=== PATIENT | female | born 1940 | race Caucasian/White ===

== ENCOUNTER 2018-01-01 06:16 | Observation (INO) ==
[2018-01-01] MEDS ORDERED: Chlorhexidine Gluconate 2% 1 Pack (2 Cloths) TOPICAL SCH (07:00)
[2018-01-01] MEDS ORDERED: Sodium Chlor 0.9% Inj 500 ML IV.SIG SCH (07:00)
[2018-01-01] MEDS ORDERED: Metoprolol Tartrate 25 MG Tablet PO SCH (07:00)
[2018-01-01] MEDS ORDERED: Heparin/NS PF Inj 500 ML ONE (07:02)
[2018-01-01] MEDS ORDERED: Protamine Sulfate Inj 50 MG/5 ML Vial ONE (07:02)
[2018-01-01] MEDS ORDERED: Heparin 10,000 UNITS/10 ML Vial (for IV use) ONE (07:02)
[2018-01-01] MEDS ORDERED: Thrombin Topical 20,000 UNIT Spray Kit TOPICAL ONE (07:02)
[2018-01-01] MEDS ORDERED: Bupivacaine PF 0.5% Inj 30 ML Vial ONE (07:02)
--- NOTE | 2018-01-01 07:13 | P.PNVS ---
- Pre-operative Note Planned Procedure: LEFT UE AVF (PTFE) Interval History: Pt has been feeling well - no F/C or other change in history that would preclude surgery Had reg HD yesterday Labs: pending Blood: none needed Imaging: duplex reviewed Orders: NPO VANC 1g IV OCTOR Post-operative Destination: PACU, CPCU Operative site marked: Yes Consent: Informed consent has been obtained from Leidy Hare. I have explained the procedure in detail and discussed the risks, benefits, and potential complications. All questions have been answered. Patient Contact Information: home #: [phone]
[2018-01-01] MEDS ORDERED: Famotidine PF Inj 20 MG/2 ML Vial ONE (07:34)
[2018-01-01 07:40] LABS: Baso # (Auto) 0.1 th/mm3 (0.0-0.2); Eos % (Auto) 0.6 % (0.0-4.0); Hematocrit 40.7 % (35.0-46.0); Hemoglobin 13.1 gm/dL (11.6-15.3); Lymph # (Auto) 1.5 th/mm3 (1.0-4.8); Mean Corpuscular HGB Conc 32.2 % (32.0-36.0); Mean Corpuscular Hemoglobin 32.1 pg (27.0-34.0); Mean Corpuscular Volume 99.9 fL (80.0-100.0); Mean Platelet Volume 7.3 fL (7.0-11.0); Mono # (Auto) 0.6 th/mm3 (0.0-0.9); Neut # (Auto) 5.6 th/mm3 (1.8-7.7); Neut % (Auto) 71.4 % (16.0-70.0); Platelet Count 153 th/mm3 (150-450); Red Blood Count 4.07 mil/mm3 (4.00-5.30); Red Cell Distribution Width 20.7 % (11.6-17.2); White Blood Count 7.8 th/mm3 (4.0-11.0)
[2018-01-01 07:42] LABS: INR 1.1 Ratio
[2018-01-01 07:54] LABS: Calcium 10.4 mg/dL (8.5-10.1); Potassium 4.4 meq/L (3.5-5.1)
--- NOTE | 2018-01-01 08:02 | ECG ---
Date Performed: 01/01/2018 Time Performed: 07:01:30 PTAGE: 77 years EKG: Sinus rhythm MINIMAL VOLTAGE CRITERIA FOR LVH, CONSIDER NORMAL VARIANT BORDERLINE ECG NO PREVIOUS TRACING DOCTOR: Quoc Young Interpretating Date/Time 01/01/2018 08:00:58
--- NOTE | 2018-01-01 09:23 | P.OP ---
Date of procedure: 01/01/18 Procedure: LEFT UE AVG (Ax-Ax loop with PTFE) Implants: 6mm PTFE Anesthesia: GETA Surgeon: Robles Ventura MD Estimated blood loss (mL): 30 IV fluids (mL): 550 Pathology: none sent Operation and Findings: 4mm axillary artery (chosen because of small brachial artery) 5mm axillary vein
[2018-01-01] MEDS ORDERED: Bisacodyl 10 MG Supp RECTAL PRN (09:24)
[2018-01-01] MEDS ORDERED: fentaNYL Citrate Inj 100 MCG/2 ML Ampul ONE (10:11)
[2018-01-01] MEDS ORDERED: Sodium Chlor 0.9% Inj 250 ML IV.SIG ONE (12:00)
[2018-01-01] MEDS ORDERED: Lidocaine PF 1% Inj 5 ML Syringe INFILTRATN ONE (12:00)
[2018-01-01] MEDS ORDERED: Phenylephrine/NS 1000 MCG/10ML Syringe IV.PUSH ONE (12:00)
--- NOTE | 2018-01-01 14:03 | MP ---
cc: Robles Ventura MD DATE OF OPERATION: 01/01/2018 PREOPERATIVE DIAGNOSIS: End-stage renal disease, need for hemodialysis access. POSTOPERATIVE DIAGNOSIS: End-stage renal disease, need for hemodialysis access. PROCEDURE PERFORMED: Left axillary artery to axillary vein arteriovenous loop graft. ATTENDING SURGEON: Robles Ventura MD CONTROL TOWER RADIO OPERATOR SURGEON: Stevie Carlisle. ANESTHESIA: General. INDICATIONS FOR PROCEDURE: Ms. Hare is a 77-year-old female who has end-stage renal disease and on dialysis. She is taken to the operating room for left upper extremity access creation. Because of autogenous conduit, a prosthetic was chosen. Intraoperatively, it was found she had a very small brachial artery and decision was made to perform an axillary artery to axillary vein AV loop graft. DESCRIPTION OF PROCEDURE: Informed consent was obtained from the patient. She was taken to the operating room and placed supine on the operating table. An appropriate timeout was taken to ensure the patient's identity, the operative site and planned procedure. The administration of 1 gram of vancomycin was initiated prior to skin incision and will be discontinued after a single preoperative dose. Vancomycin was chosen because of the patient's end-stage renal disease. Everyone in the room agreed with the timeout and we proceeded. Her left arm was prepped and draped. An incision was made in the antecubital, carried down through subcutaneous tissue with electrocautery. The brachial artery was identified and noted to be quite small. An incision made in the axilla and carried down through subcutaneous tissue with electrocautery. The axillary vein and artery were both identified and encircled with a vessel loop. A tunnel was then created between these 2 incisions and then a looped tunnel was then created on the anterior aspect of the upper arm. A 6 mm PTFE was placed through these 2 tunnels, taking caution not to twist it. The patient was systemically heparinized with 3000 units of IV heparin. Proximal and distal control of the axillary artery were obtained with profunda clamps and a longitudinal arteriotomy was made with an 11 blade, extended with [place] scissors. The graft was spatulated and sewn end-to-side with running 6-0 Prolene suture. At the completion, it was flushed and noted to be hemostatic. There was a Arlene soft jaw placed on the graft as the clamps were released. Proximal and distal control of the axillary vein were obtained with profunda clamps and a longitudinal venotomy was made with an 11 blade, extended with [place] scissors. The graft was cut to an appropriate length, spatulated and sewn end-to-side with running 5-0 Prolene suture. At the completion it was flushed and noted to be hemostatic. The clamps were released. There was a nice Doppler signal in the wrist and an excellent palpable thrill in the graft. The wounds were made hemostatic, infiltrated with Marcaine and closed with 2-0 Polysorb, 3-0 Polysorb and 4-0 Monocryl. The sponge and needle counts were correct at the end of the case. I was present, scrubbed, and performed the entire procedure. MD LYNDA Odom/EPIFANIO , 01:26 PM , 02:01 PM
--- NOTE | 2018-01-01 17:40 | P.CONNP ---
History of Present Illness Service: Nephrology Consult date: 01/01/18 Requesting Physician: Robles Ventura Reason for Consult: ESRD on HD, dialysis management Primary Care Provider: No Primary Care Physician Family Provider: No Primary Care Physician Chief Complaint: HD access creation History of Present Illness: The patient is a 77 yo [place] female who was admitted to this facility today by Dr. Ventura for AVG placement. She is a dialysis patient at [facility] where she receives HD via [facility] T[facility]. Her attending dress operator is Dr. Cota who does not have privileges at this facility. Been on HD x2 months. Underlying renal failure believed to be 2/2 to hypertensive nephrosclerosis. Still urinates. Has ileostomy with reported high output. States typical UF of only 1-1.5L to her knowledge. She underwent AVG surgery today without apparent complications. We have been consulted for dialysis management. Last outpatient HD was 12/31/17. Review of Systems All other systems reviewed negative except as stated in HPI PMFSH - History History Provided By: Patient - Medical History Medical History: Medical History (Last Updated 01/01/18 @ 17:51 by DOLORES Ibrahim) Absent parathyroid gland Anemia Diverticulitis of colon with perforation End stage renal disease on dialysis History of blood product transfusion Hx of hysterectomy Hypertension Vascular dialysis catheter in place - Surgical History Surgical History: Surgical History (Last Reviewed 01/01/18 @ 11:43 by Michelle Smiley) Hx of colostomy Hx of ileostomy - Family History Family History: Family History (Last Updated 01/01/18 @ 17:52 by DOLORES Ibrahim) Son Kidney disease Daughter Kidney disease - Tobacco History Second Hand Smoke Exposure: No Tobacco Use In Past 30 Days: No Smoking Status: Never smoker - Alcohol History How Often Do You Have a Drink Containing Alcohol: Never - Substance Use History Substance History: No History of Abuse - Travel History Recent Travel in the [place] Within the Last 8 Weeks: No Recent Travel Out of the Country Within the Last 8 Weeks: No Medications and Allergies Active Medications: Active Medications Apixaban (Eliquis) 5 mg PO BID [place] Bisacodyl (Dulcolax Supp) 10 mg RECTAL DAILY PRN PRN Reason: SEVERE CONSITIPATION Chlorhexidine Gluconate (Chlorhexidine 2% Cloth) 3 pack TOPICAL [employer]IN CLEANER [facility] Stop: 01/04/18 06:50 Last Admin: 01/01/18 07:10 Dose: 3 pack Famotidine (Pepcid) 10 mg PO BID [facility] Heparin Sodium (Porcine) (Heparin Inj) 5,000 units SQ Q8H [facility] Hydromorphone HCl (Dilaudid) 2 mg PO Q4H PRN PRN Reason: PAIN SCALE 6 TO 10 Lactated Ringer's (Lr 1000 Ml Inj) 1,000 mls @ 30 mls/hr IV.SIG .Q24H [facility] Stop: 01/04/18 06:50 Last Admin: 01/01/18 07:30 Dose: 30 mls/hr Sodium Chloride (Ns Inj) 500 mls @ 30 mls/hr IV.SIG .Q10H [facility] Stop: 01/04/18 06:50 Lactulose (Lactulose Liq) 30 ml PO DAILY PRN PRN Reason: SEVERE CONSITIPATION Metoprolol Tartrate (Lopressor) 25 mg PO BIN CLEANER [facility] Stop: 01/04/18 06:50 Last Admin: 01/01/18 07:47 Dose: 25 mg Metoprolol Tartrate (Lopressor) 50 mg PO BID [facility] Miscellaneous Information (Misc Nursing Information) 1 each OTHER UNSCH PRN PRN Reason: SEE LABEL COMMENTS Stop: 01/02/18 11:03 Oxycodone HCl (Roxicodone) 5 mg PO Q4H PRN PRN Reason: PAIN SCALE 1 TO 5 Last Admin: 01/01/18 15:50 Dose: 5 mg Patient Own Medication - ( Febuxostat [Uloric] 40 Mg) Tablet 1 each PO DAILY [facility] Povidone Iodine (Betadine 5% Antisepsis Kit) 1 applicatio EACH N[employer]ANER [facility] Stop: 01/04/18 06:50 Last Admin: 01/01/18 07:51 Dose: 1 applicatio Senna/Docusate Sodium (Aidee-Colace) 1 tab PO BID [facility] Sennosides (Senokot) 17.2 mg PO Q12H PRN PRN Reason: Moderate Constipation Allergies Allergy/AdvReac Type Severity Reaction Status Date / Time Sulfa (Sulfonamide Allergy Swelling Verified 01/01/18 06:45 Antibiotics) Home Medications Medication Instructions Recorded Confirmed Type apixaban [Eliquis] 5 mg PO BID 01/01/18 01/01/18 History febuxostat [Uloric] 40 mg PO DAILY 01/01/18 01/01/18 History metoprolol tartrate 50 mg PO BID 01/01/18 01/01/18 History tramadol 50 mg PO Q6H PRN 01/01/18 01/01/18 History Exam Vital signs: Vital Signs 01/01/18 07:35 01/01/18 10:01 01/01/18 10:15 Temperature 97.5 F L 97.2 F L Pulse Rate 91 H 90 90 Respiratory Rate 16 16 16 Blood Pressure 178/81 H 125/56 L 129/60 Pulse Oximetry 100 100 97 01/01/18 10:30 01/01/18 10:45 01/01/18 11:00 Temperature Pulse Rate 86 90 80 Respiratory Rate 16 16 16 Blood Pressure 120/59 L 118/56 L 108/60 Pulse Oximetry 96 98 97 01/01/18 11:30 01/01/18 11:45 01/01/18 14:00 Temperature 98.0 F Pulse Rate 84 84 81 Respiratory Rate 16 16 Blood Pressure 118/57 L 131/61 Pulse Oximetry 97 98 01/01/18 15:37 01/01/18 16:00 01/01/18 17:00 Temperature 98.4 F Pulse Rate 82 82 84 Respiratory Rate 16 Blood Pressure 121/59 L Pulse Oximetry 99 Intake & Output 12/31/17 01/01/18 01/01/18 18:59 06:59 18:59 Intake Total 1050 / 1050 Output Total 30 / 30 Balance 1020 / 1020 Weight 53.1 kg 53.1 kg Intake: IV 500 / 500 Heparin/NS PF Inj 500 ML @ 0 500 / 500 mls/hr .ROUTE .[facility] Rx#: [id number] Anesthesia Amount 550 / 550 Output: Estimated Blood Loss 30 / 30 Other: Weight On Admission 53.1 kg - Constitutional no acute distress - Routine HEENT Exam Head: Present: normocephalic, atraumatic - Routine Neck Exam Present: supple, full ROM Comments: surgical scar present midline c/w parathyroidectomy - Routine Respiratory Exam Present: CTA bilaterally - Routine Cardiovascular Exam Present: RRR, S1, S2 - Routine Abdominal Exam Present: soft, normoactive bowel sounds Comments: Ileostomy present RLQ - Routine Extremities Exam Present: edema (trace edema B ankles), vascular access ([facility]. Newly created AVG LUE) - Routine Skin Exam Present: intact - Routine Neurological Exam Present: alert, oriented X3 Results - Lab Results 01/01/18 07:20 01/01/18 07:20 Most recent lab results Calcium 10.4 mg/dL (8.5-10.1) H 01/01/18 07:20 Assessment and Plan - Assessment (1) ESRD on dialysis Code(s): N18.6 - End stage renal disease; Z99.2 - Dependence on renal dialysis Status: Acute Plan: HD tomorrow as per regular outpatient schedule via [facility]. Attempted to contact her home dialysis facility for her regular dialysis orders , but unfortunately was placed on hold and no one ever came to phone. Minimal edema and the patient reports she still urinates quite frequently. UF 1- 1.5L as tolerated. OK to D/C after HD tomorrow if cleared by Dr. Ventura. Dialysis team aware. (2) Hypertension Code(s): I10 - Essential (primary) hypertension Status: Acute Plan: BP overall stable. (3) Hypercalcemia Code(s): E83.52 - Hypercalcemia Status: Acute - Plan Hx of hyperparathyroidism. Defer to home dress operator.
[2018-01-01] MEDS ORDERED: Gelatin 12 MM/7 MM Topical Foam TOPICAL PRN (18:00)
[2018-01-01] MEDS ORDERED: Acetaminophen 325 MG Tablet PO PRN (18:00)
[2018-01-01] MEDS ORDERED: Heparin 10,000 UNITS/10 ML Vial (for IV use) IV.FLUSH PRN (18:00)
[2018-01-01] MEDS ORDERED: Sod Chloride 0.9% Inj 1,000 ML OTHER PRN ×2 (18:00)
[2018-01-01] MEDS ORDERED: Heparin 10,000 UNITS/10 ML Vial (for IV use) OTHER PRN (18:00)
[2018-01-01] MEDS ORDERED: Albumin Human 25% Inj 100 ML IV.SIG PRN (18:00)
[2018-01-01] MEDS ORDERED: Sod Chloride 0.9% Inj 1,000 ML IV.CONT PRN (18:00)
[2018-01-01] MEDS: Metoprolol Tartrate 50 MG Tablet PO SCH (20:55)
[2018-01-01] MEDS: Famotidine 20 MG Tablet PO SCH (20:56)
[2018-01-01] MEDS: Senna/Docusate Sodium 8.6/50 MG Tablet PO SCH (20:56)
[2018-01-01] MEDS ORDERED: Famotidine 20 MG Tablet PO SCH (21:00)
[2018-01-01 22:02] LABS: Hepatitis A IgM Antibody Nonreactive (Nonreactive); Hepatitits B Surface Antigen Nonreactive (Nonreactive)
[2018-01-01] MEDS: Morphine Inj 4 MG/ML Vial IV.PUSH SCH (23:19)
[2018-01-02] MEDS: Morphine Inj 4 MG/ML Vial IV.PUSH SCH ×3 (03:18→05:17)
[2018-01-02 04:15] LABS: Baso # (Auto) 0.1 th/mm3 (0.0-0.2); Baso % (Auto) 0.7 % (0.0-2.0); Eos # (Auto) 0.1 th/mm3 (0.0-0.4); Eos % (Auto) 1.4 % (0.0-4.0); Hematocrit 34.5 % (35.0-46.0); Hemoglobin 11.5 gm/dL (11.6-15.3); Lymph # (Auto) 1.7 th/mm3 (1.0-4.8); Lymph % (Auto) 21.5 % (9.0-44.0); Mean Corpuscular HGB Conc 33.3 % (32.0-36.0); Mean Corpuscular Hemoglobin 33.4 pg (27.0-34.0); Mean Corpuscular Volume 100.2 fL (80.0-100.0); Mean Platelet Volume 7.9 fL (7.0-11.0); Mono # (Auto) 0.6 th/mm3 (0.0-0.9); Mono % (Auto) 7.9 % (0.0-8.0); Neut # (Auto) 5.5 th/mm3 (1.8-7.7); Neut % (Auto) 68.5 % (16.0-70.0); Platelet Count 135 th/mm3 (150-450); Red Blood Count 3.44 mil/mm3 (4.00-5.30); Red Cell Distribution Width 20.7 % (11.6-17.2)
[2018-01-02 05:12] LABS: Albumin 2.5 g/dL (3.4-5.0); Calcium 9.2 mg/dL (8.5-10.1); Carbon Dioxide 16.6 meq/L (21.0-32.0); Phosphorus 5.1 mg/dL (2.5-4.9)
[2018-01-02 06:17] LABS: Ovalocytes 1+
[2018-01-02 06:18] LABS: Platelet Morphology Normal (Normal); Polychromasia 2.5 % (0.0-1.9)
--- NOTE | 2018-01-02 07:53 | P.PNVS ---
Subjective Post Op Day #: 1 Procedure: L ax-ax loop AVG Subjective/Hospital Course: Pt c/o axillary incisional pain last night req IV meds better this morning This morning, she does have nausea but no SOB - improved with Zofran otherwise ok hand ok Objective Vital Signs / I&O: Vital Signs 01/01/18 10:01 01/01/18 10:15 01/01/18 10:30 Temperature 97.2 F L Pulse Rate 90 90 86 Respiratory Rate 16 16 16 Blood Pressure 125/56 L 129/60 120/59 L Pulse Oximetry 100 97 96 01/01/18 10:45 01/01/18 11:00 01/01/18 11:30 Temperature Pulse Rate 90 80 84 Respiratory Rate 16 16 16 Blood Pressure 118/56 L 108/60 118/57 L Pulse Oximetry 98 97 97 01/01/18 11:45 01/01/18 14:00 01/01/18 15:37 Temperature 98.0 F Pulse Rate 84 81 82 Respiratory Rate 16 Blood Pressure 131/61 Pulse Oximetry 98 01/01/18 16:00 01/01/18 17:00 01/01/18 18:00 Temperature 98.4 F Pulse Rate 82 84 86 Respiratory Rate 16 Blood Pressure 121/59 L Pulse Oximetry 99 01/01/18 19:00 01/01/18 20:00 01/01/18 21:00 Temperature 98 F Pulse Rate 89 88 88 Respiratory Rate 18 Blood Pressure 128/60 Pulse Oximetry 100 100 01/01/18 22:00 01/01/18 23:00 01/02/18 00:00 Temperature 97.8 F Pulse Rate 88 69 86 Respiratory Rate 18 22 Blood Pressure 137/64 Pulse Oximetry 100 01/02/18 01:00 01/02/18 01:18 01/02/18 02:00 Temperature Pulse Rate 90 92 H Respiratory Rate 22 Blood Pressure Pulse Oximetry 01/02/18 03:00 01/02/18 04:00 01/02/18 05:00 Temperature 98.1 F 97.8 F Pulse Rate 90 90 88 Respiratory Rate 20 20 Blood Pressure 121/66 126/70 Pulse Oximetry 98 99 01/02/18 06:00 Temperature Pulse Rate 85 Respiratory Rate Blood Pressure Pulse Oximetry Intake & Output 01/01/18 01/02/18 01/02/18 18:59 06:59 18:59 Intake Total 1530 / 1530 910 / 910 Output Total 30 / 30 Balance 1500 / 1500 910 / 910 Weight 53.1 kg 55 kg Intake: IV 500 / 500 Heparin/NS PF Inj 500 ML @ 0 500 / 500 mls/hr .ROUTE .[facility] Rx#: [id number] Oral 480 / 480 360 / 360 Anesthesia Amount 550 / 550 550 / 550 Output: Estimated Blood Loss 30 / 30 Other: # Voids 1 1 # Bowel Movements 1 1 Weight On Admission 53.1 kg Exam: L brachial and axillary incisions intact, ecchymoses + thrill hand strength ok Laboratory Results - last 24 hr 01/01/18 01/01/18 01/01/18 07:20 07:20 07:20 WBC 7.8 Corrected WBC RBC 4.07 Hgb 13.1 Hct 40.7 MCV 99.9 MCH 32.1 MCHC 32.2 RDW 20.7 H Plt Count 153 MPV 7.3 Prelim Diff (Auto) Slide review pending Neut % (Auto) 71.4 H Lymph % (Auto) 19.0 Travis % (Auto) 8.0 Eos % (Auto) 0.6 Baso % (Auto) 1.0 Neut # (Auto) 5.6 Lymph # (Auto) 1.5 Travis # (Auto) 0.6 Eos # (Auto) 0.0 Baso # (Auto) 0.1 WBC Differential . Diff Scan Auto diff confirmed Differential Comment . Platelet Estimate Platelet Morphology Polychromasia Ovalocytes Keratocytes Hematology Comments Sodium 137 Potassium 4.4 Chloride 103 Carbon Dioxide 26.0 Anion Gap 8 BUN 26 H Creatinine 4.23 H Estimated GFR 10 L Random Glucose 97 Calcium 10.4 H Phosphorus Albumin Hepatitis A IgM Ab Hep Bs Antigen Hep B Core IgM Ab Hep C IgG Ab Blood Type B Positive Blood Type Recheck Antibody Screen Positive H Ab Screen Tube Method Positive H Antibody Identification Direct Antiglob Test Weakly positive H Crossmatch MTS Gel Crossmatch See Detail 01/01/18 01/01/18 01/01/18 08:59 13:40 19:00 WBC Corrected WBC RBC Hgb Hct MCV MCH MCHC RDW Plt Count MPV Prelim Diff (Auto) Neut % (Auto) Lymph % (Auto) Travis % (Auto) Eos % (Auto) Baso % (Auto) Neut # (Auto) Lymph # (Auto) Travis # (Auto) Eos # (Auto) Baso # (Auto) WBC Differential Diff Scan Differential Comment Platelet Estimate Platelet Morphology Polychromasia Ovalocytes Keratocytes Hematology Comments Sodium Potassium Chloride Carbon Dioxide Anion Gap BUN Creatinine Estimated GFR Random Glucose Calcium Phosphorus Albumin Hepatitis A IgM Ab Nonreactive Hep Bs Antigen Nonreactive Hep B Core IgM Ab Nonreactive Hep C IgG Ab Nonreactive Blood Type Blood Type Recheck Antibody Screen Ab Screen Tube Method Positive H Antibody Identification Rouleaux Direct Antiglob Test Crossmatch See Detail MTS Gel Crossmatch See Detail 01/02/18 01/02/18 01/02/18 03:18 03:19 03:19 WBC Cancelled 8.0 Corrected WBC Cancelled RBC Cancelled 3.44 L Hgb Cancelled 11.5 L Hct Cancelled 34.5 L MCV Cancelled 100.2 H MCH Cancelled 33.4 MCHC Cancelled 33.3 RDW Cancelled 20.7 H Plt Count Cancelled 135 L MPV Cancelled 7.9 Prelim Diff (Auto) Slide review pending Neut % (Auto) 68.5 Lymph % (Auto) 21.5 Travis % (Auto) 7.9 Eos % (Auto) 1.4 Baso % (Auto) 0.7 Neut # (Auto) 5.5 Lymph # (Auto) 1.7 Travis # (Auto) 0.6 Eos # (Auto) 0.1 Baso # (Auto) 0.1 WBC Differential . Diff Scan Auto diff confirmed Differential Comment . Platelet Estimate Low L Platelet Morphology Normal Polychromasia 2.5 H Ovalocytes 1+ H Keratocytes Occ H Hematology Comments Cancelled Sodium 132 L Potassium 5.0 Chloride 104 Carbon Dioxide 16.6 L D Anion Gap 11 BUN 33 H Creatinine 5.18 H Estimated GFR 8 L Random Glucose 83 Calcium 9.2 D Phosphorus 5.1 H Albumin 2.5 L Hepatitis A IgM Ab Hep Bs Antigen Hep B Core IgM Ab Hep C IgG Ab Blood Type Blood Type Recheck Antibody Screen Ab Screen Tube Method Antibody Identification Direct Antiglob Test Crossmatch MTS Gel Crossmatch Assessment and Plan - Assessment (1) ESRD on dialysis Code(s): N18.6 - End stage renal disease; Z99.2 - Dependence on renal dialysis Status: Acute - Plan POD#1 s/p L UE AVG 1. Nausea subsided, pain seems to be better controlled 2. HD this morning 3. Will reassess after HD and likely d/c today Discharge Planning: likely today after HD
[2018-01-02] MEDS ORDERED: FEBUXOSTAT 40 MG PO SCH (09:00)
[2018-01-02] MEDS ORDERED: Heparin - SQ 10,000 UNITS/ML Vial SQ SCH (10:00)
[2018-01-02] MEDS: Senna/Docusate Sodium 8.6/50 MG Tablet PO SCH (11:52)
[2018-01-02] MEDS: Metoprolol Tartrate 50 MG Tablet PO SCH (11:52)
[2018-01-02] MEDS: Famotidine 20 MG Tablet PO SCH (11:53)
--- NOTE | 2018-01-02 12:57 | P.DS ---
Discharge Summary - Admission Date 01/01/18 09:24 - Admission Diagnosis (1) ESRD on dialysis - Discharge Date 01/02/18 - Discharge Diagnosis (1) AVF (arteriovenous fistula) Status: Acute (2) ESRD on dialysis Status: Chronic - Summary Brief History from admission: Pt with a hx of ESRD on HD admitted for L UE access revision Procedure: L ax-ax loop AVG Significant Findings: + thrill Pt with L UE swelling and ecchymosis Palpable radial pulse present No hand pain Abnormal Lab Results 01/01/18 01/01/18 01/01/18 07:20 08:59 13:40 WBC Corrected WBC RBC Hgb Hct MCV MCH MCHC RDW Plt Count MPV Prelim Diff (Auto) Neut % (Auto) Lymph % (Auto) Dare % (Auto) Eos % (Auto) Baso % (Auto) Neut # (Auto) Lymph # (Auto) Dare # (Auto) Eos # (Auto) Baso # (Auto) WBC Differential Diff Scan Differential Comment Platelet Estimate Platelet Morphology Polychromasia Ovalocytes Keratocytes Hematology Comments Sodium Potassium Chloride Carbon Dioxide Anion Gap BUN Creatinine Estimated GFR Random Glucose Calcium Phosphorus Albumin Hepatitis A IgM Ab Hep Bs Antigen Hep B Core IgM Ab Hep C IgG Ab Ab Screen Tube Method Positive H Antibody Identification Rouleaux Crossmatch See Detail MTS Gel Crossmatch See Detail See Detail 01/01/18 01/02/18 01/02/18 19:00 03:18 03:19 WBC Cancelled Corrected WBC Cancelled RBC Cancelled Hgb Cancelled Hct Cancelled MCV Cancelled MCH Cancelled MCHC Cancelled RDW Cancelled Plt Count Cancelled MPV Cancelled Prelim Diff (Auto) Neut % (Auto) Lymph % (Auto) Dare % (Auto) Eos % (Auto) Baso % (Auto) Neut # (Auto) Lymph # (Auto) Dare # (Auto) Eos # (Auto) Baso # (Auto) WBC Differential Diff Scan Differential Comment Platelet Estimate Platelet Morphology Polychromasia Ovalocytes Keratocytes Hematology Comments Cancelled Sodium 132 L Potassium 5.0 Chloride 104 Carbon Dioxide 16.6 L D Anion Gap 11 BUN 33 H Creatinine 5.18 H Estimated GFR 8 L Random Glucose 83 Calcium 9.2 D Phosphorus 5.1 H Albumin 2.5 L Hepatitis A IgM Ab Nonreactive Hep Bs Antigen Nonreactive Hep B Core IgM Ab Nonreactive Hep C IgG Ab Nonreactive Ab Screen Tube Method Antibody Identification Crossmatch MTS Gel Crossmatch 01/02/18 03:19 WBC 8.0 Corrected WBC RBC 3.44 L Hgb 11.5 L Hct 34.5 L MCV 100.2 H MCH 33.4 MCHC 33.3 RDW 20.7 H Plt Count 135 L MPV 7.9 Prelim Diff (Auto) Slide review pending Neut % (Auto) 68.5 Lymph % (Auto) 21.5 Dare % (Auto) 7.9 Eos % (Auto) 1.4 Baso % (Auto) 0.7 Neut # (Auto) 5.5 Lymph # (Auto) 1.7 Dare # (Auto) 0.6 Eos # (Auto) 0.1 Baso # (Auto) 0.1 WBC Differential . Diff Scan Auto diff confirmed Differential Comment . Platelet Estimate Low L Platelet Morphology Normal Polychromasia 2.5 H Ovalocytes 1+ H Keratocytes Occ H Hematology Comments Sodium Potassium Chloride Carbon Dioxide Anion Gap BUN Creatinine Estimated GFR Random Glucose Calcium Phosphorus Albumin Hepatitis A IgM Ab Hep Bs Antigen Hep B Core IgM Ab Hep C IgG Ab Ab Screen Tube Method Antibody Identification Crossmatch MTS Gel Crossmatch Hospital Course: 77/F with a PMH of ESRD admitted for a L UE access revision POD 1 pt doing well w/ c/o nausea this am (relieved with Zofran) HD done this am pt w/o nausea or vomiting Pt clear for d/c with post op follow up in 3W D/C care and management discussed w/ pt all questions answered E- Forcse reviewed- Rx out pt pain medication for post operative pain control - Discharge Instructions Any questions or concerns: Call [facility] at [facility] [phone] Discharge Plan - Discharge Disposition Patient Disposition: 01 Discharge Home - Discharge Condition Condition: Good - Discharge Order Discharge Orders: Discharge Order (Routine); Ordered 01/02/18 Ordered By: Krista Le - Discharge Details Anticipated Discharge Date: 01/02/18 - Physicians Team Primary Care Provider: Primary Care Neema Veliz Attending Provider: Robles Ventura Other Providers: Tosha Umanzor MD - Rxs /Orders / Referrals /Forms Prescriptions: New hydrocodone-acetaminophen [[place]] 5-325 mg Tablet 1 tab PO Q4H PRN (Reason: Pain) 3 Days Qty: 18 RF: 0 ondansetron [Zofran ODT] 4 mg Tablet,Disintegrating 4 mg PO Q6-8H PRN (Reason: nausea) 3 Days Qty: 12 RF: 0 Continue apixaban [Eliquis] 5 mg Tablet 5 mg PO BID febuxostat [Uloric] 40 mg Tablet 40 mg PO DAILY metoprolol tartrate 50 mg Tablet 50 mg PO BID tramadol 50 mg Tablet 50 mg PO Q6H PRN (Reason: Pain) Referrals: Primary Care Neema Veliz [Primary Care Provider] - See Instructions - Discharge Instructions Additional Instructions: DIET You may resume your dialysis diet MEDICATION You may resume your daily home medications You were prescribed a narcotic pain medication that may cause constipation- Take with an over the counter stool softener You were prescribed a narcotic pain medication that may cause drowsiness- No driving while taking this medication WOUND CARE You may shower then pat dry incision Leave your incision open to air Do not apply any creams or ointments to your incision as it may loosen the surgical glue Call to report an increase in redness, drainage or swelling ACTIVITY Activity as tolerated No heavy lifting over a gallon of milk- left arm- for 10 days No B/P readings or lab draws - Left arm
== END 2018-01-02 13:57 | disposition home or self-care (01) ==
LOC: HCPC 06:16 → HSDC 06:16
PROVIDERS: ADMIT Surgery; ATTEND Surgery
PROC: AVGFTUE (ICD-10-PCS; 2018-01-01 08:03)

== ENCOUNTER 2018-01-10 11:48 | Inpatient (IN) ==
[2018-01-10] MEDS ORDERED: Albumin Human 25% Inj 100 ML IV.SIG PRN (19:42)
[2018-01-10] MEDS ORDERED: Sod Chloride 0.9% Inj 1,000 ML OTHER PRN ×2 (19:42)
[2018-01-10] MEDS ORDERED: Gelatin 12 MM/7 MM Topical Foam TOPICAL PRN (19:42)
[2018-01-10] MEDS ORDERED: Heparin 10,000 UNITS/10 ML Vial (for IV use) OTHER PRN (19:42)
[2018-01-10] MEDS ORDERED: Sod Chloride 0.9% Inj 1,000 ML IV.CONT PRN (19:42)
[2018-01-10] MEDS ORDERED: Acetaminophen 325 MG Tablet PO PRN (19:42)
--- NOTE | 2018-01-10 20:01 | P.CONNP ---
History of Present Illness Service: Nephrology Consult date: 01/10/18 Requesting Physician: Jameson Huff Reason for Consult: ESRD management Primary Care Provider: No Primary Care Physician Family Provider: No Primary Care Physician History of Present Illness: Patient is a 77-year-old white female with history of end-stage renal disease, ileostomy, she stated that she had left AV graft placed on 01/01/[address] Ventura, she goes to dialysis on Saturday, and Saturday, her last dialysis was on Saturday and she missed her dialysis on as she developed diarrhea and some nausea and stated she was too weak and sick to go to dialysis, today she went to the emergency has left arm is hurting, there is swelling present in the left arm as well, she said her stomach has been and she has some nausea which is persistent, she states she has a diverticular rupture causing colostomy and colon surgery, after 2 years it was reversed and she had complications including abdominal pain diarrhea and constipation, she had another procedure and underwent ileostomy as she has too many adhesions. Patient stated that she started hemodialysis since September. Review of Systems Constitutional: Reports anorexia, Reports weight loss Eyes: Denies blind spots, Denies blurry vision, Denies bulging eyes, Denies change in vision, Denies double vision, Denies discharge, Denies dry eyes, Denies floaters, Denies irritation, Denies itchy eyes, Denies loss of vision, Denies pain, Denies requires corrective lenses, Denies sensitivity to light, Denies other Ears, Nose, Mouth, and Throat: Denies abnormal hearing, Denies bleeding gums, Denies bad breath, Denies change in voice, Denies dental pain, Denies difficulty swallowing, Denies dizziness, Denies dry mouth, Denies ear discharge , Denies ear pain, Denies facial pain, Denies headache(s), Denies hearing loss, Denies hoarseness, Denies lip swelling, Denies nosebleed, Denies mouth lesions, Denies mouth pain, Denies nasal congestion, Denies nasal discharge, Denies nasal obstruction, Denies nasal trauma, Denies neck lump, Denies neck pain, Denies nose pain, Denies pain with swallowing, Denies poor balance, Denies post nasal drip, Denies ringing in the ears, Denies sinus pain, Denies sinus pressure , Denies sore throat, Denies throat swelling, Denies tongue swelling, Denies other Cardiovascular: Denies chest pain, Denies chest pain at rest, Denies chest pain with activity, Denies excessive sweating, Denies fainting, Denies fast heart rate, Denies foot swelling, Denies generalized swelling, Denies irregular heart rhythm, Denies leg pain with activity, Denies leg sores, Denies leg swelling, Denies lightheadedness, Denies radiating jaw, neck or arm pain, Denies rapid, pounding, or irregular heartbeat, Denies shortness of breath, Denies shortness of breath with activity, Denies shortness of breath when lying down, Denies shortness of breath causing sudden awakening, Denies slow heart rate, Denies other Respiratory: Denies change in phlegm color, Denies chest congestion, Denies cough, Denies coughing up blood, Denies excessive phlegm production, Denies pain on inspiration, Denies pain with cough, Denies shortness of breath, Denies shortness of breath with activity, Denies snoring, Denies stridor, Denies wheezing, Denies other Gastrointestinal: Reports abdominal pain, Reports nausea Musculoskeletal: Reports joint pain, Reports radiating pain into limb Neurologic: Reports weakness PMFSH - History History Provided By: Patient - Medical History Medical History: Medical History (Last Reviewed 01/10/18 @ 19:46 by Telma Nguyen RN) Absent parathyroid gland Anemia DVT (deep venous thrombosis) Diverticulitis of colon with perforation End stage renal disease on dialysis History of blood product transfusion Hx of hysterectomy Hypertension Pulmonary embolism Vascular dialysis catheter in place - Surgical History Surgical History: Surgical History (Last Reviewed 01/10/18 @ 12:25 by Oksana Andrews RN) Hx of colostomy Hx of ileostomy - Family History Family History: Family History (Last Reviewed 01/10/18 @ 12:26 by Oksana Andrews RN) Son Kidney disease Daughter Kidney disease - Tobacco History Second Hand Smoke Exposure: No Smoking Status: Never smoker - Alcohol History How Often Do You Have a Drink Containing Alcohol: Never - Substance Use History Substance History: No History of Abuse Medications and Allergies Active Medications: Active Medications Acetaminophen (Tylenol) 650 mg PO Q4H PRN PRN Reason: Temp > 100.4 Acetaminophen (Tylenol) 650 mg PO UNSCH PRN PRN Reason: SEE LABEL COMMENTS Clonidine HCl (Catapres) 0.1 mg PO UNSCH PRN PRN Reason: SEE LABEL COMMENTS Diphenhydramine HCl (Benadryl) 25 mg PO UNSCH PRN PRN Reason: SEE LABEL COMMENTS Epoetin Justice (Epogen Inj) 4,000 unit IV.PUSH UNSCH PRN PRN Reason: SEE LABEL COMMENTS Gelatin (Gelfoam 12 Mm/7 Mm Topical) 1 foam TOPICAL PRN PRN PRN Reason: help stop bleeding from site Gentamicin Sulfate (Gentamicin Inj) 20 mg OTHER WITH DIALYSIS PRN PRN Reason: Dwell Gentamycin Lock Heparin Sodium (Porcine) (Heparin Inj) 8,000 units OTHER WITH DIALYSIS PRN PRN Reason: for machine prime Heparin Sodium (Porcine) (Heparin Inj) 1,000 units OTHER WITH DIALYSIS PRN PRN Reason: Dwell Heparin to Fill Catheter Sodium Chloride (Ns Inj) 1,000 mls @ 0 mls/hr OTHER .Q0M PRN PRN Reason: for prime and rinse back Sodium Chloride (Ns Inj) 1,000 mls @ 200 mls/hr OTHER .Q5H PRN PRN Reason: for dialyzer flush PRN Sodium Chloride (Ns Inj) 1,000 mls @ 0 mls/hr IV.CONT .Q0M PRN PRN Reason: hypotension / volume replace Albumin Human (Flexbumin 25% Inj) 100 mls @ 60 mls/hr IV.SIG WITH DIALYSIS PRN PRN Reason: hypotension / volume replace Lactulose (Lactulose Liq) 30 ml PO DAILY PRN PRN Reason: SEVERE CONSITIPATION Mannitol (Mannitol Inj) 12.5 gm IV.PUSH UNSCH PRN PRN Reason: hypotension / volume replace Nitroglycerin (Nitrostat Sl) 0.4 mg SL Q5M PRN PRN Reason: CHEST PAIN Ondansetron HCl (Zofran Inj) 4 mg IV.PUSH UNSCH PRN PRN Reason: NAUSEA OR VOMITING Senna/Docusate Sodium (Aidee-Colace) 1 tab PO BID [place] Sodium Chloride (Ns Flush) 5 ml IV.FLUSH PRN PRN PRN Reason: flush each lumen during HD Allergies Allergy/AdvReac Type Severity Reaction Status Date / Time Sulfa (Sulfonamide Allergy Swelling Verified 01/10/18 12:23 Antibiotics) Home Medications Medication Instructions Recorded Confirmed Type apixaban [Eliquis] 5 mg PO BID 01/10/18 01/11/18 History febuxostat [Uloric] 40 mg PO DAILY 01/10/18 01/11/18 History metoprolol tartrate 50 mg PO BID 01/10/18 01/11/18 History ondansetron HCl [Zofran] 8 mg PO TID PRN 01/10/18 01/11/18 History tramadol 50 mg PO Q6H 01/10/18 01/11/18 History Exam Vital signs: Intake & Output 01/10/18 01/10/18 01/11/18 06:59 18:59 06:59 Weight 52.3 kg Other: Weight On Admission 52.3 kg - Constitutional no acute distress - Routine HEENT Exam Head: Present: normocephalic - Routine Neck Exam Present: supple, full ROM - Routine Respiratory Exam Present: CTA bilaterally - Routine Cardiovascular Exam Present: RRR - Routine Abdominal Exam Present: soft, tenderness (Ileostomy in place) - Routine Extremities Exam Present: tenderness (Left arm AV graft positive thrill) - Routine Neurological Exam Present: alert, oriented X3 Results - Lab Results 01/11/18 04:15 01/11/18 04:15 Assessment and Plan - Assessment (1) ESRD on dialysis Code(s): N18.6 - End stage renal disease; Z99.2 - Dependence on renal dialysis Status: Chronic Plan: Patient goes on dialysis on Saturday, and Saturday next dialysis is due on Saturday, potassium is 5.3 Continue to monitor her while in the hospital, patient has permacath and she will require hemodialysis while in the hospital This can be done in the morning I placed orders for hemodialysis tomorrow AV graft with positive thrill and I do not think it is infected there is localized edema due to recent surgery vascular surgery has been consulted (2) Hypertension Code(s): I10 - Essential (primary) hypertension Status: Acute Plan: Continue to monitor blood pressure (2) Hypertension Qualifiers: Hypertension type: essential hypertension Qualified Code(s): I10 - Essential (primary) hypertension
[2018-01-10] MEDS ORDERED: Dextrose 5%/NaCl 0.45% Inj 500 ML IV.SIG ONE (20:42)
--- NOTE | 2018-01-10 20:57 | P.HPIM ---
History of Present Illness Primary Care Physician: No Primary Care Physician History of Present Illness: This is a 77 year female with a PMH of HTN, H/o Perforated Diverticulitis s/p Colostomy, ESRD on HD / and s/p AVG placement 01/01/[address] Ventura who was transferred from [place] for admission due to LUE swelling. Pt reports left arm swelling x2 days in addition to generalized weakness and several episodes of diarrhea. C diff cultures sent in [place], pending results. Denies fever or chills. On arrival, has been hypotensive w/ BP 81/45, HR 89, O2 sat 100% on RA, Afebrile. Labs from today w/ WBC normal, Hgb 11.3, INR 1.0, K+ 5.3, Creatinine 7.0. Seen by Dr. Arash gonzalez/ no indication for surgical intervention at this time. S/p eval by Dr. Beau gonzalez/ plans for continued HD. Shortly after admission, pt also noted to by lethargic, BS 40's, s/p hypoglycemic protocol. Pt denies any complaints at this time, states "I'm hungry". - Diagnosis (1) AVF (arteriovenous fistula) (2) ESRD on dialysis (3) Hypotension (4) Hypoglycemia (5) Diarrhea Inpatient Certification: I certify that the inpatient services were ordered in accordance with Medicare regulations governing the order. This includes certification that hospital inpatient services are reasonable and necessary and in the case of services not specified as inpatient-only under 42 CFR 419.22(n), that they are appropriately provided as inpatient services in accordance to with the 2-midnight benchmark under 43 CFR 412.3(e) Estimated Total Length of Stay (Days): 3 Plans for Post Hospital Care: Not yet determined Review of Systems All other systems reviewed negative except as stated in HPI PMFSH - History History Provided By: Patient - Medical History Medical History: Medical History (Last Reviewed 01/10/18 @ 19:46 by Telma Nguyen RN) Absent parathyroid gland Anemia DVT (deep venous thrombosis) Diverticulitis of colon with perforation End stage renal disease on dialysis History of blood product transfusion Hx of hysterectomy Hypertension Pulmonary embolism Vascular dialysis catheter in place - Surgical History Surgical History: Surgical History (Last Reviewed 01/10/18 @ 12:25 by Oksana Andrews RN) Hx of colostomy Hx of ileostomy - Family History Family History: Family History (Last Reviewed 01/10/18 @ 12:26 by Oksana Andrews RN) Son Kidney disease Daughter Kidney disease - Tobacco History Second Hand Smoke Exposure: No Smoking Status: Never smoker - Alcohol History How Often Do You Have a Drink Containing Alcohol: Never - Substance Use History Substance History: No History of Abuse Medications and Allergies Active Medications: Active Medications Acetaminophen (Tylenol) 650 mg PO Q4H PRN PRN Reason: Temp > 100.4 Acetaminophen (Tylenol) 650 mg PO UNSCH PRN PRN Reason: SEE LABEL COMMENTS Clonidine HCl (Catapres) 0.1 mg PO UNSCH PRN PRN Reason: SEE LABEL COMMENTS Diphenhydramine HCl (Benadryl) 25 mg PO UNSCH PRN PRN Reason: SEE LABEL COMMENTS Epoetin Justice (Epogen Inj) 4,000 unit IV.PUSH UNSCH PRN PRN Reason: SEE LABEL COMMENTS Gelatin (Gelfoam 12 Mm/7 Mm Topical) 1 foam TOPICAL PRN PRN PRN Reason: help stop bleeding from site Gentamicin Sulfate (Gentamicin Inj) 20 mg OTHER WITH DIALYSIS PRN PRN Reason: Dwell Gentamycin Lock Heparin Sodium (Porcine) (Heparin Inj) 8,000 units OTHER WITH DIALYSIS PRN PRN Reason: for machine prime Heparin Sodium (Porcine) (Heparin Inj) 1,000 units OTHER WITH DIALYSIS PRN PRN Reason: Dwell Heparin to Fill Catheter Sodium Chloride (Ns Inj) 1,000 mls @ 0 mls/hr OTHER .Q0M PRN PRN Reason: for prime and rinse back Sodium Chloride (Ns Inj) 1,000 mls @ 200 mls/hr OTHER .Q5H PRN PRN Reason: for dialyzer flush PRN Sodium Chloride (Ns Inj) 1,000 mls @ 0 mls/hr IV.CONT .Q0M PRN PRN Reason: hypotension / volume replace Albumin Human (Flexbumin 25% Inj) 100 mls @ 60 mls/hr IV.SIG WITH DIALYSIS PRN PRN Reason: hypotension / volume replace Dextrose/Sodium Chloride (D5w-1/2 Ns Inj) 500 mls @ 0 mls/hr IV.SIG .Q0M ONE Stop: 01/10/18 20:43 Lactulose (Lactulose Liq) 30 ml PO DAILY PRN PRN Reason: SEVERE CONSITIPATION Mannitol (Mannitol Inj) 12.5 gm IV.PUSH UNSCH PRN PRN Reason: hypotension / volume replace Morphine Sulfate (Morphine Inj) 2 mg IV.PUSH Q4H PRN PRN Reason: PAIN 6-10 Nitroglycerin (Nitrostat Sl) 0.4 mg SL Q5M PRN PRN Reason: CHEST PAIN Ondansetron HCl (Zofran Inj) 4 mg IV.PUSH UNSCH PRN PRN Reason: NAUSEA OR VOMITING Senna/Docusate Sodium (Aidee-Colace) 1 tab PO BID [place] Sodium Chloride (Ns Flush) 5 ml IV.FLUSH PRN PRN PRN Reason: flush each lumen during HD Allergies Allergy/AdvReac Type Severity Reaction Status Date / Time Sulfa (Sulfonamide Allergy Swelling Verified 01/10/18 12:23 Antibiotics) Home Medications Medication Instructions Recorded Confirmed Type apixaban [Eliquis] 5 mg PO BID 01/10/18 01/10/18 History febuxostat [Uloric] 40 mg PO DAILY 01/10/18 01/10/18 History metoprolol tartrate 50 mg PO BID 01/10/18 01/10/18 History ondansetron HCl [Zofran] 8 mg PO TID PRN 01/10/18 01/10/18 History tramadol 50 mg PO Q6H 01/10/18 01/10/18 History Exam Vital signs: Intake & Output 01/10/18 01/10/18 01/11/18 06:59 18:59 06:59 Weight 52.3 kg Other: Weight On Admission 52.3 kg Narrative: PE: GENERAL: Pleasant elderly white female in no acute distress. Mildly of the lethargic but answering questions per HEENT: PERRLA, EOMI. No scleral icterus or conjunctival pallor. No lid lag or facial droop. CARDIOVASCULAR: Regular rate and rhythm. No obvious murmurs to auscultation. No chest tenderness to palpation. RESPIRATORY: No obvious rhonchi or wheezing. Clear to auscultation. Breath sounds equal bilaterally. GASTROINTESTINAL: Abdomen soft, non-tender, nondistended. BS normal. Colostomy w / brown watery stool MUSCULOSKELETAL: Extremities without clubbing, cyanosis, or edema. No obvious deformities. LUE w/ mild erythema/edema NEUROLOGICAL: Awake, alert and oriented x4. No focal neurologic deficits. Moving both upper and lower extremities spontaneously. Caprini VTE Risk Assessment Caprini VTE Risk Assessment: No/Low Risk (score <= 1) Caprini Risk Assessment Model: Point Value = 1 Point Value = 2 Point Value = 3 Point Value = 5 Age 41-60 Minor surgery BMI > 25 kg/m2 Swollen legs Varicose veins or History of unexplained or recurrent spontaneous Oral contraceptives or hormone replacement Sepsis (< 1 month) Serious lung disease, including pneumonia (< 1 month) Abnormal pulmonary function Acute myocardial infarction Congestive heart failure (< 1 month) History of inflammatory bowel disease Medical patient at bed rest Age 61-74 Arthroscopic surgery Major open surgery (> 45 min) Laparoscopic surgery (> 45 min) Malignancy Confined to bed (> 72 hours) Immobilizing plaster cast Central venous access Age >= 75 History of VTE Family history of VTE Factor V Leiden Prothrombin [id number] Lupus anticoagulant Anticardiolipin antibodies Elevated serum homocysteine Heparin-induced thrombocytopenia Other congenital or acquired thrombophilia Stroke (< 1 month) Elective arthroplasty Hip, pelvis, or leg fracture Acute spinal cord injury (< 1 month) Prophylaxis Regimen: Total Risk Factor Score Risk Level Prophylaxis Regimen 0-1 Low Early ambulation 2 Moderate Order ONE of the following: *Sequential Compression Device (SCD) *Heparin 5000 units SQ BID 3-4 Higher Order ONE of the following medications: *Heparin 5000 units SQ TID *Enoxaparin/Lovenox 40 mg SQ daily (WT < 150 kg, CrCl > 30 mL/min) *Enoxaparin/Lovenox 30 mg SQ daily (WT < 150 kg, CrCl > 10-29 mL/min) *Enoxaparin/Lovenox 30 mg SQ BID (WT < 150 kg, CrCl > 30 mL/min) AND/OR *Sequential Compression Device (SCD) 5 or more Highest Order ONE of the following medications: *Heparin 5000 units SQ TID (Preferred with Epidurals) *Enoxaparin/Lovenox 40 mg SQ daily (WT < 150 kg, CrCl > 30 mL/min) *Enoxaparin/Lovenox 30 mg SQ daily (WT < 150 kg, CrCl > 10-29 mL/min) *Enoxaparin/Lovenox 30 mg SQ BID (WT < 150 kg, CrCl > 30 mL/min) AND *Sequential Compression Device (SCD) Assessment and Plan - Assessment (1) AVF (arteriovenous fistula) Code(s): I77.0 - Arteriovenous fistula, acquired Status: Acute (2) ESRD on dialysis Code(s): N18.6 - End stage renal disease; Z99.2 - Dependence on renal dialysis Status: Chronic (3) Hypotension Code(s): I95.9 - Hypotension, unspecified Status: Acute (4) Hypoglycemia Code(s): E16.2 - Hypoglycemia, unspecified Status: Acute (5) Diarrhea Code(s): R19.7 - Diarrhea, unspecified Status: Acute - Plan A/P: 1. LUE Edema: s/p LUE AVG by Dr. Ventura 01/01/18, now w/ worsening erythema/ edema. S/p eval by Dr. Antoine, no planned intervention at this time. Afebrile, no leukocytosis, however concern for possible cellulitis/early sepsis in light of hypotension and episodes of hypoglycemia. Check STAT repeat labs, Lactic Acid, start Vanc/Zosyn, monitor closely. 2. ESRD on HD: T//, s/p eval by Dr. Yanez, will arrange HD as scheduled. Monitor I/O. 3. Hypotension: BP 80's systolic since arrival, currently in ICU, continue close monitoring, IVF bolus, maintenance fluids-caution w/ ESRD but no signs of acute fluid overload. Monitor closely. Consult Intensivists as needed. 4. Hypoglycemia: BS 30-40's during admission, check STAT BMP, Lactic Acid for possible Sepsis, Hypoglycemic Protocol, start maintenance [id number]. 5. Diarrhea: reports ongoing diarrhea x2-3 days, C diff cultures sent, pending , will follow. 6. DVT Prophylaxis: SCD/Teds 7. Social work for d/c planning as needed 8. Case discussed w/ ER physician at length, labs/records/imaging reviewed by me. H&P: Quality - VTE Deep Vein Thrombosis/Pulmonary Embolism Present on Admission: No
--- NOTE | 2018-01-10 21:14 | MB ---
cc: Krysta Snyder MD, Slobodan MD DATE: 01/10/2018 REASON FOR CONSULTATION: Status post AV graft, left upper arm swelling and renal failure. HISTORY OF PRESENT ILLNESS: This 77-year-old female with end-stage renal disease underwent placement of ab axillary artery to axillary vein PTFE graft by Dr. Ventura on 01/01. Patient developed some swelling in the arm and pain in his stomach, so she presents to the emergency room and now is transferred for further care to [facility]. Question arises about the swelling of her upper arm and possible vascular implications. PAST MEDICAL HISTORY: Complex includes end-stage renal disease, previous sigmoid diverticular rupture with a colostomy and a reversal, followed by complications such as diarrhea, hypertension. PAST SURGICAL HISTORY: Colon resection, hysterectomy and above noted AV fistula. SOCIAL HISTORY: The patient does not drink, does not smoke, never did. MEDICATIONS: Multiple and can be found on the chart. PHYSICAL EXAMINATION: GENERAL: Reveals a pleasant 77-year-old lady in no acute distress. HEENT: Normocephalic. No trauma to the head. Pupils are equal, reactive. Extraocular muscles intact. NECK: Bilateral carotid pulses. No bruits. CHEST: Bilateral breath sounds. HEART: Regular rhythm. ABDOMEN: Soft. No rebound, no guarding, no masses. Slightly tender on palpation, but no suspicious areas. PELVIS: Stable. EXTREMITIES: Lower extremities are within normal limits with good proximal and distal pulses. No acute vascular deficit. Upper extremities - the patient on the left side a graft which is axillary to axillary loop. The area is swollen and somewhat red over the graft. I do hear a good Doppler signal in the graft and some thrill at the very connection, so the graft is patent. In addition, the patient has palpable ulnar and radial pulse bilaterally and equal and no signs of steal syndrome. The swelling in the upper arm over the graft is consistent with cellulitis with some redness, but patient does not have a fluctuance or an abscess. This is currently mainly inflammatory in nature. We will observe this carefully and if there is worsening of the symptoms either locally or systemically, the index of suspicion for infection might arise and at that point patient might need surgical exploration and possible drainage of the area. Unfortunately, once the graft is exposed, frequently AV graft has to be sacrificed, so decision to explore as to be made very judiciously and as a last resort option. We will continue to follow the patient see how she does. IMPRESSION AND PLAN: The patient does not have steal syndrome. Based on this, I believe the patient has a very nicely constructed AV graft. We will place some warm compresses to decrease the swelling and place the patient on antibiotics. There is no acute abdominal condition at his time either. I thank much for referral. Critical care time 38 minutes. MD WALT Murphy/ , 08:53 PM , 09:13 PM [email or web address]
[2018-01-10] MEDS ORDERED: Dextrose 50% in Water Syringe 50 ML ONE ×2 (21:17→21:33)
[2018-01-10] MEDS ORDERED: Dextrose 50% in Water 50 ML Vial IV.PUSH PRN (21:27)
[2018-01-10] MEDS: Senna/Docusate Sodium 8.6/50 MG Tablet PO SCH (21:50)
[2018-01-10] MEDS ORDERED: Vancomycin Consult Pharmacy 1 EACH OTHER SCH (22:00)
[2018-01-10 22:16] LABS: Creatine Kinase 29 U/L (26-192)
[2018-01-10 22:26] LABS: Bilirubin,Urine Negative (Negative); Clarity,Urine Clear (Clear); Color,Urine Yellow (Yellw/Straw); Glucose,Urine (UA) 50 mg/dL (Negative); Leukocyte Esterase,Urine Negative (Negative); Nitrite,Urine Negative (Negative); Specific Gravity,Urine 1.012 (1.002-1.035)
[2018-01-10] MEDS: Dextrose 5%/NaCl 0.9% Inj 1,000 ML IV.CONT SCH (22:30)
[2018-01-10] MEDS: Piperacil/Tazo 2.25 GM Premix 50 ML IV.SIG SCH (22:44)
[2018-01-11 00:27] LABS: Calcium 8.5 mg/dL (8.5-10.1); Carbon Dioxide 13.4 meq/L (21.0-32.0); Potassium 4.3 meq/L (3.5-5.1)
[2018-01-11] MEDS: Morphine Inj 4 MG/ML Vial IV.PUSH PRN ×4 (00:32→21:17)
[2018-01-11 01:19] LABS: Hepatitis A IgM Antibody Nonreactive (Nonreactive); Hepatitits B Surface Antigen Nonreactive (Nonreactive)
[2018-01-11] MEDS: Acetaminophen 325 MG Tablet PO PRN ×3 (03:00→23:13)
[2018-01-11] MEDS ORDERED: Sodium Chlor 0.9% Inj 500 ML IV.SIG ONE ×2 (04:45→06:55)
[2018-01-11 04:58] LABS: Alanine Aminotransferase 34 U/L (10-53); Albumin 2.1 g/dL (3.4-5.0); Alkaline Phosphatase 266 U/L (45-117); Anion Gap 12 meq/L (5-15); Aspartate Aminotransferase 55 U/L (15-37); Blood Urea Nitrogen 59 mg/dL (7-18); Calcium 8.6 mg/dL (8.5-10.1); Carbon Dioxide 14.1 meq/L (21.0-32.0); Chloride 107 meq/L (98-107); Glomerular Filtration Rate 5 mL/min (>89); Glucose,Random 106 mg/dL (74-106); Potassium 5.3 meq/L (3.5-5.1); Sodium 133 meq/L (136-145); Total Protein 6.9 g/dL (6.4-8.2)
[2018-01-11] MEDS: Piperacil/Tazo 2.25 GM Premix 50 ML IV.SIG SCH ×4 (05:28→21:30)
--- NOTE | 2018-01-11 07:29 | P.CONCC ---
History of Present Illness Service: critical care Consult date: 01/11/18 Requesting Physician: Linda Alvarez Reason for Consult: Septic shock Primary Care Provider: No Primary Care Physician Family Provider: No Primary Care Physician Chief Complaint: Hypotension sepsis History of Present Illness: This is a 77 year female with a PMH of end-stage renal disease on dialysis( Saturday) HTN, H/o Perforated Diverticulitis s/p Colostomy. She recently had AVG placement by Dr. Ventura on 01/01/18. Patient presented to the [facility] emergency department on 01/10/2018 for left upper extremity swelling and was transferred to [facility] for admission. She also had generalized weakness and diarrhea. (C diff cultures sent in [place] pending). Initially patient was hypotensive and received multiple fluid boluses with improvement in blood pressure has been hypotensive w/ BP 81/45, HR 89, O2 sat 100% on RA, Afebrile. Seen by Dr. Means, no indication for surgical intervention at this time. Patient was placed in the ICU for persistent hypotension, overnight received 1.5L NS boluses again for hypotension. Despite fluid boluses map remained in low 50s indicating persistent worsening septic shock and critical care medicine was consulted. Patient is currently receiving vancomycin and Zosyn renally dosed. I have instructed RN to give 500 mL fluid bolus followed by starting Levophed. Patient had a fever up to 102.7. On my exam left lower surrounding the AV graft incision appears red and warm and swollen. This appears to be the source of infection and I have discussed with Dr. Antoine who will evaluate the patient again. Get ID consult. Continue current antibiotics. Patient also gave a history of pulmonary embolism had been on Coumadin for last 10 years also , recently 2 months ago switched to Eliquis Review of Systems All other systems reviewed negative except as stated in HPI PMFSH - History History Provided By: Patient - Medical History Medical History: Medical History (Last Reviewed 01/10/18 @ 19:46 by Telma Nguyen RN) Absent parathyroid gland Anemia DVT (deep venous thrombosis) Diverticulitis of colon with perforation End stage renal disease on dialysis History of blood product transfusion Hx of hysterectomy Hypertension Pulmonary embolism Vascular dialysis catheter in place - Surgical History Surgical History: Surgical History (Last Reviewed 01/10/18 @ 12:25 by Oksanayony Andrews RN) Hx of colostomy Hx of ileostomy - Family History Family History: Family History (Last Reviewed 01/10/18 @ 12:26 by Oksana Andrews RN) Son Kidney disease Daughter Kidney disease - Tobacco History Second Hand Smoke Exposure: No Smoking Status: Never smoker - Alcohol History How Often Do You Have a Drink Containing Alcohol: Never - Substance Use History Substance History: No History of Abuse Medications and Allergies Active Medications: Active Medications Acetaminophen (Tylenol) 650 mg PO Q4H PRN PRN Reason: Temp > 100.4 Last Admin: 01/11/18 03:00 Dose: 650 mg Acetaminophen (Tylenol) 650 mg PO UNSCH PRN PRN Reason: SEE LABEL COMMENTS Chlorhexidine Gluconate (Chlorhexidine 2% Cloth) 3 pack TOPICAL DAILY@0400 [place] Stop: 01/17/18 03:59 Chlorhexidine Gluconate (Chlorhexidine 2% Cloth) 3 pack TOPICAL DAILY@0400 PRN PRN Reason: Extra cloth needed Stop: 01/17/18 03:59 Clonidine HCl (Catapres) 0.1 mg PO UNSCH PRN PRN Reason: SEE LABEL COMMENTS Dextrose (D50w Vial) 50 ml IV.PUSH UNSCH PRN PRN Reason: PER HYPOGLYCEMIA PROTOCOL Diphenhydramine HCl (Benadryl) 25 mg PO UNSCH PRN PRN Reason: SEE LABEL COMMENTS Epoetin Justice (Epogen Inj) 4,000 unit IV.PUSH UNSCH PRN PRN Reason: SEE LABEL COMMENTS Gelatin (Gelfoam 12 Mm/7 Mm Topical) 1 foam TOPICAL PRN PRN PRN Reason: help stop bleeding from site Gentamicin Sulfate (Gentamicin Inj) 20 mg OTHER WITH DIALYSIS PRN PRN Reason: Dwell Gentamycin Lock Glucagon (Glucagon Inj) 1 mg OTHER PRN PRN PRN Reason: for Hypoglycemia Protocol Heparin Sodium (Porcine) (Heparin Inj) 8,000 units OTHER WITH DIALYSIS PRN PRN Reason: for machine prime Heparin Sodium (Porcine) (Heparin Inj) 1,000 units OTHER WITH DIALYSIS PRN PRN Reason: Dwell Heparin to Fill Catheter Sodium Chloride (Ns Inj) 1,000 mls @ 0 mls/hr OTHER .Q0M PRN PRN Reason: for prime and rinse back Sodium Chloride (Ns Inj) 1,000 mls @ 200 mls/hr OTHER .Q5H PRN PRN Reason: for dialyzer flush PRN Sodium Chloride (Ns Inj) 1,000 mls @ 0 mls/hr IV.CONT .Q0M PRN PRN Reason: hypotension / volume replace Albumin Human (Flexbumin 25% Inj) 100 mls @ 60 mls/hr IV.SIG WITH DIALYSIS PRN PRN Reason: hypotension / volume replace Dextrose/Sodium Chloride (D5w/Normal Saline Inj) 1,000 mls @ 42 mls/hr IV.CONT .[id number] [facility] Last Admin: 01/10/18 22:30 Dose: 42 mls/hr Pharmacy Profile Note (Vancomycin Consult Pharmacy) 0 mls @ 0 mls/hr OTHER UNSCH [facility] Piperacillin/Tazobactam/Dextrose (Zosyn 2.25 Gm Premix) 50 mls @ 100 mls/hr IV.SIG Q6H [facility] Last Infusion: 01/11/18 05:58 Dose: Infused Lactulose (Lactulose Liq) 30 ml PO DAILY PRN PRN Reason: SEVERE CONSITIPATION Mannitol (Mannitol Inj) 12.5 gm IV.PUSH UNSCH PRN PRN Reason: hypotension / volume replace Morphine Sulfate (Morphine Inj) 2 mg IV.PUSH Q4H PRN PRN Reason: PAIN 6-10 Last Admin: 01/11/18 00:32 Dose: 2 mg Mupirocin (Bactroban 2% Nasal Oint) 1 applicatio NASAL BID [facility] Stop: 01/15/18 21:01 Nitroglycerin (Nitrostat Sl) 0.4 mg SL Q5M PRN PRN Reason: CHEST PAIN Ondansetron HCl (Zofran Inj) 4 mg IV.PUSH UNSCH PRN PRN Reason: NAUSEA OR VOMITING Senna/Docusate Sodium (Aidee-Colace) 1 tab PO BID [facility] Last Admin: 01/10/18 21:50 Dose: Not Given Sodium Chloride (Ns Flush) 5 ml IV.FLUSH PRN PRN PRN Reason: flush each lumen during HD Allergies Allergy/AdvReac Type Severity Reaction Status Date / Time Sulfa (Sulfonamide Allergy Swelling Verified 01/10/18 12:23 Antibiotics) Home Medications Medication Instructions Recorded Confirmed Type apixaban [Eliquis] 5 mg PO BID 01/10/18 01/11/18 History febuxostat [Uloric] 40 mg PO DAILY 01/10/18 01/11/18 History metoprolol tartrate 50 mg PO BID 01/10/18 01/11/18 History ondansetron HCl [Zofran] 8 mg PO TID PRN 01/10/18 01/11/18 History tramadol 50 mg PO Q6H 01/10/18 01/11/18 History Physical Exam Vital signs: Vital Signs 01/10/18 20:00 01/11/18 00:00 01/11/18 04:00 Temperature 99.9 F H 98.6 F 102.9 F H Pulse Rate 98 H 90 120 H Respiratory Rate 24 20 26 H Blood Pressure 89/47 L 128/59 L 78/39 L Pulse Oximetry 96 100 100 Intake & Output 01/10/18 01/11/18 01/11/18 18:59 06:59 18:59 Intake Total 1920 / 1920 Output Total 850 / 850 Balance 1070 / 1070 Weight 59.9 kg Intake: IV 1200 / 1200 D50W Syringe 50 ML @ 0 mls/hr . 100 / 100 ROUTE .STK-MED ONE Rx#:[id number] D5W-1/2 NS Inj 500 ML @ Wide 500 / 500 Open IV.SIG .Q0M ONE Rx#: [id number] Zosyn 2.25 GM Premix 50 ML @ 100 / 100 100 mls/hr IV.SIG Q6H [place] Rx#: [id number] NS Inj 500 ML @ Wide Open IV. 500 / 500 SIG BOLUS ONE Rx#:[id number] Oral 720 / 720 Output: Urine Amount (Catheter) 350 / 350 Indwelling Urethral Catheter 350 / 350 Stool Amount (Stoma) 500 / 500 Right Lower Abdomen 500 / 500 Other: Date of Last Bowel Movement 01/10/18 Weight On Admission 52.3 kg Narrative: PE: GENERAL: Pleasant elderly white female critically ill hypotensive, appears septic HEENT: PERRLA, EOMI. No scleral icterus or conjunctival pallor. No lid lag or facial droop. CARDIOVASCULAR: Regular rate and rhythm. No chest tenderness to palpation. RESPIRATORY: No obvious rhonchi or wheezing. Clear to auscultation. Breath sounds equal bilaterally. GASTROINTESTINAL: Abdomen soft, non-tender, nondistended. BS normal. Colostomy present MUSCULOSKELETAL: Left arm surrounding AV graft incisions, tender, swollen and erythematous. Unable to express any pus NEUROLOGICAL: Awake, alert and oriented x4. No focal neurologic deficits. Follows commands 4 - Urinary Catheter Management Indwelling Urethral Catheter Cath placed during this visit: yes Reason for continuing: Hourly intake/output Insertion date: 01/10/18 Insertion time: 20:00 Septic Shock Reassessment Septic shock perfusion: reassessment completed Assessment and Plan - Assessment and Plan Plan: System based assessment and plan: NEURO: -Minimize sedation -Mild lethargy most likely secondary to severe sepsis RESP: History of DVT/pulmonary embolism -Currently Eliquis is placed on hold in anticipation of invasive procedures -Her pulmonary embolism and DVT was postoperative and was about 10 years ago -DuoNeb every 6 hours scheduled and as needed -Aggressive pulmonary toilet CV: Septic shock Lactic acidosis -Normal saline IV fluids 2L bolus -Levophed to keep map above 65 -Hold home antihypertensives (on metoprolol 50 mg twice daily at home) -Trend lactic acid GI: History of colostomy -N.p.o., IV famotidine -Colostomy care : ESRD -Patient has end-stage renal disease and is on Saturday, , Saturday schedule for dialysis -Nephrology Dr. 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 Antoine following for vascular, patient may need surgical debridement -F/U Blood cultures, C Diff -RUE venous US ordered HEME: Chronic apixaban use -Monitor CBC, coags -Holding apixaban ENDO: -Electrolyte replacement per protocol PROPH: -Bilateral lower extremity SCDs. Famotidine. Avoid chemical DVT prophylaxis, hold apixaban for possible surgical intervention LINES: -Utilize peripheral IVs, right IJ central line placed today 01/11/2018 CC time 45 min Ms. Hare is a 77-year-old lady with end-stage roommate recently placed AV graft with severe septic shock probably from graft infection. Requiring pressors, may need surgical intervention. Code Status: Full Discussed Condition With: Dr. Snyder, Dr. Alvarez
--- NOTE | 2018-01-11 08:11 | P.PCN ---
Date of procedure: 01/11/18 Pre-op diagnosis: septic shock Post-op diagnosis: same Procedure: Procedure ultrasound-guided right subclavian central line placement Indication septic shock Central line checklist completed, time out completed. I wore a surgical cap, mask with protective eyewear, full gown and sterile gloves throughout the procedure. Right shoulder and neck region was prepped using chlorhexidine scrub and draped in sterile fashion. The right subclavian vein was identified using the ultrasound. Anesthesia was achieved over the vein using 1% lidocaine. The introducer needle was inserted into the right subclavian vein under direct ultrasound visualization. Venous blood was withdrawn. The syringe was removed and a guidewire was advanced into the introducer needle. A small incision was made at the skin surface with a scalpel and the introducer needle was exchanged for a dilator over the guidewire. After appropriate dilation was obtained, the dilator was exchanged over the wire for a triple lumen, 7F, antibiotic coated central venous catheter. The wire was removed and the catheter was sutured in place at 17 cm. A sterile central line dressing was placed over the catheter at the insertion site. The patient tolerated the procedure without any hemodynamic compromise. At time of procedure completion, all ports aspirated and flushed properly. Post-procedure chest x-ray is pending at this time. Anesthesia: regional Surgeon: Darion Trinidad Estimated blood loss (mL): 1 Pathology: none sent Condition: critical Disposition: ICU
--- NOTE | 2018-01-11 08:37 | XR ---
EXAM DATE: 01/11/2018 8:32 AM EDT AGE/SEX: 77 years / Female INDICATIONS: Central line placement, right side. CLINICAL DATA: This is the patient's subsequent encounter. Patient reports that signs and symptoms h ave been present for 1 day and indicates a pain score of 0/10. MEDICAL/SURGICAL HISTORY: Hypertension. . Vascular dialysis cath. COMPARISON: [facility], CHEST 1V SINGLE AP, 01/10/2018. . FINDINGS: A single AP view of the chest demonstrates the lungs to be symmetrically aerated without evidence of mass, infiltrate or effusion. The cardiomediastinal contours are unremarkable. Osseous structures a re intact. Left-sided vascular catheter unchanged. Right subclavian central line with tip in the rig ht atrium. No pneumothorax CONCLUSION: Adequate placement of right subclavian central line. Electronically signed by: Abhinav Christian MD 01/11/2018 8:36 AM EDT
[2018-01-11] MEDS: Heparin 10,000 UNITS/10 ML Vial (for IV use) OTHER PRN (09:05)
[2018-01-11 09:18] LABS: Baso % (Auto) 0.1 % (0.0-2.0); Eos # (Auto) 0.2 th/mm3 (0.0-0.4); Eos % (Auto) 1.1 % (0.0-4.0); Hematocrit 29.8 % (35.0-46.0); Hemoglobin 9.7 gm/dL (11.6-15.3); Lymph # (Auto) 0.2 th/mm3 (1.0-4.8); Lymph % (Auto) 1.5 % (9.0-44.0); Mean Corpuscular HGB Conc 32.5 % (32.0-36.0); Mean Corpuscular Hemoglobin 33.1 pg (27.0-34.0); Mean Corpuscular Volume 101.9 fL (80.0-100.0); Mono # (Auto) 0.6 th/mm3 (0.0-0.9); Mono % (Auto) 3.5 % (0.0-8.0); Neut # (Auto) 14.9 th/mm3 (1.8-7.7); Neut % (Auto) 93.8 % (16.0-70.0); Platelet Count 76 th/mm3 (150-450); Red Blood Count 2.92 mil/mm3 (4.00-5.30); Red Cell Distribution Width 18.9 % (11.6-17.2); White Blood Count 15.8 th/mm3 (4.0-11.0)
[2018-01-11 09:43] LABS: Troponin I 0.05 ng/mL (0.02-0.05)
[2018-01-11] MEDS: Senna/Docusate Sodium 8.6/50 MG Tablet PO SCH ×2 (10:10→21:33)
[2018-01-11] MEDS: Famotidine PF Inj 20 MG/2 ML Vial IV.PUSH SCH ×2 (10:10→20:58)
[2018-01-11] MEDS: Mupirocin 2% Nasal Oint Topical Syringe NASAL SCH ×2 (10:10→20:58)
--- NOTE | 2018-01-11 10:23 | US ---
EXAM DATE: 01/11/2018 10:19 AM EDT AGE/SEX: 77 years / Female INDICATIONS: Right upper extremity pain and swelling. CLINICAL DATA: This is the patient's initial encounter. Patient reports that signs and symptoms have been present for 3 days and indicates a pain score of 6/10. MEDICAL/SURGICAL HISTORY: . Hypertension. End-stage renal disease on hemodialysis. Anemia. Di verticulitis of colon with perforation. Pulmonary embolism. Absent parathyroid gland. . Hysterecto my. Colostomy. Ileostomy. AVG fistula 01/01/2018. COMPARISON: No prior exams available for comparison. FINDINGS: Exam somewhat limited. Cephalic and basilic veins are not seen. No deep venous thrombosis in the left radial, ulnar, brachial, axillary and clavian veins. Left IJ is patent. No deep venous th rombosis seen within the AV fistula which appears widely patent. There is an area of mixed echogenici ty in the left axilla likely old hematoma Other: None. CONCLUSION: 1. No deep venous thrombosis in the visualized veins. 2. AV fistula is patent. Electronically signed by: Abhinav Christian MD 01/11/2018 10:22 AM EDT
[2018-01-11 11:02] LABS: Eosinophils 2 % (0-4); Monocytes 5 % (0-8); Platelet Morphology Normal (Normal)
--- NOTE | 2018-01-11 11:34 | P.PNNP ---
Subjective Interval history: Patient is having fever, abdominal pain, nausea left upper extremity is less swollen ultrasound showed good flow Physical Exam Vital signs: Vital Signs 01/10/18 20:00 01/11/18 00:00 01/11/18 04:00 Temperature 99.9 F H 98.6 F 102.9 F H Pulse Rate 98 H 90 120 H Respiratory Rate 24 20 26 H Blood Pressure 89/47 L 128/59 L 78/39 L Pulse Oximetry 96 100 100 01/11/18 09:26 Temperature Pulse Rate Respiratory Rate Blood Pressure Pulse Oximetry 100 Intake & Output 01/10/18 01/11/18 01/11/18 18:59 06:59 18:59 Intake Total 1920 / 1920 100 / 100 Output Total 850 / 850 1500 / 1500 Balance 1070 / 1070 -1400 / -1400 Weight 59.9 kg Intake: IV 1200 / 1200 100 / 100 D50W Syringe 50 ML @ 0 mls/hr . 100 / 100 ROUTE .STK-MED ONE Rx#:[id number] Flexbumin 25% Inj 100 ML @ 60 100 / 100 mls/hr IV.SIG WITH DIALYSIS PRN Rx#:[id number] D5W-1/2 NS Inj 500 ML @ Wide 500 / 500 Open IV.SIG .Q0M ONE Rx#: [id number] Zosyn 2.25 GM Premix 50 ML @ 100 / 100 100 mls/hr IV.SIG Q6H [place] Rx#: [id number] NS Inj 500 ML @ Wide Open IV. 500 / 500 SIG BOLUS ONE Rx#:[id number] Oral 720 / 720 Output: Hemodialysis Amount 1500 / 1500 Urine Amount (Catheter) 350 / 350 Indwelling Urethral Catheter 350 / 350 Stool Amount (Stoma) 500 / 500 Right Lower Abdomen 500 / 500 Other: Date of Last Bowel Movement 01/10/18 Weight On Admission 52.3 kg - Constitutional severe distress - Routine HEENT Exam Head: Present: normocephalic (Painful) Eye: Present: EOMI - Routine Neck Exam Present: supple - Routine Respiratory Exam Present: CTA bilaterally - Routine Cardiovascular Exam Present: tachycardia - Routine Abdominal Exam Present: tenderness (Ileostomy) - Routine Extremities Exam Present: edema - Routine Neurological Exam Present: alert - Urinary Catheter Management Indwelling Urethral Catheter Cath placed during this visit: yes Reason for continuing: Hourly intake/output Insertion date: 01/10/18 Insertion time: 20:00 Assessment and Plan - Assessment (1) ESRD on dialysis Code(s): N18.6 - End stage renal disease; Z99.2 - Dependence on renal dialysis Status: Chronic Plan: Patient experiencing a lot of pain and has fever and chills as well Etiology of sepsis unclear possibility of AV graft infection however the swelling is down in [place] is good Other possibility is abdominal pain possible intestinal blockage she has output and ileostomy, we can get a CT scan Discussed with Dr. Trinidad Seen during hemodialysis 1 L UF as tolerated (2) Hypertension Code(s): I10 - Essential (primary) hypertension Status: Acute Qualifiers: Hypertension type: essential hypertension Qualified Code(s): I10 - Essential (primary) hypertension (3) Sepsis Code(s): A41.9 - Sepsis, unspecified organism Status: Acute Plan: Patient is covered on antibiotics C. difficile was negative CT scan of the abdomen will be ordered Left arm AV graft Doppler ultrasound done good flow Repeat cultures as needed Vancomycin, Zosyn, metronidazole
--- NOTE | 2018-01-11 12:02 | P.PNCC ---
Subjective 24 Hour Review/Hospital Course: 01/11/2018 The AV graft site in the left upper arm is much less swollen today and the redness is decreased It still appears to be somewhat firm but much improved Have discussed this with Dr. Trinidad and the given the fact that once this is opened up the chances are we will not be able to save the AV graft Unless patient worsens clinically I would certainly avoid doing exploration of the graft and drainage for at that time probably graft was have to be sacrificed Considering that conservative management is working well I would just stick with it for the time being In addition patient has some abdominal pain which is being worked up but patients with renal failure end-stage renal disease do sometimes have abdominal pain which is not quite explainable and frequently elusive Abdomen is soft no rebound no guarding or masses are noted We will continue to follow and if necessary we will explore the graft but I believe this should be a last resort option Objective Vital Signs / I&O: Vital Signs 01/10/18 20:00 01/11/18 00:00 01/11/18 04:00 Temperature 99.9 F H 98.6 F 102.9 F H Pulse Rate 98 H 90 120 H Respiratory Rate 24 20 26 H Blood Pressure 89/47 L 128/59 L 78/39 L Pulse Oximetry 96 100 100 01/11/18 09:26 Temperature Pulse Rate Respiratory Rate Blood Pressure Pulse Oximetry 100 Intake & Output 01/10/18 01/11/18 01/11/18 18:59 06:59 18:59 Intake Total 1920 / 1920 100 / 100 Output Total 850 / 850 1500 / 1500 Balance 1070 / 1070 -1400 / -1400 Weight 59.9 kg Intake: IV 1200 / 1200 100 / 100 D50W Syringe 50 ML @ 0 mls/hr . 100 / 100 ROUTE .STK-MED ONE Rx#:[id number] Flexbumin 25% Inj 100 ML @ 60 100 / 100 mls/hr IV.SIG WITH DIALYSIS PRN Rx#:[id number] D5W-1/2 NS Inj 500 ML @ Wide 500 / 500 Open IV.SIG .Q0M ONE Rx#: [id number] Zosyn 2.25 GM Premix 50 ML @ 100 / 100 100 mls/hr IV.SIG Q6H [place] Rx#: [id number] NS Inj 500 ML @ Wide Open IV. 500 / 500 SIG BOLUS ONE Rx#:[id number] Oral 720 / 720 Output: Hemodialysis Amount 1500 / 1500 Urine Amount (Catheter) 350 / 350 Indwelling Urethral Catheter 350 / 350 Stool Amount (Stoma) 500 / 500 Right Lower Abdomen 500 / 500 Other: Date of Last Bowel Movement 01/10/18 Weight On Admission 52.3 kg Result Diagrams: 01/11/18 08:43 01/11/18 04:15 Imaging: Impressions Venous Doppler Study 01/11/18 07:38 CONCLUSION: 1. No deep venous thrombosis in the visualized veins. 2. AV fistula is patent. Chest X-Ray 01/11/18 08:06 CONCLUSION: Adequate placement of right subclavian central line. Disinhibition Score: 14.00 Aggression Score: 14.00 Lability Score: 14.00 Agitated Behavior Total Score: 14
--- NOTE | 2018-01-11 13:18 | P.CONID ---
History of Present Illness Service: ID Requesting Physician: Darion Trinidad Reason for Consult: sepsis Primary Care Provider: No Primary Care Physician Family Provider: No Primary Care Physician Chief Complaint: Hypotension sepsis History of Present Illness: 77 yo female with ESRD/HD, still makes urine sp LUE AV fistula placement on presetnd yday to [facility] with c/o nausea, vomiting diaartrhea x few days she also has LUE pain, swelling and redness On presentation hypotensive, febrile up to 102.9 WBC 15.8 W/u showed negative CXR, negative blood clx x2 @ 1day negative UA C.diff test is negative and stool is negative for enteric pathogenes Review of Systems All other systems reviewed negative except as stated in HPI PMFSH - History History Provided By: Patient - Medical History Medical History: Medical History (Last Reviewed 03/06/18 @ 14:03 by Linda Harper MD) Absent parathyroid gland Anemia DVT (deep venous thrombosis) Diverticulitis of colon with perforation End stage renal disease on dialysis History of blood product transfusion Hx of hysterectomy Hypertension Pulmonary embolism Vascular dialysis catheter in place - Surgical History Surgical History: Surgical History (Last Reviewed 03/06/18 @ 14:03 by Linda Harper MD) Hx of colostomy Hx of ileostomy - Family History Family History: Family History (Last Reviewed 03/06/18 @ 14:03 by Linda Harper MD) Son Kidney disease Daughter Kidney disease - Social History I have reviewed the patient's Social History: Yes - Tobacco History Second Hand Smoke Exposure: No Smoking Status: Never smoker - Alcohol History How Often Do You Have a Drink Containing Alcohol: Never - Substance Use History Substance History: No History of Abuse Medications and Allergies Active Medications: Active Medications Acetaminophen (Tylenol) 650 mg PO Q4H PRN PRN Reason: Temp > 100.4 Last Admin: 01/11/18 03:00 Dose: 650 mg Acetaminophen (Tylenol) 650 mg PO UNSCH PRN PRN Reason: SEE LABEL COMMENTS Chlorhexidine Gluconate (Chlorhexidine 2% Cloth) 3 pack TOPICAL DAILY@0400 [place] Stop: 01/17/18 03:59 Chlorhexidine Gluconate (Chlorhexidine 2% Cloth) 3 pack TOPICAL DAILY@0400 PRN PRN Reason: Extra cloth needed Stop: 01/17/18 03:59 Clonidine HCl (Catapres) 0.1 mg PO UNSCH PRN PRN Reason: SEE LABEL COMMENTS Dextrose (D50w Vial) 50 ml IV.PUSH UNSCH PRN PRN Reason: PER HYPOGLYCEMIA PROTOCOL Diphenhydramine HCl (Benadryl) 25 mg PO UNSCH PRN PRN Reason: SEE LABEL COMMENTS Epoetin Justice (Epogen Inj) 4,000 unit IV.PUSH UNSCH PRN PRN Reason: SEE LABEL COMMENTS Last Admin: 01/11/18 09:05 Dose: 4,000 unit Famotidine (Pepcid Pf Inj) 10 mg IV.PUSH Q12HR [place] Last Admin: 01/11/18 10:10 Dose: 10 mg Gelatin (Gelfoam 12 Mm/7 Mm Topical) 1 foam TOPICAL PRN PRN PRN Reason: help stop bleeding from site Gentamicin Sulfate (Gentamicin Inj) 20 mg OTHER WITH DIALYSIS PRN PRN Reason: Dwell Gentamycin Lock Last Admin: 01/11/18 09:06 Dose: 20 mg Glucagon (Glucagon Inj) 1 mg OTHER PRN PRN PRN Reason: for Hypoglycemia Protocol Heparin Sodium (Porcine) (Heparin Inj) 8,000 units OTHER WITH DIALYSIS PRN PRN Reason: for machine prime Heparin Sodium (Porcine) (Heparin Inj) 1,000 units OTHER WITH DIALYSIS PRN PRN Reason: Dwell Heparin to Fill Catheter Last Admin: 01/11/18 09:05 Dose: 1,000 units Sodium Chloride (Ns Inj) 1,000 mls @ 0 mls/hr OTHER .Q0M PRN PRN Reason: for prime and rinse back Sodium Chloride (Ns Inj) 1,000 mls @ 200 mls/hr OTHER .Q5H PRN PRN Reason: for dialyzer flush PRN Sodium Chloride (Ns Inj) 1,000 mls @ 0 mls/hr IV.CONT .Q0M PRN PRN Reason: hypotension / volume replace Albumin Human (Flexbumin 25% Inj) 100 mls @ 60 mls/hr IV.SIG WITH DIALYSIS PRN PRN Reason: hypotension / volume replace Last Infusion: 01/11/18 10:29 Dose: Infused Dextrose/Sodium Chloride (D5w/Normal Saline Inj) 1,000 mls @ 42 mls/hr IV.CONT .[id number] [place] Last Admin: 01/10/18 22:30 Dose: 42 mls/hr Piperacillin/Tazobactam/Dextrose (Zosyn 2.25 Gm Premix) 50 mls @ 100 mls/hr IV.SIG Q6H [facility] Last Admin: 01/11/18 10:15 Dose: 100 mls/hr Norepinephrine Bitartrate 4 mg (/ Sodium Chloride) 250 mls @ 7.5 mls/hr IV.SIG TITRATE PRN; Protocol PRN Reason: Per Protocol Vancomycin HCl 1,250 mg/ (Sodium Chloride) 262.5 mls @ 250 mls/hr IV.SIG ONCE ONE Stop: 01/11/18 16:02 Metronidazole/Sodium Chloride (Flagyl 500 Mg Inj) 100 mls @ 100 mls/hr IV.SIG Q8H [place] Vancomycin HCl 1,000 mg/ (Sodium Chloride) 250 mls @ 250 mls/hr IV.SIG WITH DIALYSIS [facility] Lactulose (Lactulose Liq) 30 ml PO DAILY PRN PRN Reason: SEVERE CONSITIPATION Mannitol (Mannitol Inj) 12.5 gm IV.PUSH UNSCH PRN PRN Reason: hypotension / volume replace Morphine Sulfate (Morphine Inj) 2 mg IV.PUSH Q4H PRN PRN Reason: PAIN 6-10 Last Admin: 01/11/18 10:14 Dose: 2 mg Mupirocin (Bactroban 2% Nasal Oint) 1 applicatio NASAL BID [facility] Stop: 01/15/18 21:01 Last Admin: 01/11/18 10:10 Dose: 1 applicatio Nitroglycerin (Nitrostat Sl) 0.4 mg SL Q5M PRN PRN Reason: CHEST PAIN Ondansetron HCl (Zofran Inj) 4 mg IV.PUSH UNSCH PRN PRN Reason: NAUSEA OR VOMITING Senna/Docusate Sodium (Aidee-Colace) 1 tab PO BID [facility] Last Admin: 01/11/18 10:10 Dose: Not Given Sodium Chloride (Ns Flush) 5 ml IV.FLUSH PRN PRN PRN Reason: flush each lumen during HD Terbutaline Sulfate (Brethine Inj) 1 mg SQ UNSCH PRN PRN Reason: For Extravasation Allergies Allergy/AdvReac Type Severity Reaction Status Date / Time Sulfa (Sulfonamide Allergy Swelling Verified 02/05/18 05:53 Antibiotics) Home Medications Medication Instructions Recorded Confirmed Type ondansetron HCl [Zofran] 8 mg PO TID PRN 01/10/18 02/12/18 History tramadol 50 mg PO Q6H 01/10/18 02/12/18 History metoprolol succinate 50 mg PO DAILY 02/05/18 02/12/18 History loperamide [Imodium A-D] 2 mg PO BID 02/08/18 02/12/18 History Exam Vital signs: Vital Signs 01/10/18 20:00 01/11/18 00:00 01/11/18 04:00 Temperature 99.9 F H 98.6 F 102.9 F H Pulse Rate 98 H 90 120 H Respiratory Rate 24 20 26 H Blood Pressure 89/47 L 128/59 L 78/39 L Pulse Oximetry 96 100 100 01/11/18 09:26 Temperature Pulse Rate Respiratory Rate Blood Pressure Pulse Oximetry 100 Intake & Output 01/10/18 01/11/18 01/11/18 18:59 06:59 18:59 Intake Total 1920 / 1920 100 / 100 Output Total 850 / 850 1500 / 1500 Balance 1070 / 1070 -1400 / -1400 Weight 59.9 kg Intake: IV 1200 / 1200 100 / 100 D50W Syringe 50 ML @ 0 mls/hr . 100 / 100 ROUTE .STK-MED ONE Rx#:[id number] Flexbumin 25% Inj 100 ML @ 60 100 / 100 mls/hr IV.SIG WITH DIALYSIS PRN Rx#:[id number] D5W-1/2 NS Inj 500 ML @ Wide 500 / 500 Open IV.SIG .Q0M ONE Rx#: [id number] Zosyn 2.25 GM Premix 50 ML @ 100 / 100 100 mls/hr IV.SIG Q6H [place] Rx#: [id number] NS Inj 500 ML @ Wide Open IV. 500 / 500 SIG BOLUS ONE Rx#:[id number] Oral 720 / 720 Output: Hemodialysis Amount 1500 / 1500 Urine Amount (Catheter) 350 / 350 Indwelling Urethral Catheter 350 / 350 Stool Amount (Stoma) 500 / 500 Right Lower Abdomen 500 / 500 Other: Date of Last Bowel Movement 01/10/18 Weight On Admission 52.3 kg - Constitutional no acute distress, average body habitus - Routine HEENT Exam Head: Present: normocephalic, atraumatic Eye: Present: EOMI, PERRL ENT: Present: mucous membranes moist Comments: por dentition - Routine Neck Exam Present: supple, full ROM - Routine Respiratory Exam Present: decreased breath sounds, CTA bilaterally - Routine Cardiovascular Exam Present: RRR, murmur (holosystolic, harsh 3/6) - Routine Abdominal Exam Present: soft, normoactive bowel sounds, tenderness (mild), distended (mild), surgical scars Comments: ileoostomy in place with dark green watery stool, stoma is pink; no hepatosplenomegaly or mass - Routine Extremities Exam Comments: no cyanosis, no clubbibg STATUS LOCALILS: Marked swelling of the L upper arm with erythema , tender to palpation. no crepitus no fluctuance incisions are w/o drainage - Routine Skin Exam Present: intact, warm Comments: no rash, warm to touch - Routine Neurological Exam Present: alert, oriented X3, CN II-XII intact, moving all extremities, normal speech - Routine Psychiatric Exam Present: normal affect, normal thought process Results - Labs CBC & Chem 7: 01/22/18 04:38 01/23/18 14:10 Labs: Laboratory Results - last 24 hr 01/10/18 01/10/18 01/10/18 20:34 20:45 20:45 WBC RBC Hgb Hct MCV MCH MCHC RDW Plt Count MPV Prelim Diff (Auto) Neut % (Auto) Lymph % (Auto) [place] % (Auto) Eos % (Auto) Baso % (Auto) Neut # (Auto) Lymph # (Auto) [place] # (Auto) Eos # (Auto) Baso # (Auto) WBC Differential Seg Neuts % (Manual) Band Neuts % (Manual) Monocytes % (Manual) Eosinophils % (Manual) Abs Neuts (Manual) Differential Comment Platelet Estimate Platelet Morphology Sodium Potassium Chloride Carbon Dioxide Anion Gap BUN Creatinine Estimated GFR POC Glucose Random Glucose Lactic Acid Calcium Total Bilirubin AST ALT Alkaline Phosphatase Total Creatine Kinase 29 Troponin I Less than 0.02 L Total Protein Albumin Urine Color Yellow Urine Clarity Clear Urine pH 8.0 Ur Specific [place] 1.012 Urine Protein 100 H Urine Glucose (UA) 50 Urine Ketones Negative Urine Occult Blood Negative Urine Nitrate Negative Urine Bilirubin Negative Urine Urobilinogen Less than 2 Ur Leukocyte Esterase Negative Urine RBC 1 Urine WBC 1 Nasal Screen MRSA (PCR) Mrsa detected Hepatitis A IgM Ab Hep Bs Antigen Hep B Core IgM Ab Hep C IgG Ab 01/10/18 01/10/18 01/10/18 21:15 21:32 22:12 WBC RBC Hgb Hct MCV MCH MCHC RDW Plt Count MPV Prelim Diff (Auto) Neut % (Auto) Lymph % (Auto) [place] % (Auto) Eos % (Auto) Baso % (Auto) Neut # (Auto) Lymph # (Auto) [place] # (Auto) Eos # (Auto) Baso # (Auto) WBC Differential Seg Neuts % (Manual) Band Neuts % (Manual) Monocytes % (Manual) Eosinophils % (Manual) Abs Neuts (Manual) Differential Comment Platelet Estimate Platelet Morphology Sodium Potassium Chloride Carbon Dioxide Anion Gap BUN Creatinine Estimated GFR POC Glucose 31 L* 24 L* 206 H Random Glucose Lactic Acid Calcium Total Bilirubin AST ALT Alkaline Phosphatase Total Creatine Kinase Troponin I Total Protein Albumin Urine Color Urine Clarity Urine pH Ur Specific [place] Urine Protein Urine Glucose (UA) Urine Ketones Urine Occult Blood Urine Nitrate Urine Bilirubin Urine Urobilinogen Ur Leukocyte Esterase Urine RBC Urine WBC Nasal Screen MRSA (PCR) Hepatitis A IgM Ab Hep Bs Antigen Hep B Core IgM Ab Hep C IgG Ab 01/10/18 01/10/18 01/10/18 23:31 23:31 23:31 WBC RBC Hgb Hct MCV MCH MCHC RDW Plt Count MPV Prelim Diff (Auto) Neut % (Auto) Lymph % (Auto) [place] % (Auto) Eos % (Auto) Baso % (Auto) Neut # (Auto) Lymph # (Auto) [place] # (Auto) Eos # (Auto) Baso # (Auto) WBC Differential Seg Neuts % (Manual) Band Neuts % (Manual) Monocytes % (Manual) Eosinophils % (Manual) Abs Neuts (Manual) Differential Comment Platelet Estimate Platelet Morphology Sodium 133 L Potassium 4.3 D Chloride 107 Carbon Dioxide 13.4 L Anion Gap 13 BUN 58 H Creatinine 7.40 H Estimated GFR 5 L POC Glucose Random Glucose 196 H D Lactic Acid 2.4 H Calcium 8.5 Total Bilirubin AST ALT Alkaline Phosphatase Total Creatine Kinase Troponin I Total Protein Albumin Urine Color Urine Clarity Urine pH Ur Specific [place] Urine Protein Urine Glucose (UA) Urine Ketones Urine Occult Blood Urine Nitrate Urine Bilirubin Urine Urobilinogen Ur Leukocyte Esterase Urine RBC Urine WBC Nasal Screen MRSA (PCR) Hepatitis A IgM Ab Nonreactive Hep Bs Antigen Nonreactive Hep B Core IgM Ab Nonreactive Hep C IgG Ab Nonreactive 01/11/18 01/11/18 01/11/18 04:15 08:43 08:43 WBC 15.8 H D RBC 2.92 L Hgb 9.7 L Hct 29.8 L MCV 101.9 H MCH 33.1 MCHC 32.5 RDW 18.9 H Plt Count 76 L D MPV 8.0 Prelim Diff (Auto) Slide review pending Neut % (Auto) 93.8 H Lymph % (Auto) 1.5 L [place] % (Auto) 3.5 Eos % (Auto) 1.1 Baso % (Auto) 0.1 Neut # (Auto) 14.9 H Lymph # (Auto) 0.2 L [place] # (Auto) 0.6 Eos # (Auto) 0.2 Baso # (Auto) 0.0 WBC Differential Manual diff final Seg Neuts % (Manual) 61 Band Neuts % (Manual) 32 H Monocytes % (Manual) 5 Eosinophils % (Manual) 2 Abs Neuts (Manual) 14.7 H Differential Comment . Platelet Estimate Low L Platelet Morphology Normal Sodium 133 L Potassium 5.3 H D Chloride 107 Carbon Dioxide 14.1 L Anion Gap 12 BUN 59 H Creatinine 7.54 H Estimated GFR 5 L POC Glucose Random Glucose 106 Lactic Acid Calcium 8.6 Total Bilirubin 1.1 H AST 55 H ALT 34 Alkaline Phosphatase 266 H Total Creatine Kinase 30 Troponin I 0.05 Total Protein 6.9 D Albumin 2.1 L Urine Color Urine Clarity Urine pH Ur Specific [place] Urine Protein Urine Glucose (UA) Urine Ketones Urine Occult Blood Urine Nitrate Urine Bilirubin Urine Urobilinogen Ur Leukocyte Esterase Urine RBC Urine WBC Nasal Screen MRSA (PCR) Hepatitis A IgM Ab Hep Bs Antigen Hep B Core IgM Ab Hep C IgG Ab 01/11/18 01/11/18 10:25 10:40 WBC RBC Hgb Hct MCV MCH MCHC RDW Plt Count MPV Prelim Diff (Auto) Neut % (Auto) Lymph % (Auto) [place] % (Auto) Eos % (Auto) Baso % (Auto) Neut # (Auto) Lymph # (Auto) [place] # (Auto) Eos # (Auto) Baso # (Auto) WBC Differential Seg Neuts % (Manual) Band Neuts % (Manual) Monocytes % (Manual) Eosinophils % (Manual) Abs Neuts (Manual) Differential Comment Platelet Estimate Platelet Morphology Sodium Potassium Chloride Carbon Dioxide Anion Gap BUN Creatinine Estimated GFR POC Glucose 106 Random Glucose Lactic Acid 2.7 H Calcium Total Bilirubin AST ALT Alkaline Phosphatase Total Creatine Kinase Troponin I Total Protein Albumin Urine Color Urine Clarity Urine pH Ur Specific [place] Urine Protein Urine Glucose (UA) Urine Ketones Urine Occult Blood Urine Nitrate Urine Bilirubin Urine Urobilinogen Ur Leukocyte Esterase Urine RBC Urine WBC Nasal Screen MRSA (PCR) Hepatitis A IgM Ab Hep Bs Antigen Hep B Core IgM Ab Hep C IgG Ab - Imaging Impressions Venous Doppler Study 01/11/18 07:38 CONCLUSION: 1. No deep venous thrombosis in the visualized veins. 2. AV fistula is patent. Chest X-Ray 01/11/18 08:06 CONCLUSION: Adequate placement of right subclavian central line. Assessment and Plan - Plan Sepsis: fever, hypotension, leukocytosis > 15, lactic acidosis (2.7) source is gualberto AQUINO where she has a recent fistula, however other source can be a culprit, such as GI aggree with plan for CT A/P: will review the results monitor blood clx cont current abx (zosyn, vanco, IV flagyl) marina aYnez, Claudio Trinidad
[2018-01-11] MEDS ORDERED: Vancomycin Inj 1,250 MG in Sodium Chlor 0.9% Inj 250 ML IV.SIG ONE (15:00)
--- NOTE | 2018-01-11 15:19 | CT ---
EXAM DATE: 01/11/2018 3:05 PM EDT AGE/SEX: 77 years / Female INDICATIONS: Diffuse abdomen pain today. CLINICAL DATA: This is the patient's initial encounter. Patient reports that signs and symptoms have been present for 1 day and indicates a pain score of 7/10. MEDICAL/SURGICAL HISTORY: Deep venous thrombosis. Hypertension. Hysterectomy. Colostomy. RADIATION DOSE: 14.85 CTDI (mGy) COMPARISON: No prior exams available for comparison. TECHNIQUE: Multiple contiguous axial images were obtained through the abdomen. Images were obtained using multiple row detector helical technique. Using automated exposure control and adjustment of the mA and/or kV according to patient size, radiation dose was kept as low as reasonably achievable to o btain optimal diagnostic quality images. DICOM format image data is available electronically for rev iew and comparison. FINDINGS: Lower Lungs: Symmetric mild bibasilar atelectasis. Liver: The liver has a homogeneous density without space-occupying lesion for noncontrast technique. There is no dilation of the biliary tree. Mildly distended gallbladder with no calcified stones or ga llbladder wall thickening. Spleen: Homogeneous density without enlargement. Pancreas: Unremarkable without mass or calcification. Kidneys: Normal in size and shape. No evidence of mass or hydronephrosis. Adrenal Glands: Unremarkable. Aorta: The aorta and proximal iliac vessels are grossly unremarkable without aneurysmal dilation. Bowel/Mesentery: No dilated loops of small or large bowel. Stoma in the right lower quadrant. There is a presacral smooth margin low density which measures 4.4 x 2.6 cm in axial dimension and 5.3 cm in superior/inferior extent, mean CT density is 31 Hounsfield units. No internal gas seen within this c ollection. Abdominal Wall: Intact. Retroperitoneum: No evidence of adenopathy in the retrocrural, para-aortic, or deep pelvic regions. IVC filter. Bladder: Nondistended. Wise catheter. Reproductive Organs: No abnormal masses or calcifications seen. Inguinal: The inguinal region is unremarkable without evidence of adenopathy. Bony Structures: Unremarkable. CONCLUSION: 1. Smooth margin low density area in the presacral soft tissues could represent postsurgical change, fluid, or possibly abscess. There is no induration of the surrounding soft tissues. 2. No dilated loops of small or large bowel. 3. Mild bibasilar atelectasis without evidence of pleural effusion. Electronically signed by: Robin Agarwal MD 01/11/2018 3:17 PM EDT
--- NOTE | 2018-01-11 17:35 | P.PNADD ---
Addendum to Inpatient Note Additional information: CT reviewed with Erinn Wiseman presacral fluid collection/? abscess A/P: will consult GI for flexsig
[2018-01-12] MEDS: Norepinephrine Inj 4 MG in Sodium Chlor 0.9% Inj 246 ML IV.SIG PRN ×2 (00:18→09:35)
[2018-01-12] MEDS ORDERED: Chlorhexidine Gluconate 2% 1 Pack (2 Cloths) TOPICAL PRN (04:00)
[2018-01-12] MEDS: Piperacil/Tazo 2.25 GM Premix 50 ML IV.SIG SCH ×3 (04:20→18:09)
[2018-01-12] MEDS: Morphine Inj 4 MG/ML Vial IV.PUSH PRN ×2 (04:21→16:18)
[2018-01-12] MEDS: Chlorhexidine Gluconate 2% 1 Pack (2 Cloths) TOPICAL SCH (04:44)
[2018-01-12 04:48] LABS: Hematocrit 30.5 % (35.0-46.0); Mean Corpuscular HGB Conc 32.8 % (32.0-36.0); Mean Corpuscular Hemoglobin 32.5 pg (27.0-34.0); Mean Corpuscular Volume 99.1 fL (80.0-100.0); Mean Platelet Volume 8.6 fL (7.0-11.0); Platelet Count 83 th/mm3 (150-450); Red Blood Count 3.08 mil/mm3 (4.00-5.30); Red Cell Distribution Width 19.2 % (11.6-17.2); White Blood Count 17.1 th/mm3 (4.0-11.0)
[2018-01-12 05:07] LABS: Alanine Aminotransferase 28 U/L (10-53); Albumin 2.1 g/dL (3.4-5.0); Anion Gap 9 meq/L (5-15); Aspartate Aminotransferase 26 U/L (15-37); Blood Urea Nitrogen 32 mg/dL (7-18); Calcium 8.3 mg/dL (8.5-10.1); Carbon Dioxide 26.4 meq/L (21.0-32.0); Chloride 102 meq/L (98-107); Glomerular Filtration Rate 10 mL/min (>89); Glucose,Random 120 mg/dL (74-106); Potassium 3.9 meq/L (3.5-5.1); Sodium 137 meq/L (136-145)
[2018-01-12 05:12] LABS: Alkaline Phosphatase 192 U/L (45-117); Total Protein 5.9 g/dL (6.4-8.2)
--- NOTE | 2018-01-12 05:27 | XR ---
EXAM DATE: 01/12/2018 5:24 AM EDT AGE/SEX: 77 years / Female INDICATIONS: Shortness of breath. CLINICAL DATA: This is the patient's subsequent encounter. Patient reports that signs and symptoms h ave been present for 2 days and indicates a pain score of Nonresponsive. MEDICAL/SURGICAL HISTORY: . Hypertension. . Vascular dialysis cath COMPARISON: [facility], CHEST 1V SINGLE AP, 01/11/2018. . FINDINGS: Single AP view of the chest. Right subclavian central venous catheter and left subclavian dual-lumen central venous catheter remain in place. Lungs are clear. No evidence of pleural effusion or pneumoth orax. Cardiomediastinal silhouette within normal limits. CONCLUSION: No significant interval change. Lungs are clear. Electronically signed by: Frank Garcia MD 01/12/2018 5:26 AM EDT
[2018-01-12] MEDS: Famotidine PF Inj 20 MG/2 ML Vial IV.PUSH SCH ×2 (09:03→20:42)
[2018-01-12] MEDS: Senna/Docusate Sodium 8.6/50 MG Tablet PO SCH ×2 (09:03→20:44)
[2018-01-12] MEDS: Mupirocin 2% Nasal Oint Topical Syringe NASAL SCH ×2 (09:03→20:42)
[2018-01-12] MEDS: Acetaminophen 325 MG Tablet PO PRN ×3 (09:15→21:39)
--- NOTE | 2018-01-12 09:22 | P.CONGI ---
History of Present Illness Consult date: 01/12/18 Consult reason: rule out GI source of infection Chief complaint: Post Op swelling/Diarrhea History of Present Illness: This is a 77 yo F with GI history significant for previous perforate diverticulum which caused her to need a colostomy. 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 Pt reports her stool is generally loose but over the past couple days prior to arrival to the hospital it has been more liquid than normal. She has also had an episode of stool through her rectum, she has had a few isolated episodes of this, last one was two months prior. She does report some pain around the ileostomy site, constant, described as aching, relieved with pain medication. Reports some nausea but states this has been intermittently nauseous for a long time and she attributes this to having a sensitive stomach. Denies emesis. Also reports dysphagia worse with meats and pills, does find herself having to regurgitate her food. History of EGD with dilatation over 10 years ago. Of note , pt noted to have mildly elevated LFTs, denies personal or family history of liver issues. Denies ETOH, new or OTC prescription medication. <Shaunna Castle - Last Filed: 01/12/18 14:58> Review of Systems Gastrointestinal: Reports abdominal pain (around ileostomy site ), Reports change in stools, Reports difficulty swallowing, Reports loose stools, Reports nausea, Denies vomiting <Shaunna Castle - Last Filed: 01/12/18 14:58> [facility] - Medical History Medical History: Medical History (Last Reviewed 01/10/18 @ 19:46 by Telma Nguyen RN) Absent parathyroid gland Anemia DVT (deep venous thrombosis) Diverticulitis of colon with perforation End stage renal disease on dialysis History of blood product transfusion Hx of hysterectomy Hypertension Pulmonary embolism Vascular dialysis catheter in place - Surgical History Surgical History: Surgical History (Last Reviewed 01/10/18 @ 12:25 by Oksana Andrews, KALYAN) Hx of colostomy Hx of ileostomy - Family History Family History: Family History (Last Reviewed 01/10/18 @ 12:26 by Oksana Andrews, KALYAN) Son Kidney disease Daughter Kidney disease <Dennis Lopez - Last Filed: 01/12/18 12:42> - History History Provided By: Patient - Medical History Medical History: Medical History (Last Reviewed 01/10/18 @ 19:46 by Telma Nguyen RN) Absent parathyroid gland Anemia DVT (deep venous thrombosis) Diverticulitis of colon with perforation End stage renal disease on dialysis History of blood product transfusion Hx of hysterectomy Hypertension Pulmonary embolism Vascular dialysis catheter in place - Surgical History Surgical History: Surgical History (Last Reviewed 01/10/18 @ 12:25 by Oksana Andrews RN) Hx of colostomy Hx of ileostomy - Family History Family History: Family History (Last Reviewed 01/10/18 @ 12:26 by Oksana Andrews RN) Son Kidney disease Daughter Kidney disease - Tobacco History Second Hand Smoke Exposure: No Smoking Status: Never smoker - Alcohol History How Often Do You Have a Drink Containing Alcohol: Never - Substance Use History Substance History: No History of Abuse <Shaunna Castle - Last Filed: 01/12/18 14:58> Medications and Allergies Active Medications: Active Medications Acetaminophen (Tylenol) 650 mg PO Q4H PRN PRN Reason: Temp > 100.4 Last Admin: 01/12/18 09:15 Dose: 650 mg Acetaminophen (Tylenol) 650 mg PO UNSCH PRN PRN Reason: SEE LABEL COMMENTS Chlorhexidine Gluconate (Chlorhexidine 2% Cloth) 3 pack TOPICAL DAILY@0400 [place] Stop: 01/17/18 03:59 Last Admin: 01/12/18 04:44 Dose: 3 pack Chlorhexidine Gluconate (Chlorhexidine 2% Cloth) 3 pack TOPICAL DAILY@0400 PRN PRN Reason: Extra cloth needed Stop: 01/17/18 03:59 Clonidine HCl (Catapres) 0.1 mg PO UNSCH PRN PRN Reason: SEE LABEL COMMENTS Dextrose (D50w Vial) 50 ml IV.PUSH UNSCH PRN PRN Reason: PER HYPOGLYCEMIA PROTOCOL Diphenhydramine HCl (Benadryl) 25 mg PO UNSCH PRN PRN Reason: SEE LABEL COMMENTS Epoetin Justice (Epogen Inj) 4,000 unit IV.PUSH UNSCH PRN PRN Reason: SEE LABEL COMMENTS Last Admin: 01/11/18 09:05 Dose: 4,000 unit Famotidine (Pepcid Pf Inj) 10 mg IV.PUSH Q12HR [facility] Last Admin: 01/12/18 09:03 Dose: 10 mg Gelatin (Gelfoam 12 Mm/7 Mm Topical) 1 foam TOPICAL PRN PRN PRN Reason: help stop bleeding from site Gentamicin Sulfate (Gentamicin Inj) 20 mg OTHER WITH DIALYSIS PRN PRN Reason: Dwell Gentamycin Lock Last Admin: 01/11/18 09:06 Dose: 20 mg Glucagon (Glucagon Inj) 1 mg OTHER PRN PRN PRN Reason: for Hypoglycemia Protocol Heparin Sodium (Porcine) (Heparin Inj) 8,000 units OTHER WITH DIALYSIS PRN PRN Reason: for machine prime Heparin Sodium (Porcine) (Heparin Inj) 1,000 units OTHER WITH DIALYSIS PRN PRN Reason: Dwell Heparin to Fill Catheter Last Admin: 01/11/18 09:05 Dose: 1,000 units Sodium Chloride (Ns Inj) 1,000 mls @ 0 mls/hr OTHER .Q0M PRN PRN Reason: for prime and rinse back Sodium Chloride (Ns Inj) 1,000 mls @ 200 mls/hr OTHER .Q5H PRN PRN Reason: for dialyzer flush PRN Sodium Chloride (Ns Inj) 1,000 mls @ 0 mls/hr IV.CONT .Q0M PRN PRN Reason: hypotension / volume replace Albumin Human (Flexbumin 25% Inj) 100 mls @ 60 mls/hr IV.SIG WITH DIALYSIS PRN PRN Reason: hypotension / volume replace Last Infusion: 01/11/18 10:29 Dose: Infused Dextrose/Sodium Chloride (D5w/Normal Saline Inj) 1,000 mls @ 42 mls/hr IV.CONT .[id number] [facility] Last Admin: 01/10/18 22:30 Dose: 42 mls/hr Norepinephrine Bitartrate 4 mg (/ Sodium Chloride) 250 mls @ 7.5 mls/hr IV.SIG TITRATE PRN; Protocol PRN Reason: Per Protocol Last Admin: 01/12/18 09:35 Dose: 8 mcg/min, 30 mls/hr Metronidazole/Sodium Chloride (Flagyl 500 Mg Inj) 100 mls @ 100 mls/hr IV.SIG Q8H [facility] Last Infusion: 01/12/18 04:52 Dose: Infused Vancomycin HCl 1,000 mg/ (Sodium Chloride) 250 mls @ 250 mls/hr IV.SIG WITH DIALYSIS [facility] Piperacillin/Tazobactam/Dextrose (Zosyn 2.25 Gm Premix) 50 mls @ 100 mls/hr IV.SIG Q8H [facility] Lactulose (Lactulose Liq) 30 ml PO DAILY PRN PRN Reason: SEVERE CONSITIPATION Mannitol (Mannitol Inj) 12.5 gm IV.PUSH UNSCH PRN PRN Reason: hypotension / volume replace Morphine Sulfate (Morphine Inj) 2 mg IV.PUSH Q4H PRN PRN Reason: PAIN 6-10 Last Admin: 01/12/18 04:21 Dose: 2 mg Mupirocin (Bactroban 2% Nasal Oint) 1 applicatio NASAL BID [facility] Stop: 01/15/18 21:01 Last Admin: 01/12/18 09:03 Dose: 1 applicatio Nitroglycerin (Nitrostat Sl) 0.4 mg SL Q5M PRN PRN Reason: CHEST PAIN Senna/Docusate Sodium (Aidee-Colace) 1 tab PO BID [facility] Last Admin: 01/12/18 09:03 Dose: 1 tab Sodium Chloride (Ns Flush) 5 ml IV.FLUSH PRN PRN PRN Reason: flush each lumen during HD Terbutaline Sulfate (Brethine Inj) 1 mg SQ UNSCH PRN PRN Reason: For Extravasation <Dennis Lopez E - Last Filed: 01/12/18 12:42> Active Medications: Active Medications Acetaminophen (Tylenol) 650 mg PO Q4H PRN PRN Reason: Temp > 100.4 Last Admin: 01/11/18 23:13 Dose: 650 mg Acetaminophen (Tylenol) 650 mg PO UNSCH PRN PRN Reason: SEE LABEL COMMENTS Chlorhexidine Gluconate (Chlorhexidine 2% Cloth) 3 pack TOPICAL DAILY@0400 [place] Stop: 01/17/18 03:59 Last Admin: 01/12/18 04:44 Dose: 3 pack Chlorhexidine Gluconate (Chlorhexidine 2% Cloth) 3 pack TOPICAL DAILY@0400 PRN PRN Reason: Extra cloth needed Stop: 01/17/18 03:59 Clonidine HCl (Catapres) 0.1 mg PO UNSCH PRN PRN Reason: SEE LABEL COMMENTS Dextrose (D50w Vial) 50 ml IV.PUSH UNSCH PRN PRN Reason: PER HYPOGLYCEMIA PROTOCOL Diphenhydramine HCl (Benadryl) 25 mg PO UNSCH PRN PRN Reason: SEE LABEL COMMENTS Epoetin Justice (Epogen Inj) 4,000 unit IV.PUSH UNSCH PRN PRN Reason: SEE LABEL COMMENTS Last Admin: 01/11/18 09:05 Dose: 4,000 unit Famotidine (Pepcid Pf Inj) 10 mg IV.PUSH Q12HR [place] Last Admin: 01/12/18 09:03 Dose: 10 mg Gelatin (Gelfoam 12 Mm/7 Mm Topical) 1 foam TOPICAL PRN PRN PRN Reason: help stop bleeding from site Gentamicin Sulfate (Gentamicin Inj) 20 mg OTHER WITH DIALYSIS PRN PRN Reason: Dwell Gentamycin Lock Last Admin: 01/11/18 09:06 Dose: 20 mg Glucagon (Glucagon Inj) 1 mg OTHER PRN PRN PRN Reason: for Hypoglycemia Protocol Heparin Sodium (Porcine) (Heparin Inj) 8,000 units OTHER WITH DIALYSIS PRN PRN Reason: for machine prime Heparin Sodium (Porcine) (Heparin Inj) 1,000 units OTHER WITH DIALYSIS PRN PRN Reason: Dwell Heparin to Fill Catheter Last Admin: 01/11/18 09:05 Dose: 1,000 units Sodium Chloride (Ns Inj) 1,000 mls @ 0 mls/hr OTHER .Q0M PRN PRN Reason: for prime and rinse back Sodium Chloride (Ns Inj) 1,000 mls @ 200 mls/hr OTHER .Q5H PRN PRN Reason: for dialyzer flush PRN Sodium Chloride (Ns Inj) 1,000 mls @ 0 mls/hr IV.CONT .Q0M PRN PRN Reason: hypotension / volume replace Albumin Human (Flexbumin 25% Inj) 100 mls @ 60 mls/hr IV.SIG WITH DIALYSIS PRN PRN Reason: hypotension / volume replace Last Infusion: 01/11/18 10:29 Dose: Infused Dextrose/Sodium Chloride (D5w/Normal Saline Inj) 1,000 mls @ 42 mls/hr IV.CONT .[id number] [facility] Last Admin: 01/10/18 22:30 Dose: 42 mls/hr Piperacillin/Tazobactam/Dextrose (Zosyn 2.25 Gm Premix) 50 mls @ 100 mls/hr IV.SIG Q6H [facility] Last Admin: 01/12/18 09:02 Dose: 100 mls/hr Norepinephrine Bitartrate 4 mg (/ Sodium Chloride) 250 mls @ 7.5 mls/hr IV.SIG TITRATE PRN; Protocol PRN Reason: Per Protocol Last Titration: 01/12/18 04:53 Dose: 8 mcg/min, 30 mls/hr Metronidazole/Sodium Chloride (Flagyl 500 Mg Inj) 100 mls @ 100 mls/hr IV.SIG Q8H [facility] Last Infusion: 01/12/18 04:52 Dose: Infused Vancomycin HCl 1,000 mg/ (Sodium Chloride) 250 mls @ 250 mls/hr IV.SIG WITH DIALYSIS [facility] Lactulose (Lactulose Liq) 30 ml PO DAILY PRN PRN Reason: SEVERE CONSITIPATION Mannitol (Mannitol Inj) 12.5 gm IV.PUSH UNSCH PRN PRN Reason: hypotension / volume replace Morphine Sulfate (Morphine Inj) 2 mg IV.PUSH Q4H PRN PRN Reason: PAIN 6-10 Last Admin: 01/12/18 04:21 Dose: 2 mg Mupirocin (Bactroban 2% Nasal Oint) 1 applicatio NASAL BID [facility] Stop: 01/15/18 21:01 Last Admin: 01/12/18 09:03 Dose: 1 applicatio Nitroglycerin (Nitrostat Sl) 0.4 mg SL Q5M PRN PRN Reason: CHEST PAIN Senna/Docusate Sodium (Aidee-Colace) 1 tab PO BID [facility] Last Admin: 01/12/18 09:03 Dose: 1 tab Sodium Chloride (Ns Flush) 5 ml IV.FLUSH PRN PRN PRN Reason: flush each lumen during HD Terbutaline Sulfate (Brethine Inj) 1 mg SQ UNSCH PRN PRN Reason: For Extravasation <Shaunna Castle - Last Filed: 01/12/18 14:58> Allergies Allergy/AdvReac Type Severity Reaction Status Date / Time Sulfa (Sulfonamide Allergy Swelling Verified 01/10/18 12:23 Antibiotics) Home Medications Medication Instructions Recorded Confirmed Type apixaban [Eliquis] 5 mg PO BID 01/10/18 01/11/18 History febuxostat [Uloric] 40 mg PO DAILY 01/10/18 01/11/18 History metoprolol tartrate 50 mg PO BID 01/10/18 01/11/18 History ondansetron HCl [Zofran] 8 mg PO TID PRN 01/10/18 01/11/18 History tramadol 50 mg PO Q6H 01/10/18 01/11/18 History Exam Vital signs: Vital Signs 01/11/18 16:00 01/11/18 20:00 01/11/18 20:55 Temperature 100.4 F H 99.0 F Pulse Rate 104 H 110 H Respiratory Rate 27 H 18 Blood Pressure 118/58 L 103/79 Pulse Oximetry 99 99 100 01/11/18 22:00 01/12/18 00:00 01/12/18 04:00 Temperature 99.7 F H 99.7 F H Pulse Rate 110 H 102 H 96 H Respiratory Rate 19 22 Blood Pressure 81/42 L 109/53 L Pulse Oximetry 95 99 01/12/18 07:38 01/12/18 08:00 Temperature Pulse Rate Respiratory Rate Blood Pressure Pulse Oximetry 99 95 Intake & Output 01/11/18 01/12/18 01/12/18 18:59 06:59 18:59 Intake Total 250 / 250 350 / 350 250 / 250 Output Total 1500 / 1500 1300 / 1300 Balance -1250 / -1250 -950 / -950 250 / 250 Weight 61.7 kg Intake: IV 250 / 250 350 / 350 250 / 250 Flexbumin 25% Inj 100 ML @ 60 100 / 100 mls/hr IV.SIG WITH DIALYSIS PRN Rx#:[id number] Levophed Inj 4 MG In NS Inj 246 250 / 250 ML @ 2 MCG/MIN 7.5 mls/hr IV. SIG TITRATE PRN Rx#:[id number] Zosyn 2.25 GM Premix 50 ML @ 50 / 50 150 / 150 100 mls/hr IV.SIG Q6H [place] Rx#: [id number] Flagyl 500 MG Inj 100 ML @ 100 100 / 100 200 / 200 mls/hr IV.SIG Q8H [place] Rx#: [id number] Oral 0 / 0 Output: Hemodialysis Amount 1500 / 1500 Urine Amount (Catheter) 100 / 100 Indwelling Urethral Catheter 100 / 100 Stool Amount (Stoma) 1200 / 1200 Right Lower Abdomen 1200 / 1200 Other: Date of Last Bowel Movement 01/11/18 01/11/18 <Dennis Lopez E - Last Filed: 01/12/18 12:42> Vital signs: Vital Signs 01/11/18 09:26 01/11/18 12:00 01/11/18 16:00 Temperature 101.8 F H 100.4 F H Pulse Rate 126 H 104 H Respiratory Rate 26 H 27 H Blood Pressure 113/55 L 118/58 L Pulse Oximetry 100 100 99 01/11/18 20:00 01/11/18 20:55 01/11/18 22:00 Temperature 99.0 F Pulse Rate 110 H 110 H Respiratory Rate 18 Blood Pressure 103/79 Pulse Oximetry 99 100 01/12/18 00:00 01/12/18 04:00 01/12/18 07:38 Temperature 99.7 F H 99.7 F H Pulse Rate 102 H 96 H Respiratory Rate 19 22 Blood Pressure 81/42 L 109/53 L Pulse Oximetry 95 99 99 Intake & Output 01/11/18 01/12/18 01/12/18 18:59 06:59 18:59 Intake Total 250 / 250 350 / 350 Output Total 1500 / 1500 1300 / 1300 Balance -1250 / -1250 -950 / -950 Weight 61.7 kg Intake: IV 250 / 250 350 / 350 Flexbumin 25% Inj 100 ML @ 60 100 / 100 mls/hr IV.SIG WITH DIALYSIS PRN Rx#:[id number] Zosyn 2.25 GM Premix 50 ML @ 50 / 50 150 / 150 100 mls/hr IV.SIG Q6H [place] Rx#: [id number] Flagyl 500 MG Inj 100 ML @ 100 100 / 100 200 / 200 mls/hr IV.SIG Q8H [place] Rx#: [id number] Oral 0 / 0 Output: Hemodialysis Amount 1500 / 1500 Urine Amount (Catheter) 100 / 100 Indwelling Urethral Catheter 100 / 100 Stool Amount (Stoma) 1200 / 1200 Right Lower Abdomen 1200 / 1200 Other: Date of Last Bowel Movement 01/11/18 01/11/18 - Constitutional no acute distress - Routine HEENT Exam Head: Present: normocephalic, atraumatic - Routine Respiratory Exam Absent: accessory muscle use - Routine Cardiovascular Exam Present: RRR - Routine Abdominal Exam Present: soft, normoactive bowel sounds. Absent: tenderness, distended, rebound , guarding Comments: ileostomy with loose, green colored stool - Routine Skin Exam Present: dry, warm - Routine Neurological Exam Present: alert, oriented X3 <CorrineShaunna - Last Filed: 01/12/18 14:58> Results - Labs CBC & Chem 7: 01/12/18 04:36 01/12/18 04:36 Labs: Laboratory Results - last 24 hr 01/11/18 01/11/18 01/11/18 18:24 19:50 22:26 WBC RBC Hgb Hct MCV MCH MCHC RDW Plt Count MPV Sodium Potassium Chloride Carbon Dioxide Anion Gap BUN Creatinine Estimated GFR POC Glucose 126 H 148 H Random Glucose Calcium Total Bilirubin AST ALT Alkaline Phosphatase Total Protein Albumin Stl C.difficile Tox PCR Negative St C. diff Tox Epid 027 Negative 01/12/18 01/12/18 01/12/18 04:36 04:36 08:18 WBC 17.1 H RBC 3.08 L Hgb 10.0 L Hct 30.5 L MCV 99.1 MCH 32.5 MCHC 32.8 RDW 19.2 H Plt Count 83 L MPV 8.6 Sodium 137 Potassium 3.9 D Chloride 102 Carbon Dioxide 26.4 D Anion Gap 9 BUN 32 H Creatinine 4.49 H Estimated GFR 10 L POC Glucose 108 Random Glucose 120 H Calcium 8.3 L Total Bilirubin 0.6 AST 26 ALT 28 Alkaline Phosphatase 192 H Total Protein 5.9 L D Albumin 2.1 L Stl C.difficile Tox PCR St C. diff Tox Epid 027 - Imaging Impressions Abdomen/Pelvis CT 01/11/18 00:00 CONCLUSION: 1. Smooth margin low density area in the presacral soft tissues could represent postsurgical change, fluid, or possibly abscess. There is no induration of the surrounding soft tissues. 2. No dilated loops of small or large bowel. 3. Mild bibasilar atelectasis without evidence of pleural effusion. Chest X-Ray 01/12/18 06:00 CONCLUSION: No significant interval change. Lungs are clear. <Dennis Lopez - Last Filed: 01/12/18 12:42> - Labs CBC & Chem 7: 01/12/18 04:36 01/12/18 04:36 Labs: Laboratory Results - last 24 hr 01/11/18 01/11/18 01/11/18 08:43 08:43 10:25 WBC 15.8 H D RBC 2.92 L Hgb 9.7 L Hct 29.8 L MCV 101.9 H MCH 33.1 MCHC 32.5 RDW 18.9 H Plt Count 76 L D MPV 8.0 Prelim Diff (Auto) Slide review pending Neut % (Auto) 93.8 H Lymph % (Auto) 1.5 L [place] % (Auto) 3.5 Eos % (Auto) 1.1 Baso % (Auto) 0.1 Neut # (Auto) 14.9 H Lymph # (Auto) 0.2 L [place] # (Auto) 0.6 Eos # (Auto) 0.2 Baso # (Auto) 0.0 WBC Differential Manual diff final Seg Neuts % (Manual) 61 Band Neuts % (Manual) 32 H Monocytes % (Manual) 5 Eosinophils % (Manual) 2 Abs Neuts (Manual) 14.7 H Differential Comment . Platelet Estimate Low L Platelet Morphology Normal Sodium Potassium Chloride Carbon Dioxide Anion Gap BUN Creatinine Estimated GFR POC Glucose 106 Random Glucose Lactic Acid Calcium Total Bilirubin AST ALT Alkaline Phosphatase Total Creatine Kinase 30 Troponin I 0.05 Total Protein Albumin Stl C.difficile Tox PCR St C. diff Tox Epid 027 01/11/18 01/11/18 01/11/18 10:40 18:24 19:50 WBC RBC Hgb Hct MCV MCH MCHC RDW Plt Count MPV Prelim Diff (Auto) Neut % (Auto) Lymph % (Auto) [place] % (Auto) Eos % (Auto) Baso % (Auto) Neut # (Auto) Lymph # (Auto) [place] # (Auto) Eos # (Auto) Baso # (Auto) WBC Differential Seg Neuts % (Manual) Band Neuts % (Manual) Monocytes % (Manual) Eosinophils % (Manual) Abs Neuts (Manual) Differential Comment Platelet Estimate Platelet Morphology Sodium Potassium Chloride Carbon Dioxide Anion Gap BUN Creatinine Estimated GFR POC Glucose 126 H Random Glucose Lactic Acid 2.7 H Calcium Total Bilirubin AST ALT Alkaline Phosphatase Total Creatine Kinase Troponin I Total Protein Albumin Stl C.difficile Tox PCR Negative St C. diff Tox Epid 027 Negative 01/11/18 01/12/18 01/12/18 22:26 04:36 04:36 WBC 17.1 H RBC 3.08 L Hgb 10.0 L Hct 30.5 L MCV 99.1 MCH 32.5 MCHC 32.8 RDW 19.2 H Plt Count 83 L MPV 8.6 Prelim Diff (Auto) Neut % (Auto) Lymph % (Auto) [place] % (Auto) Eos % (Auto) Baso % (Auto) Neut # (Auto) Lymph # (Auto) [place] # (Auto) Eos # (Auto) Baso # (Auto) WBC Differential Seg Neuts % (Manual) Band Neuts % (Manual) Monocytes % (Manual) Eosinophils % (Manual) Abs Neuts (Manual) Differential Comment Platelet Estimate Platelet Morphology Sodium 137 Potassium 3.9 D Chloride 102 Carbon Dioxide 26.4 D Anion Gap 9 BUN 32 H Creatinine 4.49 H Estimated GFR 10 L POC Glucose 148 H Random Glucose 120 H Lactic Acid Calcium 8.3 L Total Bilirubin 0.6 AST 26 ALT 28 Alkaline Phosphatase 192 H Total Creatine Kinase Troponin I Total Protein 5.9 L D Albumin 2.1 L Stl C.difficile Tox PCR St C. diff Tox Epid 027 01/12/18 08:18 WBC RBC Hgb Hct MCV MCH MCHC RDW Plt Count MPV Prelim Diff (Auto) Neut % (Auto) Lymph % (Auto) [place] % (Auto) Eos % (Auto) Baso % (Auto) Neut # (Auto) Lymph # (Auto) [place] # (Auto) Eos # (Auto) Baso # (Auto) WBC Differential Seg Neuts % (Manual) Band Neuts % (Manual) Monocytes % (Manual) Eosinophils % (Manual) Abs Neuts (Manual) Differential Comment Platelet Estimate Platelet Morphology Sodium Potassium Chloride Carbon Dioxide Anion Gap BUN Creatinine Estimated GFR POC Glucose 108 Random Glucose Lactic Acid Calcium Total Bilirubin AST ALT Alkaline Phosphatase Total Creatine Kinase Troponin I Total Protein Albumin Stl C.difficile Tox PCR St C. diff Tox Epid 027 - Imaging Impressions Abdomen/Pelvis CT 01/11/18 00:00 CONCLUSION: 1. Smooth margin low density area in the presacral soft tissues could represent postsurgical change, fluid, or possibly abscess. There is no induration of the surrounding soft tissues. 2. No dilated loops of small or large bowel. 3. Mild bibasilar atelectasis without evidence of pleural effusion. Venous Doppler Study 01/11/18 07:38 CONCLUSION: 1. No deep venous thrombosis in the visualized veins. 2. AV fistula is patent. Chest X-Ray 01/12/18 06:00 CONCLUSION: No significant interval change. Lungs are clear. <Shaunna Castle - Last Filed: 01/12/18 14:58> Assessment and Plan - Attending Attestation Patient seen and examined Agree with above Continue with current supportive care Monitor labs We will proceed with an EGD and ileoscopy and flex sig tomorrow to further evaluate above complaints <Dennis Lopez - Last Filed: 01/12/18 12:42> - Plan Assessment: - Diarrhea- Pt with history of perforated diverticulum S/P colostomy S/P reversal, began having abdominal pains and issues with BM so sounds like she had a laparoscopy requiring adhesiolysis and 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 Pt normally with loose stools but states they have been increasingly watery over the past few days. Denies any change in amount of stool. Also, had one episode of passing stool through her rectum, states has had isolated episodes of this, last one was 2 months ago. (Surgeries done by ALONDRA Case, at [facility]) Last colonoscopy 10 years ago prior to ileostomy. CT abdomen and pelvis WO IV contrast Smooth margin low density area in the presacral soft tissues could represent postsurgical change, fluid, or possibly abscess. There is no induration of the surrounding soft tissues. No dilated loops of small or large bowel C. Diff and enteric pathogens negative . - Dysphagia worse with meats and pills- states feels like her food gets stuck and occasional regurgitation of the food Last EGD with dilatation over ten years ago - Nausea, denies emesis- states this is not a new symptom and that she relates her intermittent nausea to having a sensitive stomach - Sepsis- recent AVG placement- ID following- source of infection AVG vs GI- Pt on Levophed for blood pressure support. Zosyn, Flagyl, Vancomycin - ESRD on HD Plan: Flex sigmoidoscopy through rectum EGD with dilatation Obtain consent NPO after MN Hold Heparin gtt after 4 am Soap suds enema x 2 Continue abx per ID Further recommendations based on findings of above Pt has been seen and examined by myself and Dr. Lopez and this note is written on his behalf <Shaunna Castle - Last Filed: 01/12/18 14:58>
--- NOTE | 2018-01-12 12:23 | P.PNCA ---
- Note Subjective/Hospital Course: The swelling over the left AV graft site is somewhat decreased but still present. Cellulitis is decreased and the redness is definitely diminished Patient is hemodynamically improved Considering the patient is better and swelling is decreased will not resort to drainage or surgery at this time however if this does not improve significantly in next 24-48 hours patient will need exploration of this and possible drainage Unfortunately, at that time the AV graft may be doomed to be sacrificed for repeated opening of the graft usually does not end up well as far as preserving the access Therefore I believe this should be the last resort and hence the hesitation to open the graft site as long as patient is doing better Objective: Vital Signs - 24 hr 01/11/18 16:00 01/11/18 20:00 01/11/18 20:55 Temperature 100.4 F H 99.0 F Pulse Rate 104 H 110 H Respiratory Rate 27 H 18 Blood Pressure 118/58 L 103/79 Pulse Oximetry 99 99 100 01/11/18 22:00 01/12/18 00:00 01/12/18 04:00 Temperature 99.7 F H 99.7 F H Pulse Rate 110 H 102 H 96 H Respiratory Rate 19 22 Blood Pressure 81/42 L 109/53 L Pulse Oximetry 95 99 01/12/18 07:38 01/12/18 08:00 Temperature Pulse Rate Respiratory Rate Blood Pressure Pulse Oximetry 99 95 Labs: Laboratory Results - last 12 hr 01/12/18 01/12/18 01/12/18 04:36 04:36 08:18 WBC 17.1 H RBC 3.08 L Hgb 10.0 L Hct 30.5 L MCV 99.1 MCH 32.5 MCHC 32.8 RDW 19.2 H Plt Count 83 L MPV 8.6 Sodium 137 Potassium 3.9 D Chloride 102 Carbon Dioxide 26.4 D Anion Gap 9 BUN 32 H Creatinine 4.49 H Estimated GFR 10 L POC Glucose 108 Random Glucose 120 H Calcium 8.3 L Total Bilirubin 0.6 AST 26 ALT 28 Alkaline Phosphatase 192 H Total Protein 5.9 L D Albumin 2.1 L Result Diagrams: 01/12/18 04:36 01/12/18 04:36
--- NOTE | 2018-01-12 12:47 | P.PNCC ---
Subjective Subjective Remarks/Hospital Course: History of Present Illness: This is a 77 year female with a PMH of end-stage renal disease on dialysis( Saturday) HTN, H/o Perforated Diverticulitis s/p Colostomy, with reversal and then ileostomy. She recently had AVG placement by Dr. Ventura on 01/01/18. Patient presented to the [facility] emergency department on 01/10/2018 for left upper extremity swelling and was transferred to [facility] for admission. She also had generalized weakness and diarrhea from rectum despite ileostomy. (C diff cultures sent in [place] pending). Initially patient was hypotensive and received multiple fluid boluses with improvement in blood pressure has been hypotensive w/ BP 81/45, HR 89, O2 sat 100% on RA, Afebrile. Seen by Dr. Means, no indication for surgical intervention at this time. Patient was placed in the ICU for persistent hypotension, overnight received 1.5L NS boluses again for hypotension. Despite fluid boluses map remained in low 50s indicating persistent worsening septic shock and critical care medicine was consulted. Patient is currently receiving vancomycin and Zosyn renally dosed. I have instructed RN to give 500 mL fluid bolus followed by starting Levophed. Patient had a fever up to 102.7. On my exam left lower surrounding the AV graft incision appears red and warm and swollen. This appears to be the source of infection and I have discussed with Dr. Antoine who will evaluate the patient again. Get ID consult. Continue current antibiotics. Patient also gave a history of pulmonary embolism had been on Coumadin for last 10 years also , recently 2 months ago switched to Eliquis 01/12/18: Patient remains critical. Remains on Levophed at 4 mcg/min. T-max 101.8 currently fever trending down. WBC count is 17.1. CT abdomen showed some fluid collection in the presacral soft tissues. Source of infection most likely still appears to be infected AV graft. I have discussed with vascular surgery Dr. Antoine. He indicates no surgery at this time as the swelling has decreased slightly and cellulitis seems to be improving, he wants to put every attempt to salvage the graft if possible. Blood cultures remains negative so far, continue IV vancomycin and Zosyn and Flagyl. Infectious disease and vascular surgery following Objective Vital Signs / I&O: Vital Signs 01/11/18 16:00 01/11/18 20:00 01/11/18 20:55 Temperature 100.4 F H 99.0 F Pulse Rate 104 H 110 H Respiratory Rate 27 H 18 Blood Pressure 118/58 L 103/79 Pulse Oximetry 99 99 100 01/11/18 22:00 01/12/18 00:00 01/12/18 04:00 Temperature 99.7 F H 99.7 F H Pulse Rate 110 H 102 H 96 H Respiratory Rate 19 22 Blood Pressure 81/42 L 109/53 L Pulse Oximetry 95 99 01/12/18 07:38 01/12/18 08:00 Temperature Pulse Rate Respiratory Rate Blood Pressure Pulse Oximetry 99 95 Intake & Output 01/11/18 01/12/18 01/12/18 18:59 06:59 18:59 Intake Total 250 / 250 350 / 350 250 / 250 Output Total 1500 / 1500 1300 / 1300 Balance -1250 / -1250 -950 / -950 250 / 250 Weight 61.7 kg Intake: IV 250 / 250 350 / 350 250 / 250 Flexbumin 25% Inj 100 ML @ 60 100 / 100 mls/hr IV.SIG WITH DIALYSIS PRN Rx#:[id number] Levophed Inj 4 MG In NS Inj 246 250 / 250 ML @ 2 MCG/MIN 7.5 mls/hr IV. SIG TITRATE PRN Rx#:[id number] Zosyn 2.25 GM Premix 50 ML @ 50 / 50 150 / 150 100 mls/hr IV.SIG Q6H [place] Rx#: [id number] Flagyl 500 MG Inj 100 ML @ 100 100 / 100 200 / 200 mls/hr IV.SIG Q8H [place] Rx#: [id number] Oral 0 / 0 Output: Hemodialysis Amount 1500 / 1500 Urine Amount (Catheter) 100 / 100 Indwelling Urethral Catheter 100 / 100 Stool Amount (Stoma) 1200 / 1200 Right Lower Abdomen 1200 / 1200 Other: Date of Last Bowel Movement 01/11/18 01/11/18 Result Diagrams: 01/12/18 04:36 01/12/18 04:36 Objective Remarks: GENERAL: Pleasant elderly white female critically ill hypotensive, septic HEENT: PERRLA, EOMI. No scleral icterus or conjunctival pallor. No lid lag or facial droop. CARDIOVASCULAR: Regular rate and rhythm. No chest tenderness to palpation. RESPIRATORY: No obvious rhonchi or wheezing. Clear to auscultation. Breath sounds equal bilaterally. GASTROINTESTINAL: Abdomen soft, non-tender, nondistended. BS normal. Ileotomy present with greenish output MUSCULOSKELETAL: Left arm surrounding AV graft incision is tender, swollen and erythematous. No discharge at site of incision NEUROLOGICAL: Awake, alert and oriented x4. No focal neurologic deficits. Follows commands 4 Assessment and Plan - Assessment and Plan Plan: System based assessment and plan: NEURO: -Minimize sedation -Mild lethargy most likely secondary to severe sepsis RESP: History of DVT/pulmonary embolism -Currently Eliquis is placed on hold in anticipation of invasive procedures, start IV Heparin -Her pulmonary embolism and DVT was postoperative and was about 10 years ago -DuoNeb every 6 hours scheduled and as needed -Aggressive pulmonary toilet CV: Septic shock Lactic acidosis -s/p Normal saline IV fluids 2L bolus -Levophed to keep map above 65 -Hold home antihypertensives (on metoprolol 50 mg twice daily at home) -Trend lactic acid -Source of sepsis appears to be infected AV graft GI: History of colostomy with reversal, followed by ileostomy Presacral fluid collection -N.p.o., IV famotidine, start renal diet -Ileostomy care -GI consulted for small presacral fluid collection and also patient complained about diarrhea from the rectum -If sepsis not improving, IR drainage of fluid collection may be required : ESRD -Patient has end-stage renal disease and is on Saturday, , Saturday schedule for dialysis -Nephrology Dr. 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 Antoine following for vascular, patient may need surgical debridement, at this time he recommends continuing IV antibiotics to salvage the graft -F/U Blood cultures, C Diff -RUE venous US ordered -ID Dr. Harper HEME: Chronic apixaban use -Monitor CBC, coags -Hold apixaban, start IV heparin in anticipation of possible surgical intervention ENDO: -Electrolyte replacement per protocol PROPH: -Bilateral lower extremity SCDs. Famotidine. hold apixaban, start IV heparin for possible surgical intervention LINES: -Utilize peripheral IVs, right subclavian central line placed 01/11/2018 CC time 35 min Ms. Hare is a 77-year-old lady with end-stage renal disease patient recently placed AV graft with severe septic shock probably from probable graft infection. Remains critically ill with ongoing sepsis. ID vascular, GI following Code Status: Full Discussed Condition With: Drs. Means and Meredith
[2018-01-12] MEDS ORDERED: Heparin 10,000 UNITS/10 ML Vial (for IV use) IV.PUSH STA (13:13)
--- NOTE | 2018-01-12 13:46 | P.PNNP ---
Subjective Interval history: Patient has been feeling better left arm is swollen complaining of some abdominal pain but able to tolerate oral foods going to have endoscopy tomorrow Physical Exam Vital signs: Vital Signs 01/11/18 16:00 01/11/18 20:00 01/11/18 20:55 Temperature 100.4 F H 99.0 F Pulse Rate 104 H 110 H Respiratory Rate 27 H 18 Blood Pressure 118/58 L 103/79 Pulse Oximetry 99 99 100 01/11/18 22:00 01/12/18 00:00 01/12/18 04:00 Temperature 99.7 F H 99.7 F H Pulse Rate 110 H 102 H 96 H Respiratory Rate 19 22 Blood Pressure 81/42 L 109/53 L Pulse Oximetry 95 99 01/12/18 07:38 01/12/18 08:00 Temperature Pulse Rate Respiratory Rate Blood Pressure Pulse Oximetry 99 95 Intake & Output 01/11/18 01/12/18 01/12/18 18:59 06:59 18:59 Intake Total 250 / 250 350 / 350 250 / 250 Output Total 1500 / 1500 1300 / 1300 Balance -1250 / -1250 -950 / -950 250 / 250 Weight 61.7 kg Intake: IV 250 / 250 350 / 350 250 / 250 Flexbumin 25% Inj 100 ML @ 60 100 / 100 mls/hr IV.SIG WITH DIALYSIS PRN Rx#:[id number] Levophed Inj 4 MG In NS Inj 246 250 / 250 ML @ 2 MCG/MIN 7.5 mls/hr IV. SIG TITRATE PRN Rx#:[id number] Zosyn 2.25 GM Premix 50 ML @ 50 / 50 150 / 150 100 mls/hr IV.SIG Q6H [place] Rx#: [id number] Flagyl 500 MG Inj 100 ML @ 100 100 / 100 200 / 200 mls/hr IV.SIG Q8H [place] Rx#: [id number] Oral 0 / 0 Output: Hemodialysis Amount 1500 / 1500 Urine Amount (Catheter) 100 / 100 Indwelling Urethral Catheter 100 / 100 Stool Amount (Stoma) 1200 / 1200 Right Lower Abdomen 1200 / 1200 Other: Date of Last Bowel Movement 01/11/18 01/11/18 - Constitutional no acute distress - Routine HEENT Exam Head: Present: normocephalic - Routine Neck Exam Present: supple - Routine Respiratory Exam Present: CTA bilaterally - Routine Cardiovascular Exam Present: RRR - Routine Abdominal Exam Present: soft, normoactive bowel sounds (Ileostomy) - Routine Extremities Exam Present: edema (Left arm) - Urinary Catheter Management Indwelling Urethral Catheter Cath placed during this visit: yes Reason for continuing: Hourly intake/output Insertion date: 01/10/18 Insertion time: 20:00 Assessment and Plan - Assessment (1) ESRD on dialysis Code(s): N18.6 - End stage renal disease; Z99.2 - Dependence on renal dialysis Status: Chronic Plan: Hemodialysis on Saturday, and Saturday Patient left arm is less swollen Continue with antibiotic coverage Cultures so far negative Fever has improved White cell count remains elevated Patient is scheduled for endoscopy in the morning continue to monitor Current visit: Yes (2) Hypertension Code(s): I10 - Essential (primary) hypertension Status: Acute Qualifiers: Hypertension type: essential hypertension Qualified Code(s): I10 - Essential (primary) hypertension (3) Sepsis Code(s): A41.9 - Sepsis, unspecified organism Status: Acute
[2018-01-12 14:10] LABS: Activated Partial Thrombo Time 32.5 sec (24.3-30.1); INR 1.3 Ratio; Prothrombin Time 13.6 sec (9.8-11.6)
[2018-01-12] MEDS: Heparin Drip 25,000 UNIT/250 ML BAG IV.CONT PRN (14:52)
[2018-01-12 22:15] LABS: Activated Partial Thrombo Time 68.8 sec (24.3-30.1); INR 1.3 Ratio; Prothrombin Time 12.9 sec (9.8-11.6)
--- NOTE | 2018-01-12 23:02 | P.PNID ---
Subjective Remarks: delayed entry Pt was seen earlier today resolution of diarrhea co LUE pain Antibiotics: vanco flagyl zosyn Allergies/Adverse Reactions: Allergies Sulfa (Sulfonamide Antibiotics) Allergy (Verified 01/10/18 12:23) Swelling Objective Vital Signs 01/12/18 00:00 01/12/18 04:00 01/12/18 07:38 Temperature 99.7 F H 99.7 F H Pulse Rate 102 H 96 H Respiratory Rate 19 22 Blood Pressure 81/42 L 109/53 L Pulse Oximetry 95 99 99 01/12/18 08:00 01/12/18 12:00 01/12/18 16:00 Temperature 100 F H 99.1 F 98.1 F Pulse Rate 98 H 100 H 84 Respiratory Rate 20 23 15 Blood Pressure 119/58 L 123/57 L 119/58 L Pulse Oximetry 97 100 97 01/12/18 18:30 01/12/18 19:40 Temperature 98.1 F Pulse Rate 98 H Respiratory Rate 20 Blood Pressure 107/51 L Pulse Oximetry 98 97 Intake & Output 01/12/18 01/12/18 01/13/18 06:59 18:59 06:59 Intake Total 350 / 350 1310 / 1310 50 / 50 Output Total 1300 / 1300 550 / 550 Balance -950 / -950 760 / 760 50 / 50 Weight 61.7 kg Intake: IV 350 / 350 350 / 350 50 / 50 Levophed Inj 4 MG In NS Inj 246 250 / 250 ML @ 2 MCG/MIN 7.5 mls/hr IV. SIG TITRATE PRN Rx#:[id number] Zosyn 2.25 GM Premix 50 ML @ 150 / 150 50 / 50 100 mls/hr IV.SIG Q8H [place] Rx#: [id number] Flagyl 500 MG Inj 100 ML @ 100 200 / 200 100 / 100 mls/hr IV.SIG Q8H [place] Rx#: [id number] Oral 960 / 960 Output: Urine Amount (Catheter) 100 / 100 150 / 150 Indwelling Urethral Catheter 100 / 100 150 / 150 Stool Amount (Stoma) 1200 / 1200 400 / 400 Right Lower Abdomen 1200 / 1200 400 / 400 Other: Date of Last Bowel Movement 01/11/18 01/12/18 01/11/18 08:43 Blood - Peripheral Aerobic Blood Culture - Preliminary No growth in 1 day 01/11/18 08:43 Blood - Peripheral Anaerobic Blood Culture - Preliminary No growth in 1 day 01/11/18 08:35 Blood - Peripheral Aerobic Blood Culture - Preliminary No growth in 1 day 01/11/18 08:35 Blood - Peripheral Anaerobic Blood Culture - Preliminary No growth in 1 day Lab - Hematology Results 01/11/18 01/12/18 08:43 04:36 WBC 15.8 H D 17.1 H RBC 2.92 L 3.08 L Hgb 9.7 L 10.0 L Hct 29.8 L 30.5 L MCV 101.9 H 99.1 MCH 33.1 32.5 MCHC 32.5 32.8 RDW 18.9 H 19.2 H Plt Count 76 L D 83 L MPV 8.0 8.6 Prelim Diff (Auto) Slide review pending Neut % (Auto) 93.8 H Lymph % (Auto) 1.5 L [place] % (Auto) 3.5 Eos % (Auto) 1.1 Baso % (Auto) 0.1 Neut # (Auto) 14.9 H Lymph # (Auto) 0.2 L [place] # (Auto) 0.6 Eos # (Auto) 0.2 Baso # (Auto) 0.0 WBC Differential Manual diff final Seg Neuts % (Manual) 61 Band Neuts % (Manual) 32 H Monocytes % (Manual) 5 Eosinophils % (Manual) 2 Abs Neuts (Manual) 14.7 H Differential Comment . Platelet Estimate Low L Platelet Morphology Normal Lab - Chemistry Results 01/10/18 01/10/18 01/11/18 23:31 23:31 04:15 Sodium 133 L 133 L Potassium 4.3 D 5.3 H D Chloride 107 107 Carbon Dioxide 13.4 L 14.1 L Anion Gap 13 12 BUN 58 H 59 H Creatinine 7.40 H 7.54 H Estimated GFR 5 L 5 L POC Glucose Random Glucose 196 H D 106 Lactic Acid 2.4 H Calcium 8.5 8.6 Total Bilirubin 1.1 H AST 55 H ALT 34 Alkaline Phosphatase 266 H Total Creatine Kinase Troponin I Total Protein 6.9 D Albumin 2.1 L 01/11/18 01/11/18 01/11/18 08:43 10:25 10:40 Sodium Potassium Chloride Carbon Dioxide Anion Gap BUN Creatinine Estimated GFR POC Glucose 106 Random Glucose Lactic Acid 2.7 H Calcium Total Bilirubin AST ALT Alkaline Phosphatase Total Creatine Kinase 30 Troponin I 0.05 Total Protein Albumin 01/11/18 01/11/18 01/12/18 18:24 22:26 04:36 Sodium 137 Potassium 3.9 D Chloride 102 Carbon Dioxide 26.4 D Anion Gap 9 BUN 32 H Creatinine 4.49 H Estimated GFR 10 L POC Glucose 126 H 148 H Random Glucose 120 H Lactic Acid Calcium 8.3 L Total Bilirubin 0.6 AST 26 ALT 28 Alkaline Phosphatase 192 H Total Creatine Kinase Troponin I Total Protein 5.9 L D Albumin 2.1 L 01/12/18 01/12/18 01/12/18 08:18 13:16 21:25 Sodium Potassium Chloride Carbon Dioxide Anion Gap BUN Creatinine Estimated GFR POC Glucose 108 121 H 85 Random Glucose Lactic Acid Calcium Total Bilirubin AST ALT Alkaline Phosphatase Total Creatine Kinase Troponin I Total Protein Albumin Imaging: ITS Impressions Abdomen/Pelvis CT 01/11/18 00:00 CONCLUSION: 1. Smooth margin low density area in the presacral soft tissues could represent postsurgical change, fluid, or possibly abscess. There is no induration of the surrounding soft tissues. 2. No dilated loops of small or large bowel. 3. Mild bibasilar atelectasis without evidence of pleural effusion. Venous Doppler Study 01/11/18 07:38 CONCLUSION: 1. No deep venous thrombosis in the visualized veins. 2. AV fistula is patent. Chest X-Ray 01/12/18 06:00 CONCLUSION: No significant interval change. Lungs are clear. Physical Exam: GENERAL: SKIN: Warm and dry. HEAD: Atraumatic. Normocephalic. EYES: Pupils equal and round. No scleral icterus. No injection or drainage. ENT: No nasal bleeding or discharge. Mucous membranes pink and moist. NECK: Trachea midline. No JVD. CARDIOVASCULAR: Regular rate and rhythm. RESPIRATORY: No accessory muscle use. Clear to auscultation. Breath sounds equal bilaterally. GASTROINTESTINAL: Abdomen soft, non-tender, distended. Hepatic and splenic margins not palpable. MUSCULOSKELETAL: Extremities without clubbing, cyanosis, Still prominent edema less erythema of LUE. NEUROLOGICAL: Awake and alert. No obvious cranial nerve deficits. Motor grossly within normal limits. Five out of 5 muscle strength in the arms and legs. Normal speech. PSYCHIATRIC: Appropriate mood and affect; insight and judgment normal. Assessment and Plan - Plan Sepsis: fever, hypotension, leukocytosis > 15, lactic acidosis (2.7) -clinically improved source is gualberto AQUINO where she has a recent fistula, however other source can be a culprit, such as GI monitor blood clx cont current abx (zosyn, vanco, IV flagyl) dw Dr Trniidad,
[2018-01-13] MEDS: Piperacil/Tazo 2.25 GM Premix 50 ML IV.SIG SCH ×3 (01:04→17:14)
[2018-01-13 04:36] LABS: Hematocrit 27.7 % (35.0-46.0); Hemoglobin 9.4 gm/dL (11.6-15.3); Mean Corpuscular HGB Conc 33.8 % (32.0-36.0); Mean Corpuscular Hemoglobin 33.7 pg (27.0-34.0); Mean Corpuscular Volume 99.7 fL (80.0-100.0); Mean Platelet Volume 9.1 fL (7.0-11.0); Platelet Count 55 th/mm3 (150-450); Red Blood Count 2.78 mil/mm3 (4.00-5.30); Red Cell Distribution Width 18.6 % (11.6-17.2); White Blood Count 10.2 th/mm3 (4.0-11.0)
[2018-01-13 05:05] LABS: Alanine Aminotransferase 15 U/L (10-53); Albumin 1.7 g/dL (3.4-5.0); Alkaline Phosphatase 130 U/L (45-117); Anion Gap 8 meq/L (5-15); Aspartate Aminotransferase 11 U/L (15-37); Blood Urea Nitrogen 44 mg/dL (7-18); Calcium 8.4 mg/dL (8.5-10.1); Carbon Dioxide 23.6 meq/L (21.0-32.0); Chloride 103 meq/L (98-107); Glomerular Filtration Rate 8 mL/min (>89); Glucose,Random 94 mg/dL (74-106); Sodium 135 meq/L (136-145); Total Protein 5.1 g/dL (6.4-8.2)
[2018-01-13] MEDS: Chlorhexidine Gluconate 2% 1 Pack (2 Cloths) TOPICAL SCH (05:19)
[2018-01-13] MEDS: Norepinephrine Inj 4 MG in Sodium Chlor 0.9% Inj 246 ML IV.SIG PRN (05:51)
--- NOTE | 2018-01-13 06:51 | XR ---
EXAM DATE: 01/13/2018 5:18 AM EDT AGE/SEX: 77 years / Female INDICATIONS: Respiratory disease. CLINICAL DATA: This is the patient's subsequent encounter. Patient reports that signs and symptoms h ave been present for 4 - 6 days and indicates a pain score of 5/10. MEDICAL/SURGICAL HISTORY: . Hypertension. Diverticulitis. Renal Disease . Colostomy. Hysterect kamila. Ileostomy, Vascular dialysis cath COMPARISON: [facility], CHEST 1V SINGLE AP, 01/12/2018. . FINDINGS: A single AP view of the chest demonstrates developing left basilar atelectatic changes. Lungs otherwi se remain clear. Heart size is upper limits of normal. Left IJ dialysis type catheter with the right subclavian central venous catheter are unchanged in position. CONCLUSION: 1. Developing left basilar atelectasis. Lungs are otherwise clear. 2. Stable position of the left IJ dialysis type catheter and right subclavian central venous cathete r. Electronically signed by: Luis M Plasencia MD 01/13/2018 6:50 AM EDT
--- NOTE | 2018-01-13 08:39 | P.PNCC ---
Subjective Subjective Remarks/Hospital Course: History of Present Illness: This is a 77 year female with a PMH of end-stage renal disease on dialysis( Saturday) HTN, H/o Perforated Diverticulitis s/p Colostomy, with reversal and then ileostomy. She recently had AVG placement by Dr. Ventura on 01/01/18. Patient presented to the [facility] emergency department on 01/10/2018 for left upper extremity swelling and was transferred to [facility] for admission. She also had generalized weakness and diarrhea from rectum despite ileostomy. (C diff cultures sent in [place] pending). Initially patient was hypotensive and received multiple fluid boluses with improvement in blood pressure has been hypotensive w/ BP 81/45, HR 89, O2 sat 100% on RA, Afebrile. Seen by Dr. Means, no indication for surgical intervention at this time. Patient was placed in the ICU for persistent hypotension, overnight received 1.5L NS boluses again for hypotension. Despite fluid boluses map remained in low 50s indicating persistent worsening septic shock and critical care medicine was consulted. Patient is currently receiving vancomycin and Zosyn renally dosed. I have instructed RN to give 500 mL fluid bolus followed by starting Levophed. Patient had a fever up to 102.7. On my exam left lower surrounding the AV graft incision appears red and warm and swollen. This appears to be the source of infection and I have discussed with Dr. Antoine who will evaluate the patient again. Get ID consult. Continue current antibiotics. Patient also gave a history of pulmonary embolism had been on Coumadin for last 10 years also , recently 2 months ago switched to Eliquis 01/12/18: Patient remains critical. Remains on Levophed at 4 mcg/min. T-max 101.8 currently fever trending down. WBC count is 17.1. CT abdomen showed some fluid collection in the presacral soft tissues. Source of infection most likely still appears to be infected AV graft. I have discussed with vascular surgery Dr. Antoine. He indicates no surgery at this time as the swelling has decreased slightly and cellulitis seems to be improving, he wants to put every attempt to salvage the graft if possible. Blood cultures remains negative so far, continue IV vancomycin and Zosyn and Flagyl. Infectious disease and vascular surgery following. 01/13: Afebrile. Leukocytosis has resolved. Recent diarrhea appears to have largely resolved. Left arm remains edematous. Objective Vital Signs / I&O: Vital Signs 01/12/18 12:00 01/12/18 16:00 01/12/18 18:30 Temperature 99.1 F 98.1 F 98.1 F Pulse Rate 100 H 84 98 H Respiratory Rate 23 15 20 Blood Pressure 123/57 L 119/58 L 107/51 L Pulse Oximetry 100 97 98 01/12/18 19:40 01/12/18 20:00 01/13/18 00:00 Temperature 97.6 F 98 F Pulse Rate 92 H 96 H Respiratory Rate 16 16 Blood Pressure 108/54 L 93/55 L Pulse Oximetry 97 97 98 01/13/18 04:00 01/13/18 07:34 Temperature 98 F Pulse Rate 90 Respiratory Rate 16 Blood Pressure 88/49 L Pulse Oximetry 100 100 Intake & Output 01/12/18 01/13/18 01/13/18 18:59 06:59 18:59 Intake Total 1310 / 1310 550 / 550 Output Total 550 / 550 250 / 250 Balance 760 / 760 300 / 300 Weight 63.2 kg Intake: IV 350 / 350 450 / 450 Levophed Inj 4 MG In NS Inj 246 250 / 250 250 / 250 ML @ 2 MCG/MIN 7.5 mls/hr IV. SIG TITRATE PRN Rx#:[id number] Zosyn 2.25 GM Premix 50 ML @ 100 / 100 100 mls/hr IV.SIG Q8H [place] Rx#: [id number] Flagyl 500 MG Inj 100 ML @ 100 100 / 100 100 / 100 mls/hr IV.SIG Q8H [place] Rx#: [id number] Oral 960 / 960 100 / 100 Output: Urine Amount (Catheter) 150 / 150 250 / 250 Indwelling Urethral Catheter 150 / 150 250 / 250 Stool Amount (Stoma) 400 / 400 Right Lower Abdomen 400 / 400 Other: Date of Last Bowel Movement 01/12/18 01/12/18 Result Diagrams: 01/13/18 04:10 01/13/18 04:10 Objective Remarks: GENERAL: Pleasant elderly white female critically ill hypotensive, septic HEENT: PERRLA, EOMI. No scleral icterus or conjunctival pallor. No lid lag or facial droop. CARDIOVASCULAR: Regular rate and rhythm. No chest tenderness to palpation. Neck veins are full, not distended. RESPIRATORY: No obvious rhonchi or wheezing. Clear to auscultation. Breath sounds equal bilaterally. Comfortable. GASTROINTESTINAL: Abdomen soft, non-tender, nondistended. BS normal. Ileotomy present with greenish output MUSCULOSKELETAL: Left arm surrounding AV graft incision is tender, swollen and erythematous. No discharge at site of incision. NEUROLOGICAL: Awake, alert and oriented x4. No focal neurologic deficits. Follows commands 4 Assessment and Plan - Assessment and Plan Plan: System based assessment and plan: NEURO: -Minimize sedation -Mild lethargy most likely secondary to severe sepsis RESP: History of DVT/pulmonary embolism -Currently Eliquis is placed on hold in anticipation of invasive procedures, start IV Heparin -Her pulmonary embolism and DVT was postoperative and was about 10 years ago -DuoNeb every 6 hours scheduled and as needed -Aggressive pulmonary toilet CV: Septic shock Lactic acidosis -s/p Normal saline IV fluids 2L bolus -Levophed to keep map above 65 -Hold home antihypertensives (on metoprolol 50 mg twice daily at home) -Trend lactic acid -Source of sepsis appears to be infected AV graft GI: History of colostomy with reversal, followed by ileostomy Presacral fluid collection -N.p.o., IV famotidine, start renal diet -Ileostomy care -GI consulted for small presacral fluid collection and also patient complained about diarrhea from the rectum -If sepsis not improving, IR drainage of fluid collection may be required : ESRD -Patient has end-stage renal disease and is on Saturday, , Saturday schedule for dialysis -Nephrology Dr. 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 Antoine following for vascular, patient may need surgical debridement, at this time he recommends continuing IV antibiotics to salvage the graft -F/U Blood cultures, C Diff -RUE venous US ordered -ID Dr. Harper HEME: Chronic apixaban use -Monitor CBC, coags -Hold apixaban, start IV heparin in anticipation of possible surgical intervention ENDO: -Electrolyte replacement per protocol PROPH: -Bilateral lower extremity SCDs. Famotidine. hold apixaban, start IV heparin for possible surgical intervention LINES: -Utilize peripheral IVs, right subclavian central line placed 01/11/2018 Overall impression: Patient presented with systemic sepsis requiring vasopressor support. Etiology unclear, pathological diarrhea versus left arm infection. She is responded well to antibiotics and hydration therapy. Remains on Levophed 2 mcg/min.
--- NOTE | 2018-01-13 10:14 | GIPROC ---
[facility] [address] [facility]. [facility], [address] EGD PROCEDURE REPORT EXAM DATE: 01/13/2018 PATIENT NAME: Leidy Hare MR #: [id number] BIRTHDATE: 1940 ATTENDING: Layne Herring MD ORDER #: [id number] [employer] PREP TEACHER: Pako Roberts and Tsering Pena STATUS: inpatient INDICATIONS: The patient is a 77 yr old female here for an EGD due to dysphagia PROCEDURE PERFORMED: EGD w/ biopsy EGD w/ balloon dilation of esophagus MEDICATIONS: None and Per Anesthesia. TOPICAL ANESTHETIC: none CONSENT: The patient understands the risks and benefits of the procedure and understands that these risks include, but are not limited to: sedation, allergic reaction, infection, perforation and/or bleeding. Alternative means of evaluation and treatment include, among others: physical exam, x-rays, and/or surgical intervention. The patient elects to proceed with this endoscopic procedure. medical equipment was checked for proper function. Hand hygiene and appropriate measures for infection prevention was taken. After the risks, benefits and alternatives of the procedure were thoroughly explained, Informed consent was verified, confirmed and timeout was successfully executed by the treatment team. The patient was anesthetized with topical anesthesia and the EC-3490Li (Pedi C) endoscope was introduced through the mouth and advanced to the second portion of the duodenum. Retroflexed views revealed no abnormalities The gastroscope was then slowly withdrawn and removed. Severe narrowing of the esophagus I was not able to pass the scope at the beginning, a guidewire was passed through the stricture with balloon dilators size 11, 13, 14-1/2, 15-1/2 the scope was passed through the second portion of the duodenum retroflexion was performed in the stomach and the scope brought back to the esophagus biopsy was done Severe esophageal stricture Severe esophagitis grade D. ADVERSE EVENTS: There were no complications. IMPRESSIONS: 1. Severe narrowing of the esophagus I was not able to pass the scope at the beginning, a guidewire was passed through the stricture with balloon dilators size 11, 13, 14-1/2, 15-1/2 the scope was passed through the second portion of the duodenum retroflexion was performed in the stomach and the scope brought back to the esophagus biopsy was done Severe esophageal stricture Severe esophagitis grade D 2. Retroflexed views revealed no abnormalities RECOMMENDATIONS: 1. Await biopsy results. Biopsy results will not be ready for 7-10 days. If you don't hear from us in two weeks, call our office for biopsy results. 2. Anti-reflux regimen 3. Avoid NSAIDS 4. Soft diet Protonix 40 mg daily PATIENT CONDITION: stable DISPOSITION: Inpatient REPEAT EXAM: Return 5 weeks EGD Layne Herring MD eSigned: Layne Herring MD 01/13/2018 10:14 AM cc: PATIENT NAME: Leidy Hare MR#: [id number]
--- NOTE | 2018-01-13 10:19 | GIPROC ---
[facility] [address] [facility]. [facility], [address] ENTEROSCOPY PROCEDURE REPORT EXAM DATE: 01/13/2018 PATIENT NAME: Leidy Hare MR#: [id number] BIRTHDATE: 1940 ATTENDING: Layne Herring MD ORDER #: [id number] S[employer]IOR SALES CONSULTANT: Pako Roberts and Tsering Pena STATUS: inpatient INDICATIONS: The patient is a 77 yr old female here for an enteroscopy procedure due to Diarrhea PROCEDURE PERFORMED: Diagnostic small bowel enteroscopy MEDICATIONS: None and Per Anesthesia. CONSENT: The patient understands the risks and benefits of the procedure and understands that these risks include, but are not limited to: sedation, allergic reaction, infection, perforation and/or bleeding. Alternative means of evaluation and treatment include, among others: physical exam, x-rays, and/or surgical intervention. The patient elects to proceed with this endoscopic procedure. medical equipment was checked for proper function. Hand hygiene and appropriate measures for infection prevention was taken. After the risks, benefits and alternatives of the procedure were thoroughly explained, Informed consent was verified, confirmed and timeout was successfully executed by the treatment team. The Pentax EC-3490Li endoscope was introduced through theIleostomy stomaand advanced to the ileum.About 40-50 cm The prep was good. The instrument was then slowly withdrawn while examining the mucosa circumferentially. The scope was then completely withdrawn from the patient and the procedure terminated. The pulse, BP, and O2 saturation were monitored and documented by the physician and the nursing staff throughout the entire procedure. The patient was cared for as planned according to standard protocol, then discharged to recovery in stable condition and with appropriate post procedure care. Normal jejunum ADVERSE EVENTS: There were no complications. IMPRESSIONS: Normal ileum exam RECOMMENDATIONS: Flexible sigmoidoscopy to be done now RECALL: None Layne Herring MD eSigned: Layne Herring MD 01/13/2018 10:18 AM cc:
--- NOTE | 2018-01-13 10:25 | P.PNGI ---
Subjective Interval history: Patient laying in bed comfortably, seems to be a little bit better, the stool start to solidified no diarrhea anymore, white blood cells improving, still having anemia Physical Exam Vital signs: Vital Signs 01/12/18 12:00 01/12/18 16:00 01/12/18 18:30 Temperature 99.1 F 98.1 F 98.1 F Pulse Rate 100 H 84 98 H Respiratory Rate 23 15 20 Blood Pressure 123/57 L 119/58 L 107/51 L Pulse Oximetry 100 97 98 01/12/18 19:40 01/12/18 20:00 01/13/18 00:00 Temperature 97.6 F 98 F Pulse Rate 92 H 96 H Respiratory Rate 16 16 Blood Pressure 108/54 L 93/55 L Pulse Oximetry 97 97 98 01/13/18 04:00 01/13/18 07:34 01/13/18 08:00 Temperature 98 F Pulse Rate 90 Respiratory Rate 16 20 Blood Pressure 88/49 L Pulse Oximetry 100 100 100 01/13/18 09:00 Temperature 98.3 F Pulse Rate 104 H Respiratory Rate 23 Blood Pressure 120/58 L Pulse Oximetry 100 Intake & Output 01/12/18 01/13/18 01/13/18 18:59 06:59 18:59 Intake Total 1310 / 1310 550 / 550 40 / 40 Output Total 550 / 550 250 / 250 Balance 760 / 760 300 / 300 40 / 40 Weight 63.2 kg Intake: IV 350 / 350 450 / 450 Levophed Inj 4 MG In NS Inj 246 250 / 250 250 / 250 ML @ 2 MCG/MIN 7.5 mls/hr IV. SIG TITRATE PRN Rx#:[id number] Zosyn 2.25 GM Premix 50 ML @ 100 / 100 100 mls/hr IV.SIG Q8H [place] Rx#: [id number] Flagyl 500 MG Inj 100 ML @ 100 100 / 100 100 / 100 mls/hr IV.SIG Q8H [place] Rx#: [id number] Oral 960 / 960 100 / 100 Anesthesia Amount 40 / 40 Output: Urine Amount (Catheter) 150 / 150 250 / 250 Indwelling Urethral Catheter 150 / 150 250 / 250 Stool Amount (Stoma) 400 / 400 Right Lower Abdomen 400 / 400 Other: Date of Last Bowel Movement 01/12/18 01/12/18 - Constitutional no acute distress Comments: Still weak - Routine HEENT Exam Head: Present: normocephalic, atraumatic Eye: Present: EOMI, PERRL - Routine Neck Exam Present: supple, full ROM - Routine Respiratory Exam Comments: Normal exam - Routine Abdominal Exam Present: soft (Positive bowel sounds, ileostomy in place full of green stool semisolid no blood) - Urinary Catheter Management Indwelling Urethral Catheter Cath placed during this visit: yes Reason for continuing: Hourly intake/output Insertion date: 01/10/18 Insertion time: 20:00 Results - Labs CBC & Chem 7: 01/13/18 04:10 01/13/18 04:10 Laboratory Results - last 24 hr 01/12/18 01/12/18 01/12/18 13:16 13:30 21:20 WBC RBC Hgb Hct MCV MCH MCHC RDW Plt Count MPV PT 13.6 H 12.9 H INR 1.3 1.3 APTT 32.5 H 68.8 H D Sodium Potassium Chloride Carbon Dioxide Anion Gap BUN Creatinine Estimated GFR POC Glucose 121 H Random Glucose Calcium Total Bilirubin AST ALT Alkaline Phosphatase Total Protein Albumin 01/12/18 01/13/18 01/13/18 21:25 04:10 04:10 WBC 10.2 RBC 2.78 L Hgb 9.4 L Hct 27.7 L MCV 99.7 MCH 33.7 MCHC 33.8 RDW 18.6 H Plt Count 55 L D MPV 9.1 PT INR APTT Sodium 135 L Potassium 4.0 Chloride 103 Carbon Dioxide 23.6 Anion Gap 8 BUN 44 H Creatinine 5.15 H Estimated GFR 8 L POC Glucose 85 Random Glucose 94 Calcium 8.4 L Total Bilirubin 0.4 AST 11 L ALT 15 Alkaline Phosphatase 130 H Total Protein 5.1 L D Albumin 1.7 L Microbiology 01/11/18 08:43 Blood - Peripheral Aerobic Blood Culture - Preliminary No growth in 1 day 01/11/18 08:43 Blood - Peripheral Anaerobic Blood Culture - Preliminary No growth in 1 day 01/11/18 08:35 Blood - Peripheral Aerobic Blood Culture - Preliminary No growth in 1 day 01/11/18 08:35 Blood - Peripheral Anaerobic Blood Culture - Preliminary No growth in 1 day - Imaging Impressions Chest X-Ray 01/13/18 06:00 CONCLUSION: 1. Developing left basilar atelectasis. Lungs are otherwise clear. 2. Stable position of the left IJ dialysis type catheter and right subclavian central venous catheter. Assessment and Plan - Plan Patient 77-year-old lady who has dysphagia diarrhea anemia seems to be doing better, she had ileoscopy, upper endoscopy, flexible sigmoidoscopy On upper endoscopy she has severe esophageal stricture status post dilation with a balloon, she also has severe esophagitis biopsy was done Ileoscopy was normal Flexible sigmoidoscopy showed some irritation possible proctitis secondary to colon resection biopsy was done Recommend No NSAIDs Soft diet Protonix 40 mg daily Repeat EGD in 5-6 weeks Follow-up biopsies
[2018-01-13] MEDS: Morphine Inj 4 MG/ML Vial IV.PUSH PRN ×2 (10:56→22:04)
[2018-01-13] MEDS: Famotidine PF Inj 20 MG/2 ML Vial IV.PUSH SCH ×2 (11:00→21:54)
[2018-01-13] MEDS: Mupirocin 2% Nasal Oint Topical Syringe NASAL SCH ×2 (11:03→21:54)
[2018-01-13] MEDS: Senna/Docusate Sodium 8.6/50 MG Tablet PO SCH ×2 (11:03→21:55)
[2018-01-13] MEDS ORDERED: Lidocaine PF 1% Inj 5 ML Syringe INFILTRATN ONE (12:00)
--- NOTE | 2018-01-13 12:25 | P.PNID ---
Subjective Remarks: sigmoidoscopy with proctitis resolution of diarrhea co LUE pain on low doses of pressors Antibiotics: vanco flagyl zosyn Allergies/Adverse Reactions: Allergies Sulfa (Sulfonamide Antibiotics) Allergy (Verified 01/10/18 12:23) Swelling Objective Vital Signs 01/12/18 16:00 01/12/18 18:30 01/12/18 19:40 Temperature 98.1 F 98.1 F Pulse Rate 84 98 H Respiratory Rate 15 20 Blood Pressure 119/58 L 107/51 L Pulse Oximetry 97 98 97 01/12/18 20:00 01/13/18 00:00 01/13/18 04:00 Temperature 97.6 F 98 F 98 F Pulse Rate 92 H 96 H 90 Respiratory Rate 16 16 16 Blood Pressure 108/54 L 93/55 L 88/49 L Pulse Oximetry 97 98 100 01/13/18 07:34 01/13/18 08:00 01/13/18 09:00 Temperature 98.3 F Pulse Rate 104 H 104 H Respiratory Rate 20 23 Blood Pressure 120/58 L Pulse Oximetry 100 100 100 Intake & Output 01/12/18 01/13/18 01/13/18 18:59 06:59 18:59 Intake Total 1310 / 1310 650 / 650 40 / 40 Output Total 550 / 550 250 / 250 Balance 760 / 760 400 / 400 40 / 40 Weight 63.2 kg Intake: IV 350 / 350 550 / 550 Levophed Inj 4 MG In NS Inj 246 250 / 250 250 / 250 ML @ 2 MCG/MIN 7.5 mls/hr IV. SIG TITRATE PRN Rx#:[id number] Zosyn 2.25 GM Premix 50 ML @ 100 / 100 100 mls/hr IV.SIG Q8H [place] Rx#: [id number] Flagyl 500 MG Inj 100 ML @ 100 100 / 100 200 / 200 mls/hr IV.SIG Q8H [place] Rx#: [id number] Oral 960 / 960 100 / 100 Anesthesia Amount 40 / 40 Output: Urine Amount (Catheter) 150 / 150 250 / 250 Indwelling Urethral Catheter 150 / 150 250 / 250 Stool Amount (Stoma) 400 / 400 Right Lower Abdomen 400 / 400 Other: Date of Last Bowel Movement 01/12/18 01/12/18 01/12/18 01/11/18 08:43 Blood - Peripheral Aerobic Blood Culture - Preliminary No growth in 2 days 01/11/18 08:43 Blood - Peripheral Anaerobic Blood Culture - Preliminary No growth in 2 days 01/11/18 08:35 Blood - Peripheral Aerobic Blood Culture - Preliminary No growth in 2 days 01/11/18 08:35 Blood - Peripheral Anaerobic Blood Culture - Preliminary No growth in 2 days Lab - Hematology Results 01/12/18 01/13/18 04:36 04:10 WBC 17.1 H 10.2 RBC 3.08 L 2.78 L Hgb 10.0 L 9.4 L Hct 30.5 L 27.7 L MCV 99.1 99.7 MCH 32.5 33.7 MCHC 32.8 33.8 RDW 19.2 H 18.6 H Plt Count 83 L 55 L D MPV 8.6 9.1 Lab - Chemistry Results 01/11/18 01/11/18 01/12/18 18:24 22:26 04:36 Sodium 137 Potassium 3.9 D Chloride 102 Carbon Dioxide 26.4 D Anion Gap 9 BUN 32 H Creatinine 4.49 H Estimated GFR 10 L POC Glucose 126 H 148 H Random Glucose 120 H Calcium 8.3 L Total Bilirubin 0.6 AST 26 ALT 28 Alkaline Phosphatase 192 H Total Protein 5.9 L D Albumin 2.1 L 01/12/18 01/12/18 01/12/18 08:18 13:16 21:25 Sodium Potassium Chloride Carbon Dioxide Anion Gap BUN Creatinine Estimated GFR POC Glucose 108 121 H 85 Random Glucose Calcium Total Bilirubin AST ALT Alkaline Phosphatase Total Protein Albumin 01/13/18 04:10 Sodium 135 L Potassium 4.0 Chloride 103 Carbon Dioxide 23.6 Anion Gap 8 BUN 44 H Creatinine 5.15 H Estimated GFR 8 L POC Glucose Random Glucose 94 Calcium 8.4 L Total Bilirubin 0.4 AST 11 L ALT 15 Alkaline Phosphatase 130 H Total Protein 5.1 L D Albumin 1.7 L Imaging: ITS Impressions Abdomen/Pelvis CT 01/11/18 00:00 CONCLUSION: 1. Smooth margin low density area in the presacral soft tissues could represent postsurgical change, fluid, or possibly abscess. There is no induration of the surrounding soft tissues. 2. No dilated loops of small or large bowel. 3. Mild bibasilar atelectasis without evidence of pleural effusion. Venous Doppler Study 01/11/18 07:38 CONCLUSION: 1. No deep venous thrombosis in the visualized veins. 2. AV fistula is patent. Chest X-Ray 01/13/18 06:00 CONCLUSION: 1. Developing left basilar atelectasis. Lungs are otherwise clear. 2. Stable position of the left IJ dialysis type catheter and right subclavian central venous catheter. Physical Exam: GENERAL: SKIN: Warm and dry. HEAD: Atraumatic. Normocephalic. EYES: Pupils equal and round. No scleral icterus. No injection or drainage. ENT: No nasal bleeding or discharge. Mucous membranes pink and moist. NECK: Trachea midline. No JVD. CARDIOVASCULAR: Regular rate and rhythm. RESPIRATORY: No accessory muscle use. Clear to auscultation. Breath sounds equal bilaterally. GASTROINTESTINAL: Abdomen soft, non-tender, distended. Hepatic and splenic margins not palpable. MUSCULOSKELETAL: Extremities without clubbing, cyanosis, Still prominent edema but less erythema of LUE. NEUROLOGICAL: Awake and alert. No obvious cranial nerve deficits. Motor grossly within normal limits. Five out of 5 muscle strength in the arms and legs. Normal speech. PSYCHIATRIC: Appropriate mood and affect; insight and judgment normal. Assessment and Plan - Plan Sepsis: fever, hypotension, leukocytosis > 15, lactic acidosis (2.7) imroved clinically leukocytosis also improved source is gualberto AQUINO where she has a recent fistula, however other source can be a culprit, such as GI Proctitis on sigmoidoscopy cont zosyn, IV flagyl cont vanco fu blood clx untill final marina BIGGS
[2018-01-13] MEDS: Acetaminophen 325 MG Tablet PO PRN ×2 (13:54→22:03)
--- NOTE | 2018-01-13 14:35 | P.PNNP ---
Subjective Interval history: Patient feels better left arm swelling is going down Physical Exam Vital signs: Vital Signs 01/12/18 16:00 01/12/18 18:30 01/12/18 19:40 Temperature 98.1 F 98.1 F Pulse Rate 84 98 H Respiratory Rate 15 20 Blood Pressure 119/58 L 107/51 L Pulse Oximetry 97 98 97 01/12/18 20:00 01/13/18 00:00 01/13/18 04:00 Temperature 97.6 F 98 F 98 F Pulse Rate 92 H 96 H 90 Respiratory Rate 16 16 16 Blood Pressure 108/54 L 93/55 L 88/49 L Pulse Oximetry 97 98 100 01/13/18 07:34 01/13/18 08:00 01/13/18 09:00 Temperature 98.3 F Pulse Rate 104 H 104 H Respiratory Rate 20 23 Blood Pressure 120/58 L Pulse Oximetry 100 100 100 01/13/18 12:00 Temperature Pulse Rate Respiratory Rate 20 Blood Pressure Pulse Oximetry Intake & Output 01/12/18 01/13/18 01/13/18 18:59 06:59 18:59 Intake Total 1310 / 1310 650 / 650 190 / 190 Output Total 550 / 550 250 / 250 Balance 760 / 760 400 / 400 190 / 190 Weight 63.2 kg Intake: IV 350 / 350 550 / 550 150 / 150 Levophed Inj 4 MG In NS Inj 246 250 / 250 250 / 250 ML @ 2 MCG/MIN 7.5 mls/hr IV. SIG TITRATE PRN Rx#:[id number] Zosyn 2.25 GM Premix 50 ML @ 100 / 100 50 / 50 100 mls/hr IV.SIG Q8H [place] Rx#: [id number] Flagyl 500 MG Inj 100 ML @ 100 100 / 100 200 / 200 100 / 100 mls/hr IV.SIG Q8H [place] Rx#: [id number] Oral 960 / 960 100 / 100 Anesthesia Amount 40 / 40 Output: Urine Amount (Catheter) 150 / 150 250 / 250 Indwelling Urethral Catheter 150 / 150 250 / 250 Stool Amount (Stoma) 400 / 400 Right Lower Abdomen 400 / 400 Other: Date of Last Bowel Movement 01/12/18 01/12/18 01/12/18 - Constitutional no acute distress - Routine HEENT Exam Head: Present: normocephalic Eye: Present: EOMI - Routine Neck Exam Present: supple - Routine Respiratory Exam Present: CTA bilaterally - Routine Cardiovascular Exam Present: RRR - Routine Abdominal Exam Present: soft, normoactive bowel sounds - Routine Extremities Exam Present: edema (Left arm AV graft) - Urinary Catheter Management Indwelling Urethral Catheter Cath placed during this visit: yes Reason for continuing: Hourly intake/output Insertion date: 01/10/18 Insertion time: 20:00 Assessment and Plan - Assessment (1) ESRD on dialysis Code(s): N18.6 - End stage renal disease; Z99.2 - Dependence on renal dialysis Status: Chronic Current visit: Yes (2) Hypertension Code(s): I10 - Essential (primary) hypertension Status: Acute Qualifiers: Hypertension type: essential hypertension Qualified Code(s): I10 - Essential (primary) hypertension (3) Sepsis Code(s): A41.9 - Sepsis, unspecified organism Status: Acute - Plan Patient has improved symptoms cellulitis have decreased, AV graft is patent Blood cultures negative Possibly skin infection is considered due to cellulitis Continue to observe hemodialysis on Saturday, and Saturday Continue to monitor Tacrolimus level drawn earlier for cough as he took medications last night at 2315 the levels were drawn at 9:40 AM it was 13
[2018-01-13] MEDS: Heparin Drip 25,000 UNIT/250 ML BAG IV.CONT PRN (23:11)
[2018-01-14] MEDS: Piperacil/Tazo 2.25 GM Premix 50 ML IV.SIG SCH ×3 (00:43→17:58)
[2018-01-14] MEDS: Dextrose 5%/NaCl 0.9% Inj 1,000 ML IV.CONT SCH (00:50)
[2018-01-14] MEDS: Acetaminophen 325 MG Tablet PO PRN ×2 (02:25→09:37)
[2018-01-14] MEDS: Chlorhexidine Gluconate 2% 1 Pack (2 Cloths) TOPICAL SCH (04:12)
[2018-01-14 06:15] LABS: Hematocrit 26.7 % (35.0-46.0); Hemoglobin 8.8 gm/dL (11.6-15.3); Mean Corpuscular HGB Conc 32.8 % (32.0-36.0); Mean Corpuscular Hemoglobin 32.9 pg (27.0-34.0); Mean Corpuscular Volume 100.1 fL (80.0-100.0); Mean Platelet Volume 9.3 fL (7.0-11.0); Platelet Count 48 th/mm3 (150-450); Red Blood Count 2.67 mil/mm3 (4.00-5.30); Red Cell Distribution Width 18.7 % (11.6-17.2); White Blood Count 6.8 th/mm3 (4.0-11.0)
[2018-01-14 06:43] LABS: Albumin 1.5 g/dL (3.4-5.0); Carbon Dioxide 19.2 meq/L (21.0-32.0); Phosphorus 3.1 mg/dL (2.5-4.9)
[2018-01-14] MEDS: Mupirocin 2% Nasal Oint Topical Syringe NASAL SCH ×2 (09:37→20:38)
[2018-01-14] MEDS: Famotidine PF Inj 20 MG/2 ML Vial IV.PUSH SCH ×2 (09:37→20:37)
[2018-01-14] MEDS: Senna/Docusate Sodium 8.6/50 MG Tablet PO SCH ×2 (09:37→20:38)
--- NOTE | 2018-01-14 12:03 | P.PNGI ---
Subjective Interval history: Pt resting in bed. States loose stool in ileostomy. No further stool from rectum. Denies nausea and vomiting. Pt does report a sore throat today also had issues swallowing her pills this morning. <Shaunna Castle - Last Filed: 01/14/18 11:56> Physical Exam Vital signs: Vital Signs 01/13/18 12:00 01/13/18 16:00 01/13/18 16:36 Temperature 98.0 F 98.8 F Pulse Rate 104 H 100 H Respiratory Rate 20 24 15 Blood Pressure 108/51 L 103/55 L Pulse Oximetry 94 L 100 01/13/18 19:34 01/13/18 20:00 01/14/18 00:00 Temperature 99.5 F 99.9 F H Pulse Rate 106 H 101 H Respiratory Rate 23 18 Blood Pressure 106/82 109/56 L Pulse Oximetry 100 01/14/18 04:00 01/14/18 08:09 Temperature 98.1 F Pulse Rate 90 Respiratory Rate 14 Blood Pressure 107/55 L Pulse Oximetry 100 Intake & Output 01/13/18 01/14/18 01/14/18 18:59 06:59 18:59 Intake Total 1200 / 1200 1390 / 1390 Output Total 300 / 300 550 / 550 Balance 900 / 900 840 / 840 Weight 66.2 kg Intake: IV 200 / 200 1290 / 1290 D5W/Normal Saline Inj 1,000 ML 540 / 540 @ 42 mls/hr IV.CONT .[id number] [place] Rx#:[id number] Heparin/D5W 25,000 U/250 mL 25, 500 / 500 000 unit In 250 ml @ Per Protocol IV.CONT TITRATE PRN Rx #:[id number] Zosyn 2.25 GM Premix 50 ML @ 100 / 100 50 / 50 100 mls/hr IV.SIG Q8H [place] Rx#: [id number] Flagyl 500 MG Inj 100 ML @ 100 100 / 100 200 / 200 mls/hr IV.SIG Q8H [place] Rx#: [id number] Oral 960 / 960 100 / 100 Anesthesia Amount 40 / 40 Output: Urine Amount (Catheter) 300 / 300 200 / 200 Indwelling Urethral Catheter 300 / 300 200 / 200 Stool Amount (Stoma) 350 / 350 Right Lower Abdomen 350 / 350 Other: Date of Last Bowel Movement 01/12/18 01/14/18 - Constitutional no acute distress - Routine HEENT Exam Head: Present: normocephalic, atraumatic - Routine Respiratory Exam Absent: accessory muscle use - Routine Abdominal Exam Present: soft, normoactive bowel sounds. Absent: tenderness Comments: Ileostomy bag with loose green stool - Routine Skin Exam Present: dry, warm - Routine Neurological Exam Present: alert, oriented X3 - Urinary Catheter Management Indwelling Urethral Catheter Cath placed during this visit: yes Reason for continuing: Hourly intake/output Insertion date: 01/10/18 Insertion time: 20:00 <Shaunna Castle - Last Filed: 01/14/18 11:56> Vital signs: Vital Signs 01/13/18 16:00 01/13/18 16:36 01/13/18 19:34 Temperature 98.8 F Pulse Rate 100 H Respiratory Rate 24 15 Blood Pressure 103/55 L Pulse Oximetry 100 100 01/13/18 20:00 01/14/18 00:00 01/14/18 04:00 Temperature 99.5 F 99.9 F H 98.1 F Pulse Rate 106 H 101 H 90 Respiratory Rate 23 18 14 Blood Pressure 106/82 109/56 L 107/55 L Pulse Oximetry 01/14/18 08:00 01/14/18 08:09 01/14/18 12:00 Temperature Pulse Rate 90 Respiratory Rate 20 Blood Pressure Pulse Oximetry 100 01/14/18 12:34 Temperature Pulse Rate Respiratory Rate 20 Blood Pressure Pulse Oximetry Intake & Output 01/13/18 01/14/18 01/14/18 18:59 06:59 18:59 Intake Total 1200 / 1200 1390 / 1390 150 / 150 Output Total 300 / 300 550 / 550 Balance 900 / 900 840 / 840 150 / 150 Weight 66.2 kg Intake: IV 200 / 200 1290 / 1290 150 / 150 D5W/Normal Saline Inj 1,000 ML 540 / 540 @ 42 mls/hr IV.CONT .[id number] [facility] Rx#:[id number] Heparin/D5W 25,000 U/250 mL 25, 500 / 500 000 unit In 250 ml @ Per Protocol IV.CONT TITRATE PRN Rx #:[id number] Zosyn 2.25 GM Premix 50 ML @ 100 / 100 50 / 50 50 / 50 100 mls/hr IV.SIG Q8H [place] Rx#: [id number] Flagyl 500 MG Inj 100 ML @ 100 100 / 100 200 / 200 100 / 100 mls/hr IV.SIG Q8H [place] Rx#: [id number] Oral 960 / 960 100 / 100 Anesthesia Amount 40 / 40 Output: Urine Amount (Catheter) 300 / 300 200 / 200 Indwelling Urethral Catheter 300 / 300 200 / 200 Stool Amount (Stoma) 350 / 350 Right Lower Abdomen 350 / 350 Other: Date of Last Bowel Movement 01/12/18 01/14/18 01/14/18 - Urinary Catheter Management Indwelling Urethral Catheter Cath placed during this visit: no <Layne Herring - Last Filed: 01/14/18 14:46> Results - Labs CBC & Chem 7: 01/14/18 06:00 01/14/18 06:00 Laboratory Results - last 24 hr 01/13/18 01/13/18 01/14/18 16:12 17:30 00:10 WBC RBC Hgb Hct MCV MCH MCHC RDW Plt Count MPV APTT 88.1 H D 73.1 H Sodium Potassium Chloride Carbon Dioxide Anion Gap BUN Creatinine Estimated GFR POC Glucose 132 H Random Glucose Calcium Phosphorus Albumin 01/14/18 01/14/18 01/14/18 06:00 06:00 06:00 WBC 6.8 RBC 2.67 L Hgb 8.8 L Hct 26.7 L MCV 100.1 H MCH 32.9 MCHC 32.8 RDW 18.7 H Plt Count 48 L MPV 9.3 APTT 96.8 H* D Sodium 134 L Potassium 4.0 Chloride 103 Carbon Dioxide 19.2 L Anion Gap 12 BUN 48 H Creatinine 5.60 H Estimated GFR 7 L POC Glucose Random Glucose 82 Calcium 8.0 L Phosphorus 3.1 Albumin 1.5 L 01/14/18 10:20 WBC RBC Hgb Hct MCV MCH MCHC RDW Plt Count MPV APTT 45.5 H D Sodium Potassium Chloride Carbon Dioxide Anion Gap BUN Creatinine Estimated GFR POC Glucose Random Glucose Calcium Phosphorus Albumin Microbiology 01/11/18 08:43 Blood - Peripheral Aerobic Blood Culture - Preliminary No growth in 3 days 01/11/18 08:43 Blood - Peripheral Anaerobic Blood Culture - Preliminary No growth in 3 days 01/11/18 08:35 Blood - Peripheral Aerobic Blood Culture - Preliminary No growth in 3 days 01/11/18 08:35 Blood - Peripheral Anaerobic Blood Culture - Preliminary No growth in 3 days <Shaunna Castle - Last Filed: 01/14/18 11:56> - Labs CBC & Chem 7: 01/14/18 06:00 01/14/18 06:00 Laboratory Results - last 24 hr 01/13/18 01/13/18 01/14/18 16:12 17:30 00:10 WBC RBC Hgb Hct MCV MCH MCHC RDW Plt Count MPV APTT 88.1 H D 73.1 H Sodium Potassium Chloride Carbon Dioxide Anion Gap BUN Creatinine Estimated GFR POC Glucose 132 H Random Glucose Calcium Phosphorus Albumin 01/14/18 01/14/18 01/14/18 06:00 06:00 06:00 WBC 6.8 RBC 2.67 L Hgb 8.8 L Hct 26.7 L MCV 100.1 H MCH 32.9 MCHC 32.8 RDW 18.7 H Plt Count 48 L MPV 9.3 APTT 96.8 H* D Sodium 134 L Potassium 4.0 Chloride 103 Carbon Dioxide 19.2 L Anion Gap 12 BUN 48 H Creatinine 5.60 H Estimated GFR 7 L POC Glucose Random Glucose 82 Calcium 8.0 L Phosphorus 3.1 Albumin 1.5 L 01/14/18 01/14/18 10:20 12:41 WBC RBC Hgb Hct MCV MCH MCHC RDW Plt Count MPV APTT 45.5 H D Sodium Potassium Chloride Carbon Dioxide Anion Gap BUN Creatinine Estimated GFR POC Glucose 71 Random Glucose Calcium Phosphorus Albumin Microbiology 01/11/18 08:43 Blood - Peripheral Aerobic Blood Culture - Preliminary No growth in 3 days 01/11/18 08:43 Blood - Peripheral Anaerobic Blood Culture - Preliminary No growth in 3 days 01/11/18 08:35 Blood - Peripheral Aerobic Blood Culture - Preliminary No growth in 3 days 01/11/18 08:35 Blood - Peripheral Anaerobic Blood Culture - Preliminary No growth in 3 days <Layne Herring - Last Filed: 01/14/18 14:46> Assessment and Plan - Plan Assessment: - Diarrhea- Pt with history of perforated diverticulum S/P colostomy S/P reversal, began having abdominal pains and issues with BM so sounds like she had a laparoscopy requiring adhesiolysis and 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 Pt normally with loose stools but states they have been increasingly watery over the past few days. Denies any change in amount of stool. Also, had one episode of passing stool through her rectum, states has had isolated episodes of this, last one was 2 months ago. (Surgeries done by [facility] Dr. Case, at [facility]) Last colonoscopy 10 years ago prior to ileostomy. CT abdomen and pelvis WO IV contrast Smooth margin low density area in the presacral soft tissues could represent postsurgical change, fluid, or possibly abscess. There is no induration of the surrounding soft tissues. No dilated loops of small or large bowel C. Diff and enteric pathogens negative. - Dysphagia worse with meats and pills- states feels like her food gets stuck and occasional regurgitation of the food Last EGD with dilatation over ten years ago - Nausea, denies emesis- states this is not a new symptom and that she relates her intermittent nausea to having a sensitive stomach - Sepsis- recent AVG placement- ID following- source of infection AVG vs GI- Pt on Levophed for blood pressure support. Zosyn, Flagyl, Vancomycin - ESRD on HD Procedures: On upper endoscopy she has severe esophageal stricture status post dilation with a balloon, she also has severe esophagitis biopsy was done Ileoscopy was normal Flexible sigmoidoscopy showed some irritation possible proctitis secondary to colon resection biopsy was done (01/14) Pt reports continued loose green stool from ileostomy. No continued stool from rectum. Pt reports sore throat today and had trouble swallowing her pills this morning. Recommend No NSAIDs Soft diet Protonix 40 mg daily Repeat EGD in 5-6 weeks Follow-up biopsies GI will sign off, have pt follow up with GI after DC Pt has been seen and examined by myself and Dr. Herring and this note is written on his behalf <Shaunna Castle - Last Filed: 01/14/18 11:56> - Plan Patient was seen and examined, agree with above note, patient is doing better, no pain at this time some mild discomfort, no diarrhea, we will follow-up as needed, she will need endoscopy 5-6 weeks this can be done as an outpatient <Layne Herring - Last Filed: 01/14/18 14:46>
[2018-01-14] MEDS: Vancomycin Inj 1,000 MG in Sodium Chlor 0.9% Inj 250 ML IV.SIG SCH (13:54)
[2018-01-14] MEDS: Heparin 10,000 UNITS/10 ML Vial (for IV use) OTHER PRN (13:54)
--- NOTE | 2018-01-14 14:25 | P.PNCC ---
Subjective Subjective Remarks/Hospital Course: History of Present Illness: This is a 77 year female with a PMH of end-stage renal disease on dialysis( Saturday) HTN, H/o Perforated Diverticulitis s/p Colostomy, with reversal and then ileostomy. She recently had AVG placement by Dr. Ventura on 01/01/18. Patient presented to the [facility] emergency department on 01/10/2018 for left upper extremity swelling and was transferred to [facility] for admission. She also had generalized weakness and diarrhea from rectum despite ileostomy. (C diff cultures sent in [place] pending). Initially patient was hypotensive and received multiple fluid boluses with improvement in blood pressure has been hypotensive w/ BP 81/45, HR 89, O2 sat 100% on RA, Afebrile. Seen by Dr. Means, no indication for surgical intervention at this time. Patient was placed in the ICU for persistent hypotension, overnight received 1.5L NS boluses again for hypotension. Despite fluid boluses map remained in low 50s indicating persistent worsening septic shock and critical care medicine was consulted. Patient is currently receiving vancomycin and Zosyn renally dosed. I have instructed RN to give 500 mL fluid bolus followed by starting Levophed. Patient had a fever up to 102.7. On my exam left lower surrounding the AV graft incision appears red and warm and swollen. This appears to be the source of infection and I have discussed with Dr. Antoine who will evaluate the patient again. Get ID consult. Continue current antibiotics. Patient also gave a history of pulmonary embolism had been on Coumadin for last 10 years also , recently 2 months ago switched to Eliquis 01/12/18: Patient remains critical. Remains on Levophed at 4 mcg/min. T-max 101.8 currently fever trending down. WBC count is 17.1. CT abdomen showed some fluid collection in the presacral soft tissues. Source of infection most likely still appears to be infected AV graft. I have discussed with vascular surgery Dr. Antoine. He indicates no surgery at this time as the swelling has decreased slightly and cellulitis seems to be improving, he wants to put every attempt to salvage the graft if possible. Blood cultures remains negative so far, continue IV vancomycin and Zosyn and Flagyl. Infectious disease and vascular surgery following. 01/13: Afebrile. Leukocytosis has resolved. Recent diarrhea appears to have largely resolved. Left arm remains edematous. 01/14: Left arm edema improved today. Distal circulation intact. Objective Vital Signs / I&O: Vital Signs 01/13/18 16:00 01/13/18 16:36 01/13/18 19:34 Temperature 98.8 F Pulse Rate 100 H Respiratory Rate 24 15 Blood Pressure 103/55 L Pulse Oximetry 100 100 01/13/18 20:00 01/14/18 00:00 01/14/18 04:00 Temperature 99.5 F 99.9 F H 98.1 F Pulse Rate 106 H 101 H 90 Respiratory Rate 23 18 14 Blood Pressure 106/82 109/56 L 107/55 L Pulse Oximetry 01/14/18 08:00 01/14/18 08:09 01/14/18 12:00 Temperature Pulse Rate 90 Respiratory Rate 20 Blood Pressure Pulse Oximetry 100 01/14/18 12:34 Temperature Pulse Rate Respiratory Rate 20 Blood Pressure Pulse Oximetry Intake & Output 01/13/18 01/14/18 01/14/18 18:59 06:59 18:59 Intake Total 1200 / 1200 1390 / 1390 150 / 150 Output Total 300 / 300 550 / 550 Balance 900 / 900 840 / 840 150 / 150 Weight 66.2 kg Intake: IV 200 / 200 1290 / 1290 150 / 150 D5W/Normal Saline Inj 1,000 ML 540 / 540 @ 42 mls/hr IV.CONT .[id number] [place] Rx#:[id number] Heparin/D5W 25,000 U/250 mL 25, 500 / 500 000 unit In 250 ml @ Per Protocol IV.CONT TITRATE PRN Rx #:[id number] Zosyn 2.25 GM Premix 50 ML @ 100 / 100 50 / 50 50 / 50 100 mls/hr IV.SIG Q8H [place] Rx#: [id number] Flagyl 500 MG Inj 100 ML @ 100 100 / 100 200 / 200 100 / 100 mls/hr IV.SIG Q8H [place] Rx#: [id number] Oral 960 / 960 100 / 100 Anesthesia Amount 40 / 40 Output: Urine Amount (Catheter) 300 / 300 200 / 200 Indwelling Urethral Catheter 300 / 300 200 / 200 Stool Amount (Stoma) 350 / 350 Right Lower Abdomen 350 / 350 Other: Date of Last Bowel Movement 01/12/18 01/14/18 01/14/18 Result Diagrams: 01/14/18 06:00 01/14/18 06:00 Objective Remarks: GENERAL: Pleasant elderly white female critically ill hypotensive, septic HEENT: PERRLA, EOMI. No scleral icterus or conjunctival pallor. No lid lag or facial droop. CARDIOVASCULAR: Regular rate and rhythm. No chest tenderness to palpation. Neck veins are full, not distended. RESPIRATORY: No obvious rhonchi or wheezing. Clear to auscultation. Breath sounds equal bilaterally. Comfortable. GASTROINTESTINAL: Abdomen soft, non-tender, nondistended. BS normal. Ileotomy present with greenish output MUSCULOSKELETAL: Left arm soft tissue at AV graft is less erythematous. No discharge at site of incision. NEUROLOGICAL: Awake, alert and oriented x4. No focal neurologic deficits. Follows commands 4 Assessment and Plan - Assessment and Plan Plan: System based assessment and plan: NEURO: -Minimize sedation -Mild lethargy most likely secondary to severe sepsis, resolving. RESP: History of DVT/pulmonary embolism -Currently Eliquis is placed on hold in anticipation of invasive procedures, start IV Heparin -Her pulmonary embolism and DVT was postoperative and was about 10 years ago -DuoNeb every 6 hours scheduled and as needed -Aggressive pulmonary toilet CV: Septic shock Lactic acidosis -s/p Normal saline IV fluids 2L bolus -Levophed to keep map above 65 -Hold home antihypertensives (on metoprolol 50 mg twice daily at home) -Trend lactic acid GI: History of colostomy with reversal, followed by ileostomy Presacral fluid collection -N.p.o., IV famotidine, start renal diet -Ileostomy care -GI consulted for small presacral fluid collection and also patient complained about diarrhea from the rectum -If sepsis not improving, IR drainage of fluid collection may be required : ESRD -Patient has end-stage renal disease and is on Saturday, , Saturday schedule for dialysis -Nephrology Dr. 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 Arash betancourt for vascular, patient may need surgical debridement, at this time he recommends continuing IV antibiotics to salvage the graft -F/U Blood cultures, C Diff -RUE venous US ordered -ID Dr. Harper HEME: Chronic apixaban use -Monitor CBC, coags -Hold apixaban, start IV heparin in anticipation of possible surgical intervention ENDO: -Electrolyte replacement per protocol PROPH: -Bilateral lower extremity SCDs. Famotidine. hold apixaban, start IV heparin for possible surgical intervention LINES: -Utilize peripheral IVs, right subclavian central line placed 01/11/2018 Overall impression: Patient with resolving sepsis pattern. Etiology unclear, pathological diarrhea versus left arm infection. She has responded well to antibiotics and hydration therapy. Weaned off all vasopressors.
--- NOTE | 2018-01-14 14:37 | P.PNID ---
Subjective Remarks: sigmoidoscopy with proctitis resolution of diarrhea LUE pain and swelling improved co L foot pain and non helaing small wound x 2 mos Antibiotics: vanco flagyl zosyn Allergies/Adverse Reactions: Allergies Sulfa (Sulfonamide Antibiotics) Allergy (Verified 01/10/18 12:23) Swelling Objective Vital Signs 01/13/18 16:00 01/13/18 16:36 01/13/18 19:34 Temperature 98.8 F Pulse Rate 100 H Respiratory Rate 24 15 Blood Pressure 103/55 L Pulse Oximetry 100 100 01/13/18 20:00 01/14/18 00:00 01/14/18 04:00 Temperature 99.5 F 99.9 F H 98.1 F Pulse Rate 106 H 101 H 90 Respiratory Rate 23 18 14 Blood Pressure 106/82 109/56 L 107/55 L Pulse Oximetry 01/14/18 08:00 01/14/18 08:09 01/14/18 12:00 Temperature Pulse Rate 90 Respiratory Rate 20 Blood Pressure Pulse Oximetry 100 01/14/18 12:34 Temperature Pulse Rate Respiratory Rate 20 Blood Pressure Pulse Oximetry Intake & Output 01/13/18 01/14/18 01/14/18 18:59 06:59 18:59 Intake Total 1200 / 1200 1390 / 1390 150 / 150 Output Total 300 / 300 550 / 550 Balance 900 / 900 840 / 840 150 / 150 Weight 66.2 kg Intake: IV 200 / 200 1290 / 1290 150 / 150 D5W/Normal Saline Inj 1,000 ML 540 / 540 @ 42 mls/hr IV.CONT .[id number] [place] Rx#:[id number] Heparin/D5W 25,000 U/250 mL 25, 500 / 500 000 unit In 250 ml @ Per Protocol IV.CONT TITRATE PRN Rx #:[id number] Zosyn 2.25 GM Premix 50 ML @ 100 / 100 50 / 50 50 / 50 100 mls/hr IV.SIG Q8H [place] Rx#: [id number] Flagyl 500 MG Inj 100 ML @ 100 100 / 100 200 / 200 100 / 100 mls/hr IV.SIG Q8H [place] Rx#: [id number] Oral 960 / 960 100 / 100 Anesthesia Amount 40 / 40 Output: Urine Amount (Catheter) 300 / 300 200 / 200 Indwelling Urethral Catheter 300 / 300 200 / 200 Stool Amount (Stoma) 350 / 350 Right Lower Abdomen 350 / 350 Other: Date of Last Bowel Movement 01/12/18 01/14/18 01/14/18 01/11/18 08:43 Blood - Peripheral Aerobic Blood Culture - Preliminary No growth in 3 days 01/11/18 08:43 Blood - Peripheral Anaerobic Blood Culture - Preliminary No growth in 3 days 01/11/18 08:35 Blood - Peripheral Aerobic Blood Culture - Preliminary No growth in 3 days 01/11/18 08:35 Blood - Peripheral Anaerobic Blood Culture - Preliminary No growth in 3 days Lab - Hematology Results 01/13/18 01/14/18 04:10 06:00 WBC 10.2 6.8 RBC 2.78 L 2.67 L Hgb 9.4 L 8.8 L Hct 27.7 L 26.7 L MCV 99.7 100.1 H MCH 33.7 32.9 MCHC 33.8 32.8 RDW 18.6 H 18.7 H Plt Count 55 L D 48 L MPV 9.1 9.3 Lab - Chemistry Results 01/12/18 01/13/18 01/13/18 21:25 04:10 16:12 Sodium 135 L Potassium 4.0 Chloride 103 Carbon Dioxide 23.6 Anion Gap 8 BUN 44 H Creatinine 5.15 H Estimated GFR 8 L POC Glucose 85 132 H Random Glucose 94 Calcium 8.4 L Phosphorus Total Bilirubin 0.4 AST 11 L ALT 15 Alkaline Phosphatase 130 H Total Protein 5.1 L D Albumin 1.7 L 01/14/18 01/14/18 06:00 12:41 Sodium 134 L Potassium 4.0 Chloride 103 Carbon Dioxide 19.2 L Anion Gap 12 BUN 48 H Creatinine 5.60 H Estimated GFR 7 L POC Glucose 71 Random Glucose 82 Calcium 8.0 L Phosphorus 3.1 Total Bilirubin AST ALT Alkaline Phosphatase Total Protein Albumin 1.5 L Imaging: ITS Impressions Abdomen/Pelvis CT 01/11/18 00:00 CONCLUSION: 1. Smooth margin low density area in the presacral soft tissues could represent postsurgical change, fluid, or possibly abscess. There is no induration of the surrounding soft tissues. 2. No dilated loops of small or large bowel. 3. Mild bibasilar atelectasis without evidence of pleural effusion. Venous Doppler Study 01/11/18 07:38 CONCLUSION: 1. No deep venous thrombosis in the visualized veins. 2. AV fistula is patent. Chest X-Ray 01/13/18 06:00 CONCLUSION: 1. Developing left basilar atelectasis. Lungs are otherwise clear. 2. Stable position of the left IJ dialysis type catheter and right subclavian central venous catheter. Physical Exam: GENERAL: SKIN: Warm and dry. HEAD: Atraumatic. Normocephalic. EYES: Pupils equal and round. No scleral icterus. No injection or drainage. ENT: No nasal bleeding or discharge. Mucous membranes pink and moist. NECK: Trachea midline. No JVD. CARDIOVASCULAR: Regular rate and rhythm. RESPIRATORY: No accessory muscle use. Clear to auscultation. Breath sounds equal bilaterally. GASTROINTESTINAL: Abdomen soft, non-tender, distended. Hepatic and splenic margins not palpable. MUSCULOSKELETAL: Extremities without clubbing, cyanosis, Much improved edema and erythema of LUE. NEUROLOGICAL: Awake and alert. No obvious cranial nerve deficits. Motor grossly within normal limits. Five out of 5 muscle strength in the arms and legs. Normal speech. PSYCHIATRIC: Appropriate mood and affect; insight and judgment normal. Assessment and Plan - Plan Sepsis: fever, hypotension, leukocytosis > 15, lactic acidosis (2.7) imroved clinically leukocytosis resolved source is gualberto AQU[place] where she has a recent fistula, however other source can be a culprit, such as GI Proctitis on sigmoidoscopy cont zosyn, dc flagyl cont vanco fu blood clx untill final marina BIGGS
[2018-01-14] MEDS: Morphine Inj 4 MG/ML Vial IV.PUSH PRN ×2 (15:13→20:37)
--- NOTE | 2018-01-14 15:14 | P.PNCA ---
- Note Subjective/Hospital Course: The swelling over the left AV graft site is somewhat decreased but still present. Cellulitis is decreased and the redness is definitely diminished Patient is hemodynamically improved Considering the patient is better and swelling is decreased will not resort to drainage or surgery at this time however if this does not improve significantly in next 24-48 hours patient will need exploration of this and possible drainage Unfortunately, at that time the AV graft may be doomed to be sacrificed for repeated opening of the graft usually does not end up well as far as preserving the access Therefore I believe this should be the last resort and hence the hesitation to open the graft site as long as patient is doing better 01/14/2018 I have been looking daily the patient for last few days and swelling has been gradually going down on the left upper arm AV graft site White count has been also decreasing and left shift is resolving. Patient is currently afebrile There is still some redness over the area but certainly much less than before and I do not feel any fluctuant collections at least not close to the skin. At this point I ordered a CT scan of the left arm and if there is still a collection this can be aspirated and if pus is detected, will drain it, otherwise going to leave it alone. Objective: Vital Signs - 24 hr 01/13/18 16:00 01/13/18 16:36 01/13/18 19:34 Temperature 98.8 F Pulse Rate 100 H Respiratory Rate 24 15 Blood Pressure 103/55 L Pulse Oximetry 100 100 01/13/18 20:00 01/14/18 00:00 01/14/18 04:00 Temperature 99.5 F 99.9 F H 98.1 F Pulse Rate 106 H 101 H 90 Respiratory Rate 23 18 14 Blood Pressure 106/82 109/56 L 107/55 L Pulse Oximetry 01/14/18 08:00 01/14/18 08:09 01/14/18 12:00 Temperature 98.4 F 98.0 F Pulse Rate 94 H 88 Respiratory Rate 17 18 Blood Pressure 107/54 L 112/56 L Pulse Oximetry 99 100 100 01/14/18 12:34 Temperature Pulse Rate Respiratory Rate 20 Blood Pressure Pulse Oximetry Labs: Laboratory Results - last 12 hr 01/14/18 01/14/18 01/14/18 06:00 06:00 06:00 WBC 6.8 RBC 2.67 L Hgb 8.8 L Hct 26.7 L MCV 100.1 H MCH 32.9 MCHC 32.8 RDW 18.7 H Plt Count 48 L MPV 9.3 APTT 96.8 H* D Sodium 134 L Potassium 4.0 Chloride 103 Carbon Dioxide 19.2 L Anion Gap 12 BUN 48 H Creatinine 5.60 H Estimated GFR 7 L POC Glucose Random Glucose 82 Calcium 8.0 L Phosphorus 3.1 Albumin 1.5 L 01/14/18 01/14/18 10:20 12:41 WBC RBC Hgb Hct MCV MCH MCHC RDW Plt Count MPV APTT 45.5 H D Sodium Potassium Chloride Carbon Dioxide Anion Gap BUN Creatinine Estimated GFR POC Glucose 71 Random Glucose Calcium Phosphorus Albumin Result Diagrams: 01/14/18 06:00 01/14/18 06:00
--- NOTE | 2018-01-14 19:16 | CT ---
EXAM DATE: 01/14/2018 7:01 PM EDT AGE/SEX: 77 years / Female INDICATIONS: Left arm swelling post AV graft. CLINICAL DATA: This is the patient's initial encounter. Patient reports that signs and symptoms have been present for 1 day and indicates a pain score of 7/10. MEDICAL/SURGICAL HISTORY: Hypertension. Deep venous thrombosis. Hysterectomy. RADIATION DOSE: 18.75 CTDI (mGy) COMPARISON: No prior exams available for comparison. TECHNIQUE: Multiple contiguous axial images were acquired using a multi-row detector CT scanner. Mu ltiplanar reconstruction was performed in the sagittal and coronal planes. Using automated exposure control and adjustment of the mA and/or kV according to patient size, radiation dose was kept as low as reasonably achievable to obtain optimal diagnostic quality images. DICOM format image data is trina ilable electronically for review and comparison. FINDINGS: Bones: The bony structures about the elbow are in normal alignment. The distal humerus and proximal radius and ulna are intact. No fracture is seen. Joints: No significant arthropathy or bony hypertrophy is seen. Soft Tissues: There is a graft seen in the inferior upper arm region. No comment can be made about i ts patency on this noncontrast CT examination. There is edema within the soft tissues at the upper ar m and forearm regions. Other: No foreign bodies seen. CONCLUSION: 1. Soft tissue swelling within the subcutaneous fat at the upper arm and forearm. 2. Vascular graft seen in the anterior medial upper arm. Electronically signed by: Amos Taylor MD 01/14/2018 7:14 PM EDT
[2018-01-15] MEDS: Morphine Inj 4 MG/ML Vial IV.PUSH PRN (00:08)
[2018-01-15] MEDS: Piperacil/Tazo 2.25 GM Premix 50 ML IV.SIG SCH ×3 (01:38→19:00)
[2018-01-15] MEDS: Dextrose 5%/NaCl 0.9% Inj 1,000 ML IV.CONT SCH ×3 (02:41→02:45)
[2018-01-15 06:28] LABS: Albumin 1.6 g/dL (3.4-5.0); Calcium 8.1 mg/dL (8.5-10.1); Carbon Dioxide 27.1 meq/L (21.0-32.0); Potassium 3.8 meq/L (3.5-5.1)
[2018-01-15] MEDS: Chlorhexidine Gluconate 2% 1 Pack (2 Cloths) TOPICAL SCH (07:06)
[2018-01-15] MEDS: Mupirocin 2% Nasal Oint Topical Syringe NASAL SCH ×2 (09:37→20:51)
[2018-01-15] MEDS: Senna/Docusate Sodium 8.6/50 MG Tablet PO SCH ×2 (09:37→20:51)
[2018-01-15] MEDS: Famotidine PF Inj 20 MG/2 ML Vial IV.PUSH SCH (09:38)
--- NOTE | 2018-01-15 10:28 | P.PNCV ---
- Note Subjective/Hospital Course: The swelling over the left AV graft site is somewhat decreased but still present. Cellulitis is decreased and the redness is definitely diminished Patient is hemodynamically improved Considering the patient is better and swelling is decreased will not resort to drainage or surgery at this time however if this does not improve significantly in next 24-48 hours patient will need exploration of this and possible drainage Unfortunately, at that time the AV graft may be doomed to be sacrificed for repeated opening of the graft usually does not end up well as far as preserving the access Therefore I believe this should be the last resort and hence the hesitation to open the graft site as long as patient is doing better 01/14/2018 I have been looking daily the patient for last few days and swelling has been gradually going down on the left upper arm AV graft site White count has been also decreasing and left shift is resolving. Patient is currently afebrile There is still some redness over the area but certainly much less than before and I do not feel any fluctuant collections at least not close to the skin. At this point I ordered a CT scan of the left arm and if there is still a collection this can be aspirated and if pus is detected, will drain it, otherwise going to leave it alone. 01/15/18 Swelling L arm decreased. Rubor essentially gone. WBC normal and left shift resolved. No fluctuance noted. CT does not reveal any collections. Still good flow by Doppler. At this point I do not see a reason to drain or explore the graft area. Objective: Vital Signs - 24 hr 01/14/18 12:00 01/14/18 12:34 01/14/18 16:00 Temperature 98.0 F 98.9 F Pulse Rate 88 108 H Respiratory Rate 18 20 24 Blood Pressure 112/56 L 125/58 L Pulse Oximetry 100 100 01/14/18 20:00 01/14/18 20:15 01/15/18 00:00 Temperature 100.0 F H Pulse Rate 125 H Respiratory Rate 25 H 20 Blood Pressure 148/90 H Pulse Oximetry 100 99 01/15/18 04:00 Temperature Pulse Rate 102 H Respiratory Rate 20 Blood Pressure 140/64 Pulse Oximetry 100 Labs: Laboratory Results - last 12 hr 01/14/18 01/15/18 01/15/18 23:00 05:15 05:15 APTT 43.1 H 49.9 H Sodium 136 Potassium 3.8 Chloride 101 Carbon Dioxide 27.1 Anion Gap 8 BUN 27 H Creatinine 3.71 H Estimated GFR 12 L POC Glucose Random Glucose 103 Calcium 8.1 L Phosphorus 2.0 L D Albumin 1.6 L 01/15/18 09:56 APTT Sodium Potassium Chloride Carbon Dioxide Anion Gap BUN Creatinine Estimated GFR POC Glucose 100 Random Glucose Calcium Phosphorus Albumin Result Diagrams: 01/14/18 06:00 01/15/18 05:15
--- NOTE | 2018-01-15 10:37 | P.PNIM ---
Subjective Interval history: Patient still reports left arm discomfort but stated the pain and swelling improved. Physical Exam Vital signs: Vital Signs 01/14/18 12:00 01/14/18 12:34 01/14/18 16:00 Temperature 98.0 F 98.9 F Pulse Rate 88 108 H Respiratory Rate 18 20 24 Blood Pressure 112/56 L 125/58 L Pulse Oximetry 100 100 01/14/18 20:00 01/14/18 20:15 01/15/18 00:00 Temperature 100.0 F H Pulse Rate 125 H Respiratory Rate 25 H 20 Blood Pressure 148/90 H Pulse Oximetry 100 99 01/15/18 04:00 Temperature Pulse Rate 102 H Respiratory Rate 20 Blood Pressure 140/64 Pulse Oximetry 100 Intake & Output 01/14/18 01/15/18 01/15/18 18:59 06:59 18:59 Intake Total 1410 / 1410 1050 / 1050 Output Total 2700 / 2700 650 / 650 Balance -1290 / -1290 400 / 400 Weight 66.9 kg Intake: IV 450 / 450 50 / 50 Zosyn 2.25 GM Premix 50 ML @ 100 / 100 50 / 50 100 mls/hr IV.SIG Q8H [facility] Rx#: [id number] Vancomycin Inj 1,000 MG In NS 250 / 250 Inj 250 ML @ 250 mls/hr IV.SIG WITH DIALYSIS [place] Rx#:[id number] Flagyl 500 MG Inj 100 ML @ 100 100 / 100 mls/hr IV.SIG Q8H [facility] Rx#: [id number] Oral 960 / 960 1000 / 1000 Output: Stool 250 / 250 Hemodialysis Amount 2200 / 2200 Urine Amount (Catheter) 250 / 250 300 / 300 Indwelling Urethral Catheter 250 / 250 300 / 300 Stool Amount (Stoma) 350 / 350 Right Lower Abdomen 350 / 350 Other: Date of Last Bowel Movement 01/14/18 01/14/18 Narrative: GENERAL: This is a well-nourished, well-developed patient, in no apparent distress. CARDIOVASCULAR: Normal rate and regular rhythm without murmurs, gallops, or rubs. RESPIRATORY: Good respiratory efforts. Breath sounds equal and clear to auscultation bilaterally. MUSCULOSKELETAL: Left AV graft present. There is swelling around it with minimal erythema. Warm. No draining wounds. NEUROLOGICAL: Awake, alert and oriented x4. No focal neurologic deficits. Follows commands 4 - Urinary Catheter Management Indwelling Urethral Catheter Cath placed during this visit: yes Reason for continuing: Hourly intake/output Insertion date: 01/10/18 Insertion time: 20:00 Results - Labs CBC & Chem 7: 01/14/18 06:00 01/15/18 05:15 Laboratory Results - last 24 hr 01/14/18 01/14/18 01/14/18 10:20 12:41 15:50 APTT 45.5 H D 37.3 H Sodium Potassium Chloride Carbon Dioxide Anion Gap BUN Creatinine Estimated GFR POC Glucose 71 Random Glucose Calcium Phosphorus Albumin 01/14/18 01/14/18 01/15/18 18:03 23:00 05:15 APTT 43.1 H Sodium 136 Potassium 3.8 Chloride 101 Carbon Dioxide 27.1 Anion Gap 8 BUN 27 H Creatinine 3.71 H Estimated GFR 12 L POC Glucose 102 Random Glucose 103 Calcium 8.1 L Phosphorus 2.0 L D Albumin 1.6 L 01/15/18 01/15/18 05:15 09:56 APTT 49.9 H Sodium Potassium Chloride Carbon Dioxide Anion Gap BUN Creatinine Estimated GFR POC Glucose 100 Random Glucose Calcium Phosphorus Albumin Microbiology 01/11/18 08:43 Blood - Peripheral Aerobic Blood Culture - Preliminary No growth in 3 days 01/11/18 08:43 Blood - Peripheral Anaerobic Blood Culture - Preliminary No growth in 3 days 01/11/18 08:35 Blood - Peripheral Aerobic Blood Culture - Preliminary No growth in 3 days 01/11/18 08:35 Blood - Peripheral Anaerobic Blood Culture - Preliminary No growth in 3 days - Imaging Impressions [place] CT 01/14/18 00:00 CONCLUSION: 1. Soft tissue swelling within the subcutaneous fat at the upper arm and forearm. 2. Vascular graft seen in the anterior medial upper arm. Assessment and Plan - Assessment (1) AVF (arteriovenous fistula) Code(s): I77.0 - Arteriovenous fistula, acquired Status: Acute (2) ESRD on dialysis Code(s): N18.6 - End stage renal disease; Z99.2 - Dependence on renal dialysis Status: Chronic (3) Hypotension Code(s): I95.9 - Hypotension, unspecified Status: Acute (4) Hypoglycemia Code(s): E16.2 - Hypoglycemia, unspecified Status: Acute (5) Diarrhea Code(s): R19.7 - Diarrhea, unspecified Status: Inactive - Plan 77-year-old female admitted with septic shock likely secondary to left AV graft infection. Treated conservatively with antibiotics and hydration. Sepsis resolving. Patient was weaned off vasopressors. Care transferred to the hospitalist service. Septic shock Probable AV graft infection -Infectious disease following. Currently on vancomycin and Zosyn. -Dr. Arash betancourt for vascular, at this time he recommends continuing IV antibiotics to salvage the graft -Blood cultures negative today. - Septic shock resolved. Off pressors. History of DVT/pulmonary embolism -Currently Eliquis is placed on hold in case procedure is needed. Dr. Antoine to reevaluate today. CT shows swelling but no fluid collection. - If no plan surgical procedures, plan to stop Heparin and resume Eliquis. -Her pulmonary embolism and DVT was postoperative and was about 10 years ago -DuoNeb every 6 hours scheduled and as needed History of colostomy with reversal, followed by ileostomy Presacral fluid collection - GI following. 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 Yanez is following Discharge Planning: OK to transfer to floor.
[2018-01-15] MEDS: Heparin Drip 25,000 UNIT/250 ML BAG IV.CONT PRN (14:50)
[2018-01-15] MEDS: Acetaminophen 325 MG Tablet PO PRN (14:53)
[2018-01-16] MEDS: Piperacil/Tazo 2.25 GM Premix 50 ML IV.SIG SCH ×3 (01:33→17:45)
[2018-01-16] MEDS: Chlorhexidine Gluconate 2% 1 Pack (2 Cloths) TOPICAL SCH (03:50)
[2018-01-16 05:25] LABS: Hematocrit 27.6 % (35.0-46.0); Hemoglobin 9.2 gm/dL (11.6-15.3); Mean Corpuscular HGB Conc 33.3 % (32.0-36.0); Mean Corpuscular Hemoglobin 32.8 pg (27.0-34.0); Mean Corpuscular Volume 98.5 fL (80.0-100.0); Mean Platelet Volume 9.8 fL (7.0-11.0); Platelet Count 34 th/mm3 (150-450); Red Cell Distribution Width 18.4 % (11.6-17.2)
[2018-01-16 05:49] LABS: Albumin 1.7 g/dL (3.4-5.0); Calcium 8.4 mg/dL (8.5-10.1); Carbon Dioxide 22.8 meq/L (21.0-32.0); Phosphorus 1.8 mg/dL (2.5-4.9)
[2018-01-16] MEDS: Senna/Docusate Sodium 8.6/50 MG Tablet PO SCH ×2 (08:09→20:02)
[2018-01-16] MEDS: Morphine Inj 4 MG/ML Vial IV.PUSH PRN (12:14)
--- NOTE | 2018-01-16 15:27 | P.PNIM ---
Subjective Interval history: Patient reports she is feeling slightly better today. Left arm pain is improved but she does not note any significant improvement in swelling. Physical Exam Vital signs: Vital Signs 01/15/18 16:00 01/15/18 20:00 01/15/18 21:15 Temperature 97.9 F 97.8 F Pulse Rate 98 H 98 H Respiratory Rate 20 20 Blood Pressure 135/61 133/61 Pulse Oximetry 100 100 97 01/16/18 00:00 01/16/18 04:00 01/16/18 08:00 Temperature 97.6 F 97.7 F 97.9 F Pulse Rate 99 H 95 H 96 H Respiratory Rate 20 20 20 Blood Pressure 150/66 H 143/64 H 118/63 Pulse Oximetry 96 96 01/16/18 08:15 01/16/18 12:00 Temperature 97.9 F Pulse Rate 104 H Respiratory Rate 18 Blood Pressure 110/53 L Pulse Oximetry 95 Intake & Output 01/15/18 01/16/18 01/16/18 18:59 06:59 18:59 Intake Total 1050 / 1050 560 / 560 50 / 50 Output Total 675 / 675 450 / 450 1999 / 1999 Balance 375 / 375 110 / 110 -1950 / -1950 Weight 74.2 kg Intake: IV 300 / 300 100 / 100 50 / 50 Heparin/D5W 25,000 U/250 mL 25, 250 / 250 000 unit In 250 ml @ Per Protocol IV.CONT TITRATE PRN Rx #:[id number] Zosyn 2.25 GM Premix 50 ML @ 50 / 50 100 / 100 50 / 50 100 mls/hr IV.SIG Q8H [facility] Rx#: [id number] Oral 750 / 750 460 / 460 Output: Hemodialysis Amount 1999 Urine Amount (Catheter) 375 / 375 350 / 350 Indwelling Urethral Catheter 375 / 375 350 / 350 Stool Amount (Stoma) 300 / 300 100 / 100 Right Lower Abdomen 300 / 300 100 / 100 Other: Date of Last Bowel Movement 01/14/18 01/14/18 01/14/18 Narrative: GENERAL: This is a well-nourished, well-developed patient, in no apparent distress. CARDIOVASCULAR: Normal rate and regular rhythm without murmurs, gallops, or rubs. RESPIRATORY: Good respiratory efforts. Breath sounds equal and clear to auscultation bilaterally. MUSCULOSKELETAL: Left AV graft present. There is swelling around it with minimal erythema. Warm. No draining wounds. NEUROLOGICAL: Awake, alert and oriented x4. No focal neurologic deficits. Follows commands 4 - Urinary Catheter Management Indwelling Urethral Catheter Cath placed during this visit: yes, but has since been removed by the nurse Reason for continuing: Decision to DC catheter Insertion date: 01/10/18 Insertion time: 20:00 Removal date: 01/16/18 Removal time: 16:00 Results - Labs CBC & Chem 7: 01/16/18 05:05 01/16/18 05:05 Laboratory Results - last 24 hr 01/15/18 01/15/18 01/16/18 15:05 20:33 05:05 WBC RBC Hgb Hct MCV MCH MCHC RDW Plt Count MPV Sodium 133 L Potassium 4.0 Chloride 101 Carbon Dioxide 22.8 Anion Gap 9 BUN 36 H Creatinine 4.34 H Estimated GFR 10 L POC Glucose 119 H 175 H Random Glucose 118 H Calcium 8.4 L Phosphorus 1.8 L Albumin 1.7 L 01/16/18 01/16/18 05:05 14:02 WBC 6.0 RBC 2.80 L Hgb 9.2 L Hct 27.6 L MCV 98.5 MCH 32.8 MCHC 33.3 RDW 18.4 H Plt Count 34 L MPV 9.8 Sodium Potassium Chloride Carbon Dioxide Anion Gap BUN Creatinine Estimated GFR POC Glucose 100 Random Glucose Calcium Phosphorus Albumin Microbiology 01/11/18 08:43 Blood - Peripheral Aerobic Blood Culture - Final No growth in 5 days 01/11/18 08:43 Blood - Peripheral Anaerobic Blood Culture - Final No growth in 5 days 01/11/18 08:35 Blood - Peripheral Aerobic Blood Culture - Final No growth in 5 days 01/11/18 08:35 Blood - Peripheral Anaerobic Blood Culture - Final No growth in 5 days Assessment and Plan - Assessment (1) AVF (arteriovenous fistula) Code(s): I77.0 - Arteriovenous fistula, acquired Status: Acute (2) ESRD on dialysis Code(s): N18.6 - End stage renal disease; Z99.2 - Dependence on renal dialysis Status: Chronic (3) Hypotension Code(s): I95.9 - Hypotension, unspecified Status: Acute (4) Hypoglycemia Code(s): E16.2 - Hypoglycemia, unspecified Status: Acute (5) Diarrhea Code(s): R19.7 - Diarrhea, unspecified Status: Inactive - Plan 77-year-old female admitted with septic shock likely secondary to left AV graft infection. Treated conservatively with antibiotics and hydration. Sepsis resolving. Patient was weaned off vasopressors. Care transferred to the hospitalist service. Septic shock Probable AV graft infection -Infectious disease following. Currently on vancomycin and Zosyn. -Dr. Antoine following for vascular, at this time he recommends continuing IV antibiotics to salvage the graft -Blood cultures negative to date. - Septic shock resolved. Off pressors. History of DVT/pulmonary embolism -DW Dr. Antoine, Since there is no plan for surgical intervention, stop Heparin and resume Eliquis. -DuoNeb every 6 hours scheduled and as needed History of colostomy with reversal, followed by ileostomy Presacral fluid collection - GI following. 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 Yanez is following Thrombocytopenia: - Could be related to Sepsis. Continue to monitor closely Discharge Planning: OK to transfer to floor.
--- NOTE | 2018-01-16 16:48 | P.PNCV ---
- Note Subjective/Hospital Course: The swelling over the left AV graft site is somewhat decreased but still present. Cellulitis is decreased and the redness is definitely diminished Patient is hemodynamically improved Considering the patient is better and swelling is decreased will not resort to drainage or surgery at this time however if this does not improve significantly in next 24-48 hours patient will need exploration of this and possible drainage Unfortunately, at that time the AV graft may be doomed to be sacrificed for repeated opening of the graft usually does not end up well as far as preserving the access Therefore I believe this should be the last resort and hence the hesitation to open the graft site as long as patient is doing better 01/14/2018 I have been looking daily the patient for last few days and swelling has been gradually going down on the left upper arm AV graft site White count has been also decreasing and left shift is resolving. Patient is currently afebrile There is still some redness over the area but certainly much less than before and I do not feel any fluctuant collections at least not close to the skin. At this point I ordered a CT scan of the left arm and if there is still a collection this can be aspirated and if pus is detected, will drain it, otherwise going to leave it alone. 01/15/18 Swelling L arm decreased. Rubor essentially gone. WBC normal and left shift resolved. No fluctuance noted. CT does not reveal any collections. Still good flow by Doppler. At this point I do not see a reason to drain or explore the graft area. 01/16/2018 Swelling is significantly decreased from the arrival of the patient No fluctuance noted White count has normalized and left shift has resolved All the cultures are negative Exploring the graft I believe would be counterproductive at this time for swelling itself is not an indication for surgery May stop heparin and start patient on Eliquis as she was before Dr. Ventura will be back tomorrow Objective: Vital Signs - 24 hr 01/15/18 20:00 01/15/18 21:15 01/16/18 00:00 Temperature 97.8 F 97.6 F Pulse Rate 98 H 99 H Respiratory Rate 20 20 Blood Pressure 133/61 150/66 H Pulse Oximetry 100 97 96 01/16/18 04:00 01/16/18 08:00 01/16/18 08:15 Temperature 97.7 F 97.9 F Pulse Rate 95 H 96 H Respiratory Rate 20 20 Blood Pressure 143/64 H 118/63 Pulse Oximetry 96 95 01/16/18 12:00 Temperature 97.9 F Pulse Rate 104 H Respiratory Rate 18 Blood Pressure 110/53 L Pulse Oximetry Labs: Laboratory Results - last 12 hr 01/16/18 01/16/18 01/16/18 05:05 05:05 14:02 WBC 6.0 RBC 2.80 L Hgb 9.2 L Hct 27.6 L MCV 98.5 MCH 32.8 MCHC 33.3 RDW 18.4 H Plt Count 34 L MPV 9.8 Sodium 133 L Potassium 4.0 Chloride 101 Carbon Dioxide 22.8 Anion Gap 9 BUN 36 H Creatinine 4.34 H Estimated GFR 10 L POC Glucose 100 Random Glucose 118 H Calcium 8.4 L Phosphorus 1.8 L Albumin 1.7 L Result Diagrams: 01/16/18 05:05 01/16/18 05:05
[2018-01-16] MEDS: Acetaminophen 325 MG Tablet PO PRN (20:03)
[2018-01-17] MEDS: Morphine Inj 4 MG/ML Vial IV.PUSH PRN ×3 (02:30→20:35)
[2018-01-17 06:15] LABS: Hematocrit 26.9 % (35.0-46.0); Mean Corpuscular HGB Conc 33.3 % (32.0-36.0); Mean Corpuscular Volume 99.1 fL (80.0-100.0); Mean Platelet Volume 10.5 fL (7.0-11.0); Platelet Count 37 th/mm3 (150-450); Red Blood Count 2.72 mil/mm3 (4.00-5.30); Red Cell Distribution Width 18.1 % (11.6-17.2); White Blood Count 4.7 th/mm3 (4.0-11.0)
[2018-01-17 06:56] LABS: Albumin 1.7 g/dL (3.4-5.0); Calcium 8.5 mg/dL (8.5-10.1); Carbon Dioxide 24.4 meq/L (21.0-32.0); Phosphorus 1.7 mg/dL (2.5-4.9)
[2018-01-17] MEDS: Piperacil/Tazo 2.25 GM Premix 50 ML IV.SIG SCH ×3 (08:54→17:25)
--- NOTE | 2018-01-17 09:51 | P.PNIM ---
Subjective Interval history: The patient said that she finally got out of bed and feels weak. She says her diarrhea is resolved. She says she still has pain in her upper left arm but the swelling is better. She is tolerating a diet. She is sleeping at night. She is hoping to go home soon. Physical Exam Vital signs: Vital Signs 01/16/18 12:00 01/16/18 16:00 01/16/18 20:00 Temperature 97.9 F 97.9 F 97.6 F Pulse Rate 104 H 96 H 96 H Respiratory Rate 18 16 16 Blood Pressure 110/53 L 110/56 L 130/58 L Pulse Oximetry 100 01/17/18 00:00 01/17/18 04:00 01/17/18 05:20 Temperature 97.6 F 97.6 F Pulse Rate 99 H 90 Respiratory Rate 18 18 16 Blood Pressure 181/77 H 151/76 H Pulse Oximetry 01/17/18 06:34 Temperature 97.4 F L Pulse Rate 98 H Respiratory Rate 20 Blood Pressure 144/63 H Pulse Oximetry 98 Intake & Output 01/16/18 01/17/18 01/17/18 18:59 06:59 18:59 Intake Total 950 / 950 Output Total 2700 / 2700 Balance -1750 / -1750 Weight 67.2 kg Intake: IV 100 / 100 Zosyn 2.25 GM Premix 50 ML @ 100 / 100 100 mls/hr IV.SIG Q8H [facility] Rx#: [id number] Oral 850 / 850 Output: Hemodialysis Amount 2000 / 1999 Urine Amount (Catheter) 375 / 375 Indwelling Urethral Catheter 375 / 375 Stool Amount (Stoma) 325 / 325 Right Lower Abdomen 325 / 325 Other: Date of Last Bowel Movement 01/16/18 01/16/18 Narrative: GENERAL: This is a well-nourished, well-developed patient, in no apparent distress. HEENT: NC, AT. CARDIOVASCULAR: Normal rate and regular rhythm. Systolic murmur appreciated. RESPIRATORY: Good respiratory efforts. Breath sounds equal and clear to auscultation bilaterally. MUSCULOSKELETAL: Left AV graft present. There is swelling around it with minimal erythema. Warm. No draining wounds. Tender to palpation. NEUROLOGICAL: Awake, alert and oriented x4. No focal neurologic deficits. Follows commands 4 - Urinary Catheter Management Indwelling Urethral Catheter Cath placed during this visit: yes, but has since been removed by the nurse Reason for continuing: Decision to DC catheter Insertion date: 01/10/18 Insertion time: 20:00 Removal date: 01/16/18 Removal time: 16:00 Results - Labs CBC & Chem 7: 01/17/18 05:45 01/17/18 05:45 Laboratory Results - last 24 hr 01/16/18 01/16/18 01/16/18 14:02 18:03 19:52 WBC RBC Hgb Hct MCV MCH MCHC RDW Plt Count MPV Sodium Potassium Chloride Carbon Dioxide Anion Gap BUN Creatinine Estimated GFR POC Glucose 100 137 H 201 H Random Glucose Calcium Phosphorus Albumin 01/17/18 01/17/18 05:45 05:45 WBC 4.7 RBC 2.72 L Hgb 9.0 L Hct 26.9 L MCV 99.1 MCH 33.0 MCHC 33.3 RDW 18.1 H Plt Count 37 L MPV 10.5 Sodium 136 Potassium 4.0 Chloride 102 Carbon Dioxide 24.4 Anion Gap 10 BUN 20 H Creatinine 3.07 H Estimated GFR 15 L POC Glucose Random Glucose 97 Calcium 8.5 Phosphorus 1.7 L Albumin 1.7 L Microbiology 01/11/18 08:43 Blood - Peripheral Aerobic Blood Culture - Final No growth in 5 days 01/11/18 08:43 Blood - Peripheral Anaerobic Blood Culture - Final No growth in 5 days 01/11/18 08:35 Blood - Peripheral Aerobic Blood Culture - Final No growth in 5 days 01/11/18 08:35 Blood - Peripheral Anaerobic Blood Culture - Final No growth in 5 days Assessment and Plan - Assessment (1) AVF (arteriovenous fistula) Code(s): I77.0 - Arteriovenous fistula, acquired Status: Acute (2) ESRD on dialysis Code(s): N18.6 - End stage renal disease; Z99.2 - Dependence on renal dialysis Status: Chronic (3) Hypotension Code(s): I95.9 - Hypotension, unspecified Status: Acute (4) Hypoglycemia Code(s): E16.2 - Hypoglycemia, unspecified Status: Acute - Plan Septic shock Probable AV graft infection -Infectious disease following. Currently on vancomycin and Zosyn. -Dr. Antoine following for vascular, at this time he recommends continuing IV antibiotics. -Blood cultures negative to date. -Septic shock resolved. Off pressors. History of DVT/pulmonary embolism -DW Dr. Antoine, Since there is no plan for surgical intervention, stop Heparin and resume Eliquis. -DuoNeb every 6 hours scheduled and as needed History of colostomy with reversal, followed by ileostomy/Presacral fluid collection - GI following. S/P EGD, she has severe esophageal stricture status post dilation with a balloon, she also has severe esophagitis biopsy was done. Ileoscopy was normal. 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 - Continue PPI - Ileostomy care - follow pathology. ESRD -Patient has end-stage renal disease and is on Saturday, , Saturday schedule for dialysis -Nephrology Dr. Yanez is following Thrombocytopenia: Concern for HIT. - HIT panel. - hold Eliquis and consult hematology. - Continue to monitor closely. PPx: Eliquis on hold
[2018-01-17] MEDS: Senna/Docusate Sodium 8.6/50 MG Tablet PO SCH ×3 (11:10→22:59)
--- NOTE | 2018-01-17 13:32 | P.PNCV ---
- Note Subjective/Hospital Course: The swelling over the left AV graft site is somewhat decreased but still present. Cellulitis is decreased and the redness is definitely diminished Patient is hemodynamically improved Considering the patient is better and swelling is decreased will not resort to drainage or surgery at this time however if this does not improve significantly in next 24-48 hours patient will need exploration of this and possible drainage Unfortunately, at that time the AV graft may be doomed to be sacrificed for repeated opening of the graft usually does not end up well as far as preserving the access Therefore I believe this should be the last resort and hence the hesitation to open the graft site as long as patient is doing better 01/14/2018 I have been looking daily the patient for last few days and swelling has been gradually going down on the left upper arm AV graft site White count has been also decreasing and left shift is resolving. Patient is currently afebrile There is still some redness over the area but certainly much less than before and I do not feel any fluctuant collections at least not close to the skin. At this point I ordered a CT scan of the left arm and if there is still a collection this can be aspirated and if pus is detected, will drain it, otherwise going to leave it alone. 01/15/18 Swelling L arm decreased. Rubor essentially gone. WBC normal and left shift resolved. No fluctuance noted. CT does not reveal any collections. Still good flow by Doppler. At this point I do not see a reason to drain or explore the graft area. 01/16/2018 Swelling is significantly decreased from the arrival of the patient No fluctuance noted White count has normalized and left shift has resolved All the cultures are negative Exploring the graft I believe would be counterproductive at this time for swelling itself is not an indication for surgery May stop heparin and start patient on Eliquis as she was before Dr. Ventura will be back tomorrow 01/17/2018 Swelling is considerably decreased and the all the redness is gone Graft is patent and I believe this is at this time a salvageable AV graft Would not change care at this time, for it appears to be working Objective: Vital Signs - 24 hr 01/16/18 16:00 01/16/18 20:00 01/17/18 00:00 Temperature 97.9 F 97.6 F 97.6 F Pulse Rate 96 H 96 H 99 H Respiratory Rate 16 16 18 Blood Pressure 110/56 L 130/58 L 181/77 H Pulse Oximetry 100 01/17/18 04:00 01/17/18 05:20 01/17/18 06:34 Temperature 97.6 F 97.4 F L Pulse Rate 90 98 H Respiratory Rate 18 16 20 Blood Pressure 151/76 H 144/63 H Pulse Oximetry 98 Labs: Laboratory Results - last 12 hr 01/17/18 01/17/18 05:45 05:45 WBC 4.7 RBC 2.72 L Hgb 9.0 L Hct 26.9 L MCV 99.1 MCH 33.0 MCHC 33.3 RDW 18.1 H Plt Count 37 L MPV 10.5 Sodium 136 Potassium 4.0 Chloride 102 Carbon Dioxide 24.4 Anion Gap 10 BUN 20 H Creatinine 3.07 H Estimated GFR 15 L Random Glucose 97 Calcium 8.5 Phosphorus 1.7 L Albumin 1.7 L Result Diagrams: 01/17/18 05:45 01/17/18 05:45
--- NOTE | 2018-01-17 17:03 | P.PNID ---
Subjective Remarks: no more rectal drainage no fever c/o LUE pain CT elbow done: no fluid collections, but scan stops too distallynto eval very proximal part of extremety and axilla area Antibiotics: vanco flagyl zosyn Allergies/Adverse Reactions: Allergies Sulfa (Sulfonamide Antibiotics) Allergy (Verified 01/10/18 12:23) Swelling Objective Vital Signs 01/16/18 20:00 01/17/18 00:00 01/17/18 04:00 Temperature 97.6 F 97.6 F 97.6 F Pulse Rate 96 H 99 H 90 Respiratory Rate 16 18 18 Blood Pressure 130/58 L 181/77 H 151/76 H Pulse Oximetry 01/17/18 05:20 01/17/18 06:34 01/17/18 12:00 Temperature 97.4 F L 98.6 F Pulse Rate 98 H 101 H Respiratory Rate 16 20 19 Blood Pressure 144/63 H 139/70 Pulse Oximetry 98 98 Intake & Output 01/16/18 01/17/18 01/17/18 18:59 06:59 18:59 Intake Total 950 / 950 50 / 50 Output Total 2700 / 2700 Balance -1750 / -1750 50 / 50 Weight 67.2 kg Intake: IV 100 / 100 50 / 50 Zosyn 2.25 GM Premix 50 ML @ 100 / 100 50 / 50 100 mls/hr IV.SIG Q8H [facility] Rx#: [id number] Oral 850 / 850 Output: Hemodialysis Amount 1999 / 1999 Urine Amount (Catheter) 375 / 375 Indwelling Urethral Catheter 375 / 375 Stool Amount (Stoma) 325 / 325 Right Lower Abdomen 325 / 325 Other: Date of Last Bowel Movement 01/16/18 01/16/18 01/11/18 08:43 Blood - Peripheral Aerobic Blood Culture - Final No growth in 5 days 01/11/18 08:43 Blood - Peripheral Anaerobic Blood Culture - Final No growth in 5 days 01/11/18 08:35 Blood - Peripheral Aerobic Blood Culture - Final No growth in 5 days 01/11/18 08:35 Blood - Peripheral Anaerobic Blood Culture - Final No growth in 5 days Lab - Hematology Results 01/16/18 01/17/18 05:05 05:45 WBC 6.0 4.7 RBC 2.80 L 2.72 L Hgb 9.2 L 9.0 L Hct 27.6 L 26.9 L MCV 98.5 99.1 MCH 32.8 33.0 MCHC 33.3 33.3 RDW 18.4 H 18.1 H Plt Count 34 L 37 L MPV 9.8 10.5 Lab - Chemistry Results 01/15/18 01/16/18 01/16/18 20:33 05:05 14:02 Sodium 133 L Potassium 4.0 Chloride 101 Carbon Dioxide 22.8 Anion Gap 9 BUN 36 H Creatinine 4.34 H Estimated GFR 10 L POC Glucose 175 H 100 Random Glucose 118 H Calcium 8.4 L Phosphorus 1.8 L Albumin 1.7 L 01/16/18 01/16/18 01/17/18 18:03 19:52 05:45 Sodium 136 Potassium 4.0 Chloride 102 Carbon Dioxide 24.4 Anion Gap 10 BUN 20 H Creatinine 3.07 H Estimated GFR 15 L POC Glucose 137 H 201 H Random Glucose 97 Calcium 8.5 Phosphorus 1.7 L Albumin 1.7 L Imaging: ITS Impressions Abdomen/Pelvis CT 01/11/18 00:00 CONCLUSION: 1. Smooth margin low density area in the presacral soft tissues could represent postsurgical change, fluid, or possibly abscess. There is no induration of the surrounding soft tissues. 2. No dilated loops of small or large bowel. 3. Mild bibasilar atelectasis without evidence of pleural effusion. Venous Doppler Study 01/11/18 07:38 CONCLUSION: 1. No deep venous thrombosis in the visualized veins. 2. AV fistula is patent. Chest X-Ray 01/13/18 06:00 CONCLUSION: 1. Developing left basilar atelectasis. Lungs are otherwise clear. 2. Stable position of the left IJ dialysis type catheter and right subclavian central venous catheter. Elbow CT 01/14/18 00:00 CONCLUSION: 1. Soft tissue swelling within the subcutaneous fat at the upper arm and forearm. 2. Vascular graft seen in the anterior medial upper arm. Physical Exam: GENERAL: SKIN: Warm and dry. HEAD: Atraumatic. Normocephalic. EYES: Pupils equal and round. No scleral icterus. No injection or drainage. ENT: No nasal bleeding or discharge. Mucous membranes pink and moist. NECK: Trachea midline. No JVD. CARDIOVASCULAR: Regular rate and rhythm. RESPIRATORY: No accessory muscle use. Clear to auscultation. Breath sounds equal bilaterally. GASTROINTESTINAL: Abdomen soft, non-tender, distended. Hepatic and splenic margins not palpable. MUSCULOSKELETAL: Extremities without clubbing, cyanosis, Persistent edema and erythema of LUE. No further improvement Proximal arm and axilla induration No fluctuance NEUROLOGICAL: Awake and alert. No obvious cranial nerve deficits. Motor grossly within normal limits. Five out of 5 muscle strength in the arms and legs. Normal speech. PSYCHIATRIC: Appropriate mood and affect; insight and judgment normal. Assessment and Plan - Plan Sepsis: fever, hypotension, leukocytosis > 15, lactic acidosis (2.7) imroved clinically leukocytosis resolved source is gualberto AQUINO where she has a recent fistula, however other source can be a culprit, such as GI Proctitis on sigmoidoscopy dc zosyn, cont vanco CT shoulder if no fluid collections will OK to dc with IV vanco with HD and close follow up dw Shweta Jones
--- NOTE | 2018-01-17 19:57 | CT ---
EXAM DATE: 01/17/2018 7:38 PM EDT AGE/SEX: 77 years / Female INDICATIONS: Abscess to left axillary area. CLINICAL DATA: This is the patient's initial encounter. Patient reports that signs and symptoms have been present for 1 day and indicates a pain score of 2/10. MEDICAL/SURGICAL HISTORY: Hypertension. Sepsis. AV Fistula. None. RADIATION DOSE: 12.10 CTDI (mGy) COMPARISON: No prior exams available for comparison. TECHNIQUE: Multiple contiguous axial images were acquired using a multirow detector CT scanner witho ut contrast. Multiplanar reconstruction was performed in the sagittal and coronal planes. Using aut omated exposure control and adjustment of the mA and/or kV according to patient size, radiation dose was kept as low as reasonably achievable to obtain optimal diagnostic quality images. DICOM format i mage data is available electronically for review and comparison. FINDINGS: Bones: No fractures seen. No areas of bony destruction are seen. There are some hypertrophic change adjacent to the posterior lateral aspect of the greater tubercle. Joints: No significant arthropathy or bony hypertrophy is seen. Soft Tissues: There is a low-density mass likely related to a fluid collection in the left axillary region. This abuts a vascular graft. This measures approximately 7.2 cm in AP dimension, 3.4 cm in tr ansverse dimension and extends over a 7.8 cm height. There is induration in the surrounding soft tiss ues and within the subcutaneous fat at the left upper extremity. There is a small focus of air seen a t the anterior aspect of this suspected fluid collection. There are normal size lymph nodes seen in t he left axillary region. Other: There is a mild left pleural effusion. CONCLUSION: 1. 7.8 cm low-density mass in the left axillary region likely related to a fluid collection. There a re small focus of air within this. This can be consistent with the patient's history of an abscess in this region. 2. Vascular graft in the left upper arm. No comment can be made about the patency of this without co ntrast. Electronically signed by: Amos Taylor MD 01/17/2018 7:56 PM EDT
[2018-01-18] MEDS: Dextrose 5%/NaCl 0.9% Inj 1,000 ML IV.CONT SCH ×2 (01:24→01:27)
[2018-01-18] MEDS: Piperacil/Tazo 2.25 GM Premix 50 ML IV.SIG SCH ×3 (01:24→16:15)
[2018-01-18] MEDS: Morphine Inj 4 MG/ML Vial IV.PUSH PRN ×2 (02:56→11:43)
[2018-01-18 07:04] LABS: Baso % (Auto) 0.9 % (0.0-2.0); Eos # (Auto) 0.1 th/mm3 (0.0-0.4); Eos % (Auto) 1.4 % (0.0-4.0); Hematocrit 29.7 % (35.0-46.0); Hemoglobin 9.8 gm/dL (11.6-15.3); Lymph # (Auto) 1.3 th/mm3 (1.0-4.8); Lymph % (Auto) 24.5 % (9.0-44.0); Mean Corpuscular HGB Conc 32.9 % (32.0-36.0); Mean Corpuscular Hemoglobin 32.7 pg (27.0-34.0); Mean Corpuscular Volume 99.3 fL (80.0-100.0); Mean Platelet Volume 9.7 fL (7.0-11.0); Mono # (Auto) 0.5 th/mm3 (0.0-0.9); Neut # (Auto) 3.3 th/mm3 (1.8-7.7); Neut % (Auto) 63.2 % (16.0-70.0); Platelet Count 53 th/mm3 (150-450); Red Blood Count 2.99 mil/mm3 (4.00-5.30); Red Cell Distribution Width 18.3 % (11.6-17.2); White Blood Count 5.3 th/mm3 (4.0-11.0)
[2018-01-18] MEDS: Heparin 10,000 UNITS/10 ML Vial (for IV use) OTHER PRN (08:48)
[2018-01-18] MEDS: Vancomycin Inj 1,000 MG in Sodium Chlor 0.9% Inj 250 ML IV.SIG SCH (08:49)
[2018-01-18 08:51] LABS: Eosinophils 1 % (0-4); Lymphocytes 19 % (9-44); Monocytes 9 % (0-8)
[2018-01-18 08:53] LABS: Ovalocytes 1+; Platelet Morphology Normal (Normal)
[2018-01-18] MEDS: Senna/Docusate Sodium 8.6/50 MG Tablet PO SCH ×2 (08:59→21:31)
--- NOTE | 2018-01-18 09:53 | P.PNNP ---
Subjective Interval history: Patient seen during HD, no SOB, mild pain in left arm. Physical Exam Vital signs: Vital Signs 01/17/18 12:00 01/17/18 16:00 01/17/18 20:00 Temperature 98.6 F 97.1 F L 97.2 F L Pulse Rate 101 H 98 H 105 H Respiratory Rate 19 19 18 Blood Pressure 139/70 174/75 H 163/67 H Pulse Oximetry 98 98 99 01/18/18 00:00 01/18/18 04:00 01/18/18 08:00 Temperature 97.5 F L 97.8 F Pulse Rate 101 H 87 Respiratory Rate 18 18 19 Blood Pressure 136/63 141/74 H Pulse Oximetry 98 100 01/18/18 09:28 Temperature Pulse Rate 108 H Respiratory Rate 14 Blood Pressure Pulse Oximetry Intake & Output 01/17/18 01/18/18 01/18/18 18:59 06:59 18:59 Intake Total 150 / 150 450 / 450 35517 / 61898 Balance 150 / 150 450 / 450 96237 / 35432 Weight 67.2 kg Intake: IV 150 / 150 50 / 50 22522 / 44706 Levophed Inj 4 MG In NS Inj 246 250 / 250 ML @ 2 MCG/MIN 7.5 mls/hr IV. SIG TITRATE PRN Rx#:[id number] Zosyn 2.25 GM Premix 50 ML @ 150 / 150 50 / 50 100 mls/hr IV.SIG Q8H [facility] Rx#: [id number] Oral 400 / 400 Other: # Voids 2 # Bowel Movements 2 Narrative: GENERAL: This is a well-nourished, well-developed patient, in no apparent distress. HEENT: NC, AT. CARDIOVASCULAR: Normal rate and regular rhythm. Systolic murmur appreciated. RESPIRATORY: Good respiratory efforts. Breath sounds equal and clear to auscultation bilaterally. MUSCULOSKELETAL: Left AV graft present. There is swelling around it with minimal erythema. Warm. No draining wounds. Tender to palpation. NEUROLOGICAL: Awake, alert and oriented x4. No focal neurologic deficits. Follows commands 4 - Urinary Catheter Management Indwelling Urethral Catheter Cath placed during this visit: yes, but has since been removed by the nurse Reason for continuing: Decision to DC catheter Insertion date: 01/10/18 Insertion time: 20:00 Removal date: 01/16/18 Removal time: 16:00 Assessment and Plan - Assessment (1) ESRD on dialysis Code(s): N18.6 - End stage renal disease; Z99.2 - Dependence on renal dialysis Status: Chronic Plan: Hemodialysis on Saturday, and Saturday Patient left arm is less swollen Continue with antibiotic coverage Cultures negative. Fever has improved White cell count normalized. Getting Vanco. with HD. HD now and remove fluid as tolerated. Current visit: Yes (2) Hypertension Code(s): I10 - Essential (primary) hypertension Status: Acute Qualifiers: Hypertension type: essential hypertension Qualified Code(s): I10 - Essential (primary) hypertension Plan: Continue to monitor blood pressure (3) Sepsis Code(s): A41.9 - Sepsis, unspecified organism Status: Acute Plan: Patient is covered on antibiotics C. difficile was negative CT scan of the abdomen will be ordered Left arm AV graft Doppler ultrasound done good flow Repeat cultures as needed Vancomycin, Zosyn, metronidazole - Plan Patient has improved symptoms cellulitis have decreased, AV graft is patent Blood cultures negative Possibly skin infection is considered due to cellulitis Continue to observe hemodialysis on Saturday, and Saturday Continue to monitor Tacrolimus level drawn earlier for cough as he took medications last night at 2315 the levels were drawn at 9:40 AM it was 13
--- NOTE | 2018-01-18 09:58 | P.PNVS ---
Subjective Subjective/Hospital Course: Pt s/p L UE ax-ax loop AVG with PTFE on 01/01. She notes that arm swelling and redness improved. No hand pain. On HD at present. Objective Vital Signs / I&O: Vital Signs 01/17/18 12:00 01/17/18 16:00 01/17/18 20:00 Temperature 98.6 F 97.1 F L 97.2 F L Pulse Rate 101 H 98 H 105 H Respiratory Rate 19 19 18 Blood Pressure 139/70 174/75 H 163/67 H Pulse Oximetry 98 98 99 01/18/18 00:00 01/18/18 04:00 01/18/18 08:00 Temperature 97.5 F L 97.8 F Pulse Rate 101 H 87 Respiratory Rate 18 18 19 Blood Pressure 136/63 141/74 H Pulse Oximetry 98 100 01/18/18 09:28 Temperature Pulse Rate 108 H Respiratory Rate 14 Blood Pressure Pulse Oximetry Intake & Output 01/17/18 01/18/18 01/18/18 18:59 06:59 18:59 Intake Total 150 / 150 450 / 450 75923 / 88386 Balance 150 / 150 450 / 450 85012 / 22993 Weight 67.2 kg Intake: IV 150 / 150 50 / 50 03830 / 75931 Levophed Inj 4 MG In NS Inj 246 250 / 250 ML @ 2 MCG/MIN 7.5 mls/hr IV. SIG TITRATE PRN Rx#:[id number] Zosyn 2.25 GM Premix 50 ML @ 150 / 150 50 / 50 100 mls/hr IV.SIG Q8H [facility] Rx#: [id number] Oral 400 / 400 Other: # Voids 2 # Bowel Movements 2 Physical Exam: L UE markedly swollen. Hand ok no incisional erythema + bruit throughout graft Laboratory Results - last 24 hr 01/18/18 01/18/18 06:45 07:56 WBC 5.3 RBC 2.99 L Hgb 9.8 L Hct 29.7 L MCV 99.3 MCH 32.7 MCHC 32.9 RDW 18.3 H Plt Count 53 L D MPV 9.7 Prelim Diff (Auto) Slide review pending Neut % (Auto) 63.2 Lymph % (Auto) 24.5 [place] % (Auto) 10.0 H Eos % (Auto) 1.4 Baso % (Auto) 0.9 Neut # (Auto) 3.3 Lymph # (Auto) 1.3 [place] # (Auto) 0.5 Eos # (Auto) 0.1 Baso # (Auto) 0.0 WBC Differential Manual diff final Seg Neuts % (Manual) 62 Band Neuts % (Manual) 9 H Lymphocytes % (Manual) 19 Monocytes % (Manual) 9 H Eosinophils % (Manual) 1 Abs Neuts (Manual) 3.8 Differential Comment . Platelet Estimate Low L Platelet Morphology Normal Ovalocytes 1+ H POC Glucose [address] 01/17/18 00:00 CONCLUSION: 1. 7.8 cm low-density mass in the left axillary region likely related to a fluid collection. There are small focus of air within this. This can be consistent with the patient's history of an abscess in this region. 2. Vascular graft in the left upper arm. No comment can be made about the patency of this without contrast. Assessment and Plan - Assessment (1) ESRD on dialysis Code(s): N18.6 - End stage renal disease; Z99.2 - Dependence on renal dialysis Status: Chronic - Plan I suspect the erythema was more related to edema than infection. She has an ipsilateral catheter that likely is causing central venous stenosis. Given that it has been 17 days, would propose expectant management and can clear graft in about a week for cannulation. After that, can get L chest tunneled catheter out. If swelling doesn't decrease, will offer fistulogram and potential intervention. From my standpoint she can be discharged at any time with close outpatient follow-up. Since she was started on antibiotics, would propose 2 week course total for cellulitis with underlying prosthetic. Can be administered with HD as outpatient. Robles Ventura MD FACS [employer] technician [facility] - Heart and Vascular Surgery at [facility] [phone]
--- NOTE | 2018-01-18 10:55 | P.PNADD ---
Addendum to Inpatient Note Additional information: Pt was seen and examined Full note to follow
--- NOTE | 2018-01-18 11:58 | P.PNIM ---
Subjective Interval history: The patient was complaining of episodes of shortness of breath. She had one episode at night when she was sleeping that woke her up and she had another episode during dialysis today. She says the episodes resolve on their own. She has some chest tightness associated with the shortness of breath. She is currently breathing comfortably. She says her stool output is normal. Discussed with nursing at the bedside. Physical Exam Vital signs: Vital Signs 01/17/18 12:00 01/17/18 16:00 01/17/18 20:00 Temperature 98.6 F 97.1 F L 97.2 F L Pulse Rate 101 H 98 H 105 H Respiratory Rate 19 19 18 Blood Pressure 139/70 174/75 H 163/67 H Pulse Oximetry 98 98 99 01/18/18 00:00 01/18/18 04:00 01/18/18 08:00 Temperature 97.5 F L 97.8 F Pulse Rate 101 H 87 Respiratory Rate 18 18 14 Blood Pressure 136/63 141/74 H Pulse Oximetry 98 100 01/18/18 09:28 Temperature Pulse Rate 108 H Respiratory Rate 14 Blood Pressure Pulse Oximetry Intake & Output 01/17/18 01/18/18 01/18/18 18:59 06:59 18:59 Intake Total 150 / 150 450 / 450 70387 / 70278 Output Total 3000 / 3000 Balance 150 / 150 450 / 450 02771 / 38741 Weight 67.2 kg Intake: IV 150 / 150 50 / 50 81643 / 96290 Levophed Inj 4 MG In NS Inj 246 250 / 250 ML @ 2 MCG/MIN 7.5 mls/hr IV. SIG TITRATE PRN Rx#:[id number] Zosyn 2.25 GM Premix 50 ML @ 150 / 150 50 / 50 100 mls/hr IV.SIG Q8H [facility] Rx#: [id number] Vancomycin Inj 1,000 MG In NS 0 / 0 Inj 250 ML @ 250 mls/hr IV.SIG WITH [facility]IALYSIS [facility] Rx#:[id number] Oral 400 / 400 Output: Hemodialysis Amount 3000 / 3000 Other: # Voids 2 # Bowel Movements 2 Narrative: GENERAL: This is a well-nourished, well-developed patient, in no apparent distress. HEENT: NC, AT. CARDIOVASCULAR: Normal rate and regular rhythm. Systolic murmur appreciated. RESPIRATORY: Good respiratory efforts. Breath sounds equal and clear to auscultation bilaterally. MUSCULOSKELETAL: Left AV graft present. There is swelling around it with minimal erythema and induration. Warm. No draining wounds. Tender to palpation. NEUROLOGICAL: Awake, alert and oriented x4. No focal neurologic deficits. Follows commands 4 - Urinary Catheter Management Indwelling Urethral Catheter Cath placed during this visit: yes, but has since been removed by the nurse Reason for continuing: Decision to DC catheter Insertion date: 01/10/18 Insertion time: 20:00 Removal date: 01/16/18 Removal time: 16:00 Results - Labs CBC & Chem 7: 01/18/18 06:45 01/17/18 05:45 Laboratory Results - last 24 hr 01/18/18 01/18/18 06:45 07:56 WBC 5.3 RBC 2.99 L Hgb 9.8 L Hct 29.7 L MCV 99.3 MCH 32.7 MCHC 32.9 RDW 18.3 H Plt Count 53 L D MPV 9.7 Prelim Diff (Auto) Slide review pending Neut % (Auto) 63.2 Lymph % (Auto) 24.5 [place] % (Auto) 10.0 H Eos % (Auto) 1.4 Baso % (Auto) 0.9 Neut # (Auto) 3.3 Lymph # (Auto) 1.3 [place] # (Auto) 0.5 Eos # (Auto) 0.1 Baso # (Auto) 0.0 WBC Differential Manual diff final Seg Neuts % (Manual) 62 Band Neuts % (Manual) 9 H Lymphocytes % (Manual) 19 Monocytes % (Manual) 9 H Eosinophils % (Manual) 1 Abs Neuts (Manual) 3.8 Differential Comment . Platelet Estimate Low L Platelet Morphology Normal Ovalocytes 1+ H POC Glucose 77 - Imaging Impressions Shoulder CT 01/17/18 00:00 CONCLUSION: 1. 7.8 cm low-density mass in the left axillary region likely related to a fluid collection. There are small focus of air within this. This can be consistent with the patient's history of an abscess in this region. 2. Vascular graft in the left upper arm. No comment can be made about the patency of this without contrast. 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 Currently on vancomycin and Zosyn. -Vascular surgery following, at this time he recommends continuing IV antibiotics. CT of the shoulder indicates fluid collection. Surgery recommending continuing current care at this time. -Blood cultures negative to date. -Septic shock resolved. Off pressors. History of DVT/pulmonary embolism -DW Dr. Antoine, Since there is no plan for surgical intervention, stop Heparin and resume Eliquis. -DuoNeb every 6 hours scheduled and as needed Dyspnea Pt endorsed dyspnea when sleeping and during dialysis. - CXR pending. - nebs as needed. - resume Eliquis. History of colostomy with reversal, followed by ileostomy/Presacral fluid collection - GI following. S/P EGD, she has severe esophageal stricture status post dilation with a balloon, she also has severe esophagitis biopsy was done. Ileoscopy was normal. 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 - Continue PPI - Ileostomy care - follow pathology. ESRD -Patient has end-stage renal disease and is on Saturday, , Saturday schedule for dialysis -Nephrology Dr. Yanez is following Thrombocytopenia: Concern for HIT. - HIT panel. - consult hematology. - Continue to monitor closely. - resume Eliquis. PPx: Eliquis
--- NOTE | 2018-01-18 14:19 | XR ---
EXAM DATE: 01/18/2018 2:10 PM EDT AGE/SEX: 77 years / Female INDICATIONS: Shortness of breath. CLINICAL DATA: This is the patient's subsequent encounter. Patient reports that signs and symptoms h ave been present for 1 week and indicates a pain score of 0/10. MEDICAL/SURGICAL HISTORY: . Hypertension. Diverticulitis. Renal Disease . . Colostomy. Hys terectomy. Ileostomy, Vascular dialysis cath. COMPARISON: C, CHEST 1V SINGLE AP, 01/13/2018. . FINDINGS: Left lung base opacity is seen probably technical There is no appreciable pleural effusion for technique. Heart and mediastinum are unremarkable. Right subclavian line is present with tip ove rlapping the expected region of the SVC. Left subclavian line is present with tip overlapping the e xpected region of the SVC. CONCLUSION: Left lung base opacity probably technical, however slight infiltrate is difficult to exc lude. Electronically signed by: Jackie Farr MD 01/18/2018 2:18 PM EDT
--- NOTE | 2018-01-18 15:10 | P.CON ---
History of Present Illness Service: Hematology Consult date: 01/18/18 Requesting Physician: Jameson Huff Reason for Consult: Thrombocytopenia. History of recurrent deep venous thromboses. Primary Care Provider: No Primary Care Physician Family Provider: No Primary Care Physician Chief Complaint: Left arm swelling, redness and pain. Fevers. History of Present Illness: Ms. Hare is a very pleasant 77-year-old lady with multiple medical comorbid conditions, she tells me she has had hypertension since she was in her 20s and progressive renal failure over the past several years to the point where she developed end-stage renal failure about 4 months ago requiring hemodialysis. The patient underwent an AV graft creation in the left upper extremity on 2017, shortly thereafter she developed swelling, redness and pain of the left upper extremity associated with fevers. She presented to the emergency department at [facility] in [place] with the above-noted symptoms, she was noted to have a fever as well. Patient reports documenting a fever of 102F at home. After presenting to the emergency department she was initiated on broad- spectrum antibiotic coverage after she was assessed to have cellulitis of the left upper extremity and was initiated on broad-spectrum antibiotic coverage. The patient had been on therapeutic anticoagulation with Eliquis for her history of recurrent lower extremity venous thromboses. The patient reports having had recurrent venous thromboembolism in the lower extremities dating back about 12 years. Her first episode occurred after she underwent extensive abdominal surgery for management of a ruptured diverticulum. She underwent laparotomy with surgical debridement and colostomy creation, in the postoperative period if she developed lower extremity venous thromboses and was initiated on anticoagulation with warfarin. She subsequently underwent reversal of the colostomy and following this procedure she developed recurrent deep venous thromboses. And 2 years afterwards she had another episode of diverticulitis she required a third surgery and this time she underwent creation of a permanent ileostomy, postoperative. He was again complicated by recurrent venous thromboses of the lower extremities. The patient had been under the care of powder compounder at [facility] for many years, she has not been in follow-up with her powder compounder for about 5 years now. Her primary care physician had been managing long-term anticoagulation with warfarin up until she was transitioned to Eliquis some months ago. After hospitalization the patient was noted to have a gradual decline in platelet counts, her platelet counts nadired yesterday at a level of 34 on 2017, platelet counts are now up to 52,000 spontaneously. Platelet count at the time of admission was 76,000. Currently the patient is on broad-spectrum antibiotic coverage with vancomycin and Zosyn. All blood cultures are negative. Clinically, the patient reports improvement in the swelling, redness and pain of the left upper extremity. Review of Systems Constitutional: Reports weakness, Denies anorexia, Denies chills, Denies night sweats Eyes: Denies blind spots Ears, Nose, Mouth, and Throat: Denies abnormal hearing Cardiovascular: Denies chest pain, Denies shortness of breath Respiratory: Denies change in phlegm color, Denies cough, Denies shortness of breath Gastrointestinal: Denies abdominal pain Comments: Has an ileostomy. Genitourinary: Denies blood in urine, Denies hot flashes Musculoskeletal: Denies abnormal walking, Denies back pain, Denies body aches Skin/Breast: Denies acne, Denies unusual bruising Neurologic: Denies abnormal hearing, Denies dizziness, Denies fainting Psychiatric: Denies abnormal sleep pattern Endocrine: Denies cold intolerance Hematologic/Lymphatic: Denies easy bleeding Allergic/Immunologic: Denies GI upset with certain foods PMFSH - History History Provided By: Patient - Medical History Medical History: Medical History (Last Reviewed 01/17/18 @ 07:51 by Lulu Christensen) Absent parathyroid gland Anemia DVT (deep venous thrombosis) Diverticulitis of colon with perforation End stage renal disease on dialysis History of blood product transfusion Hx of hysterectomy Hypertension Pulmonary embolism Vascular dialysis catheter in place - Surgical History Surgical History: Surgical History (Last Reviewed 01/17/18 @ 07:51 by Lulu Christensen) Hx of colostomy Hx of ileostomy - Family History Family History: Family History (Last Reviewed 01/17/18 @ 07:51 by Lulu Christensen) Son Kidney disease Daughter Kidney disease - Tobacco History Second Hand Smoke Exposure: No Smoking Status: Never smoker - Alcohol History How Often Do You Have a Drink Containing Alcohol: Never - Substance Use History Substance History: No History of Abuse Medications and Allergies Active Medications: Active Medications Acetaminophen (Tylenol) 650 mg PO Q4H PRN PRN Reason: Temp > 100.4 Last Admin: 01/16/18 20:03 Dose: 650 mg Hydrocodone Bitart/Acetaminophen (Bells 5/325) 1 tab PO Q4H PRN PRN Reason: Pain 1-5 Hydrocodone Bitart/Acetaminophen (Bells 10/325) 1 tab PO Q4H PRN PRN Reason: PAIN 6-10;IF UNABLE TO TAKE PO Albuterol (Duoneb Neb (Prn)) 1 ampul NEB Q2HR NEB PRN PRN Reason: WHEEZING Apixaban (Eliquis) 2.5 mg PO BID [place] Last Admin: 01/17/18 23:02 Dose: Not Given Clonidine HCl (Catapres) 0.1 mg PO UNSCH PRN PRN Reason: SEE LABEL COMMENTS Dextrose (D50w Vial) 50 ml IV.PUSH UNSCH PRN PRN Reason: PER HYPOGLYCEMIA PROTOCOL Epoetin Justice (Epogen Inj) 4,000 unit IV.PUSH UNSCH PRN PRN Reason: SEE LABEL COMMENTS Last Admin: 01/18/18 08:45 Dose: 4,000 unit Gelatin (Gelfoam 12 Mm/7 Mm Topical) 1 foam TOPICAL PRN PRN PRN Reason: help stop bleeding from site Gentamicin Sulfate (Gentamicin Inj) 20 mg OTHER WITH DIALYSIS PRN PRN Reason: Dwell Gentamycin Lock Last Admin: 01/18/18 08:48 Dose: 20 mg Glucagon (Glucagon Inj) 1 mg OTHER PRN PRN PRN Reason: for Hypoglycemia Protocol Heparin Sodium (Porcine) (Heparin Inj) 8,000 units OTHER WITH DIALYSIS PRN PRN Reason: for machine prime Heparin Sodium (Porcine) (Heparin Inj) 1,000 units OTHER WITH DIALYSIS PRN PRN Reason: Dwell Heparin to Fill Catheter Last Admin: 01/18/18 08:48 Dose: 1,000 units Sodium Chloride (Ns Inj) 1,000 mls @ 0 mls/hr OTHER .Q0M PRN PRN Reason: for prime and rinse back Sodium Chloride (Ns Inj) 1,000 mls @ 200 mls/hr OTHER .Q5H PRN PRN Reason: for dialyzer flush PRN Sodium Chloride (Ns Inj) 1,000 mls @ 0 mls/hr IV.CONT .Q0M PRN PRN Reason: hypotension / volume replace Albumin Human (Flexbumin 25% Inj) 100 mls @ 60 mls/hr IV.SIG WITH DIALYSIS PRN PRN Reason: hypotension / volume replace Last Infusion: 01/11/18 10:29 Dose: Infused Norepinephrine Bitartrate 4 mg (/ Sodium Chloride) 250 mls @ 7.5 mls/hr IV.SIG TITRATE PRN; Protocol PRN Reason: Per Protocol Last Titration: 01/18/18 07:15 Dose: Infused Vancomycin HCl 1,000 mg/ (Sodium Chloride) 250 mls @ 250 mls/hr IV.SIG WITH DIALYSIS [facility] Last Infusion: 01/18/18 10:21 Dose: Infused Piperacillin/Tazobactam/Dextrose (Zosyn 2.25 Gm Premix) 50 mls @ 100 mls/hr IV.SIG Q8H [facility] Last Admin: 01/18/18 09:00 Dose: Not Given Lactulose (Lactulose Liq) 30 ml PO DAILY PRN PRN Reason: SEVERE CONSITIPATION Mannitol (Mannitol Inj) 12.5 gm IV.PUSH UNSCH PRN PRN Reason: hypotension / volume replace Morphine Sulfate (Morphine Inj) 2 mg IV.PUSH Q4H PRN PRN Reason: BREAKTHROUGH PAIN Last Admin: 01/18/18 11:43 Dose: 2 mg Nitroglycerin (Nitrostat Sl) 0.4 mg SL Q5M PRN PRN Reason: CHEST PAIN Pantoprazole Sodium (Protonix) 40 mg PO DAILY [facility] Last Admin: 01/18/18 08:59 Dose: Not Given Senna/Docusate Sodium (Aidee-Colace) 1 tab PO BID [facility] Last Admin: 01/18/18 08:59 Dose: Not Given Sodium Chloride (Ns Flush) 5 ml IV.FLUSH PRN PRN PRN Reason: flush each lumen during HD Terbutaline Sulfate (Brethine Inj) 1 mg SQ UNSCH PRN PRN Reason: For Extravasation Allergies Allergy/AdvReac Type Severity Reaction Status Date / Time Sulfa (Sulfonamide Allergy Swelling Verified 01/10/18 12:23 Antibiotics) Home Medications Medication Instructions Recorded Confirmed Type apixaban [Eliquis] 5 mg PO BID 01/10/18 01/11/18 History febuxostat [Uloric] 40 mg PO DAILY 01/10/18 01/11/18 History metoprolol tartrate 50 mg PO BID 01/10/18 01/11/18 History ondansetron HCl [Zofran] 8 mg PO TID PRN 01/10/18 01/11/18 History tramadol 50 mg PO Q6H 01/10/18 01/11/18 History Physical Exam Vital signs: Vital Signs 01/17/18 16:00 01/17/18 20:00 01/18/18 00:00 Temperature 97.1 F L 97.2 F L 97.5 F L Pulse Rate 98 H 105 H 101 H Respiratory Rate 19 18 18 Blood Pressure 174/75 H 163/67 H 136/63 Pulse Oximetry 98 99 98 01/18/18 04:00 01/18/18 08:00 01/18/18 09:28 Temperature 97.8 F Pulse Rate 87 108 H Respiratory Rate 18 14 14 Blood Pressure 141/74 H Pulse Oximetry 100 01/18/18 12:00 01/18/18 12:33 Temperature 97.3 F L Pulse Rate 113 H Respiratory Rate 19 18 Blood Pressure 134/61 Pulse Oximetry 99 Intake & Output 01/17/18 01/18/18 01/18/18 18:59 06:59 18:59 Intake Total 150 / 150 450 / 450 46461 / 37956 Output Total 3000 / 3000 Balance 150 / 150 450 / 450 08730 / 89199 Weight 67.2 kg Intake: IV 150 / 150 50 / 50 79019 / 68444 Levophed Inj 4 MG In NS Inj 246 250 / 250 ML @ 2 MCG/MIN 7.5 mls/hr IV. SIG TITRATE PRN Rx#:[id number] Zosyn 2.25 GM Premix 50 ML @ 150 / 150 50 / 50 100 mls/hr IV.SIG Q8H [place] Rx#: [id number] Vancomycin Inj 1,000 MG In NS 0 / 0 Inj 250 ML @ 250 mls/hr IV.SIG WITH DIALYSIS [place] Rx#:[id number] Oral 400 / 400 Output: Hemodialysis Amount 3000 / 3000 Other: # Voids 2 # Bowel Movements 2 - Constitutional no acute distress - Routine HEENT Exam Head: Present: normocephalic Eye: Present: EOMI, PERRL, normal accommodation - Routine Neck Exam Present: supple, full ROM. Absent: JVD - Routine Respiratory Exam Present: CTA bilaterally. Absent: accessory muscle use, rales, respiratory distress, rhonchi, stridor, wheezes, crackles - Routine Cardiovascular Exam Present: RRR, S1, S2. Absent: murmur, gallop, rubs - Routine Abdominal Exam Present: soft, ostomy. Absent: tenderness, distended, firm, rigid - Routine Skin Exam Present: erythema. Absent: intact, cyanosis Comments: Some erythema and warmth noted along the left elbow, medial aspect. Some edema noted. - Routine Neurological Exam Present: alert, oriented X3, CN II-XII intact - Detailed Neurological Exam: Coma Scale Eye Opening: Spontaneous - Routine Psychiatric Exam Present: normal affect - Urinary Catheter Management Indwelling Urethral Catheter Cath placed during this visit: yes, but has since been removed by the nurse Reason for continuing: Decision to DC catheter Insertion date: 01/10/18 Insertion time: 20:00 Removal date: 01/16/18 Removal time: 16:00 Assessment and Plan - Plan Ms. Hare is a very pleasant 77-year-old female with multiple medical comorbid conditions, she has end-stage renal failure, hypertension, history of recurrent diverticulitis with resultant intra-abdominal abscess requiring laparotomy with colostomy and later permanent ileostomy creation. Postoperatively she has had multiple venous thromboses involving lower extremities. She has been on chronic anticoagulation for this reason for the better part the past 15 years. The patient most recently has been on therapeutic anticoagulation with Eliquis, she previously followed with a powder compounder at the [facility] but has not followed routinely with her powder compounder for the past 5 or 6 years. The patient presented to our facility with complaints of fever, redness, swelling and tenderness of the left upper extremity. She underwent creation of an AV fistula in the left upper extremity on 01/01/2018. She had noted temperatures as high as 102F prior to presentation, the highest documented fever since presentation has been 102.9F on 01/11/2018. The patient was assessed to have cellulitis, she has been initiated on broad-spectrum antibiotic coverage with vancomycin and Zosyn, infectious diseases has been following her and advising antibiotic therapy. Over the course of this hospitalization the patient has had worsening thrombocytopenia with a presenting platelet count of 76,000, platelet count amadeo just below 35,000 on 01/16/2018. And is now gradually improving. Due to thrombocytopenia her anticoagulation was put on hold transiently. Recommendations: 1. Thrombocytopenia: Likely related to peripheral consumption secondary to DIC related to her cellulitis. This would explain her elevated PTT levels i.e. secondary to peripheral consumption. I would recommend awaiting results of the heparin/platelet factor for antibody screening test. I would like to mention that patients on hemodialysis tend to have a very high rate of false positives. Based on her clinical constellation of findings and presenting symptoms I would suspect a peripheral consumptive process causing the thrombocytopenia. I anticipate the platelet counts will continue to improve over the upcoming days. 2. Chronic anticoagulation for history of recurrent deep venous thromboses of the lower attributes: Continue anticoagulation with intermediate dose Eliquis 2.5 mg twice daily. Once her platelet count is over 80,000 I would recommend resuming standard dosing of 5 mg twice daily. 3. I have also advised the patient to reestablish hematology follow-up at the time of discharge. I have offered to see her in my clinic, but should she preferred to follow-up with a powder compounder closer to her home in [facility] that would be very appropriate as well.
[2018-01-18] MEDS: Metoprolol Tartrate 50 MG Tablet PO SCH ×2 (15:13→21:30)
[2018-01-18 15:56] LABS: Activated Partial Thrombo Time 24.4 sec (24.3-30.1); INR 1.1 Ratio; Prothrombin Time 11.2 sec (9.8-11.6)
--- NOTE | 2018-01-18 18:35 | P.PNID ---
Subjective Remarks: no more rectal drainage no fever c/o LUE pain CT shoulder with 7.8 cm axillae fluid collectio pt co SOB steates her arm is better Antibiotics: vanco Allergies/Adverse Reactions: Allergies Sulfa (Sulfonamide Antibiotics) Allergy (Verified 01/10/18 12:23) Swelling Objective Vital Signs 01/17/18 20:00 01/18/18 00:00 01/18/18 04:00 Temperature 97.2 F L 97.5 F L Pulse Rate 105 H 101 H Respiratory Rate 18 18 18 Blood Pressure 163/67 H 136/63 Pulse Oximetry 99 98 01/18/18 08:00 01/18/18 09:28 01/18/18 12:00 Temperature 97.8 F 97.3 F L Pulse Rate 87 108 H 113 H Respiratory Rate 14 14 19 Blood Pressure 141/74 H 134/61 Pulse Oximetry 100 99 01/18/18 12:33 01/18/18 16:00 Temperature 98.0 F Pulse Rate 123 H Respiratory Rate 18 18 Blood Pressure 164/77 H Pulse Oximetry 98 Intake & Output 01/17/18 01/18/18 01/18/18 18:59 06:59 18:59 Intake Total 150 / 150 450 / 450 06110 / 06416 Output Total 6000 / 6000 Balance 150 / 150 450 / 450 68342 / 67425 Weight 67.2 kg Intake: IV 150 / 150 50 / 50 36250 / 03101 Levophed Inj 4 MG In NS Inj 246 250 / 250 ML @ 2 MCG/MIN 7.5 mls/hr IV. SIG TITRATE PRN Rx#:[id number] Zosyn 2.25 GM Premix 50 ML @ 150 / 150 50 / 50 50 / 50 100 mls/hr IV.SIG Q8H [place] Rx#: [id number] Vancomycin Inj 1,000 MG In NS 0 / 0 Inj 250 ML @ 250 mls/hr IV.SIG WITH DIALYSIS [place] Rx#:[id number] Oral 400 / 400 Output: Hemodialysis Amount 6000 / 6000 Other: # Voids 2 # Bowel Movements 2 01/11/18 08:43 Blood - Peripheral Aerobic Blood Culture - Final No growth in 5 days 01/11/18 08:43 Blood - Peripheral Anaerobic Blood Culture - Final No growth in 5 days 01/11/18 08:35 Blood - Peripheral Aerobic Blood Culture - Final No growth in 5 days 01/11/18 08:35 Blood - Peripheral Anaerobic Blood Culture - Final No growth in 5 days Lab - Hematology Results 01/17/18 01/18/18 05:45 06:45 WBC 4.7 5.3 RBC 2.72 L 2.99 L Hgb 9.0 L 9.8 L Hct 26.9 L 29.7 L MCV 99.1 99.3 MCH 33.0 32.7 MCHC 33.3 32.9 RDW 18.1 H 18.3 H Plt Count 37 L 53 L D MPV 10.5 9.7 Prelim Diff (Auto) Slide review pending Neut % (Auto) 63.2 Lymph % (Auto) 24.5 [place] % (Auto) 10.0 H Eos % (Auto) 1.4 Baso % (Auto) 0.9 Neut # (Auto) 3.3 Lymph # (Auto) 1.3 [place] # (Auto) 0.5 Eos # (Auto) 0.1 Baso # (Auto) 0.0 WBC Differential Manual diff final Seg Neuts % (Manual) 62 Band Neuts % (Manual) 9 H Lymphocytes % (Manual) 19 Monocytes % (Manual) 9 H Eosinophils % (Manual) 1 Abs Neuts (Manual) 3.8 Differential Comment . Platelet Estimate Low L Platelet Morphology Normal Ovalocytes 1+ H Lab - Chemistry Results 01/16/18 01/17/18 01/18/18 19:52 05:45 07:56 Sodium 136 Potassium 4.0 Chloride 102 Carbon Dioxide 24.4 Anion Gap 10 BUN 20 H Creatinine 3.07 H Estimated GFR 15 L POC Glucose 201 H 77 Random Glucose 97 Calcium 8.5 Phosphorus 1.7 L Albumin 1.7 L 01/18/18 16:13 Sodium Potassium Chloride Carbon Dioxide Anion Gap BUN Creatinine Estimated GFR POC Glucose 146 H Random Glucose Calcium Phosphorus Albumin Imaging: ITS Impressions Abdomen/Pelvis CT 01/11/18 00:00 CONCLUSION: 1. Smooth margin low density area in the presacral soft tissues could represent postsurgical change, fluid, or possibly abscess. There is no induration of the surrounding soft tissues. 2. No dilated loops of small or large bowel. 3. Mild bibasilar atelectasis without evidence of pleural effusion. Venous Doppler Study 01/11/18 07:38 CONCLUSION: 1. No deep venous thrombosis in the visualized veins. 2. AV fistula is patent. Elbow CT 01/14/18 00:00 CONCLUSION: 1. Soft tissue swelling within the subcutaneous fat at the upper arm and forearm. 2. Vascular graft seen in the anterior medial upper arm. Shoulder CT 01/17/18 00:00 CONCLUSION: 1. 7.8 cm low-density mass in the left axillary region likely related to a fluid collection. There are small focus of air within this. This can be consistent with the patient's history of an abscess in this region. 2. Vascular graft in the left upper arm. No comment can be made about the patency of this without contrast. Chest X-Ray 01/18/18 00:00 CONCLUSION: Left lung base opacity probably technical, however slight infiltrate is difficult to exclude. Physical Exam: GENERAL: Mild distress. Looks tired and SOB SKIN: Warm and dry. EYES: Pupils equal and round. No scleral icterus. No injection or drainage. ENT: No nasal bleeding or discharge. Mucous membranes pink and moist. NECK: Trachea midline. No JVD. CARDIOVASCULAR: Regular rate and rhythm. RESPIRATORY: No accessory muscle use. Clear to auscultation. Breath sounds equal bilaterally. GASTROINTESTINAL: Abdomen soft, non-tender, distended. Hepatic and splenic margins not palpable. MUSCULOSKELETAL: Extremities without clubbing, cyanosis, edema and erythema of LUE with some improvement Proximal arm and axilla induration also seemed to improve No fluctuance NEUROLOGICAL: Awake and alert. No obvious cranial nerve deficits. Motor grossly within normal limits. Five out of 5 muscle strength in the arms and legs. Normal speech. PSYCHIATRIC: Appropriate mood and affect; insight and judgment normal. Assessment and Plan - Plan Sepsis: fever, hypotension, leukocytosis > 15, lactic acidosis (2.7) imroved clinically leukocytosis resolved source is gualberto [place]QU[place] where she has a recent fistula, however other source can be a culprit, such as GI Fluid collection in axilla ? hematoma vs abscess Proctitis on sigmoidoscopy cont ricardo [place]
[2018-01-19] MEDS: Acetaminophen 325 MG Tablet PO PRN (00:37)
[2018-01-19] MEDS: Piperacil/Tazo 2.25 GM Premix 50 ML IV.SIG SCH ×3 (00:37→16:53)
[2018-01-19 04:44] LABS: Baso % (Auto) 0.6 % (0.0-2.0); Eos # (Auto) 0.1 th/mm3 (0.0-0.4); Eos % (Auto) 1.2 % (0.0-4.0); Hematocrit 26.3 % (35.0-46.0); Hemoglobin 8.7 gm/dL (11.6-15.3); Lymph # (Auto) 1.3 th/mm3 (1.0-4.8); Lymph % (Auto) 27.6 % (9.0-44.0); Mean Corpuscular HGB Conc 33.3 % (32.0-36.0); Mean Corpuscular Hemoglobin 33.2 pg (27.0-34.0); Mean Corpuscular Volume 99.7 fL (80.0-100.0); Mean Platelet Volume 9.6 fL (7.0-11.0); Mono # (Auto) 0.7 th/mm3 (0.0-0.9); Neut # (Auto) 2.6 th/mm3 (1.8-7.7); Neut % (Auto) 55.6 % (16.0-70.0); Platelet Count 72 th/mm3 (150-450); Red Blood Count 2.63 mil/mm3 (4.00-5.30); Red Cell Distribution Width 18.2 % (11.6-17.2); White Blood Count 4.7 th/mm3 (4.0-11.0)
[2018-01-19] MEDS: Metoprolol Tartrate 50 MG Tablet PO SCH ×2 (08:01→21:34)
[2018-01-19] MEDS: Senna/Docusate Sodium 8.6/50 MG Tablet PO SCH ×2 (08:02→21:34)
--- NOTE | 2018-01-19 11:27 | P.PNONC ---
Subjective Interval history: Afebrile Patient anxious to go home Reports she feels much improved since her admission Denies bleeding Objective Vital Signs/Intake & Output: Vital Signs 01/18/18 12:00 01/18/18 12:33 01/18/18 16:00 Temperature 97.3 F L 98.0 F Pulse Rate 113 H 123 H Respiratory Rate 19 18 18 Blood Pressure 134/61 164/77 H Pulse Oximetry 99 98 01/18/18 20:00 01/19/18 00:00 01/19/18 04:00 Temperature 97.6 F 97.7 F 97.7 F Pulse Rate 91 H 87 85 Respiratory Rate 18 18 18 Blood Pressure 121/55 L 111/55 L 136/65 Pulse Oximetry 100 99 100 01/19/18 08:00 Temperature 97.8 F Pulse Rate 91 H Respiratory Rate 18 Blood Pressure 152/68 H Pulse Oximetry 99 Intake & Output 01/18/18 01/19/18 01/19/18 18:59 06:59 18:59 Intake Total 26271 / 28916 290 / 290 1050 / 1050 Output Total 6200 / 6200 200 / 200 Balance 48208 / 03121 90 / 90 1050 / 1050 [place]: [place] [address] / 60034 50 / 50 1050 / 1050 Levophed Inj 4 MG In NS Inj 246 250 / 250 ML @ 2 MCG/MIN 7.5 mls/hr IV. SIG TITRATE PRN Rx#:[id number] Zosyn 2.25 GM Premix 50 ML @ 50 / 50 50 / 50 50 / 50 100 mls/hr IV.SIG Q8H [place] Rx#: [id number] Vancomycin Inj 1,000 MG In NS 0 / 0 Inj 250 ML @ 250 mls/hr IV.SIG WITH DIALYSIS [place] Rx#:[id number] Oral 800 / 800 240 / 240 Output: Stool 200 / 200 Hemodialysis Amount 6000 / 6000 Stool Amount (Stoma) 200 / 200 Right Lower Abdomen 200 / 200 Other: # Voids 2 Date of Last Bowel Movement 01/16/18 Result Diagrams: 01/19/18 04:15 01/17/18 05:45 Laboratory Results: Laboratory Results - last 24 hr 01/18/18 01/18/18 01/18/18 15:05 16:13 20:43 WBC RBC Hgb Hct MCV MCH MCHC RDW Plt Count MPV Prelim Diff (Auto) Neut % (Auto) Lymph % (Auto) [place] % (Auto) Eos % (Auto) Baso % (Auto) Neut # (Auto) Lymph # (Auto) [place] # (Auto) Eos # (Auto) Baso # (Auto) WBC Differential Diff Scan Differential Comment PT 11.2 INR 1.1 APTT 24.4 POC Glucose 146 H 85 01/19/18 01/19/18 04:15 07:57 WBC 4.7 RBC 2.63 L Hgb 8.7 L Hct 26.3 L MCV 99.7 MCH 33.2 MCHC 33.3 RDW 18.2 H Plt Count 72 L D MPV 9.6 Prelim Diff (Auto) Slide review pending Neut % (Auto) 55.6 Lymph % (Auto) 27.6 [place] % (Auto) 15.0 H Eos % (Auto) 1.2 Baso % (Auto) 0.6 Neut # (Auto) 2.6 Lymph # (Auto) 1.3 [place] # (Auto) 0.7 Eos # (Auto) 0.1 Baso # (Auto) 0.0 WBC Differential . Diff Scan Auto diff confirmed Differential Comment . PT INR APTT POC Glucose 85 Culture Results: Microbiology 01/11/18 08:43 Aerobic Blood Culture - Final Blood - Peripheral No growth in 5 days Anaerobic Blood Culture - Final No growth in 5 days 01/11/18 08:35 Aerobic Blood Culture - Final Blood - Peripheral No growth in 5 days Anaerobic Blood Culture - Final No growth in 5 days Imaging Studies: Impressions Chest X-Ray 01/18/18 00:00 CONCLUSION: Left lung base opacity probably technical, however slight infiltrate is difficult to exclude. Medications: Active Medications Generic Name Dose Route Start Last Admin Trade Name Freq PRN Reason Stop Dose Admin Acetaminophen 650 mg 01/10/18 15:44 01/19/18 00:37 Tylenol PO 650 mg Q4H PRN Administration Temp > 100.4 Hydrocodone Bitart/Acetaminophen 1 tab 01/18/18 11:47 01/18/18 21:30 [place] 5/325 PO 1 tab Q4H PRN Administration Pain 1-5 Apixaban 2.5 mg 01/16/18 21:00 01/19/18 08:01 Eliquis PO 2.5 mg BID [place] Administration Epoetin [place] 4,000 unit 01/10/18 19:42 01/18/18 08:45 Epogen Inj IV.PUSH 4,000 unit UNSCH PRN Administration SEE LABEL COMMENTS Gentamicin Sulfate 20 mg 01/10/18 19:42 01/18/18 08:48 Gentamicin Inj OTHER 20 mg WITH DIALYSIS PRN Administration Dwell Gentamycin Lock Heparin Sodium (Porcine) 1,000 units 01/10/18 19:42 01/18/18 08:48 Heparin Inj OTHER 1,000 units WITH DIALYSIS PRN Administration Dwell Heparin to Fill Catheter Albumin Human 100 mls @ 60 mls/hr 01/10/18 19:42 01/11/18 10:29 Flexbumin 25% Inj IV.SIG Infused WITH DIALYSIS PRN Infusion hypotension / volume replace Norepinephrine Bitartrate 4 mg 250 mls @ 7.5 mls/hr 01/11/18 07:29 01/18/18 07:15 / Sodium Chloride IV.SIG Infused TITRATE PRN Titration Per Protocol Protocol 2 MCG/MIN Vancomycin HCl 1,000 mg/ 250 mls @ 250 mls/hr 01/13/18 15:00 01/18/18 10:21 Sodium Chloride IV.SIG Infused WITH DIALYSIS [place] Infusion Piperacillin/Tazobactam/Dextrose 50 mls @ 100 mls/hr 01/12/18 17:00 01/19/18 08:56 Zosyn 2.25 Gm Premix IV.SIG Infused Q8H [place] Infusion Metoprolol Tartrate 50 mg 01/18/18 15:04 01/19/18 08:01 Lopressor PO 50 mg BID [place] Administration Morphine Sulfate 2 mg 01/10/18 20:40 01/18/18 11:43 Morphine Inj IV.PUSH 2 mg Q4H PRN Administration BREAKTHROUGH PAIN Pantoprazole Sodium 40 mg 01/16/18 09:00 01/19/18 08:01 Protonix PO 40 mg DAILY [place] Administration Senna/Docusate Sodium 1 tab 01/10/18 21:00 01/19/18 08:02 Aidee-Colace PO Not Given BID [facility] Objective Remarks: GENERAL: Elderly female resting in bed in no obvious distress. She is smiling and speaks in easy conversation. SKIN: Warm and dry. HEAD: Normocephalic. EYES: No scleral icterus. No injection or drainage. NECK: Supple, trachea midline. No JVD or lymphadenopathy. CARDIOVASCULAR: Regular rate and rhythm without murmurs. RESPIRATORY: Breath sounds equal bilaterally. No accessory muscle use. GASTROINTESTINAL: Abdomen soft, non-tender, nondistended. EXTREMITIES: Left upper extremity edematous. Mild serous fluid oozing noted to healing incision to left upper arm. No swelling to bilateral lower extremities. MUSCULOSKELETAL: Adequate muscle tone. NEUROLOGICAL: No obvious focal deficit. Awake, alert, and oriented x3. Assessment/Plan (1) DVT (deep venous thrombosis) Code(s): I82.409 - Acute embolism and thrombosis of unspecified deep veins of unspecified lower extremity Status: Chronic (2) ESRD on dialysis Code(s): N18.6 - End stage renal disease; Z99.2 - Dependence on renal dialysis Status: Chronic (3) Sepsis Code(s): A41.9 - Sepsis, unspecified organism Status: Acute - Plan 77-year-old female with multiple comorbidities including end-stage renal disease , admitted with cellulitis to recent AV fistula graft. Hematology consulted for thrombus cytopenia 1. Platelet counts improving as infection clears. Her APTT is no longer prolonged. Clinical picture points to thrombocytopenia due to DIC. 2. Continue Eliquis at 2.5 mg twice daily 3. CBC in a.m. If platelet count greater than 80,000 will resume Eliquis at full dosing (5 mg twice daily) (1) DVT (deep venous thrombosis) Qualifiers: DVT location: lower extremity
--- NOTE | 2018-01-19 12:09 | P.PNNP ---
Subjective Interval history: Patient is alert, no SOB, no chest pain. Physical Exam Vital signs: Vital Signs 01/18/18 12:33 01/18/18 16:00 01/18/18 20:00 Temperature 98.0 F 97.6 F Pulse Rate 123 H 91 H Respiratory Rate 18 Blood Pressure 164/77 H 121/55 L Pulse Oximetry 98 100 01/19/18 00:00 01/19/18 04:00 01/19/18 08:00 Temperature 97.7 F 97.7 F 97.8 F Pulse Rate 87 85 91 H Respiratory Rate 18 Blood Pressure 111/55 L 136/65 152/68 H Pulse Oximetry 99 100 99 Intake & Output 01/18/18 01/19/18 01/19/18 18:59 06:59 18:59 Intake Total 24661 / 09160 290 / 290 1050 / 1050 Output Total 6200 / 6200 200 / 200 Balance 51362 / 43038 90 / 90 1050 / 1050 [place]: [place] [address] / 74778 50 / 50 1050 / 1050 Levophed Inj 4 MG In NS Inj 246 250 / 250 ML @ 2 MCG/MIN 7.5 mls/hr IV. SIG TITRATE PRN Rx#:[id number] Zosyn 2.25 GM Premix 50 ML @ 50 / 50 50 / 50 50 / 50 100 mls/hr IV.SIG Q8H [place] Rx#: [id number] Vancomycin Inj 1,000 MG In NS 0 / 0 Inj 250 ML @ 250 mls/hr IV.SIG WITH DIALYSIS [place] Rx#:[id number] Oral 800 / 800 240 / 240 Output: Stool 200 / 200 Hemodialysis Amount 6000 / 6000 Stool Amount (Stoma) 200 / 200 Right Lower Abdomen 200 / 200 Other: # Voids 2 Date of Last Bowel Movement 01/16/18 Narrative: GENERAL: This is a well-nourished, well-developed patient, in no apparent distress. HEENT: NC, AT. CARDIOVASCULAR: Normal rate and regular rhythm. Systolic murmur appreciated. RESPIRATORY: Good respiratory efforts. Breath sounds equal and clear to auscultation bilaterally. MUSCULOSKELETAL: Left AV graft present. There is swelling around it with minimal erythema and induration. Warm. No draining wounds. Tender to palpation. NEUROLOGICAL: Awake, alert and oriented x4. No focal neurologic deficits. Follows commands 4 - Urinary Catheter Management Indwelling Urethral Catheter Cath placed during this visit: yes, but has since been removed by the nurse Reason for continuing: Decision to DC catheter Insertion date: 01/10/18 Insertion time: 20:00 Removal date: 01/16/18 Removal time: 16:00 Assessment and Plan - Assessment (1) ESRD on dialysis Code(s): N18.6 - End stage renal disease; Z99.2 - Dependence on renal dialysis Status: Chronic Plan: Hemodialysis on Saturday, and Saturday Patient left arm is less swollen Continue with antibiotic coverage Cultures negative. Fever has improved White cell count normalized. Getting Vanco. with HD. HD done yesterday. Left arm swelling decreasing. Dr. Yanez will follow from tomorrow. Current visit: Yes (2) Hypertension Code(s): I10 - Essential (primary) hypertension Status: Acute Qualifiers: Hypertension type: essential hypertension Qualified Code(s): I10 - Essential (primary) hypertension Plan: Continue to monitor blood pressure (3) Sepsis Code(s): A41.9 - Sepsis, unspecified organism Status: Acute Plan: Patient is covered on antibiotics C. difficile was negative CT scan of the abdomen will be ordered Left arm AV graft Doppler ultrasound done good flow Repeat cultures as needed Vancomycin, Zosyn, metronidazole - Plan Patient has improved symptoms cellulitis have decreased, AV graft is patent Blood cultures negative Possibly skin infection is considered due to cellulitis Continue to observe hemodialysis on Saturday, and Saturday Continue to monitor Tacrolimus level drawn earlier for cough as he took medications last night at 2315 the levels were drawn at 9:40 AM it was 13
--- NOTE | 2018-01-19 14:33 | ECG ---
Date Performed: 01/18/2018 Time Performed: 15:29:37 PTAGE: 77 years EKG: SINUS TACHYCARDIA NONSPECIFIC T-WAVE ABNORMALITY ABNORMAL RHYTHM ECG Since PREVIOUS TRACING , no significant change noted PREVIOUS TRACIN01/01/2018 07.01 DOCTOR: Steve Harper Interpretating Date/Time 01/19/2018 14:32:19
--- NOTE | 2018-01-19 15:18 | P.PNIM ---
Subjective Interval history: The patient was resting comfortably in bed. She states that her left arm was feeling better. She was hoping to go home soon. Discussed with nursing. Physical Exam Vital signs: Vital Signs 01/18/18 16:00 01/18/18 20:00 01/19/18 00:00 Temperature 98.0 F 97.6 F 97.7 F Pulse Rate 123 H 91 H 87 Respiratory Rate 18 18 18 Blood Pressure 164/77 H 121/55 L 111/55 L Pulse Oximetry 98 100 99 01/19/18 04:00 01/19/18 08:00 01/19/18 12:00 Temperature 97.7 F 97.8 F 97.5 F L Pulse Rate 85 91 H 85 Respiratory Rate 18 18 18 Blood Pressure 136/65 152/68 H 115/58 L Pulse Oximetry 100 99 99 Intake & Output 01/18/18 01/19/18 01/19/18 18:59 06:59 18:59 Intake Total 54034 / 54589 290 / 290 1050 / 1050 Output Total 6200 / 6200 200 / 200 Balance 07230 / 90785 90 / 90 1050 / 1050 [place]: [place] [address] / 80290 50 / 50 1050 / 1050 Levophed Inj 4 MG In NS Inj 246 250 / 250 ML @ 2 MCG/MIN 7.5 mls/hr IV. SIG TITRATE PRN Rx#:[id number] Zosyn 2.25 GM Premix 50 ML @ 50 / 50 50 / 50 50 / 50 100 mls/hr IV.SIG Q8H [place] Rx#: [id number] Vancomycin Inj 1,000 MG In NS 0 / 0 Inj 250 ML @ 250 mls/hr IV.SIG WITH DIALYSIS [place] Rx#:[id number] Oral 800 / 800 240 / 240 Output: Stool 200 / 200 Hemodialysis Amount 6000 / 6000 Stool Amount (Stoma) 200 / 200 Right Lower Abdomen 200 / 200 Other: # Voids 2 Date of Last Bowel Movement 01/16/18 Narrative: GENERAL: This is a well-nourished, well-developed patient, in no apparent distress. HEENT: NC, AT. CARDIOVASCULAR: Normal rate and regular rhythm. Systolic murmur appreciated. RESPIRATORY: Good respiratory efforts. Breath sounds equal and clear to auscultation bilaterally. MUSCULOSKELETAL: Left AV graft present. There is swelling around it with minimal erythema and induration. Warm. No draining wounds. Tender to palpation. NEUROLOGICAL: Awake, alert and oriented x4. No focal neurologic deficits. Follows commands 4 - Urinary Catheter Management Indwelling Urethral Catheter Cath placed during this visit: yes, but has since been removed by the nurse Reason for continuing: Decision to DC catheter Insertion date: 01/10/18 Insertion time: 20:00 Removal date: 01/16/18 Removal time: 16:00 Results - Labs CBC & Chem 7: 01/19/18 04:15 01/17/18 05:45 Laboratory Results - last 24 hr 01/17/18 01/18/18 01/18/18 10:35 15:05 16:13 WBC RBC Hgb Hct MCV MCH MCHC RDW Plt Count MPV Prelim Diff (Auto) Neut % (Auto) Lymph % (Auto) [place] % (Auto) Eos % (Auto) Baso % (Auto) Neut # (Auto) Lymph # (Auto) [place] # (Auto) Eos # (Auto) Baso # (Auto) WBC Differential Diff Scan Differential Comment PT 11.2 INR 1.1 APTT 24.4 POC Glucose 146 H Hep-Induced Plt Ab Gabbi Negative [facility]IPA Patient OD 0.061 01/18/18 01/19/18 01/19/18 20:43 04:15 07:57 WBC 4.7 RBC 2.63 L Hgb 8.7 L Hct 26.3 L MCV 99.7 MCH 33.2 MCHC 33.3 RDW 18.2 H Plt Count 72 L D MPV 9.6 Prelim Diff (Auto) Slide review pending Neut % (Auto) 55.6 Lymph % (Auto) 27.6 [place] % (Auto) 15.0 H Eos % (Auto) 1.2 Baso % (Auto) 0.6 Neut # (Auto) 2.6 Lymph # (Auto) 1.3 [place] # (Auto) 0.7 Eos # (Auto) 0.1 Baso # (Auto) 0.0 WBC Differential . Diff Scan Auto diff confirmed Differential Comment . PT INR APTT POC Glucose 85 85 Hep-Induced Plt Ab Gabbi [facility] Patient OD 01/19/18 12:17 WBC RBC Hgb Hct MCV MCH MCHC RDW Plt Count MPV Prelim Diff (Auto) Neut % (Auto) Lymph % (Auto) [place] % (Auto) Eos % (Auto) Baso % (Auto) Neut # (Auto) Lymph # (Auto) [place] # (Auto) Eos # (Auto) Baso # (Auto) WBC Differential Diff Scan Differential Comment PT INR APTT POC Glucose 103 Hep-Induced Plt Ab Gabbi [facility] Patient OD Assessment and Plan - Assessment (1) AVF (arteriovenous fistula) Code(s): I77.0 - Arteriovenous fistula, acquired Status: Acute (2) ESRD on dialysis Code(s): N18.6 - End stage renal disease; Z99.2 - Dependence on renal dialysis Status: Chronic (3) Hypotension Code(s): I95.9 - Hypotension, unspecified Status: Acute (4) Hypoglycemia Code(s): E16.2 - Hypoglycemia, unspecified Status: Acute (5) Diarrhea Code(s): R19.7 - Diarrhea, unspecified Status: Inactive - Plan Septic shock 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 Blood cultures negative. Septic shock resolved. Off pressors. -Infectious disease following. Currently on vancomycin and Zosyn. -Vascular surgery following, at this time he recommends continuing IV antibiotics. CT of the shoulder indicates fluid collection. Surgery recommending continuing current care at this time. History of DVT/pulmonary embolism -on Eliquis. -DuoNeb every 6 hours scheduled and as needed Dyspnea Pt endorsed dyspnea when sleeping and during dialysis. - d/c IVFs. - nebs as needed. - resume Eliquis. History of colostomy with reversal, followed by ileostomy/Presacral fluid collection - GI following. S/P EGD, she has severe esophageal stricture status post dilation with a balloon, she also has severe esophagitis biopsy was done. Ileoscopy was normal. 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 - Continue PPI - Ileostomy care - follow pathology. ESRD -Patient has end-stage renal disease and is on Saturday, , Saturday schedule for dialysis -Nephrology Dr. Yanez is following Thrombocytopenia: May be s/t sepsis, HIT. Hematology consult appreciated. - HIT panel. - consult hematology. - Continue to monitor closely. - resume Eliquis. PPx: Eliquis
--- NOTE | 2018-01-19 23:40 | P.PNADD ---
Addendum to Inpatient Note Reason for Addendum: Additional Documentation Additional information: The patient had a 2.5 second pause on telemetry and felt perhaps a "rattle" of congestion in her chest - she has had similar episodes previously and feels better with a breathing treatment. BP is on the low side of normal. Will decrease Metoprolol to 25 mg twice daily p.o. and instructed nurse to get the patient a breathing treatment and to continue to monitor overnight. Any additional workup will be at the daytime attending physician's discretion or pending any further changes overnight.
[2018-01-19] MEDS ORDERED: Metoprolol Tartrate 25 MG Tablet PO SCH (23:45)
[2018-01-20] MEDS: Piperacil/Tazo 2.25 GM Premix 50 ML IV.SIG SCH ×3 (01:25→17:00)
[2018-01-20 06:11] LABS: Baso # (Auto) 0.1 th/mm3 (0.0-0.2); Eos % (Auto) 0.6 % (0.0-4.0); Hematocrit 25.1 % (35.0-46.0); Hemoglobin 8.3 gm/dL (11.6-15.3); Lymph # (Auto) 1.2 th/mm3 (1.0-4.8); Lymph % (Auto) 17.9 % (9.0-44.0); Mean Corpuscular Hemoglobin 33.4 pg (27.0-34.0); Mean Corpuscular Volume 101.1 fL (80.0-100.0); Mean Platelet Volume 9.5 fL (7.0-11.0); Mono # (Auto) 0.6 th/mm3 (0.0-0.9); Mono % (Auto) 9.6 % (0.0-8.0); Neut # (Auto) 4.6 th/mm3 (1.8-7.7); Neut % (Auto) 70.9 % (16.0-70.0); Platelet Count 96 th/mm3 (150-450); Red Blood Count 2.49 mil/mm3 (4.00-5.30); Red Cell Distribution Width 17.5 % (11.6-17.2); White Blood Count 6.5 th/mm3 (4.0-11.0)
[2018-01-20 08:34] LABS: Alanine Aminotransferase 11 U/L (10-53); Albumin 2.1 g/dL (3.4-5.0); Anion Gap 9 meq/L (5-15); Aspartate Aminotransferase 10 U/L (15-37); Blood Urea Nitrogen 30 mg/dL (7-18); Calcium 8.8 mg/dL (8.5-10.1); Carbon Dioxide 22.1 meq/L (21.0-32.0); Chloride 103 meq/L (98-107); Glomerular Filtration Rate 11 mL/min (>89); Glucose,Random 102 mg/dL (74-106); Potassium 4.9 meq/L (3.5-5.1); Sodium 134 meq/L (136-145)
--- NOTE | 2018-01-20 08:36 | P.PNVS ---
Subjective Subjective/Hospital Course: Pt s/p L UE ax-ax loop AVG with PTFE on 01/01. Arm continues to improve. She subjectively has episodic SOB but no desaturations. Objective Vital Signs / I&O: Vital Signs 01/19/18 12:00 01/19/18 16:00 01/19/18 16:25 Temperature 97.5 F L 97.2 F L Pulse Rate 85 87 Respiratory Rate 18 18 Blood Pressure 115/58 L 171/62 H 136/63 Pulse Oximetry 99 100 01/19/18 16:30 01/19/18 20:00 01/19/18 23:15 Temperature 97.9 F Pulse Rate 87 91 H 81 Respiratory Rate 12 18 30 H Blood Pressure 145/63 H 108/83 Pulse Oximetry 99 98 01/20/18 00:00 01/20/18 00:17 01/20/18 04:00 Temperature 97.8 F 97.8 F Pulse Rate 79 85 92 H Respiratory Rate 18 16 20 Blood Pressure 111/58 L 123/65 Pulse Oximetry 100 100 01/20/18 08:00 Temperature 97.3 F L Pulse Rate 86 Respiratory Rate 22 Blood Pressure 150/70 H Pulse Oximetry 100 Intake & Output 01/19/18 01/20/18 01/20/18 18:59 06:59 18:59 Intake Total 2059 / 2059 50 / 50 Output Total 150 / 150 Balance 1909 / 1909 50 / 50 Intake: IV 1100 / 1100 50 / 50 Zosyn 2.25 GM Premix 50 ML @ 100 / 100 50 / 50 100 mls/hr IV.SIG Q8H [facility] Rx#: [id number] Oral 960 / 960 Output: Stool Amount (Stoma) 150 / 150 Right Lower Abdomen 150 / 150 Other: # Voids 4 3 Physical Exam: L UE edematous but less so. incisions without erythema + serous drainage from axillary incision Laboratory Results - last 24 hr 01/17/18 01/19/18 01/19/18 10:35 12:17 16:24 WBC RBC Hgb Hct MCV MCH MCHC RDW Plt Count MPV Prelim Diff (Auto) Neut % (Auto) Lymph % (Auto) [place] % (Auto) Eos % (Auto) Baso % (Auto) Neut # (Auto) Lymph # (Auto) [place] # (Auto) Eos # (Auto) Baso # (Auto) WBC Differential Diff Scan Differential Comment Basophilic Stippling POC Glucose 103 91 Hep-Induced Plt Ab Gabbi Negative [facility] Patient OD 0.061 01/19/18 01/20/18 01/20/18 21:32 05:16 08:03 WBC 6.5 RBC 2.49 L Hgb 8.3 L Hct 25.1 L MCV 101.1 H MCH 33.4 MCHC 33.0 RDW 17.5 H Plt Count 96 L D MPV 9.5 Prelim Diff (Auto) Slide review pending Neut % (Auto) 70.9 H Lymph % (Auto) 17.9 [place] % (Auto) 9.6 H Eos % (Auto) 0.6 Baso % (Auto) 1.0 Neut # (Auto) 4.6 Lymph # (Auto) 1.2 [place] # (Auto) 0.6 Eos # (Auto) 0.0 Baso # (Auto) 0.1 WBC Differential . Diff Scan Auto diff confirmed Differential Comment . Basophilic Stippling Faint H POC Glucose 113 H 126 H Hep-Induced Plt Ab Gabbi [facility] Patient OD Impressions Chest X-Ray 01/18/18 00:00 CONCLUSION: Left lung base opacity probably technical, however slight infiltrate is difficult to exclude. Assessment and Plan - Assessment (1) ESRD on dialysis Code(s): N18.6 - End stage renal disease; Z99.2 - Dependence on renal dialysis Status: Chronic - Plan I suspect the erythema was more related to edema than infection. She has an ipsilateral catheter that likely is causing central venous stenosis. Expectant management - arm elevation Dry gauze in axilla will clear access for use in about 1 week From my standpoint she can be discharged at any time with close outpatient follow-up. cardiopulmonary w/u for SOB Robles Ventura MD FACS [employer] shaker plate operator [facility] - [facility] V[facility] at [facility] [phone]
[2018-01-20 08:40] LABS: Alkaline Phosphatase 126 U/L (45-117); Total Protein 6.2 g/dL (6.4-8.2)
--- NOTE | 2018-01-20 09:07 | XR ---
EXAM DATE: 01/20/2018 8:42 AM EDT AGE/SEX: 77 years / Female INDICATIONS: Shortness of breath. CLINICAL DATA: This is the patient's subsequent encounter. Patient reports that signs and symptoms h ave been present for 3 days and indicates a pain score of 0/10. MEDICAL/SURGICAL HISTORY: Hypertension. Renal disease. Hysterectomy. Vascular dialysis cathete r. COMPARISON: [facility] [place] 1V SINGLE AP, 01/18/2018. . FINDINGS: Left subclavian central venous catheter as well as a right subclavian approach central venous cathete r identified. Cardiomegaly. No consolidation. Minimal blunting of the left lateral costophrenic angle unchanged. Osseous structures are intact. CONCLUSION: Stable appearance of the chest. Electronically signed by: Freedom Lara MD 01/20/2018 9:06 AM EDT
[2018-01-20] MEDS ORDERED: amLODIPine 5 MG Tablet PO ONE (09:45)
[2018-01-20] MEDS: Senna/Docusate Sodium 8.6/50 MG Tablet PO SCH ×2 (10:06→21:18)
--- NOTE | 2018-01-20 10:18 | MB ---
cc: Terry Montilla MD DATE: 01/20/2018 REASON FOR CONSULTATION: Bradycardia, pause on the monitor. HISTORY OF PRESENT ILLNESS: The patient is a 77-year-old white female with a history of hypertension, perforated diverticulosis/diverticulitis necessitating colostomy placement, end-stage renal disease, deep venous thrombosis and pulmonary embolism, who was initially admitted to the hospital with complaints of left upper extremity swelling, diarrhea, generalized weakness. Initially she was mildly hypotensive as well. On monitoring in the last 12 hours, she has demonstrated episodic bradycardia. The patient states she had no lightheadedness except upon standing, which has been chronic. She also denies syncope or near syncope. However, for at least the last year, she has noticed considerable dyspnea with very minimal exertion. This morning, she also noted an episode of dyspnea at the time of bradycardia. The patient denies paroxysmal nocturnal dyspnea, pedal edema. Chronically she has had fluttering palpitations which never last more than a minute. In addition, she reports an approximately 2-year history of occasional chest tightness with no relationship to exertion or emotional stress. She states she did have a heart catheterization earlier this year at [facility], showing no coronary disease. PAST MEDICAL HISTORY: 1. Hypertension. 2. Perforated diverticulitis approximately 8 years ago, necessitating colostomy placement. The patient had the colostomy reversed, but apparently had subsequent problems with diarrhea and abdominal pain. On attempts to place another colostomy, there was too much scar tissue, so ileostomy was placed. 3. End-stage renal disease, status post AV fistula graft 01/01/2018. 4. Deep venous thrombosis of the lower extremity about 8 years ago, at the time of her colon surgery. 5. Pulmonary embolism 8 years ago. 6. Esophageal stricture status post dilation 01/13/2018. 7. Severe esophagitis by endoscopy 01/13/2018. PAST SURGICAL HISTORY: 1. Colostomy and reversal. 2. Ileostomy. CURRENT CARDIAC MEDICATIONS: 1. Apixaban 2.5 mg p.o. b.i.d. 2. Metoprolol 25 mg p.o. b.i.d. ALLERGIES: SULFA. FAMILY HISTORY: Noncontributory. SOCIAL HISTORY: The patient denies any history of alcohol or tobacco abuse. REVIEW OF SYSTEMS: As in the history of present illness, otherwise negative or noncontributory. She also denies melena, bright red blood per rectum, fevers, pleurisy. PHYSICAL EXAMINATION: VITAL SIGNS: Her blood pressure 150/70 with a pulse of 86, respirations 22. GENERAL: She is a well-developed, well-nourished white female in no acute distress. NECK: Jugular venous pressure is normal. Carotid pulses are 2+ bilaterally and without bruits. CHEST: Clear lungs valdez. CARDIAC: She has a regular rhythm and rate with a grade 2/6 systolic murmur heard at the apex. No definite gallop is audible. ABDOMEN: She has a soft, nontender abdomen. Bowel sounds are present. There is no definite hepatosplenomegaly. EXTREMITIES: Reveals no clubbing, cyanosis or edema. LABORATORY DATA: EKG from today shows normal sinus rhythm, normal EKG. Chest x-ray shows no acute disease. LABORATORY DATA: Includes WBC 6.5, hemoglobin 8.3, platelets 96, potassium 4.9, BUN 30, creatinine 4.12. Troponin less than 0.02. IMPRESSION: Symptomatic bradycardia in this 77-year-old white female with a history of hypertension, perforated diverticulitis necessitating colostomy and then subsequent ileostomy, end-stage renal disease, deep venous thrombosis and pulmonary embolism, esophageal stricture, esophagitis. Review of her monitoring strips unfortunately shows a fair amount of artifact, making assessment of the rhythm difficult. She does appear to have episodic either junctional rhythm or sinus bradycardia with marked first-degree AV block. There is no definite evidence for third-degree AV block. This morning while bradycardic, she did develop considerable dyspnea. The patient is on beta stephanie therapy, which could be contributing to the bradyarrhythmias. With respect to her chronic intermittent chest tightness, the symptoms are overall atypical for myocardial ischemia. She does report what sounds like a heart catheterization at [facility], about 2 months ago. The etiology of her dyspnea is not entirely clear. She has no other signs or symptoms of congestive heart failure. RECOMMENDATIONS: 1. Keep the patient off AV kristie suppressing drugs. 2. Use amlodipine or an ALIYAH inhibitor for blood pressure control. 3. Check a 2D echo to assess her left ventricular and valvular function. 4. Would try to obtain the heart catheterization report from [facility] in [place]. Terry Montilla MD GHLilli/kb , 09:55 AM , 10:06 AM
--- NOTE | 2018-01-20 10:40 | P.PNONC ---
Subjective Interval history: Afebrile Patient reports she had another episode of increased shortness of breath, chest pressure and dizziness She states she has had these episodes occasionally since beginning Eliquis 2 months ago Wants to go back to anticoagulation with Coumadin Per RN, she also had a pause on telemetry at most recent episode of shortness of breath VQ scan ordered Attending has consulted cardiology Objective Vital Signs/Intake & Output: Vital Signs 01/19/18 12:00 01/19/18 16:00 01/19/18 16:25 Temperature 97.5 F L 97.2 F L Pulse Rate 85 87 Respiratory Rate 18 18 Blood Pressure 115/58 L 171/62 H 136/63 Pulse Oximetry 99 100 01/19/18 16:30 01/19/18 20:00 01/19/18 23:15 Temperature 97.9 F Pulse Rate 87 91 H 81 Respiratory Rate 12 18 30 H Blood Pressure 145/63 H 108/83 Pulse Oximetry 99 98 01/20/18 00:00 01/20/18 00:17 01/20/18 04:00 Temperature 97.8 F 97.8 F Pulse Rate 79 85 92 H Respiratory Rate 18 16 20 Blood Pressure 111/58 L 123/65 Pulse Oximetry 100 100 01/20/18 08:00 Temperature 97.3 F L Pulse Rate 86 Respiratory Rate 22 Blood Pressure 150/70 H Pulse Oximetry 100 Intake & Output 01/19/18 01/20/18 01/20/18 18:59 06:59 18:59 Intake Total 2059 / 2059 50 / 50 Output Total 150 / 150 Balance 1909 / 1909 50 / 50 Intake: IV 1100 / 1100 50 / 50 Zosyn 2.25 GM Premix 50 ML @ 100 / 100 50 / 50 100 mls/hr IV.SIG Q8H [facility] Rx#: [id number] Oral 960 / 960 Output: Stool Amount (Stoma) 150 / 150 Right Lower Abdomen 150 / 150 Other: # Voids 4 3 Result Diagrams: 01/20/18 05:16 01/20/18 07:43 Laboratory Results: Laboratory Results - last 24 hr 01/17/18 01/19/18 01/19/18 10:35 12:17 16:24 WBC RBC Hgb Hct MCV MCH MCHC RDW Plt Count MPV Prelim Diff (Auto) Neut % (Auto) Lymph % (Auto) Nobles % (Auto) Eos % (Auto) Baso % (Auto) Neut # (Auto) Lymph # (Auto) Nobles # (Auto) Eos # (Auto) Baso # (Auto) WBC Differential Diff Scan Differential Comment Basophilic Stippling Sodium Potassium Chloride Carbon Dioxide Anion Gap BUN Creatinine Estimated GFR POC Glucose 103 91 Random Glucose Calcium Total Bilirubin AST ALT Alkaline Phosphatase Troponin I Total Protein Albumin Hep-Induced Plt Ab Gabbi Negative HIPA Patient OD 0.061 01/19/18 01/20/18 01/20/18 21:32 05:16 07:43 WBC 6.5 RBC 2.49 L Hgb 8.3 L Hct 25.1 L MCV 101.1 H MCH 33.4 MCHC 33.0 RDW 17.5 H Plt Count 96 L D MPV 9.5 Prelim Diff (Auto) Slide review pending Neut % (Auto) 70.9 H Lymph % (Auto) 17.9 Nobles % (Auto) 9.6 H Eos % (Auto) 0.6 Baso % (Auto) 1.0 Neut # (Auto) 4.6 Lymph # (Auto) 1.2 Nobles # (Auto) 0.6 Eos # (Auto) 0.0 Baso # (Auto) 0.1 WBC Differential . Diff Scan Auto diff confirmed Differential Comment . Basophilic Stippling Faint H Sodium 134 L Potassium 4.9 Chloride 103 Carbon Dioxide 22.1 Anion Gap 9 BUN 30 H Creatinine 4.12 H Estimated GFR 11 L POC Glucose 113 H Random Glucose 102 Calcium 8.8 Total Bilirubin 0.4 AST 10 L ALT 11 Alkaline Phosphatase 126 H Troponin I Less than 0.02 L Total Protein 6.2 L Albumin 2.1 L Hep-Induced Plt Ab Gabbi HIPA Patient OD 01/20/18 08:03 WBC RBC Hgb Hct MCV MCH MCHC RDW Plt Count MPV Prelim Diff (Auto) Neut % (Auto) Lymph % (Auto) Nobles % (Auto) Eos % (Auto) Baso % (Auto) Neut # (Auto) Lymph # (Auto) Nobles # (Auto) Eos # (Auto) Baso # (Auto) WBC Differential Diff Scan Differential Comment Basophilic Stippling Sodium Potassium Chloride Carbon Dioxide Anion Gap BUN Creatinine Estimated GFR POC Glucose 126 H Random Glucose Calcium Total Bilirubin AST ALT Alkaline Phosphatase Troponin I Total Protein Albumin Hep-Induced Plt Ab Gabbi HIPA Patient OD Imaging Studies: Impressions Chest X-Ray 01/20/18 07:39 CONCLUSION: Stable appearance of the chest. Medications: Active Medications Generic Name Dose Route Start Last Admin Trade Name Freq PRN Reason Stop Dose Admin Acetaminophen 650 mg 01/10/18 15:44 01/19/18 00:37 Tylenol PO 650 mg Q4H PRN Administration Temp > 100.4 Hydrocodone Bitart/Acetaminophen 1 tab 01/18/18 11:47 01/19/18 12:23 [place] 5/325 PO 1 tab Q4H PRN Administration Pain 1-5 Albuterol 1 ampul 01/15/18 21:48 01/20/18 00:16 Duoneb Neb (Prn) NEB 1 ampul Q2HR NEB PRN Administration WHEEZING Apixaban 2.5 mg 01/20/18 09:00 01/20/18 10:06 Eliquis PO Not Given BID [place] Epoetin Justice 4,000 unit 01/10/18 19:42 01/18/18 08:45 Epogen Inj IV.PUSH 4,000 unit UNSCH PRN Administration SEE LABEL COMMENTS Gentamicin Sulfate 20 mg 01/10/18 19:42 01/18/18 08:48 Gentamicin Inj OTHER 20 mg WITH DIALYSIS PRN Administration Dwell Gentamycin Lock Heparin Sodium (Porcine) 1,000 units 01/10/18 19:42 01/18/18 08:48 Heparin Inj OTHER 1,000 units WITH DIALYSIS PRN Administration Dwell Heparin to Fill Catheter Albumin Human 100 mls @ 60 mls/hr 01/10/18 19:42 01/11/18 10:29 Flexbumin 25% Inj IV.SIG Infused WITH DIALYSIS PRN Infusion hypotension / volume replace Norepinephrine Bitartrate 4 mg 250 mls @ 7.5 mls/hr 01/11/18 07:29 01/18/18 07:15 / Sodium Chloride IV.SIG Infused TITRATE PRN Titration Per Protocol Protocol 2 MCG/MIN Vancomycin HCl 1,000 mg/ 250 mls @ 250 mls/hr 01/13/18 15:00 01/18/18 10:21 Sodium Chloride IV.SIG Infused WITH DIALYSIS [place] Infusion Piperacillin/Tazobactam/Dextrose 50 mls @ 100 mls/hr 01/12/18 17:00 01/20/18 10:06 Zosyn 2.25 Gm Premix IV.SIG 100 mls/hr Q8H [place] Administration Morphine Sulfate 2 mg 01/10/18 20:40 01/18/18 11:43 Morphine Inj IV.PUSH 2 mg Q4H PRN Administration BREAKTHROUGH PAIN Pantoprazole Sodium 40 mg 01/16/18 09:00 01/20/18 10:06 Protonix PO 40 mg DAILY [place] Administration Senna/Docusate Sodium 1 tab 01/10/18 21:00 01/20/18 10:06 Aidee-Colace PO 1 tab BID [place] Administration Objective Remarks: GENERAL: Elderly female resting in bed talking on the phone on approach. She appears mildly anxious. SKIN: Warm and dry. HEAD: Normocephalic. EYES: No scleral icterus. No injection or drainage. NECK: Supple, trachea midline. No JVD or lymphadenopathy. CARDIOVASCULAR: + S1/S2. Regular rate and rhythm. RESPIRATORY: Clear anteriorly. Nasal cannula laying next to patient on pillow GASTROINTESTINAL: Abdomen soft, non-tender, nondistended. Right side ileostomy bag in place with soft brown stool noted in bag EXTREMITIES: Left upper extremity edematous. Mild serous fluid oozing noted to healing incision to left upper arm. No swelling to bilateral lower extremities. MUSCULOSKELETAL: Adequate muscle tone. NEUROLOGICAL: No obvious focal deficit. Awake, alert, and oriented x3. Assessment/Plan (1) DVT (deep venous thrombosis) Code(s): I82.409 - Acute embolism and thrombosis of unspecified deep veins of unspecified lower extremity Status: Chronic (2) ESRD on dialysis Code(s): N18.6 - End stage renal disease; Z99.2 - Dependence on renal dialysis Status: Chronic (3) Sepsis Code(s): A41.9 - Sepsis, unspecified organism Status: Acute - Plan 77-year-old female with multiple comorbidities including end-stage renal disease , admitted with cellulitis to recent AV fistula graft. Hematology consulted for thrombocytopenia 1. Patient scheduled for VQ scan this morning to rule out possibility of pulmonary embolism. I discussed with patient that if this is positive we will place her on heparin drip until cardiology can evaluate patient for possible intervention. 2. Platelet counts much improved today. Anemia likely due to inflammation from current illness. 3. Further recommendations once VQ scan is resulted. (1) DVT (deep venous thrombosis) Qualifiers: DVT location: lower extremity
--- NOTE | 2018-01-20 11:22 | NM ---
EXAM DATE: 01/20/2018 11:00 AM EDT AGE/SEX: 77 years / Female INDICATIONS: Embolus. Dyspnea. CLINICAL DATA: This is the patient's initial encounter. Patient reports that signs and symptoms have been present for 1 day and indicates a pain score of 0/10. MEDICAL/SURGICAL HISTORY: Renal failure, chronic. Hypertension. Deep venous thrombosis. Pulm onary embolism. Colostomy. Ileostomy. COMPARISON: [facility], CHEST 1V SINGLE AP, 01/20/2018. . DOSE: 1.1 mCi Tc99m DTPA aerosol 8.6 mCi Tc99m MAA IV TECHNIQUE: Following five minutes of tidal breathing of DTPA aerosol, planar images of the lungs wer e performed in eight projections. The patient was then injected with MAA, and eight-view perfusion s can was performed. FINDINGS: There is a homogeneous pattern of aerosol delivery to the periphery of both lungs. No focal ventilat ory defects are seen. The perfusion lung scan demonstrates a homogenous pattern of uptake in both lungs. No segmental or s ubsegmental defects are seen. CONCLUSION: 1. Low probability of pulmonary embolism Electronically signed by: Tigre Hawk MD 01/20/2018 11:21 AM EDT
--- NOTE | 2018-01-20 11:56 | P.PNIM ---
Subjective Interval history: The patient said that she was having shortness of breath with minimal exertion. She was having associated chest tightness. She said she has had somewhat similar episodes with Eliantonietais in the past. She was interested in the results of her VQ scan. Discussed with nursing at the bedside. Physical Exam Vital signs: Vital Signs 01/19/18 12:00 01/19/18 16:00 01/19/18 16:25 Temperature 97.5 F L 97.2 F L Pulse Rate 85 87 Respiratory Rate 18 18 Blood Pressure 115/58 L 171/62 H 136/63 Pulse Oximetry 99 100 01/19/18 16:30 01/19/18 20:00 01/19/18 23:15 Temperature 97.9 F Pulse Rate 87 91 H 81 Respiratory Rate 12 18 30 H Blood Pressure 145/63 H 108/83 Pulse Oximetry 99 98 01/20/18 00:00 01/20/18 00:17 01/20/18 04:00 Temperature 97.8 F 97.8 F Pulse Rate 79 85 92 H Respiratory Rate 18 16 20 Blood Pressure 111/58 L 123/65 Pulse Oximetry 100 100 01/20/18 08:00 Temperature 97.3 F L Pulse Rate 86 Respiratory Rate 22 Blood Pressure 150/70 H Pulse Oximetry 100 Intake & Output 01/19/18 01/20/18 01/20/18 18:59 06:59 18:59 Intake Total 2059 / 2059 50 / 50 100 / 100 Output Total 150 / 150 Balance 1909 / 1909 50 / 50 100 / 100 Intake: IV 1100 / 1100 50 / 50 100 / 100 Zosyn 2.25 GM Premix 50 ML @ 100 / 100 50 / 50 100 / 100 100 mls/hr IV.SIG Q8H [facility] Rx#: [id number] Oral 960 / 960 Output: Stool Amount (Stoma) 150 / 150 Right Lower Abdomen 150 / 150 Other: # Voids 4 3 Narrative: GENERAL: Appears frail. HEENT: NC, AT. CARDIOVASCULAR: Normal rate and regular rhythm. Systolic murmur appreciated. RESPIRATORY: Good respiratory efforts. Breath sounds equal and clear to auscultation bilaterally. MUSCULOSKELETAL: Left AV graft present. There is swelling around it with minimal erythema and induration. Warm. No draining wounds. Tender to palpation. NEUROLOGICAL: Awake, alert and oriented x4. No focal neurologic deficits. Follows commands 4 - Urinary Catheter Management Indwelling Urethral Catheter Cath placed during this visit: yes, but has since been removed by the nurse Reason for continuing: Decision to DC catheter Insertion date: 01/10/18 Insertion time: 20:00 Removal date: 01/16/18 Removal time: 16:00 Results - Labs CBC & Chem 7: 01/20/18 05:16 01/20/18 07:43 Laboratory Results - last 24 hr 01/17/18 01/19/18 01/19/18 10:35 12:17 16:24 WBC RBC Hgb Hct MCV MCH MCHC RDW Plt Count MPV Prelim Diff (Auto) Neut % (Auto) Lymph % (Auto) Dickens % (Auto) Eos % (Auto) Baso % (Auto) Neut # (Auto) Lymph # (Auto) Dickens # (Auto) Eos # (Auto) Baso # (Auto) WBC Differential Diff Scan Differential Comment Basophilic Stippling Sodium Potassium Chloride Carbon Dioxide Anion Gap BUN Creatinine Estimated GFR POC Glucose 103 91 Random Glucose Calcium Total Bilirubin AST ALT Alkaline Phosphatase Troponin I Total Protein Albumin Hep-Induced Plt Ab Gabbi Negative HIPA Patient OD 0.061 01/19/18 01/20/18 01/20/18 21:32 05:16 07:43 WBC 6.5 RBC 2.49 L Hgb 8.3 L Hct 25.1 L MCV 101.1 H MCH 33.4 MCHC 33.0 RDW 17.5 H Plt Count 96 L D MPV 9.5 Prelim Diff (Auto) Slide review pending Neut % (Auto) 70.9 H Lymph % (Auto) 17.9 Dickens % (Auto) 9.6 H Eos % (Auto) 0.6 Baso % (Auto) 1.0 Neut # (Auto) 4.6 Lymph # (Auto) 1.2 Dickens # (Auto) 0.6 Eos # (Auto) 0.0 Baso # (Auto) 0.1 WBC Differential . Diff Scan Auto diff confirmed Differential Comment . Basophilic Stippling Faint H Sodium 134 L Potassium 4.9 Chloride 103 Carbon Dioxide 22.1 Anion Gap 9 BUN 30 H Creatinine 4.12 H Estimated GFR 11 L POC Glucose 113 H Random Glucose 102 Calcium 8.8 Total Bilirubin 0.4 AST 10 L ALT 11 Alkaline Phosphatase 126 H Troponin I Less than 0.02 L Total Protein 6.2 L Albumin 2.1 L Hep-Induced Plt Ab Gabbi HIPA Patient OD 01/20/18 01/20/18 08:03 11:45 WBC RBC Hgb Hct MCV MCH MCHC RDW Plt Count MPV Prelim Diff (Auto) Neut % (Auto) Lymph % (Auto) Dickens % (Auto) Eos % (Auto) Baso % (Auto) Neut # (Auto) Lymph # (Auto) Dick[place] # (Auto) Eos # (Auto) Baso # (Auto) WBC Differential Diff Scan Differential Comment Basophilic Stippling Sodium Potassium Chloride Carbon Dioxide Anion Gap BUN Creatinine Estimated GFR POC Glucose 126 H 118 H Random Glucose Calcium Total Bilirubin AST ALT Alkaline Phosphatase Troponin I Total Protein Albumin Hep-Induced Plt Ab Gabbi HIPA Patient OD - Imaging Impressions Chest X-Ray 01/20/18 07:39 CONCLUSION: Stable appearance of the chest. Pulmonary Perfusion Imaging 01/20/18 07:57 CONCLUSION: 1. Low probability of pulmonary embolism Assessment and Plan - Assessment (1) AVF (arteriovenous fistula) Code(s): I77.0 - Arteriovenous fistula, acquired Status: Acute (2) ESRD on dialysis Code(s): N18.6 - End stage renal disease; Z99.2 - Dependence on renal dialysis Status: Chronic (3) Hypotension Code(s): I95.9 - Hypotension, unspecified Status: Acute (4) Hypoglycemia Code(s): E16.2 - Hypoglycemia, unspecified Status: Acute - Plan Septic shock 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 Blood cultures negative. Septic shock resolved. Off pressors. -Infectious disease following. Currently on vancomycin and Zosyn. -Vascular surgery following. CT of the shoulder indicates fluid collection. Surgery recommending continuing current care at this time. History of DVT/pulmonary embolism V/Q scan with low probability for PE. -change Eliquis to heparin gtt/ Coumadin. -DuoNeb every 6 hours scheduled and as needed. Dyspnea/ Bradycardia Pt with symptomatic bradycardia. Cardiology consult appreciated. -obtain recent cath report. -echo pending. -nebs and oxygen as needed. -d/c Lopressor. History of colostomy with reversal, followed by ileostomy/Presacral fluid collection GI following. S/P EGD, she has severe esophageal stricture status post dilation with a balloon, she also has severe esophagitis biopsy was done. Ileoscopy was normal. 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 -Continue PPI -Ileostomy care -follow pathology. ESRD Patient has end-stage renal disease and is on Saturday, , Saturday schedule for dialysis. -Nephrology Dr. Yanez is following. Thrombocytopenia: May be s/t sepsis. Hematology consult appreciated. HIT panel negative. -follow up with hematology. -Continue to monitor CBC. PPx: Heparin gtt/ Coumadin
[2018-01-20 13:47] LABS: Hematocrit 23.2 % (35.0-46.0); Hemoglobin 7.5 gm/dL (11.6-15.3); Mean Corpuscular HGB Conc 32.4 % (32.0-36.0); Mean Corpuscular Hemoglobin 32.7 pg (27.0-34.0); Mean Corpuscular Volume 100.8 fL (80.0-100.0); Platelet Count 90 th/mm3 (150-450); Red Cell Distribution Width 17.9 % (11.6-17.2); White Blood Count 6.3 th/mm3 (4.0-11.0)
[2018-01-20 13:53] LABS: Activated Partial Thrombo Time 22.9 sec (24.3-30.1); INR 1.1 Ratio; Prothrombin Time 11.2 sec (9.8-11.6)
--- NOTE | 2018-01-20 13:53 | P.PNNP ---
Subjective Interval history: patient treated for Cellulitis Physical Exam Vital signs: Vital Signs 01/19/18 16:00 01/19/18 16:25 01/19/18 16:30 Temperature 97.2 F L Pulse Rate 87 87 Respiratory Rate 18 12 Blood Pressure 171/62 H 136/63 Pulse Oximetry 100 01/19/18 20:00 01/19/18 23:15 01/20/18 00:00 Temperature 97.9 F 97.8 F Pulse Rate 91 H 81 79 Respiratory Rate 18 30 H 18 Blood Pressure 145/63 H 108/83 111/58 L Pulse Oximetry 99 98 100 01/20/18 00:17 01/20/18 04:00 01/20/18 08:00 Temperature 97.8 F 97.3 F L Pulse Rate 85 92 H 86 Respiratory Rate 16 20 22 Blood Pressure 123/65 150/70 H Pulse Oximetry 100 100 Intake & Output 01/19/18 01/20/18 01/20/18 18:59 06:59 18:59 Intake Total 2059 / 2059 50 / 50 100 / 100 Output Total 150 / 150 Balance 1909 / 1909 50 / 50 100 / 100 Intake: IV 1100 / 1100 50 / 50 100 / 100 Zosyn 2.25 GM Premix 50 ML @ 100 / 100 50 / 50 100 / 100 100 mls/hr IV.SIG Q8H [facility] Rx#: [id number] Oral 960 / 960 Output: Stool Amount (Stoma) 150 / 150 Right Lower Abdomen 150 / 150 Other: # Voids 4 3 - Constitutional no acute distress - Routine HEENT Exam Eye: Present: EOMI - Routine Neck Exam Present: supple - Routine Respiratory Exam Present: CTA bilaterally - Routine Abdominal Exam Present: soft - Urinary Catheter Management Indwelling Urethral Catheter Cath placed during this visit: yes, but has since been removed by the nurse Reason for continuing: Decision to DC catheter Insertion date: 01/10/18 Insertion time: 20:00 Removal date: 01/16/18 Removal time: 16:00 Assessment and Plan - Assessment (1) ESRD on dialysis Code(s): N18.6 - End stage renal disease; Z99.2 - Dependence on renal dialysis Status: Chronic Current visit: Yes (2) Hypertension Code(s): I10 - Essential (primary) hypertension Status: Acute Qualifiers: Hypertension type: essential hypertension Qualified Code(s): I10 - Essential (primary) hypertension (3) Sepsis Code(s): A41.9 - Sepsis, unspecified organism Status: Acute - Plan Patient has improved symptoms cellulitis have decreased, AV graft is patent Blood cultures negative Possibly skin infection is considered due to cellulitis Continue to observe hemodialysis on Saturday, and Saturday Continue to monitor
[2018-01-20] MEDS: Heparin Drip 25,000 UNIT/250 ML BAG IV.CONT PRN (14:39)
--- NOTE | 2018-01-20 20:27 | ECHRPT ---
Indication: CARDIOMYOPATHY CONCLUSIONS Normal left ventricular size and wall thickness. The left ventricular systolic function is normal wi th an estimated ejection fraction of 65%. No regional wall motion abnormalities are present. Mild mitral valve regurgitation. Mild mitral annular calcification. Mild calcification of both gilberto l valve leaflets tips. There is mild tricuspid valve regurgitation. The estimated pulmonary arterial pressure is 48 mmHg. Mild aortic valve sclerosis and calcification is present. Trace aortic valve regurgitation. Mild aortic stenosis with mean gradient 17 mm Hg. BP: / HR: Rhythm: Sinus MEASUREMENTS (Male / Female) Normal Values Technical Quality:Fair 2D ECHO LV Diastolic Diameter PLAX 4.0 cm 4.2 - 5.9 / 3.9 - 5.3 cm LV Systolic Diameter PLAX 3.1 cm IVS Diastolic Thickness 1.0 cm 0.6 - 1.0 / 0.6 - 0.9 cm LVPW Diastolic Thickness 1.0 cm 0.6 - 1.0 / 0.6 - 0.9 cm LV Relative Wall Thickness 0.5 RV Internal Dim ED PLAX 2.6 cm LVOT Diameter 1.3 cm Aortic Root Diameter 2.2 cm LA Systolic Diameter LX 3.6 cm 3.0 - 4.0 / 2.7 - 3.8 cm DOPPLER AV Peak Velocity 274.0 cm/s AV Peak Gradient 30.0 mmHg AV Mean Gradient 17.0 mmHg AV Velocity Time Integral 76.2 cm LVOT Peak Velocity 117.0 cm/s LVOT Peak Gradient 5.5 mmHg LVOT Velocity Time Integral 25.2 cm AV Area Cont Eq vti 0.4 cm AV Area Cont Eq pk 0.6 cm Mitral E Point Velocity 114.0 cm/s Mitral A Point Velocity 126.0 cm/s Mitral E to A Ratio 0.9 TR Peak Velocity 309.0 cm/s TR Peak Gradient 38.0 mmHg Right Atrial Pressure 10.0 mmHg Pulmonary Artery Systolic Pressu 48.2 mmHg Right Ventricular Systolic Press 48.2 mmHg PV Peak Velocity 69.2 cm/s PV Peak Gradient 1.9 mmHg FINDINGS LEFT VENTRICLE Normal left ventricular size and wall thickness. The left ventricular systolic function is normal wi th an estimated ejection fraction in the range of 60-65%. No regional wall motion abnormalities are presen t. RIGHT VENTRICLE Normal right ventricular size and systolic function. LEFT ATRIUM The left atrial size is normal. RIGHT ATRIUM The right atrial size is normal. ATRIAL SEPTUM The interatrial septum not well visualized. AORTA The aortic root and proximal ascending aorta are not well visualized. MITRAL VALVE Mild mitral valve regurgitation. Mild mitral annular calcification. Mild calcification of both gilberto l valve leaflets tips. AORTIC VALVE Mild aortic valve sclerosis and calcification is present. Trace aortic valve regurgitation. Mild aortic stenosis with mean gradient 17 mm Hg. TRICUSPID VALVE There is mild tricuspid valve regurgitation. The estimated pulmonary arterial pressure is 48 mmHg. PULMONARY VALVE No pulmonary valve regurgitation or stenosis. VESSELS The inferior vena cava is normal in size. PERICARDIUM No pericardial effusion. Terry Montilla MD (Electronically Signed) Final Date:20 January 2018 20:26 Amended: 20 January 2018 20:31
--- NOTE | 2018-01-20 21:45 | ECG ---
Date Performed: 01/20/2018 Time Performed: 08:09:26 PTAGE: 77 years EKG: Sinus rhythm NORMAL ECG PREVIOUS TRACING : 01/18/2018 15.29 Since the previous tracing, no significant change noted DOCTOR: Dustin Beltran Interpretating Date/Time 01/20/2018 21:45:15
[2018-01-21] MEDS: Piperacil/Tazo 2.25 GM Premix 50 ML IV.SIG SCH ×3 (03:21→17:34)
[2018-01-21 04:37] LABS: Baso # (Auto) 0.1 th/mm3 (0.0-0.2); Baso % (Auto) 1.1 % (0.0-2.0); Eos # (Auto) 0.1 th/mm3 (0.0-0.4); Hematocrit 26.3 % (35.0-46.0); Hemoglobin 8.5 gm/dL (11.6-15.3); Lymph # (Auto) 1.5 th/mm3 (1.0-4.8); Lymph % (Auto) 22.1 % (9.0-44.0); Mean Corpuscular HGB Conc 32.4 % (32.0-36.0); Mean Corpuscular Hemoglobin 32.8 pg (27.0-34.0); Mean Platelet Volume 9.2 fL (7.0-11.0); Mono # (Auto) 0.9 th/mm3 (0.0-0.9); Neut # (Auto) 4.1 th/mm3 (1.8-7.7); Neut % (Auto) 61.8 % (16.0-70.0); Platelet Count 126 th/mm3 (150-450); Red Blood Count 2.61 mil/mm3 (4.00-5.30); Red Cell Distribution Width 18.1 % (11.6-17.2); White Blood Count 6.6 th/mm3 (4.0-11.0)
[2018-01-21 04:50] LABS: Anion Gap 9 meq/L (5-15); Blood Urea Nitrogen 35 mg/dL (7-18); Calcium 8.9 mg/dL (8.5-10.1); Carbon Dioxide 20.7 meq/L (21.0-32.0); Chloride 103 meq/L (98-107); Glomerular Filtration Rate 9 mL/min (>89); Glucose,Random 99 mg/dL (74-106); Potassium 5.1 meq/L (3.5-5.1); Sodium 133 meq/L (136-145)
--- NOTE | 2018-01-21 07:21 | P.PNCA ---
Subjective Interval history: Denies dyspnea at rest. No CP, dizziness, palpitations. Slept well. Physical Exam Vital signs: Vital Signs 01/20/18 08:00 01/20/18 12:00 01/20/18 16:00 Temperature 97.3 F L 97.6 F 97.7 F Pulse Rate 86 91 H 83 Respiratory Rate 22 20 19 Blood Pressure 150/70 H 166/70 H 126/63 Pulse Oximetry 100 100 100 01/20/18 20:00 01/20/18 21:10 01/20/18 21:15 Temperature 97.8 F Pulse Rate 102 H Respiratory Rate 17 18 Blood Pressure 130/69 Pulse Oximetry 96 100 01/21/18 00:29 01/21/18 04:35 Temperature 97.8 F 98.4 F Pulse Rate 91 H 89 Respiratory Rate 18 16 Blood Pressure 140/59 L 111/57 L Pulse Oximetry 96 96 Intake & Output 01/20/18 01/21/18 01/21/18 18:59 06:59 18:59 Intake Total 1060 / 1060 680 / 680 Output Total 200 / 200 780 / 780 Balance 860 / 860 -100 / -100 Weight 67 kg Intake: IV 100 / 100 100 / 100 Zosyn 2.25 GM Premix 50 ML @ 100 / 100 100 / 100 100 mls/hr IV.SIG Q8H [place] Rx#: [id number] Oral 960 / 960 580 / 580 Output: Urine 480 / 480 Stool 300 / 300 Stool Amount (Stoma) 200 / 200 Right Lower Abdomen 200 / 200 Other: # Voids 3 - Constitutional no acute distress - Routine Neck Exam Absent: JVD - Routine Respiratory Exam Present: CTA bilaterally - Routine Cardiovascular Exam Present: RRR, S1, S2, murmur. Absent: gallop Comments: II/ diffuse systolic murmur. Mildly diminished S2. - Routine Abdominal Exam Present: soft, normoactive bowel sounds. Absent: tenderness, organomegaly - Routine Extremities Exam Absent: cyanosis, clubbing, edema - Urinary Catheter Management Indwelling Urethral Catheter Cath placed during this visit: yes, but has since been removed by the nurse Reason for continuing: Decision to DC catheter Insertion date: 01/10/18 Insertion time: 20:00 Removal date: 01/16/18 Removal time: 16:00 Assessment and Plan - Assessment (1) Bradycardia Code(s): R00.1 - Bradycardia, unspecified Status: Acute Plan: Stable overnight. HR's normal off beta stephanie therapy. Recommend keep off AV kristie suppressing drugs. (2) Dyspnea Code(s): R06.00 - Dyspnea, unspecified Status: Acute Plan: Stable overnight. No other signs or symptoms of CHF. No definable cardiac cause for her dyspnea. LV function by echo is excellent. No severe valvular disease. Patient reports normal cardiac cath about 2 months ago. (3) Chest pain Code(s): R07.9 - Chest pain, unspecified Status: Chronic Plan: Stable. Chronic intermittent atypical CP. Patient reports normal cardiac cath about 2 months ago. (4) Hypertension Code(s): I10 - Essential (primary) hypertension Status: Chronic Plan: Fluctuating BP's. Recommend outpatient monitoring, med adjustment. Recommend keep off AV kristie suppressing drugs. - Plan As above. Will f/u PRN. Code Status: full code Discussed Condition With: patient (2) Dyspnea Qualifiers: Dyspnea type: dyspnea on exertion Qualified Code(s): R06.09 - Other forms of dyspnea (3) Chest pain Qualifiers: Chest pain type: unspecified Qualified Code(s): R07.9 - Chest pain, unspecified (4) Hypertension Qualifiers: Hypertension type: essential hypertension Qualified Code(s): I10 - Essential (primary) hypertension
[2018-01-21] MEDS: Senna/Docusate Sodium 8.6/50 MG Tablet PO SCH ×2 (08:33→22:14)
[2018-01-21] MEDS: Heparin Drip 25,000 UNIT/250 ML BAG IV.CONT PRN (08:33)
[2018-01-21] MEDS: Heparin 10,000 UNITS/10 ML Vial (for IV use) OTHER PRN (14:39)
[2018-01-21] MEDS: Vancomycin Inj 1,000 MG in Sodium Chlor 0.9% Inj 250 ML IV.SIG SCH (14:40)
--- NOTE | 2018-01-21 16:08 | P.PNIM ---
Subjective Interval history: The patient wanted to know when she could go home. She said that she did not want to go back on Eliquis. She wondered why her arm was still swollen she wanted to know if she should have warm compresses. She said she got good news from the primary special education teacher. Discussed with nursing. Physical Exam Vital signs: Vital Signs 01/20/18 16:00 01/20/18 20:00 01/20/18 21:10 Temperature 97.7 F 97.8 F Pulse Rate 83 102 H Respiratory Rate 19 17 Blood Pressure 126/63 130/69 Pulse Oximetry 100 96 100 01/20/18 21:15 01/21/18 00:29 01/21/18 04:35 Temperature 97.8 F 98.4 F Pulse Rate 91 H 89 Respiratory Rate 18 18 16 Blood Pressure 140/59 L 111/57 L Pulse Oximetry 96 96 01/21/18 08:00 01/21/18 12:00 Temperature 97.6 F 97.7 F Pulse Rate 89 93 H Respiratory Rate 18 18 Blood Pressure 115/55 L 157/67 H Pulse Oximetry 99 98 Intake & Output 01/20/18 01/21/18 01/21/18 18:59 06:59 18:59 Intake Total 1060 / 1060 680 / 680 300 / 300 Output Total 200 / 200 780 / 780 3000 / 3000 Balance 860 / 860 -100 / -100 -2700 / -2700 Weight 67 kg Intake: IV 100 / 100 100 / 100 300 / 300 Heparin/D5W 25,000 U/250 mL 25, 250 / 250 000 unit In 250 ml @ 1,200 UNITS/HR 12 mls/hr IV.CONT TITRATE PRN Rx#:[id number] Zosyn 2.25 GM Premix 50 ML @ 100 / 100 100 / 100 50 / 50 100 mls/hr IV.SIG Q8H [place] Rx#: [id number] Oral 960 / 960 580 / 580 Output: Urine 480 / 480 Stool 300 / 300 Hemodialysis Amount 3000 / 3000 Stool Amount (Stoma) 200 / 200 Right Lower Abdomen 200 / 200 Other: # Voids 3 Date of Last Bowel Movement 01/21/18 Narrative: GENERAL: Appears frail. HEENT: NC, AT. CARDIOVASCULAR: Normal rate and regular rhythm. Systolic murmur appreciated. RESPIRATORY: Good respiratory efforts. Breath sounds equal and clear to auscultation bilaterally. MUSCULOSKELETAL: Left AV graft present. There is swelling around it with minimal erythema and induration. Warm. No draining wounds. Tender to palpation. NEUROLOGICAL: Awake, alert and oriented x4. No focal neurologic deficits. Follows commands 4 - Urinary Catheter Management Indwelling Urethral Catheter Cath placed during this visit: yes, but has since been removed by the nurse Reason for continuing: Decision to DC catheter Insertion date: 01/10/18 Insertion time: 20:00 Removal date: 01/16/18 Removal time: 16:00 Results - Labs CBC & Chem 7: 01/21/18 04:05 01/21/18 04:05 Laboratory Results - last 24 hr 01/20/18 01/20/18 01/20/18 21:14 21:20 21:20 WBC RBC Hgb Hct MCV MCH MCHC RDW Plt Count MPV Neut % (Auto) Lymph % (Auto) Gibson % (Auto) Eos % (Auto) Baso % (Auto) Neut # (Auto) Lymph # (Auto) Gibson # (Auto) Eos # (Auto) Baso # (Auto) WBC Differential Differential Comment APTT 43.4 H D Sodium Potassium Chloride Carbon Dioxide Anion Gap BUN Creatinine Estimated GFR POC Glucose 109 Random Glucose Calcium Troponin I Less than 0.02 L 01/21/18 01/21/18 01/21/18 04:05 04:05 04:05 WBC 6.6 RBC 2.61 L Hgb 8.5 L Hct 26.3 L MCV 101.0 H MCH 32.8 MCHC 32.4 RDW 18.1 H Plt Count 126 L D MPV 9.2 Neut % (Auto) 61.8 Lymph % (Auto) 22.1 Gibson % (Auto) 13.0 H Eos % (Auto) 2.0 Baso % (Auto) 1.1 Neut # (Auto) 4.1 Lymph # (Auto) 1.5 Gibson # (Auto) 0.9 Eos # (Auto) 0.1 Baso # (Auto) 0.1 WBC Differential . Differential Comment Auto diff final APTT 84.6 H D Sodium 133 L Potassium 5.1 Chloride 103 Carbon Dioxide 20.7 L Anion Gap 9 BUN 35 H Creatinine 4.68 H Estimated GFR 9 L POC Glucose Random Glucose 99 Calcium 8.9 Troponin I Less than 0.02 L 01/21/18 01/21/18 07:28 13:00 WBC RBC Hgb Hct MCV MCH MCHC RDW Plt Count MPV Neut % (Auto) Lymph % (Auto) Gibson % (Auto) Eos % (Auto) Baso % (Auto) Neut # (Auto) Lymph # (Auto) Gibson # (Auto) Eos # (Auto) Baso # (Auto) WBC Differential Differential Comment APTT 92.6 H* Sodium Potassium Chloride Carbon Dioxide Anion Gap BUN Creatinine Estimated GFR POC Glucose 115 H Random Glucose Calcium Troponin I Microbiology 01/20/18 13:51 Stool Stool Occult Blood (JOSE LUIS) - Final Hemoccult negative Assessment and Plan - Assessment (1) AVF (arteriovenous fistula) Code(s): I77.0 - Arteriovenous fistula, acquired Status: Acute (2) ESRD on dialysis Code(s): N18.6 - End stage renal disease; Z99.2 - Dependence on renal dialysis Status: Chronic (3) Hypotension Code(s): I95.9 - Hypotension, unspecified Status: Acute (4) Hypoglycemia Code(s): E16.2 - Hypoglycemia, unspecified Status: Acute (5) Diarrhea Code(s): R19.7 - Diarrhea, unspecified Status: Inactive - Plan Septic shock 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 Blood cultures negative. Septic shock resolved. Off pressors. -Infectious disease following. Currently on vancomycin and Zosyn. -Vascular surgery following. CT of the shoulder indicates fluid collection. Surgery recommending continuing current care at this time. History of DVT/pulmonary embolism V/Q scan with low probability for PE. -change Eliquis to heparin gtt/ Coumadin per patient request. Follow INR daily. -DuoNeb every 6 hours scheduled and as needed. Dyspnea/ Bradycardia Pt with symptomatic bradycardia. Cardiology consult appreciated. Echo with EF 65 %. -obtain recent cath report. -nebs and oxygen as needed. -d/c Lopressor. -add prednisone. History of colostomy with reversal, followed by ileostomy/Presacral fluid collection GI following. S/P EGD, she has severe esophageal stricture status post dilation with a balloon, she also has severe esophagitis biopsy was done. Ileoscopy was normal. 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 Biopsy indicative of chronic inflammatory bowel disease. -Continue PPI -Ileostomy care -follow up wit GI. ESRD Patient has end-stage renal disease and is on Saturday, , Saturday schedule for dialysis. -Nephrology Dr. Yanez is following. Thrombocytopenia: May be s/t sepsis. Hematology consult appreciated. HIT panel negative. -follow up with hematology. -Continue to monitor CBC. Improving. PPx: Heparin gtt/ Coumadin
--- NOTE | 2018-01-21 17:01 | P.PNNP ---
Subjective Interval history: Patient wants to go home Physical Exam Vital signs: Vital Signs 01/20/18 20:00 01/20/18 21:10 01/20/18 21:15 Temperature 97.8 F Pulse Rate 102 H Respiratory Rate 17 18 Blood Pressure 130/69 Pulse Oximetry 96 100 01/21/18 00:29 01/21/18 04:35 01/21/18 08:00 Temperature 97.8 F 98.4 F 97.6 F Pulse Rate 91 H 89 89 Respiratory Rate 18 16 18 Blood Pressure 140/59 L 111/57 L 115/55 L Pulse Oximetry 96 96 99 01/21/18 12:00 Temperature 97.7 F Pulse Rate 93 H Respiratory Rate 18 Blood Pressure 157/67 H Pulse Oximetry 98 Intake & Output 01/20/18 01/21/18 01/21/18 18:59 06:59 18:59 Intake Total 1060 / 1060 680 / 680 300 / 300 Output Total 200 / 200 780 / 780 3000 / 3000 Balance 860 / 860 -100 / -100 -2700 / -2700 Weight 67 kg Intake: IV 100 / 100 100 / 100 300 / 300 Heparin/D5W 25,000 U/250 mL 25, 250 / 250 000 unit In 250 ml @ 1,200 UNITS/HR 12 mls/hr IV.CONT TITRATE PRN Rx#:[id number] Zosyn 2.25 GM Premix 50 ML @ 100 / 100 100 / 100 50 / 50 100 mls/hr IV.SIG Q8H [place] Rx#: [id number] Oral 960 / 960 580 / 580 Output: Urine 480 / 480 Stool 300 / 300 Hemodialysis Amount 3000 / 3000 Stool Amount (Stoma) 200 / 200 Right Lower Abdomen 200 / 200 Other: # Voids 3 Date of Last Bowel Movement 01/21/18 - Constitutional no acute distress - Routine HEENT Exam Head: Present: normocephalic Eye: Present: EOMI - Routine Neck Exam Present: supple - Routine Respiratory Exam Present: CTA bilaterally - Routine Cardiovascular Exam Present: RRR - Routine Abdominal Exam Present: soft, normoactive bowel sounds - Routine Extremities Exam Present: full ROM - Urinary Catheter Management Indwelling Urethral Catheter Cath placed during this visit: yes, but has since been removed by the nurse Reason for continuing: Decision to DC catheter Insertion date: 01/10/18 Insertion time: 20:00 Removal date: 01/16/18 Removal time: 16:00 Assessment and Plan - Assessment (1) ESRD on dialysis Code(s): N18.6 - End stage renal disease; Z99.2 - Dependence on renal dialysis Status: Chronic Current visit: Yes (2) Hypertension Code(s): I10 - Essential (primary) hypertension Status: Chronic Qualifiers: Hypertension type: essential hypertension Qualified Code(s): I10 - Essential (primary) hypertension (3) Sepsis Code(s): A41.9 - Sepsis, unspecified organism Status: Acute - Plan Patient has improved symptoms cellulitis have decreased, AV graft is patent Blood cultures negative Possibly skin infection is considered due to cellulitis Continue to observe hemodialysis on Saturday, and Saturday Continue to monitor Hemodialysis done 3 L were removed tolerated well
[2018-01-21 17:49] LABS: Activated Partial Thrombo Time 59.6 sec (24.3-30.1); INR 1.5 Ratio; Prothrombin Time 14.7 sec (9.8-11.6)
[2018-01-21] MEDS: predniSONE 20 MG Tablet PO SCH (22:14)
[2018-01-22] MEDS: Piperacil/Tazo 2.25 GM Premix 50 ML IV.SIG SCH ×3 (01:31→16:52)
[2018-01-22 05:00] LABS: Hematocrit 26.4 % (35.0-46.0); Hemoglobin 8.7 gm/dL (11.6-15.3); Mean Corpuscular HGB Conc 32.9 % (32.0-36.0); Mean Corpuscular Hemoglobin 33.2 pg (27.0-34.0); Mean Platelet Volume 9.1 fL (7.0-11.0); Platelet Count 151 th/mm3 (150-450); Red Blood Count 2.62 mil/mm3 (4.00-5.30); Red Cell Distribution Width 18.1 % (11.6-17.2); White Blood Count 7.1 th/mm3 (4.0-11.0)
[2018-01-22 05:09] LABS: Activated Partial Thrombo Time 41.6 sec (24.3-30.1); INR 1.9 Ratio; Prothrombin Time 19.3 sec (9.8-11.6)
[2018-01-22] MEDS: predniSONE 20 MG Tablet PO SCH ×2 (08:32→22:07)
[2018-01-22] MEDS: Senna/Docusate Sodium 8.6/50 MG Tablet PO SCH ×2 (08:33→22:08)
--- NOTE | 2018-01-22 09:21 | P.PNVS ---
Subjective Subjective/Hospital Course: Looks good arm still edematous but no erythema subjectively her breathing is better Objective Vital Signs / I&O: Vital Signs 01/21/18 12:00 01/21/18 16:00 01/21/18 20:00 Temperature 97.7 F 98.0 F Pulse Rate 93 H 80 Respiratory Rate 18 17 16 Blood Pressure 157/67 H 130/66 Pulse Oximetry 98 97 01/21/18 20:30 01/22/18 00:35 01/22/18 04:11 Temperature 97.8 F 96.9 F L 97.3 F L Pulse Rate 104 H 102 H 100 H Respiratory Rate 18 16 16 Blood Pressure 124/57 L 97/50 L 155/73 H Pulse Oximetry 97 97 96 01/22/18 08:00 01/22/18 08:32 Temperature 98.2 F Pulse Rate 99 H Respiratory Rate 16 20 Blood Pressure 158/69 H Pulse Oximetry 100 Intake & Output 01/21/18 01/22/18 01/22/18 18:59 06:59 18:59 Intake Total 725 / 725 580 / 580 50 / 50 Output Total 3375 / 3375 900 / 900 Balance -2650 / -2650 -320 / -320 50 / 50 Weight 67 kg Intake: IV 350 / 350 50 / 50 Heparin/D5W 25,000 U/250 mL 25, 250 / 250 000 unit In 250 ml @ 1,200 UNITS/HR 12 mls/hr IV.CONT TITRATE PRN Rx#:[id number] Zosyn 2.25 GM Premix 50 ML @ 100 / 100 50 / 50 100 mls/hr IV.SIG Q8H [place] Rx#: [id number] Oral 375 / 375 580 / 580 Output: Urine 500 / 500 Stool 375 / 375 400 / 400 Hemodialysis Amount 3000 / 3000 Other: # Voids 3 Date of Last Bowel Movement 01/21/18 Physical Exam: L UE edematous + thrill hand ok no incisional erythema + serous drainage Laboratory Results - last 24 hr 01/21/18 01/21/18 01/21/18 13:00 16:24 22:15 WBC RBC Hgb Hct MCV MCH MCHC RDW Plt Count MPV PT 14.7 H INR 1.5 APTT 92.6 H* 59.6 H D 37.4 H D 01/22/18 01/22/18 04:38 04:38 WBC 7.1 RBC 2.62 L Hgb 8.7 L Hct 26.4 L MCV 101.0 H MCH 33.2 MCHC 32.9 RDW 18.1 H Plt Count 151 MPV 9.1 PT 19.3 H INR 1.9 APTT 41.6 H Impressions Pulmonary Perfusion Imaging 01/20/18 07:57 CONCLUSION: 1. Low probability of pulmonary embolism Assessment and Plan - Assessment (1) ESRD on dialysis Code(s): N18.6 - End stage renal disease; Z99.2 - Dependence on renal dialysis Status: Chronic - Plan Patent AVG and she has an ipsilateral catheter that likely is causing central venous stenosis. Expectant management - arm elevation Dry gauze in axilla will clear access for use in about 1 week ok to discharge from a vascular surgery standpoint with f/u 1 week in my clinic Robles Ventura MD FACS RPVI respiratory care assistant [facility] - Heart and Vascular Surgery at [facility] [phone]
[2018-01-22] MEDS: Heparin Drip 25,000 UNIT/250 ML BAG IV.CONT PRN (11:43)
--- NOTE | 2018-01-22 13:26 | P.PNID ---
Subjective Remarks: cleared by vascular no fever c/o LUE pain CT shoulder with 7.8 cm axillae fluid collectio pt co SOB Antibiotics: vanco Allergies/Adverse Reactions: Allergies Sulfa (Sulfonamide Antibiotics) Allergy (Verified 01/10/18 12:23) Swelling Objective Vital Signs 01/21/18 16:00 01/21/18 20:00 01/21/18 20:30 Temperature 98.0 F 97.8 F Pulse Rate 80 104 H Respiratory Rate 17 16 18 Blood Pressure 130/66 124/57 L Pulse Oximetry 97 97 01/22/18 00:35 01/22/18 04:11 01/22/18 08:00 Temperature 96.9 F L 97.3 F L 98.2 F Pulse Rate 102 H 100 H 99 H Respiratory Rate 16 16 16 Blood Pressure 97/50 L 155/73 H 158/69 H Pulse Oximetry 97 96 100 01/22/18 08:32 01/22/18 09:48 01/22/18 12:00 Temperature 97.8 F Pulse Rate 93 H Respiratory Rate 20 20 18 Blood Pressure 132/61 Pulse Oximetry 97 Intake & Output 01/21/18 01/22/18 01/22/18 18:59 06:59 18:59 Intake Total 725 / 725 580 / 580 300 / 300 Output Total 3375 / 3375 900 / 900 Balance -2650 / -2650 -320 / -320 300 / 300 Weight 67 kg Intake: IV 350 / 350 300 / 300 Heparin/D5W 25,000 U/250 mL 25, 250 / 250 250 / 250 000 unit In 250 ml @ 1,200 UNITS/HR 12 mls/hr IV.CONT TITRATE PRN Rx#:[id number] Zosyn 2.25 GM Premix 50 ML @ 100 / 100 50 / 50 100 mls/hr IV.SIG Q8H [place] Rx#: [id number] Oral 375 / 375 580 / 580 Output: Urine 500 / 500 Stool 375 / 375 400 / 400 Hemodialysis Amount 3000 / 3000 Other: # Voids 3 Date of Last Bowel Movement 01/21/18 01/20/18 13:51 Stool Stool Occult Blood (JOSE LUIS) - Final Hemoccult negative Lab - Hematology Results 01/20/18 01/21/18 01/22/18 13:19 04:05 04:38 WBC 6.3 6.6 7.1 RBC 2.30 L 2.61 L 2.62 L Hgb 7.5 L 8.5 L 8.7 L Hct 23.2 L 26.3 L 26.4 L MCV 100.8 H 101.0 H 101.0 H MCH 32.7 32.8 33.2 MCHC 32.4 32.4 32.9 RDW 17.9 H 18.1 H 18.1 H Plt Count 90 L 126 L D 151 MPV 9.0 9.2 9.1 Neut % (Auto) 61.8 Lymph % (Auto) 22.1 Faulk % (Auto) 13.0 H Eos % (Auto) 2.0 Baso % (Auto) 1.1 Neut # (Auto) 4.1 Lymph # (Auto) 1.5 Faulk # (Auto) 0.9 Eos # (Auto) 0.1 Baso # (Auto) 0.1 WBC Differential . Differential Comment Auto diff final Lab - Chemistry Results 01/20/18 01/20/18 01/21/18 21:14 21:20 04:05 Sodium 133 L Potassium 5.1 Chloride 103 Carbon Dioxide 20.7 L Anion Gap 9 BUN 35 H Creatinine 4.68 H Estimated GFR 9 L POC Glucose 109 Random Glucose 99 Calcium 8.9 Troponin I Less than 0.02 L Less than 0.02 L 01/21/18 07:28 Sodium Potassium Chloride Carbon Dioxide Anion Gap BUN Creatinine Estimated GFR POC Glucose 115 H Random Glucose Calcium Troponin I Imaging: ITS Impressions Abdomen/Pelvis CT 01/11/18 00:00 CONCLUSION: 1. Smooth margin low density area in the presacral soft tissues could represent postsurgical change, fluid, or possibly abscess. There is no induration of the surrounding soft tissues. 2. No dilated loops of small or large bowel. 3. Mild bibasilar atelectasis without evidence of pleural effusion. Venous Doppler Study 01/11/18 07:38 CONCLUSION: 1. No deep venous thrombosis in the visualized veins. 2. AV fistula is patent. Elbow CT 01/14/18 00:00 CONCLUSION: 1. Soft tissue swelling within the subcutaneous fat at the upper arm and forearm. 2. Vascular graft seen in the anterior medial upper arm. Shoulder CT 01/17/18 00:00 CONCLUSION: 1. 7.8 cm low-density mass in the left axillary region likely related to a fluid collection. There are small focus of air within this. This can be consistent with the patient's history of an abscess in this region. 2. Vascular graft in the left upper arm. No comment can be made about the patency of this without contrast. Chest X-Ray 01/20/18 07:39 CONCLUSION: Stable appearance of the chest. Pulmonary Perfusion Imaging 01/20/18 07:57 CONCLUSION: 1. Low probability of pulmonary embolism Physical Exam: GENERAL: Mild distress. Looks tired and SOB SKIN: Warm and dry. EYES: Pupils equal and round. No scleral icterus. No injection or drainage. ENT: No nasal bleeding or discharge. Mucous membranes pink and moist. NECK: Trachea midline. No JVD. CARDIOVASCULAR: Regular rate and rhythm. RESPIRATORY: No accessory muscle use. Clear to auscultation. Breath sounds equal bilaterally. GASTROINTESTINAL: Abdomen soft, non-tender, distended. Hepatic and splenic margins not palpable. MUSCULOSKELETAL: Extremities without clubbing, cyanosis, persistent firma edema and erythema of LUE no change since last visit Proximal arm and axilla induration also seemed to improve No fluctuance NEUROLOGICAL: Awake and alert. No obvious cranial nerve deficits. Motor grossly within normal limits. Five out of 5 muscle strength in the arms and legs. Normal speech. PSYCHIATRIC: Appropriate mood and affect; insight and judgment normal. Assessment and Plan - Plan Sepsis: fever, hypotension, leukocytosis > 15, lactic acidosis (2.7) imroved clinically leukocytosis resolved source is gualberto AQUINO where she has a recent fistula, however other source can be a culprit, such as GI Fluid collection in axilla ? hematoma vs abscess Proctitis on sigmoidoscopy cont vanco x 2 more weeks Would repeat CT if not resolving after line removed to re-eval her fluid collection OPAT for vanco with HD OK to dc from ID [employer] marina Ventura: dw case mn
--- NOTE | 2018-01-22 13:30 | P.DCO ---
Post Hospital Infusion Therapy Location of Infusion Therapy: Dialysis Center Patient Weight: 67 kg - Diagnosis (1) Surgical site infection Code(s): T81.4XXA - Infection following a procedure, initial encounter (2) Sepsis Code(s): A41.9 - Sepsis, unspecified organism - Administer Medication Vancomycin Dose: 1 gram IV Directions: q 48 hours with Hemodialysis //Sat Start Treatment: 01/22/18 Stop Treatment: 02/04/18 - Additional Information Venous Access: Tunneled Catheter Additional Instructions: [x] Peripheral flush and dressing changes per protocol [x] Implanted port and central personal lines account executive: * Implanted port: 10 ml Normal Saline followed by 5 ml Heparin 100 units/ml Heparin flush after each use and monthly to maintain. [] May leave port accessed during therapy. [] May leave peripheral site accessed for duration of therapy. [x] If patient has SOB or respiratory distress, check oxygen saturation. If less than 90% or clinical signs of respiratory distress, administer oxygen at 2 L/min. via nasal cannula and notify physician. [x] Anaphylaxis/Reaction orders: * Stop infusion. * Keep IV line open with saline flush. * Notify physician. * Monitor vital signs every 15 minutes until symptoms resolve. * Check Oxygen saturation; Oxygen at 2 L/min. via nasal cannula if less than 90% or clinical signs of respiratory distress. * Administer diphenhydramine (Benadryl) 25 mg IV STAT, (unless patient has received as pre-med). May repeat once, if necessary. * Solu-Cortef 250 mg IVP over 30-60 seconds, use 100 mg vials for each dissolution. * Epinephrine (1mg/1 ml) 0.3 mg subcutaneously or IVP now with any signs of respiratory distress. * Check with physician for new additional pre-med orders if patient is re- challenged or re-treated. [x] May remove PICC line when treatment complete, after confirming with Physician. [x] If the patient is admitted to the hospital, the ED, or transferred via [facility] , complete transfer form including medication reconciliation order sheet. Weekly Labs: Vancomycin Trough (each saturday before HD) Allergies Sulfa (Sulfonamide Antibiotics) Allergy (Verified 01/10/18 12:23) Swelling
--- NOTE | 2018-01-22 14:15 | P.PNIM ---
Subjective Interval history: The patient was feeling well. She was hoping to go home tomorrow. She denied any diarrhea. She says the pain in her left arm is tolerable. Discussed with nursing at the bedside. Physical Exam Vital signs: Vital Signs 01/21/18 16:00 01/21/18 20:00 01/21/18 20:30 Temperature 98.0 F 97.8 F Pulse Rate 80 104 H Respiratory Rate 17 16 18 Blood Pressure 130/66 124/57 L Pulse Oximetry 97 97 01/22/18 00:35 01/22/18 04:11 01/22/18 08:00 Temperature 96.9 F L 97.3 F L 98.2 F Pulse Rate 102 H 100 H 99 H Respiratory Rate 16 16 16 Blood Pressure 97/50 L 155/73 H 158/69 H Pulse Oximetry 97 96 100 01/22/18 08:32 01/22/18 09:48 01/22/18 12:00 Temperature 97.8 F Pulse Rate 93 H Respiratory Rate 20 20 18 Blood Pressure 132/61 Pulse Oximetry 97 Intake & Output 01/21/18 01/22/18 01/22/18 18:59 06:59 18:59 Intake Total 725 / 725 580 / 580 300 / 300 Output Total 3375 / 3375 900 / 900 Balance -2650 / -2650 -320 / -320 300 / 300 Weight 67 kg 67 kg Intake: IV 350 / 350 300 / 300 Heparin/D5W 25,000 U/250 mL 25, 250 / 250 250 / 250 000 unit In 250 ml @ 1,200 UNITS/HR 12 mls/hr IV.CONT TITRATE PRN Rx#:[id number] Zosyn 2.25 GM Premix 50 ML @ 100 / 100 50 / 50 100 mls/hr IV.SIG Q8H [place] Rx#: [id number] Oral 375 / 375 580 / 580 Output: Urine 500 / 500 Stool 375 / 375 400 / 400 Hemodialysis Amount 3000 / 3000 Other: # Voids 3 Date of Last Bowel Movement 01/21/18 Narrative: GENERAL: Appears frail. HEENT: NC, AT. CARDIOVASCULAR: Normal rate and regular rhythm. Systolic murmur appreciated. RESPIRATORY: Good respiratory efforts. Breath sounds equal and clear to auscultation bilaterally. MUSCULOSKELETAL: Left AV graft present. There is swelling around it with induration. Warm. No draining wounds. Tender to palpation. NEUROLOGICAL: Awake, alert and oriented x4. No focal neurologic deficits. Follows commands 4 - Urinary Catheter Management Indwelling Urethral Catheter Cath placed during this visit: yes, but has since been removed by the nurse Reason for continuing: Decision to DC catheter Insertion date: 01/10/18 Insertion time: 20:00 Removal date: 01/16/18 Removal time: 16:00 Results - Labs CBC & Chem 7: 01/22/18 04:38 01/21/18 04:05 Laboratory Results - last 24 hr 01/21/18 01/21/18 01/22/18 16:24 22:15 04:38 WBC 7.1 RBC 2.62 L Hgb 8.7 L Hct 26.4 L MCV 101.0 H MCH 33.2 MCHC 32.9 RDW 18.1 H Plt Count 151 MPV 9.1 PT 14.7 H INR 1.5 APTT 59.6 H D 37.4 H D 01/22/18 01/22/18 04:38 11:00 WBC RBC Hgb Hct MCV MCH MCHC RDW Plt Count MPV PT 19.3 H INR 1.9 APTT 41.6 H 46.0 H Assessment and Plan - Assessment (1) AVF (arteriovenous fistula) Code(s): I77.0 - Arteriovenous fistula, acquired Status: Acute (2) ESRD on dialysis Code(s): N18.6 - End stage renal disease; Z99.2 - Dependence on renal dialysis Status: Chronic (3) Hypotension Code(s): I95.9 - Hypotension, unspecified Status: Acute (4) Hypoglycemia Code(s): E16.2 - Hypoglycemia, unspecified Status: Acute (5) Diarrhea Code(s): R19.7 - Diarrhea, unspecified Status: Inactive - Plan Septic shock 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 Blood cultures negative. Septic shock resolved. Off pressors. -Infectious disease following. Currently on vancomycin and Zosyn. Will be discharged on vancomycin with dialysis. -Vascular surgery following. CT of the shoulder indicates fluid collection. Could be hematoma. Surgery recommending continuing current care at this time. History of DVT/pulmonary embolism V/Q scan with low probability for PE. -change Eliquis to heparin gtt/ Coumadin per patient request. Follow INR daily. 1.9. -DuoNeb every 6 hours scheduled and as needed. Dyspnea/ Bradycardia Pt with symptomatic bradycardia. Cardiology consult appreciated. Echo with EF 65 %. -obtain recent cath report. -nebs and oxygen as needed. -d/c Lopressor. -added prednisone. History of colostomy with reversal, followed by ileostomy/Presacral fluid collection GI following. S/P EGD, she has severe esophageal stricture status post dilation with a balloon, she also has severe esophagitis biopsy was done. Ileoscopy was normal. 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 Biopsy indicative of chronic inflammatory bowel disease. -Continue PPI -Ileostomy care -follow up wit GI as an outpt. ESRD Patient has end-stage renal disease and is on Saturday, , Saturday schedule for dialysis. -Nephrology Dr. Yanez is following. Thrombocytopenia: May be s/t sepsis. Hematology consult appreciated. HIT panel negative. -follow up with hematology. -Continue to monitor CBC. Improving. PPx: Heparin gtt/ Coumadin Discharge Planning: Anticipate d/c home with [facility] in AM
--- NOTE | 2018-01-22 14:17 | P.DCO ---
- Diagnosis (2) Dyspnea (6) DVT (deep venous thrombosis) - Physical Therapy Order: Evaluate and treat, Improve ambulation, Strength and gait training - Home Health Nursing Order: Medical education, Signs/symptoms of disease process, Medication education-adverse effect, Wound care and dressing changes, Nursing assessment with vital signs - Certification I have seen patient Leidy Hare on 01/22/18. My clinical findings support the need for the requested home health care services because: Limited mobility due to disease progression, Patient has SOB, Deconditioned with increased weakness, Limited ability to care for self, Infection with risk of complications I certify that my clinical findings support that this patient is homebound because: Post-op weakness, Unsteady gait/balance, Unsafe to leave home unassisted (2) Dyspnea Qualifiers: Dyspnea type: dyspnea on exertion Qualified Code(s): R06.09 - Other forms of dyspnea (6) DVT (deep venous thrombosis) Qualifiers: DVT location: lower extremity
[2018-01-22] MEDS ORDERED: Warfarin Consult Pharmacy 1 EACH OTHER SCH (15:00)
--- NOTE | 2018-01-22 15:05 | P.PNNP ---
Subjective Interval history: Doing well Physical Exam Vital signs: Vital Signs 01/21/18 16:00 01/21/18 20:00 01/21/18 20:30 Temperature 98.0 F 97.8 F Pulse Rate 80 104 H Respiratory Rate 17 16 18 Blood Pressure 130/66 124/57 L Pulse Oximetry 97 97 01/22/18 00:35 01/22/18 04:11 01/22/18 08:00 Temperature 96.9 F L 97.3 F L 98.2 F Pulse Rate 102 H 100 H 99 H Respiratory Rate 16 16 16 Blood Pressure 97/50 L 155/73 H 158/69 H Pulse Oximetry 97 96 100 01/22/18 08:32 01/22/18 09:48 01/22/18 12:00 Temperature 97.8 F Pulse Rate 93 H Respiratory Rate 20 20 18 Blood Pressure 132/61 Pulse Oximetry 97 Intake & Output 01/21/18 01/22/18 01/22/18 18:59 06:59 18:59 Intake Total 725 / 725 580 / 580 300 / 300 Output Total 3375 / 3375 900 / 900 Balance -2650 / -2650 -320 / -320 300 / 300 Weight 67 kg 67 kg Intake: IV 350 / 350 300 / 300 Heparin/D5W 25,000 U/250 mL 25, 250 / 250 250 / 250 000 unit In 250 ml @ 1,200 UNITS/HR 12 mls/hr IV.CONT TITRATE PRN Rx#:[id number] Zosyn 2.25 GM Premix 50 ML @ 100 / 100 50 / 50 100 mls/hr IV.SIG Q8H [place] Rx#: [id number] Oral 375 / 375 580 / 580 Output: Urine 500 / 500 Stool 375 / 375 400 / 400 Hemodialysis Amount 3000 / 3000 Other: # Voids 3 Date of Last Bowel Movement 01/21/18 - Constitutional no acute distress - Routine HEENT Exam Head: Present: normocephalic - Routine Neck Exam Present: supple - Routine Respiratory Exam Present: stridor - Routine Cardiovascular Exam Present: RRR - Routine Abdominal Exam Present: soft, normoactive bowel sounds - Routine Extremities Exam Present: full ROM - Urinary Catheter Management Indwelling Urethral Catheter Cath placed during this visit: yes, but has since been removed by the nurse Reason for continuing: Decision to DC catheter Insertion date: 01/10/18 Insertion time: 20:00 Removal date: 01/16/18 Removal time: 16:00 Assessment and Plan - Assessment (1) ESRD on dialysis Code(s): N18.6 - End stage renal disease; Z99.2 - Dependence on renal dialysis Status: Chronic Current visit: Yes (2) Hypertension Code(s): I10 - Essential (primary) hypertension Status: Chronic Qualifiers: Hypertension type: essential hypertension Qualified Code(s): I10 - Essential (primary) hypertension (3) Sepsis Code(s): A41.9 - Sepsis, unspecified organism Status: Acute - Plan Patient has improved symptoms cellulitis have decreased, AV graft is patent Blood cultures negative Possibly skin infection is considered due to cellulitis Continue to observe hemodialysis on Saturday, and Saturday Next dialysis tomorrow
[2018-01-23] MEDS: Piperacil/Tazo 2.25 GM Premix 50 ML IV.SIG SCH ×3 (01:02→18:17)
[2018-01-23 07:53] LABS: Calcium 9.3 mg/dL (8.5-10.1); Carbon Dioxide 21.1 meq/L (21.0-32.0)
[2018-01-23 08:03] LABS: Potassium 7.3 meq/L (3.5-5.1)
[2018-01-23] MEDS: predniSONE 20 MG Tablet PO SCH (08:43)
[2018-01-23] MEDS: Senna/Docusate Sodium 8.6/50 MG Tablet PO SCH (08:44)
[2018-01-23] MEDS: Heparin 10,000 UNITS/10 ML Vial (for IV use) OTHER PRN (11:29)
[2018-01-23] MEDS: Vancomycin Inj 1,000 MG in Sodium Chlor 0.9% Inj 250 ML IV.SIG SCH (11:29)
--- NOTE | 2018-01-23 12:29 | P.PNNP ---
Subjective Interval history: Patient seen during hemodialysis Physical Exam Vital signs: Vital Signs 01/22/18 16:00 01/22/18 16:51 01/22/18 18:05 Temperature 97.8 F Pulse Rate 102 H Respiratory Rate 19 20 18 Blood Pressure 154/70 H Pulse Oximetry 99 01/22/18 20:00 01/23/18 00:00 01/23/18 04:00 Temperature 98.1 F 97.8 F 97.9 F Pulse Rate 108 H 95 H 94 H Respiratory Rate 20 20 16 Blood Pressure 128/59 L 134/70 130/63 Pulse Oximetry 99 98 98 01/23/18 06:23 01/23/18 08:00 Temperature 97.4 F L Pulse Rate 91 H 90 Respiratory Rate 18 Blood Pressure 144/65 H Pulse Oximetry 97 Intake & Output 01/22/18 01/23/18 01/23/18 18:59 06:59 18:59 Intake Total 900 / 900 Output Total 75 / 75 Balance 825 / 825 Weight 67 kg Intake: IV 400 / 400 Heparin/D5W 25,000 U/250 mL 25, 250 / 250 000 unit In 250 ml @ 1,200 UNITS/HR 12 mls/hr IV.CONT TITRATE PRN Rx#:[id number] Zosyn 2.25 GM Premix 50 ML @ 150 / 150 100 mls/hr IV.SIG Q8H [place] Rx#: [id number] Oral 500 / 500 Output: Stool 75 / 75 Other: # Voids 3 5 Date of Last Bowel Movement 01/22/18 - Constitutional no acute distress - Routine HEENT Exam Head: Present: normocephalic Eye: Present: EOMI - Routine Neck Exam Present: supple - Routine Respiratory Exam Present: CTA bilaterally - Routine Cardiovascular Exam Present: RRR - Routine Abdominal Exam Present: soft, normoactive bowel sounds - Routine Extremities Exam Present: edema (Left arm swelling), full ROM - Urinary Catheter Management Indwelling Urethral Catheter Cath placed during this visit: yes, but has since been removed by the nurse Reason for continuing: Decision to DC catheter Insertion date: 01/10/18 Insertion time: 20:00 Removal date: 01/16/18 Removal time: 16:00 Assessment and Plan - Assessment (1) ESRD on dialysis Code(s): N18.6 - End stage renal disease; Z99.2 - Dependence on renal dialysis Status: Chronic Current visit: Yes (2) Hypertension Code(s): I10 - Essential (primary) hypertension Status: Chronic Qualifiers: Hypertension type: essential hypertension Qualified Code(s): I10 - Essential (primary) hypertension (3) Sepsis Code(s): A41.9 - Sepsis, unspecified organism Status: Acute - Plan Patient has improved symptoms cellulitis have decreased, AV graft is patent Blood cultures negative Possibly skin infection is considered due to cellulitis Continue to observe hemodialysis on Saturday, and Saturday Seen during dialysis tolerating it well ultrafiltration 2.5 L on 1K bath potassium was elevated at 7.3 Repeat postdialysis Diet change to low potassium diet
--- NOTE | 2018-01-23 13:50 | ECG ---
Date Performed: 01/23/2018 Time Performed: 10:15:25 PTAGE: 77 years EKG: Sinus rhythm NORMAL ECG Since the PREVIOUS TRACING , no significant change noted PREVIOUS TRACIN01/20/2018 08.09 DOCTOR: Marcos Pérez Interpretating Date/Time 01/23/2018 13:47:36
[2018-01-23 14:46] LABS: Activated Partial Thrombo Time 85.3 sec (24.3-30.1); INR 4.3 Ratio; Prothrombin Time 43.2 sec (9.8-11.6)
[2018-01-23 15:21] LABS: Calcium 8.1 mg/dL (8.5-10.1); Carbon Dioxide 29.1 meq/L (21.0-32.0); Potassium 3.6 meq/L (3.5-5.1)
[2018-01-23 15:59] VITALS: BP 137/63; PULSE 116; RESP 19; TEMP 97.5; O2SAT 100
--- NOTE | 2018-01-23 16:21 | P.DS ---
Date of admission: 01/10/18 18:55 Primary care physician: No Primary Care Physician Anticipated date of discharge: 01/23/18 Brief History from admission: This is a 77 year female with a PMH of HTN, H/o Perforated Diverticulitis s/p Colostomy, ESRD on HD / and s/p AVG placement 01/01/[address] Ventura who was transferred from [place] for admission due to LUE swelling. Pt reports left arm swelling x2 days in addition to generalized weakness and several episodes of diarrhea. C diff cultures sent in [place], pending results. Denies fever or chills. On arrival, has been hypotensive w/ BP 81/45, HR 89, O2 sat 100% on RA, Afebrile. Labs from today w/ WBC normal, Hgb 11.3, INR 1.0, K+ 5.3, Creatinine 7.0. Seen by Dr. Arash gonzalez/ no indication for surgical intervention at this time. S/p eval by Dr. Beau gonzalez/ plans for continued HD. Shortly after admission, pt also noted to by lethargic, BS 40's, s/p hypoglycemic protocol. Pt denies any complaints at this time, states "I'm hungry". DS: Diagnosis - Discharge Diagnosis (1) Bradycardia Status: Acute (2) Dyspnea Status: Acute (3) Hypotension Status: Acute (4) Sepsis Status: Acute (5) Surgical site infection Status: Acute (6) DVT (deep venous thrombosis) Status: Chronic (7) ESRD on dialysis Status: Chronic (8) AVF (arteriovenous fistula) Status: Acute (9) Hypoglycemia Status: Acute DS: Medications - Discharge Medications Prescriptions: hydrocodone-acetaminophen 1 tab PO Q4H PRN #18 tab PRN Reason: Pain pantoprazole 40 mg PO DAILY #30 tab prednisone 20 mg PO DAILY #5 tab warfarin 3 mg PO DAILY #30 tab DS: Summary Hospital Course: Septic shock Initially patient was hypotensive and received multiple fluid boluses. Patient was placed in the ICU for persistent hypotension and critical care medicine was consulted. The pt was receiving vancomycin and Zosyn renally dosed. We started Levophed. Left arm was red and swollen. Vascular surgery and ID were consulted. Blood cultures were negative. Septic shock resolved. Off pressors. CT of the shoulder indicates fluid collection. Surgery recommending continuing current care at this time with outpt follow-up. The pt will complete a course of vancomycin with dialysis on 02/04/18. The pt will be discharged with home health care. History of DVT/pulmonary embolism V/Q scan with low probability for PE. We changed Eliquis to heparin gtt/ Coumadin per patient request. INR jumped to 4.3 on the day of discharge. We have instructed the pt to hold Coumadin and have her INR checked daily. Her primary will guide further Coumadin therapy. She will have home health care. Dyspnea/ Bradycardia Pt with symptomatic bradycardia. Cardiology was consulted. Echo with EF 65%. The pt received nebs and oxygen as needed. Cardiology recommended discontinuing Lopressor for symptomatic bradycardia. The pt was discharged with prednisone for dyspnea. She will follow-up with cardiology as an outpt. History of colostomy with reversal, followed by ileostomy/Presacral fluid collection GI was consulted. S/P EGD, she has severe esophageal stricture status post dilation with a balloon, she also has severe esophagitis biopsy was done. Ileoscopy was normal. 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 Biopsy indicative of chronic inflammatory bowel disease. She was continued on a PPI and ileostomy care. She will follow up wit GI as an outpt. ESRD Patient has end-stage renal disease and is on a Saturday, , Saturday schedule for dialysis. Nephrology was consulted. The pt was treated for an episode of hyperkalemia with dialysis. She will resume dialysis as scheduled as an outpt. Thrombocytopenia Hematology was consulted. HIT panel negative. Thought to be s/t sepsis. CBC has been improving. - Time Spent with Patient Total time spent providing and/or coordinating discharge services: Greater than 30 minutes - Quality: VTE Deep Vein Thrombosis/Pulmonary Embolism Present on Admission: No Exam Vital signs: Vital Signs 01/22/18 16:51 01/22/18 18:05 01/22/18 20:00 Temperature 98.1 F Pulse Rate 108 H Respiratory Rate 20 18 20 Blood Pressure 128/59 L Pulse Oximetry 99 01/23/18 00:00 01/23/18 04:00 01/23/18 06:23 Temperature 97.8 F 97.9 F Pulse Rate 95 H 94 H 91 H Respiratory Rate 20 16 Blood Pressure 134/70 130/63 Pulse Oximetry 98 98 01/23/18 08:00 01/23/18 15:58 Temperature 97.4 F L 97.5 F L Pulse Rate 90 116 H Respiratory Rate 18 19 Blood Pressure 144/65 H 137/63 Pulse Oximetry 97 100 Intake & Output 01/22/18 01/23/18 01/23/18 18:59 06:59 18:59 Intake Total 900 / 900 50 / 50 250 / 250 Output Total 75 / 75 2500 / 2500 Balance 825 / 825 50 / 50 -2250 / -2250 Weight 67 kg Intake: IV 400 / 400 50 / 50 250 / 250 Heparin/D5W 25,000 U/250 mL 25, 250 / 250 000 unit In 250 ml @ 1,200 UNITS/HR 12 mls/hr IV.CONT TITRATE PRN Rx#:[id number] Zosyn 2.25 GM Premix 50 ML @ 150 / 150 50 / 50 100 mls/hr IV.SIG Q8H [place] Rx#: [id number] Vancomycin Inj 1,000 MG In NS 250 / 250 Inj 250 ML @ 250 mls/hr IV.SIG WITH DIALYSIS [place] Rx#:[id number] Oral 500 / 500 Output: Stool 75 / 75 Hemodialysis Amount 2500 / 2500 Other: # Voids 3 5 Date of Last Bowel Movement 01/22/18 Narrative: GENERAL: Appears frail. HEENT: NC, AT. CARDIOVASCULAR: Normal rate and regular rhythm. Systolic murmur appreciated. RESPIRATORY: Good respiratory efforts. Breath sounds equal and clear to auscultation bilaterally. MUSCULOSKELETAL: Left AV graft present. There is swelling around it with induration. Warm. No draining wounds. Tender to palpation. NEUROLOGICAL: Awake, alert and oriented x4. No focal neurologic deficits. Follows commands 4 Results Procedures completed during hospitalization: As per hospital course Completed studies during hospitalization: Pending at discharge 01/13/18 13:12 Surgical [PTH] Routine Labs on day of discharge: Labs from last 24 hours 01/23/18 01/23/18 01/23/18 14:10 14:10 06:50 PT 43.2 H D INR 4.3 APTT 85.3 H D Sodium 139 131 L Potassium 3.6 D 7.3 H* Chloride 101 102 Carbon Dioxide 29.1 21.1 Anion Gap 9 8 BUN 14 40 H Creatinine 2.00 H 4.16 H Estimated GFR 24 L 10 L Random Glucose 162 H 103 Calcium 8.1 L D 9.3 - Impressions ITS Impressions Abdomen/Pelvis CT 01/11/18 00:00 CONCLUSION: 1. Smooth margin low density area in the presacral soft tissues could represent postsurgical change, fluid, or possibly abscess. There is no induration of the surrounding soft tissues. 2. No dilated loops of small or large bowel. 3. Mild bibasilar atelectasis without evidence of pleural effusion. Venous Doppler Study 01/11/18 07:38 CONCLUSION: 1. No deep venous thrombosis in the visualized veins. 2. AV fistula is patent. Elbow CT 01/14/18 00:00 CONCLUSION: 1. Soft tissue swelling within the subcutaneous fat at the upper arm and forearm. 2. Vascular graft seen in the anterior medial upper arm. Shoulder CT 01/17/18 00:00 CONCLUSION: 1. 7.8 cm low-density mass in the left axillary region likely related to a fluid collection. There are small focus of air within this. This can be consistent with the patient's history of an abscess in this region. 2. Vascular graft in the left upper arm. No comment can be made about the patency of this without contrast. Chest X-Ray 01/20/18 07:39 CONCLUSION: Stable appearance of the chest. Pulmonary Perfusion Imaging 01/20/18 07:57 CONCLUSION: 1. Low probability of pulmonary embolism Discharge Plan - Discharge Disposition Patient Disposition: /Home Health Service - Discharge Condition Condition: Stable - Discharge Order Discharge Orders: Discharge Order (Routine); Ordered 01/23/18 Ordered By: Jameson Huff Vascular Surgery Clear for Discharge (Routine); Ordered 01/22/18 Ordered By: Robles Ventura - Discharge Details Anticipated Discharge Date: 01/23/18 - Physicians Team Primary Care Provider: Primary Care José Luisi,Neema Attending Provider: Jameson Huff Other Providers: Sonu Tavarez MD ; Krysta Snyder MD ; Linda Harper MD ; Dennis Lopez MD ; Kristin Foster ; Hoang Yanez MD ; Susana [facility],Agency ; Oncall,Agency ; Terry Montilla MD - Rxs /Orders / Referrals /Forms Prescriptions: New hydrocodone-acetaminophen 5-325 mg Tablet 1 tab PO Q4H PRN (Reason: Pain) Qty: 18 RF: 0 pantoprazole 40 mg Tablet,Delayed Release (Dr/Ec) 40 mg PO DAILY Qty: 30 RF: 0 prednisone 20 mg Tablet 20 mg PO DAILY Qty: 5 RF: 0 vancomycin 1,000 mg Recon Soln 1,000 mg IV WITH DIALYSIS RF: 0 warfarin 3 mg Tablet 3 mg PO DAILY Qty: 30 RF: 0 Continue febuxostat [Uloric] 40 mg Tablet 40 mg PO DAILY ondansetron HCl [Zofran] 4 mg Tablet 8 mg PO TID PRN (Reason: Nausea) tramadol 50 mg Tablet 50 mg PO Q6H Discontinued apixaban [Eliquis] 2.5 mg Tablet 5 mg PO BID metoprolol tartrate 50 mg Tablet 50 mg PO BID Ambulatory Orders / Order Sets / DME: Bariatric Rollator/Extra (1 each) (Routine) Location: Determined by Patient Ordered By: Jameson Huff Prothrombin Time INR (Routine) Location: Determined by Patient Ordered By: Jameson Huff Referrals: Primary Care Neema Veliz [Primary Care Provider] - 01/27/18 () Robles Ventura MD [Physician] - See Instructions (Follow up appointment is on 01/29/18 at 1:30pm) Dewayne Yanez MD [Physician] - See Instructions (Dialysis as scheduled) - Discharge Instructions Patient Printed Instructions: Flexible Sigmoidoscopy (DC), Esophageal Dilation (DC), Incision and Drainage (DC), Thrombocytopenia (DC), Edema (DC), Upper Endoscopy (DC)
--- NOTE | 2018-01-23 16:34 | P.DCO ---
- Diagnosis (4) DVT (deep venous thrombosis) - Physical Therapy Order: Evaluate and treat, Improve ambulation, Strength and gait training - Home Health Nursing Order: Medical education, Signs/symptoms of disease process, Medication education-adverse effect, Wound care and dressing changes, Nursing assessment with vital signs, IV medication administration, Telehealth Instructions: Please check INR daily 01/24, 01/25, 01/26 and have results forwarded to Dr. Hayden Chong, who will guide Coumadin therapy. - Certification I have seen patient Leidy Hare on 01/23/18. My clinical findings support the need for the requested home health care services because: Limited mobility due to disease progression, Patient has SOB, Deconditioned with increased weakness, Limited ability to care for self, Infection with risk of complications I certify that my clinical findings support that this patient is homebound because: Post-op weakness, Unsteady gait/balance (4) DVT (deep venous thrombosis) Qualifiers: DVT location: lower extremity
== END 2018-01-23 19:45 | disposition home health service (06) ==
LOC: NEDDLT 11:48 → N03 18:55 → N07 01-17 06:07
PROVIDERS: ADMIT Hospitalist; ATTEND Hospitalist
PROC: PANENDO (2018-01-13 09:14)

== ENCOUNTER 2018-02-05 05:44 | Inpatient (IN) ==
[2018-02-05] MEDS ORDERED: Temazepam 15 MG Capsule PO PRN (14:33)
[2018-02-05] MEDS ORDERED: Acetaminophen 325 MG Tablet PO PRN ×2 (14:33→17:31)
--- NOTE | 2018-02-05 14:44 | P.HP ---
History of Present Illness Primary Care Physician: UNKNOWN Chief Complaint: abdominal pain around ileostomy site along with leak due to increase output History of Present Illness: 77 year female with a PMH of HTN, H/o Perforated Diverticulitis s/p Colostomy, ESRD on HD and s/p AVG placement 01/01/[address] Ventura, went to [facility] ED today for evaluation of several history of abdominal pain around ileostomy site associated with leak due to increased output. patient states, as a result of this, she missed 2 sessions of dialysis including last Saturday and yesterday. She is therefore short of breath as well. Patient states, she has not been able to follow-up with Dr. Ventura. While in the ED, she was found to have elevated potassium for which she was treated. CT abdomen ordered review questionable leak around suture of ileostomy, for which general surgery has been consulted. - Diagnosis (1) ESRD on dialysis (2) Cellulitis of left upper arm (3) Hyperkalemia Inpatient Certification: I certify that the inpatient services were ordered in accordance with Medicare regulations governing the order. This includes certification that hospital inpatient services are reasonable and necessary and in the case of services not specified as inpatient-only under 42 CFR 419.22(n), that they are appropriately provided as inpatient services in accordance to with the 2-midnight benchmark under 43 CFR 412.3(e) Estimated Total Length of Stay (Days): 2 Plans for Post Hospital Care: Not yet determined Review of Systems All other systems reviewed negative except as stated in HPI PMFSH - History History Provided By: Patient - Medical History Medical History: Medical History (Last Reviewed 02/05/18 @ 06:48 by Gary Barba) Absent parathyroid gland Anemia DVT (deep venous thrombosis) Diverticulitis of colon with perforation End stage renal disease on dialysis History of blood product transfusion Hx of hysterectomy Hypertension Pulmonary embolism Vascular dialysis catheter in place - Surgical History Surgical History: Surgical History (Last Reviewed 02/05/18 @ 06:48 by Gary Barba) Hx of colostomy Hx of ileostomy - Family History Family History: Family History (Last Reviewed 02/05/18 @ 06:48 by Gary Barba) Son Kidney disease Daughter Kidney disease - Tobacco History Second Hand Smoke Exposure: No Smoking Status: Never smoker - Alcohol History How Often Do You Have a Drink Containing Alcohol: Never - Substance Use History Substance History: No History of Abuse Medications and Allergies Active Medications: Active Medications Acetaminophen (Tylenol) 650 mg PO Q4H PRN PRN Reason: Temp > 100.4 Al Hydroxide/Mg Hydroxide (Milk Of Narayan Lam) 30 ml PO Q12H PRN PRN Reason: Mild Constipation Ondansetron HCl (Zofran Inj) 4 mg IV.PUSH Q6H PRN PRN Reason: NAUSEA OR VOMITING Temazepam (Restoril) 15 mg PO HS PRN PRN Reason: INSOMNIA Allergies Allergy/AdvReac Type Severity Reaction Status Date / Time Sulfa (Sulfonamide Allergy Swelling Verified 02/05/18 05:53 Antibiotics) Home Medications Medication Instructions Recorded Confirmed Type ondansetron HCl [Zofran] 8 mg PO TID PRN 01/10/18 02/05/18 History tramadol 50 mg PO Q6H 01/10/18 02/05/18 History metoprolol succinate 50 mg PO DAILY 02/05/18 02/05/18 History Exam Vital signs: Vital Signs 02/05/18 11:45 Pulse Rate 76 Respiratory Rate 21 Blood Pressure 150/66 H Pulse Oximetry 100 Narrative: GENERAL: NAD SKIN: Warm and dry. redness and erythema of left upper extremity HEAD: Atraumatic. Normocephalic. EYES: Pupils equal and round. No scleral icterus. No injection or drainage. ENT: No nasal bleeding or discharge. Mucous membranes pink and moist. NECK: Trachea midline. No JVD. CARDIOVASCULAR: Regular rate and rhythm. RESPIRATORY: No accessory muscle use. Clear to auscultation. Breath sounds equal bilaterally. GASTROINTESTINAL: Abdomen soft, non-tender, nondistended. Hepatic and splenic margins not palpable. Ileostomy bag in place with liquid stool MUSCULOSKELETAL: Extremities without clubbing, cyanosis, or edema. No obvious deformities. Left upper extremity increasing size NEUROLOGICAL: Awake and alert. No obvious cranial nerve deficits. Motor grossly within normal limits. Five out of 5 muscle strength in the arms and legs. Normal speech. PSYCHIATRIC: Appropriate mood and affect; insight and judgment normal. Caprini VTE Risk Assessment Caprini VTE Risk Assessment: Moderate/High Risk (score >= 2) Caprini Risk Assessment Model: Point Value = 1 Point Value = 2 Point Value = 3 Point Value = 5 Age 41-60 Minor surgery BMI > 25 kg/m2 Swollen legs Varicose veins or History of unexplained or recurrent spontaneous Oral contraceptives or hormone replacement Sepsis (< 1 month) Serious lung disease, including pneumonia (< 1 month) Abnormal pulmonary function Acute myocardial infarction Congestive heart failure (< 1 month) History of inflammatory bowel disease Medical patient at bed rest Age 61-74 Arthroscopic surgery Major open surgery (> 45 min) Laparoscopic surgery (> 45 min) Malignancy Confined to bed (> 72 hours) Immobilizing plaster cast Central venous access Age >= 75 History of VTE Family history of VTE Factor V Leiden Prothrombin [id number] Lupus anticoagulant Anticardiolipin antibodies Elevated serum homocysteine Heparin-induced thrombocytopenia Other congenital or acquired thrombophilia Stroke (< 1 month) Elective arthroplasty Hip, pelvis, or leg fracture Acute spinal cord injury (< 1 month) Prophylaxis Regimen: Total Risk Factor Score Risk Level Prophylaxis Regimen 0-1 Low Early ambulation 2 Moderate Order ONE of the following: *Sequential Compression Device (SCD) *Heparin 5000 units SQ BID 3-4 Higher Order ONE of the following medications: *Heparin 5000 units SQ TID *Enoxaparin/Lovenox 40 mg SQ daily (WT < 150 kg, CrCl > 30 mL/min) *Enoxaparin/Lovenox 30 mg SQ daily (WT < 150 kg, CrCl > 10-29 mL/min) *Enoxaparin/Lovenox 30 mg SQ BID (WT < 150 kg, CrCl > 30 mL/min) AND/OR *Sequential Compression Device (SCD) 5 or more Highest Order ONE of the following medications: *Heparin 5000 units SQ TID (Preferred with Epidurals) *Enoxaparin/Lovenox 40 mg SQ daily (WT < 150 kg, CrCl > 30 mL/min) *Enoxaparin/Lovenox 30 mg SQ daily (WT < 150 kg, CrCl > 10-29 mL/min) *Enoxaparin/Lovenox 30 mg SQ BID (WT < 150 kg, CrCl > 30 mL/min) AND *Sequential Compression Device (SCD) Assessment and Plan - Assessment (1) ESRD on dialysis Code(s): N18.6 - End stage renal disease; Z99.2 - Dependence on renal dialysis Status: Chronic (2) Cellulitis of left upper arm Code(s): L03.114 - Cellulitis of left upper limb Status: Acute (3) Hyperkalemia Code(s): E87.5 - Hyperkalemia Status: Acute - Plan 77-year-old female with Questionable leak of ileostomy however at suture line, at rectosigmoid junction per CT abdomen Check Gastrografin enema General surgery consultation pending versus interventional radiology Increase ileostomy output Check C. difficile PCR Recent stool cultures negative on recent hospitalizations End-stage renal disease on hemodialysis Saturday and Saturday Consult nephrology Hyperkalemia Status post treatment in ED, monitor electrolyte Left arm cellulitis Start Rocephin IV daily Status post aVF placement January 01, [address] Ventura History of DVT, PE Coumadin until patient seen by general surgery
--- NOTE | 2018-02-05 17:10 | P.PNWCN ---
Wound Care Nurse Consult Description: Consult for Ostomy Management of ileostomy per Dr Medina Communicated with: KALYAN Camarillo Recommendation: Empty pouch of effluent when 1/3-1/2 full Change ostomy appliance Q3D and PRN for leaks. Change ostomy appliance for leaks, please do not reinforce wafer with tape. Additional information: Patient not seen on for ostomy assessment. Per executive receptionist patient is off unit and per RN patient is in I.R. Patient will be seen for follow up of ileostomy.
[2018-02-05] MEDS ORDERED: Sod Chloride 0.9% Inj 1,000 ML IV.CONT PRN (17:31)
[2018-02-05] MEDS ORDERED: Gelatin 12 MM/7 MM Topical Foam TOPICAL PRN (17:31)
[2018-02-05] MEDS ORDERED: Heparin 10,000 UNITS/10 ML Vial (for IV use) OTHER PRN (17:31)
[2018-02-05] MEDS ORDERED: Sod Chloride 0.9% Inj 1,000 ML OTHER PRN ×2 (17:31)
[2018-02-05] MEDS ORDERED: Albumin Human 25% Inj 100 ML IV.SIG PRN (17:31)
--- NOTE | 2018-02-05 17:41 | P.CONNP ---
History of Present Illness Service: Nephrology Consult date: 02/05/18 Requesting Physician: Abhinav Medina Reason for Consult: End-stage renal disease Primary Care Provider: UNKNOWN Chief Complaint: abdominal pain around ileostomy site along with leak due to increase output History of Present Illness: Patient is a 77-year-old white female with history of end-stage renal disease on hemodialysis, AV graft in the left arm with cellulitis which was treated recently, patient has ileostomy, she stated that she had increased output and had difficulty putting the bag and has missed her dialysis for the past 2 treatments and came into the emergency feeling weak and tired and has some confusion as well, was noted to have a potassium of 5.7 and high BUN and creatinine, she was transferred to the main hospital for further care. Patient has redness around her ileostomy site. Review of Systems Constitutional: Reports anorexia, Reports lack of energy, Reports weight loss Eyes: Denies blind spots, Denies blurry vision, Denies bulging eyes, Denies change in vision, Denies double vision, Denies discharge, Denies dry eyes, Denies floaters, Denies irritation, Denies itchy eyes, Denies loss of vision, Denies pain, Denies requires corrective lenses, Denies sensitivity to light, Denies other Cardiovascular: Reports shortness of breath with activity Respiratory: Reports shortness of breath Gastrointestinal: Reports abdominal pain, Reports cramping, Reports loose stools Musculoskeletal: Reports back pain, Reports body aches Skin/Breast: Reports rash Neurologic: Reports weakness Psychiatric: Reports change in appetite PMFSH - History History Provided By: Patient - Medical History Medical History: Medical History (Last Reviewed 02/05/18 @ 06:48 by Gary Barba) Absent parathyroid gland Anemia DVT (deep venous thrombosis) Diverticulitis of colon with perforation End stage renal disease on dialysis History of blood product transfusion Hx of hysterectomy Hypertension Pulmonary embolism Vascular dialysis catheter in place - Surgical History Surgical History: Surgical History (Last Reviewed 02/05/18 @ 06:48 by Gary Barba) Hx of colostomy Hx of ileostomy - Family History Family History: Family History (Last Reviewed 02/05/18 @ 06:48 by Gary Babra) Son Kidney disease Daughter Kidney disease - Tobacco History Second Hand Smoke Exposure: No Smoking Status: Never smoker - Alcohol History How Often Do You Have a Drink Containing Alcohol: Never - Substance Use History Substance History: No History of Abuse Medications and Allergies Active Medications: Active Medications Acetaminophen (Tylenol) 650 mg PO Q4H PRN PRN Reason: Temp > 100.4 Acetaminophen (Tylenol) 650 mg PO UNSCH PRN PRN Reason: SEE LABEL COMMENTS Al Hydroxide/Mg Hydroxide (Milk Of Narayan Lam) 30 ml PO Q12H PRN PRN Reason: Mild Constipation Clonidine HCl (Catapres) 0.1 mg PO UNSCH PRN PRN Reason: SEE LABEL COMMENTS Albumin Human (Flexbumin 25% Inj) 100 mls @ 60 mls/hr IV.SIG WITH DIALYSIS PRN PRN Reason: hypotension / volume replace Ondansetron HCl (Zofran Inj) 4 mg IV.PUSH Q6H PRN PRN Reason: NAUSEA OR VOMITING Temazepam (Restoril) 15 mg PO HS PRN PRN Reason: INSOMNIA Allergies Allergy/AdvReac Type Severity Reaction Status Date / Time Sulfa (Sulfonamide Allergy Swelling Verified 02/05/18 05:53 Antibiotics) Home Medications Medication Instructions Recorded Confirmed Type ondansetron HCl [Zofran] 8 mg PO TID PRN 01/10/18 02/05/18 History tramadol 50 mg PO Q6H 01/10/18 02/05/18 History metoprolol succinate 50 mg PO DAILY 02/05/18 02/05/18 History Exam Vital signs: Vital Signs 02/05/18 11:45 02/05/18 16:00 Temperature 97.2 F L Pulse Rate 76 74 Respiratory Rate 21 18 Blood Pressure 150/66 H 127/60 Pulse Oximetry 100 100 - Constitutional no acute distress - Routine HEENT Exam Head: Present: normocephalic Eye: Present: EOMI, PERRL - Routine Neck Exam Present: supple - Routine Respiratory Exam Present: decreased breath sounds - Routine Cardiovascular Exam Present: RRR - Routine Abdominal Exam Present: soft, tenderness, ostomy - Routine Extremities Exam Present: edema, full ROM - Routine Skin Exam Present: intact Assessment and Plan - Assessment (1) ESRD on dialysis Code(s): N18.6 - End stage renal disease; Z99.2 - Dependence on renal dialysis Status: Chronic (2) Hypertension Code(s): I10 - Essential (primary) hypertension Status: Chronic (3) Cellulitis of left upper arm Code(s): L03.114 - Cellulitis of left upper limb Status: Acute (4) Hyperkalemia Code(s): E87.5 - Hyperkalemia Status: Acute - Plan Patient is seen during hemodialysis, ultrafiltration on 4 L is tried she is tolerating it well Patient goes on Saturday, and Saturday before her patient dialysis Patient will be scheduled for tomorrow as well and will continue to monitor her progress Thank you for the consult (2) Hypertension Qualifiers: Hypertension type: essential hypertension Qualified Code(s): I10 - Essential (primary) hypertension
[2018-02-05] MEDS: Heparin 10,000 UNITS/10 ML Vial (for IV use) OTHER PRN (18:32)
--- NOTE | 2018-02-06 10:37 | P.PNVS ---
Subjective Subjective/Hospital Course: Pt well known to me, s/p L UE ax-ax loop with PTFE on 01/01. Has had significant arm edema and associated erythema, even necessitating admission. The arm is significantly improved and the wounds are healing. No hand pain. She does have an ipsilateral catheter. Admitted for ostomy issues and lack of HD, currently in HD. At present, she has no arm complaints and is happy with partial resolution in swelling. Objective Vital Signs / I&O: Vital Signs 02/05/18 11:45 02/05/18 16:00 02/05/18 20:14 Temperature 97.2 F L Pulse Rate 76 74 Respiratory Rate 21 18 Blood Pressure 150/66 H 127/60 Pulse Oximetry 100 100 99 02/05/18 21:00 02/06/18 00:00 02/06/18 08:00 Temperature 97.5 F L 97.8 F 98.0 F Pulse Rate 79 77 87 Respiratory Rate 16 16 16 Blood Pressure 129/60 127/62 123/60 Pulse Oximetry 100 100 99 Intake & Output 02/05/18 02/06/18 02/06/18 18:59 06:59 18:59 Intake Total 480 / 480 Output Total 3000 / 3000 675 / 675 Balance -3000 / -3000 -195 / -195 Weight 52 kg Intake: Oral 480 / 480 Output: Urine 200 / 200 Hemodialysis Amount 3000 / 3000 Stool Amount (Stoma) 475 / 475 Left Lower Abdomen 475 / 475 Other: Weight On Admission 51.5 kg Physical Exam: L UE edematous. + thrill. Hand ok. Graft palpable Axillary incision and brachial incision healed. Laboratory Results - last 24 hr 02/06/18 09:37 POC Glucose 80 Assessment and Plan - Plan s/p L UE AVG with arm edema, resolving. Not cellulitic. 1. Ok to use AVG for HD. Discussed with dialysis team and marked arm. 2. Needs catheter removed once successful cannulation. This will help arm swelling greatly. 3. If arm swelling persists after catheter removed, then can perform fistulogram and potential intervention. This can be done as outpatient. Robles Ventura MD FACS [employer] mill operator [facility] - Heart and Vascular Surgery at [place] [phone]
--- NOTE | 2018-02-06 10:39 | P.PN ---
Subjective Interval history: This is a pleasant 77 y/o Female with Hypertension, Perforated Diverticulitis, status post Colostomy ESRD T//, and status post AVG placement 01/01/[address] Ventura, went to [place] ED today for evaluation of history of abdominal pain around ileostomy site associated with leak due to increased output. patient states, as a result of this, she missed 2 sessions of dialysis including last Saturday and Saturday, was short of breath, not been able to follow doctor Lorenzo, was hyperkalemia in ER CT abdomen ordered review questionable leak around suture of ileostomy, for which general surgery has been consulted. 02/06: Patient status post Hemodialysis performed yesterday, Seen by her Primary Vascular liquified natural gas specialist, status post Left Upper arm Arteriovenous Graft Placement, with arm edema, non cellulitic Recommended fistulogram if edema persist. seen in her bedroom in the presence of certified health education specialist, will have abscess drainage by Interventional radiology tomorrow her INR 3, given vitamin K by specialist to decrease the INR for Procedure. no nausea, vomit or diarrhea. Physical Exam Vital signs: Vital Signs 02/05/18 11:45 02/05/18 16:00 02/05/18 20:14 Temperature 97.2 F L Pulse Rate 76 74 Respiratory Rate 21 18 Blood Pressure 150/66 H 127/60 Pulse Oximetry 100 100 99 02/05/18 21:00 02/06/18 00:00 02/06/18 08:00 Temperature 97.5 F L 97.8 F 98.0 F Pulse Rate 79 77 87 Respiratory Rate 16 16 16 Blood Pressure 129/60 127/62 123/60 Pulse Oximetry 100 100 99 Intake & Output 02/05/18 02/06/18 02/06/18 18:59 06:59 18:59 Intake Total 480 / 480 Output Total 3000 / 3000 675 / 675 Balance -3000 / -3000 -195 / -195 Weight 52 kg Intake: Oral 480 / 480 Output: Urine 200 / 200 Hemodialysis Amount 3000 / 3000 Stool Amount (Stoma) 475 / 475 Left Lower Abdomen 475 / 475 Other: Weight On Admission 51.5 kg Narrative: GENERAL: NAD SKIN: Warm and dry. redness and erythema of left upper extremity HEAD: Atraumatic. Normocephalic. EYES: Pupils equal and round. No scleral icterus. No injection or drainage. ENT: No nasal bleeding or discharge. Mucous membranes pink and moist. NECK: Trachea midline. No JVD. CARDIOVASCULAR: Regular rate and rhythm. RESPIRATORY: No accessory muscle use. Clear to auscultation. Breath sounds equal bilaterally. GASTROINTESTINAL: Abdomen soft, non-tender, nondistended. Ileostomy bag in place with liquid stool, skin erythematous and dry. MUSCULOSKELETAL: Extremities without clubbing, cyanosis, or edema. No obvious deformities. Left upper extremity increasing size NEUROLOGICAL: Awake and alert. No obvious cranial nerve deficits. PSYCHIATRIC: Appropriate mood and affect; insight and judgment normal. Results - Labs CBC & Chem 7: 02/06/18 17:00 02/06/18 17:00 Laboratory Results - last 24 hr 02/06/18 09:37 POC Glucose 80 Assessment and Plan - Assessment (1) ESRD on dialysis Code(s): N18.6 - End stage renal disease; Z99.2 - Dependence on renal dialysis Status: Chronic (2) Cellulitis of left upper arm Code(s): L03.114 - Cellulitis of left upper limb Status: Acute (3) Hyperkalemia Code(s): E87.5 - Hyperkalemia Status: Acute - Plan 1. ESRD on Hemodialysis, with medical non compliance, to continue Hemodialysis Nephrology specialist following 2. Questionable leak from ileostomy asked for Gastrografin enema. 3. Cellulitis of the left arm on Rocephin daily. seen by Vascular surgery, do not think is Cellulitis and asked to use the AV fistula. 4. Increased ileostomy output, asked for C Diff PCR, 5. Hyperkalemia given management in ER. 6. Status post AV placement January 01 2018. 7. History of DVT/PE on Coumadin. 8. Presacral abscess complex medical surgical history, concern for stump suture line leak, Interventional radiology for drainage. DVT prophylaxis SCDs INR 3 on hold Coumadin for procedure tomorrow. Code Status: Full Code Discussed Condition With: Patient and nurse. Discharge Planning: Once cleared by specialists.
--- NOTE | 2018-02-06 11:05 | P.PNNP ---
Subjective Interval history: Patient has been, ileostomy still bothers Physical Exam Vital signs: Vital Signs 02/05/18 11:45 02/05/18 16:00 02/05/18 20:14 Temperature 97.2 F L Pulse Rate 76 74 Respiratory Rate 21 18 Blood Pressure 150/66 H 127/60 Pulse Oximetry 100 100 99 02/05/18 21:00 02/06/18 00:00 02/06/18 08:00 Temperature 97.5 F L 97.8 F 98.0 F Pulse Rate 79 77 87 Respiratory Rate 16 16 16 Blood Pressure 129/60 127/62 123/60 Pulse Oximetry 100 100 99 Intake & Output 02/05/18 02/06/18 02/06/18 18:59 06:59 18:59 Intake Total 480 / 480 Output Total 3000 / 3000 675 / 675 Balance -3000 / -3000 -195 / -195 Weight 52 kg Intake: Oral 480 / 480 Output: Urine 200 / 200 Hemodialysis Amount 3000 / 3000 Stool Amount (Stoma) 475 / 475 Left Lower Abdomen 475 / 475 Other: Weight On Admission 51.5 kg - Constitutional no acute distress - Routine HEENT Exam Head: Present: normocephalic - Routine Neck Exam Present: supple - Routine Respiratory Exam Present: CTA bilaterally - Routine Cardiovascular Exam Present: RRR - Routine Abdominal Exam Present: soft, normoactive bowel sounds - Routine Extremities Exam Present: full ROM Assessment and Plan - Assessment (1) ESRD on dialysis Code(s): N18.6 - End stage renal disease; Z99.2 - Dependence on renal dialysis Status: Chronic (2) Hypertension Code(s): I10 - Essential (primary) hypertension Status: Chronic Qualifiers: Hypertension type: essential hypertension Qualified Code(s): I10 - Essential (primary) hypertension (3) Cellulitis of left upper arm Code(s): L03.114 - Cellulitis of left upper limb Status: Acute (4) Hyperkalemia Code(s): E87.5 - Hyperkalemia Status: Acute - Plan Patient is seen during hemodialysis, ultrafiltration 2 L Continue supportive care AV graft located left arm, go to her vascular surgeon by next treatment
--- NOTE | 2018-02-06 13:23 | MB ---
cc: Joseph Anderson MD DATE: 02/05/2018 CHIEF COMPLAINT: Abdominal pain, increased ileostomy output, concern for pelvic abscess versus fistula. HISTORY OF PRESENT ILLNESS: The patient is a 77-year-old female with a complex medical and surgical history. The patient has a history of perforated diverticulitis approximately 15 years ago, status post resection. The patient warranted re-resection with diverting ileostomy approximately 10 years ago. She has been followed in [place] and has had multiple medical admissions as well due to end-stage renal disease and various other issues. She was recently seen, approximately a month ago, with further issue for which she was treated, had some improvement and re-presented with a several day history of increased ileostomy output, abdominal pain. She states the pain is 7/10, currently 2/10. The pain is located in the pelvis, worse with movement, better with lying still. She denied any significant fever or chills. She is complaining also of some skin pain at the ostomy site as well with skin changes. She came to the emergency department for further evaluation including CT scan, which showed recurrent pelvic fluid collection containing air bubbles concerning for leak at staple line. She has been afebrile and her WBC is 7.9, otherwise stable. PAST MEDICAL HISTORY: Parathyroidectomy, anemia, DVT, diverticulitis with perforation, end-stage renal disease, hypotension, pulmonary embolism. PAST SURGICAL HISTORY: Left upper extremity AV fistula, exploratory laparotomy, colon resection, end ileostomy, hysterectomy, parathyroidectomy. SOCIAL HISTORY: Denies smoking, ETOH, or IVDA. ALLERGIES: SULFA. MEDICATIONS: See EMR, Coumadin. FAMILY HISTORY: Denies diabetes or hypertension. REVIEW OF SYSTEMS: GENERAL: Complains of fatigue. HEENT: Denies eye pain, ear pain. NECK: Denies swelling or pain. LUNGS: Denies cough or wheeze. HEART: Denies palpitations or chest pain. ABDOMEN: Complains of abdominal pain, denies vomiting. GENITOURINARY: Denies dysuria or hematuria. ENDOCRINE: Denies polyuria or polydipsia. INTEGUMENT: Denies any masses. Complains of skin lesion at ileostomy site. EXTREMITIES: Complains of left upper extremity pain. NEUROLOGIC: No numbness or tingling. PHYSICAL EXAMINATION: GENERAL: The patient is in no acute distress. VITAL SIGNS: Temperature 97.2, pulse 74, respirations 18, blood pressure 127/60, saturation 100%. HEENT: Pupils equal, round, reactive. NECK: Supple. Trachea midline. LUNGS: Bilateral expansion, clear. HEART: S1, S2, regular. ABDOMEN: Mild tenderness to palpation, nondistended, ileostomy pink, ileostomy site with excoriation and skin changes around site, healed surgical scars. EXTREMITIES: Warm and well perfused. The left upper extremity with tenderness to palpation and swelling at incision in AV graft site. NEUROLOGIC: AAO x 4, moving all extremities. PSYCHIATRIC: Appropriate mood, appropriate insight. LABORATORY AND DIAGNOSTIC DATA: WBC 7.9. Otherwise, labs were reviewed. CT scan reviewed by myself showing fluid collection, presacral, unchanged in size; however, presence of air, concern for staple line leak, right lower quadrant ileostomy, left renal stone, IVC filter. ASSESSMENT: The patient is a 77-year-old female who presents with multiple medical issues complex medical/surgical history, concern for presacral fluid abscess containing air, possible fistula leak at distal anastomosis. Acute verse chronic. Mild abdominal pain. No fever. wbc normal. Patient with history of Coumadin, PE, end-stage renal disease on hemodialysis. PLAN: After a full clinical workup, the patient has above above-named issues. At this point agree with a Gastrografin enema to confirm possible leak in pouch. This is pending. Further, we will discuss in consultation for interventional radiology for possible IR drain placement. The patient needs IV antibiotics, pain control. Defer to medicine for multiple medical issues. The patient with an INR of 4. We will need reversal with FFP, vitamin K. The patient is elevated risk for surgical intervention, therefore, again will attempt conservative management and nonoperative management. Consider colorectal evaluation. We will continue to follow closely. Thank you for the consultation. MD URBAN Maurice/farooq , 11:58 AM , 12:11 PM ABRIL
--- NOTE | 2018-02-06 17:30 | P.PNWCN ---
Wound Care Nurse Consult Description: Consult for Ostomy Management of ileostomy per Dr Medina Communicated with: RN Rabia hernandez and Doctor Vance Recommendation: Empty pouch of effluent when 1/3-1/2 full Change ostomy appliance Q3D and PRN for leaks. Change ostomy appliance for leaks, please do not reinforce wafer with tape. When changing ostomy appliance, please cleanse peristomal skin with water only and washcloth only and gently pat dry. Encrust peristomal skin breakdown as follows: Apply stoma powder and wipe off excess, then spray with Cavilon skin barrier film spray repeat process one time. Apply brennan seal molding a ring around stoma. Apply 2 1/4 wafer and pouch appliance left in room with accordion flange that fits stoma sizes 1/2 inch to 7 /8inch. Please call wound care nurse if not available. If wound care nurse can' t be reached, please use brennan seal and 1 3/4 inch appliance available on floor or in SPD Wound/Pressure Injury - Wound Left Abdomen Wound Dressing Change Date: 02/06/18 Bowel Diversion Stoma - Bowel Stoma Left Lower Abdomen Stoma Edema: Yes Stoma Appearance: Beefy Red Collection Device: Two-piece Drainage Description: Liquid, Green Wafer Size: 1 3/4 inch cut to fit durhesive two piece Stoma Care: Pouch and Wafer Changed, Skin Care Aidee-Stomal Skin Appearance: Irritated and Inflammed (denuded peristomal skin) Aidee-Stomal Surrounding Tissue Sensation Description: Burning, Painful - Additional Information Additional Information: Patient seen for ostomy management for ileostomy. Patient has had ileostomy for 10 years and per patient has not received much teaching. Patient states, "I had home health care and my supply company stopped sending me supplies and told me that home health care was supposed to be giving me supplies. I was out of supplies and I had to use paper towels, baby diapers." Patient is complaining of burning pain. small leak noted at 6 o'clock. Emptied ~25cc of green liquid effluent from pouch. Removed two piece ileostomy appliance in place.Peristomal skin presents as denuded and erythematous. Stoma is red, oval and protruding. Stoma lumen is located on distal side of stoma. Peristomal skin was cleansed with water and wash cloths and was gently patted dry. Peristomal skin was encrusted with stoma powder, followed by Cavilon skin barrier film spray, the process was repeated one time. Brennan seal was molded into a ring and applied around stoma. Stoma measures 3/4 inches wide and 1/2 inch tall and is oval in shape. Applied 1 3/4 inch Durahesive cut to fit wafer with adaptor attached and snapped pouch in place. Recommendations are noted above.
[2018-02-06 17:58] LABS: Hematocrit 37.3 % (35.0-46.0); Hemoglobin 12.6 gm/dL (11.6-15.3); Mean Corpuscular HGB Conc 33.7 % (32.0-36.0); Mean Corpuscular Volume 100.9 fL (80.0-100.0); Mean Platelet Volume 7.7 fL (7.0-11.0); Platelet Count 128 th/mm3 (150-450); Red Cell Distribution Width 17.6 % (11.6-17.2)
[2018-02-06 18:02] LABS: Prothrombin Time 29.9 sec (9.8-11.6)
[2018-02-06 18:16] LABS: Albumin 3.6 g/dL (3.4-5.0); Anion Gap 9 meq/L (5-15); Aspartate Aminotransferase 27 U/L (15-37); Blood Urea Nitrogen 11 mg/dL (7-18); Calcium 10.2 mg/dL (8.5-10.1); Chloride 97 meq/L (98-107); Glomerular Filtration Rate 15 mL/min (>89); Glucose,Random 124 mg/dL (74-106); Potassium 3.8 meq/L (3.5-5.1); Sodium 135 meq/L (136-145)
[2018-02-06 18:17] LABS: Alanine Aminotransferase 20 U/L (10-53)
[2018-02-06 18:19] LABS: Alkaline Phosphatase 145 U/L (45-117); Total Protein 8.5 g/dL (6.4-8.2)
--- NOTE | 2018-02-06 20:59 | P.PNGS ---
Subjective Patient reports: no new complaints (no acute issue ) Physical Exam Vital signs: Vital Signs 02/05/18 21:00 02/06/18 00:00 02/06/18 08:00 Temperature 97.5 F L 97.8 F 98.0 F Pulse Rate 79 77 87 Respiratory Rate 16 16 16 Blood Pressure 129/60 127/62 123/60 Pulse Oximetry 100 100 99 02/06/18 15:46 02/06/18 16:00 Temperature 97.9 F Pulse Rate 102 H Respiratory Rate 20 Blood Pressure 125/58 L Pulse Oximetry 98 96 Intake & Output 02/06/18 02/06/18 02/07/18 06:59 18:59 06:59 Intake Total 480 / 480 600 / 600 Output Total 675 / 675 1500 / 1500 Balance -195 / -195 -900 / -900 Weight 52 kg Intake: Oral 480 / 480 600 / 600 Output: Urine 200 / 200 Hemodialysis Amount 1500 / 1500 Stool Amount (Stoma) 475 / 475 Left Lower Abdomen 475 / 475 Other: Weight On Admission 51.5 kg - Constitutional no acute distress - Routine Respiratory Exam Present: CTA bilaterally - Routine Abdominal Exam Present: soft (mild ttp, ostomy viable pink) Assessment and Plan - Plan presacral abscess complex medical surgical hx concern for colonic suture line leak, acute v chronic, possible abscess PLAN npo IR for possible drain- await eval correct INR abx abdominal exams gastrografin enema pending colorectal consult if positive for leak hd per nephro
[2018-02-06] MEDS ORDERED: Phytonadione 5 MG/SWFI 5 ML Oral Syringe PO ONE (21:00)
[2018-02-07] MEDS: Morphine Inj 4 MG/ML Vial IV.PUSH PRN (04:18)
[2018-02-07] MEDS ORDERED: Diatrizoate Meglum/Diatrizoate Sod Liq 120 ML Bottle (for RAD diag) RECTAL ONE (10:47)
--- NOTE | 2018-02-07 11:12 | FL ---
EXAM DATE: 02/07/2018 10:55 AM EDT AGE/SEX: 77 years / Female INDICATIONS: Abdominal pain right and left sides, evaluate obstruction or leak at rectosigmoid junct ion CLINICAL DATA: This is the patient's subsequent encounter. Patient reports that signs and symptoms h ave been present for 1 week and indicates a pain score of 7/10. MEDICAL/SURGICAL HISTORY: Diverticulitis. renal failure, dialysis . colostomy, closed colostom y, ileostomy COMPARISON: [facility], CT ABDOMEN & PELVIS W/O CONTRAST, 02/05/2018. . FLUORO TIME: 0.6 IMAGE COUNT: 10 FINDINGS: Preliminary film demonstrates right lower quadrant ostomy. Inferior vena cava filter present. Under fluoroscopic guidance a Gastrografin enema was performed through a Wise catheter. There is a f istula that extends from the upper rectum posteriorly and inferiorly into the presacral soft tissues. The site of the fistula is likely a suture line in the upper rectum seen on recent CT examination. T he fistula extends over at least 9 cm in length. Contrast does extend slightly above the fistula into the distal sigmoid. CONCLUSION: There is a fistula between the upper rectum and the presacral soft tissues as above. The fistula like ly begins suture line seen on recent CT and then extends inferiorly over a length of at least 9 cm. Electronically signed by: Juan Vargas MD 02/07/2018 11:11 AM EDT
--- NOTE | 2018-02-07 11:15 | P.PNWCN ---
Wound Care Nurse Consult Description: Consult for Ostomy Management of ileostomy per Dr Medina Communicated with: KALYAN Yepez [place] Recommendation: Empty pouch of effluent when 1/3-1/2 full Change ostomy appliance Q3D and PRN for leaks. Change ostomy appliance for leaks, please do not reinforce wafer with tape. When changing ostomy appliance, please cleanse peristomal skin with water only and washcloth only and gently pat dry. Encrust peristomal skin breakdown as follows: Apply stoma powder and wipe off excess, then spray with Cavilon skin barrier film spray repeat process one time. Apply vamshi seal molding a ring around stoma. Apply 2 1/4 wafer and pouch appliance left in room with accordion flange that fits stoma sizes 1/2 inch to 7 /8inch. Please call wound care nurse if not available. If wound care nurse can' t be reached, please use vamshi seal and 1 3/4 inch appliance available on floor or in SPD Bowel Diversion Stoma - Bowel Stoma Left Lower Abdomen Stoma Edema: Yes Stoma Appearance: Beefy Red Collection Device: Two-piece Drainage Description: Liquid, Brown, Green Wafer Size: 1 3/4 inch cut to fit durhesive two piece - Additional Information Additional Information: Patient seen for follow up of ostomy management for ileostomy. Ileostomy appliance 1 3/4 Durahesive cut to fit two piece is in place and dry and intact Patient reports burning and irritation has improved since encrusting peristomal skin and application of new ileostomy appliance. Supplies are in room for ileostomy appliance change if needed this weekend.
--- NOTE | 2018-02-07 14:03 | P.PNGS ---
Subjective Patient reports: still having pain (left sided abd pain, no vomiting) Physical Exam Vital signs: Vital Signs 02/06/18 15:46 02/06/18 16:00 02/06/18 20:00 Temperature 97.9 F 97.9 F Pulse Rate 102 H 86 Respiratory Rate 20 17 Blood Pressure 125/58 L 147/64 H Pulse Oximetry 98 96 100 02/07/18 00:00 02/07/18 08:00 02/07/18 11:58 Temperature 98.2 F 97.7 F 97.3 F L Pulse Rate 84 76 91 H Respiratory Rate 17 17 17 Blood Pressure 115/56 L 127/63 138/61 Pulse Oximetry 98 97 100 Intake & Output 02/06/18 02/07/18 02/07/18 18:59 06:59 18:59 Intake Total 600 / 600 240 / 240 Output Total 1500 / 1500 400 / 400 Balance -900 / -900 -160 / -160 Weight 50.5 kg Intake: Oral 600 / 600 240 / 240 Output: Urine 100 / 100 Hemodialysis Amount 1500 / 1500 Stool Amount (Stoma) 300 / 300 Left Lower Abdomen 300 / 300 - Routine Abdominal Exam Present: soft, tenderness (LLQ, ileostomy pink with liquid) - Routine Extremities Exam Present: edema (LUE) Assessment and Plan - Plan presacral abscess complex medical surgical hx, diverting ileostomy with increased output concern for stump suture line leak, concern for Abscess- no fevers, abdomen mildly tender PLAN npo ostomy nurse for macerated skin and ostomy care vasc Evalfor LUE IR for possible drain- Pending INR correct INR abx abdominal exams gastrografin enema pending
--- NOTE | 2018-02-07 14:06 | P.PN ---
Subjective Interval history: This is a pleasant 77 y/o Female with Hypertension, Perforated Diverticulitis, status post Colostomy ESRD T//, and status post AVG placement 01/01/[address] Ventura, went to [place] ED today for evaluation of history of abdominal pain around ileostomy site associated with leak due to increased output. patient states, as a result of this, she missed 2 sessions of dialysis including last Saturday and Saturday, was short of breath, not been able to follow doctor Lorenzo, was hyperkalemia in ER CT abdomen ordered review questionable leak around suture of ileostomy, for which general surgery has been consulted. 02/06: Patient status post Hemodialysis performed yesterday, Seen by her Primary Vascular instructional technology specialist, status post Left Upper arm Arteriovenous Graft Placement, with arm edema, non cellulitic Recommended fistulogram if edema persist. seen in her bedroom in the presence of marine cargo specialist, will have abscess drainage by Interventional radiology tomorrow her INR 3, given vitamin K by specialist to decrease the INR for Procedure. 02/07: seen in her bedroom, discussed with nurse Miss Deleon patient stable, no nausea, vomit or diarrhea continue wound care for her Ostomy area, Pre sacral ulcer with abscess she will go for Interventional Radiology drainage once her INR is been able to be taken and below 1.5 Physical Exam Vital signs: Vital Signs 02/06/18 15:46 02/06/18 16:00 02/06/18 20:00 Temperature 97.9 F 97.9 F Pulse Rate 102 H 86 Respiratory Rate 20 17 Blood Pressure 125/58 L 147/64 H Pulse Oximetry 98 96 100 02/07/18 00:00 02/07/18 08:00 02/07/18 11:58 Temperature 98.2 F 97.7 F 97.3 F L Pulse Rate 84 76 91 H Respiratory Rate 17 17 17 Blood Pressure 115/56 L 127/63 138/61 Pulse Oximetry 98 97 100 Intake & Output 02/06/18 02/07/18 02/07/18 18:59 06:59 18:59 Intake Total 600 / 600 240 / 240 Output Total 1500 / 1500 400 / 400 Balance -900 / -900 -160 / -160 Weight 50.5 kg Intake: Oral 600 / 600 240 / 240 Output: Urine 100 / 100 Hemodialysis Amount 1500 / 1500 Stool Amount (Stoma) 300 / 300 Left Lower Abdomen 300 / 300 Narrative: GENERAL: NAD SKIN: Warm and dry. redness and erythema of left upper extremity HEAD: Atraumatic. Normocephalic. EYES: Pupils equal and round. No scleral icterus. No injection or drainage. ENT: No nasal bleeding or discharge. Mucous membranes pink and moist. NECK: Trachea midline. No JVD. CARDIOVASCULAR: Regular rate and rhythm. RESPIRATORY: No accessory muscle use. Clear to auscultation. Breath sounds equal bilaterally. GASTROINTESTINAL: Abdomen soft, non-tender, nondistended. Ileostomy bag in place with liquid stool, skin erythematous and dry. MUSCULOSKELETAL: Extremities without clubbing, cyanosis, or edema. No obvious deformities. Left upper extremity increasing size NEUROLOGICAL: Awake and alert. No obvious cranial nerve deficits. PSYCHIATRIC: Appropriate mood and affect; insight and judgment normal. Results - Labs CBC & Chem 7: 02/06/18 17:00 02/06/18 17:00 Laboratory Results - last 24 hr 02/06/18 02/06/18 02/06/18 17:00 17:00 17:00 WBC 6.0 RBC 3.70 L Hgb 12.6 Hct 37.3 MCV 100.9 H D MCH 34.0 MCHC 33.7 RDW 17.6 H Plt Count 128 L MPV 7.7 PT 29.9 H D INR 3.0 Sodium 135 L Potassium 3.8 D Chloride 97 L D Carbon Dioxide 29.0 D Anion Gap 9 BUN 11 Creatinine 3.04 H Estimated GFR 15 L Random Glucose 124 H Calcium 10.2 H D Total Bilirubin 0.4 AST 27 ALT 20 Alkaline Phosphatase 145 H Total Protein 8.5 H Albumin 3.6 D - Imaging Impressions Enema w/Water Soluble 02/07/18 00:00 CONCLUSION: There is a fistula between the upper rectum and the presacral soft tissues as above. The fistula likely begins suture line seen on recent CT and then extends inferiorly over a length of at least 9 cm. Assessment and Plan - Assessment (1) ESRD on dialysis Code(s): N18.6 - End stage renal disease; Z99.2 - Dependence on renal dialysis Status: Chronic (2) Cellulitis of left upper arm Code(s): L03.114 - Cellulitis of left upper limb Status: Acute (3) Hyperkalemia Code(s): E87.5 - Hyperkalemia Status: Acute - Plan 1. ESRD on Hemodialysis, with medical non compliance, had Hemodialysis yesterday. 2. Questionable leak from ileostomy, Gastrografin Enema showed fistula between the upper rectum and the presacral soft tissues, likely begins suture line see on recent CT and then extends inferiorly over a length of at least 9 cm. 3. Cellulitis of the left arm on Rocephin daily. seen by Vascular surgery, do not think is Cellulitis and asked to use the AV fistula. 4. Increased ileostomy output, asked for C Diff PCR, 5. Hyperkalemia given management in ER. 6. Status post AV placement January 01 2018. 7. History of DVT/PE on Coumadin. 8. Presacral abscess complex medical surgical history, concern for stump suture line leak, Interventional radiology for drainage. DVT prophylaxis SCDs INR 3 on hold Coumadin for procedure later today. Code Status: Full Code Discussed Condition With: Patient and nurse Miss Rai Discharge Planning: Once cleared by specialists.
[2018-02-07 14:36] LABS: Activated Partial Thrombo Time 19.7 sec (24.3-30.1); INR 1.3 Ratio; Prothrombin Time 12.7 sec (9.8-11.6)
[2018-02-07] MEDS ORDERED: Lidocaine 1%/Epinephrine 1:100,000 Inj 50 ML Vial ONE (16:13)
[2018-02-07] MEDS ORDERED: fentaNYL Citrate Inj 250 MCG/5 ML Ampul ONE (16:20)
--- NOTE | 2018-02-07 16:52 | P.PNNP ---
Subjective Interval history: 77 year old felae with ESRD.ileostomy, para sacral wound Physical Exam Vital signs: Vital Signs 02/06/18 20:00 02/07/18 00:00 02/07/18 08:00 Temperature 97.9 F 98.2 F 97.7 F Pulse Rate 86 84 76 Respiratory Rate 17 17 17 Blood Pressure 147/64 H 115/56 L 127/63 Pulse Oximetry 100 98 97 02/07/18 11:58 02/07/18 15:58 Temperature 97.3 F L 97.9 F Pulse Rate 91 H 89 Respiratory Rate 17 Blood Pressure 138/61 123/53 L Pulse Oximetry 100 98 Intake & Output 02/06/18 02/07/18 02/07/18 18:59 06:59 18:59 Intake Total 600 / 600 240 / 240 Output Total 1500 / 1500 400 / 400 Balance -900 / -900 -160 / -160 Weight 50.5 kg Intake: Oral 600 / 600 240 / 240 Output: Urine 100 / 100 Hemodialysis Amount 1500 / 1500 Stool Amount (Stoma) 300 / 300 Left Lower Abdomen 300 / 300 - Constitutional no acute distress - Routine HEENT Exam Head: Present: normocephalic Eye: Present: EOMI - Routine Respiratory Exam Present: CTA bilaterally - Routine Cardiovascular Exam Present: RRR - Routine Abdominal Exam Present: tenderness - Routine Extremities Exam Present: pulses intact Assessment and Plan - Assessment (1) ESRD on dialysis Code(s): N18.6 - End stage renal disease; Z99.2 - Dependence on renal dialysis Status: Chronic (2) Hypertension Code(s): I10 - Essential (primary) hypertension Status: Chronic Qualifiers: Hypertension type: essential hypertension Qualified Code(s): I10 - Essential (primary) hypertension (3) Cellulitis of left upper arm Code(s): L03.114 - Cellulitis of left upper limb Status: Acute (4) Hyperkalemia Code(s): E87.5 - Hyperkalemia Status: Acute - Plan Patient is Saturday and Saturday Continue supportive care AV graft located left arm, go to her vascular surgeon by next treatment Surgery following Ileostomy, she said she had BM per rectum and feels better
--- NOTE | 2018-02-07 17:16 | CT ---
EXAM DATE: 02/07/2018 5:01 PM EDT AGE/SEX: 77 years / Female INDICATIONS: Evaluate for possible abscess drainage. CLINICAL DATA: This is the patient's initial encounter. Patient reports that signs and symptoms have been present for 1 day and indicates a pain score of 0/10. MEDICAL/SURGICAL HISTORY: None. None. RADIATION DOSE: 5.60 CTDI (mGy) COMPARISON: [facility], CT ABDOMEN & PELVIS W/O CONTRAST, 02/05/2018. . TECHNIQUE: Multiple contiguous axial images were obtained through the pelvis without contrast. Imag es were obtained using multiple row detector helical technique. . Using automated exposure control an d adjustment of the mA and/or kV according to patient size, radiation dose was kept as low as reasona janny achievable to obtain optimal diagnostic quality images. DICOM format image data is available tacos ctronically for review and comparison. FINDINGS: Limited scanning of the pelvis was performed to plan for possible aspiration or drainage of presacral abscess. The imaging clearly reveals air and contrast present in the presacral collection with a com munication to the adjacent rectum consistent with anastomotic leak and developing fistula. As such, t ransrectal drainage or surgical intervention will be required. There is no role for percutaneous drai nage or aspiration CONCLUSION: Not appropriate for percutaneous drainage as above Electronically signed by: Amos Gil MD 02/07/2018 5:14 PM EDT
[2018-02-08] MEDS: Morphine Inj 4 MG/ML Vial IV.PUSH PRN ×5 (03:25→23:36)
--- NOTE | 2018-02-08 09:41 | P.PNNP ---
Subjective Interval history: No acute complaints, some ongoing abdominal pains. Seen on HD today. Physical Exam Vital signs: Vital Signs 02/07/18 11:58 02/07/18 15:58 02/07/18 20:00 Temperature 97.3 F L 97.9 F 97.5 F L Pulse Rate 91 H 89 93 H Respiratory Rate 17 17 18 Blood Pressure 138/61 123/53 L 136/61 Pulse Oximetry 100 98 98 02/08/18 00:00 02/08/18 08:00 Temperature 97.8 F 97.8 F Pulse Rate 88 83 Respiratory Rate 16 16 Blood Pressure 148/64 H 141/64 H Pulse Oximetry 99 97 Intake & Output 02/07/18 02/08/18 02/08/18 18:59 06:59 18:59 Intake Total 720 / 720 720 / 720 Output Total 100 / 100 750 / 750 Balance 620 / 620 -30 / -30 Weight 49.4 kg Intake: Oral 720 / 720 720 / 720 Output: Urine 150 / 150 Stool Amount (Stoma) 100 / 100 600 / 600 Left Lower Abdomen 100 / 100 200 / 200 Right Lower Abdomen 400 / 400 Other: # Voids 1 1 # Bowel Movements 2 - Constitutional no acute distress - Routine HEENT Exam Head: Present: normocephalic Eye: Present: EOMI - Routine Neck Exam Present: supple - Routine Respiratory Exam Present: decreased breath sounds - Routine Cardiovascular Exam Present: RRR - Routine Abdominal Exam Present: soft - Routine Skin Exam Present: intact - Detailed Neurological Exam: Coma Scale Eye Opening: Spontaneous - Routine Psychiatric Exam Present: normal affect Assessment and Plan - Assessment (1) ESRD on dialysis Code(s): N18.6 - End stage renal disease; Z99.2 - Dependence on renal dialysis Status: Chronic (2) Hypertension Code(s): I10 - Essential (primary) hypertension Status: Chronic Qualifiers: Hypertension type: essential hypertension Qualified Code(s): I10 - Essential (primary) hypertension (3) Cellulitis of left upper arm Code(s): L03.114 - Cellulitis of left upper limb Status: Acute (4) Hyperkalemia Code(s): E87.5 - Hyperkalemia Status: Acute - Plan Patient is Saturday and Saturday Continue supportive care AV graft located left arm, some ongoing edema - however good thrill Currently using catheter. Seen on HD today and tolerating HD well. Plan next HD saturday. Surgery following Ileostomy.
--- NOTE | 2018-02-08 10:25 | P.PNGS ---
Subjective Patient reports: other (pt in dialysis. no problems per RN) Physical Exam Vital signs: Vital Signs 02/07/18 11:58 02/07/18 15:58 02/07/18 20:00 Temperature 97.3 F L 97.9 F 97.5 F L Pulse Rate 91 H 89 93 H Respiratory Rate 17 17 18 Blood Pressure 138/61 123/53 L 136/61 Pulse Oximetry 100 98 98 02/08/18 00:00 02/08/18 08:00 Temperature 97.8 F 97.8 F Pulse Rate 88 83 Respiratory Rate 16 16 Blood Pressure 148/64 H 141/64 H Pulse Oximetry 99 97 Intake & Output 02/07/18 02/08/18 02/08/18 18:59 06:59 18:59 Intake Total 720 / 720 720 / 720 Output Total 100 / 100 750 / 750 Balance 620 / 620 -30 / -30 Weight 49.4 kg Intake: Oral 720 / 720 720 / 720 Output: Urine 150 / 150 Stool Amount (Stoma) 100 / 100 600 / 600 Left Lower Abdomen 100 / 100 200 / 200 Right Lower Abdomen 400 / 400 Other: # Voids 1 1 # Bowel Movements 2 Assessment and Plan - Assessment (1) 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
[2018-02-08] MEDS: Heparin 10,000 UNITS/10 ML Vial (for IV use) OTHER PRN (10:37)
--- NOTE | 2018-02-08 12:30 | P.PN ---
Subjective Interval history: This is a pleasant 77 y/o Female with Hypertension, Perforated Diverticulitis, status post Colostomy ESRD T//, and status post AVG placement 01/01/[address] Ventuar, went to [place] ED today for evaluation of history of abdominal pain around ileostomy site associated with leak due to increased output. patient states, as a result of this, she missed 2 sessions of dialysis including last Saturday and Saturday, was short of breath, not been able to follow doctor Lorenzo, was hyperkalemia in ER CT abdomen ordered review questionable leak around suture of ileostomy, for which general surgery has been consulted. 02/06: Patient status post Hemodialysis performed yesterday, Seen by her Primary Vascular consumer education specialist, status post Left Upper arm Arteriovenous Graft Placement, with arm edema, non cellulitic Recommended fistulogram if edema persist. seen in her bedroom in the presence of business account specialist, will have abscess drainage by Interventional radiology tomorrow her INR 3, given vitamin K by specialist to decrease the INR for Procedure. 02/07: seen in her bedroom, discussed with nurse Miss Deleon patient stable, no nausea, vomit or diarrhea continue wound care for her Ostomy area, Pre sacral ulcer with abscess she will go for Interventional Radiology drainage once her INR is been able to be taken and below 1.5 02/08: Stable patient discussed with nurse Miss Warner she is been seen by General pricing specialist Doctor Anderson he will contact surgeon in [place] about transfer due to confirmed fistula, Interventional Radiology states patient is not candidate for percutaneous drainage, has left arm with increased edema and swollen Vascular specialist following. No nausea, vomit or diarrhea. Physical Exam Vital signs: Vital Signs 02/07/18 15:58 02/07/18 20:00 02/08/18 00:00 Temperature 97.9 F 97.5 F L 97.8 F Pulse Rate 89 93 H 88 Respiratory Rate 17 18 16 Blood Pressure 123/53 L 136/61 148/64 H Pulse Oximetry 98 98 99 02/08/18 08:00 Temperature 97.8 F Pulse Rate 83 Respiratory Rate 16 Blood Pressure 141/64 H Pulse Oximetry 97 Intake & Output 02/07/18 02/08/18 02/08/18 18:59 06:59 18:59 Intake Total 720 / 720 720 / 720 Output Total 100 / 100 750 / 750 1999 Balance 620 / 620 - -1999 Weight 49.4 kg Intake: Oral 720 / 720 720 / 720 Output: Urine 150 / 150 Hemodialysis Amount 1999 Stool Amount (Stoma) 100 / 100 600 / 600 Left Lower Abdomen 100 / 100 200 / 200 Right Lower Abdomen 400 / 400 Other: # Voids 1 1 # Bowel Movements 2 Narrative: GENERAL: NAD SKIN: Warm and dry. redness and erythema of left upper extremity HEAD: Atraumatic. Normocephalic. EYES: Pupils equal and round. No scleral icterus. No injection or drainage. ENT: No nasal bleeding or discharge. Mucous membranes pink and moist. NECK: Trachea midline. No JVD. CARDIOVASCULAR: Regular rate and rhythm. RESPIRATORY: No accessory muscle use. Clear to auscultation. Breath sounds equal bilaterally. GASTROINTESTINAL: Abdomen soft, non-tender, nondistended. Ileostomy bag in place with liquid stool, skin erythematous and dry. MUSCULOSKELETAL: Extremities without clubbing, cyanosis, or edema. No obvious deformities. Left upper extremity increasing size NEUROLOGICAL: Awake and alert. No obvious cranial nerve deficits. PSYCHIATRIC: Appropriate mood and affect; insight and judgment normal. Results - Labs CBC & Chem 7: 02/06/18 17:00 02/06/18 17:00 Laboratory Results - last 24 hr 02/07/18 14:06 PT 12.7 H D INR 1.3 APTT 19.7 L - Imaging Impressions Pelvis CT 02/07/18 00:00 CONCLUSION: Not appropriate for percutaneous drainage as above Assessment and Plan - Assessment (1) ESRD on dialysis Code(s): N18.6 - End stage renal disease; Z99.2 - Dependence on renal dialysis Status: Chronic (2) Cellulitis of left upper arm Code(s): L03.114 - Cellulitis of left upper limb Status: Acute (3) Hyperkalemia Code(s): E87.5 - Hyperkalemia Status: Acute - Plan 1. ESRD on Hemodialysis, with medical non compliance, had HD today, continue , and S. 2. Anastomotic leak and developing Fistula, has Pre sacral collection with communication to adjacent rectum She will need drainage of presacral abscess, was not possible by Interventional Radiology, here recommended Transrectal drainage or surgical intervention will be required, no role for percutaneous drainage or aspiration, as per General Surgery will need to contact surgeon in [place] about transfer due to confirmed fistula. 3. Cellulitis of the left arm seen by Vascular surgery, do not think is Cellulitis and asked to use the AV fistula. 4. Status post AV placement January 01 2018. 5. History of DVT/PE on Coumadin. DVT prophylaxis SCDs INR 3 on hold Coumadin for procedure as per surgical team. Code Status: Full code Discussed Condition With: patient and nurse Alana. Discharge Planning: General Surgery will transfer the patient to [place] to continue her management.
--- NOTE | 2018-02-08 16:00 | MB ---
cc: Tigre Rodriguez MD, Lars S MD DATE: 02/08/2018 HISTORY OF PRESENT ILLNESS: This is a 76-year-old renal failure patient who has a complex history of diverticular surgery. She underwent a surgery for perforated diverticulitis 10 or 15 years ago. She states that she had a sigmoid resection with an end colostomy. She underwent subsequent surgery to reverse the colostomy. She did well for 2 years then she developed a pelvic abscess and she underwent a subsequent operation to attempt to re-resect the anastomotic area, but the operation was abandoned and a diverting ileostomy was created. She is admitted to the hospital with vascular access problems and also difficulty with her ileostomy with leakage. She states she has been having some pains in the pelvic area, but these have been chronic. She is eating and her stoma is functioning well. She has been seen by stomal therapy and the leakage appears to have resolved. The patient underwent CT scanning recently, which shows a fluid collection in the pelvis. In addition, the patient underwent a Gastrografin enema identifying a sinus tract from the perianastomotic area to the presacral space. There was a tract and a small cavity. OBJECTIVE: On exam, her abdomen is soft, nontender, without mass. Her ileostomy appears to be flush when examined through the bag itself. I did not remove the appliance as it was recently adjusted by patient education. On digital exam of the rectum, there is no palpable mass or cavity. 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 CT scan shows that there is quite a bit of stool in the colon and that her ileostomy is not completely diverting. PLAN: Since this is a chronic process and is minimally symptomatic, I would not recommend specific treatment at this time. At some point in the future, the patient could be considered for revision of her ileostomy to create a better nipple and to staple the distal limb closed so that the stoma is completely diverting. If the patient remains minimally symptomatic this may not be necessary. Tigre Rodriguez MD DLEduardo/ct , 01:47 PM , 01:56 PM
[2018-02-08] MEDS: Simethicone 80 MG Chew Tablet PO PRN (18:43)
[2018-02-09] MEDS: Morphine Inj 4 MG/ML Vial IV.PUSH PRN ×2 (05:13→15:02)
[2018-02-09] MEDS: Simethicone 80 MG Chew Tablet PO PRN (05:25)
--- NOTE | 2018-02-09 09:09 | P.PN ---
Subjective Interval history: This is a pleasant 77 y/o Female with Hypertension, Perforated Diverticulitis, status post Colostomy ESRD T//, and status post AVG placement 01/01/[address] Ventura, went to [place] ED today for evaluation of history of abdominal pain around ileostomy site associated with leak due to increased output. patient states, as a result of this, she missed 2 sessions of dialysis including last Saturday and Saturday, was short of breath, not been able to follow doctor Lorenzo, was hyperkalemia in ER CT abdomen ordered review questionable leak around suture of ileostomy, for which general surgery has been consulted. 02/06: Patient status post Hemodialysis performed yesterday, Seen by her Primary Vascular costume specialist, status post Left Upper arm Arteriovenous Graft Placement, with arm edema, non cellulitic Recommended fistulogram if edema persist. seen in her bedroom in the presence of software specialist, will have abscess drainage by Interventional radiology tomorrow her INR 3, given vitamin K by specialist to decrease the INR for Procedure. 02/07: seen in her bedroom, discussed with nurse Miss Deleon patient stable, no nausea, vomit or diarrhea continue wound care for her Ostomy area, Pre sacral ulcer with abscess she will go for Interventional Radiology drainage once her INR is been able to be taken and below 1.5 02/08: Stable patient discussed with nurse Miss Warner she is been seen by General sensor specialist Doctor Anderson he will contact surgeon in [place] about transfer due to confirmed fistula, Interventional Radiology states patient is not candidate for percutaneous drainage, has left arm with increased edema and swollen Vascular specialist following. 02/09: Seen in her bedroom, no nausea, vomit or diarrhea, no complaint at tis time, eating well, improving her Ostomy erythema and edema. and dryness, Wound care following, awaiting final by General sensor specialist. Physical Exam Vital signs: Vital Signs 02/08/18 12:00 02/08/18 16:00 02/08/18 20:00 Temperature 97.4 F L 97.9 F 98 F Pulse Rate 100 H 99 H 103 H Respiratory Rate Blood Pressure 146/62 H 135/63 124/59 L Pulse Oximetry 99 97 100 02/08/18 23:50 02/09/18 04:00 02/09/18 04:32 Temperature 98.2 F 97.5 F L Pulse Rate 94 H 89 Respiratory Rate 18 16 20 Blood Pressure 153/70 H 159/69 H Pulse Oximetry 98 98 Intake & Output 02/08/18 02/09/18 02/09/18 18:59 06:59 18:59 Intake Total 300 / 300 Output Total 2775 / 2775 300 / 300 Balance -2475 / -2475 -300 / -300 Weight 50.6 kg Intake: Oral 300 / 300 Output: Urine 400 / 400 Stool 375 / 375 Hemodialysis Amount 1999 / 1999 Stool Amount (Stoma) 300 / 300 Right Lower Abdomen 300 / 300 Other: # Voids 0 Narrative: GENERAL: NAD SKIN: Warm and dry. redness and erythema of left upper extremity HEAD: Atraumatic. Normocephalic. EYES: Pupils equal and round. No scleral icterus. No injection or drainage. ENT: No nasal bleeding or discharge. Mucous membranes pink and moist. NECK: Trachea midline. No JVD. CARDIOVASCULAR: Regular rate and rhythm. RESPIRATORY: No accessory muscle use. Clear to auscultation. Breath sounds equal bilaterally. GASTROINTESTINAL: Abdomen soft, non-tender, nondistended. Ileostomy bag in place with liquid stool, skin erythematous and dry. MUSCULOSKELETAL: Extremities without clubbing, Left upper extremity edema and erythema. NEUROLOGICAL: Awake and alert. No obvious cranial nerve deficits. PSYCHIATRIC: Appropriate mood and affect; insight and judgment normal. Results - Labs CBC & Chem 7: 02/06/18 17:00 02/06/18 17:00 Assessment and Plan - Assessment (1) ESRD on dialysis Code(s): N18.6 - End stage renal disease; Z99.2 - Dependence on renal dialysis Status: Chronic (2) Cellulitis of left upper arm Code(s): L03.114 - Cellulitis of left upper limb Status: Acute (3) Hyperkalemia Code(s): E87.5 - Hyperkalemia Status: Acute - Plan 1. ESRD on Hemodialysis, with medical non compliance, had HD today, continue , and S. 2. Anastomotic leak and developing Fistula, has Pre sacral collection with communication to adjacent rectum She will need drainage of presacral abscess, was not possible by Interventional Radiology, here recommended Transrectal drainage or surgical intervention will be required, no role for percutaneous drainage or aspiration, as per General Surgery will need to contact surgeon in [place] about transfer due to confirmed fistula. 3. Cellulitis of the left arm seen by Vascular surgery, do not think is Cellulitis and asked to use the AV fistula. is getting Gentamicin while on HD. 4. Status post AV placement January 01 2018. Vascular specialist authorized to use the left AV fistula for HD 5. History of DVT/PE on Coumadin. DVT prophylaxis SCDs INR 3 on hold Coumadin for procedure as per surgical team. Code Status: Full code. Discussed Condition With: Nurse and patient in the room. Discharge Planning: General Surgery will transfer the patient to [place] to continue her management.
--- NOTE | 2018-02-09 10:54 | P.PNVS ---
Subjective Subjective/Hospital Course: Pt well known to me, s/p L UE ax-ax loop with PTFE on 01/01. did not have attempt at graft cannulation yesterday with HD arm edematous getting worked up for GI leak - plan TBD does endorse hand numbness that is not too bad according to her Objective Vital Signs / I&O: Vital Signs 02/08/18 12:00 02/08/18 16:00 02/08/18 20:00 Temperature 97.4 F L 97.9 F 98 F Pulse Rate 100 H 99 H 103 H Respiratory Rate 17 19 18 Blood Pressure 146/62 H 135/63 124/59 L Pulse Oximetry 99 97 100 02/08/18 23:50 02/09/18 04:00 02/09/18 04:32 Temperature 98.2 F 97.5 F L Pulse Rate 94 H 89 Respiratory Rate 18 16 20 Blood Pressure 153/70 H 159/69 H Pulse Oximetry 98 98 02/09/18 08:00 Temperature 97.9 F Pulse Rate 93 H Respiratory Rate 17 Blood Pressure 136/61 Pulse Oximetry 99 Intake & Output 02/08/18 02/09/18 02/09/18 18:59 06:59 18:59 Intake Total 300 / 300 Output Total 2775 / 2775 300 / 300 Balance -2475 / -2475 -300 / -300 Weight 50.6 kg Intake: Oral 300 / 300 Output: Urine 400 / 400 Stool 375 / 375 Hemodialysis Amount 1999 / 1999 Stool Amount (Stoma) 300 / 300 Right Lower Abdomen 300 / 300 Other: # Voids 0 Physical Exam: L UE incision intact modest edema and mild erythema difficult to appreciate thrill beyond AC ? limited by edema Impressions Enema w/Water Soluble 02/07/18 00:00 CONCLUSION: There is a fistula between the upper rectum and the presacral soft tissues as above. The fistula likely begins suture line seen on recent CT and then extends inferiorly over a length of at least [address] 02/07/18 00:00 CONCLUSION: Not appropriate for percutaneous drainage as above Assessment and Plan - Assessment (1) ESRD on dialysis Code(s): N18.6 - End stage renal disease; Z99.2 - Dependence on renal dialysis Status: Chronic (2) AVF (arteriovenous fistula) Code(s): I77.0 - Arteriovenous fistula, acquired Status: Acute - Plan s/p L UE AVG with arm edema, stable 1. Ok to use AVG for HD. Discussed with dialysis team and marked arm. 2. If unable to cannulate will need L chest catheter removed and placed on RIGHT side to improved venous drainage. 3. If arm swelling persists after catheter removed, then can perform fistulogram and potential intervention. This can be done as outpatient. 4. continue work-up and plan for GI issues, ongoing Robles Ventura MD FACS RPV[employer] animal care assistant [facility] - Heart and Vascular Surgery at [facility] [phone]
--- NOTE | 2018-02-09 14:17 | P.PNNP ---
Subjective Interval history: Possible transfer to [place] for rectal-sacral fistula repair Physical Exam Vital signs: Vital Signs 02/08/18 16:00 02/08/18 20:00 02/08/18 23:50 Temperature 97.9 F 98 F 98.2 F Pulse Rate 99 H 103 H 94 H Respiratory Rate 19 18 18 Blood Pressure 135/63 124/59 L 153/70 H Pulse Oximetry 97 100 98 02/09/18 04:00 02/09/18 04:32 02/09/18 08:00 Temperature 97.5 F L 97.9 F Pulse Rate 89 93 H Respiratory Rate 16 20 17 Blood Pressure 159/69 H 136/61 Pulse Oximetry 98 99 02/09/18 12:00 Temperature 97.8 F Pulse Rate 83 Respiratory Rate 19 Blood Pressure 127/61 Pulse Oximetry 99 Intake & Output 02/08/18 02/09/18 02/09/18 18:59 06:59 18:59 Intake Total 300 / 300 Output Total 2775 / 2775 300 / 300 Balance -2475 / -2475 -300 / -300 Weight 50.6 kg Intake: Oral 300 / 300 Output: Urine 400 / 400 Stool 375 / 375 Hemodialysis Amount 1999 / 1999 Stool Amount (Stoma) 300 / 300 Right Lower Abdomen 300 / 300 Other: # Voids 0 - Constitutional no acute distress - Routine HEENT Exam Head: Present: normocephalic Eye: Present: EOMI ENT: Present: mucous membranes moist - Routine Neck Exam Present: supple - Routine Respiratory Exam Present: decreased breath sounds - Routine Cardiovascular Exam Present: RRR - Routine Abdominal Exam Present: tenderness - Routine Skin Exam Present: intact - Routine Neurological Exam Present: alert, oriented X3 - Detailed Neurological Exam: Coma Scale Eye Opening: Spontaneous Assessment and Plan - Assessment (1) ESRD on dialysis Code(s): N18.6 - End stage renal disease; Z99.2 - Dependence on renal dialysis Status: Chronic (2) Hypertension Code(s): I10 - Essential (primary) hypertension Status: Chronic Qualifiers: Hypertension type: essential hypertension Qualified Code(s): I10 - Essential (primary) hypertension (3) Cellulitis of left upper arm Code(s): L03.114 - Cellulitis of left upper limb Status: Acute (4) Hyperkalemia Code(s): E87.5 - Hyperkalemia Status: Acute - Plan Patient is Saturday and Saturday HD done yesterday with catheter, 2L UF. Seen with Dr. Vnetura - can attempt AV graft cannulation for next HD Saturday. If graft issues due to arm swelling may consider for catheter removal and placement on right side (can be evaluated as an outpatient) Surgery following Ileostomy - apparent rectal-sacral fistula. Possible transfer to [place] for evaluation. Continue supportive care.
[2018-02-09] MEDS ORDERED: Loperamide 2 MG Capsule PO ONE (21:59)
[2018-02-10 01:39] VITALS: RESP 17
--- NOTE | 2018-02-10 07:18 | P.PNVS ---
Subjective Subjective/Hospital Course: Pt well known to me, s/p L UE ax-ax loop with PTFE on 01/01. arm better hasn't used AVG for HD getting worked up for GI leak - plan TBD hand ok this morning Objective Vital Signs / I&O: Vital Signs 02/09/18 08:00 02/09/18 12:00 02/09/18 16:00 Temperature 97.9 F 97.8 F 98.0 F Pulse Rate 93 H 83 80 Respiratory Rate 17 19 18 Blood Pressure 136/61 127/61 115/54 L Pulse Oximetry 99 99 98 02/09/18 20:00 02/09/18 22:28 02/10/18 00:00 Temperature 97.5 F L 98.0 F Pulse Rate 88 94 H Respiratory Rate 17 7 L 17 Blood Pressure 139/61 136/61 Pulse Oximetry 100 97 Intake & Output 02/09/18 02/10/18 02/10/18 18:59 06:59 18:59 Intake Total 500 / 500 Output Total 250 / 250 500 / 500 Balance 250 / 250 -500 / -500 Intake: Oral 500 / 500 Output: Stool 250 / 250 Stool Amount (Stoma) 500 / 500 Right Lower Abdomen 500 / 500 Other: # Voids 1 1 # Bowel Movements 1 Physical Exam: L UE edematous, less erythema hand ok Assessment and Plan - Assessment (1) ESRD on dialysis Code(s): N18.6 - End stage renal disease; Z99.2 - Dependence on renal dialysis Status: Chronic (2) AVF (arteriovenous fistula) Code(s): I77.0 - Arteriovenous fistula, acquired Status: Acute - Plan s/p L UE AVG with arm edema, stable 1. Ok to use AVG for HD. 2. if not going to cannulate, needs L chest catheter moved to RIGHT 3. continue work-up and plan for GI issues, ongoing 4. can be managed as outpatient from vascular surgery standpoint Robles Ventura MD FACS RPV[employer] actuarial intern [facility] - Heart and Vascular Surgery at [facility] [phone]
--- NOTE | 2018-02-10 08:20 | P.PN ---
Subjective Interval history: This is a pleasant 77 y/o Female with Hypertension, Perforated Diverticulitis, status post Colostomy ESRD T//, and status post AVG placement 01/01/[address] Ventura, went to [facility] ED today for evaluation of history of abdominal pain around ileostomy site associated with leak due to increased output. patient states, as a result of this, she missed 2 sessions of dialysis including last Saturday and Saturday, was short of breath, not been able to follow doctor Lorenzo, was hyperkalemia in ER CT abdomen ordered review questionable leak around suture of ileostomy, for which general surgery has been consulted. 02/06: Patient status post Hemodialysis performed yesterday, Seen by her Primary Vascular senior telecommunications specialist, status post Left Upper arm Arteriovenous Graft Placement, with arm edema, non cellulitic Recommended fistulogram if edema persist. seen in her bedroom in the presence of hub inventory specialist, will have abscess drainage by Interventional radiology tomorrow her INR 3, given vitamin K by specialist to decrease the INR for Procedure. 02/07: seen in her bedroom, discussed with nurse Miss Deleon patient stable, no nausea, vomit or diarrhea continue wound care for her Ostomy area, Pre sacral ulcer with abscess she will go for Interventional Radiology drainage once her INR is been able to be taken and below 1.5 02/08: Stable patient discussed with nurse Miss Warner she is been seen by General training and documentation specialist Doctor Anderson he will contact surgeon in [place] about transfer due to confirmed fistula, Interventional Radiology states patient is not candidate for percutaneous drainage, has left arm with increased edema and swollen Vascular specialist following. 02/09: Seen in her bedroom, no nausea, vomit or diarrhea, no complaint at tis time, eating well, improving her Ostomy erythema and edema. and dryness, Wound care following, awaiting final by General training and documentation specialist. 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 Physical Exam Vital signs: Vital Signs 02/09/18 12:00 02/09/18 16:00 02/09/18 20:00 Temperature 97.8 F 98.0 F 97.5 F L Pulse Rate 83 80 88 Respiratory Rate 19 18 17 Blood Pressure 127/61 115/54 L 139/61 Pulse Oximetry 99 98 100 02/09/18 22:28 02/10/18 00:00 Temperature 98.0 F Pulse Rate 94 H Respiratory Rate 7 L 17 Blood Pressure 136/61 Pulse Oximetry 97 Intake & Output 02/09/18 02/10/18 02/10/18 18:59 06:59 18:59 Intake Total 500 / 500 Output Total 250 / 250 500 / 500 Balance 250 / 250 -500 / -500 Intake: Oral 500 / 500 Output: Stool 250 / 250 Stool Amount (Stoma) 500 / 500 Right Lower Abdomen 500 / 500 Other: # Voids 1 1 # Bowel Movements 1 Narrative: GENERAL: NAD SKIN: Warm and dry. redness and erythema of left upper extremity HEAD: Atraumatic. Normocephalic. EYES: Pupils equal and round. No scleral icterus. No injection or drainage. ENT: No nasal bleeding or discharge. Mucous membranes pink and moist. NECK: Trachea midline. No JVD. CARDIOVASCULAR: Regular rate and rhythm. RESPIRATORY: No accessory muscle use. Clear to auscultation. Breath sounds equal bilaterally. GASTROINTESTINAL: Abdomen soft, non-tender, nondistended. Ileostomy bag in place. MUSCULOSKELETAL: Extremities without clubbing, Left upper extremity edema and erythema. NEUROLOGICAL: Awake and alert. No obvious cranial nerve deficits. PSYCHIATRIC: Appropriate mood and affect; insight and judgment normal. Results - Labs CBC & Chem 7: 02/06/18 17:00 02/06/18 17:00 Assessment and Plan - Assessment (1) ESRD on dialysis Code(s): N18.6 - End stage renal disease; Z99.2 - Dependence on renal dialysis Status: Chronic (2) Cellulitis of left upper arm Code(s): L03.114 - Cellulitis of left upper limb Status: Acute (3) Hyperkalemia Code(s): E87.5 - Hyperkalemia Status: Acute - Plan 1. ESRD on Hemodialysis, with medical non compliance, had HD today, continue T, Th and S. 2. Anastomotic leak and developing Fistula, has Pre sacral collection with communication to adjacent rectum She will need drainage of presacral abscess, was not possible by Interventional Radiology, here recommended Transrectal drainage or surgical intervention will be required, no role for percutaneous drainage or aspiration, as per General Surgery will need to contact surgeon in [place] about transfer due to confirmed fistula. 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 Cellulitis of the left arm seen by Vascular surgery, do not think is Cellulitis and asked to use the AV fistula. is getting Gentamicin while on HD. Again seen by Doctor Ventura recommended to use the right arm AV fistula no Cellulitis and will be done tomorrow while on Hemodialysis. if not going to cannulate needs the left upper Cath moved to the right. 4. Status post AV placement January 01 2018. Vascular specialist authorized to use the left AV fistula for HD 5. History of DVT/PE on Coumadin. re start her Coumadin today and continue follow up with Home Health care and PCP. DVT prophylaxis SCDs INR 1.3 continued her Coumadin re started today. giving five MG first dose Code Status: Full code Discussed Condition With: Patient and General senior telecommunications specialist doctor Joseph Anderson. Discharge Planning: discharge Home on [facility] for INR and Wound are, skilled nurse.
--- NOTE | 2018-02-10 09:14 | P.PNGS ---
Subjective Patient reports: feels better, pain is less Physical Exam Vital signs: Vital Signs 02/09/18 12:00 02/09/18 16:00 02/09/18 20:00 Temperature 97.8 F 98.0 F 97.5 F L Pulse Rate 83 80 88 Respiratory Rate 19 18 17 Blood Pressure 127/61 115/54 L 139/61 Pulse Oximetry 99 98 100 02/09/18 22:28 02/10/18 00:00 Temperature 98.0 F Pulse Rate 94 H Respiratory Rate 7 L 17 Blood Pressure 136/61 Pulse Oximetry 97 Intake & Output 02/09/18 02/10/18 02/10/18 18:59 06:59 18:59 Intake Total 500 / 500 Output Total 250 / 250 500 / 500 Balance 250 / 250 -500 / -500 Intake: Oral 500 / 500 Output: Stool 250 / 250 Stool Amount (Stoma) 500 / 500 Right Lower Abdomen 500 / 500 Other: # Voids 1 1 # Bowel Movements 1 - Routine Abdominal Exam Present: soft (ostomy appliance in place, skin improving, benign abdomen) Assessment and Plan - Plan presacral abscess complex medical surgical hx, diverting ileostomy with increased output concern for stump suture line leak, concern for Abscess- no fevers, abdomen mildly tender PLAN npo ostomy nurse for macerated skin and ostomy care- improving vasc Evalfor LUE abdominal exams gastrografin enema chronic fistula patient- improving eval of fluid collection appears 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
[2018-02-10 09:27] VITALS: TEMP 98.1
--- NOTE | 2018-02-10 09:46 | P.DCO ---
- Diagnosis (2) Hypertension - Physical Therapy Order: Evaluate and treat, Improve ambulation, Strength and gait training - Home Health Nursing Order: Medical education, Signs/symptoms of disease process, Medication education-adverse effect, Wound care and dressing changes, Nursing assessment with vital signs Instructions: Follow Coumadin on daily bases she has target of INR 2 to 3 and hold Coumadin if INR in 3 or over. - Certification I have seen patient Leidy Hare on 02/10/18. My clinical findings support the need for the requested home health care services because: Limited mobility due to disease progression I certify that my clinical findings support that this patient is homebound because: Unsafe to leave home unassisted (2) Hypertension Qualifiers: Hypertension type: essential hypertension Qualified Code(s): I10 - Essential (primary) hypertension
--- NOTE | 2018-02-10 09:48 | P.DS ---
Date of admission: 02/05/18 13:50 Primary care physician: UNKNOWN Attending physician on discharge: Stephane Woodard Anticipated date of discharge: 02/10/18 Brief History from admission: 77 year female with a PMH of HTN, H/o Perforated Diverticulitis s/p Colostomy, ESRD on HD T// and s/p AVG placement 01/01/[address] Ventura, went to [facility] ED today for evaluation of several history of abdominal pain around ileostomy site associated with leak due to increased output. patient states, as a result of this, she missed 2 sessions of dialysis including last Saturday and yesterday. She is therefore short of breath as well. Patient states, she has not been able to follow-up with Dr. Ventura. While in the ED, she was found to have elevated potassium for which she was treated. CT abdomen ordered review questionable leak around suture of ileostomy, for which general surgery has been consulted. DS: Diagnosis - Discharge Diagnosis (1) ESRD on dialysis Status: Chronic (2) Hypertension Status: Chronic (3) Hypercalcemia Status: Acute (4) AVF (arteriovenous fistula) Status: Acute (5) Hypotension Status: Acute (6) Hypoglycemia Status: Acute (7) Sepsis Status: Acute (8) Cellulitis of left upper arm Status: Acute (9) Hyperkalemia Status: Acute DS: Summary Hospital Course: This is a pleasant 77 y/o Female with Hypertension, Perforated Diverticulitis, status post Colostomy ESRD T//, and status post AVG placement 01/01/[address] Ventura, went to [facility] ED today for evaluation of history of abdominal pain around ileostomy site associated with leak due to increased output. patient states, as a result of this, she missed 2 sessions of dialysis including last Saturday and Saturday, was short of breath, not been able to follow doctor Ventura, was hyperkalemia in ER CT abdomen ordered review questionable leak around suture of ileostomy, for which general surgery has been consulted. 02/06: Patient status post Hemodialysis performed yesterday, Seen by her Primary Vascular obgyn specialist, status post Left Upper arm Arteriovenous Graft Placement, with arm edema, non cellulitic Recommended fistulogram if edema persist. seen in her bedroom in the presence of promotions specialist, will have abscess drainage by Interventional radiology tomorrow her INR 3, given vitamin K by specialist to decrease the INR for Procedure. 02/07: seen in her bedroom, discussed with nurse Miss Deleon patient stable, no nausea, vomit or diarrhea continue wound care for her Ostomy area, Pre sacral ulcer with abscess she will go for Interventional Radiology drainage once her INR is been able to be taken and below 1.5 02/08: Stable patient discussed with nurse Alana she is been seen by General fish hatchery specialist Doctor Justin he will contact surgeon in [place] about transfer due to confirmed fistula, Interventional Radiology states patient is not candidate for percutaneous drainage, has left arm with increased edema and swollen Vascular specialist following. 02/09: Seen in her bedroom, no nausea, vomit or diarrhea, no complaint at tis time, eating well, improving her Ostomy erythema and edema. and dryness, Wound care following, awaiting final by General fish hatchery specialist. 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 Assessment and Plan - Assessment (1) ESRD on dialysis Code(s): N18.6 - End stage renal disease; Z99.2 - Dependence on renal dialysis Status: Chronic (2) Cellulitis of left upper arm Code(s): L03.114 - Cellulitis of left upper limb Status: Acute (3) Hyperkalemia Code(s): E87.5 - Hyperkalemia Status: Acute - Plan 1. ESRD on Hemodialysis, with medical non compliance, had HD today, continue , and S. 2. Anastomotic leak and developing Fistula, has Pre sacral collection with communication to adjacent rectum She will need drainage of presacral abscess, was not possible by Interventional Radiology, here recommended Transrectal drainage or surgical intervention will be required, no role for percutaneous drainage or aspiration, as per General Surgery will need to contact surgeon in [place] about transfer due to confirmed fistula. 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 Cellulitis of the left arm seen by Vascular surgery, do not think is Cellulitis and asked to use the AV fistula. is getting Gentamicin while on HD. Again seen by Doctor Lorenzo recommended to use the right arm AV fistula no Cellulitis and will be done tomorrow while on Hemodialysis. if not going to cannulate needs the left upper Cath moved to the right. 4. Status post AV placement January 01 2018. Vascular specialist authorized to use the left AV fistula for HD 5. History of DVT/PE on Coumadin. re start her Coumadin today and continue follow up with Home Health care and PCP. DVT prophylaxis SCDs INR 1.3 continued her Coumadin re started today. giving five MG first dose Code Status: Full code Discussed Condition With: Patient and General obgyn specialist doctor Joseph Anderson. Discharge Planning: discharge Home on [facility] for INR and Wound are, skilled nurse. - Time Spent with Patient Total time spent providing and/or coordinating discharge services: Greater than 30 minutes - Quality: VTE Deep Vein Thrombosis/Pulmonary Embolism Present on Admission: No Exam Vital signs: Vital Signs 02/09/18 12:00 02/09/18 16:00 02/09/18 20:00 Temperature 97.8 F 98.0 F 97.5 F L Pulse Rate 83 80 88 Respiratory Rate 19 18 17 Blood Pressure 127/61 115/54 L 139/61 Pulse Oximetry 99 98 100 02/09/18 22:28 02/10/18 00:00 02/10/18 08:00 Temperature 98.0 F 98.1 F Pulse Rate 94 H 100 H Respiratory Rate 7 L 17 17 Blood Pressure 136/61 133/69 Pulse Oximetry 97 98 Intake & Output 02/09/18 02/10/18 02/10/18 18:59 06:59 18:59 Intake Total 500 / 500 Output Total 250 / 250 500 / 500 Balance 250 / 250 -500 / -500 Intake: Oral 500 / 500 Output: Stool 250 / 250 Stool Amount (Stoma) 500 / 500 Right Lower Abdomen 500 / 500 Other: # Voids 1 1 # Bowel Movements 1 Narrative: GENERAL: NAD SKIN: Warm and dry. redness and erythema of left upper extremity HEAD: Atraumatic. Normocephalic. EYES: Pupils equal and round. No scleral icterus. No injection or drainage. ENT: No nasal bleeding or discharge. Mucous membranes pink and moist. NECK: Trachea midline. No JVD. CARDIOVASCULAR: Regular rate and rhythm. RESPIRATORY: No accessory muscle use. Clear to auscultation. Breath sounds equal bilaterally. GASTROINTESTINAL: Abdomen soft, non-tender, nondistended. Ileostomy bag in place. MUSCULOSKELETAL: Extremities without clubbing, Left upper extremity edema and erythema. NEUROLOGICAL: Awake and alert. No obvious cranial nerve deficits. PSYCHIATRIC: Appropriate mood and affect; insight and judgment normal. Results Procedures completed during hospitalization: None - Impressions ITS Impressions Enema w/Water Soluble 02/07/18 00:00 CONCLUSION: There is a fistula between the upper rectum and the presacral soft tissues as above. The fistula likely begins suture line seen on recent CT and then extends inferiorly over a length of at least [address] 02/07/18 00:00 CONCLUSION: Not appropriate for percutaneous drainage as above Discharge Plan - Discharge Disposition Patient Disposition: W/Home Health Service - Discharge Condition Condition: Stable - Discharge Order Discharge Orders: Discharge Order (Routine); Ordered 02/10/18 Ordered By: Stephane Woodard - Discharge Details Anticipated Discharge Date: 02/10/18 Discharge Comment: Follow up with General Surgery as outpatient - Physicians Team Primary Care Provider: UNKNOWN, Attending Provider: Stephane Woodard Other Providers: Joseph Anderson MD ; Dewayne Yanez MD ; Robles Ventura MD ; Kristin Foster ; Tigre Rodriguez MD
[2018-02-10 12:16] VITALS: BP 132/67; PULSE 99; O2SAT 97
--- NOTE | 2018-02-10 14:39 | P.PNWCN ---
Wound Care Nurse Consult Description: Consult for Ostomy Management of ileostomy per Dr Medina Communicated with: KALYAN hernandez and patient Recommendation: Empty pouch of effluent when 1/3-1/2 full Change ostomy appliance Q3 to 5 Days and PRN for leaks. Change ostomy appliance for leaks, please do not reinforce wafer with tape. When changing ostomy appliance, please cleanse peristomal skin with water only and washcloth only and gently pat dry. Encrust peristomal skin breakdown as follows: Apply stoma powder and wipe off excess, then spray with Cavilon skin barrier film spray repeat process one time. Apply brennan seal molding a ring around stoma.Apply proper fitting appliance that fits stoma size 1/2 inch tall and 3/4 inch wide. Bowel Diversion Stoma - Bowel Stoma Right Lower Abdomen Stoma Appearance: Beefy Red, Oval Loop Supporting Dc: No Collection Device: Two-piece Drainage Description: Soft, Brown, Yellow Bile Wafer Size: 1 3/4 Moldable 45mm Stoma Care: Pouch and Wafer Changed, Skin Care Aidee-Stomal Skin Appearance: Intact Aidee-Stomal Surrounding Tissue Sensation Description: Warmth (peristomal skin has improved) - Additional Information Additional Information: Patient seen for follow up of ostomy management for ileostomy. Removed 1 3/4 moldable two piece appliance placed by RN over the weekend. Julieta reports some leaking. Ileostomy appliance was changed by writer editor as follows. Removed appliance in place with adhesive remover and cleansed periwound skin with water and washcloth and patted dry.Peristomal skin has improved. Stoma is red in color and measures 1/2 inch tall and 3/4 inch wide. Applied stoma powder and brennan seal to encrust, before applying Brennan seal in place molded around stoma. Applied 1 3/4 moldable two piece Durahesive wafer in place with adaptor and pouch. Patient instructed on staying hydrated wit ileostomy and changing appliance as needed if leaking. Supplies left with patient to go home.
[2018-02-10] MEDS ORDERED: Loperamide 2 MG Capsule PO SCH (21:00)
== END 2018-02-10 13:43 | disposition home health service (06) ==
LOC: NEDDLT 05:44 → N07 13:50 → NEDDLT 13:58
PROVIDERS: ADMIT Internal Medicine; ATTEND Internal Medicine

== ENCOUNTER 2018-02-12 16:39 | Inpatient (IN) ==
[2018-02-12 20:03] LABS: Baso % (Auto) 0.5 % (0.0-2.0); Eos # (Auto) 0.1 th/mm3 (0.0-0.4); Eos % (Auto) 0.9 % (0.0-4.0); Hematocrit 38.3 % (35.0-46.0); Hemoglobin 12.4 gm/dL (11.6-15.3); Lymph # (Auto) 2.3 th/mm3 (1.0-4.8); Lymph % (Auto) 24.1 % (9.0-44.0); Mean Corpuscular HGB Conc 32.5 % (32.0-36.0); Mean Corpuscular Hemoglobin 33.3 pg (27.0-34.0); Mean Corpuscular Volume 102.5 fL (80.0-100.0); Mean Platelet Volume 8.2 fL (7.0-11.0); Mono # (Auto) 0.9 th/mm3 (0.0-0.9); Mono % (Auto) 9.7 % (0.0-8.0); Neut # (Auto) 6.3 th/mm3 (1.8-7.7); Neut % (Auto) 64.8 % (16.0-70.0); Platelet Count 133 th/mm3 (150-450); Red Blood Count 3.74 mil/mm3 (4.00-5.30); Red Cell Distribution Width 18.2 % (11.6-17.2); White Blood Count 9.7 th/mm3 (4.0-11.0)
[2018-02-12 20:17] LABS: Anion Gap 12 meq/L (5-15)
[2018-02-12 20:19] LABS: Alanine Aminotransferase 19 U/L (10-53); Albumin 3.3 g/dL (3.4-5.0); Alkaline Phosphatase 219 U/L (45-117); Aspartate Aminotransferase 25 U/L (15-37); Blood Urea Nitrogen 74 mg/dL (7-18); Calcium 9.4 mg/dL (8.5-10.1); Carbon Dioxide 14.7 meq/L (21.0-32.0); Chloride 99 meq/L (98-107); Glomerular Filtration Rate 4 mL/min (>89); Glucose,Random 78 mg/dL (74-106); Magnesium 2.1 mg/dL (1.5-2.5); Phosphorus 6.5 mg/dL (2.5-4.9); Sodium 126 meq/L (136-145); Total Protein 9.5 g/dL (6.4-8.2)
[2018-02-12 20:22] LABS: Potassium 7.3 meq/L (3.5-5.1)
[2018-02-12] MEDS ORDERED: Dextrose 50% in Water 50 ML Vial IV.PUSH ONE (20:24)
--- NOTE | 2018-02-12 20:43 | XR ---
EXAM DATE: 02/12/2018 8:00 PM EDT AGE/SEX: 77 years / Female INDICATIONS: Patient presents with left arm swelling, dialysis and vas catheter on left side. CLINICAL DATA: This is the patient's initial encounter. Patient reports that signs and symptoms have been present for 2 days and indicates a pain score of 8/10. MEDICAL/SURGICAL HISTORY: Renal disease. . Ileostomy Vas catheter placement COMPARISON: [facility] [place], CHEST 1V SINGLE AP, 01/20/2018. . FINDINGS: A single AP view of the chest demonstrates the lungs to be symmetrically aerated without evidence of mass, infiltrate or effusion. The cardiomediastinal contours are unremarkable. Osseous structures a re intact. Left subclavian double-lumen catheter in place with tips projected in the right atrium. CONCLUSION: The lungs are clear. Electronically signed by: Robin Agarwal MD 02/12/2018 8:42 PM EDT
--- NOTE | 2018-02-12 22:23 | CT ---
EXAM DATE: 02/12/2018 9:58 PM EDT AGE/SEX: 77 years / Female INDICATIONS: Abdominal pain. High green output ileostomy. CLINICAL DATA: This is the patient's initial encounter. Patient reports that signs and symptoms have been present for 2 days and indicates a pain score of 4/10. MEDICAL/SURGICAL HISTORY: Sepsis. Hypertension. Deep venous thrombosis. Acute hyperkalemia, dialysis. . Ileostomy, IVC filter. RADIATION DOSE: 5.67 CTDI (mGy) COMPARISON: [facility], CT ABDOMEN & PELVIS W/O CONTRAST, 02/05/2018. . TECHNIQUE: Multiple contiguous axial images were obtained through the abdomen. Images were obtained using multiple row detector helical technique. Using automated exposure control and adjustment of the mA and/or kV according to patient size, radiation dose was kept as low as reasonably achievable to o btain optimal diagnostic quality images. DICOM format image data is available electronically for rev iew and comparison. FINDINGS: Lower Lungs: Focal opacity in the medial left lower lung adjacent to the pleural surface measuring 5 x 10 mm is similar in appearance to prior CT. The remainder of the lower lungs are clear Liver: The liver has a homogeneous density without space-occupying lesion for noncontrast technique. There is no dilation of the biliary tree. No calcified gallstones. Spleen: Homogeneous density without enlargement. Pancreas: Unremarkable without mass or calcification. Kidneys: Normal in size and shape. Nonobstructing 2 mm stone mid pole left kidney and some faint med ullary calcifications in the right kidney are stable from prior. No evidence of mass or hydronephrosi s. Adrenal Glands: Unremarkable. Aorta: The aorta and proximal iliac vessels are grossly unremarkable without aneurysmal dilation. Bowel/Mesentery: No dilated loops of small or large bowel. Evaluation of right lower quadrant ileost kamila is stable from prior. Abdominal Wall: Intact. Retroperitoneum: The presacral mass is similar in size to prior CT, measuring 5.2 cm in width and 2. 1 cm in AP dimension. Focal collection of gas was seen within this area on the prior CT; the gas has resolved. No destruction of the adjacent sacrum. IVC filter in place. Bladder: Contours are smooth. Reproductive Organs: No abnormal masses or calcifications seen. Inguinal: The inguinal region is unremarkable without evidence of adenopathy. Bony Structures: Unremarkable. CONCLUSION: 1. Interval resolution of gas within the presacral soft tissue density. 2. No dilated loops of small or large bowel. 3. Stable 2 mm nonobstructing left renal stone. Electronically signed by: Robin Agarwal MD 02/12/2018 10:22 PM EDT
--- NOTE | 2018-02-12 22:58 | ED ---
HPI General Chief complaint: Skin/Abscess/Foreign Body Stated complaint: weakness Time Seen by Provider: 02/12/18 19:04 Source: patient and EMS Mode of arrival: EMS History of Present Illness HPI narrative: The patient is a 77-year-old female on dialysis Saturday and Saturday but has not dialyzed since last because of complications of left upper extremity. She had a recent admission for cellulitis on the left upper extremity where she had an aVF placed 01/01/[address] Ventura. Patient has multiple complaints that include abdominal pain and nausea high ostomy output which she had in the past and not feeling well. It appears that she was very recently admitted for cellulitis of the affected extremity had a consultations by ID and was subsequently discharged. The patient claims that she went to dialysis today and the dialysis doctor said that he was not feeling comfortable dialyzing her because of her left upper arm. Important to note that the patient has a left subclavian permacath that she has been using for dialysis for the past 4 months so it is unknown why they do not use that port for dialysis today. Associated symptoms: malaise, shortness of breath and weakness Treatments prior to arrival: none Related Data Home Medications Medication Instructions Recorded Confirmed ondansetron HCl [Zofran] 8 mg PO TID PRN 01/10/18 02/12/18 tramadol 50 mg PO Q6H 01/10/18 02/12/18 metoprolol succinate 50 mg PO DAILY 02/05/18 02/12/18 loperamide [Imodium A-D] 2 mg PO BID 02/08/18 02/12/18 Previous Rx's Medication Instructions Recorded pantoprazole 40 mg PO DAILY #30 tab 01/23/18 warfarin 3 mg PO DAILY #30 tab 01/23/18 Allergies Allergy/AdvReac Type Severity Reaction Status Date / Time Sulfa (Sulfonamide Allergy Swelling Verified 02/05/18 05:53 Antibiotics) Review of Systems ROS: all other systems reviewed are negative Constitutional Reports body ache(s), Reports fatigue, Denies fever(s), Reports malaise, Reports poor appetite and Reports weakness Gastrointestinal Reports as per HPI, Denies hematochezia, Denies cramping, Reports loose stools and Reports nausea PMFSH Medical History Medical History Absent parathyroid gland (Acute) Anemia (Acute) DVT (deep venous thrombosis) (Acute) Diverticulitis of colon with perforation (Acute) End stage renal disease on dialysis (Acute) History of blood product transfusion (Acute) Hx of hysterectomy (Acute) Hypertension (Acute) Pulmonary embolism (Acute) Vascular dialysis catheter in place (Acute) Surgical History Surgical History Hx of colostomy (Acute) Hx of ileostomy (Acute) Family History Family History Son Kidney disease Daughter Kidney disease Social History Social History Substance History: No History of Abuse Second Hand Smoke Exposure: No Smoking Status: Never smoker How Often Do You Have a Drink Containing Alcohol: Never Recent Travel in [facility] within the Last 8 Weeks: No Recent Out of Country Travel within the Last 8 Weeks: No Immunization History Tetanus Immunization: >5 Years Hx Influenza Vaccine This Season: Yes Exam Narrative Exam Narrative: GENERAL: Alert and oriented in no distress SKIN: Focused skin assessment warm/dry. HEAD: Atraumatic. Normocephalic. EYES: Pupils equal and round. No scleral icterus. No injection or drainage. ENT: No nasal bleeding or discharge. Mucous membranes pink and moist. NECK: Trachea midline. No JVD. CARDIOVASCULAR: Regular rate and rhythm. No murmur appreciated. RESPIRATORY: No accessory muscle use. Clear to auscultation. Breath sounds equal bilaterally. GASTROINTESTINAL: Abdomen soft, non-tender, nondistended. Hepatic and splenic margins not palpable. MUSCULOSKELETAL: Left upper extremity aVF with audible bruits. Soft tissue swelling and pitting edema noted with erythema not suggestive of cellulitis at this time does not feel warm to touch and it resolves when we raise the patient' s arm. NEUROLOGICAL: Awake and alert. No obvious cranial nerve deficits. Motor grossly within normal limits. Normal speech. PSYCHIATRIC: Appropriate mood and affect; insight and judgment normal. Course Hospital Course: Patient with a hyperkalemia of 7.3 for which she was given D50 and subcu insulin. Her eradicator is Dr. Gleason. On-call note nephrology was consulted and initiated dialysis in the emergency department. Repeat potassium prior to initiation of dialysis was 6.5. She has peak T waves on EKG but no other abnormalities. We did not give her calcium gluconate due to elevated calcium. Not appearing toxic. High output ileostomy also noted and she has an unremarkable CT of the abdomen pelvis. No infectious process noted on chest x- ray. Hemodynamically stable not appearing toxic. Reevaluation(s) Reevaluation #1: Patient is resting comfortably in no distress receiving hemodialysis. Time: 23:50 Consultations Consultation #1: Dr. Umanzor nephrology on-call was consulted he will initiate dialysis. Recommends admission to the ICU Time: 22:56 Initial Documented Vital Signs Temperature 98.6 F 02/12/18 16:50 Pulse Rate 98 H 02/12/18 16:50 Respiratory Rate 17 02/12/18 16:50 Blood Pressure 103/59 L 02/12/18 16:50 Pulse Oximetry 95 02/12/18 16:50 Last Documented Vital Signs Temperature 98.6 F 02/12/18 16:50 Pulse Rate 90 02/13/18 00:02 Respiratory Rate 19 02/13/18 00:02 Blood Pressure 148/66 H 02/13/18 00:02 Pulse Oximetry 98 02/13/18 00:02 Critical Care Time Critical Care Time: Yes Total Critical Care Time: 30 Attestation: Aggregate critical care time was 30 minutes. Time to perform other separately billable procedures was not included in the critical care time. My time did not include minutes spent treating any other patients simultaneously or on activities that did not directly contribute to the patient's treatment. The services I provided to this patient were to treat and/or prevent clinically significant deterioration that could result in: Permanent disability loss of current lifestyle I provided critical care services requiring my management, as noted below: Chart data review, documentation time, medication orders and management, vital sign assessments/reviewing monitor data, ordering and reviewing lab tests, ordering and interpreting/reviewing x-rays and diagnostic studies, care of the patient and discussion of the patient with the admitting physicians. Medical Decision Making MDM Narrative Medical decision making narrative: Patient with multiple complaints likely secondary to missing dialysis for the past 2 sessions. She is noncompliant with her sessions as it was noted on previous notes. Nephrology was consulted. She was treated for hyperkalemia CT abdomen was unremarkable admitted for further evaluation and treatment. Went to the ICU based on nephrology recommendations. Medical Screen Exam Complete: Yes Emergency Medical Condition: Yes Medical Records Medical records reviewed: Yes I reviewed the patient's medical records. Lab Data Lab results reviewed: Yes I reviewed the patient's lab results. Result diagrams: 02/12/18 19:40 02/12/18 22:48 Lab Results 02/12/18 02/12/18 02/12/18 Range/Units 19:40 19:40 22:48 WBC 9.7 (4.0-11.0) th/mm3 RBC 3.74 L (4.00-5.30) mil/mm3 Hgb 12.4 (11.6-15.3) gm/dL Hct 38.3 (35.0-46.0) % MCV 102.5 H (80.0-100.0) fL MCH 33.3 (27.0-34.0) pg MCHC 32.5 (32.0-36.0) % RDW 18.2 H (11.6-17.2) % Plt Count 133 L (150-450) th/mm3 MPV 8.2 (7.0-11.0) fL Neut % (Auto) 64.8 (16.0-70.0) % Lymph % (Auto) 24.1 (9.0-44.0) % [place] % (Auto) 9.7 H (0.0-8.0) % Eos % (Auto) 0.9 (0.0-4.0) % Baso % (Auto) 0.5 (0.0-2.0) % Neut # (Auto) 6.3 (1.8-7.7) th/mm3 Lymph # (Auto) 2.3 (1.0-4.8) th/mm3 [place] # (Auto) 0.9 (0.0-0.9) th/mm3 Eos # (Auto) 0.1 (0.0-0.4) th/mm3 Baso # (Auto) 0.0 (0.0-0.2) th/mm3 WBC Differential . Differential Comment Auto diff final Sodium 126 L (136-145) meq/L Potassium 7.3 H* 6.5 H D (3.5-5.1) meq/L Chloride 99 (98-107) meq/L Carbon Dioxide 14.7 L (21.0-32.0) meq/L Anion Gap 12 (5-15) meq/L BUN 74 H (7-18) mg/dL Creatinine 8.74 H (0.50-1.00) mg/dL Estimated GFR 4 L (>89) mL/min Random Glucose 78 (74-106) mg/dL Calcium 9.4 (8.5-10.1) mg/dL Phosphorus 6.5 H (2.5-4.9) mg/dL Magnesium 2.1 (1.5-2.5) mg/dL Total Bilirubin 0.3 (0.2-1.0) mg/dL AST 25 (15-37) U/L ALT 19 (10-53) U/L Alkaline Phosphatase 219 H (45-117) U/L Total Protein 9.5 H D (6.4-8.2) g/dL Albumin 3.3 L (3.4-5.0) g/dL Imaging Data Radiologist's impression: Abdomen/Pelvis CT 02/12/18 19:26 CONCLUSION: 1. Interval resolution of gas within the presacral soft tissue density. 2. No dilated loops of small or large bowel. 3. Stable 2 mm nonobstructing left renal stone. Chest X-Ray 02/12/18 19:26 CONCLUSION: The lungs are clear. ECG Data Attestation: I personally reviewed and interpreted this ECG as follows: Interpretation: EKG obtained at 2030 revealed sinus rhythm 83 bpm peak T waves on precordial leads. [place] 188 ms QTc 380 ms no signs of acute ischemia possible right atrial enlargement Discharge Plan Discharge Disposition Patient Disposition: 30 Still Patient Discharge Condition Condition: Critical Discharge Details Diagnosis: ESRD on dialysis, Hyperkalemia Physicians Team ED Provider: Luis Alfredo Gonsalves Primary Care Provider: Amol Chong Attending Provider: Fauzia Kellogg Other Providers: Kristin Foster ; Tosha Umanzor Discharge Interventions Interventions: Vital Signs Last Done: 02/12/18 20:25 Status ED Status: Admitted Patient
[2018-02-12] MEDS ORDERED: Acetaminophen 325 MG Tablet PO PRN ×2 (23:18→23:55)
[2018-02-12] MEDS ORDERED: Sod Chloride 0.9% Inj 1,000 ML OTHER PRN ×2 (23:18)
[2018-02-12] MEDS ORDERED: Gelatin 12 MM/7 MM Topical Foam TOPICAL PRN (23:18)
[2018-02-12] MEDS ORDERED: Albumin Human 25% Inj 100 ML IV.SIG PRN (23:18)
[2018-02-12] MEDS ORDERED: Heparin 10,000 UNITS/10 ML Vial (for IV use) OTHER PRN ×2 (23:18)
[2018-02-12] MEDS ORDERED: Sod Chloride 0.9% Inj 1,000 ML IV.CONT PRN (23:18)
[2018-02-12] MEDS ORDERED: Bisacodyl 10 MG Supp RECTAL PRN (23:55)
[2018-02-12] MEDS ORDERED: Temazepam 15 MG Capsule PO PRN (23:55)
[2018-02-13] MEDS ORDERED: Warfarin Consult Pharmacy OTHER PRN (00:13)
--- NOTE | 2018-02-13 00:25 | P.HP ---
History of Present Illness Service: [facility] Primary Care Physician: Amol Chong MD History of Present Illness: 77-year-old female with past medical history significant for hypertension, perforated diverticulitis status post colectomy with end ileostomy, end-stage renal disease on hemodialysis Saturday//Saturday, status post fistula placement on 01/01/[address] Ventura and history of PE/DVT on Coumadin presents to the emergency department with a myriad of complaints. She reports pain and swelling in the left upper extremity that has been present since her fistula placement. Her fistula has not been accessed. She is dialyzed through a PermCath. She went to dialysis today however was sent from dialysis to the emergency department for evaluation of abdominal pain and nausea with high ostomy output. On arrival to the emergency department the patient was found to be hyperkalemic with a potassium of 7.3. The patient denies any chest pain or shortness of breath. No fevers/chills. No lateralizing signs/symptoms. Inpatient Certification: I certify that the inpatient services were ordered in accordance with Medicare regulations governing the order. This includes certification that hospital inpatient services are reasonable and necessary and in the case of services not specified as inpatient-only under 42 CFR 419.22(n), that they are appropriately provided as inpatient services in accordance to with the 2-midnight benchmark under 43 CFR 412.3(e) Estimated Total Length of Stay (Days): 3 Plans for Post Hospital Care: Home Review of Systems All other systems reviewed negative except as stated in HPI PMFSH - History History Provided By: Patient - Medical History Medical History: Medical History (Last Reviewed 02/05/18 @ 21:24 by Leidy Mejia RN) Absent parathyroid gland Anemia DVT (deep venous thrombosis) Diverticulitis of colon with perforation End stage renal disease on dialysis History of blood product transfusion Hx of hysterectomy Hypertension Pulmonary embolism Vascular dialysis catheter in place - Surgical History Surgical History: Surgical History (Last Reviewed 02/05/18 @ 06:48 by Gary Barba) Hx of colostomy Hx of ileostomy - Family History Family History: Family History (Last Reviewed 02/05/18 @ 06:48 by Gary Barba) Son Kidney disease Daughter Kidney disease - Tobacco History Second Hand Smoke Exposure: No Smoking Status: Never smoker - Alcohol History How Often Do You Have a Drink Containing Alcohol: Never - Substance Use History Substance History: No History of Abuse - Travel History Recent Travel in the [place] Within the Last 8 Weeks: No Recent Travel Out of the Country Within the Last 8 Weeks: No - Immunization History Tetanus Immunization: >5 Years Hx Influenza Vaccine This Season: Yes Medications and Allergies Active Medications: Active Medications Acetaminophen (Tylenol) 650 mg PO UNSCH PRN PRN Reason: SEE LABEL COMMENTS Acetaminophen (Tylenol) 650 mg PO Q4H PRN PRN Reason: Temp > 100.4 Bisacodyl (Dulcolax Supp) 10 mg RECTAL DAILY PRN PRN Reason: SEVERE CONSITIPATION Clonidine HCl (Catapres) 0.1 mg PO UNSCH PRN PRN Reason: SEE LABEL COMMENTS Diphenhydramine HCl (Benadryl) 25 mg PO UNSCH PRN PRN Reason: SEE LABEL COMMENTS Gelatin (Gelfoam 12 Mm/7 Mm Topical) 1 foam TOPICAL PRN PRN PRN Reason: help stop bleeding from site Gentamicin Sulfate (Gentamicin Inj) 20 mg OTHER WITH DIALYSIS PRN PRN Reason: Dwell Gentamycin Lock Heparin Sodium (Porcine) (Heparin Inj) 8,000 units OTHER WITH DIALYSIS PRN PRN Reason: for machine prime Heparin Sodium (Porcine) (Heparin Inj) 1,000 units OTHER WITH DIALYSIS PRN PRN Reason: Dwell Heparin to Fill Catheter Sodium Chloride (Ns Inj) 1,000 mls @ 0 mls/hr OTHER .Q0M PRN PRN Reason: for prime and rinse back Sodium Chloride (Ns Inj) 1,000 mls @ 200 mls/hr OTHER .Q5H PRN PRN Reason: for dialyzer flush PRN Albumin Human (Flexbumin 25% Inj) 100 mls @ 60 mls/hr IV.SIG WITH DIALYSIS PRN PRN Reason: hypotension / volume replace Sodium Chloride (Ns Inj) 1,000 mls @ 0 mls/hr IV.CONT .Q0M PRN PRN Reason: hypotension / volume replace Nitroglycerin (Nitrostat Sl) 0.4 mg SL Q5M PRN PRN Reason: CHEST PAIN Ondansetron HCl (Zofran Inj) 4 mg IV.PUSH UNSCH PRN PRN Reason: NAUSEA OR VOMITING Sennosides (Senokot) 17.2 mg PO Q12H PRN PRN Reason: Moderate Constipation Sodium Chloride (Ns Flush) 5 ml IV.FLUSH PRN PRN PRN Reason: flush each lumen during HD Temazepam (Restoril) 15 mg PO HS PRN PRN Reason: INSOMNIA Allergies Allergy/AdvReac Type Severity Reaction Status Date / Time Sulfa (Sulfonamide Allergy Swelling Verified 02/05/18 05:53 Antibiotics) Home Medications Medication Instructions Recorded Confirmed Type ondansetron HCl [Zofran] 8 mg PO TID PRN 01/10/18 02/12/18 History tramadol 50 mg PO Q6H 01/10/18 02/12/18 History metoprolol succinate 50 mg PO DAILY 02/05/18 02/12/18 History loperamide [Imodium A-D] 2 mg PO BID 02/08/18 02/12/18 History Exam Vital signs: Vital Signs 02/12/18 16:50 02/12/18 19:24 02/12/18 20:25 Temperature 98.6 F Pulse Rate 98 H 88 67 Respiratory Rate 17 17 20 Blood Pressure 103/59 L 123/59 L 127/60 Pulse Oximetry 95 99 98 02/13/18 00:02 Temperature Pulse Rate 90 Respiratory Rate 19 Blood Pressure 148/66 H Pulse Oximetry 98 Intake & Output 02/12/18 02/12/18 02/13/18 06:59 18:59 06:59 Weight 51.256 kg Narrative: Gen.: No acute distress Head: Normocephalic. Atraumatic. EENT: Pupils equal round and reactive to light. Nose without drainage. Airway intact. Throat without injection. Cardiovascular: Regular rate and rhythm. No murmurs, rubs or gallops. Respiratory: Lungs clear to auscultation bilaterally. No wheezes or rhonchi. Abdomen: Soft, nontender, nondistended. No peritoneal signs. Musculoskeletal: No gross deformities. No edema. Skin: Edema of the left upper extremity with some surrounding erythema. No induration or fluctuance. Neuro: Sensory and motor grossly intact. Cranial nerves II through XII grossly intact. Results - Labs CBC & Chem 7: 02/12/18 19:40 02/12/18 22:48 Labs: Laboratory Results - last 24 hr 02/12/18 02/12/18 02/12/18 19:40 19:40 22:48 WBC 9.7 RBC 3.74 L Hgb 12.4 Hct 38.3 MCV 102.5 H MCH 33.3 MCHC 32.5 RDW 18.2 H Plt Count 133 L MPV 8.2 Neut % (Auto) 64.8 Lymph % (Auto) 24.1 [place] % (Auto) 9.7 H Eos % (Auto) 0.9 Baso % (Auto) 0.5 Neut # (Auto) 6.3 Lymph # (Auto) 2.3 [place] # (Auto) 0.9 Eos # (Auto) 0.1 Baso # (Auto) 0.0 WBC Differential . Differential Comment Auto diff final Sodium 126 L Potassium 7.3 H* 6.5 H D Chloride 99 Carbon Dioxide 14.7 L Anion Gap 12 BUN 74 H Creatinine 8.74 H Estimated GFR 4 L Random Glucose 78 Calcium 9.4 Phosphorus 6.5 H Magnesium 2.1 Total Bilirubin 0.3 AST 25 ALT 19 Alkaline Phosphatase 219 H Total Protein 9.5 H D Albumin 3.3 L - Imaging Impressions Abdomen/Pelvis CT 02/12/18 19:26 CONCLUSION: 1. Interval resolution of gas within the presacral soft tissue density. 2. No dilated loops of small or large bowel. 3. Stable 2 mm nonobstructing left renal stone. Chest X-Ray 02/12/18 19:26 CONCLUSION: The lungs are clear. Caprini VTE Risk Assessment Caprini VTE Risk Assessment: Moderate/High Risk (score >= 2) Caprini Risk Assessment Model: Point Value = 1 Point Value = 2 Point Value = 3 Point Value = 5 Age 41-60 Minor surgery BMI > 25 kg/m2 Swollen legs Varicose veins or History of unexplained or recurrent spontaneous Oral contraceptives or hormone replacement Sepsis (< 1 month) Serious lung disease, including pneumonia (< 1 month) Abnormal pulmonary function Acute myocardial infarction Congestive heart failure (< 1 month) History of inflammatory bowel disease Medical patient at bed rest Age 61-74 Arthroscopic surgery Major open surgery (> 45 min) Laparoscopic surgery (> 45 min) Malignancy Confined to bed (> 72 hours) Immobilizing plaster cast Central venous access Age >= 75 History of VTE Family history of VTE Factor V Leiden Prothrombin [id number] Lupus anticoagulant Anticardiolipin antibodies Elevated serum homocysteine Heparin-induced thrombocytopenia Other congenital or acquired thrombophilia Stroke (< 1 month) Elective arthroplasty Hip, pelvis, or leg fracture Acute spinal cord injury (< 1 month) Prophylaxis Regimen: Total Risk Factor Score Risk Level Prophylaxis Regimen 0-1 Low Early ambulation 2 Moderate Order ONE of the following: *Sequential Compression Device (SCD) *Heparin 5000 units SQ BID 3-4 Higher Order ONE of the following medications: *Heparin 5000 units SQ TID *Enoxaparin/Lovenox 40 mg SQ daily (WT < 150 kg, CrCl > 30 mL/min) *Enoxaparin/Lovenox 30 mg SQ daily (WT < 150 kg, CrCl > 10-29 mL/min) *Enoxaparin/Lovenox 30 mg SQ BID (WT < 150 kg, CrCl > 30 mL/min) AND/OR *Sequential Compression Device (SCD) 5 or more Highest Order ONE of the following medications: *Heparin 5000 units SQ TID (Preferred with Epidurals) *Enoxaparin/Lovenox 40 mg SQ daily (WT < 150 kg, CrCl > 30 mL/min) *Enoxaparin/Lovenox 30 mg SQ daily (WT < 150 kg, CrCl > 10-29 mL/min) *Enoxaparin/Lovenox 30 mg SQ BID (WT < 150 kg, CrCl > 30 mL/min) AND *Sequential Compression Device (SCD) Assessment and Plan - Plan Assessment/plan: 1. Hyperkalemia/end-stage renal disease on dialysis Initial potassium 7.3, status post insulin in the emergency department Nephrology consulted, patient will be urgently dialyzed in the ICU this evening Patient's regional telecommunications specialist is Dr. Borden, appreciate Nephrology recommendations 2. Left upper extremity swelling/erythema Chronic Patient without leukocytosis or fevers Monitor clinically 3. History of PE/DVT Continue Coumadin INR pending Pharmacy consulted to assist with Coumadin dosing 4. Ileostomy with increased output Strict I&O's Monitor 5. Hypertension Continue home medications FEN Renal diet Electrolytes: As above, reevaluate status post dialysis Coumadin
[2018-02-13 02:26] LABS: INR 1.1 Ratio; Prothrombin Time 11.6 sec (9.8-11.6)
[2018-02-13] MEDS ORDERED: Heparin - SQ 10,000 UNITS/ML Vial SQ SCH (06:00)
[2018-02-13 07:40] LABS: Albumin 2.9 g/dL (3.4-5.0); Calcium 8.9 mg/dL (8.5-10.1); Carbon Dioxide 24.7 meq/L (21.0-32.0); Potassium 3.8 meq/L (3.5-5.1)
--- NOTE | 2018-02-13 08:46 | P.PN ---
Subjective Interval history: This is a pleasant 77 y/o Female with Hypertension, Perforated Diverticulitis status post Colectomy with and Ileostomy ESRD on Hemodialysis, /Saturday, status post fistula placement on 01/01/[address] Ventura and history of PE/DVT on Coumadin presents to the emergency department with a myriad of complaints. She reports pain and swelling in the left upper extremity that has been present since her fistula placement. Her fistula has not been accessed. She is dialyzed through a PermCath. She went to dialysis today however was sent from dialysis to the emergency department for evaluation of abdominal pain and nausea with high ostomy output. On arrival to the emergency department the patient was found to be hyperkalemic with a potassium of 7.3. The patient denies any chest pain or shortness of breath. No fevers/chills. No lateralizing signs/symptoms. seen i intensive care unit, stable continue management, Nephrology specialist following Doctor Ventura was consulted on multiple opportunities and said the AV fistula on left arm can be cannulated and that will help to improve the edema at this time having Hemodialysis in her room, tech present. no nausea, vomit or diarrhea. Physical Exam Vital signs: Vital Signs 02/12/18 16:50 02/12/18 19:24 02/12/18 20:25 Temperature 98.6 F Pulse Rate 98 H 88 67 Respiratory Rate 17 17 20 Blood Pressure 103/59 L 123/59 L 127/60 Pulse Oximetry 95 99 98 02/13/18 00:02 02/13/18 03:33 02/13/18 05:00 Temperature 97.7 F Pulse Rate 90 110 H 113 H Respiratory Rate 19 15 14 Blood Pressure 148/66 H 115/54 L 91/54 L Pulse Oximetry 98 99 96 02/13/18 07:46 Temperature Pulse Rate Respiratory Rate Blood Pressure Pulse Oximetry 98 Intake & Output 02/12/18 02/13/18 02/13/18 18:59 06:59 18:59 Intake Total 30 / 30 Output Total 1150 / 1150 Balance -1120 / -1120 Weight 51.256 kg 49 kg Intake: Oral 30 / 30 Output: Urine 0 / 0 Hemodialysis Amount 1000 / 1000 Stool Amount (Stoma) 150 / 150 Right Upper Abdomen 150 / 150 Other: Date of Last Bowel Movement 02/13/18 Weight On Admission 50.1 kg Narrative: Gen.: No acute distress Head: Normocephalic. Atraumatic. EENT: Pupils equal round and reactive to light. Nose without drainage. Airway intact. Throat without injection. Cardiovascular: Regular rate and rhythm. No murmurs, rubs or gallops. Respiratory: Lungs clear to auscultation bilaterally. No wheezes or rhonchi. Abdomen: Soft, nontender, nondistended. No peritoneal signs. Musculoskeletal: No gross deformities. No edema. Skin: Edema of the left upper extremity with some surrounding erythema. No induration or fluctuance. Neuro: Sensory and motor grossly intact. Cranial nerves II through XII grossly intact. Results - Labs CBC & Chem 7: 02/12/18 19:40 02/13/18 06:31 Laboratory Results - last 24 hr 02/12/18 02/12/18 02/12/18 19:40 19:40 22:48 WBC 9.7 RBC 3.74 L Hgb 12.4 Hct 38.3 MCV 102.5 H MCH 33.3 MCHC 32.5 RDW 18.2 H Plt Count 133 L MPV 8.2 Neut % (Auto) 64.8 Lymph % (Auto) 24.1 Gila % (Auto) 9.7 H Eos % (Auto) 0.9 Baso % (Auto) 0.5 Neut # (Auto) 6.3 Lymph # (Auto) 2.3 Gila # (Auto) 0.9 Eos # (Auto) 0.1 Baso # (Auto) 0.0 WBC Differential . Differential Comment Auto diff final PT INR Sodium 126 L Potassium 7.3 H* 6.5 H D Chloride 99 Carbon Dioxide 14.7 L Anion Gap 12 BUN 74 H Creatinine 8.74 H Estimated GFR 4 L Random Glucose 78 Calcium 9.4 Phosphorus 6.5 H Magnesium 2.1 Total Bilirubin 0.3 AST 25 ALT 19 Alkaline Phosphatase 219 H Total Protein 9.5 H D Albumin 3.3 L Nasal Screen MRSA (PCR) 02/13/18 02/13/18 02/13/18 01:58 04:15 06:31 WBC RBC Hgb Hct MCV MCH MCHC RDW Plt Count MPV Neut % (Auto) Lymph % (Auto) Gila % (Auto) Eos % (Auto) Baso % (Auto) Neut # (Auto) Lymph # (Auto) Gila # (Auto) Eos # (Auto) Baso # (Auto) WBC Differential Differential Comment PT 11.6 INR 1.1 Sodium 135 L Potassium 3.8 D Chloride 97 L Carbon Dioxide 24.7 D Anion Gap 13 BUN 29 H Creatinine 4.53 H Estimated GFR 9 L Random Glucose 99 Calcium 8.9 Phosphorus 4.0 D Magnesium Total Bilirubin AST ALT Alkaline Phosphatase Total Protein Albumin 2.9 L Nasal Screen MRSA (PCR) Not detected - Imaging Impressions Abdomen/Pelvis CT 02/12/18 19:26 CONCLUSION: 1. Interval resolution of gas within the presacral soft tissue density. 2. No dilated loops of small or large bowel. 3. Stable 2 mm nonobstructing left renal stone. Chest X-Ray 02/12/18 19:26 CONCLUSION: The lungs are clear. Assessment and Plan - Plan 1. Hyperkalemia/end-stage renal disease on dialysis Initial potassium 7.3, status post insulin in the emergency department Nephrology consulted, patient will be urgently dialyzed in the ICU this evening Patient's director shopper marketing is Dr. Borden, appreciate Nephrology recommendations continue management by Nephrology specialist, will leave decision about the left arm AV fistula to Nephrology specialist We consulted on multiple opportunities Doctor Lorenzo and said that the left AV fistula can be cannulated and also recommended to do it if not possible to continue using the PermCath. 2. Left upper extremity swelling erythema improving. Chronic Patient without leukocytosis or fevers Monitor clinically 3. History of PE/DVT Continue Coumadin INR low continue management by pharmacy. Pharmacy consulted to assist with Coumadin dosing 4. Ileostomy following output. 5. Hypertension controlled. Continue present care Code Status: Full Code. Discussed Condition With: Patient and Hemodialysis Tech Discharge Planning: Once cleared by Nephrology for discharge.
--- NOTE | 2018-02-13 13:27 | ECG ---
Date Performed: 02/12/2018 Time Performed: 20:31:25 PTAGE: 77 years EKG: Sinus rhythm NORMAL ECG PREVIOUS TRACING : 01/23/2018 10.15 Since the previous tracing, no significant change noted DOCTOR: Marcos Pérez Interpretating Date/Time 02/13/2018 13:25:57
--- NOTE | 2018-02-13 17:17 | P.CONNP ---
History of Present Illness Service: Nephrology Consult date: 02/12/18 Requesting Physician: Fauzia Kellogg Reason for Consult: ESRD on HD, Hyperkalemia Primary Care Provider: Amol Chong MD Chief Complaint: Abdominal pain History of Present Illness: The patient is a 77 yo [place] female who presented to the emergency department 02/12 after she was referred to the hospital from her dialysis unit for severe abdominal pain. Uncertain when her last outpatient treatment was as the patient is unreliable reporting different stories to different staff members. She was emergently dialyzed last night for a K+ of 7.3 and again this AM as K+ remained elevated at 6.5 post-HD. Most recent K+ at 3.5. She is no longer in pain. Continuous high output from her ostomy. PMFSH - History History Provided By: Patient, Medical Record - Medical History Medical History: Medical History (Last Reviewed 02/13/18 @ 01:08 by Luis Alfredo Gonsalves DO) Absent parathyroid gland Anemia DVT (deep venous thrombosis) Diverticulitis of colon with perforation End stage renal disease on dialysis History of blood product transfusion Hx of hysterectomy Hypertension Pulmonary embolism Vascular dialysis catheter in place - Surgical History Surgical History: Surgical History (Last Reviewed 02/13/18 @ 01:08 by Luis Alfredo Gonsalves DO) Hx of colostomy Hx of ileostomy - Family History Family History: Family History (Last Reviewed 02/13/18 @ 01:08 by Luis Alfredo Gonsalves DO) Son Kidney disease Daughter Kidney disease - Tobacco History Second Hand Smoke Exposure: Yes Tobacco Use In Past 30 Days: No Smoking Status: Never smoker - Alcohol History How Often Do You Have a Drink Containing Alcohol: Never - Substance Use History Substance History: No History of Abuse - Travel History Recent Travel in the [place] Within the Last 8 Weeks: No Recent Travel Out of the Country Within the Last 8 Weeks: No - Immunization History Tetanus Immunization: >5 Years Hx Influenza Vaccine This Season: Yes Medications and Allergies Active Medications: Active Medications Acetaminophen (Tylenol) 650 mg PO Q4H PRN PRN Reason: Temp > 100.4 Hydrocodone Bitart/Acetaminophen ([place] 5/325) 1 tab PO Q4H PRN PRN Reason: PAIN SCALE 6 TO 10 Last Admin: 02/13/18 11:52 Dose: 1 tab Bisacodyl (Dulcolax Supp) 10 mg RECTAL DAILY PRN PRN Reason: SEVERE CONSITIPATION Clonidine HCl (Catapres) 0.1 mg PO UNSCH PRN PRN Reason: SEE LABEL COMMENTS Diphenhydramine HCl (Benadryl) 25 mg PO UNSCH PRN PRN Reason: SEE LABEL COMMENTS Gelatin (Gelfoam 12 Mm/7 Mm Topical) 1 foam TOPICAL PRN PRN PRN Reason: help stop bleeding from site Gentamicin Sulfate (Gentamicin Inj) 20 mg OTHER WITH DIALYSIS PRN PRN Reason: Dwell Gentamycin Lock Last Admin: 02/13/18 09:49 Dose: 20 mg Heparin Sodium (Porcine) (Heparin Inj) 8,000 units OTHER WITH DIALYSIS PRN PRN Reason: for machine prime Heparin Sodium (Porcine) (Heparin Inj) 1,000 units OTHER WITH DIALYSIS PRN PRN Reason: Dwell Heparin to Fill Catheter Last Admin: 02/13/18 09:49 Dose: 1,000 units Sodium Chloride (Ns Inj) 1,000 mls @ 0 mls/hr OTHER .Q0M PRN PRN Reason: for prime and rinse back Sodium Chloride (Ns Inj) 1,000 mls @ 200 mls/hr OTHER .Q5H PRN PRN Reason: for dialyzer flush PRN Albumin Human (Flexbumin 25% Inj) 100 mls @ 60 mls/hr IV.SIG WITH DIALYSIS PRN PRN Reason: hypotension / volume replace Sodium Chloride (Ns Inj) 1,000 mls @ 0 mls/hr IV.CONT .Q0M PRN PRN Reason: hypotension / volume replace Metoprolol Succinate (Toprol Xl) 50 mg PO DAILY [facility] Last Admin: 02/13/18 10:41 Dose: 50 mg Nitroglycerin (Nitrostat Sl) 0.4 mg SL Q5M PRN PRN Reason: CHEST PAIN Ondansetron HCl (Zofran Inj) 4 mg IV.PUSH UNSCH PRN PRN Reason: NAUSEA OR VOMITING Pantoprazole Sodium (Protonix) 40 mg PO DAILY [facility] Last Admin: 02/13/18 11:52 Dose: 40 mg Pharmacy Profile Note (Coumadin Consult Pharmacy) 1 each OTHER UNSCH PRN PRN Reason: PHARMACY DOCUMENTATION Sennosides (Senokot) 17.2 mg PO Q12H PRN PRN Reason: Moderate Constipation Sodium Chloride (Ns Flush) 5 ml IV.FLUSH PRN PRN PRN Reason: flush each lumen during HD Temazepam (Restoril) 15 mg PO HS PRN PRN Reason: INSOMNIA Warfarin Sodium (Coumadin) 3 mg PO DAILY@1600 [place] Last Admin: 02/13/18 16:46 Dose: 3 mg Allergies Allergy/AdvReac Type Severity Reaction Status Date / Time Sulfa (Sulfonamide Allergy Swelling Verified 02/05/18 05:53 Antibiotics) Home Medications Medication Instructions Recorded Confirmed Type ondansetron HCl [Zofran] 8 mg PO TID PRN 01/10/18 02/12/18 History tramadol 50 mg PO Q6H 01/10/18 02/12/18 History metoprolol succinate 50 mg PO DAILY 02/05/18 02/12/18 History loperamide [Imodium A-D] 2 mg PO BID 02/08/18 02/12/18 History Exam Vital signs: Vital Signs 02/12/18 19:24 02/12/18 20:25 02/13/18 00:02 Temperature Pulse Rate 88 67 90 Respiratory Rate 17 20 19 Blood Pressure 123/59 L 127/60 148/66 H Pulse Oximetry 99 98 98 02/13/18 03:33 02/13/18 05:00 02/13/18 07:46 Temperature 97.7 F Pulse Rate 110 H 113 H Respiratory Rate 15 14 Blood Pressure 115/54 L 91/54 L Pulse Oximetry 99 96 98 02/13/18 08:00 02/13/18 10:00 02/13/18 12:00 Temperature 97.8 F 97.6 F Pulse Rate 108 H 119 H 100 H Respiratory Rate 14 24 Blood Pressure 104/57 L 141/62 H Pulse Oximetry 97 97 02/13/18 14:00 02/13/18 14:19 02/13/18 16:00 Temperature 97.9 F Pulse Rate 110 H 106 H Respiratory Rate 7 L 26 H Blood Pressure 107/62 Pulse Oximetry 97 Intake & Output 02/12/18 02/13/18 02/13/18 18:59 06:59 18:59 Intake Total 30 / 30 Output Total 1150 / 1150 500 / 500 Balance -1120 / -1120 -500 / -500 Weight 51.256 kg 49 kg Intake: Oral 30 / 30 Output: Urine 0 / 0 Hemodialysis Amount 1000 / 1000 500 / 500 Stool Amount (Stoma) 150 / 150 Right Upper Abdomen 150 / 150 Other: Date of Last Bowel Movement 02/13/18 02/13/18 Weight On Admission 50.1 kg - Constitutional no acute distress - Routine HEENT Exam Head: Present: normocephalic, atraumatic - Routine Neck Exam Present: supple - Routine Respiratory Exam Present: CTA bilaterally - Routine Cardiovascular Exam Present: S1, S2, tachycardia - Routine Abdominal Exam Present: soft, ostomy - Routine Extremities Exam Present: vascular access ([facility] PermCath. LUE AVG. Not warm, not tender, not painful to palpation.). Absent: edema - Routine Skin Exam Present: intact - Routine Neurological Exam Present: alert, oriented X3 Results - Lab Results 02/12/18 19:40 02/13/18 06:31 Most recent lab results Calcium 8.9 mg/dL (8.5-10.1) 02/13/18 06:31 Phosphorus 4.0 mg/dL (2.5-4.9) D 02/13/18 06:31 Magnesium 2.1 mg/dL (1.5-2.5) 02/12/18 19:40 Assessment and Plan - Assessment (1) ESRD on dialysis Code(s): N18.6 - End stage renal disease; Z99.2 - Dependence on renal dialysis Status: Chronic Plan: Apparent non-compliance with her outpatient hemodialysis. Received emergent HD 02/12 and again this AM to keep on TTS schedule. To continue to utilize [facility] PermCath. Recommend f/u as outpatient with Dr. Ventura regarding AVG. Continue HD TTS schedule. Medications should be adjusted for the patient's ESRD. Avoid gadolinium. (2) Hyperkalemia Code(s): E87.5 - Hyperkalemia Status: Acute Plan: Resolved with HD Low K+ diet. Discussed compliance with HD.
--- NOTE | 2018-02-14 08:54 | P.PN ---
Subjective Interval history: This is a pleasant 77 y/o Female with Hypertension, Perforated Diverticulitis status post Colectomy with and Ileostomy ESRD on Hemodialysis, /Saturday, status post fistula placement on 01/01/[address] Ventura and history of PE/DVT on Coumadin presents to the emergency department with a myriad of complaints. She reports pain and swelling in the left upper extremity that has been present since her fistula placement. Her fistula has not been accessed. She is dialyzed through a PermCath. She went to dialysis today however was sent from dialysis to the emergency department for evaluation of abdominal pain and nausea with high ostomy output. On arrival to the emergency department the patient was found to be hyperkalemic with a potassium of 7.3. The patient denies any chest pain or shortness of breath. No fevers/chills. No lateralizing signs/symptoms. seen i intensive care unit, stable continue management, Nephrology specialist following Doctor Ventura was consulted on multiple opportunities and said the AV fistula on left arm can be cannulated and that will help to improve the edema at this time having Hemodialysis in her room, tech present. 02/14: Patient seen in Intensive Care Unit now improved her condition from admission she may come back to her home as per Nephrology specialist okay to discharge and follow with her Primary Hemodialysis center, no nausea, vomit or diarrhea Physical Exam Vital signs: Vital Signs 02/13/18 10:00 02/13/18 12:00 02/13/18 14:00 Temperature 97.6 F Pulse Rate 119 H 100 H 110 H Respiratory Rate 24 Blood Pressure 141/62 H Pulse Oximetry 97 02/13/18 14:19 02/13/18 16:00 02/13/18 18:00 Temperature 97.9 F Pulse Rate 106 H 103 H Respiratory Rate 7 L 26 H Blood Pressure 107/62 Pulse Oximetry 97 02/13/18 20:00 02/13/18 21:20 02/13/18 22:37 Temperature 98.3 F Pulse Rate 99 H Respiratory Rate 16 19 Blood Pressure 122/53 L Pulse Oximetry 98 98 02/14/18 00:00 02/14/18 04:00 02/14/18 04:58 Temperature 98.1 F 97.5 F L Pulse Rate 97 H 81 Respiratory Rate 19 24 17 Blood Pressure 108/58 L 112/53 L Pulse Oximetry 98 96 Intake & Output 08/23/18 08/24/18 08/24/18 18:59 06:59 18:59 Intake Total 850 / 850 Output Total 500 / 500 1500 / 1500 Balance -500 / -500 -650 / -650 Weight 53.8 kg Intake: Oral 850 / 850 Output: Urine 0 / 0 Hemodialysis Amount 500 / 500 Stool Amount (Stoma) 1500 / 1500 Right Upper Abdomen 1500 / 1500 Other: Date of Last Bowel Movement 02/13/18 02/13/18 Narrative: Gen.: No acute distress Head: Normocephalic. Atraumatic. EENT: Pupils equal round and reactive to light. Nose without drainage. Airway intact. Throat without injection. Cardiovascular: Regular rate and rhythm. No murmurs, rubs or gallops. Respiratory: Lungs clear to auscultation bilaterally. No wheezes or rhonchi. Abdomen: Soft, nontender, nondistended. No peritoneal signs. Musculoskeletal: No gross deformities. No edema. Skin: Edema of the left upper extremity with some surrounding erythema. No induration or fluctuance. Neuro: Sensory and motor grossly intact. Cranial nerves II through XII grossly intact. Results - Labs CBC & Chem 7: 02/12/18 19:40 02/13/18 06:31 Laboratory Results - last 24 hr 02/13/18 10:45 POC Glucose 97 Assessment and Plan - Plan 1. Hyperkalemia/end-stage renal disease on dialysis Initial potassium 7.3, status post insulin in the emergency department Nephrology consulted, patient will be urgently dialyzed in the ICU this evening Patient's metal roaster is Dr. Borden, appreciate Nephrology recommendations continue management by Nephrology specialist, will leave decision about the left arm AV fistula to Nephrology specialist We consulted on multiple opportunities Doctor Ventura and said that the left AV fistula can be cannulated and also recommended to do it if not possible to continue using the PermCath. 2. Left upper extremity swelling erythema improving. Chronic Patient without leukocytosis or fevers Monitor clinically 3. History of PE/DVT Continue Coumadin INR low continue management by pharmacy. Pharmacy consulted to assist with Coumadin dosing 4. Ileostomy following output. 5. Hypertension controlled. Discharge Home now. Code Status: Full code. Discussed Condition With: Patient and Nurse Miss Gary Discharge Planning: Once cleared by Nephrology for discharge.
[2018-02-14 09:03] VITALS: RESP 18
--- NOTE | 2018-02-14 10:09 | P.DCO ---
- Diagnosis (2) Hypertension (8) DVT (deep venous thrombosis) - Physical Therapy Order: Evaluate and treat, Improve ambulation, Strength and gait training - Home Health Nursing Order: Medical education, Signs/symptoms of disease process, Medication education-adverse effect, Nursing assessment with vital signs Instructions: Follow PT and INR with goal of INR 2 to 3 hold Warfarin if INR in 3 or over. - Certification I have seen patient Leidy Hare on 02/14/18. My clinical findings support the need for the requested home health care services because: Limited mobility due to disease progression I certify that my clinical findings support that this patient is homebound because: Unsafe to leave home unassisted (2) Hypertension Qualifiers: Hypertension type: renovascular hypertension Qualified Code(s): I15.0 - Renovascular hypertension (8) DVT (deep venous thrombosis) Qualifiers: DVT location: lower extremity
--- NOTE | 2018-02-14 11:22 | P.PNNP ---
Subjective Interval history: The patient is a 77 yo [place] female who presented to the emergency department 02/12 after she was referred to the hospital from her dialysis unit for severe abdominal pain. Uncertain when her last outpatient treatment was as the patient is unreliable reporting different stories to different staff members. She was emergently dialyzed last night for a K+ of 7.3 and again this AM as K+ remained elevated at 6.5 post-HD. Most recent K+ at 3.5. She is no longer in pain. Continuous high output from her ostomy. 02/14/18 Pt laying comfortably in bed. No further abdominal pain. s/p HD x2 days in a row. Next HD scheduled 02/15/18 as outpatient in [place]. Physical Exam Vital signs: Vital Signs 02/13/18 12:00 02/13/18 14:00 02/13/18 14:19 Temperature 97.6 F Pulse Rate 100 H 110 H Respiratory Rate 24 7 L Blood Pressure 141/62 H Pulse Oximetry 97 02/13/18 16:00 02/13/18 18:00 02/13/18 20:00 Temperature 97.9 F 98.3 F Pulse Rate 106 H 103 H 99 H Respiratory Rate 26 H 16 Blood Pressure 107/62 122/53 L Pulse Oximetry 97 98 02/13/18 21:20 02/13/18 22:37 02/14/18 00:00 Temperature 98.1 F Pulse Rate 97 H Respiratory Rate 19 19 Blood Pressure 108/58 L Pulse Oximetry 98 98 02/14/18 04:00 02/14/18 04:58 02/14/18 08:00 Temperature 97.5 F L 98.1 F Pulse Rate 81 89 Respiratory Rate 24 17 18 Blood Pressure 112/53 L 131/60 Pulse Oximetry 96 97 Intake & Output 02/13/18 02/14/18 02/14/18 18:59 06:59 18:59 Intake Total 850 / 850 Output Total 500 / 500 1500 / 1500 Balance -500 / -500 -650 / -650 Weight 53.8 kg Intake: Oral 850 / 850 Output: Urine 0 / 0 Hemodialysis Amount 500 / 500 Stool Amount (Stoma) 1500 / 1500 Right Upper Abdomen 1500 / 1500 Other: Date of Last Bowel Movement 02/13/18 02/13/18 02/13/18 - Constitutional no acute distress - Routine HEENT Exam Head: Present: normocephalic - Routine Neck Exam Present: supple - Routine Respiratory Exam Present: CTA bilaterally - Routine Cardiovascular Exam Present: RRR, S1, S2 - Routine Abdominal Exam Present: soft, ostomy - Routine Extremities Exam Present: vascular access ([facility] PermCath. LUE AVG. Edema noted with mild erythema. Thrill difficult to palpate. No tenderness.). Absent: edema - Routine Neurological Exam Present: alert, oriented X3 Assessment and Plan - Assessment (1) ESRD on dialysis Code(s): N18.6 - End stage renal disease; Z99.2 - Dependence on renal dialysis Status: Chronic Plan: Apparent non-compliance with her outpatient hemodialysis. Continue HD TTS schedule. Discussed with OSCAR Le from vascular surgery via telephone. Was seen in house 02/[address] Ventura and said everything OK from vascular standpoint. Did recommend moving PermCath to right side to casting operator helper with venous drainage. Was supposed to have f/u as outpatient, but patient canceled f/u appt per vascular. She has been rescheduled to see them 02/26/18 at 10:00am. I advised the patient of this appointment. Plans for discharge today. Advised the patient that she should go to her regular outpatient dialysis unit in [place] in the AM. Noncompliance with dialysis treatment life threatening especially given her critical hyperkalemia on admission. They will likely have to utilize [facility] PermCath until she has f/u with vascular. Medications should be adjusted for the patient's ESRD. Avoid gadolinium. (2) Hyperkalemia Code(s): E87.5 - Hyperkalemia Status: Acute Plan: Resolved with HD Low K+ diet. Discussed compliance with HD.
[2018-02-14 12:19] VITALS: BP 102/55; PULSE 98; TEMP 98.3; O2SAT 97
--- NOTE | 2018-02-14 13:12 | P.DS ---
Date of admission: 02/12/18 23:27 Primary care physician: Amol Chong MD Attending physician on discharge: Stephane Woodard Anticipated date of discharge: 02/14/18 Brief History from admission: 77-year-old female with past medical history significant for hypertension, perforated diverticulitis status post colectomy with end ileostomy, end-stage renal disease on hemodialysis Saturday//Saturday, status post fistula placement on 01/01/[address] Ventura and history of PE/DVT on Coumadin presents to the emergency department with a myriad of complaints. She reports pain and swelling in the left upper extremity that has been present since her fistula placement. Her fistula has not been accessed. She is dialyzed through a PermCath. She went to dialysis today however was sent from dialysis to the emergency department for evaluation of abdominal pain and nausea with high ostomy output. On arrival to the emergency department the patient was found to be hyperkalemic with a potassium of 7.3. The patient denies any chest pain or shortness of breath. No fevers/chills. No lateralizing signs/symptoms. DS: Diagnosis - Discharge Diagnosis (1) ESRD on dialysis Status: Chronic (2) Hypertension Status: Chronic (3) Hypercalcemia Status: Acute (4) AVF (arteriovenous fistula) Status: Acute (5) Hypotension Status: Acute (6) Hypoglycemia Status: Acute (7) Sepsis Status: Acute (8) DVT (deep venous thrombosis) Status: Chronic DS: Summary Hospital Course: This is a pleasant 77 y/o Female with Hypertension, Perforated Diverticulitis status post Colectomy with and Ileostomy ESRD on Hemodialysis, , status post fistula placement on 01/01/[address] Ventura and history of PE/DVT on Coumadin presents to the emergency department with a myriad of complaints. She reports pain and swelling in the left upper extremity that has been present since her fistula placement. Her fistula has not been accessed. She is dialyzed through a PermCath. She went to dialysis today however was sent from dialysis to the emergency department for evaluation of abdominal pain and nausea with high ostomy output. On arrival to the emergency department the patient was found to be hyperkalemic with a potassium of 7.3. The patient denies any chest pain or shortness of breath. No fevers/chills. No lateralizing signs/symptoms. seen i intensive care unit, stable continue management, Nephrology specialist following Doctor Ventura was consulted on multiple opportunities and said the AV fistula on left arm can be cannulated and that will help to improve the edema at this time having Hemodialysis in her room, tech present. 02/14: Patient seen in Intensive Care Unit now improved her condition from admission she may come back to her home as per Nephrology specialist okay to discharge and follow with her Primary Hemodialysis center, no nausea, vomit or diarrhea Assessment and Plan - Plan 1. Hyperkalemia/end-stage renal disease on dialysis Initial potassium 7.3, status post insulin in the emergency department Nephrology consulted, patient will be urgently dialyzed in the ICU this evening Patient's rag inspector is Dr. Borden, appreciate Nephrology recommendations continue management by Nephrology specialist, will leave decision about the left arm AV fistula to Nephrology specialist We consulted on multiple opportunities Doctor Ventura and said that the left AV fistula can be cannulated and also recommended to do it if not possible to continue using the PermCath. 2. Left upper extremity swelling erythema improving. Chronic Patient without leukocytosis or fevers Monitor clinically 3. History of PE/DVT Continue Coumadin INR low continue management by pharmacy. Pharmacy consulted to assist with Coumadin dosing 4. Ileostomy following output. 5. Hypertension controlled. Discharge Home now. Code Status: Full code. Discussed Condition With: Patient and Nurse Miss Gary Discharge Planning: Once cleared by Nephrology for discharge. - Time Spent with Patient Total time spent providing and/or coordinating discharge services: Less than 30 minutes - Quality: VTE Deep Vein Thrombosis/Pulmonary Embolism Present on Admission: No Exam Vital signs: Vital Signs 02/13/18 14:00 02/13/18 14:19 02/13/18 16:00 Temperature 97.9 F Pulse Rate 110 H 106 H Respiratory Rate 7 L 26 H Blood Pressure 107/62 Pulse Oximetry 97 02/13/18 18:00 02/13/18 20:00 02/13/18 21:20 Temperature 98.3 F Pulse Rate 103 H 99 H Respiratory Rate 16 Blood Pressure 122/53 L Pulse Oximetry 98 98 02/13/18 22:37 02/14/18 00:00 02/14/18 04:00 Temperature 98.1 F 97.5 F L Pulse Rate 97 H 81 Respiratory Rate 19 19 24 Blood Pressure 108/58 L 112/53 L Pulse Oximetry 98 96 02/14/18 04:58 02/14/18 08:00 02/14/18 11:23 Temperature 98.1 F Pulse Rate 89 Respiratory Rate 17 18 Blood Pressure 131/60 Pulse Oximetry 97 98 02/14/18 12:00 Temperature 98.3 F Pulse Rate 98 H Respiratory Rate 18 Blood Pressure 102/55 L Pulse Oximetry 97 Intake & Output 02/13/18 02/14/18 02/14/18 18:59 06:59 18:59 Intake Total 850 / 850 Output Total 500 / 500 1500 / 1500 Balance -500 / -500 -650 / -650 Weight 53.8 kg Intake: Oral 850 / 850 Output: Urine 0 / 0 Hemodialysis Amount 500 / 500 Stool Amount (Stoma) 1500 / 1500 Right Upper Abdomen 1500 / 1500 Other: Date of Last Bowel Movement 02/13/18 02/13/18 02/13/18 Narrative: Gen.: No acute distress Head: Normocephalic. Atraumatic. EENT: Pupils equal round and reactive to light. Nose without drainage. Airway intact. Throat without injection. Cardiovascular: Regular rate and rhythm. No murmurs, rubs or gallops. Respiratory: Lungs clear to auscultation bilaterally. No wheezes or rhonchi. Abdomen: Soft, nontender, nondistended. No peritoneal signs. Musculoskeletal: No gross deformities. No edema. Skin: Edema of the left upper extremity with some surrounding erythema. No induration or fluctuance. Neuro: Sensory and motor grossly intact. Cranial nerves II through XII grossly intact. Results Procedures completed during hospitalization: Hemodialysis - Impressions ITS Impressions Abdomen/Pelvis CT 02/12/18 19:26 CONCLUSION: 1. Interval resolution of gas within the presacral soft tissue density. 2. No dilated loops of small or large bowel. 3. Stable 2 mm nonobstructing left renal stone. Chest X-Ray 02/12/18 19:26 CONCLUSION: The lungs are clear. Discharge Plan - Discharge Disposition Patient Disposition: W/Home Health Service - Discharge Condition Condition: Stable - Discharge Order Discharge Orders: Discharge Order (Routine); Ordered 02/14/18 Ordered By: Stephane Woodard - Discharge Details Anticipated Discharge Date: 02/14/18 Discharge Comment: Follow up tomorrow with Nephrology specialist for Hemodialysis - Physicians Team Primary Care Provider: Amol Chong Attending Provider: Stephane Woodard Other Providers: Kristin Foster ; Tosha Umanzor MD
== END 2018-02-14 13:50 | disposition home health service (06) ==
LOC: NEPC 16:39 → NEDA 23:27 → HIMC 02-13 04:10
PROVIDERS: ADMIT Internal Medicine; ATTEND Internal Medicine

== ENCOUNTER 2018-04-30 06:00 | Observation (INO) ==
[2018-04-30] MEDS ORDERED: Protamine Sulfate Inj 50 MG/5 ML Vial ONE (06:26)
[2018-04-30] MEDS ORDERED: Heparin 10,000 UNITS/10 ML Vial (for IV use) ONE (06:26)
[2018-04-30] MEDS ORDERED: Heparin/NS PF Inj 500 ML ONE (06:26)
[2018-04-30] MEDS ORDERED: Bupivacaine 0.5% Inj 50 ML MDV Vial ONE (06:26)
--- NOTE | 2018-04-30 06:52 | XR ---
EXAM DATE: 04/30/2018 6:45 AM EST AGE/SEX: 77 years / Female INDICATIONS: Evaluate for pneumonia,pneumothorax, and communicable disease. CLINICAL DATA: This is the patient's initial encounter. Patient reports that signs and symptoms have been present for 1 day and indicates a pain score of 0/10. MEDICAL/SURGICAL HISTORY: Renal disease. . Ileostomy Vas catheter placement COMPARISON: [facility], CHEST 1V SINGLE AP, 02/12/2018. . FINDINGS: Left IJ tunneled dialysis catheter in place. No new focal pleural or parenchymal opacities. The cardi omediastinal contours are unremarkable. Osseous structures are intact. CONCLUSION: 1. No acute abnormality or significant interval change. Electronically signed by: Kailash Edmondson MD 04/30/2018 6:51 AM EST
[2018-04-30] MEDS ORDERED: Sodium Chlor 0.9% Inj 500 ML IV.CONT ONE (07:00)
[2018-04-30] MEDS ORDERED: Metoprolol Tartrate 25 MG Tablet PO ONE (07:00)
[2018-04-30] MEDS ORDERED: Chlorhexidine Gluconate 2% 1 Pack (2 Cloths) TOPICAL ONE (07:00)
--- NOTE | 2018-04-30 07:14 | P.HPVS ---
History of Present Illness Chief Complaint: L UE access not functional History of Present Illness: 77 yo female with ESRD currently on HD TTS via L chest catheter. On January 01, she underwent L ax-ax loop AVG. Not yet used. Has swelling at elbow (counter incision) and axilla. No pseudoaneursym by duplex. Presents for access revision, potentially hematoma evacuation only. No changes in overall health except R posterior calf wound that she said started as snake bite. No F/C Full run of HD yesterday. - Inpatient Certification If this patient has been admitted as an Inpatient: I certify that the inpatient services were ordered in accordance with Medicare regulations governing the order. This includes certification that hospital inpatient services are reasonable and necessary and in the case of services not specified as inpatient-only under 42 CFR 419.22(n), that they are appropriately provided as inpatient services in accordance to with the 2-midnight benchmark under 43 CFR 412.3(e) Estimated Total Length of Stay (Days): 1 Plans for Post Hospital Care: Home Review of Systems Constitutional: Denies chills, Denies fever(s) PMFSH - History History Provided By: Patient, Medical Record - Medical History Medical History: Medical History (Last Reviewed 04/30/18 @ 07:12 by Robles Ventura MD) Absent parathyroid gland Anemia DVT (deep venous thrombosis) Diverticulitis of colon with perforation End stage renal disease on dialysis History of blood product transfusion Hx of hysterectomy Hypertension Pulmonary embolism Vascular dialysis catheter in place - Surgical History Surgical History: Surgical History (Last Reviewed 04/30/18 @ 07:12 by Robles Ventura MD) History of arteriovenous graft Hx of colostomy Hx of ileostomy - Family History Family History: Family History (Last Reviewed 03/06/18 @ 14:03 by Linda Harper MD) Son Kidney disease Daughter Kidney disease - Tobacco History Second Hand Smoke Exposure: No Tobacco Use In Past 30 Days: No Smoking Status: Never smoker - Alcohol History How Often Do You Have a Drink Containing Alcohol: Never - Substance Use History Substance History: No History of Abuse Medications and Allergies Active Medications: Active Medications Lactated Ringer's (Lr 1000 Ml Inj) 1,000 mls @ 30 mls/hr IV.CONT .Q24H ONE Stop: 05/01/18 06:59 Sodium Chloride (Ns Inj) 500 mls @ 30 mls/hr IV.CONT .[id number] ONE Stop: 04/30/18 23:39 Allergies Allergy/AdvReac Type Severity Reaction Status Date / Time Sulfa (Sulfonamide Allergy Swelling Verified 04/30/18 07:06 Antibiotics) Home Medications Medication Instructions Recorded Confirmed Type ondansetron HCl [Zofran] 8 mg PO TID PRN 01/10/18 04/30/18 History tramadol 50 mg PO Q6H 01/10/18 04/30/18 History metoprolol succinate 50 mg PO DAILY 02/05/18 04/30/18 History loperamide [Imodium A-D] 2 mg PO BID 02/08/18 04/30/18 History Physical Exam Neuro: alert, oriented, no distress HEENT: anicteric sclera Neck: no JVD Heart: reg rate Lungs: clear B Vascular: + L UE thrill palpable R DP Extremities: L UE antecubital and AC incisions with bulges. Skin intact. Impressions Chest X-Ray 04/30/18 00:00 CONCLUSION: 1. No acute abnormality or significant interval change. Caprini VTE Risk Assessment Caprini VTE Risk Assessment: No/Low Risk (score <= 1) (intraop heparin) Caprini Risk Assessment Model: Point Value = 1 Point Value = 2 Point Value = 3 Point Value = 5 Age 41-60 Minor surgery BMI > 25 kg/m2 Swollen legs Varicose veins or History of unexplained or recurrent spontaneous Oral contraceptives or hormone replacement Sepsis (< 1 month) Serious lung disease, including pneumonia (< 1 month) Abnormal pulmonary function Acute myocardial infarction Congestive heart failure (< 1 month) History of inflammatory bowel disease Medical patient at bed rest Age 61-74 Arthroscopic surgery Major open surgery (> 45 min) Laparoscopic surgery (> 45 min) Malignancy Confined to bed (> 72 hours) Immobilizing plaster cast Central venous access Age >= 75 History of VTE Family history of VTE Factor V Leiden Prothrombin [id number] Lupus anticoagulant Anticardiolipin antibodies Elevated serum homocysteine Heparin-induced thrombocytopenia Other congenital or acquired thrombophilia Stroke (< 1 month) Elective arthroplasty Hip, pelvis, or leg fracture Acute spinal cord injury (< 1 month) Prophylaxis Regimen: Total Risk Factor Score Risk Level Prophylaxis Regimen 0-1 Low Early ambulation 2 Moderate Order ONE of the following: *Sequential Compression Device (SCD) *Heparin 5000 units SQ BID 3-4 Higher Order ONE of the following medications: *Heparin 5000 units SQ TID *Enoxaparin/Lovenox 40 mg SQ daily (WT < 150 kg, CrCl > 30 mL/min) *Enoxaparin/Lovenox 30 mg SQ daily (WT < 150 kg, CrCl > 10-29 mL/min) *Enoxaparin/Lovenox 30 mg SQ BID (WT < 150 kg, CrCl > 30 mL/min) AND/OR *Sequential Compression Device (SCD) 5 or more Highest Order ONE of the following medications: *Heparin 5000 units SQ TID (Preferred with Epidurals) *Enoxaparin/Lovenox 40 mg SQ daily (WT < 150 kg, CrCl > 30 mL/min) *Enoxaparin/Lovenox 30 mg SQ daily (WT < 150 kg, CrCl > 10-29 mL/min) *Enoxaparin/Lovenox 30 mg SQ BID (WT < 150 kg, CrCl > 30 mL/min) AND *Sequential Compression Device (SCD) Assessment and Plan - Assessment (1) ESRD on dialysis Code(s): N18.6 - End stage renal disease; Z99.2 - Dependence on renal dialysis Status: Chronic (2) AVF (arteriovenous fistula) Code(s): I77.0 - Arteriovenous fistula, acquired Status: Acute - Plan LEFT upper extremity AVF revision Adm for obs post-op HD then home tomorrow (POD#1) Pt, her and her son all agree to proceed. To OR.
[2018-04-30 07:35] LABS: Baso # (Auto) 0.1 th/mm3 (0.0-0.2); Eos # (Auto) 0.1 th/mm3 (0.0-0.4); Eos % (Auto) 1.1 % (0.0-4.0); Hematocrit 36.5 % (35.0-46.0); Hemoglobin 12.3 gm/dL (11.6-15.3); Lymph # (Auto) 1.5 th/mm3 (1.0-4.8); Lymph % (Auto) 33.4 % (9.0-44.0); Mean Corpuscular HGB Conc 33.8 % (32.0-36.0); Mean Corpuscular Hemoglobin 32.2 pg (27.0-34.0); Mean Corpuscular Volume 95.3 fL (80.0-100.0); Mean Platelet Volume 7.6 fL (7.0-11.0); Mono # (Auto) 0.5 th/mm3 (0.0-0.9); Mono % (Auto) 10.9 % (0.0-8.0); Neut # (Auto) 2.3 th/mm3 (1.8-7.7); Neut % (Auto) 52.6 % (16.0-70.0); Platelet Count 135 th/mm3 (150-450); Red Blood Count 3.83 mil/mm3 (4.00-5.30); Red Cell Distribution Width 17.6 % (11.6-17.2); White Blood Count 4.4 th/mm3 (4.0-11.0)
[2018-04-30 07:41] LABS: Activated Partial Thrombo Time 27.4 sec (23.4-31.7); INR 1.1 Ratio; Prothrombin Time 11.1 sec (9.8-11.6)
[2018-04-30] MEDS ORDERED: Phenylephrine/NS 1000 MCG/10ML Syringe IV.PUSH ONE (07:42)
[2018-04-30] MEDS ORDERED: Lidocaine PF 1% Inj 5 ML Syringe OTHER ONE (07:42)
[2018-04-30] MEDS ORDERED: Sodium Chlor 0.9% Inj 250 ML IV.CONT ONE (07:42)
[2018-04-30 07:45] LABS: Bacteria,Urine Rare /hpf; Bilirubin,Urine Negative (Negative); Clarity,Urine Hazy (Clear); Color,Urine Yellow (Yellw/Straw); Glucose,Urine (UA) Negative (Negative); Hyaline Casts,Urine 3 /lpf (0-3); Leukocyte Esterase,Urine Large (Negative); Nitrite,Urine Negative (Negative); Specific Gravity,Urine 1.014 (1.002-1.035); Squamous Epithelial Cell,Urine 10 /hpf (0-5); Transitional Epi Cells,Urine 2 /hpf
[2018-04-30] MEDS ORDERED: Thrombin Topical Soln 5,000 UNIT Vial TOPICAL ONE (08:01)
[2018-04-30] MEDS ORDERED: Bisacodyl 10 MG Supp RECTAL PRN (09:02)
--- NOTE | 2018-04-30 09:02 | P.OP ---
- Preoperative Diagnosis (1) AVF (arteriovenous fistula) (2) ESRD on dialysis - Postoperative Diagnosis (1) AVF (arteriovenous fistula) (2) ESRD on dialysis Date of procedure: 04/30/18 Procedure: L UE access revision (interposition) Implants: 6mm PTFE Anesthesia: GETA Surgeon: Robles Ventura MD Casting Room Operator: Amos Gill Estimated blood loss (mL): 50 IV fluids (mL): 700 Pathology: other (graft and thombus around graft) Operation and Findings: thrombus around graft without overt graft pathology good Doppler signal at wrist after excision + thrill ok to use AVG
[2018-04-30 09:41] LABS: Calcium 8.9 mg/dL (8.5-10.1); Carbon Dioxide 20.8 meq/L (21.0-32.0); Potassium 4.6 meq/L (3.5-5.1)
[2018-04-30] MEDS ORDERED: fentaNYL Citrate Inj 100 MCG/2 ML Ampul ONE (09:44)
[2018-04-30] MEDS ORDERED: Morphine Sulfate Inj 2 MG/ML Vial IV.PUSH PRN (10:30)
--- NOTE | 2018-04-30 10:56 | MP ---
cc: Robles Ventura MD DATE OF OPERATION: 04/30/2018 PREOPERATIVE DIAGNOSIS: Left upper extremity mass around access. POSTOPERATIVE DIAGNOSIS: Left upper extremity mass around access. PROCEDURE: Left upper extremity access revision. ATTENDING SURGEON: Dr. Robles Ventura PLASTIC JOINT MAKER SURGEON: Amos Gill ANESTHESIA: General. INDICATIONS: Ms. Hare is a 77-year-old lady who had a left upper extremity axillary artery to axillary vein arteriovenous graft. She has a mass in her antecubital that is not consistent with a pseudoaneurysm and has some discomfort caused by this. She was taken to the operating room for access revision. DESCRIPTION OF PROCEDURE: Informed consent was obtained from the patient. She was taken to the operating room and placed supine on the operating table. Appropriate timeout was taken to ensure the patient's identity, operative site and planned procedure. The administration of 1 gram of vancomycin was initiated prior to skin incision and will be discontinued the single preoperative; vancomycin was chosen because of the patient's end-stage renal disease. Everyone in the room agreed with timeout and we proceeded. The left arm was prepped and draped and her previous antecubital incision was opened with a 10-blade, carried down through subcutaneous tissue with electrocautery. The mass was circumferentially dissected. It appeared to encompass the arteriovenous graft. The inflow and outflow of the graft was dissected free and test clamped. During the test clamp there was a nice Doppler signal in the wrist. After the mass was completely dissected free. The patient was systemically heparinized with 3000 units of IV heparin. The mass, including the incorporated graft, was excised and a 6 mm PTFE was brought up on the field. The ends were spatulated and sewn end-to-end proximally and distally with a running 5-0 Prolene suture. At the completion, it was flushed and noted to be hemostatic. There was a nice thrill in the fistula and Doppler signal in the wrist. The heparin was reversed with protamine. The wound was made hemostatic and closed with 2-0 Polysorb, 3-0 Polysorb and 4-0 Monocryl. The sponge and needle counts were correct at the end of the case. The mass was sent for pathology. MD LYNDA Odom/lv , 09:27 AM , 09:33 AM
[2018-04-30] MEDS ORDERED: Heparin 10,000 UNITS/10 ML Vial (for IV use) OTHER PRN ×2 (13:28)
[2018-04-30] MEDS ORDERED: Sod Chloride 0.9% Inj 1,000 ML IV.CONT PRN (13:28)
[2018-04-30] MEDS ORDERED: Epoetin Alfa Inj 4,000 UNIT/ML Vial IV.PUSH PRN (13:28)
[2018-04-30] MEDS ORDERED: Albumin Human 25% Inj 100 ML IV.SIG PRN (13:28)
[2018-04-30] MEDS ORDERED: Gelatin 12 MM/7 MM Topical Foam TOPICAL PRN (13:28)
[2018-04-30] MEDS ORDERED: Acetaminophen 325 MG Tablet PO PRN (13:28)
[2018-04-30] MEDS ORDERED: Sod Chloride 0.9% Inj 1,000 ML OTHER PRN ×2 (13:28)
--- NOTE | 2018-04-30 14:40 | P.CONNP ---
History of Present Illness Service: Nephrology Consult date: 04/30/18 Requesting Physician: Robles Ventura Reason for Consult: End-stage renal disease Primary Care Provider: No Primary Care Physician Chief Complaint: Left arm AV fistula aneurysm repair History of Present Illness: Patient is a 77-year-old female with history of ESRD, hemodialysis on Saturday and Saturday who came in for AV aneurysm repair which was done today, she is doing well denies any chest pain or shortness of breath. Patient is having lunch and is comfortable. Review of Systems Constitutional: Denies anorexia, Denies body ache(s), Denies chills, Denies daytime sleepiness, Denies excessive sweating, Denies fatigue, Denies fever(s), Denies headache(s), Denies increased appetite, Denies lack of energy, Denies malaise, Denies night sweats, Denies weakness, Denies weight gain, Denies weight loss, Denies other Eyes: Denies blind spots, Denies blurry vision, Denies bulging eyes, Denies change in vision, Denies double vision, Denies discharge, Denies dry eyes, Denies floaters, Denies irritation, Denies itchy eyes, Denies loss of vision, Denies pain, Denies requires corrective lenses, Denies sensitivity to light, Denies other Ears, Nose, Mouth, and Throat: Denies abnormal hearing, Denies bleeding gums, Denies bad breath, Denies change in voice, Denies dental pain, Denies difficulty swallowing, Denies dizziness, Denies dry mouth, Denies ear discharge , Denies ear pain, Denies facial pain, Denies headache(s), Denies hearing loss, Denies hoarseness, Denies lip swelling, Denies nosebleed, Denies mouth lesions, Denies mouth pain, Denies nasal congestion, Denies nasal discharge, Denies nasal obstruction, Denies nasal trauma, Denies neck lump, Denies neck pain, Denies nose pain, Denies pain with swallowing, Denies poor balance, Denies post nasal drip, Denies ringing in the ears, Denies sinus pain, Denies sinus pressure , Denies sore throat, Denies throat swelling, Denies tongue swelling, Denies other Cardiovascular: Denies chest pain, Denies chest pain at rest, Denies chest pain with activity, Denies excessive sweating, Denies fainting, Denies fast heart rate, Denies foot swelling, Denies generalized swelling, Denies irregular heart rhythm, Denies leg pain with activity, Denies leg sores, Denies leg swelling, Denies lightheadedness, Denies radiating jaw, neck or arm pain, Denies rapid, pounding, or irregular heartbeat, Denies shortness of breath, Denies shortness of breath with activity, Denies shortness of breath when lying down, Denies shortness of breath causing sudden awakening, Denies slow heart rate, Denies other Respiratory: Denies change in phlegm color, Denies chest congestion, Denies cough, Denies coughing up blood, Denies excessive phlegm production, Denies pain on inspiration, Denies pain with cough, Denies shortness of breath, Denies shortness of breath with activity, Denies snoring, Denies stridor, Denies wheezing, Denies other Gastrointestinal: Denies abdominal pain, Denies belching, Denies black, tarry stools, Denies bloating, Denies bright, red blood in stools, Denies change in bowel habits, Denies constant urge to pass stool, Denies change in stools, Denies coffee ground vomit, Denies constipation, Denies cramping, Denies difficulty swallowing, Denies excessive passing of gas, Denies feeling full early, Denies heartburn, Denies incontinent of stools, Denies loose stools, Denies nausea, Denies pain with swallowing, Denies vomiting, Denies vomiting blood, Denies other Genitourinary: Denies abnormal periods, Denies abnormal vaginal bleeding, Denies absent period, Denies bleeding between periods, Denies blood in urine, Denies difficulty starting urination, Denies difficulty urinating, Denies dribbling after urination, Denies frequent nighttime urination, Denies genital itching, Denies genital lesions, Denies heavy periods, Denies hot flashes, Denies light periods, Denies nipple discharge, Denies painful intercourse, Denies painful periods, Denies painful urination, Denies pelvic pain, Denies prolapse symptoms, Denies sexual problems, Denies side pain, Denies urinary incontinence, Denies urinary urgency, Denies vaginal discharge, Denies vaginal dryness, Denies vaginal odor, Denies vaginal itching, Denies other Musculoskeletal: Reports joint pain Skin/Breast: Reports other Endocrine: Denies cold intolerance, Denies excessive sweating, Denies flushing, Denies heat intolerance, Denies increased hunger, Denies increased thirst, Denies increased urination, Denies rapid, pounding, or irregular heartbeat, Denies other Hematologic/Lymphatic: Denies easy bleeding, Denies easy bruising, Denies enlarged lymph nodes, Denies other Allergic/Immunologic: Denies GI upset with certain foods, Denies hives, Denies itchy eyes, Denies lip swelling, Denies seasonal runny nose, Denies throat swelling, Denies tongue swelling, Denies wheezing, Denies other PMFSH - History History Provided By: Patient, Medical Record - Medical History Medical History: Medical History (Last Reviewed 04/30/18 @ 14:35 by Dewayne Yanez MD) Absent parathyroid gland Anemia DVT (deep venous thrombosis) Diverticulitis of colon with perforation End stage renal disease on dialysis History of blood product transfusion Hx of hysterectomy Hypertension Pulmonary embolism Vascular dialysis catheter in place - Surgical History Surgical History: Surgical History (Last Reviewed 04/30/18 @ 14:35 by Dewayne Yanez MD) History of arteriovenous graft Hx of colostomy Hx of ileostomy - Family History Family History: Family History (Last Reviewed 04/30/18 @ 14:35 by Dewayne Yanez MD) Son Kidney disease Daughter Kidney disease - Social History I have reviewed the patient's Social History: Yes - Tobacco History Second Hand Smoke Exposure: No Tobacco Use In Past 30 Days: No Smoking Status: Never smoker - Alcohol History How Often Do You Have a Drink Containing Alcohol: Never - Substance Use History Substance History: No History of Abuse - Travel History Recent Travel in the [place] Within the Last 8 Weeks: No Recent Travel Out of the Country Within the Last 8 Weeks: No Medications and Allergies Active Medications: Active Medications Acetaminophen (Tylenol) 650 mg PO UNSCH PRN PRN Reason: SEE LABEL COMMENTS Al Hydroxide/Mg Hydroxide (Milk Of Magnesia Liq) 30 ml PO Q12H PRN PRN Reason: Mild Constipation Bisacodyl (Dulcolax Supp) 10 mg RECTAL DAILY PRN PRN Reason: SEVERE CONSITIPATION Clonidine HCl (Catapres) 0.1 mg PO UNSCH PRN PRN Reason: SEE LABEL COMMENTS Diphenhydramine HCl (Benadryl) 25 mg PO UNSCH PRN PRN Reason: SEE LABEL COMMENTS Epoetin Justice (Epogen Inj) 4,000 unit IV.PUSH UNSCH PRN PRN Reason: SEE LABEL COMMENTS Gelatin (Gelfoam 12 Mm/7 Mm Topical) 1 foam TOPICAL PRN PRN PRN Reason: help stop bleeding from site Gentamicin Sulfate (Gentamicin Inj) 20 mg OTHER WITH DIALYSIS PRN PRN Reason: Dwell Gentamycin Lock Heparin Sodium (Porcine) (Heparin Inj) 5,000 units SQ Q8H [place] Heparin Sodium (Porcine) (Heparin Inj) 8,000 units OTHER WITH DIALYSIS PRN PRN Reason: for machine prime Heparin Sodium (Porcine) (Heparin Inj) 1,000 units OTHER WITH DIALYSIS PRN PRN Reason: Dwell Heparin to Fill Catheter Hydromorphone HCl (Dilaudid) 2 mg PO Q4H PRN PRN Reason: PAIN SCALE 6 TO 10 Lactated Ringer's (Lr 1000 Ml Inj) 1,000 mls @ 30 mls/hr IV.CONT .Q24H ONE Stop: 05/01/18 06:59 Last Admin: 04/30/18 07:36 Dose: Not Given Sodium Chloride (Ns Inj) 500 mls @ 30 mls/hr IV.CONT .[id number] ONE Stop: 04/30/18 23:39 Last Admin: 04/30/18 07:00 Dose: 30 mls/hr Albumin Human (Flexbumin 25% Inj) 100 mls @ 60 mls/hr IV.SIG WITH DIALYSIS PRN PRN Reason: hypotension / volume replace Sodium Chloride (Ns Inj) 1,000 mls @ 200 mls/hr OTHER .Q5H PRN PRN Reason: for dialyzer flush PRN Sodium Chloride (Ns Inj) 1,000 mls @ 0 mls/hr IV.CONT .Q0M PRN PRN Reason: hypotension / volume replace Sodium Chloride (Ns Inj) 1,000 mls @ 0 mls/hr OTHER .Q0M PRN PRN Reason: for prime and rinse back Lactulose (Lactulose Liq) 30 ml PO DAILY PRN PRN Reason: SEVERE CONSITIPATION Loperamide HCl (Imodium) 2 mg PO BID [place] Mannitol (Mannitol Inj) 12.5 gm IV.PUSH UNSCH PRN PRN Reason: hypotension / volume replace Metoprolol Succinate (Toprol Xl) 50 mg PO DAILY [facility] Miscellaneous Information (Mis Nursing Information) 1 each OTHER UNSCH PRN PRN Reason: SEE LABEL COMMENTS Stop: 05/01/18 09:30 Morphine Sulfate (Morphine Inj) 2 mg IV.PUSH Q1H PRN PRN Reason: BREAKTHROUGH PAIN Nitroglycerin (Nitrostat Sl) 0.4 mg SL Q5M PRN PRN Reason: CHEST PAIN Ondansetron HCl (Zofran Odt) 8 mg PO TID PRN PRN Reason: NAUSEA/VOMITING Ondansetron HCl (Zofran Inj) 4 mg IV.PUSH UNSCH PRN PRN Reason: NAUSEA OR VOMITING Oxycodone HCl (Roxicodone) 5 mg PO Q4H PRN PRN Reason: PAIN SCALE 1 TO 5 Senna/Docusate Sodium (Aidee-Colace) 1 tab PO BID [facility] Sennosides (Senokot) 17.2 mg PO Q12H PRN PRN Reason: Moderate Constipation Sodium Chloride (Ns Flush) 5 ml IV.FLUSH PRN PRN PRN Reason: flush each lumen during HD Tramadol HCl (Ultram) 50 mg PO Q6H [facility] Last Admin: 04/30/18 12:29 Dose: 50 mg Warfarin Sodium (Coumadin) 3 mg PO DAILY@1600 [facility] Allergies Allergy/AdvReac Type Severity Reaction Status Date / Time Sulfa (Sulfonamide Allergy Swelling Verified 04/30/18 07:06 Antibiotics) Home Medications Medication Instructions Recorded Confirmed Type ondansetron HCl [Zofran] 8 mg PO TID PRN 01/10/18 04/30/18 History tramadol 50 mg PO Q6H 01/10/18 04/30/18 History metoprolol succinate 50 mg PO DAILY 02/05/18 04/30/18 History loperamide [Imodium A-D] 2 mg PO BID 02/08/18 04/30/18 History Exam Vital signs: Vital Signs 04/30/18 07:11 04/30/18 09:30 04/30/18 09:45 Temperature 97.1 F L Pulse Rate 72 73 69 Respiratory Rate 16 13 10 L Blood Pressure 154/71 H 111/55 L 114/58 L Pulse Oximetry 99 99 100 04/30/18 10:00 04/30/18 10:17 04/30/18 10:30 Temperature Pulse Rate 68 71 72 Respiratory Rate 9 L 11 L 14 Blood Pressure 109/55 L 101/53 L 106/51 L Pulse Oximetry 100 97 95 04/30/18 10:45 04/30/18 11:00 04/30/18 11:15 Temperature 97.5 F L Pulse Rate 76 75 78 Respiratory Rate 12 15 14 Blood Pressure 102/50 L 100/51 L 99/50 L Pulse Oximetry 94 L 94 L 97 04/30/18 11:30 04/30/18 12:18 Temperature 98.2 F Pulse Rate 79 78 Respiratory Rate 16 18 Blood Pressure 101/51 L 125/61 Pulse Oximetry 97 98 Intake & Output 04/29/18 04/30/18 04/30/18 18:59 06:59 18:59 Intake Total 700 / 700 Output Total 50 / 50 Balance 650 / 650 Weight 54.9 kg Intake: Anesthesia Amount 700 / 700 Output: Estimated Blood Loss 50 / 50 Other: Weight On Admission 54.9 kg Narrative: GENERAL: Well-nourished, well-developed patient. SKIN: Warm and dry. HEAD: Normocephalic. EYES: No scleral icterus. No injection or drainage. NECK: Supple, trachea midline. No JVD or lymphadenopathy. CARDIOVASCULAR: Regular rate and rhythm without murmurs, gallops, or rubs. RESPIRATORY: Breath sounds equal bilaterally. No accessory muscle use. GASTROINTESTINAL: Abdomen soft, non-tender, nondistended. EXTREMITIES: Left status post surgical incision NEUROLOGICAL: Awake, alert, and oriented x 3. Non-focal. Results - Lab Results 04/30/18 07:10 04/30/18 08:37 Most recent lab results Calcium 8.9 mg/dL (8.5-10.1) 04/30/18 08:37 Assessment and Plan - Assessment (1) ESRD on dialysis Code(s): N18.6 - End stage renal disease; Z99.2 - Dependence on renal dialysis Status: Chronic (2) Hypertension Code(s): I10 - Essential (primary) hypertension Status: Chronic (3) AVF (arteriovenous fistula) Code(s): I77.0 - Arteriovenous fistula, acquired Status: Acute - Plan Patient seen after surgery she is doing well hemodialysis will be arranged for tomorrow, maintain her on Saturday, and Saturday schedule Continue to monitor her progress (2) Hypertension Qualifiers: Hypertension type: renovascular hypertension Qualified Code(s): I15.0 - Renovascular hypertension
--- NOTE | 2018-04-30 18:36 | ECG ---
Date Performed: 04/30/2018 Time Performed: 06:47:24 PTAGE: 77 years EKG: Sinus rhythm NORMAL ECG PREVIOUS TRACING : 02/12/2018 20.31 Since the previous tracing, no significant change noted DOCTOR: Mario Armenta Interpretating Date/Time 04/30/2018 18:34:46
[2018-04-30] MEDS: Loperamide 2 MG Capsule PO SCH (21:37)
[2018-04-30] MEDS: Senna/Docusate Sodium 8.6/50 MG Tablet PO SCH (21:37)
[2018-05-01 04:12] LABS: Hematocrit 32.2 % (35.0-46.0); Hemoglobin 10.4 gm/dL (11.6-15.3); Mean Corpuscular HGB Conc 32.3 % (32.0-36.0); Mean Corpuscular Hemoglobin 31.5 pg (27.0-34.0); Mean Corpuscular Volume 97.4 fL (80.0-100.0); Mean Platelet Volume 8.4 fL (7.0-11.0); Platelet Count 111 th/mm3 (150-450); Red Blood Count 3.31 mil/mm3 (4.00-5.30); Red Cell Distribution Width 17.7 % (11.6-17.2); White Blood Count 5.4 th/mm3 (4.0-11.0)
[2018-05-01 04:39] LABS: Calcium 8.7 mg/dL (8.5-10.1); Carbon Dioxide 23.9 meq/L (21.0-32.0); Potassium 4.9 meq/L (3.5-5.1)
[2018-05-01] MEDS ORDERED: Heparin - SQ 10,000 UNITS/ML Vial SQ SCH (08:00)
--- NOTE | 2018-05-01 10:23 | P.PNVS ---
Subjective Post Op Day #: 1 Procedure: L UE access revision (interposition) Subjective/Hospital Course: Pt seen in HD alert in NAD Pt reported improved L hand pain Audible thrill near L UE AVF Palpable L radial pulse L arm Incision intact w/ ecchymosis checo wound Objective Vital Signs / I&O: Vital Signs 04/30/18 10:17 04/30/18 10:30 04/30/18 10:45 Temperature Pulse Rate 71 72 76 Respiratory Rate 11 L 14 12 Blood Pressure 101/53 L 106/51 L 102/50 L Pulse Oximetry 97 95 94 L 04/30/18 11:00 04/30/18 11:15 04/30/18 11:30 Temperature 97.5 F L Pulse Rate 75 78 79 Respiratory Rate 15 14 16 Blood Pressure 100/51 L 99/50 L 101/51 L Pulse Oximetry 94 L 97 97 04/30/18 12:18 04/30/18 16:00 04/30/18 19:00 Temperature 98.2 F 97.9 F Pulse Rate 78 91 H 84 Respiratory Rate 18 16 Blood Pressure 125/61 126/69 Pulse Oximetry 98 98 04/30/18 19:41 04/30/18 20:00 04/30/18 21:00 Temperature 97.5 F L Pulse Rate 88 86 Respiratory Rate 16 16 Blood Pressure 151/67 H Pulse Oximetry 97 04/30/18 21:43 04/30/18 22:00 04/30/18 23:00 Temperature Pulse Rate 82 84 Respiratory Rate 16 Blood Pressure Pulse Oximetry 05/01/18 00:00 05/01/18 01:00 05/01/18 02:00 Temperature 97.5 F L Pulse Rate 97 H 77 82 Respiratory Rate 18 Blood Pressure 136/66 Pulse Oximetry 98 05/01/18 03:00 05/01/18 04:00 05/01/18 05:00 Temperature 97.8 F Pulse Rate 99 H 85 91 H Respiratory Rate 18 Blood Pressure 127/88 Pulse Oximetry 100 05/01/18 06:00 Temperature Pulse Rate 84 Respiratory Rate Blood Pressure Pulse Oximetry Intake & Output 04/30/18 05/01/18 05/01/18 18:59 06:59 18:59 Intake Total 1350 / 1350 1220 / 1220 Output Total 150 / 150 800 / 800 Balance 1200 / 1200 420 / 420 Weight 54.9 kg 58 kg Intake: IV 500 / 500 NS Inj 500 ML @ 30 mls/hr IV. 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 Laboratory Results - last 24 hr 05/01/18 05/01/18 03:55 03:55 WBC 5.4 RBC 3.31 L Hgb 10.4 L Hct 32.2 L MCV 97.4 MCH 31.5 MCHC 32.3 RDW 17.7 H Plt Count 111 L MPV 8.4 Sodium 134 L Potassium 4.9 Chloride 101 Carbon Dioxide 23.9 Anion Gap 9 BUN 48 H Creatinine 5.28 H Estimated GFR 8 L Random Glucose 97 Calcium 8.7 Assessment and Plan - Assessment (1) ESRD on dialysis Code(s): N18.6 - End stage renal disease; Z99.2 - Dependence on renal dialysis Status: Chronic (2) AVF (arteriovenous fistula) Code(s): I77.0 - Arteriovenous fistula, acquired Status: Acute - Plan Pt s/p LEFT upper extremity AVF revision POD 1 Looks good Pt reports improved sensation to L hand Palpable distal pulse noted Plan Pt clear for D/C after HD Arranged post op F/U Krista Le NP [facility]/Radha [phone] - Attending Attestation Agree with above; looks good. Ok to use AVG in areas not near fresh incision
--- NOTE | 2018-05-01 10:40 | P.DS ---
Discharge Summary - Admission Date 04/30/18 09:58 - Admission Diagnosis (1) AVF (arteriovenous fistula) - Discharge Date 05/01/18 - Summary Brief History from admission: 77 yo female with ESRD currently on HD TTS via L chest catheter. On January 01, she underwent L ax-ax loop AVG. Not yet used. Has swelling at elbow (counter incision) and axilla. No pseudoaneursym by duplex. Presents for access revision, potentially hematoma evacuation only. No changes in overall health except R posterior calf wound that she said started as snake bite. No F/C Full run of HD yesterday. 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 Presented for access revision, potentially hematoma evacuation only. Pt s/p L UE access revision (interposition) Pt doing well and reports improved pain and sensation to L hand Incision intact UE warm w/ motor intact Pt clear for D/C post HD Arranged out pt f/u E -Forcse reviewed- Pain medication was prescribed for post operative pain management - Discharge Instructions Any questions or concerns: Call [facility] at [facility] [phone] Discharge Plan - Discharge Disposition Patient Disposition: 01 Discharge Home - Discharge Condition Condition: Good - Discharge Order Discharge Orders: Discharge Order (Routine); Ordered 05/01/18 Ordered By: Krista Le - Physicians Team Primary Care Provider: Primary Care Jose Alfredo,Neema Attending Provider: Robles Ventura Other Providers: Dewayne Yanez MD - Rxs /Orders / Referrals /Forms Prescriptions: New oxycodone 5 mg Tablet 5 mg PO Q4-6H PRN (Reason: Pain) Qty: 20 RF: 0 Continue loperamide [Imodium A-D] 2 mg Capsule 2 mg PO BID metoprolol succinate 50 mg Tablet Extended Release 24 Hr 50 mg PO DAILY ondansetron HCl [Zofran] 4 mg Tablet 8 mg PO TID PRN (Reason: Nausea) tramadol 50 mg Tablet 50 mg PO Q6H warfarin 3 mg Tablet 3 mg PO DAILY Qty: 30 RF: 0 Referrals: Primary Care Neema Veliz [Primary Care Provider] - See Instructions Robles Ventura MD [Physician] - See Instructions (Your post op Follow up is scheduled on 05/23/18 at 11:00) - Discharge Instructions Patient Printed Instructions: Dialysis Diet (GEN), Arteriovenous Graft Placement for Hemodialysis (DC), End Stage Kidney Disease (GEN) - Post Discharge Care Plan Care Plan Goals: Discharge Care Plan Goals After Vascular Surgery Contact: Please call [phone] if you have any problems or have questions regarding your hospitalization. Directions to Meet Your Goals: 1. Diet: * You may resume a regular diet as you were eating at home before your admission. 2. Activity: * Increase your activity level gradually. * Keep surgical extremities elevated when at rest. This will help limit the swelling, bruising and discomfort normally present after surgery. * Walking is a good form of light exercise. Go for a walk at least 3 times per day. * No heavy lifting (lifting over 10 pounds) for at least 4 weeks from surgery. * Check with your surgeon to ensure when you are cleared for heavy lifting and full-intensity exercising. * Your strength will gradually improve. * No driving or operating motorized vehicles while on prescription pain medications. * No swimming until wounds fully healed. * Return to work when cleared by MD/PA/CHILD DEVELOPMENT DIRECTOR. 3. Bathing: Shower daily. * Gently let soap and water run over your incision and pat dry. Do not scrub the incision/wound. * Don't soak in a bath or submerge your incision in water until your incision is healed and evaluated by your physician at follow-up (usually two weeks). 4. Wound Care: INCISION SITE CARE INSTRUCTIONS: * You may leave your incision open to air. * Keep your incision clean and dry, unless showering. See above. * Moisture near the incision will cause the wound to open. * No lotions, creams, ointments, or powders on incisions until they are well- healed. * If you have glue over the incision(s), allow it to fall off naturally in 1-3 weeks * If present, leyla/sutures will be removed 2-3 weeks after surgery during your follow-up clinic visit. * If present, change dressing/bandage when soaked/soiled as needed. * Observe wound daily, checking for signs and symptoms of infection including: foul odor, drainage from the incision, increased redness, increased pain at incision, or increased swelling. 5. Pain Control: Expect post-operative pain for 1-4 weeks after surgery. Your pain will improve gradually. * You may have been provided with a prescription for pain medication. Please take as directed, and be aware of side effects such as drowsiness, constipation and mild stomach discomfort. Pain pills on an empty stomach can cause nausea , so eat a small amount of food, such as crackers, when taking these pills. * Take [id number] stool softeners (Colace or Senna) with your prescribed pain medication. * Acetaminophen (500mg every 6 hours) or Ibuprofen (400mg every 6 hours) may be used in conjunction with narcotics to relieve pain. DO NOT take more than 4 grams (4000mg) of Tylenol in one day, as this can harm your liver. DO NOT take ibuprofen IF: you have an allergy to non-steroidal anti-inflammatory medications, you are taking Coumadin, you have been told you have kidney problems, or you have a history of gastrointestinal bleeding or ulcers. DO NOT take more than 3.2 grams (3200mg) of ibuprofen in one day. * You may also find relief from using heat packs or pads or ice packs. 6. Bowel Regimen for Constipation: * People who undergo surgery are likely to develop post-operative constipation. Exposure to narcotics and changes in diet, fluid intake, and physical activity are known contributors to constipation. We recommend routine stool softeners and/ or laxatives after surgery for most patients. Start by taking one medication. You can increase as directed to relieve constipation. Stop taking these medications if you develop diarrhea. These medications are available over-the- counter and do not require a prescription: * Colace is a stool softener. We recommend starting at 100mg orally twice per day as needed for soft stools and increase to a maximum of 200mg twice daily as needed. * Senna is a laxative that works by keeping water in the intestine to help stool move along the intestinal tract. Take 1 tablet daily as needed for soft stool and increase to a maximum of 2 tablets twice daily as needed. Take Senna with two full glasses of water each time. * Miralax, Dulcolax and Milk of Magnesia are other lfeb-gme-lpcuduz laxatives that may be used as needed for post-operative constipation. * Drink 6-8 glasses of water per day. * Consume 15-30g of fiber per day: * Metamucil powder, 1-2 tablespoons 1-2 times/day OR Benefiber powder, 2 tablespoons 4 times/day. * Avoid straining. 7. Follow-Up: Do Not miss your follow-up appointment. Keep up with all your appointments and yearly check ups If you have any of the following symptoms please call [phone] immediately: Excessive swelling of the affected extremity Sudden onset of severe or unusual pain in the affected extremity Pain that gets worse or is not relieved by medication Warmth, redness, or swelling in the skin around the wound Foul drainage from incision Extensive bruising or discoloration Wound that opens up or pulls apart Fever above 101.5F or shaking chills Nausea or vomiting Severe diarrhea or severe constipation Dizziness or fainting Chest pain, shortness of breath, or increased work of breathing Weight gain >10 lbs over 3-4 days Inability to urinate for more than 6 hours Cloudy or foul smelling urine Urge to urinate more often than usual Symptoms to Report to Your Doctor: Temperature 101F or higher Pain uncontrolled by medication Drainage or foul odor from incision Extensive bruising or discoloration Chest pain Shortness of breath Nausea, vomiting or dizziness Call 911: Call 911 right away if you have: Sudden onset of chest pain that is not relieved by medications Shortness of breath
[2018-05-01] MEDS: Loperamide 2 MG Capsule PO SCH (13:10)
[2018-05-01 13:41] VITALS: BP 141/68; RESP 18; TEMP 98.9; O2SAT 96
--- NOTE | 2018-05-01 13:49 | P.PNNP ---
Subjective Interval history: Seen during dialysis Physical Exam Vital signs: Vital Signs 04/30/18 16:00 04/30/18 19:00 04/30/18 19:41 Temperature 97.9 F Pulse Rate 91 H 84 Respiratory Rate 16 16 Blood Pressure 126/69 Pulse Oximetry 98 04/30/18 20:00 04/30/18 21:00 04/30/18 21:43 Temperature 97.5 F L Pulse Rate 88 86 Respiratory Rate 16 16 Blood Pressure 151/67 H Pulse Oximetry 97 04/30/18 22:00 04/30/18 23:00 05/01/18 00:00 Temperature 97.5 F L Pulse Rate 82 84 97 H Respiratory Rate 18 Blood Pressure 136/66 Pulse Oximetry 98 05/01/18 01:00 05/01/18 02:00 05/01/18 03:00 Temperature Pulse Rate 77 82 99 H Respiratory Rate Blood Pressure Pulse Oximetry 05/01/18 04:00 05/01/18 05:00 05/01/18 06:00 Temperature 97.8 F Pulse Rate 85 91 H 84 Respiratory Rate 18 Blood Pressure 127/88 Pulse Oximetry 100 05/01/18 07:00 05/01/18 08:00 05/01/18 09:00 Temperature 98.5 F Pulse Rate 83 80 76 Respiratory Rate 16 Blood Pressure 134/83 Pulse Oximetry 99 05/01/18 10:00 05/01/18 11:00 05/01/18 12:00 Temperature 98.9 F Pulse Rate 80 80 78 Respiratory Rate 18 Blood Pressure 141/68 H Pulse Oximetry 96 Intake & Output 04/30/18 05/01/18 05/01/18 18:59 06:59 18:59 Intake Total 1350 / 1350 1220 / 1220 Output Total 150 / 150 800 / 800 500 / 500 Balance 1200 / 1200 420 / 420 -500 / -500 Weight 54.9 kg 58 kg Intake: IV 500 / 500 NS Inj 500 ML @ 30 mls/hr IV. 500 / 500 CONT .[id number] ONE Rx#:[id number] Oral 650 / 650 720 / 720 Anesthesia Amount 700 / 700 Output: Urine 800 / 800 Hemodialysis Amount 500 / 500 Estimated Blood Loss 50 / 50 Stool Amount (Stoma) 100 / 100 Pre-Hospital: Right Lower 100 / 100 Abdomen Other: # Voids 1 1 Weight On Admission 54.9 kg Narrative: GENERAL: Well-nourished, well-developed patient. SKIN: Warm and dry. HEAD: Normocephalic. EYES: No scleral icterus. No injection or drainage. NECK: Supple, trachea midline. No JVD or lymphadenopathy. CARDIOVASCULAR: Regular rate and rhythm without murmurs, gallops, or rubs. RESPIRATORY: Breath sounds equal bilaterally. No accessory muscle use. GASTROINTESTINAL: Abdomen soft, non-tender, nondistended. EXTREMITIES: Left status post surgical incision NEUROLOGICAL: Awake, alert, and oriented x 3. Non-focal. Assessment and Plan - Assessment (1) ESRD on dialysis Code(s): N18.6 - End stage renal disease; Z99.2 - Dependence on renal dialysis Status: Chronic (2) Hypertension Code(s): I10 - Essential (primary) hypertension Status: Chronic Qualifiers: Hypertension type: renovascular hypertension Qualified Code(s): I15.0 - Renovascular hypertension (3) AVF (arteriovenous fistula) Code(s): I77.0 - Arteriovenous fistula, acquired Status: Acute - Plan Patient seen after surgery Hemodialysis proceeding noted ultrafiltration of 0.5 L as tolerated Okay to discharge
[2018-05-01 14:04] VITALS: PULSE 81
[2018-05-01] MEDS: Senna/Docusate Sodium 8.6/50 MG Tablet PO SCH (14:04)
== END 2018-05-01 14:17 | disposition home or self-care (01) ==
LOC: HSDC 06:00 → HSDI 06:00 → HCPC 11:47
PROVIDERS: ADMIT Surgery; ATTEND Surgery

== ENCOUNTER 2018-05-17 12:03 | Inpatient (IN) ==
[2018-05-17] MEDS ORDERED: Acetaminophen 325 MG Tablet PO PRN ×2 (15:32→20:28)
[2018-05-17] MEDS ORDERED: Vancomycin Consult Pharmacy OTHER PRN (19:16)
[2018-05-17] MEDS ORDERED: Butalbital/APAP/Caff 50/325/40 MG Tablet PO ONE (19:25)
[2018-05-17] MEDS ORDERED: Morphine Inj 4 MG/ML Vial IV.PUSH PRN (19:25)
--- NOTE | 2018-05-17 19:38 | P.HPIM ---
History of Present Illness Primary Care Physician: UNKNOWN History of Present Illness: Mrs. Hare is a 77-year-old female. She has a chronic medical history of dialysis dependence with left arm graft. Previously she has had infection of the left arm which was treated with vancomycin and Keflex. She is been infection free but returns again complaining of 3 days of worsening redness, chills, and suspected infection. Indeed, her left arm shows strong evidence for cellulitic infection and suspicion for graft infection. Sepsis criteria are not present at time of admit but suspicion for serious infection remains based on clinical exam and patient's reported symptoms. Zosyn and vancomycin are provided at the deltoid in the ER at approximately 1600 on 05/17/2018. Patient's only other complaint is headache. Inpatient Certification: I certify that the inpatient services were ordered in accordance with Medicare regulations governing the order. This includes certification that hospital inpatient services are reasonable and necessary and in the case of services not specified as inpatient-only under 42 CFR 419.22(n), that they are appropriately provided as inpatient services in accordance to with the 2-midnight benchmark under 43 CFR 412.3(e) Estimated Total Length of Stay (Days): 4 Plans for Post Hospital Care: Home Review of Systems Constitutional: No documented fevers, chills, no night sweats, no fatigue, no weakness Eyes: No eye pain, no blurry vision, no loss of vision ENT: No sore throat, no ear pain, no rhinorrhea Cardiovascular: No chest pain, no tachycardia, no palpitations, no syncope Respiratory: No wheezing, no cough, no shortness of breath Gastrointestinal: No abdominal pain, no black tarry stools, no bright red blood per rectum, no vomiting, no diarrhea Musculoskeletal: No joint pain, no muscle cramps, no stiffness, left arm pain Integumentary: No rash, no ulcers, no drainage, erythema left arm Neurologic: No sensory loss, no loss of motor function, no dizziness Psychiatric: No behavioral changes, no hallucinations, no suicidal ideations PMFSH - History History Provided By: Patient - Medical History Medical History: Medical History (Last Updated 05/17/18 @ 12:41 by Marlyn Quezada RN) Absent parathyroid gland Anemia DVT (deep venous thrombosis) Diverticulitis of colon with perforation End stage renal disease on dialysis History of blood product transfusion Hx of hysterectomy Hypertension Ileostomy in place Pulmonary embolism Vascular dialysis catheter in place - Surgical History Surgical History: Surgical History (Last Reviewed 05/17/18 @ 12:41 by Marlyn Quezada RN) History of arteriovenous graft Hx of colostomy Hx of ileostomy - Family History Family History: Family History (Last Reviewed 04/30/18 @ 14:35 by Dewayne Yanez MD) Son Kidney disease Daughter Kidney disease - Tobacco History Second Hand Smoke Exposure: No Smoking Status: Never smoker - Alcohol History How Often Do You Have a Drink Containing Alcohol: Never - Substance Use History Substance History: No History of Abuse Medications and Allergies Active Medications: Active Medications Acetaminophen (Tylenol) 650 mg PO Q4H PRN PRN Reason: Temp > 100.4 Al Hydroxide/Mg Hydroxide (Milk Of Narayan Lam) 30 ml PO Q12H PRN PRN Reason: Mild Constipation Ondansetron HCl (Zofran Inj) 4 mg IV.PUSH Q6H PRN PRN Reason: NAUSEA OR VOMITING Allergies Allergy/AdvReac Type Severity Reaction Status Date / Time Sulfa (Sulfonamide Allergy Swelling Verified 05/17/18 12:38 Antibiotics) Home Medications Medication Instructions Recorded Confirmed Type tramadol 50 mg PO Q6H 01/10/18 05/17/18 History metoprolol succinate 50 mg PO BID 02/05/18 05/17/18 History cephalexin [Keflex] 500 mg PO BID 05/17/18 05/17/18 History warfarin 3 mg PO Q OTHER DAY 05/17/18 05/17/18 History warfarin 4 mg PO Q OTHER DAY 05/17/18 05/17/18 History Exam Vital signs: Vital Signs 05/17/18 16:00 Temperature 97.5 F L Pulse Rate 97 H Respiratory Rate 16 Blood Pressure 155/67 H Pulse Oximetry 98 Narrative: GENERAL: NAD, A&Ox3 HEAD: Normocephalic. NECK: Supple, trachea midline. No lymphadenopathy. EYES: No scleral icterus. No injection or drainage. CARDIOVASCULAR: Regular rate and rhythm without murmurs, gallops, or rubs. RESPIRATORY: Breath sounds equal bilaterally. No accessory muscle use. GASTROINTESTINAL: Abdomen soft, non-tender, nondistended. MUSCULOSKELETAL: No cyanosis, or edema. SKIN: Warm and dry. Left arm has erythema, induration, and he most prominent over graft site with a small amount of purulent material at graft scar NEURO: No focal neurological deficits. Caprini VTE Risk Assessment Caprini VTE Risk Assessment: No/Low Risk (score <= 1) Caprini Risk Assessment Model: Point Value = 1 Point Value = 2 Point Value = 3 Point Value = 5 Age 41-60 Minor surgery BMI > 25 kg/m2 Swollen legs Varicose veins or History of unexplained or recurrent spontaneous Oral contraceptives or hormone replacement Sepsis (< 1 month) Serious lung disease, including pneumonia (< 1 month) Abnormal pulmonary function Acute myocardial infarction Congestive heart failure (< 1 month) History of inflammatory bowel disease Medical patient at bed rest Age 61-74 Arthroscopic surgery Major open surgery (> 45 min) Laparoscopic surgery (> 45 min) Malignancy Confined to bed (> 72 hours) Immobilizing plaster cast Central venous access Age >= 75 History of VTE Family history of VTE Factor V Leiden Prothrombin [id number] Lupus anticoagulant Anticardiolipin antibodies Elevated serum homocysteine Heparin-induced thrombocytopenia Other congenital or acquired thrombophilia Stroke (< 1 month) Elective arthroplasty Hip, pelvis, or leg fracture Acute spinal cord injury (< 1 month) Prophylaxis Regimen: Total Risk Factor Score Risk Level Prophylaxis Regimen 0-1 Low Early ambulation 2 Moderate Order ONE of the following: *Sequential Compression Device (SCD) *Heparin 5000 units SQ BID 3-4 Higher Order ONE of the following medications: *Heparin 5000 units SQ TID *Enoxaparin/Lovenox 40 mg SQ daily (WT < 150 kg, CrCl > 30 mL/min) *Enoxaparin/Lovenox 30 mg SQ daily (WT < 150 kg, CrCl > 10-29 mL/min) *Enoxaparin/Lovenox 30 mg SQ BID (WT < 150 kg, CrCl > 30 mL/min) AND/OR *Sequential Compression Device (SCD) 5 or more Highest Order ONE of the following medications: *Heparin 5000 units SQ TID (Preferred with Epidurals) *Enoxaparin/Lovenox 40 mg SQ daily (WT < 150 kg, CrCl > 30 mL/min) *Enoxaparin/Lovenox 30 mg SQ daily (WT < 150 kg, CrCl > 10-29 mL/min) *Enoxaparin/Lovenox 30 mg SQ BID (WT < 150 kg, CrCl > 30 mL/min) AND *Sequential Compression Device (SCD) Assessment and Plan - Plan 77-year-old female admitted secondary to left arm graft infection and cellulitis Left arm graft infection Left arm cellulitis Consult vascular surgery Consult nephrology Zosyn Vancomycin Probiotics Follow vital signs closely Sepsis at time of admit End-stage renal disease Chronic dialysis dependence Nephrology consulted Follow electrolytes and renal function Dose adjust antibiotics Chronic anemia Likely related to chronic disease Follow CBC Hypertension Continue baseline treatment Follow blood pressures Adjust treatments as needed DVT (deep venous thrombosis) Pulmonary embolism INR is currently 1.4. Procedures likely necessary. Begin heparin drip for bridging purposes History of diverticulosis History of bowel perforation related to diverticulitis Ileostomy in place Supportive care Follow clinically DVT prophylaxis Heparin
[2018-05-17] MEDS ORDERED: Sodium Polystyrene Sulfonate/Sorbitol Liq 15 GM/60 ML UDC PO ONE (20:24)
[2018-05-17] MEDS ORDERED: Calcium Gluconate Inj 1 GM in Sodium Chlor 0.9% Inj 100 ML IV.SIG ONE (20:24)
[2018-05-17] MEDS ORDERED: Dextrose 50% in Water 50 ML Vial IV.PUSH ONE (20:24)
[2018-05-17] MEDS ORDERED: Sod Chloride 0.9% Inj 1,000 ML OTHER PRN ×2 (20:28)
[2018-05-17] MEDS ORDERED: Heparin 10,000 UNITS/10 ML Vial (for IV use) OTHER PRN (20:28)
[2018-05-17] MEDS ORDERED: Sod Chloride 0.9% Inj 1,000 ML IV.CONT PRN (20:28)
[2018-05-17] MEDS ORDERED: Gelatin 12 MM/7 MM Topical Foam TOPICAL PRN (20:28)
--- NOTE | 2018-05-17 20:36 | P.PN ---
Subjective Interval history: NOTED LABS AND HISTORY FROM ER missed dialysis and Labs were not reported to admitting Physician or Nurse Potassium of 6.4 not treated by ER I initiated the hyperkalemia protocol follow BMP Dialysis to be arranged depending on repeat K Physical Exam Vital signs: Vital Signs 05/17/18 16:00 Temperature 97.5 F L Pulse Rate 97 H Respiratory Rate 16 Blood Pressure 155/67 H Pulse Oximetry 98 Intake & Output 05/17/18 05/17/18 05/18/18 06:59 18:59 06:59 Weight 58 kg Other: Weight On Admission 58 kg
[2018-05-17] MEDS ORDERED: Piperacil/Tazo 2.25 GM Premix 50 ML IV.SIG SCH (21:00)
--- NOTE | 2018-05-17 22:08 | P.CONNP ---
History of Present Illness Service: Nephrology Consult date: 05/17/18 Requesting Physician: Johnathan Rodriguez Reason for Consult: ESRD management Primary Care Provider: UNKNOWN Chief Complaint: Left arm swelling History of Present Illness: Patient is a 77-year-old white female with a history of end-stage renal disease , history of ileostomy, who has been on dialysis on Saturday, and Saturday, she missed her dialysis as she had left arm AVG, swelling and had pain and redness went to the emergency in [place], labs drawn around 1349 PM showed potassium of 6.4, looking at the records there was no reinitiation of hyperkalemia protocol, it appears this information was not passed as I called the admitting nurse who was unaware of electrolyte imbalance, patient states she has a colostomy she has a left arm swelling and was not feeling well and that is why she came to the emergency. I repeated BMP stat and initiated hyperkalemia protocol with calcium gluconate, D50, insulin, Kayexalate, sodium bicarbonate, Patient is comfortable resting on room air Patient was given vancomycin and Zosyn. Review of Systems Constitutional: Reports weight loss Psychiatric: Reports other Endocrine: Denies cold intolerance, Denies excessive sweating, Denies flushing, Denies heat intolerance, Denies increased hunger, Denies increased thirst, Denies increased urination, Denies rapid, pounding, or irregular heartbeat, Denies other Hematologic/Lymphatic: Denies easy bleeding, Denies easy bruising, Denies enlarged lymph nodes, Denies other Allergic/Immunologic: Denies GI upset with certain foods, Denies hives, Denies itchy eyes, Denies lip swelling, Denies seasonal runny nose, Denies throat swelling, Denies tongue swelling, Denies wheezing, Denies other PMFSH - History History Provided By: Patient - Medical History Medical History: Medical History (Last Reviewed 05/17/18 @ 22:04 by Dewayne Yanez MD) Absent parathyroid gland Anemia DVT (deep venous thrombosis) Diverticulitis of colon with perforation End stage renal disease on dialysis History of blood product transfusion Hx of hysterectomy Hypertension Ileostomy in place Pulmonary embolism Vascular dialysis catheter in place - Surgical History Surgical History: Surgical History (Last Reviewed 05/17/18 @ 22:04 by Dewayne Yanez MD) History of arteriovenous graft Hx of colostomy Hx of ileostomy - Family History Family History: Family History (Last Reviewed 05/17/18 @ 22:04 by Dewayne Yanez MD) Son Kidney disease Daughter Kidney disease - Social History I have reviewed the patient's Social History: Yes - Tobacco History Second Hand Smoke Exposure: No Smoking Status: Never smoker - Alcohol History How Often Do You Have a Drink Containing Alcohol: Never - Substance Use History Substance History: No History of Abuse Medications and Allergies Active Medications: Active Medications Acetaminophen (Tylenol) 650 mg PO Q4H PRN PRN Reason: Temp > 100.4 Acetaminophen (Tylenol) 650 mg PO UNSCH PRN PRN Reason: SEE LABEL COMMENTS Al Hydroxide/Mg Hydroxide (Milk Of Magnestelle Liq) 30 ml PO Q12H PRN PRN Reason: Mild Constipation Clonidine HCl (Catapres) 0.1 mg PO UNSCH PRN PRN Reason: SEE LABEL COMMENTS Diphenhydramine HCl (Benadryl) 25 mg PO UNSCH PRN PRN Reason: SEE LABEL COMMENTS Epoetin Justice (Epogen Inj) 4,000 unit IV.PUSH UNSCH PRN PRN Reason: SEE LABEL COMMENTS Gelatin (Gelfoam 12 Mm/7 Mm Topical) 1 foam TOPICAL PRN PRN PRN Reason: help stop bleeding from site Gentamicin Sulfate (Gentamicin Inj) 20 mg OTHER WITH DIALYSIS PRN PRN Reason: Dwell Gentamycin Lock Heparin Sodium (Porcine) (Heparin Inj) 8,000 units OTHER WITH DIALYSIS PRN PRN Reason: for machine prime Heparin Sodium (Porcine) (Heparin Inj) 1,000 units OTHER WITH DIALYSIS PRN PRN Reason: Dwell Heparin to Fill Catheter Heparin Sodium/Dextrose (Heparin/D5w 25,000 U/250 Ml) 25,000 unit in 250 mls @ 0 mls/hr IV.CONT TITRATE PRN; Protocol PRN Reason: Per Protocol Piperacillin/Tazobactam/Dextrose (Zosyn 2.25 Gm Premix) 50 mls @ 100 mls/hr IV.SIG Q12H [place] Albumin Human (Flexbumin 25% Inj) 100 mls @ 60 mls/hr IV.SIG WITH DIALYSIS PRN PRN Reason: hypotension / volume replace Sodium Chloride (Ns Inj) 1,000 mls @ 0 mls/hr OTHER .Q0M PRN PRN Reason: for prime and rinse back Sodium Chloride (Ns Inj) 1,000 mls @ 200 mls/hr OTHER .Q5H PRN PRN Reason: for dialyzer flush PRN Sodium Chloride (Ns Inj) 1,000 mls @ 0 mls/hr IV.CONT .Q0M PRN PRN Reason: hypotension / volume replace Lactobacillus Acidophilus (Lactinex) 1 tab PO TID [facility] Mannitol (Mannitol Inj) 12.5 gm IV.PUSH UNSCH PRN PRN Reason: hypotension / volume replace Metoprolol Succinate (Toprol Xl) 50 mg PO BID [facility] Last Admin: 05/17/18 20:17 Dose: 50 mg Morphine Sulfate (Morphine Inj) 2 mg IV.PUSH Q4H PRN PRN Reason: Pain 3 to 6 Morphine Sulfate (Morphine Inj) 4 mg IV.PUSH Q4H PRN PRN Reason: Pain 7 to 10 Nitroglycerin (Nitrostat Sl) 0.4 mg SL Q5M PRN PRN Reason: CHEST PAIN Ondansetron HCl (Zofran Inj) 4 mg IV.PUSH Q6H PRN PRN Reason: NAUSEA OR VOMITING Ondansetron HCl (Zofran Inj) 4 mg IV.PUSH UNSCH PRN PRN Reason: NAUSEA OR VOMITING Pharmacy Profile Note (Vancomycin Consult Pharmacy) 1 each OTHER UNSCH PRN PRN Reason: Pharmacy to dose Sodium Chloride (Ns Flush) 5 ml IV.FLUSH PRN PRN PRN Reason: flush each lumen during HD Allergies Allergy/AdvReac Type Severity Reaction Status Date / Time Sulfa (Sulfonamide Allergy Swelling Verified 05/17/18 12:38 Antibiotics) Home Medications Medication Instructions Recorded Confirmed Type tramadol 50 mg PO Q8HR 01/10/18 05/18/18 History metoprolol succinate 50 mg PO BID 02/05/18 05/18/18 History cephalexin [Keflex] 500 mg PO BID 05/17/18 05/18/18 History warfarin 3 mg PO Q OTHER DAY 05/17/18 05/18/18 History warfarin 4 mg PO Q OTHER DAY 05/17/18 05/18/18 History Exam Vital signs: Vital Signs 05/17/18 16:00 05/17/18 20:00 05/17/18 21:07 Temperature 97.5 F L 97.7 F Pulse Rate 97 H 119 H Respiratory Rate 16 18 Blood Pressure 155/67 H 141/65 H Pulse Oximetry 98 99 99 Intake & Output 05/17/18 05/17/18 05/18/18 06:59 18:59 06:59 Weight 58 kg Other: Weight On Admission 58 kg Narrative: GENERAL: Well-nourished, well-developed patient. SKIN: Warm and dry. HEAD: Normocephalic. EYES: No scleral icterus. No injection or drainage. NECK: Supple, trachea midline. No JVD or lymphadenopathy. CARDIOVASCULAR: Tachycardia. RESPIRATORY: Breath sounds equal bilaterally. No accessory muscle use. GASTROINTESTINAL: Abdomen soft, non-tender, nondistended. Colostomy in right lower abdominal EXTREMITIES: Left arm swollen redness seen inferior portion edematous AVG NEUROLOGICAL: Awake, alert, and oriented x 3. Non-focal. Results - Lab Results 05/18/18 05:52 05/18/18 05:52 Assessment and Plan - Assessment (1) ESRD on dialysis Code(s): N18.6 - End stage renal disease; Z99.2 - Dependence on renal dialysis Status: Chronic (2) Hypertension Code(s): I10 - Essential (primary) hypertension Status: Chronic (3) Sepsis Code(s): A41.9 - Sepsis, unspecified organism Status: Acute (4) Cellulitis of left upper arm Code(s): L03.114 - Cellulitis of left upper limb Status: Acute (5) Hyperkalemia Code(s): E87.5 - Hyperkalemia Status: Acute - Plan I initiated treatment of hyperkalemia as above and will repeat the potassium it came back at 5.5, I will dialyze her tomorrow morning as she is in no acute respiratory distress Continue to monitor while she is in the hospital Discussed with staff, there was a delay in treating hyperkalemia Continue with Vancomycin with hemodialysis Continue supportive care Hemodialysis orders given. (2) Hypertension Qualifiers: Hypertension type: renovascular hypertension Qualified Code(s): I15.0 - Renovascular hypertension
[2018-05-17 22:12] LABS: Calcium 8.3 mg/dL (8.5-10.1); Carbon Dioxide 16.8 meq/L (21.0-32.0); Potassium 5.5 meq/L (3.5-5.1)
[2018-05-18] MEDS: Morphine Inj 4 MG/ML Vial IV.PUSH PRN (01:33)
[2018-05-18] MEDS: Piperacil/Tazo 2.25 GM Premix 50 ML IV.SIG SCH ×2 (04:10→15:30)
[2018-05-18] MEDS: Heparin Drip 25,000 UNIT/250 ML BAG IV.CONT PRN (05:10)
[2018-05-18 07:31] LABS: Baso % (Auto) 0.3 % (0.0-2.0); Eos # (Auto) 0.1 th/mm3 (0.0-0.4); Eos % (Auto) 1.1 % (0.0-4.0); Hematocrit 34.4 % (35.0-46.0); Hemoglobin 11.1 gm/dL (11.6-15.3); Lymph # (Auto) 0.1 th/mm3 (1.0-4.8); Lymph % (Auto) 1.4 % (9.0-44.0); Mean Corpuscular HGB Conc 32.3 % (32.0-36.0); Mean Corpuscular Hemoglobin 32.2 pg (27.0-34.0); Mean Corpuscular Volume 99.5 fL (80.0-100.0); Mean Platelet Volume 8.6 fL (7.0-11.0); Mono # (Auto) 0.3 th/mm3 (0.0-0.9); Mono % (Auto) 4.3 % (0.0-8.0); Neut # (Auto) 7.5 th/mm3 (1.8-7.7); Neut % (Auto) 92.9 % (16.0-70.0); Platelet Count 79 th/mm3 (150-450); Red Blood Count 3.46 mil/mm3 (4.00-5.30); Red Cell Distribution Width 17.6 % (11.6-17.2); White Blood Count 8.1 th/mm3 (4.0-11.0)
[2018-05-18 07:43] LABS: Alanine Aminotransferase 17 U/L (10-53); Albumin 2.4 g/dL (3.4-5.0); Alkaline Phosphatase 135 U/L (45-117); Anion Gap 10 meq/L (5-15); Aspartate Aminotransferase 31 U/L (15-37); Blood Urea Nitrogen 73 mg/dL (7-18); Calcium 8.4 mg/dL (8.5-10.1); Carbon Dioxide 15.9 meq/L (21.0-32.0); Chloride 106 meq/L (98-107); Glomerular Filtration Rate 6 mL/min (>89); Glucose,Random 102 mg/dL (74-106); Sodium 132 meq/L (136-145); Total Protein 7.2 g/dL (6.4-8.2)
[2018-05-18 07:49] LABS: Potassium 6.9 meq/L (3.5-5.1)
[2018-05-18 08:40] LABS: Lymphocytes 3 % (9-44); Monocytes 2 % (0-8); Platelet Morphology Normal (Normal); Toxic Vacuolation Present
[2018-05-18] MEDS: Lactobacillus Acidophilus/L. Spores Tablet PO SCH ×3 (08:46→22:24)
[2018-05-18] MEDS: Albumin Human 25% Inj 100 ML IV.SIG PRN ×2 (09:16→09:20)
[2018-05-18 11:02] LABS: Hepatitits B Surface Antigen Nonreactive (Nonreactive)
[2018-05-18 11:04] LABS: Hepatitis A IgM Antibody Nonreactive (Nonreactive)
--- NOTE | 2018-05-18 11:05 | P.PNNP ---
Subjective Interval history: Patient is c/o pain in Left arm swollen red, patient seen at dialysis Physical Exam Vital signs: Vital Signs 05/17/18 16:00 05/17/18 20:00 05/17/18 21:07 Temperature 97.5 F L 97.7 F Pulse Rate 97 H 119 H Respiratory Rate 16 18 Blood Pressure 155/67 H 141/65 H Pulse Oximetry 98 99 99 05/18/18 00:00 05/18/18 00:52 05/18/18 01:21 Temperature 98.7 F Pulse Rate 107 H 105 H Respiratory Rate 18 16 Blood Pressure 106/53 L Pulse Oximetry 97 05/18/18 04:00 05/18/18 05:50 05/18/18 08:00 Temperature 98.5 F 99.6 F Pulse Rate 106 H 117 H 106 H Respiratory Rate 18 20 Blood Pressure 109/52 L 115/53 L Pulse Oximetry 96 96 Intake & Output 05/17/18 05/18/18 05/18/18 18:59 06:59 18:59 Intake Total 160 / 160 200 / 200 Output Total 525 / 525 Balance -365 / -365 200 / 200 Weight 73.5 kg Intake: IV 160 / 160 200 / 200 Flexbumin 25% Inj 100 ML @ 60 200 / 200 mls/hr IV.SIG WITH DIALYSIS PRN Rx#:[id number] Calcium Gluconate Inj 1 GM In 110 / 110 NS Inj 100 ML @ 110 mls/hr IV. SIG ONCE ONE Rx#:[id number] Zosyn 2.25 GM Premix 50 ML @ 50 / 50 100 mls/hr IV.SIG Q12H [place] Rx#: [id number] Output: Stool 525 / 525 Other: # Voids 1 Date of Last Bowel Movement 05/18/18 05/18/18 Weight On Admission 58 kg Narrative: GENERAL: Well-nourished, well-developed patient. SKIN: Warm and dry. HEAD: Normocephalic. EYES: No scleral icterus. No injection or drainage. NECK: Supple, trachea midline. No JVD or lymphadenopathy. CARDIOVASCULAR: Tachycardia. RESPIRATORY: Breath sounds equal bilaterally. No accessory muscle use. GASTROINTESTINAL: Abdomen soft, non-tender, nondistended. Colostomy in right lower abdominal EXTREMITIES: Less swollen redness seen inferior portion edematous NEUROLOGICAL: Awake, alert, and oriented x 3. Non-focal. Assessment and Plan - Assessment (1) ESRD on dialysis Code(s): N18.6 - End stage renal disease; Z99.2 - Dependence on renal dialysis Status: Chronic (2) Hypertension Code(s): I10 - Essential (primary) hypertension Status: Chronic Qualifiers: Hypertension type: renovascular hypertension Qualified Code(s): I15.0 - Renovascular hypertension (3) Sepsis Code(s): A41.9 - Sepsis, unspecified organism Status: Acute (4) Cellulitis of left upper arm Code(s): L03.114 - Cellulitis of left upper limb Status: Acute (5) Hyperkalemia Code(s): E87.5 - Hyperkalemia Status: Acute - Plan I have seen her during dialysis, Vancomycin to be given, nephrology manages Vanco dosing in ESRD patients per set protocol and understanding with Pharmacy Continue supportive care Hemodialysis UF 2 L on 1 K her K was 6.9 again patient with cellulitis L AVF.
--- NOTE | 2018-05-18 13:19 | P.CONVS ---
History of Present Illness Service: Vascular surgery Consult date: 05/18/18 Reason for Consult: Left upper extremity cellulitis Primary Care Provider: UNKNOWN Chief Complaint: Left arm swelling History of Present Illness: 77-year-old female with a past medical history of end-stage renal disease who receives hemodialysis via right internal jugular vein permacath. She recently had a revision of her left upper extremity AV graft with interposition PTFE graft. She returns to the hospital with a chief complaint of 5 days history of left upper extremity swelling and redness at the surgery site. She also complains of subjective fevers and chills. She denies any chest pain or shortness of breath. Review of Systems All other systems reviewed negative except as stated in HPI PMFSH - History History Provided By: Patient - Medical History Medical History: Medical History (Last Reviewed 05/17/18 @ 22:04 by Dewayne Yanez MD) Absent parathyroid gland Anemia DVT (deep venous thrombosis) Diverticulitis of colon with perforation End stage renal disease on dialysis History of blood product transfusion Hx of hysterectomy Hypertension Ileostomy in place Pulmonary embolism Vascular dialysis catheter in place - Surgical History Surgical History: Surgical History (Last Reviewed 05/17/18 @ 22:04 by Dewayne Yanez MD) History of arteriovenous graft Hx of colostomy Hx of ileostomy - Family History Family History: Family History (Last Reviewed 05/17/18 @ 22:04 by Dewayne Yanez MD) Son Kidney disease Daughter Kidney disease - Tobacco History Second Hand Smoke Exposure: No Smoking Status: Never smoker - Alcohol History How Often Do You Have a Drink Containing Alcohol: Never - Substance Use History Substance History: No History of Abuse - Travel History Recent Travel in the [place] Within the Last 8 Weeks: No Recent Travel Out of the Country Within the Last 8 Weeks: No - Immunization History Tetanus Immunization: Unsure Hx Influenza Vaccine This Season: Yes Medications and Allergies Active Medications: Active Medications Acetaminophen (Tylenol) 650 mg PO Q4H PRN PRN Reason: Temp > 100.4 Al Hydroxide/Mg Hydroxide (Milk Of Magnestelle Liq) 30 ml PO Q12H PRN PRN Reason: Mild Constipation Clonidine HCl (Catapres) 0.1 mg PO UNSCH PRN PRN Reason: SEE LABEL COMMENTS Diphenhydramine HCl (Benadryl) 25 mg PO UNSCH PRN PRN Reason: SEE LABEL COMMENTS Epoetin Justice (Epogen Inj) 4,000 unit IV.PUSH UNSCH PRN PRN Reason: SEE LABEL COMMENTS Gelatin (Gelfoam 12 Mm/7 Mm Topical) 1 foam TOPICAL PRN PRN PRN Reason: help stop bleeding from site Gentamicin Sulfate (Gentamicin Inj) 20 mg OTHER WITH DIALYSIS PRN PRN Reason: Dwell Gentamycin Lock Heparin Sodium (Porcine) (Heparin Inj) 8,000 units OTHER WITH DIALYSIS PRN PRN Reason: for machine prime Heparin Sodium (Porcine) (Heparin Inj) 1,000 units OTHER WITH DIALYSIS PRN PRN Reason: Dwell Heparin to Fill Catheter Heparin Sodium/Dextrose (Heparin/D5w 25,000 U/250 Ml) 25,000 unit in 250 mls @ 0 mls/hr IV.CONT TITRATE PRN; Protocol PRN Reason: Per Protocol Last Admin: 05/18/18 05:10 Dose: 1,200 units/hr, 12 mls/hr Piperacillin/Tazobactam/Dextrose (Zosyn 2.25 Gm Premix) 50 mls @ 100 mls/hr IV.SIG Q12H [facility] Last Infusion: 05/18/18 04:43 Dose: Infused Albumin Human (Flexbumin 25% Inj) 100 mls @ 60 mls/hr IV.SIG WITH DIALYSIS PRN PRN Reason: hypotension / volume replace Last Infusion: 05/18/18 09:26 Dose: Infused Sodium Chloride (Ns Inj) 1,000 mls @ 0 mls/hr OTHER .Q0M PRN PRN Reason: for prime and rinse back Sodium Chloride (Ns Inj) 1,000 mls @ 200 mls/hr OTHER .Q5H PRN PRN Reason: for dialyzer flush PRN Sodium Chloride (Ns Inj) 1,000 mls @ 0 mls/hr IV.CONT .Q0M PRN PRN Reason: hypotension / volume replace Vancomycin HCl 1,000 mg/ (Sodium Chloride) 250 mls @ 250 mls/hr IV.SIG WITH DIALYSIS [place] Lactobacillus Acidophilus (Lactinex) 1 tab PO TID [facility] Last Admin: 05/18/18 08:46 Dose: Not Given Mannitol (Mannitol Inj) 12.5 gm IV.PUSH UNSCH PRN PRN Reason: hypotension / volume replace Metoprolol Succinate (Toprol Xl) 50 mg PO BID [facility] Last Admin: 05/18/18 08:46 Dose: Not Given Morphine Sulfate (Morphine Inj) 2 mg IV.PUSH Q4H PRN PRN Reason: Pain 3 to 6 Morphine Sulfate (Morphine Inj) 4 mg IV.PUSH Q4H PRN PRN Reason: Pain 7 to 10 Last Admin: 05/18/18 01:33 Dose: 4 mg Nitroglycerin (Nitrostat Sl) 0.4 mg SL Q5M PRN PRN Reason: CHEST PAIN Ondansetron HCl (Zofran Inj) 4 mg IV.PUSH Q6H PRN PRN Reason: NAUSEA OR VOMITING Last Admin: 05/18/18 04:10 Dose: 4 mg Ondansetron HCl (Zofran Inj) 4 mg IV.PUSH UNSCH PRN PRN Reason: NAUSEA OR VOMITING Sodium Chloride (Ns Flush) 5 ml IV.FLUSH PRN PRN PRN Reason: flush each lumen during HD Allergies Allergy/AdvReac Type Severity Reaction Status Date / Time Sulfa (Sulfonamide Allergy Swelling Verified 05/17/18 12:38 Antibiotics) Home Medications Medication Instructions Recorded Confirmed Type tramadol 50 mg PO Q8HR 01/10/18 05/18/18 History metoprolol succinate 50 mg PO BID 02/05/18 05/18/18 History cephalexin [Keflex] 500 mg PO BID 05/17/18 05/18/18 History warfarin 3 mg PO Q OTHER DAY 05/17/18 05/18/18 History warfarin 4 mg PO Q OTHER DAY 05/17/18 05/18/18 History Physical Exam Vital Signs / I&O: Vital Signs 05/17/18 16:00 05/17/18 20:00 05/17/18 21:07 Temperature 97.5 F L 97.7 F Pulse Rate 97 H 119 H Respiratory Rate 16 18 Blood Pressure 155/67 H 141/65 H Pulse Oximetry 98 99 99 05/18/18 00:00 05/18/18 00:52 05/18/18 01:21 Temperature 98.7 F Pulse Rate 107 H 105 H Respiratory Rate 18 16 Blood Pressure 106/53 L Pulse Oximetry 97 05/18/18 04:00 05/18/18 05:50 05/18/18 08:00 Temperature 98.5 F 99.6 F Pulse Rate 106 H 117 H 106 H Respiratory Rate 18 20 Blood Pressure 109/52 L 115/53 L Pulse Oximetry 96 96 Intake & Output 05/17/18 05/18/18 05/18/18 18:59 06:59 18:59 Intake Total 160 / 160 200 / 200 Output Total 525 / 525 1999 Balance -365 / -365 -1800 / -1800 Weight 73.5 kg Intake: IV 160 / 160 200 / 200 Flexbumin 25% Inj 100 ML @ 60 200 / 200 mls/hr IV.SIG WITH DIALYSIS PRN Rx#:[id number] Calcium Gluconate Inj 1 GM In 110 / 110 NS Inj 100 ML @ 110 mls/hr IV. SIG ONCE ONE Rx#:[id number] Zosyn 2.25 GM Premix 50 ML @ 50 / 50 100 mls/hr IV.SIG Q12H [place] Rx#: [id number] Output: Stool 525 / 525 Hemodialysis Amount 1999 Other: # Voids 1 Date of Last Bowel Movement 05/18/18 05/18/18 Weight On Admission 58 kg Neuro: Alert awake oriented x3 Neck: Supple Heart: S1-S2 Lungs: Clear to auscultation bilateral Abdomen: Soft nontender nondistended Vascular: Large nonpulsatile mass with surrounding induration and fluctuation at the surgery site. There is purulent discharge. There is extensive erythema and swelling of the left upper extremity. Plus thrill in the left upper extremity AV graft Multiphasic left radial and ulnar signal. Laboratory Results - last 24 hr 05/17/18 05/18/18 05/18/18 21:20 05:52 05:52 WBC 8.1 RBC 3.46 L Hgb 11.1 L Hct 34.4 L MCV 99.5 MCH 32.2 MCHC 32.3 RDW 17.6 H Plt Count 79 L D MPV 8.6 Prelim Diff (Auto) Slide review pending Neut % (Auto) 92.9 H Lymph % (Auto) 1.4 L [place] % (Auto) 4.3 Eos % (Auto) 1.1 Baso % (Auto) 0.3 Neut # (Auto) 7.5 Lymph # (Auto) 0.1 L [place] # (Auto) 0.3 Eos # (Auto) 0.1 Baso # (Auto) 0.0 WBC Differential Manual diff final Seg Neuts % (Manual) 85 H Band Neuts % (Manual) 10 H Lymphocytes % (Manual) 3 L Monocytes % (Manual) 2 Abs Neuts (Manual) 7.7 Differential Comment . Toxic Vacuolation Present H Platelet Estimate Low L Platelet Morphology Normal Sodium 135 L 132 L Potassium 5.5 H D 6.9 H* D Chloride 109 H 106 Carbon Dioxide 16.8 L 15.9 L Anion Gap 9 10 BUN 70 H 73 H Creatinine 6.69 H 7.16 H Estimated GFR 6 L 6 L Random Glucose 70 L 102 Calcium 8.3 L 8.4 L Total Bilirubin 0.6 AST 31 ALT 17 Alkaline Phosphatase 135 H Total Protein 7.2 Albumin 2.4 L Random Vancomycin 23.0 Hepatitis A IgM Ab Hep Bs Antigen Hep B Core IgM Ab Hep C IgG Ab 05/18/18 09:30 WBC RBC Hgb Hct MCV MCH MCHC RDW Plt Count MPV Prelim Diff (Auto) Neut % (Auto) Lymph % (Auto) [place] % (Auto) Eos % (Auto) Baso % (Auto) Neut # (Auto) Lymph # (Auto) [place] # (Auto) Eos # (Auto) Baso # (Auto) WBC Differential Seg Neuts % (Manual) Band Neuts % (Manual) Lymphocytes % (Manual) Monocytes % (Manual) Abs Neuts (Manual) Differential Comment Toxic Vacuolation Platelet Estimate Platelet Morphology Sodium Potassium Chloride Carbon Dioxide Anion Gap BUN Creatinine Estimated GFR Random Glucose Calcium Total Bilirubin AST ALT Alkaline Phosphatase Total Protein Albumin Random Vancomycin Hepatitis A IgM Ab Nonreactive Hep Bs Antigen Nonreactive Hep B Core IgM Ab Nonreactive Hep C IgG Ab Nonreactive Assessment and Plan - Plan Left upper extremity abscess Possible graft infection Patient is currently on broad-spectrum antibiotics We will obtain blood cultures We will take the patient urgently to the operating room for incision and drainage and possible graft excision. Risk benefits and alternatives were explained to her and she agrees to the procedure Thank you for allowing me to participate in this patient care Jameson Omalley [facility] [phone]
[2018-05-18] MEDS ORDERED: Heparin - SQ 10,000 UNITS/ML Vial ONE (14:44)
[2018-05-18 14:51] LABS: Calcium 8.2 mg/dL (8.5-10.1); Carbon Dioxide 27.9 meq/L (21.0-32.0); Potassium 3.7 meq/L (3.5-5.1)
--- NOTE | 2018-05-18 15:00 | P.PNADD ---
Addendum to Inpatient Note Reason for Addendum: Additional Documentation Additional information: Attempted to see to the multiple times. She has been in dialysis and went emergently to the OR. Will follow up.
[2018-05-18] MEDS ORDERED: Phenylephrine/NS 1000 MCG/10ML Syringe IV.PUSH ONE (15:09)
[2018-05-18] MEDS ORDERED: Sodium Chlor 0.9% Inj 500 ML IV.CONT ONE (15:09)
[2018-05-18] MEDS ORDERED: Glycopyrrolate Inj 1 MG/5 ML Syringe IV.PUSH ONE (15:09)
[2018-05-18] MEDS ORDERED: Lidocaine PF 1% Inj 5 ML Syringe OTHER ONE (15:09)
[2018-05-18] MEDS ORDERED: Neostigmine Inj 5 MG/5 ML Syringe IV.PUSH ONE (15:09)
[2018-05-18] MEDS ORDERED: Esmolol Bolus Inj 100 MG/10 ML Vial IV.PUSH ONE (15:09)
[2018-05-18] MEDS ORDERED: Vancomycin Inj 1,000 MG in Sodium Chlor 0.9% Inj 250 ML IV.SIG SCH (16:00)
[2018-05-18] MEDS ORDERED: Protamine Sulfate Inj 50 MG/5 ML Vial ONE ×2 (16:44→17:02)
[2018-05-18 17:43] LABS: Hematocrit 26.1 % (35.0-46.0); Mean Corpuscular HGB Conc 34.6 % (32.0-36.0); Mean Corpuscular Hemoglobin 32.6 pg (27.0-34.0); Mean Corpuscular Volume 94.3 fL (80.0-100.0); Mean Platelet Volume 8.6 fL (7.0-11.0); Platelet Count 90 th/mm3 (150-450); Red Blood Count 2.76 mil/mm3 (4.00-5.30); Red Cell Distribution Width 17.2 % (11.6-17.2); White Blood Count 9.9 th/mm3 (4.0-11.0)
[2018-05-18] MEDS ORDERED: SODIUM CHLOR 0.9% IV.SIG SCH (18:00)
[2018-05-18] MEDS ORDERED: DESMOPRESSIN IV.SIG SCH (18:00)
--- NOTE | 2018-05-18 18:10 | P.OP ---
Preoperative Diagnosis: Left upper extremity abscess Postoperative Diagnosis: Left upper extremity seroma Date of procedure: 05/18/18 Procedure: #1 incision and drainage of a left axillary seroma #2 incision and drainage of the left arm seroma Anesthesia: ELVIRA Surgeon: Jameson Omalley MD Estimated blood loss (mL): 400 Operation and Findings: Findings #1 symptomatic left arm and eft axillary large seroma. There is no evidence of infection intraoperatively. #2 I obtained intraoperative Gram stain that was negative for organisms. #3 I will attempt left upper extremity AV graft preservation. will await final culture, patient may need graft explantation. Description of the procedure The patient was taken to the operating room, laid supine on the OR table. After general trach anesthesia the patient was prepped and draped in the standard sterile fashion. Timeout was called with all members in the OR in agreement. An incision was made in the left arm and dissection was taken down through the subcutaneous tissues electrocautery. The proximal inflow of the AV graft was identified and proximal control was obtained. No attention was turned to the arm fluid collection. The incision was made and dissection was taken down through the subcutaneous tissues electrocautery. The fluid collection was entered and a large amount of serous fluid that was blood-tinged was obtained. There is no purulent discharge identified into the cavity. The seroma capsule was excised. Cultures were obtained and sent for permanent cultures and Gram stain. Hemostasis was achieved. Now attention was turned to the left axillary fluid collection. The previously healed scar was reopened. The fluid was drained and was noted to be serous. The seroma capsule was excised. And hemostasis achieved. There is extensive oozing was noted throughout the whole procedure. Hemostasis was achieved using. 2 #19 NATHAN drain placed into the wounds and brought through the skin using a different stab wound and secured using a nylon suture. The wound was closed in multiple layers of Vicryl suture followed by nylon suture. Sterile dressing and a compression dressing was applied. There was a good thrill into the AV graft. There is a palpable radial pulse at the end of the procedure. The patient tolerated the procedure well and was taken to recovery unit in stable condition. Conclusion 77-year-old female status post left upper extremity AV graft revision. She was admitted to the hospital with a possible AV graft infection. There is a small amount of purulent discharge on physical exam but intraoperatively there were 2 large seromas with no evidence of infection. I drained the seroma and will attempt graft preservation. I will follow with the final culture to determine if graft explantation is needed.
[2018-05-18 18:15] LABS: Calcium 7.2 mg/dL (8.5-10.1); Carbon Dioxide 30.1 meq/L (21.0-32.0); Potassium 3.9 meq/L (3.5-5.1)
[2018-05-18 18:28] LABS: Total Protein 6.7 g/dL (6.4-8.2)
[2018-05-18 18:35] LABS: Calcium-Albumin Corrected 7.4 mg/dL (8.5-10.1)
[2018-05-18] MEDS ORDERED: fentaNYL Citrate Inj 100 MCG/2 ML Ampul ONE ×2 (18:37)
[2018-05-18] MEDS ORDERED: Albumin Human 5% Inj 500 ML IV.SIG ONE (19:00)
[2018-05-18] MEDS ORDERED: Albumin Human 5% Inj 250 ML IV.SIG ONE (20:00)
[2018-05-19] MEDS: HYDROmorphone PF Inj 1 MG/ML Ampul IV.PUSH PRN (01:00)
[2018-05-19] MEDS: Piperacil/Tazo 2.25 GM Premix 50 ML IV.SIG SCH ×2 (05:00→16:12)
[2018-05-19] MEDS: Lactobacillus Acidophilus/L. Spores Tablet PO SCH ×3 (08:08→17:11)
--- NOTE | 2018-05-19 10:29 | P.PNVS ---
Subjective Post Op Day #: 1 Procedure: incision and drainage of L axillary/L arm seroma Subjective/Hospital Course: 77/F s/p I&D Left axillary/arm seroma POD 1 Pain controlled this am Pt c/o mild incisional discomfort Dressing I/C/D Objective Vital Signs / I&O: Vital Signs 05/18/18 12:00 05/18/18 17:02 05/18/18 18:25 Temperature 99.2 F 97.7 F Pulse Rate 108 H 124 H Respiratory Rate 20 16 Blood Pressure 102/54 L 71/44 L Pulse Oximetry 96 96 97 05/18/18 18:30 05/18/18 18:35 05/18/18 18:45 Temperature Pulse Rate 116 H 118 H 122 H Respiratory Rate 14 16 18 Blood Pressure 86/47 L 79/40 L 75/39 L Pulse Oximetry 98 98 99 05/18/18 19:00 05/18/18 19:15 05/18/18 19:30 Temperature Pulse Rate 113 H 107 H 105 H Respiratory Rate 21 16 19 Blood Pressure 74/39 L 81/45 L 78/39 L Pulse Oximetry 99 99 100 05/18/18 19:45 05/18/18 20:00 05/18/18 20:05 Temperature 98.8 F Pulse Rate 106 H 109 H Respiratory Rate 15 17 Blood Pressure 82/43 L 88/44 L Pulse Oximetry 100 100 100 05/18/18 20:15 05/18/18 20:29 05/18/18 20:30 Temperature 98.8 F Pulse Rate 108 H 112 H 107 H Respiratory Rate 18 20 19 Blood Pressure 88/43 L 88/43 L 85/43 L Pulse Oximetry 100 100 100 05/18/18 20:45 05/18/18 21:00 05/18/18 21:06 Temperature 99.2 F Pulse Rate 108 H 108 H Respiratory Rate 17 18 Blood Pressure 86/42 L 88/44 L Pulse Oximetry 100 100 100 05/18/18 21:15 05/18/18 21:27 05/18/18 21:30 Temperature 99.1 F 99.1 F Pulse Rate 108 H 108 H 109 H Respiratory Rate 20 22 20 Blood Pressure 89/47 L 87/46 L 87/46 L Pulse Oximetry 98 98 05/18/18 21:45 05/18/18 22:23 05/19/18 00:00 Temperature 99.3 F 99.3 F Pulse Rate 109 H 107 H 118 H Respiratory Rate 20 17 18 Blood Pressure 95/55 L 99/51 L 99/57 L Pulse Oximetry 100 95 96 05/19/18 04:00 05/19/18 05:27 05/19/18 08:00 Temperature 99.4 F 99.1 F Pulse Rate 103 H 109 H Respiratory Rate 16 17 20 Blood Pressure 100/53 L 166/95 H Pulse Oximetry 95 98 05/19/18 09:00 05/19/18 09:11 Temperature Pulse Rate 108 H Respiratory Rate Blood Pressure 101/53 L Pulse Oximetry Intake & Output 05/18/18 05/19/18 05/19/18 18:59 06:59 18:59 Intake Total 950 / 950 1945.5 / 1945.5 Output Total 2400 / 2400 50 / 50 Balance -1450 / -1450 1895.5 / 1895.5 Weight 58.5 kg Intake: IV 250 / 250 855.5 / 855.5 Flexbumin 25% Inj 100 ML @ 60 200 / 200 mls/hr IV.SIG WITH DIALYSIS PRN Rx#:[id number] Buminate 5% Inj 250 ML @ 250 250 / 250 mls/hr IV.SIG ONCE ONE Rx#: [id number] Alburx 5% Inj 500 ML @ 250 mls/ 500 / 500 hr IV.SIG STAT ONE Rx#:[id number] DDAVP Inj 22 MCG In NS Inj 50 55.5 / 55.5 ML @ 222.05 mls/hr IV.SIG UNSCH X1 [facility] Rx#:[id number] Zosyn 2.25 GM Premix 50 ML @ 50 / 50 50 / 50 100 mls/hr IV.SIG Q12H [facility] Rx#: [id number] Oral 240 / 240 Anesthesia Amount 700 / 700 200 / 200 Other 250 / 250 Rbc As-3 Leukoreduced Unit 250 / 250 [id number] Intake (Blood Product) Amt 400 / 400 Rbc As-3 Leukoreduced Unit 400 / 400 [id number] Output: Hemodialysis Amount 1999 Estimated Blood Loss 400 / 400 Stool Amount (Stoma) 50 / 50 Right Lower Abdomen 50 / 50 Other: Other Intake Source Rbc As-3 Leukoreduced Unit Saline Solution [id number] Date of Last Bowel Movement 05/18/18 05/18/18 05/18/18 Exam: Incisions to L arm intact with sutures L arm w/ NATHAN drains x2 in place L UE warm w/ motor intact LEFT Radial pulse- multiphasic via Doppler Laboratory Results - last 24 hr 05/18/18 05/18/18 05/18/18 09:30 13:57 13:57 WBC RBC Hgb Hct MCV MCH MCHC RDW Plt Count MPV APTT 151.5 H* D Sodium 137 Potassium 3.7 D Chloride 100 Carbon Dioxide 27.9 D Anion Gap 9 BUN 24 H Creatinine 3.30 H Estimated GFR 14 L Random Glucose 102 Calcium 8.2 L Prot Corrected Calcium Total Protein Random Vancomycin Hepatitis A IgM Ab Nonreactive Hep Bs Antigen Nonreactive Hep B Core IgM Ab Nonreactive Hep C IgG Ab Nonreactive Blood Type Antibody Screen MTS Gel Crossmatch Bld Prod Order Comment 05/18/18 05/18/18 05/18/18 17:13 17:13 17:13 WBC 9.9 RBC 2.76 L Hgb 9.0 L D Hct 26.1 L MCV 94.3 D MCH 32.6 MCHC 34.6 RDW 17.2 Plt Count 90 L MPV 8.6 APTT 38.9 H D Sodium 138 Potassium 3.9 Chloride 103 Carbon Dioxide 30.1 Anion Gap 5 BUN 25 H Creatinine 3.45 H Estimated GFR 13 L Random Glucose 120 H Calcium 7.2 L* D Prot Corrected Calcium 7.4 L* Total Protein 6.7 Random Vancomycin Hepatitis A IgM Ab Hep Bs Antigen Hep B Core IgM Ab Hep C IgG Ab Blood Type Antibody Screen MTS Gel Crossmatch Bld Prod Order Comment 05/18/18 05/18/18 05/19/18 19:37 19:37 04:28 WBC RBC Hgb Hct MCV MCH MCHC RDW Plt Count MPV APTT Sodium Potassium Chloride Carbon Dioxide Anion Gap BUN Creatinine Estimated GFR Random Glucose Calcium Prot Corrected Calcium Total Protein Random Vancomycin 22.4 Hepatitis A IgM Ab Hep Bs Antigen Hep B Core IgM Ab Hep C IgG Ab Blood Type B Positive Antibody Screen Positive H MTS Gel Crossmatch See Detail See Detail Bld Prod Order Comment 05/19/18 07:38 WBC RBC Hgb Hct MCV MCH MCHC RDW Plt Count MPV APTT 35.3 H Sodium Potassium Chloride Carbon Dioxide Anion Gap BUN Creatinine Estimated GFR Random Glucose Calcium Prot Corrected Calcium Total Protein Random Vancomycin Hepatitis A IgM Ab Hep Bs Antigen Hep B Core IgM Ab Hep C IgG Ab Blood Type Antibody Screen MTS Gel Crossmatch Bld Prod Order Comment Microbiology 05/18/18 16:15 Gram Stain - Final Tissue - Other Assessment and Plan - Plan 77/F s/p Left upper extremity I&D (seroma) Incisions look good UE warm w/ motor intact Plan Continue broad-spectrum antibiotics Awaiting Cultures- Pending Continue pain control hold off heparin drip Krista Le NP [email or web address] [phone]
--- NOTE | 2018-05-19 11:27 | P.PNIM ---
Subjective Interval history: Patient reports she is feeling tired but no acute issues. Pain at the surgical site is controlled with pain medications. She did states she has no feelings in the left hand since the first surgery. Physical Exam Vital signs: Vital Signs 05/18/18 12:00 05/18/18 17:02 05/18/18 18:25 Temperature 99.2 F 97.7 F Pulse Rate 108 H 124 H Respiratory Rate 20 16 Blood Pressure 102/54 L 71/44 L Pulse Oximetry 96 96 97 05/18/18 18:30 05/18/18 18:35 05/18/18 18:45 Temperature Pulse Rate 116 H 118 H 122 H Respiratory Rate 14 16 18 Blood Pressure 86/47 L 79/40 L 75/39 L Pulse Oximetry 98 98 99 05/18/18 19:00 05/18/18 19:15 05/18/18 19:30 Temperature Pulse Rate 113 H 107 H 105 H Respiratory Rate 21 16 19 Blood Pressure 74/39 L 81/45 L 78/39 L Pulse Oximetry 99 99 100 05/18/18 19:45 05/18/18 20:00 05/18/18 20:05 Temperature 98.8 F Pulse Rate 106 H 109 H Respiratory Rate 15 17 Blood Pressure 82/43 L 88/44 L Pulse Oximetry 100 100 100 05/18/18 20:15 05/18/18 20:29 05/18/18 20:30 Temperature 98.8 F Pulse Rate 108 H 112 H 107 H Respiratory Rate 18 20 19 Blood Pressure 88/43 L 88/43 L 85/43 L Pulse Oximetry 100 100 100 05/18/18 20:45 05/18/18 21:00 05/18/18 21:06 Temperature 99.2 F Pulse Rate 108 H 108 H Respiratory Rate 17 18 Blood Pressure 86/42 L 88/44 L Pulse Oximetry 100 100 100 05/18/18 21:15 05/18/18 21:27 05/18/18 21:30 Temperature 99.1 F 99.1 F Pulse Rate 108 H 108 H 109 H Respiratory Rate 20 22 20 Blood Pressure 89/47 L 87/46 L 87/46 L Pulse Oximetry 98 98 05/18/18 21:45 05/18/18 22:23 05/19/18 00:00 Temperature 99.3 F 99.3 F Pulse Rate 109 H 107 H 118 H Respiratory Rate 20 17 18 Blood Pressure 95/55 L 99/51 L 99/57 L Pulse Oximetry 100 95 96 05/19/18 04:00 05/19/18 05:27 05/19/18 08:00 Temperature 99.4 F 99.1 F Pulse Rate 103 H 109 H Respiratory Rate 16 17 20 Blood Pressure 100/53 L 166/95 H Pulse Oximetry 95 98 05/19/18 09:00 05/19/18 09:11 05/19/18 10:47 Temperature Pulse Rate 108 H Respiratory Rate Blood Pressure 101/53 L Pulse Oximetry 95 Intake & Output 05/18/18 05/19/18 05/19/18 18:59 06:59 18:59 Intake Total 950 / 950 1945.5 / 1945.5 Output Total 2400 / 2400 50 / 50 Balance -1450 / -1450 1895.5 / 1895.5 Weight 58.5 kg Intake: IV 250 / 250 855.5 / 855.5 Flexbumin 25% Inj 100 ML @ 60 200 / 200 mls/hr IV.SIG WITH DIALYSIS PRN Rx#:[id number] Buminate 5% Inj 250 ML @ 250 250 / 250 mls/hr IV.SIG ONCE ONE Rx#: [id number] Alburx 5% Inj 500 ML @ 250 mls/ 500 / 500 hr IV.SIG STAT ONE Rx#:[id number] DDAVP Inj 22 MCG In NS Inj 50 55.5 / 55.5 ML @ 222.05 mls/hr IV.SIG UNSCH X1 [facility] Rx#:[id number] Zosyn 2.25 GM Premix 50 ML @ 50 / 50 50 / 50 100 mls/hr IV.SIG Q12H [facility] Rx#: [id number] Oral 240 / 240 Anesthesia Amount 700 / 700 200 / 200 Other 250 / 250 Rbc As-3 Leukoreduced Unit 250 / 250 [id number] Intake (Blood Product) Amt 400 / 400 Rbc As-3 Leukoreduced Unit 400 / 400 [id number] Output: Hemodialysis Amount 1999 / 1999 Estimated Blood Loss 400 / 400 Stool Amount (Stoma) 50 / 50 Right Lower Abdomen 50 / 50 Other: Other Intake Source Rbc As-3 Leukoreduced Unit Saline Solution [id number] Date of Last Bowel Movement 05/18/18 05/18/18 05/18/18 Narrative: GENERAL: This is a well-nourished, well-developed patient, in no apparent distress. CARDIOVASCULAR: Normal rate and regular rhythm without murmurs, gallops, or rubs. RESPIRATORY: Good respiratory efforts. Breath sounds equal and clear to auscultation bilaterally. GASTROINTESTINAL: Abdomen soft, non-tender, non-distended. Normal active bowel sounds MUSCULOSKELETAL: Left arm is wrapped with postsurgical dressing and Lio. There is a drain with serosanguineous fluid. Range of motion of the left hand and fingers intact but patient endorsed numbness. NEURO: Alert & Oriented x4 to person, place, time, situation. Moves all ext x4 PSYCH: Appropriate mood and affect. Results - Labs CBC & Chem 7: 05/20/18 05:20 05/20/18 05:20 Laboratory Results - last 24 hr 05/18/18 05/18/18 05/18/18 13:57 13:57 17:13 WBC 9.9 RBC 2.76 L Hgb 9.0 L D Hct 26.1 L MCV 94.3 D MCH 32.6 MCHC 34.6 RDW 17.2 Plt Count 90 L MPV 8.6 APTT 151.5 H* D Sodium 137 Potassium 3.7 D Chloride 100 Carbon Dioxide 27.9 D Anion Gap 9 BUN 24 H Creatinine 3.30 H Estimated GFR 14 L Random Glucose 102 Calcium 8.2 L Prot Corrected Calcium Total Protein Random Vancomycin Blood Type Antibody Screen MTS Gel Crossmatch Bld Prod Order Comment 05/18/18 05/18/18 05/18/18 17:13 17:13 19:37 WBC RBC Hgb Hct MCV MCH MCHC RDW Plt Count MPV APTT 38.9 H D Sodium 138 Potassium 3.9 Chloride 103 Carbon Dioxide 30.1 Anion Gap 5 BUN 25 H Creatinine 3.45 H Estimated GFR 13 L Random Glucose 120 H Calcium 7.2 L* D Prot Corrected Calcium 7.4 L* Total Protein 6.7 Random Vancomycin Blood Type B Positive Antibody Screen Positive H MTS Gel Crossmatch See Detail Bld Prod Order Comment 05/18/18 05/19/18 05/19/18 19:37 04:28 07:38 WBC RBC Hgb Hct MCV MCH MCHC RDW Plt Count MPV APTT 35.3 H Sodium Potassium Chloride Carbon Dioxide Anion Gap BUN Creatinine Estimated GFR Random Glucose Calcium Prot Corrected Calcium Total Protein Random Vancomycin 22.4 Blood Type Antibody Screen MTS Gel Crossmatch See Detail Bld Prod Order Comment Microbiology 05/18/18 16:15 Tissue - Other Gram Stain - Final Assessment and Plan - Plan 77-year-old female admitted secondary to left arm graft infection and cellulitis Left arm graft infection Left arm cellulitis Appreciate vascular surgery following. Exam on admission showed a small amount of purulent discharge. Intraoperatively there were 2 large seromas that were drained. Nephrology following. Continue broad-spectrum antibiotics with Zosyn and vancomycin. Vancomycin dosing per nephrology. Follow cultures. End-stage renal disease Chronic dialysis dependence Nephrology following Continue hemodialysis Chronic anemia Likely related to chronic disease Follow CBC Hypertension Continue baseline treatment Follow blood pressures Adjust treatments as needed DVT (deep venous thrombosis) Pulmonary embolism On Heparin. Will need to put back on Coumadin after all procedures History of diverticulosis History of bowel perforation related to diverticulitis Ileostomy in place Supportive care Follow clinically DVT prophylaxis Heparin
[2018-05-19] MEDS: Heparin - SQ 10,000 UNITS/ML Vial SQ SCH ×2 (14:07→22:12)
[2018-05-20] MEDS: Piperacil/Tazo 2.25 GM Premix 50 ML IV.SIG SCH ×2 (03:36→18:00)
[2018-05-20] MEDS: Heparin - SQ 10,000 UNITS/ML Vial SQ SCH ×3 (05:31→21:00)
[2018-05-20 06:15] LABS: Baso % (Auto) 0.5 % (0.0-2.0); Eos # (Auto) 0.6 th/mm3 (0.0-0.4); Eos % (Auto) 10.2 % (0.0-4.0); Hematocrit 25.7 % (35.0-46.0); Hemoglobin 8.8 gm/dL (11.6-15.3); Lymph # (Auto) 0.9 th/mm3 (1.0-4.8); Lymph % (Auto) 15.1 % (9.0-44.0); Mean Corpuscular Hemoglobin 31.5 pg (27.0-34.0); Mean Corpuscular Volume 92.6 fL (80.0-100.0); Mean Platelet Volume 9.8 fL (7.0-11.0); Mono # (Auto) 0.3 th/mm3 (0.0-0.9); Mono % (Auto) 4.9 % (0.0-8.0); Neut # (Auto) 4.3 th/mm3 (1.8-7.7); Neut % (Auto) 69.3 % (16.0-70.0); Platelet Count 78 th/mm3 (150-450); Red Blood Count 2.78 mil/mm3 (4.00-5.30); Red Cell Distribution Width 19.1 % (11.6-17.2); White Blood Count 6.2 th/mm3 (4.0-11.0)
[2018-05-20 06:32] LABS: Alanine Aminotransferase 14 U/L (10-53); Alkaline Phosphatase 95 U/L (45-117); Anion Gap 10 meq/L (5-15); Aspartate Aminotransferase 22 U/L (15-37); Blood Urea Nitrogen 51 mg/dL (7-18); Calcium 8.6 mg/dL (8.5-10.1); Carbon Dioxide 22.5 meq/L (21.0-32.0); Chloride 101 meq/L (98-107); Glomerular Filtration Rate 6 mL/min (>89); Glucose,Random 93 mg/dL (74-106); Potassium 4.5 meq/L (3.5-5.1); Sodium 133 meq/L (136-145); Total Protein 7.1 g/dL (6.4-8.2); Vancomycin,Random 19.8 Comment
[2018-05-20 08:37] LABS: Platelet Morphology Normal (Normal)
--- NOTE | 2018-05-20 10:23 | P.PNNP ---
Subjective Interval history: Patient is seen during dialysis, pain persists left arm which is wrapped Physical Exam Vital signs: Vital Signs 05/19/18 10:47 05/19/18 10:58 05/19/18 11:44 Temperature Pulse Rate 90 88 Respiratory Rate Blood Pressure Pulse Oximetry 95 05/19/18 11:45 05/19/18 12:00 05/19/18 13:00 Temperature 99.2 F Pulse Rate 93 H 95 H 91 H Respiratory Rate 20 Blood Pressure 90/55 L Pulse Oximetry 95 05/19/18 14:00 05/19/18 15:00 05/19/18 16:00 Temperature 98.9 F Pulse Rate 93 H 89 93 H Respiratory Rate 20 Blood Pressure 113/55 L Pulse Oximetry 96 05/19/18 17:00 05/19/18 18:00 05/19/18 19:00 Temperature Pulse Rate 103 H 95 H 96 H Respiratory Rate Blood Pressure Pulse Oximetry 05/19/18 20:00 05/19/18 21:00 05/19/18 22:00 Temperature 97.4 F L Pulse Rate 87 93 H 95 H Respiratory Rate 17 Blood Pressure 139/63 Pulse Oximetry 100 05/19/18 23:00 05/20/18 00:00 05/20/18 01:00 Temperature 97.8 F Pulse Rate 85 87 78 Respiratory Rate 18 Blood Pressure 103/59 L Pulse Oximetry 98 05/20/18 02:00 05/20/18 03:00 05/20/18 03:33 Temperature 97.9 F Pulse Rate 81 81 77 Respiratory Rate 17 Blood Pressure 107/58 L Pulse Oximetry 99 05/20/18 05:00 05/20/18 05:40 05/20/18 07:27 Temperature Pulse Rate 80 81 Respiratory Rate 17 Blood Pressure Pulse Oximetry 05/20/18 07:31 05/20/18 08:00 05/20/18 08:40 Temperature 97.5 F L Pulse Rate 81 81 Respiratory Rate 16 16 Blood Pressure 98/51 L Pulse Oximetry 98 Intake & Output 05/19/18 05/20/18 05/20/18 18:59 06:59 18:59 Intake Total 1010 / 1010 290 / 290 Output Total 2059 / 2059 572 / 572 Balance -1050 / -1050 -282 / -282 Weight 58 kg Intake: IV 50 / 50 50 / 50 Zosyn 2.25 GM Premix 50 ML @ 50 / 50 50 / 50 100 mls/hr IV.SIG Q12H [facility] Rx#: [id number] Oral 960 / 960 240 / 240 Output: Urine 500 / 500 550 / 550 Stool Amount (Stoma) 1500 / 1500 Right Lower Abdomen 1500 / 1500 Wound Drainage 60 / 60 # 1 Left Upper Arm NATHAN Drain 40 / 40 15 / 15 # 2 Left Arm NATHAN Drain 20 / Other: Date of Last Bowel Movement 05/18/18 05/20/18 Narrative: GENERAL: This is a well-nourished, well-developed patient, in no apparent distress. CARDIOVASCULAR: Normal rate and regular rhythm without murmurs, gallops, or rubs. RESPIRATORY: Good respiratory efforts. Breath sounds equal and clear to auscultation bilaterally. GASTROINTESTINAL: Abdomen soft, non-tender, non-distended. Normal active bowel sounds MUSCULOSKELETAL: Left arm is wrapped with postsurgical dressing and Lio. There is a drain with serosanguineous fluid. Range of motion of the left hand and fingers intact but patient endorsed numbness. NEURO: Alert & Oriented x4 to person, place, time, situation. Moves all ext x4 PSYCH: Appropriate mood and affect. Assessment and Plan - Assessment (1) ESRD on dialysis Code(s): N18.6 - End stage renal disease; Z99.2 - Dependence on renal dialysis Status: Chronic (2) Hypertension Code(s): I10 - Essential (primary) hypertension Status: Chronic Qualifiers: Hypertension type: renovascular hypertension Qualified Code(s): I15.0 - Renovascular hypertension (3) Sepsis Code(s): A41.9 - Sepsis, unspecified organism Status: Acute (4) Cellulitis of left upper arm Code(s): L03.114 - Cellulitis of left upper limb Status: Acute (5) Hyperkalemia Code(s): E87.5 - Hyperkalemia Status: Acute - Plan Patient is seen during hemodialysis she is tolerating it well Left arm is wrapped, AV graft was preserved, seroma was drained cultures are so far negative Hemodialysis proceedings noted 2 L of ultrafiltration today. Potassium is normal.
[2018-05-20] MEDS: Vancomycin Inj 1,000 MG in Sodium Chlor 0.9% Inj 250 ML IV.SIG SCH (10:26)
[2018-05-20] MEDS: Heparin 10,000 UNITS/10 ML Vial (for IV use) OTHER PRN (10:26)
[2018-05-20] MEDS: HYDROmorphone PF Inj 1 MG/ML Ampul IV.PUSH PRN (10:28)
--- NOTE | 2018-05-20 11:12 | P.PNVS ---
Subjective Post Op Day #: 2 Procedure: incision and drainage of L axillary/L arm seroma Subjective/Hospital Course: 77/F s/p I&D Left axillary/arm seroma POD 1 Left upper extremity pain is resolving Objective Vital Signs / I&O: Vital Signs 05/19/18 11:44 05/19/18 11:45 05/19/18 12:00 Temperature 99.2 F Pulse Rate 88 93 H 95 H Respiratory Rate 20 Blood Pressure 90/55 L Pulse Oximetry 95 05/19/18 13:00 05/19/18 14:00 05/19/18 15:00 Temperature Pulse Rate 91 H 93 H 89 Respiratory Rate Blood Pressure Pulse Oximetry 05/19/18 16:00 05/19/18 17:00 05/19/18 18:00 Temperature 98.9 F Pulse Rate 93 H 103 H 95 H Respiratory Rate 20 Blood Pressure 113/55 L Pulse Oximetry 96 05/19/18 19:00 05/19/18 20:00 05/19/18 21:00 Temperature 97.4 F L Pulse Rate 96 H 87 93 H Respiratory Rate 17 Blood Pressure 139/63 Pulse Oximetry 100 05/19/18 22:00 05/19/18 23:00 05/20/18 00:00 Temperature 97.8 F Pulse Rate 95 H 85 87 Respiratory Rate 18 Blood Pressure 103/59 L Pulse Oximetry 98 05/20/18 01:00 05/20/18 02:00 05/20/18 03:00 Temperature Pulse Rate 78 81 81 Respiratory Rate Blood Pressure Pulse Oximetry 05/20/18 03:33 05/20/18 05:00 05/20/18 05:40 Temperature 97.9 F Pulse Rate 77 80 81 Respiratory Rate 17 Blood Pressure 107/58 L Pulse Oximetry 99 05/20/18 07:27 05/20/18 07:31 05/20/18 08:00 Temperature Pulse Rate 81 Respiratory Rate 17 16 Blood Pressure Pulse Oximetry 05/20/18 08:40 05/20/18 09:00 05/20/18 10:00 Temperature 97.5 F L Pulse Rate 81 80 78 Respiratory Rate 16 Blood Pressure 98/51 L Pulse Oximetry 98 Intake & Output 05/19/18 05/20/18 05/20/18 18:59 06:59 18:59 Intake Total 1010 / 1010 290 / 290 Output Total 2060 / 2060 572 / 572 Balance -1050 / -1050 -282 / -282 Weight 58 kg Intake: IV 50 / 50 50 / 50 Zosyn 2.25 GM Premix 50 ML @ 50 / 50 50 / 50 100 mls/hr IV.SIG Q12H [facility] Rx#: [id number] Oral 960 / 960 240 / 240 Output: Urine 500 / 500 550 / 550 Stool Amount (Stoma) 1500 / 1500 Right Lower Abdomen 1500 / 1500 Wound Drainage 60 / 60 # 1 Left Upper Arm NATHAN Drain 40 / 40 # 2 Left Arm NATHAN Drain Other: Date of Last Bowel Movement 05/18/18 05/20/18 Exam: Left upper extremity wound is clean dry intact, NATHAN with serosanguineous output Palpable left radial pulse Laboratory Results - last 24 hr 05/20/18 05/20/18 05/20/18 05:20 05:20 10:13 WBC 6.2 RBC 2.78 L Hgb 8.8 L Hct 25.7 L MCV 92.6 MCH 31.5 MCHC 34.0 RDW 19.1 H Plt Count 78 L MPV 9.8 Prelim Diff (Auto) Slide review pending Neut % (Auto) 69.3 Lymph % (Auto) 15.1 [place] % (Auto) 4.9 Eos % (Auto) 10.2 H Baso % (Auto) 0.5 Neut # (Auto) 4.3 Lymph # (Auto) 0.9 L [place] # (Auto) 0.3 Eos # (Auto) 0.6 H Baso # (Auto) 0.0 WBC Differential . Diff Scan Auto diff confirmed Differential Comment . Platelet Estimate Low L Platelet Morphology Normal Sodium 133 L Potassium 4.5 Chloride 101 Carbon Dioxide 22.5 Anion Gap 10 BUN 51 H Creatinine 6.33 H Estimated GFR 6 L POC Glucose 86 Random Glucose 93 Calcium 8.6 D Total Bilirubin 0.4 AST 22 ALT 14 Alkaline Phosphatase 95 Total Protein 7.1 Albumin 3.0 L D Random Vancomycin 19.8 Microbiology 05/19/18 04:28 Aerobic Blood Culture - Preliminary Blood - Peripheral No growth in 1 day Anaerobic Blood Culture - Preliminary No growth in 1 day 05/19/18 04:25 Aerobic Blood Culture - Preliminary Blood - Peripheral No growth in 1 day Anaerobic Blood Culture - Preliminary No growth in 1 day 05/18/18 16:07 Gram Stain - Final Wound - Other Wound Culture - Preliminary No growth in 24 hours 05/18/18 16:07 Acid Fast Bacilli Smear - Final Wound - Other No acid fast bacilli seen 05/18/18 16:15 Gram Stain - Final Wound - Arm Wound Culture - Preliminary No growth in 24 hours 05/18/18 16:15 Gram Stain - Final Tissue - Other Wound Culture - Preliminary No growth in 24 hours Assessment and Plan - Plan 77/F s/p Left upper extremity I&D (seroma) May start heparin drip Blood cultures, wound cultures negative to date. We will follow-up with final cultures and plan treatment Continue with local wound care
[2018-05-20] MEDS: Lactobacillus Acidophilus/L. Spores Tablet PO SCH ×3 (13:10→18:01)
--- NOTE | 2018-05-20 13:49 | P.PNWCN ---
Wound Care Nurse Consult Additional information: Attempted to see patient at 1130, patient is in Dialysis. Will attempt to see patient again at a later time.
--- NOTE | 2018-05-20 17:17 | P.PNIM ---
Subjective Interval history: Patient seen during dialysis. She reports she is feeling tired. No fevers or chills. Physical Exam Vital signs: Vital Signs 05/19/18 18:00 05/19/18 19:00 05/19/18 20:00 Temperature 97.4 F L Pulse Rate 95 H 96 H 87 Respiratory Rate 17 Blood Pressure 139/63 Pulse Oximetry 100 05/19/18 21:00 05/19/18 22:00 05/19/18 23:00 Temperature Pulse Rate 93 H 95 H 85 Respiratory Rate Blood Pressure Pulse Oximetry 05/20/18 00:00 05/20/18 01:00 05/20/18 02:00 Temperature 97.8 F Pulse Rate 87 78 81 Respiratory Rate 18 Blood Pressure 103/59 L Pulse Oximetry 98 05/20/18 03:00 05/20/18 03:33 05/20/18 05:00 Temperature 97.9 F Pulse Rate 81 77 80 Respiratory Rate 17 Blood Pressure 107/58 L Pulse Oximetry 99 05/20/18 05:40 05/20/18 07:27 05/20/18 07:31 Temperature Pulse Rate 81 81 Respiratory Rate 17 Blood Pressure Pulse Oximetry 05/20/18 08:00 05/20/18 08:40 05/20/18 09:00 Temperature 97.5 F L Pulse Rate 81 80 Respiratory Rate 16 16 Blood Pressure 98/51 L Pulse Oximetry 98 05/20/18 10:00 05/20/18 11:00 05/20/18 12:00 Temperature Pulse Rate 78 84 89 Respiratory Rate Blood Pressure Pulse Oximetry 05/20/18 13:00 05/20/18 13:14 05/20/18 13:48 Temperature 98.1 F Pulse Rate 101 H 106 H Respiratory Rate 18 Blood Pressure 137/63 Pulse Oximetry 98 97 05/20/18 14:03 05/20/18 15:51 05/20/18 16:00 Temperature 98.4 F Pulse Rate 114 H 98 H 122 H Respiratory Rate 22 Blood Pressure 160/73 H Pulse Oximetry 05/20/18 16:49 05/20/18 16:59 05/20/18 17:14 Temperature Pulse Rate 99 H 116 H Respiratory Rate 14 Blood Pressure Pulse Oximetry Intake & Output 05/19/18 05/20/18 05/20/18 18:59 06:59 18:59 Intake Total 1010 / 1010 290 / 290 250 / 250 Output Total 2059 572 / 572 1999 Balance -1050 / -1050 -282 / -282 -1750 / -1750 Weight 58 kg Intake: IV 50 / 50 50 / 50 250 / 250 Zosyn 2.25 GM Premix 50 ML @ 50 / 50 50 / 50 100 mls/hr IV.SIG Q12H [facility] Rx#: [id number] Vancomycin Inj 1,000 MG In NS 250 / 250 Inj 250 ML @ 250 mls/hr IV.SIG [facility] Rx#:[id number] Oral 960 / 960 240 / 240 Output: Urine 500 / 500 550 / 550 Hemodialysis Amount 1999 / 1999 Stool Amount (Stoma) 1500 / 1500 Right Lower Abdomen 1500 / 1500 Wound Drainage 60 / 60 # 1 Left Upper Arm NATHAN Drain 40 / 40 # 2 Left Arm NATHAN Drain Other: Date of Last Bowel Movement 05/18/18 05/20/18 Narrative: GENERAL: Chronically ill appearing elderly female. CARDIOVASCULAR: Normal rate and regular rhythm without murmurs, gallops, or rubs. RESPIRATORY: Good respiratory efforts. Breath sounds equal and clear to auscultation bilaterally. GASTROINTESTINAL: Abdomen soft, non-tender, non-distended. Normal active bowel sounds MUSCULOSKELETAL: Left arm is wrapped with postsurgical dressing and Lio. There is a drain with serosanguineous fluid. Range of motion of the left hand and fingers intact but patient endorsed numbness. NEURO: Alert & Oriented x4 to person, place, time, situation. Moves all ext x4 PSYCH: Appropriate mood and affect. Results - Labs CBC & Chem 7: 05/20/18 05:20 05/20/18 05:20 Laboratory Results - last 24 hr 05/20/18 05/20/18 05/20/18 05:20 05:20 10:13 WBC 6.2 RBC 2.78 L Hgb 8.8 L Hct 25.7 L MCV 92.6 MCH 31.5 MCHC 34.0 RDW 19.1 H Plt Count 78 L MPV 9.8 Prelim Diff (Auto) Slide review pending Neut % (Auto) 69.3 Lymph % (Auto) 15.1 [place] % (Auto) 4.9 Eos % (Auto) 10.2 H Baso % (Auto) 0.5 Neut # (Auto) 4.3 Lymph # (Auto) 0.9 L [place] # (Auto) 0.3 Eos # (Auto) 0.6 H Baso # (Auto) 0.0 WBC Differential . Diff Scan Auto diff confirmed Differential Comment . Platelet Estimate Low L Platelet Morphology Normal Sodium 133 L Potassium 4.5 Chloride 101 Carbon Dioxide 22.5 Anion Gap 10 BUN 51 H Creatinine 6.33 H Estimated GFR 6 L POC Glucose 86 Random Glucose 93 Calcium 8.6 D Total Bilirubin 0.4 AST 22 ALT 14 Alkaline Phosphatase 95 Total Protein 7.1 Albumin 3.0 L D Random Vancomycin 19.8 Microbiology 05/18/18 16:07 Wound - Other Gram Stain - Final 05/18/18 16:07 Wound - Other Wound Culture - Preliminary No growth in 48 hours 05/18/18 16:15 Wound - Arm Gram Stain - Final 05/18/18 16:15 Wound - Arm Wound Culture - Preliminary No growth in 48 hours 05/18/18 16:15 Tissue - Other Gram Stain - Final 05/18/18 16:15 Tissue - Other Wound Culture - Preliminary No growth in 48 hours 05/19/18 04:28 Blood - Peripheral Aerobic Blood Culture - Preliminary No growth in 1 day 05/19/18 04:28 Blood - Peripheral Anaerobic Blood Culture - Preliminary No growth in 1 day 05/19/18 04:25 Blood - Peripheral Aerobic Blood Culture - Preliminary No growth in 1 day 05/19/18 04:25 Blood - Peripheral Anaerobic Blood Culture - Preliminary No growth in 1 day 05/18/18 16:07 Wound - Other Acid Fast Bacilli Smear - Final No acid fast bacilli seen Assessment and Plan - Plan 77-year-old female admitted secondary to left arm graft infection and cellulitis. S/P surgical intervention which revealed 2 large seromas that were drained. Continue to follow cultures. Vascular surgery and Nephrology following. Will need to bridge back to Coumadin. Left arm graft infection Left arm cellulitis Appreciate vascular surgery following. Exam on admission showed a small amount of purulent discharge. Intraoperatively there were 2 large seromas that were drained. Nephrology following. Continue broad-spectrum antibiotics with Zosyn and vancomycin. Vancomycin dosing per nephrology. Follow cultures. No growth so far. End-stage renal disease Chronic dialysis dependence Nephrology following Continue hemodialysis Acute on chronic anemia secondary to blood loss. s/p seroma drainage as above. Follow CBC. Hypertension Continue baseline treatment Follow blood pressures Adjust treatments as needed DVT (deep venous thrombosis) Pulmonary embolism Continue heparin. Will need to bridge back to Coumadin if no other procedures planned. Patient is normally on Coumadin. History of diverticulosis History of bowel perforation related to diverticulitis Ileostomy in place Supportive care Follow clinically DVT prophylaxis Heparin
[2018-05-21] MEDS: Piperacil/Tazo 2.25 GM Premix 50 ML IV.SIG SCH ×2 (04:29→17:15)
[2018-05-21 05:05] LABS: Hematocrit 26.7 % (35.0-46.0); Mean Corpuscular HGB Conc 33.6 % (32.0-36.0); Mean Corpuscular Hemoglobin 31.1 pg (27.0-34.0); Mean Corpuscular Volume 92.5 fL (80.0-100.0); Mean Platelet Volume 9.3 fL (7.0-11.0); Platelet Count 67 th/mm3 (150-450); Red Blood Count 2.89 mil/mm3 (4.00-5.30); Red Cell Distribution Width 17.9 % (11.6-17.2); White Blood Count 5.7 th/mm3 (4.0-11.0)
[2018-05-21 05:17] LABS: INR 1.2 Ratio; Prothrombin Time 12.3 sec (9.8-11.6)
[2018-05-21 05:30] LABS: Calcium 8.5 mg/dL (8.5-10.1); Carbon Dioxide 27.1 meq/L (21.0-32.0); Potassium 4.3 meq/L (3.5-5.1)
[2018-05-21] MEDS: Heparin - SQ 10,000 UNITS/ML Vial SQ SCH ×2 (05:48→14:13)
[2018-05-21] MEDS: Lactobacillus Acidophilus/L. Spores Tablet PO SCH ×3 (08:12→17:23)
--- NOTE | 2018-05-21 13:29 | P.PNWCN ---
Bowel Diversion Stoma - Bowel Stoma Right Lower Abdomen Stoma Appearance: Beefy Red Collection Device: Two-piece, Moldable Wafer Wafer Size: 1 3/4 Moldable 45mm - Additional Information Additional Information: Patient seen on [facility] for ostomy management, per patient she is having constant increased liquid consistency of effluent and leaking from her appliance. Patient is sitting at bedside when policy writer entered room. Patient states, "The problem is has gotten better, since I got the correct supplies." Patient no longer needs ostomy support. Appliance is intact and in place, without leaks. Patient has extra supplies in room with education booklet on dietary instructions with ileostomy. Reviewed with patient foods to thicken effluent section. Patient verbalizes understanding.
[2018-05-21] MEDS ORDERED: Sodium Chloride 0.9% 2 ML Flush PRN IV.FLUSH (16:02)
--- NOTE | 2018-05-21 16:21 | P.PNVS ---
Subjective Procedure: incision and drainage of L axillary/L arm seroma Subjective/Hospital Course: 77/F s/p I&D Left axillary/arm seroma POD 3 doing well, pain controlled Objective Vital Signs / I&O: Vital Signs 05/20/18 16:49 05/20/18 16:59 05/20/18 17:14 Temperature Pulse Rate 99 H 116 H Respiratory Rate 14 Blood Pressure Pulse Oximetry 05/20/18 18:34 05/20/18 19:00 05/20/18 20:00 Temperature 98.3 F Pulse Rate 105 H 106 H 101 H Respiratory Rate 20 Blood Pressure 137/64 Pulse Oximetry 97 05/20/18 21:00 05/20/18 22:00 05/20/18 23:00 Temperature Pulse Rate 106 H 94 H 90 Respiratory Rate Blood Pressure Pulse Oximetry 05/21/18 00:00 05/21/18 01:00 05/21/18 02:00 Temperature 98.1 F Pulse Rate 84 90 92 H Respiratory Rate 18 Blood Pressure 107/59 L Pulse Oximetry 98 05/21/18 03:00 05/21/18 04:00 05/21/18 05:00 Temperature 98 F Pulse Rate 84 84 82 Respiratory Rate 18 Blood Pressure 112/56 L Pulse Oximetry 95 05/21/18 06:00 05/21/18 07:44 05/21/18 08:00 Temperature Pulse Rate 78 83 84 Respiratory Rate Blood Pressure Pulse Oximetry 05/21/18 08:33 05/21/18 09:00 05/21/18 10:19 Temperature 98.1 F Pulse Rate 86 86 81 Respiratory Rate 18 Blood Pressure 116/57 L Pulse Oximetry 99 05/21/18 11:00 05/21/18 12:00 05/21/18 13:00 Temperature 98.0 F Pulse Rate 96 H 96 H 80 Respiratory Rate 18 Blood Pressure 83/50 L Pulse Oximetry 100 05/21/18 14:00 05/21/18 15:00 05/21/18 16:00 Temperature 97.5 F L Pulse Rate 90 87 92 H Respiratory Rate 20 Blood Pressure 158/63 H Pulse Oximetry 100 Intake & Output 05/20/18 05/21/18 05/21/18 18:59 06:59 18:59 Intake Total 1930 / 1930 580 / 580 Output Total 2054 / 2054 1660 / 1660 Balance -125 / -125 -1080 / -1080 Weight 57.5 kg Intake: IV 250 / 250 100 / 100 Zosyn 2.25 GM Premix 50 ML @ 100 / 100 100 mls/hr IV.SIG Q12H [facility] Rx#: [id number] Vancomycin Inj 1,000 MG In NS 250 / 250 Inj 250 ML @ 250 mls/hr IV.SIG [facility] Rx#:[id number] Oral 1680 / 1680 480 / 480 Output: Urine 400 / 400 Hemodialysis Amount 1999 / 1999 Stool Amount (Stoma) 1200 / 1200 Right Lower Abdomen 1200 / 1200 Wound Drainage 55 / 55 60 / 60 # 1 Left Upper Arm NATHAN Drain 40 / 40 10 10 # 2 Left Arm NATHAN Drain 15 / 15 50 / 50 Other: # Voids 3 Date of Last Bowel Movement 05/20/18 05/21/18 Exam: LUE wounds CDI Laboratory Results - last 24 hr 05/18/18 05/21/18 05/21/18 19:37 04:00 04:00 WBC 5.7 RBC 2.89 L Hgb 9.0 L Hct 26.7 L MCV 92.5 MCH 31.1 MCHC 33.6 RDW 17.9 H Plt Count 67 L MPV 9.3 PT 12.3 H INR 1.2 Sodium Potassium Chloride Carbon Dioxide Anion Gap BUN Creatinine Estimated GFR Random Glucose Calcium MTS Gel Crossmatch See Detail 05/21/18 04:10 WBC RBC Hgb Hct MCV MCH MCHC RDW Plt Count MPV PT INR Sodium 132 L Potassium 4.3 Chloride 99 Carbon Dioxide 27.1 Anion Gap 6 BUN 32 H Creatinine 4.02 H Estimated GFR 11 L Random Glucose 90 Calcium 8.5 MTS Gel Crossmatch Microbiology 05/18/18 16:15 Acid Fast Bacilli Smear - Final Tissue - Arm No acid fast bacilli seen 05/18/18 16:15 Acid Fast Bacilli Smear - Final Other No acid fast bacilli seen 05/19/18 04:28 Aerobic Blood Culture - Preliminary Blood - Peripheral No growth in 2 days Anaerobic Blood Culture - Preliminary No growth in 2 days 05/19/18 04:25 Aerobic Blood Culture - Preliminary Blood - Peripheral No growth in 2 days Anaerobic Blood Culture - Preliminary No growth in 2 days 05/18/18 16:15 Gram Stain - Final Tissue - Other Wound Culture - Final No growth in 72 hours (aerobically and anaerobically) 05/18/18 16:07 Gram Stain - Final Wound - Other Wound Culture - Final No growth in 72 hours (aerobically and anaerobically) 05/18/18 16:15 Gram Stain - Final Wound - Arm Wound Culture - Final No growth in 72 hours (aerobically and anaerobically) 05/18/18 16:07 Fungal Smear - Final Wound - Other No fungal elements seen 05/18/18 16:15 Fungal Smear - Final Tissue - Arm No fungal elements seen 05/18/18 16:15 Fungal Smear - Final Other No fungal elements seen Assessment and Plan - Plan 77/F s/p Left upper extremity I&D (seroma) culture NTD Continue with local wound care Keep NATHAN drain Continue with heparin drip, Hold off Coumadin until final cultures obtained
--- NOTE | 2018-05-21 16:25 | P.PNNP ---
Subjective Interval history: Patient is doing better left arm swelling has declined there is no infection Physical Exam Vital signs: Vital Signs 05/20/18 16:49 05/20/18 16:59 05/20/18 17:14 Temperature Pulse Rate 99 H 116 H Respiratory Rate 14 Blood Pressure Pulse Oximetry 05/20/18 18:34 05/20/18 19:00 05/20/18 20:00 Temperature 98.3 F Pulse Rate 105 H 106 H 101 H Respiratory Rate 20 Blood Pressure 137/64 Pulse Oximetry 97 05/20/18 21:00 05/20/18 22:00 05/20/18 23:00 Temperature Pulse Rate 106 H 94 H 90 Respiratory Rate Blood Pressure Pulse Oximetry 05/21/18 00:00 05/21/18 01:00 05/21/18 02:00 Temperature 98.1 F Pulse Rate 84 90 92 H Respiratory Rate 18 Blood Pressure 107/59 L Pulse Oximetry 98 05/21/18 03:00 05/21/18 04:00 05/21/18 05:00 Temperature 98 F Pulse Rate 84 84 82 Respiratory Rate 18 Blood Pressure 112/56 L Pulse Oximetry 95 05/21/18 06:00 05/21/18 07:44 05/21/18 08:00 Temperature Pulse Rate 78 83 84 Respiratory Rate Blood Pressure Pulse Oximetry 05/21/18 08:33 05/21/18 09:00 05/21/18 10:19 Temperature 98.1 F Pulse Rate 86 86 81 Respiratory Rate 18 Blood Pressure 116/57 L Pulse Oximetry 99 05/21/18 11:00 05/21/18 12:00 05/21/18 13:00 Temperature 98.0 F Pulse Rate 96 H 96 H 80 Respiratory Rate 18 Blood Pressure 83/50 L Pulse Oximetry 100 05/21/18 14:00 05/21/18 15:00 05/21/18 16:00 Temperature 97.5 F L Pulse Rate 90 87 92 H Respiratory Rate 20 Blood Pressure 158/63 H Pulse Oximetry 100 Intake & Output 05/20/18 05/21/18 05/21/18 18:59 06:59 18:59 Intake Total 1930 / 1930 580 / 580 Output Total 2054 / 2054 1660 / 1660 Balance -125 / -125 -1080 / -1080 Weight 57.5 kg Intake: IV 250 / 250 100 / 100 Zosyn 2.25 GM Premix 50 ML @ 100 / 100 100 mls/hr IV.SIG Q12H [facility] Rx#: [id number] Vancomycin Inj 1,000 MG In NS 250 / 250 Inj 250 ML @ 250 mls/hr IV.SIG [facility] Rx#:[id number] Oral 1680 / 1680 480 / 480 Output: Urine 400 / 400 Hemodialysis Amount 2000 / 2000 Stool Amount (Stoma) 1200 / 1200 Right Lower Abdomen 1200 / 1200 Wound Drainage 55 / 55 60 / 60 # 1 Left Upper Arm NATHAN Drain 40 / 40 10 / 10 # 2 Left Arm NATHAN Drain 15 / 15 50 / 50 Other: # Voids 3 Date of Last Bowel Movement 05/20/18 05/21/18 Narrative: GENERAL: This is a well-nourished, well-developed patient, in no apparent distress. CARDIOVASCULAR: Normal rate and regular rhythm without murmurs, gallops, or rubs. RESPIRATORY: Good respiratory efforts. Breath sounds equal and clear to auscultation bilaterally. GASTROINTESTINAL: Abdomen soft, non-tender, non-distended. Normal active bowel sounds MUSCULOSKELETAL: Left arm is wrapped with postsurgical dressing and Lio. There is a drain with serosanguineous fluid. Range of motion of the left hand and fingers intact but patient endorsed numbness. NEURO: Alert & Oriented x4 to person, place, time, situation. Moves all ext x4 PSYCH: Appropriate mood and affect. Assessment and Plan - Assessment (1) ESRD on dialysis Code(s): N18.6 - End stage renal disease; Z99.2 - Dependence on renal dialysis Status: Chronic (2) Hypertension Code(s): I10 - Essential (primary) hypertension Status: Chronic Qualifiers: Hypertension type: renovascular hypertension Qualified Code(s): I15.0 - Renovascular hypertension (3) Sepsis Code(s): A41.9 - Sepsis, unspecified organism Status: Acute (4) Cellulitis of left upper arm Code(s): L03.114 - Cellulitis of left upper limb Status: Acute (5) Hyperkalemia Code(s): E87.5 - Hyperkalemia Status: Acute - Plan Patient is seen during hemodialysis she is tolerating it well Left arm is wrapped, AV graft was preserved, seroma was drained cultures are so far negative Hemodialysis next dialysis tomorrow. Potassium is normal.
--- NOTE | 2018-05-21 18:08 | P.PNIM ---
Subjective Interval history: Patient says she is feeling right. She reports brief episode of right sided chest pain this afternoon which has resolved. Denies any current chest pain or shortness of breath. Physical Exam Vital signs: Vital Signs 05/20/18 18:34 05/20/18 19:00 05/20/18 20:00 Temperature 98.3 F Pulse Rate 105 H 106 H 101 H Respiratory Rate 20 Blood Pressure 137/64 Pulse Oximetry 97 05/20/18 21:00 05/20/18 22:00 05/20/18 23:00 Temperature Pulse Rate 106 H 94 H 90 Respiratory Rate Blood Pressure Pulse Oximetry 05/21/18 00:00 05/21/18 01:00 05/21/18 02:00 Temperature 98.1 F Pulse Rate 84 90 92 H Respiratory Rate 18 Blood Pressure 107/59 L Pulse Oximetry 98 05/21/18 03:00 05/21/18 04:00 05/21/18 05:00 Temperature 98 F Pulse Rate 84 84 82 Respiratory Rate 18 Blood Pressure 112/56 L Pulse Oximetry 95 05/21/18 06:00 05/21/18 07:44 05/21/18 08:00 Temperature Pulse Rate 78 83 84 Respiratory Rate Blood Pressure Pulse Oximetry 05/21/18 08:33 05/21/18 09:00 05/21/18 10:19 Temperature 98.1 F Pulse Rate 86 86 81 Respiratory Rate 18 Blood Pressure 116/57 L Pulse Oximetry 99 05/21/18 11:00 05/21/18 12:00 05/21/18 13:00 Temperature 98.0 F Pulse Rate 96 H 96 H 80 Respiratory Rate 18 Blood Pressure 83/50 L Pulse Oximetry 100 05/21/18 14:00 05/21/18 15:00 05/21/18 16:00 Temperature 97.5 F L Pulse Rate 90 87 92 H Respiratory Rate 20 Blood Pressure 158/63 H Pulse Oximetry 100 Intake & Output 05/20/18 05/21/18 05/21/18 18:59 06:59 18:59 Intake Total 0 / 1930 580 / 580 50 / 50 Output Total 2054 1660 / 1660 Balance -125 / -125 -1080 / -1080 50 / 50 Weight 57.5 kg Intake: IV 250 / 250 100 / 100 50 / 50 Zosyn 2.25 GM Premix 50 ML @ 100 / 100 50 / 50 100 mls/hr IV.SIG Q12H [place] Rx#: [id number] Vancomycin Inj 1,000 MG In NS 250 / 250 Inj 250 ML @ 250 mls/hr IV.SIG WITH DIALYSIS [place] Rx#:[id number] Oral 1680 / 1680 480 / 480 Output: Urine 400 / 400 Hemodialysis Amount 1999 / 1999 Stool Amount (Stoma) 1200 / 1200 Right Lower Abdomen 1200 / 1200 Wound Drainage 55 / 55 60 / 60 # 1 Left Upper Arm NATHAN Drain 40 / 40 10 / 10 # 2 Left Arm NATHAN Drain 15 / 15 50 / 50 Other: # Voids 3 Date of Last Bowel Movement 05/20/18 05/21/18 Narrative: GENERAL: Patient sitting up in bed eating. Appears comfortable. SKIN: Warm and dry. HEAD: Normocephalic. EYES: No scleral icterus. No injection or drainage. NECK: Supple, trachea midline. No JVD. CARDIOVASCULAR: Regular rate and rhythm without murmurs, gallops, or rubs. RESPIRATORY: Breath sounds equal bilaterally. No accessory muscle use. GASTROINTESTINAL: Abdomen soft, non-tender, nondistended. Ileostomy MUSCULOSKELETAL: No cyanosis, or edema. Right upper extremity with dressing clean dry and intact. Peripheral perfusion intact. BACK: Nontender without obvious deformity. No CVA tenderness. Results - Labs CBC & Chem 7: 05/21/18 04:00 05/21/18 04:10 Laboratory Results - last 24 hr 05/18/18 05/21/18 05/21/18 19:37 04:00 04:00 WBC 5.7 RBC 2.89 L Hgb 9.0 L Hct 26.7 L MCV 92.5 MCH 31.1 MCHC 33.6 RDW 17.9 H Plt Count 67 L MPV 9.3 PT 12.3 H INR 1.2 Sodium Potassium Chloride Carbon Dioxide Anion Gap BUN Creatinine Estimated GFR Random Glucose Calcium MTS Gel Crossmatch See Detail 05/21/18 04:10 WBC RBC Hgb Hct MCV MCH MCHC RDW Plt Count MPV PT INR Sodium 132 L Potassium 4.3 Chloride 99 Carbon Dioxide 27.1 Anion Gap 6 BUN 32 H Creatinine 4.02 H Estimated GFR 11 L Random Glucose 90 Calcium 8.5 MTS Gel Crossmatch Microbiology 05/18/18 16:15 Tissue - Arm Acid Fast Bacilli Smear - Final No acid fast bacilli seen 05/18/18 16:15 Other Acid Fast Bacilli Smear - Final No acid fast bacilli seen 05/19/18 04:28 Blood - Peripheral Aerobic Blood Culture - Preliminary No growth in 2 days 05/19/18 04:28 Blood - Peripheral Anaerobic Blood Culture - Preliminary No growth in 2 days 05/19/18 04:25 Blood - Peripheral Aerobic Blood Culture - Preliminary No growth in 2 days 05/19/18 04:25 Blood - Peripheral Anaerobic Blood Culture - Preliminary No growth in 2 days 05/18/18 16:15 Tissue - Other Gram Stain - Final 05/18/18 16:15 Tissue - Other Wound Culture - Final No growth in 72 hours (aerobically and anaerobically ) 05/18/18 16:07 Wound - Other Gram Stain - Final 05/18/18 16:07 Wound - Other Wound Culture - Final No growth in 72 hours (aerobically and anaerobically ) 05/18/18 16:15 Wound - Arm Gram Stain - Final 05/18/18 16:15 Wound - Arm Wound Culture - Final No growth in 72 hours (aerobically and anaerobically ) 05/18/18 16:07 Wound - Other Fungal Smear - Final No fungal elements seen 05/18/18 16:15 Tissue - Arm Fungal Smear - Final No fungal elements seen 05/18/18 16:15 Other Fungal Smear - Final No fungal elements seen Assessment and Plan - Plan 77-year-old female admitted secondary to left arm graft infection and cellulitis. S/P surgical intervention which revealed 2 large seromas that were drained. Continue to follow cultures. Vascular surgery and Nephrology following. Will need to bridge back to Coumadin. Left arm graft infection Left arm cellulitis Appreciate vascular surgery following. Exam on admission showed a small amount of purulent discharge. Intraoperatively there were 2 large seromas that were drained. Nephrology following. Continue broad-spectrum antibiotics with Zosyn and vancomycin. Vancomycin dosing per nephrology. Follow cultures. No growth so far. = 05/21. Still with no growth. Continues on wound VAC. Consult ID for final antibiotic recommendations. Appreciate vascular surgery assistance. End-stage renal disease Chronic dialysis dependence Nephrology following =Continue hemodialysis. Appreciate nephrology assistance Acute on chronic anemia secondary to blood loss. s/p seroma drainage as above. Follow CBC. = Hemoglobin stable. Hypertension Continue baseline treatment Follow blood pressures Adjust treatments as needed DVT (deep venous thrombosis) Pulmonary embolism Continue heparin. Will need to bridge back to Coumadin if no other procedures planned. Patient is normally on Coumadin. = 05/21. Cleared to restart heparin drip. 15 beats of ventricular tachycardia On 05/21. Asymptomatic. Basic labs reviewed. Cardiology consulted. History of diverticulosis History of bowel perforation related to diverticulitis Ileostomy in place Supportive care Follow clinically DVT prophylaxis Heparin Discussed Condition With: Patient, nurse Discharge Planning: Hopefully home in the next few days when cleared by infectious disease, vascular surgery. =May need bridging back to warfarin for DVT. Unable to do Lovenox due to renal failure.
[2018-05-21] MEDS: Heparin Drip 25,000 UNIT/250 ML BAG IV.CONT PRN (18:56)
--- NOTE | 2018-05-21 19:50 | P.CONID ---
History of Present Illness Service: ID Consult date: 05/21/18 Requesting Physician: Tom Beatty Reason for Consult: left arm infection. cx negative Primary Care Provider: UNKNOWN Chief Complaint: Left arm swelling History of Present Illness: Known to me I saw the pt few months ago briefly 77 yo F with ESRD, LUE AV graft always had swollen tender red LUE following the AV graft rocedure Lat time presented with sepsis thought to be from the AVG as well, all cultures negtive Pt sp revision on 05/18 Intra op diagnoses was symptomatic left arm and eft axillary large seroma. All op clx are negative - final no fever, no leukocytosis Cultures from previous hopsitalisation are negative as well On vanco, zosyn PMFSH - History History Provided By: Patient - Medical History Medical History: Medical History (Last Reviewed 05/17/18 @ 22:04 by Dewayne Yanez MD) Absent parathyroid gland Anemia DVT (deep venous thrombosis) Diverticulitis of colon with perforation End stage renal disease on dialysis History of blood product transfusion Hx of hysterectomy Hypertension Ileostomy in place Pulmonary embolism Vascular dialysis catheter in place - Surgical History Surgical History: Surgical History (Last Reviewed 05/17/18 @ 22:04 by Dewayne Yanez MD) History of arteriovenous graft Hx of colostomy Hx of ileostomy - Family History Family History: Family History (Last Reviewed 05/17/18 @ 22:04 by Dewayne Yanze MD) Son Kidney disease Daughter Kidney disease - Tobacco History Second Hand Smoke Exposure: No Smoking Status: Never smoker - Alcohol History How Often Do You Have a Drink Containing Alcohol: Never - Substance Use History Substance History: No History of Abuse - Travel History Recent Travel in the [place] Within the Last 8 Weeks: No Recent Travel Out of the Country Within the Last 8 Weeks: No - Immunization History Tetanus Immunization: Unsure Hx Influenza Vaccine This Season: Yes Medications and Allergies Active Medications: Active Medications Acetaminophen (Tylenol) 650 mg PO Q4H PRN PRN Reason: Temp > 100.4 Last Admin: 05/19/18 12:00 Dose: 650 mg Hydrocodone Bitart/Acetaminophen ([place] 5/325) 2 tab PO Q4H PRN PRN Reason: PAIN SCALE 1 TO 10 Last Admin: 05/21/18 16:54 Dose: 2 tab Al Hydroxide/Mg Hydroxide (Milk Of Magnesia Liq) 30 ml PO Q12H PRN PRN Reason: Mild Constipation Clonidine HCl (Catapres) 0.1 mg PO UNSCH PRN PRN Reason: SEE LABEL COMMENTS Diphenhydramine HCl (Benadryl) 25 mg PO UNSCH PRN PRN Reason: SEE LABEL COMMENTS Epoetin Justice (Epogen Inj) 4,000 unit IV.PUSH UNSCH PRN PRN Reason: SEE LABEL COMMENTS Last Admin: 05/20/18 10:25 Dose: 4,000 unit Gelatin (Gelfoam 12 Mm/7 Mm Topical) 1 foam TOPICAL PRN PRN PRN Reason: help stop bleeding from site Gentamicin Sulfate (Gentamicin Inj) 20 mg OTHER WITH DIALYSIS PRN PRN Reason: Dwell Gentamycin Lock Last Admin: 05/20/18 10:25 Dose: 20 mg Heparin Sodium (Porcine) (Heparin Inj) 8,000 units OTHER WITH DIALYSIS PRN PRN Reason: for machine prime Heparin Sodium (Porcine) (Heparin Inj) 1,000 units OTHER WITH DIALYSIS PRN PRN Reason: Dwell Heparin to Fill Catheter Last Admin: 05/20/18 10:26 Dose: 1,000 units Hydromorphone HCl (Dilaudid Pf Inj) 1 mg IV.PUSH Q2H PRN PRN Reason: SEVERE PAIN Last Admin: 05/20/18 10:28 Dose: 1 mg Heparin Sodium/Dextrose (Heparin/D5w 25,000 U/250 Ml) 25,000 unit in 250 mls @ 0 mls/hr IV.CONT TITRATE PRN; Protocol PRN Reason: Per Protocol Last Admin: 05/21/18 18:56 Dose: 1,200 units/hr, 12 mls/hr Piperacillin/Tazobactam/Dextrose (Zosyn 2.25 Gm Premix) 50 mls @ 100 mls/hr IV.SIG Q12H [place] Last Infusion: 05/21/18 18:00 Dose: Infused Albumin Human (Flexbumin 25% Inj) 100 mls @ 60 mls/hr IV.SIG WITH DIALYSIS PRN PRN Reason: hypotension / volume replace Last Infusion: 05/18/18 09:26 Dose: Infused Sodium Chloride (Ns Inj) 1,000 mls @ 0 mls/hr OTHER .Q0M PRN PRN Reason: for prime and rinse back Sodium Chloride (Ns Inj) 1,000 mls @ 200 mls/hr OTHER .Q5H PRN PRN Reason: for dialyzer flush PRN Sodium Chloride (Ns Inj) 1,000 mls @ 0 mls/hr IV.CONT .Q0M PRN PRN Reason: hypotension / volume replace Vancomycin HCl 1,000 mg/ (Sodium Chloride) 250 mls @ 250 mls/hr IV.SIG WITH DIALYSIS [facility] Last Infusion: 05/20/18 13:06 Dose: Infused Lactobacillus Acidophilus (Lactinex) 1 tab PO TID [facility] Last Admin: 05/21/18 17:23 Dose: 1 tab Mannitol (Mannitol Inj) 12.5 gm IV.PUSH UNSCH PRN PRN Reason: hypotension / volume replace Metoprolol Succinate (Toprol Xl) 50 mg PO BID [facility] Last Admin: 05/21/18 08:12 Dose: 50 mg Morphine Sulfate (Morphine Inj) 2 mg IV.PUSH Q4H PRN PRN Reason: Pain 3 to 6 Morphine Sulfate (Morphine Inj) 4 mg IV.PUSH Q4H PRN PRN Reason: Pain 7 to 10 Last Admin: 05/18/18 01:33 Dose: 4 mg Nitroglycerin (Nitrostat Sl) 0.4 mg SL Q5M PRN PRN Reason: CHEST PAIN Ondansetron HCl (Zofran Inj) 4 mg IV.PUSH Q6H PRN PRN Reason: NAUSEA OR VOMITING Last Admin: 05/21/18 16:55 Dose: 4 mg Ondansetron HCl (Zofran Inj) 4 mg IV.PUSH UNSCH PRN PRN Reason: NAUSEA OR VOMITING Sodium Chloride (Ns Flush) 5 ml IV.FLUSH PRN PRN PRN Reason: flush each lumen during HD Last Admin: 05/21/18 08:13 Dose: 5 ml Sodium Chloride (Ns Flush) 2 ml IV.FLUSH BID [facility] Sodium Chloride (Ns Flush) 2 ml IV.FLUSH PRN PRN PRN Reason: FLUSH AFTER USING IV ACCESS Allergies Allergy/AdvReac Type Severity Reaction Status Date / Time Sulfa (Sulfonamide Allergy Swelling Verified 05/17/18 12:38 Antibiotics) Home Medications Medication Instructions Recorded Confirmed Type tramadol 50 mg PO Q8HR 01/10/18 05/18/18 History metoprolol succinate 50 mg PO BID 02/05/18 05/18/18 History cephalexin [Keflex] 500 mg PO BID 05/17/18 05/18/18 History warfarin 3 mg PO Q OTHER DAY 05/17/18 05/18/18 History warfarin 4 mg PO Q OTHER DAY 05/17/18 05/18/18 History Exam Vital signs: Vital Signs 05/20/18 20:00 05/20/18 21:00 05/20/18 22:00 Temperature 98.3 F Pulse Rate 101 H 106 H 94 H Respiratory Rate 20 Blood Pressure 137/64 Pulse Oximetry 97 05/20/18 23:00 05/21/18 00:00 05/21/18 01:00 Temperature 98.1 F Pulse Rate 90 84 90 Respiratory Rate 18 Blood Pressure 107/59 L Pulse Oximetry 98 05/21/18 02:00 05/21/18 03:00 05/21/18 04:00 Temperature 98 F Pulse Rate 92 H 84 84 Respiratory Rate 18 Blood Pressure 112/56 L Pulse Oximetry 95 05/21/18 05:00 05/21/18 06:00 05/21/18 07:44 Temperature Pulse Rate 82 78 83 Respiratory Rate Blood Pressure Pulse Oximetry 05/21/18 08:00 05/21/18 08:33 05/21/18 09:00 Temperature 98.1 F Pulse Rate 84 86 86 Respiratory Rate 18 Blood Pressure 116/57 L Pulse Oximetry 99 05/21/18 10:19 05/21/18 11:00 05/21/18 12:00 Temperature 98.0 F Pulse Rate 81 96 H 96 H Respiratory Rate 18 Blood Pressure 83/50 L Pulse Oximetry 100 05/21/18 13:00 05/21/18 14:00 05/21/18 15:00 Temperature 97.5 F L Pulse Rate 80 90 87 Respiratory Rate 20 Blood Pressure 158/63 H Pulse Oximetry 100 05/21/18 16:00 05/21/18 17:00 05/21/18 18:00 Temperature Pulse Rate 92 H 92 H 94 H Respiratory Rate Blood Pressure Pulse Oximetry Intake & Output 05/21/18 05/21/18 05/22/18 06:59 18:59 06:59 Intake Total 580 / 580 530 / 530 Output Total 1660 / 1660 280 / 280 Balance -1080 / -1080 250 / 250 Weight 57.5 kg Intake: IV 100 / 100 50 / 50 Zosyn 2.25 GM Premix 50 ML @ 100 / 100 50 / 50 100 mls/hr IV.SIG Q12H [place] Rx#: [id number] Oral 480 / 480 480 / 480 Output: Urine 400 / 400 Stool 250 / 250 Stool Amount (Stoma) 1200 / 1200 Right Lower Abdomen 1200 / 1200 Wound Drainage 60 / 60 30 / 30 # 1 Left Upper Arm NATHAN Drain 10 / 10 25 / 25 # 2 Left Arm NATHAN Drain 50 / 50 5 / 5 Other: # Voids 3 Date of Last Bowel Movement 05/20/18 05/21/18 - Constitutional no acute distress, thin - Routine HEENT Exam Head: Present: normocephalic, atraumatic Eye: Present: EOMI, PERRL ENT: Present: mucous membranes moist, oropharynx clear - Routine Neck Exam Present: supple. Absent: JVD - Routine Respiratory Exam Present: CTA bilaterally. Absent: respiratory distress, rhonchi - Routine Cardiovascular Exam Present: RRR, S1, S2. Absent: murmur, gallop, rubs - Routine Abdominal Exam Present: soft, normoactive bowel sounds. Absent: tenderness, distended, organomegaly, mass - Routine Extremities Exam Present: edema (trace BLE). Absent: cyanosis, clubbing Comments: LUR + edema, erythema, some L axilla induratio + palpable graft surg dressing in place - Routine Skin Exam Present: dry, warm, lesions (2 dry scabs , chronic on R calf sp snake bite, no drainage, n erythemna). Absent: rash - Routine Neurological Exam Present: alert, oriented X3, CN II-XII intact. Absent: sensory deficit, motor deficit - Routine Psychiatric Exam Present: unable to assess Results - Labs CBC & Chem 7: 05/21/18 04:00 05/21/18 04:10 Labs: Laboratory Results - last 24 hr 05/18/18 05/21/18 05/21/18 19:37 04:00 04:00 WBC 5.7 RBC 2.89 L Hgb 9.0 L Hct 26.7 L MCV 92.5 MCH 31.1 MCHC 33.6 RDW 17.9 H Plt Count 67 L MPV 9.3 PT 12.3 H INR 1.2 Sodium Potassium Chloride Carbon Dioxide Anion Gap BUN Creatinine Estimated GFR Random Glucose Calcium MTS Gel Crossmatch See Detail 05/21/18 04:10 WBC RBC Hgb Hct MCV MCH MCHC RDW Plt Count MPV PT INR Sodium 132 L Potassium 4.3 Chloride 99 Carbon Dioxide 27.1 Anion Gap 6 BUN 32 H Creatinine 4.02 H Estimated GFR 11 L Random Glucose 90 Calcium 8.5 MTS Gel Crossmatch Assessment and Plan - Plan Culture negative seroma still quite erythematous will dw Dr Onelia garcia [employer], fungal cultures anticipate dicontinuation of abx dc zosyn now
[2018-05-21] MEDS: Sodium Chloride 0.9% 2 ML Flush BID IV.FLUSH SCH (21:06)
[2018-05-22] MEDS: Morphine Inj 4 MG/ML Vial IV.PUSH PRN (00:31)
[2018-05-22] MEDS: HYDROmorphone PF Inj 1 MG/ML Ampul IV.PUSH PRN ×2 (01:29→21:29)
[2018-05-22 08:05] LABS: Hematocrit 28.2 % (35.0-46.0); Hemoglobin 9.3 gm/dL (11.6-15.3); Mean Corpuscular Hemoglobin 30.9 pg (27.0-34.0); Mean Corpuscular Volume 93.7 fL (80.0-100.0); Mean Platelet Volume 9.5 fL (7.0-11.0); Platelet Count 71 th/mm3 (150-450); Red Cell Distribution Width 17.7 % (11.6-17.2); White Blood Count 5.7 th/mm3 (4.0-11.0)
--- NOTE | 2018-05-22 08:37 | P.CONCA ---
History of Present Illness Primary Care Provider: UNKNOWN Chief Complaint: Left arm swelling History of Present Illness: 77-year-old female with ESRD on HD, HTN, DVT/PE on chronic anticoagulation. The patient was admitted on 05/17 with infection of left upper extremity AVF dialysis graft. She underwent operative debridement with vascular surgery . She has been seen by ID and has been treated with IV antibiotics, cultures have been negative. Overnight on 05/21 she was noted to have 15 beats of NSVT and for this we are consulted. Also on telemetry review some short (few seconds ) episodes of narrow complex tachycardia, rate around 130, appears to be irregular. She denies any palpitations. She denies any prior history of atrial fibrillation or ventricular tachycardia. She reports she is on metoprolol for blood pressure, and she only takes it when she feels like her blood pressure is high. She reports shortness of breath whenever she stands up that quickly improved. She reports fleeting anterior chest discomfort about 3 times a week that lasts for about a second. She denies any prior history of heart disease. She had an echocardiogram performed 01/20/18 that showed EF 65% with mild valvular disease. EKG shows NSR with no ischemic changes noted. Review of Systems All other systems reviewed negative except as stated in HPI PMFSH - History History Provided By: Patient, Medical Record - Medical History Medical History: Medical History (Last Reviewed 05/17/18 @ 22:04 by Dewayne Yanez MD) Absent parathyroid gland Anemia DVT (deep venous thrombosis) Diverticulitis of colon with perforation End stage renal disease on dialysis History of blood product transfusion Hx of hysterectomy Hypertension Ileostomy in place Pulmonary embolism Vascular dialysis catheter in place - Surgical History Surgical History: Surgical History (Last Reviewed 05/17/18 @ 22:04 by Dewayne Yanez MD) History of arteriovenous graft Hx of colostomy Hx of ileostomy - Family History Family History: Family History (Last Reviewed 05/17/18 @ 22:04 by Dewayne Yanez MD) Son Kidney disease Daughter Kidney disease - Tobacco History Second Hand Smoke Exposure: No Smoking Status: Never smoker - Alcohol History How Often Do You Have a Drink Containing Alcohol: Never - Substance Use History Substance History: No History of Abuse - Travel History Recent Travel in the [place] Within the Last 8 Weeks: No Recent Travel Out of the Country Within the Last 8 Weeks: No - Immunization History Tetanus Immunization: Unsure Hx Influenza Vaccine This Season: Yes Medications and Allergies Active Medications: Active Medications Acetaminophen (Tylenol) 650 mg PO Q4H PRN PRN Reason: Temp > 100.4 Last Admin: 05/19/18 12:00 Dose: 650 mg Hydrocodone Bitart/Acetaminophen ([place] 5/325) 2 tab PO Q4H PRN PRN Reason: PAIN SCALE 1 TO 10 Last Admin: 05/21/18 23:14 Dose: 2 tab Al Hydroxide/Mg Hydroxide (Milk Of Narayan Lam) 30 ml PO Q12H PRN PRN Reason: Mild Constipation Clonidine HCl (Catapres) 0.1 mg PO UNSCH PRN PRN Reason: SEE LABEL COMMENTS Diphenhydramine HCl (Benadryl) 25 mg PO UNSCH PRN PRN Reason: SEE LABEL COMMENTS Epoetin Justice (Epogen Inj) 4,000 unit IV.PUSH UNSCH PRN PRN Reason: SEE LABEL COMMENTS Last Admin: 05/20/18 10:25 Dose: 4,000 unit Gelatin (Gelfoam 12 Mm/7 Mm Topical) 1 foam TOPICAL PRN PRN PRN Reason: help stop bleeding from site Gentamicin Sulfate (Gentamicin Inj) 20 mg OTHER WITH DIALYSIS PRN PRN Reason: Dwell Gentamycin Lock Last Admin: 05/20/18 10:25 Dose: 20 mg Heparin Sodium (Porcine) (Heparin Inj) 8,000 units OTHER WITH DIALYSIS PRN PRN Reason: for machine prime Heparin Sodium (Porcine) (Heparin Inj) 1,000 units OTHER WITH DIALYSIS PRN PRN Reason: Dwell Heparin to Fill Catheter Last Admin: 05/20/18 10:26 Dose: 1,000 units Hydromorphone HCl (Dilaudid Pf Inj) 1 mg IV.PUSH Q2H PRN PRN Reason: SEVERE PAIN Last Admin: 05/22/18 01:29 Dose: 1 mg Heparin Sodium/Dextrose (Heparin/D5w 25,000 U/250 Ml) 25,000 unit in 250 mls @ 0 mls/hr IV.CONT TITRATE PRN; Protocol PRN Reason: Per Protocol Last Titration: 05/22/18 01:30 Dose: 1,000 units/hr, 10 mls/hr Albumin Human (Flexbumin 25% Inj) 100 mls @ 60 mls/hr IV.SIG WITH DIALYSIS PRN PRN Reason: hypotension / volume replace Last Infusion: 05/18/18 09:26 Dose: Infused Sodium Chloride (Ns Inj) 1,000 mls @ 0 mls/hr OTHER .Q0M PRN PRN Reason: for prime and rinse back Sodium Chloride (Ns Inj) 1,000 mls @ 200 mls/hr OTHER .Q5H PRN PRN Reason: for dialyzer flush PRN Sodium Chloride (Ns Inj) 1,000 mls @ 0 mls/hr IV.CONT .Q0M PRN PRN Reason: hypotension / volume replace Vancomycin HCl 1,000 mg/ (Sodium Chloride) 250 mls @ 250 mls/hr IV.SIG WITH DIALYSIS [facility] Last Infusion: 05/20/18 13:06 Dose: Infused Lactobacillus Acidophilus (Lactinex) 1 tab PO TID [facility] Last Admin: 05/21/18 17:23 Dose: 1 tab Mannitol (Mannitol Inj) 12.5 gm IV.PUSH UNSCH PRN PRN Reason: hypotension / volume replace Metoprolol Succinate (Toprol Xl) 50 mg PO BID [facility] Last Admin: 05/21/18 21:05 Dose: 50 mg Morphine Sulfate (Morphine Inj) 2 mg IV.PUSH Q4H PRN PRN Reason: Pain 3 to 6 Morphine Sulfate (Morphine Inj) 4 mg IV.PUSH Q4H PRN PRN Reason: Pain 7 to 10 Last Admin: 05/22/18 00:31 Dose: 4 mg Nitroglycerin (Nitrostat Sl) 0.4 mg SL Q5M PRN PRN Reason: CHEST PAIN Ondansetron HCl (Zofran Inj) 4 mg IV.PUSH Q6H PRN PRN Reason: NAUSEA OR VOMITING Last Admin: 05/21/18 16:55 Dose: 4 mg Ondansetron HCl (Zofran Inj) 4 mg IV.PUSH UNSCH PRN PRN Reason: NAUSEA OR VOMITING Sodium Chloride (Ns Flush) 5 ml IV.FLUSH PRN PRN PRN Reason: flush each lumen during HD Last Admin: 05/21/18 08:13 Dose: 5 ml Sodium Chloride (Ns Flush) 2 ml IV.FLUSH BID [facility] Last Admin: 05/21/18 21:06 Dose: Not Given Sodium Chloride (Ns Flush) 2 ml IV.FLUSH PRN PRN PRN Reason: FLUSH AFTER USING IV ACCESS Allergies Allergy/AdvReac Type Severity Reaction Status Date / Time Sulfa (Sulfonamide Allergy Swelling Verified 05/17/18 12:38 Antibiotics) Home Medications Medication Instructions Recorded Confirmed Type tramadol 50 mg PO Q8HR 01/10/18 05/18/18 History metoprolol succinate 50 mg PO BID 02/05/18 05/18/18 History cephalexin [Keflex] 500 mg PO BID 05/17/18 05/18/18 History warfarin 3 mg PO Q OTHER DAY 05/17/18 05/18/18 History warfarin 4 mg PO Q OTHER DAY 05/17/18 05/18/18 History Exam Vital signs: Vital Signs 05/21/18 08:33 05/21/18 09:00 05/21/18 10:19 Temperature 98.1 F Pulse Rate 86 86 81 Respiratory Rate 18 Blood Pressure 116/57 L Pulse Oximetry 99 05/21/18 11:00 05/21/18 12:00 05/21/18 13:00 Temperature 98.0 F Pulse Rate 96 H 96 H 80 Respiratory Rate 18 Blood Pressure 83/50 L Pulse Oximetry 100 05/21/18 14:00 05/21/18 15:00 05/21/18 16:00 Temperature 97.5 F L Pulse Rate 90 87 92 H Respiratory Rate 20 Blood Pressure 158/63 H Pulse Oximetry 100 05/21/18 17:00 05/21/18 18:00 05/21/18 19:00 Temperature 98.9 F Pulse Rate 92 H 94 H 89 Respiratory Rate 18 Blood Pressure 133/72 Pulse Oximetry 98 05/21/18 20:00 05/21/18 21:00 05/21/18 22:00 Temperature Pulse Rate 94 H 90 92 H Respiratory Rate Blood Pressure Pulse Oximetry 05/21/18 23:00 05/22/18 00:00 05/22/18 01:00 Temperature 98.9 F Pulse Rate 85 92 H 94 H Respiratory Rate 16 Blood Pressure 143/68 H Pulse Oximetry 100 05/22/18 02:00 05/22/18 03:00 05/22/18 04:00 Temperature 98.7 F Pulse Rate 84 81 84 Respiratory Rate 16 Blood Pressure 104/54 L Pulse Oximetry 96 05/22/18 05:00 05/22/18 06:00 05/22/18 07:00 Temperature 97.9 F Pulse Rate 84 88 86 Respiratory Rate 16 Blood Pressure 127/66 Pulse Oximetry 98 Intake & Output 05/21/18 05/22/18 05/22/18 18:59 06:59 18:59 Intake Total 530 / 530 240 / 240 Output Total 280 / 280 55 / 55 Balance 250 / 250 185 / 185 Weight 125 lb 7.088 oz Intake: IV 50 / 50 Zosyn 2.25 GM Premix 50 ML @ 50 / 50 100 mls/hr IV.SIG Q12H [place] Rx#: [id number] Oral 480 / 480 240 / 240 Output: Stool 250 / 250 Wound Drainage 30 / 30 55 / 55 # 1 Left Upper Arm NATHAN Drain 25 / 25 20 / 20 # 2 Left Arm NATHAN Drain 5 / 5 35 / 35 Other: # Voids 3 2 Date of Last Bowel Movement 05/21/18 05/21/18 05/22/18 # Bowel Movements 3 Narrative: GENERAL: Well-developed well-nourished. In no acute distress. NECK: No carotid bruits. No JVD. CARDIOVASCULAR: Regular rate and rhythm. 1/6 murmur, best appreciated at the apex. RESPIRATORY: No accessory muscle use. Clear to auscultation. Breath sounds equal bilaterally. MUSCULOSKELETAL: No clubbing or cyanosis. No edema. LUE AVF with swelling and clean dressing in place. NEUROLOGICAL: Awake and alert. Normal speech. Results 05/22/18 07:33 05/22/18 07:33 Coagulation 05/21/18 05/22/18 05/22/18 Range/Units 04:00 00:36 07:33 PT 12.3 H (9.8-11.6) sec APTT 76.0 H 64.6 H (23.4-31.7) sec CBC 05/21/18 05/22/18 Range/Units 04:00 07:33 WBC 5.7 5.7 (4.0-11.0) th/mm3 RBC 2.89 L 3.00 L (4.00-5.30) mil/mm3 Hgb 9.0 L 9.3 L (11.6-15.3) gm/dL Hct 26.7 L 28.2 L (35.0-46.0) % Plt Count 67 L 71 L (150-450) th/mm3 Comprehensive Metabolic Panel 05/21/18 Range/Units 04:10 Sodium 132 L (136-145) meq/L Potassium 4.3 (3.5-5.1) meq/L Chloride 99 (98-107) meq/L Carbon Dioxide 27.1 (21.0-32.0) meq/L BUN 32 H (7-18) mg/dL Creatinine 4.02 H (0.50-1.00) mg/dL Calcium 8.5 (8.5-10.1) mg/dL Intake and Output 05/21/18 05/22/18 05/22/18 22:59 06:59 14:59 Intake Total 530 / 530 240 / 240 Output Total 280 / 280 55 / 55 Balance 250 / 250 185 / 185 Intake: IV 50 / 50 Zosyn 2.25 GM Premix 50 ML @ 50 / 50 100 mls/hr IV.SIG Q12H [place] Rx#: [id number] Oral 480 / 480 240 / 240 Output: Stool 250 / 250 Wound Drainage 30 / 30 55 / 55 # 1 Left Upper Arm NATHAN Drain 25 / 25 20 / 20 # 2 Left Arm NATHAN Drain 5 / 5 35 / 35 Other: # Voids 3 2 Date of Last Bowel Movement 05/21/18 05/21/18 05/22/18 # Bowel Movements 3 Weight 125 lb 7.088 oz Assessment and Plan - Plan 77-year-old female with ESRD on HD, HTN, DVT/PE on chronic anticoagulation who was admitted for left upper extremity dialysis graft infection/seroma. During admission she was noted to have 15 beats of NSVT and we were consulted for this. NSVT: Consider ischemic evaluation with Lexiscan. Continue beta-stephanie. A fib: Paroxysmal. On chronic anticoagulation with warfarin as outpatient and heparin GTT currently while admitted. Discussed Condition With: Patient, RN, Dr. Hatch
[2018-05-22 08:46] LABS: Eosinophils 2 % (0-4); Lymphocytes 12 % (9-44); Monocytes 5 % (0-8)
[2018-05-22 08:47] LABS: Calcium 8.4 mg/dL (8.5-10.1); Carbon Dioxide 21.5 meq/L (21.0-32.0); Potassium 5.4 meq/L (3.5-5.1)
[2018-05-22 08:48] LABS: Ovalocytes 1+; Platelet Morphology Normal (Normal)
--- NOTE | 2018-05-22 11:00 | P.PNIM ---
Subjective Interval history: Mrs. Hare is a 77-year-old female. She has a chronic medical history of dialysis dependence with left arm graft. Previously she has had infection of the left arm which was treated with vancomycin and Keflex. She is been infection free but returns again complaining of 3 days of worsening redness, chills, and suspected infection. Indeed, her left arm shows strong evidence for cellulitic infection and suspicion for graft infection. Sepsis criteria are not present at time of admit but suspicion for serious infection remains based on clinical exam and patient's reported symptoms. Zosyn and vancomycin are provided at the deltoid in the ER at approximately 1600 on 05/17/2018. Patient's only other complaint is headache. 11-25 Attempted to see to the multiple times. She has been in dialysis and went emergently to the OR. Will follow up. 11-26 Patient reports she is feeling tired but no acute issues. Pain at the surgical site is controlled with pain medications. She did states she has no feelings in the left hand since the first surgery. 11-27 Patient seen during dialysis. She reports she is feeling tired. No fevers or chills. 11-28 Patient says she is feeling right. She reports brief episode of right sided chest pain this afternoon which has resolved. Denies any current chest pain or shortness of breath. 11-29 SEEN AT HD DW RN AND PT HAS HD ACCESS IN LEFT CHEST NO NAUSEA, NO VOMITING RESTING IN HD AM LABS RELOAD COUMADIN 5MG PO DAILY GOAL INR 2.0 TO 3.0 Physical Exam Vital signs: Vital Signs 05/21/18 11:00 05/21/18 12:00 05/21/18 13:00 Temperature 98.0 F Pulse Rate 96 H 96 H 80 Respiratory Rate 18 Blood Pressure 83/50 L Pulse Oximetry 100 05/21/18 14:00 05/21/18 15:00 05/21/18 16:00 Temperature 97.5 F L Pulse Rate 90 87 92 H Respiratory Rate 20 Blood Pressure 158/63 H Pulse Oximetry 100 05/21/18 17:00 05/21/18 18:00 05/21/18 19:00 Temperature 98.9 F Pulse Rate 92 H 94 H 89 Respiratory Rate 18 Blood Pressure 133/72 Pulse Oximetry 98 05/21/18 20:00 05/21/18 21:00 05/21/18 22:00 Temperature Pulse Rate 94 H 90 92 H Respiratory Rate Blood Pressure Pulse Oximetry 05/21/18 23:00 05/22/18 00:00 05/22/18 01:00 Temperature 98.9 F Pulse Rate 85 92 H 94 H Respiratory Rate 16 Blood Pressure 143/68 H Pulse Oximetry 100 05/22/18 02:00 05/22/18 03:00 05/22/18 04:00 Temperature 98.7 F Pulse Rate 84 81 84 Respiratory Rate 16 Blood Pressure 104/54 L Pulse Oximetry 96 05/22/18 05:00 05/22/18 06:00 05/22/18 07:00 Temperature 97.9 F Pulse Rate 84 88 87 Respiratory Rate 16 Blood Pressure 127/66 Pulse Oximetry 98 Intake & Output 05/21/18 05/22/18 05/22/18 18:59 06:59 18:59 Intake Total 530 / 530 240 / 240 Output Total 280 / 280 55 / 55 Balance 250 / 250 185 / 185 Weight 56.9 kg Intake: IV 50 / 50 Zosyn 2.25 GM Premix 50 ML @ 50 / 50 100 mls/hr IV.SIG Q12H [place] Rx#: [id number] Oral 480 / 480 240 / 240 Output: Stool 250 / 250 Wound Drainage 30 / 30 55 / 55 # 1 Left Upper Arm NATHAN Drain 25 / 25 20 / 20 # 2 Left Arm NATHAN Drain 5 / 5 35 / 35 Other: # Voids 3 2 Date of Last Bowel Movement 05/21/18 05/21/18 05/22/18 # Bowel Movements 3 Narrative: GENERAL: Patient sitting up in bed eating. Appears comfortable. SKIN: Warm and dry. HEAD: Normocephalic. EYES: No scleral icterus. No injection or drainage. NECK: Supple, trachea midline. No JVD. CARDIOVASCULAR: Regular rate and rhythm without murmurs, gallops, or rubs. RESPIRATORY: Breath sounds equal bilaterally. No accessory muscle use. GASTROINTESTINAL: Abdomen soft, non-tender, nondistended. Ileostomy MUSCULOSKELETAL: No cyanosis, or edema. Right upper extremity with dressing clean dry and intact. Peripheral perfusion intact. BACK: Nontender without obvious deformity. No CVA tenderness. Results - Labs CBC & Chem 7: 05/22/18 07:33 05/22/18 07:33 Laboratory Results - last 24 hr 05/22/18 05/22/18 05/22/18 00:36 07:33 07:33 WBC 5.7 RBC 3.00 L Hgb 9.3 L Hct 28.2 L MCV 93.7 MCH 30.9 MCHC 33.0 RDW 17.7 H Plt Count 71 L MPV 9.5 Prelim Diff (Auto) Manual diff required WBC Differential Manual diff final Seg Neuts % (Manual) 81 H Lymphocytes % (Manual) 12 Monocytes % (Manual) 5 Eosinophils % (Manual) 2 Abs Neuts (Manual) 4.6 Differential Comment . Platelet Estimate Low L Platelet Morphology Normal Ovalocytes 1+ H APTT 76.0 H Sodium 131 L Potassium 5.4 H D Chloride 99 Carbon Dioxide 21.5 Anion Gap 11 BUN 50 H Creatinine 5.21 H Estimated GFR 8 L Random Glucose 84 Calcium 8.4 L 05/22/18 07:33 WBC RBC Hgb Hct MCV MCH MCHC RDW Plt Count MPV Prelim Diff (Auto) WBC Differential Seg Neuts % (Manual) Lymphocytes % (Manual) Monocytes % (Manual) Eosinophils % (Manual) Abs Neuts (Manual) Differential Comment Platelet Estimate Platelet Morphology Ovalocytes APTT 64.6 H Sodium Potassium Chloride Carbon Dioxide Anion Gap BUN Creatinine Estimated GFR Random Glucose Calcium Microbiology 05/18/18 16:15 Tissue - Arm Acid Fast Bacilli Smear - Final No acid fast bacilli seen 05/18/18 16:15 Other Acid Fast Bacilli Smear - Final No acid fast bacilli seen 05/19/18 04:28 Blood - Peripheral Aerobic Blood Culture - Preliminary No growth in 2 days 05/19/18 04:28 Blood - Peripheral Anaerobic Blood Culture - Preliminary No growth in 2 days 05/19/18 04:25 Blood - Peripheral Aerobic Blood Culture - Preliminary No growth in 2 days 05/19/18 04:25 Blood - Peripheral Anaerobic Blood Culture - Preliminary No growth in 2 days 05/18/18 16:15 Tissue - Other Gram Stain - Final 05/18/18 16:15 Tissue - Other Wound Culture - Final No growth in 72 hours (aerobically and anaerobically ) 05/18/18 16:07 Wound - Other Gram Stain - Final 05/18/18 16:07 Wound - Other Wound Culture - Final No growth in 72 hours (aerobically and anaerobically ) 05/18/18 16:15 Wound - Arm Gram Stain - Final 05/18/18 16:15 Wound - Arm Wound Culture - Final No growth in 72 hours (aerobically and anaerobically ) 05/18/18 16:07 Wound - Other Fungal Smear - Final No fungal elements seen 05/18/18 16:15 Tissue - Arm Fungal Smear - Final No fungal elements seen 05/18/18 16:15 Other Fungal Smear - Final No fungal elements seen - Procedures Date: 05/18/18 17:57 Initialization Date: 05/18/18 17:57 Preoperative Diagnosis: Left upper extremity abscess Postoperative Diagnosis: Left upper extremity seroma Date of procedure: 05/18/18 Procedure: #1 incision and drainage of a left axillary seroma #2 incision and drainage of the left arm seroma [facility]: Jameson Omalley MD Estimated blood loss (mL): 400 Operation and Findings: Findings #1 symptomatic left arm and eft axillary large seroma. There is no evidence of infection intraoperatively. #2 I obtained intraoperative Gram stain that was negative for organisms. #3 I will attempt left upper extremity AV graft preservation. will await final culture, patient may need graft explantation. Description of the procedure The patient was taken to the operating room, laid supine on the OR table. After general trach anesthesia the patient was prepped and draped in the standard sterile fashion. Timeout was called with all members in the OR in agreement. An incision was made in the left arm and dissection was taken down through the subcutaneous tissues electrocautery. The proximal inflow of the AV graft was identified and proximal control was obtained. No attention was turned to the arm fluid collection. The incision was made and dissection was taken down through the subcutaneous tissues electrocautery. The fluid collection was entered and a large amount of serous fluid that was blood-tinged was obtained. There is no purulent discharge identified into the cavity. The seroma capsule was excised. Cultures were obtained and sent for permanent cultures and Gram stain. Hemostasis was achieved. Now attention was turned to the left axillary fluid collection. The previously healed scar was reopened. The fluid was drained and was noted to be serous. The seroma capsule was excised. And hemostasis achieved. There is extensive oozing was noted throughout the whole procedure. Hemostasis was achieved using. 2 #19 NATHAN drain placed into the wounds and brought through the skin using a different stab wound and secured using a nylon suture. The wound was closed in multiple layers of Vicryl suture followed by nylon suture. Sterile dressing and a compression dressing was applied. There was a good thrill into the AV graft. There is a palpable radial pulse at the end of the procedure. The patient tolerated the procedure well and was taken to recovery unit in stable condition. Conclusion 77-year-old female status post left upper extremity AV graft revision. She was admitted to the hospital with a possible AV graft infection. There is a small amount of purulent discharge on physical exam but intraoperatively there were 2 large seromas with no evidence of infection. I drained the seroma and will attempt graft preservation. I will follow with the final culture to determine if graft explantation is needed. Assessment and Plan - Plan 77-year-old female admitted secondary to left arm graft infection and cellulitis. S/P surgical intervention which revealed 2 large seromas that were drained. Continue to follow cultures. Vascular surgery and Nephrology following. Will need to bridge back to Coumadin. Left arm graft infection Left arm cellulitis Appreciate vascular surgery following. Exam on admission showed a small amount of purulent discharge. Intraoperatively there were 2 large seromas that were drained. Nephrology following. Continue broad-spectrum antibiotics with Zosyn and vancomycin. Vancomycin dosing per nephrology. Follow cultures. No growth so far. = 05/21. Still with no growth. Continues on wound VAC. Consult ID for final antibiotic recommendations. Appreciate vascular surgery assistance. End-stage renal disease Chronic dialysis dependence Nephrology following =Continue hemodialysis. Appreciate nephrology assistance Acute on chronic anemia secondary to blood loss. s/p seroma drainage as above. Follow CBC. = Hemoglobin stable. Hypertension Continue baseline treatment Follow blood pressures Adjust treatments as needed DVT (deep venous thrombosis) Pulmonary embolism Continue heparin. Will need to bridge back to Coumadin if no other procedures planned. Patient is normally on Coumadin. = 05/21. Cleared to restart heparin drip. RESTART COUMADIN 5MG PO DAILY FOR GOAL OF 2.0 TO 3.0 15 beats of ventricular tachycardia On 05/21. Asymptomatic. Basic labs reviewed. Cardiology consulted. History of diverticulosis History of bowel perforation related to diverticulitis Ileostomy in place Supportive care Follow clinically DVT prophylaxis Heparin Discussed Condition With: Patient, nurse Discharge Planning: Hopefully home in the next few days when cleared by infectious disease, vascular surgery. =May need bridging back to warfarin for DVT. Unable to do Lovenox due to renal failure. START RELOADING COUMADIN AT 5MG PO DAILY FOR GOAL OF 2.0 TO 3.0 Code Status: FULL CODE Discussed Condition With: RN AND PT Discharge Planning: ONCE INR IS THERAPEUTIC AND CLEARED BY ID AND NEPHROLOGY
[2018-05-22] MEDS: Vancomycin Inj 1,000 MG in Sodium Chlor 0.9% Inj 250 ML IV.SIG SCH (11:02)
[2018-05-22] MEDS: Heparin 10,000 UNITS/10 ML Vial (for IV use) OTHER PRN (11:03)
--- NOTE | 2018-05-22 12:01 | P.PNNP ---
Subjective Interval history: Patient seen during hemodialysis tolerating it well Physical Exam Vital signs: Vital Signs 05/21/18 13:00 05/21/18 14:00 05/21/18 15:00 Temperature 97.5 F L Pulse Rate 80 90 87 Respiratory Rate 20 Blood Pressure 158/63 H Pulse Oximetry 100 05/21/18 16:00 05/21/18 17:00 05/21/18 18:00 Temperature Pulse Rate 92 H 92 H 94 H Respiratory Rate Blood Pressure Pulse Oximetry 05/21/18 19:00 05/21/18 20:00 05/21/18 21:00 Temperature 98.9 F Pulse Rate 89 94 H 90 Respiratory Rate 18 Blood Pressure 133/72 Pulse Oximetry 98 05/21/18 22:00 05/21/18 23:00 05/22/18 00:00 Temperature 98.9 F Pulse Rate 92 H 85 92 H Respiratory Rate 16 Blood Pressure 143/68 H Pulse Oximetry 100 05/22/18 01:00 05/22/18 02:00 05/22/18 03:00 Temperature 98.7 F Pulse Rate 94 H 84 81 Respiratory Rate 16 Blood Pressure 104/54 L Pulse Oximetry 96 05/22/18 04:00 05/22/18 05:00 05/22/18 06:00 Temperature Pulse Rate 84 84 88 Respiratory Rate Blood Pressure Pulse Oximetry 05/22/18 07:00 Temperature 97.9 F Pulse Rate 87 Respiratory Rate 16 Blood Pressure 127/66 Pulse Oximetry 98 Intake & Output 05/21/18 05/22/18 05/22/18 18:59 06:59 18:59 Intake Total 530 / 530 240 / 240 Output Total 280 / 280 55 / 55 Balance 250 / 250 185 / 185 Weight 56.9 kg Intake: IV 50 / 50 Zosyn 2.25 GM Premix 50 ML @ 50 / 50 100 mls/hr IV.SIG Q12H [place] Rx#: [id number] Oral 480 / 480 240 / 240 Output: Stool 250 / 250 Wound Drainage 30 / 30 55 / 55 # 1 Left Upper Arm NATHAN Drain 25 / 25 20 / 20 # 2 Left Arm NATHAN Drain 5 / 5 35 / 35 Other: # Voids 3 2 Date of Last Bowel Movement 05/21/18 05/21/18 05/22/18 # Bowel Movements 3 Narrative: GENERAL: Patient sitting up in bed eating. Appears comfortable. SKIN: Warm and dry. HEAD: Normocephalic. EYES: No scleral icterus. No injection or drainage. NECK: Supple, trachea midline. No JVD. CARDIOVASCULAR: Regular rate and rhythm without murmurs, gallops, or rubs. RESPIRATORY: Breath sounds equal bilaterally. No accessory muscle use. GASTROINTESTINAL: Abdomen soft, non-tender, nondistended. Ileostomy MUSCULOSKELETAL: No cyanosis, or edema. Right upper extremity with dressing clean dry and intact. Peripheral perfusion intact. BACK: Nontender without obvious deformity. No CVA tenderness. Assessment and Plan - Assessment (1) ESRD on dialysis Code(s): N18.6 - End stage renal disease; Z99.2 - Dependence on renal dialysis Status: Chronic (2) Hypertension Code(s): I10 - Essential (primary) hypertension Status: Chronic Qualifiers: Hypertension type: renovascular hypertension Qualified Code(s): I15.0 - Renovascular hypertension (3) Sepsis Code(s): A41.9 - Sepsis, unspecified organism Status: Acute (4) Cellulitis of left upper arm Code(s): L03.114 - Cellulitis of left upper limb Status: Acute (5) Hyperkalemia Code(s): E87.5 - Hyperkalemia Status: Acute - Plan Patient is seen during hemodialysis she is tolerating it well Left arm is wrapped, AV graft was preserved, seroma was drained cultures are so far negative Hemodialysis seen during dialysis blood pressure is low 1.2 L of ultrafiltration. Potassium is 5.4.
--- NOTE | 2018-05-22 12:15 | ECG ---
Date Performed: 05/21/2018 Time Performed: 15:16:32 PTAGE: 77 years EKG: Sinus rhythm . Normal ECG Since the PREVIOUS TRACING , no significant change noted PREVIOUS TRACING DOCTOR: Tigre Dickerson Interpretating Date/Time 05/22/2018 12:13:09
--- NOTE | 2018-05-22 12:30 | P.PNVS ---
Subjective Procedure: incision and drainage of L axillary/L arm seroma Subjective/Hospital Course: 77/F s/p I&D Left axillary/arm seroma POD 4 doing well, pain controlled Objective Vital Signs / I&O: Vital Signs 05/21/18 13:00 05/21/18 14:00 05/21/18 15:00 Temperature 97.5 F L Pulse Rate 80 90 87 Respiratory Rate 20 Blood Pressure 158/63 H Pulse Oximetry 100 05/21/18 16:00 05/21/18 17:00 05/21/18 18:00 Temperature Pulse Rate 92 H 92 H 94 H Respiratory Rate Blood Pressure Pulse Oximetry 05/21/18 19:00 05/21/18 20:00 05/21/18 21:00 Temperature 98.9 F Pulse Rate 89 94 H 90 Respiratory Rate 18 Blood Pressure 133/72 Pulse Oximetry 98 05/21/18 22:00 05/21/18 23:00 05/22/18 00:00 Temperature 98.9 F Pulse Rate 92 H 85 92 H Respiratory Rate 16 Blood Pressure 143/68 H Pulse Oximetry 100 05/22/18 01:00 05/22/18 02:00 05/22/18 03:00 Temperature 98.7 F Pulse Rate 94 H 84 81 Respiratory Rate 16 Blood Pressure 104/54 L Pulse Oximetry 96 05/22/18 04:00 05/22/18 05:00 05/22/18 06:00 Temperature Pulse Rate 84 84 88 Respiratory Rate Blood Pressure Pulse Oximetry 05/22/18 07:00 Temperature 97.9 F Pulse Rate 87 Respiratory Rate 16 Blood Pressure 127/66 Pulse Oximetry 98 Intake & Output 05/21/18 05/22/18 05/22/18 18:59 06:59 18:59 Intake Total 530 / 530 240 / 240 Output Total 280 / 280 55 / 55 Balance 250 / 250 185 / 185 Weight 56.9 kg Intake: IV 50 / 50 Zosyn 2.25 GM Premix 50 ML @ 50 / 50 100 mls/hr IV.SIG Q12H [place] Rx#: [id number] Oral 480 / 480 240 / 240 Output: Stool 250 / 250 Wound Drainage 30 / 30 55 / 55 # 1 Left Upper Arm NATHAN Drain 25 / 25 20 / 20 # 2 Left Arm NATHAN Drain 5 / 5 35 / 35 Other: # Voids 3 2 Date of Last Bowel Movement 05/21/18 05/21/18 05/22/18 # Bowel Movements 3 Exam: LUE wound, CDI NATHAN with SS output Laboratory Results - last 24 hr 05/22/18 05/22/18 05/22/18 00:36 07:33 07:33 WBC 5.7 RBC 3.00 L Hgb 9.3 L Hct 28.2 L MCV 93.7 MCH 30.9 MCHC 33.0 RDW 17.7 H Plt Count 71 L MPV 9.5 Prelim Diff (Auto) Manual diff required WBC Differential Manual diff final Seg Neuts % (Manual) 81 H Lymphocytes % (Manual) 12 Monocytes % (Manual) 5 Eosinophils % (Manual) 2 Abs Neuts (Manual) 4.6 Differential Comment . Platelet Estimate Low L Platelet Morphology Normal Ovalocytes 1+ H APTT 76.0 H Sodium 131 L Potassium 5.4 H D Chloride 99 Carbon Dioxide 21.5 Anion Gap 11 BUN 50 H Creatinine 5.21 H Estimated GFR 8 L Random Glucose 84 Calcium 8.4 L 05/22/18 07:33 WBC RBC Hgb Hct MCV MCH MCHC RDW Plt Count MPV Prelim Diff (Auto) WBC Differential Seg Neuts % (Manual) Lymphocytes % (Manual) Monocytes % (Manual) Eosinophils % (Manual) Abs Neuts (Manual) Differential Comment Platelet Estimate Platelet Morphology Ovalocytes APTT 64.6 H Sodium Potassium Chloride Carbon Dioxide Anion Gap BUN Creatinine Estimated GFR Random Glucose Calcium Microbiology 05/19/18 04:28 Aerobic Blood Culture - Preliminary Blood - Peripheral No growth in 3 days Anaerobic Blood Culture - Preliminary No growth in 3 days 05/19/18 04:25 Aerobic Blood Culture - Preliminary Blood - Peripheral No growth in 3 days Anaerobic Blood Culture - Preliminary No growth in 3 days 05/18/18 16:15 Acid Fast Bacilli Smear - Final Tissue - Arm No acid fast bacilli seen 05/18/18 16:15 Acid Fast Bacilli Smear - Final Other No acid fast bacilli seen 05/18/18 16:15 Gram Stain - Final Tissue - Other Wound Culture - Final No growth in 72 hours (aerobically and anaerobically) 05/18/18 16:07 Gram Stain - Final Wound - Other Wound Culture - Final No growth in 72 hours (aerobically and anaerobically) 05/18/18 16:15 Gram Stain - Final Wound - Arm Wound Culture - Final No growth in 72 hours (aerobically and anaerobically) 05/18/18 16:07 Fungal Smear - Final Wound - Other No fungal elements seen 05/18/18 16:15 Fungal Smear - Final Tissue - Arm No fungal elements seen 05/18/18 16:15 Fungal Smear - Final Other No fungal elements seen Assessment and Plan - Plan 77/F s/p Left upper extremity I&D (seroma) culture NTD DC axillary NATHAN drain
[2018-05-22] MEDS: Lactobacillus Acidophilus/L. Spores Tablet PO SCH ×3 (13:32→17:41)
[2018-05-22] MEDS: Sodium Chloride 0.9% 2 ML Flush BID IV.FLUSH SCH ×2 (13:33→21:30)
[2018-05-22 15:20] LABS: INR 1.1 Ratio; Prothrombin Time 10.9 sec (9.8-11.6)
[2018-05-22] MEDS: Heparin Drip 25,000 UNIT/250 ML BAG IV.CONT PRN (17:17)
[2018-05-23] MEDS: HYDROmorphone PF Inj 1 MG/ML Ampul IV.PUSH PRN (05:15)
[2018-05-23 05:35] LABS: Baso # (Auto) 0.1 th/mm3 (0.0-0.2); Baso % (Auto) 0.8 % (0.0-2.0); Eos # (Auto) 0.4 th/mm3 (0.0-0.4); Eos % (Auto) 5.9 % (0.0-4.0); Hematocrit 29.1 % (35.0-46.0); Hemoglobin 9.6 gm/dL (11.6-15.3); Lymph # (Auto) 2.5 th/mm3 (1.0-4.8); Mean Corpuscular HGB Conc 32.9 % (32.0-36.0); Mean Corpuscular Volume 94.1 fL (80.0-100.0); Mean Platelet Volume 8.8 fL (7.0-11.0); Mono # (Auto) 0.5 th/mm3 (0.0-0.9); Mono % (Auto) 7.9 % (0.0-8.0); Neut # (Auto) 3.1 th/mm3 (1.8-7.7); Neut % (Auto) 47.4 % (16.0-70.0); Platelet Count 71 th/mm3 (150-450); Red Cell Distribution Width 17.3 % (11.6-17.2); White Blood Count 6.5 th/mm3 (4.0-11.0)
[2018-05-23 05:44] LABS: Activated Partial Thrombo Time 56.3 sec (23.4-31.7); INR 1.2 Ratio; Prothrombin Time 11.8 sec (9.8-11.6)
[2018-05-23 06:03] LABS: Albumin 2.6 g/dL (3.4-5.0); Anion Gap 5 meq/L (5-15); Aspartate Aminotransferase 18 U/L (15-37); Blood Urea Nitrogen 34 mg/dL (7-18); Calcium 8.7 mg/dL (8.5-10.1); Carbon Dioxide 28.8 meq/L (21.0-32.0); Chloride 98 meq/L (98-107); Glomerular Filtration Rate 11 mL/min (>89); Glucose,Random 86 mg/dL (74-106); Magnesium 1.7 mg/dL (1.5-2.5); Potassium 4.7 meq/L (3.5-5.1); Sodium 132 meq/L (136-145)
[2018-05-23 06:11] LABS: Alanine Aminotransferase 19 U/L (10-53); Alkaline Phosphatase 139 U/L (45-117); Free T4 (Free Thyroxine) 0.82 ng/dL (0.76-1.46); Phosphorus 2.1 mg/dL (2.5-4.9); Total Protein 6.4 g/dL (6.4-8.2)
[2018-05-23 07:11] LABS: Eosinophils 4 % (0-4); Lymphocytes 31 % (9-44); Monocytes 7 % (0-8); Platelet Morphology Normal (Normal); Tallied Nucleated RBC 2 (0-0)
[2018-05-23 07:12] LABS: RBC Morphology Normal (Normal)
--- NOTE | 2018-05-23 07:52 | P.PNCA ---
Subjective Interval history: feeling well overnight. No chest pain, sob or palpitations. lexiscan and echo planned for today, she is npo. telemetry showed ~5 beats of narrow complex tachycardia yesterday morning. Medications and Allergies Active Medications: Active Medications Acetaminophen (Tylenol) 650 mg PO Q4H PRN PRN Reason: Temp > 100.4 Last Admin: 05/19/18 12:00 Dose: 650 mg Hydrocodone Bitart/Acetaminophen (Marydel 5/325) 2 tab PO Q4H PRN PRN Reason: PAIN SCALE 1 TO 10 Last Admin: 05/22/18 22:58 Dose: 2 tab Al Hydroxide/Mg Hydroxide (Milk Of Narayan Lam) 30 ml PO Q12H PRN PRN Reason: Mild Constipation Clonidine HCl (Catapres) 0.1 mg PO UNSCH PRN PRN Reason: SEE LABEL COMMENTS Diphenhydramine HCl (Benadryl) 25 mg PO UNSCH PRN PRN Reason: SEE LABEL COMMENTS Epoetin Justice (Epogen Inj) 4,000 unit IV.PUSH UNSCH PRN PRN Reason: SEE LABEL COMMENTS Last Admin: 05/22/18 11:01 Dose: 4,000 unit Gelatin (Gelfoam 12 Mm/7 Mm Topical) 1 foam TOPICAL PRN PRN PRN Reason: help stop bleeding from site Gentamicin Sulfate (Gentamicin Inj) 20 mg OTHER WITH DIALYSIS PRN PRN Reason: Dwell Gentamycin Lock Last Admin: 05/22/18 11:01 Dose: 20 mg Heparin Sodium (Porcine) (Heparin Inj) 8,000 units OTHER WITH DIALYSIS PRN PRN Reason: for machine prime Heparin Sodium (Porcine) (Heparin Inj) 1,000 units OTHER WITH DIALYSIS PRN PRN Reason: Dwell Heparin to Fill Catheter Last Admin: 05/22/18 11:03 Dose: 1,000 units Hydromorphone HCl (Dilaudid Pf Inj) 1 mg IV.PUSH Q2H PRN PRN Reason: SEVERE PAIN Last Admin: 05/23/18 05:15 Dose: 1 mg Heparin Sodium/Dextrose (Heparin/D5w 25,000 U/250 Ml) 25,000 unit in 250 mls @ 0 mls/hr IV.CONT TITRATE PRN; Protocol PRN Reason: Per Protocol Last Admin: 05/22/18 17:17 Dose: 1,100 units/hr, 11 mls/hr Albumin Human (Flexbumin 25% Inj) 100 mls @ 60 mls/hr IV.SIG WITH DIALYSIS PRN PRN Reason: hypotension / volume replace Last Infusion: 05/18/18 09:26 Dose: Infused Sodium Chloride (Ns Inj) 1,000 mls @ 0 mls/hr OTHER .Q0M PRN PRN Reason: for prime and rinse back Sodium Chloride (Ns Inj) 1,000 mls @ 200 mls/hr OTHER .Q5H PRN PRN Reason: for dialyzer flush PRN Sodium Chloride (Ns Inj) 1,000 mls @ 0 mls/hr IV.CONT .Q0M PRN PRN Reason: hypotension / volume replace Vancomycin HCl 1,000 mg/ (Sodium Chloride) 250 mls @ 250 mls/hr IV.SIG WITH DIALYSIS [facility] Last Infusion: 05/23/18 05:50 Dose: Infused Lactobacillus Acidophilus (Lactinex) 1 tab PO TID [facility] Last Admin: 05/22/18 17:41 Dose: 1 tab Mannitol (Mannitol Inj) 12.5 gm IV.PUSH UNSCH PRN PRN Reason: hypotension / volume replace Metoprolol Succinate (Toprol Xl) 50 mg PO BID [facility] Last Admin: 05/22/18 21:30 Dose: 50 mg Morphine Sulfate (Morphine Inj) 2 mg IV.PUSH Q4H PRN PRN Reason: Pain 3 to 6 Morphine Sulfate (Morphine Inj) 4 mg IV.PUSH Q4H PRN PRN Reason: Pain 7 to 10 Last Admin: 05/22/18 00:31 Dose: 4 mg Nitroglycerin (Nitrostat Sl) 0.4 mg SL Q5M PRN PRN Reason: CHEST PAIN Ondansetron HCl (Zofran Inj) 4 mg IV.PUSH Q6H PRN PRN Reason: NAUSEA OR VOMITING Last Admin: 05/21/18 16:55 Dose: 4 mg Ondansetron HCl (Zofran Inj) 4 mg IV.PUSH UNSCH PRN PRN Reason: NAUSEA OR VOMITING Sodium Chloride (Ns Flush) 5 ml IV.FLUSH PRN PRN PRN Reason: flush each lumen during HD Last Admin: 05/21/18 08:13 Dose: 5 ml Sodium Chloride (Ns Flush) 2 ml IV.FLUSH BID [facility] Last Admin: 05/22/18 21:30 Dose: Not Given Sodium Chloride (Ns Flush) 2 ml IV.FLUSH PRN PRN PRN Reason: FLUSH AFTER USING IV ACCESS Warfarin Sodium (Coumadin) 5 mg PO DAILY@1600 [place] Last Admin: 05/22/18 16:50 Dose: 5 mg Allergies Allergy/AdvReac Type Severity Reaction Status Date / Time Sulfa (Sulfonamide Allergy Swelling Verified 05/17/18 12:38 Antibiotics) Home Medications Medication Instructions Recorded Confirmed Type tramadol 50 mg PO Q8HR 01/10/18 05/18/18 History metoprolol succinate 50 mg PO BID 02/05/18 05/18/18 History cephalexin [Keflex] 500 mg PO BID 05/17/18 05/18/18 History warfarin 3 mg PO Q OTHER DAY 05/17/18 05/18/18 History warfarin 4 mg PO Q OTHER DAY 05/17/18 05/18/18 History Physical Exam Vital signs: Vital Signs 05/22/18 12:00 05/22/18 13:00 05/22/18 14:00 Temperature Pulse Rate 92 H 94 H 106 H Respiratory Rate Blood Pressure Pulse Oximetry 05/22/18 15:00 05/22/18 16:00 05/22/18 17:00 Temperature 98.3 F Pulse Rate 91 H 90 90 Respiratory Rate 16 Blood Pressure 99/47 L Pulse Oximetry 98 05/22/18 18:00 05/22/18 19:00 05/22/18 20:00 Temperature 98.2 F Pulse Rate 106 H 95 H 98 H Respiratory Rate 22 Blood Pressure 148/77 H Pulse Oximetry 100 05/22/18 21:00 05/22/18 22:00 05/22/18 23:00 Temperature 98.6 F Pulse Rate 98 H 92 H 92 H Respiratory Rate 16 Blood Pressure 124/64 Pulse Oximetry 100 05/23/18 00:00 05/23/18 01:00 05/23/18 02:00 Temperature Pulse Rate 72 82 84 Respiratory Rate Blood Pressure Pulse Oximetry 05/23/18 03:00 05/23/18 04:00 05/23/18 05:00 Temperature 98.4 F Pulse Rate 83 82 89 Respiratory Rate 16 Blood Pressure 112/60 Pulse Oximetry 98 05/23/18 06:00 Temperature Pulse Rate 79 Respiratory Rate Blood Pressure Pulse Oximetry Intake & Output 05/22/18 05/23/18 05/23/18 18:59 06:59 18:59 Intake Total 970 / 970 490 / 490 Output Total 1240 / 1240 50 / 50 Balance -270 / -270 440 / 440 Weight 54.9 kg Intake: IV 250 / 250 250 / 250 Heparin/D5W 25,000 U/250 mL 25, 250 / 250 000 unit In 250 ml @ Per Protocol IV.CONT TITRATE PRN Rx #:[id number] Vancomycin Inj 1,000 MG In NS 250 / 250 Inj 250 ML @ 250 mls/hr IV.SIG WITH DIALYSIS [facility] Rx#:[id number] Oral 720 / 720 240 / 240 Output: Hemodialysis Amount 1200 / 1200 Wound Drainage 40 / 40 50 / 50 # 1 Left Upper Arm NATHAN Drain 45 / 45 # 2 Left Arm NATHAN Drain 5 / 5 Other: # Voids 3 2 Date of Last Bowel Movement 05/22/18 05/21/18 # Bowel Movements 3 Narrative: GENERAL: resting comfortably in bed. SKIN: Warm and dry. HEAD: Normocephalic. EYES: No scleral icterus. No injection or drainage. NECK: Supple, trachea midline. No JVD. CARDIOVASCULAR: Regular rate , II/ systolic murmur.No gallops, or rubs. RESPIRATORY: Breath sounds equal bilaterally. No accessory muscle use. GASTROINTESTINAL: Abdomen soft, non-tender, nondistended. Ileostomy MUSCULOSKELETAL: No cyanosis, or edema. Right upper extremity with dressing clean dry and intact. Peripheral perfusion intact. Results 05/23/18 05:20 05/23/18 05:20 Cardiac Enzymes 05/23/18 Range/Units 05:20 AST 18 (15-37) U/L Coagulation 05/22/18 05/22/18 05/22/18 Range/Units 00:36 07:33 14:07 PT 10.9 (9.8-11.6) sec APTT 76.0 H 64.6 H (23.4-31.7) sec 05/22/18 05/22/18 05/23/18 Range/Units 14:07 22:53 05:20 PT 11.8 H (9.8-11.6) sec APTT 29.4 D 49.5 H D 56.3 H (23.4-31.7) sec CBC 05/22/18 05/23/18 Range/Units 07:33 05:20 WBC 5.7 6.5 (4.0-11.0) th/mm3 RBC 3.00 L 3.10 L (4.00-5.30) mil/mm3 Hgb 9.3 L 9.6 L (11.6-15.3) gm/dL Hct 28.2 L 29.1 L (35.0-46.0) % Plt Count 71 L 71 L (150-450) th/mm3 Neut # (Auto) 3.1 (1.8-7.7) th/mm3 Lymph # (Auto) 2.5 (1.0-4.8) th/mm3 [place] # (Auto) 0.5 (0.0-0.9) th/mm3 Eos # (Auto) 0.4 (0.0-0.4) th/mm3 Baso # (Auto) 0.1 (0.0-0.2) th/mm3 Comprehensive Metabolic Panel 05/22/18 05/23/18 Range/Units 07:33 05:20 Sodium 131 L 132 L (136-145) meq/L Potassium 5.4 H D 4.7 (3.5-5.1) meq/L Chloride 99 98 (98-107) meq/L Carbon Dioxide 21.5 28.8 (21.0-32.0) meq/L BUN 50 H 34 H (7-18) mg/dL Creatinine 5.21 H 3.92 H (0.50-1.00) mg/dL Calcium 8.4 L 8.7 (8.5-10.1) mg/dL AST 18 (15-37) U/L ALT 19 (10-53) U/L Alkaline Phosphatase 139 H (45-117) U/L Total Protein 6.4 D (6.4-8.2) g/dL Albumin 2.6 L (3.4-5.0) g/dL Intake and Output 05/22/18 05/23/18 05/23/18 22:59 06:59 14:59 Intake Total 970 / 970 490 / 490 Output Total 40 / 40 50 / 50 Balance 930 / 930 440 / 440 Intake: IV 250 / 250 250 / 250 Heparin/D5W 25,000 U/250 mL 25, 250 / 250 000 unit In 250 ml @ Per Protocol IV.CONT TITRATE PRN Rx #:[id number] Vancomycin Inj 1,000 MG In NS 250 / 250 Inj 250 ML @ 250 mls/hr IV.SIG WITH DIALYSIS [place] Rx#:[id number] Oral 720 / 720 240 / 240 Output: Wound Drainage 40 / 40 50 / 50 # 1 Left Upper Arm NATHAN Drain 30 / 30 45 / 45 # 2 Left Arm NATHAN Drain 10 5 / 5 Other: # Voids 3 2 Date of Last Bowel Movement 05/21/18 05/21/18 # Bowel Movements 3 Weight 54.9 kg Assessment and Plan - Assessment (1) NSVT (nonsustained ventricular tachycardia) Code(s): I47.2 - Ventricular tachycardia Status: Acute - Plan 77-year-old female with ESRD on HD, HTN, DVT/PE on chronic anticoagulation who was admitted for left upper extremity dialysis graft infection/seroma. Seroma drained yesterday. During admission she was noted to have 15 beats of NSVT and we were consulted for this. NSVT: lexiscan planned for today to rule out ischemia. keep npo. cont metoprolol XL 50mg BID. no chest pain. A fib: Paroxysmal. On chronic anticoagulation with warfarin as outpatient and heparin GTT currently while admitted. INR 1.2 systolic murmur- assess with 2D echo today. appears well compensated.
[2018-05-23] MEDS ORDERED: Regadenoson Inj 0.4 MG/5 ML Syringe IV.PUSH ONE (09:15)
--- NOTE | 2018-05-23 09:27 | P.PN ---
Subjective Interval history: awake and alert, interafctive no complains of pain back from myodcadial perfusio study Left UE- examined- mild swelling- dutures intact hemodailysis due tomorrow Physical Exam Vital signs: Vital Signs 05/22/18 12:00 05/22/18 13:00 05/22/18 14:00 Temperature Pulse Rate 92 H 94 H 106 H Respiratory Rate Blood Pressure Pulse Oximetry 05/22/18 15:00 05/22/18 16:00 05/22/18 17:00 Temperature 98.3 F Pulse Rate 91 H 90 90 Respiratory Rate 16 Blood Pressure 99/47 L Pulse Oximetry 98 05/22/18 18:00 05/22/18 19:00 05/22/18 20:00 Temperature 98.2 F Pulse Rate 106 H 95 H 98 H Respiratory Rate 22 Blood Pressure 148/77 H Pulse Oximetry 100 05/22/18 21:00 05/22/18 22:00 05/22/18 23:00 Temperature 98.6 F Pulse Rate 98 H 92 H 92 H Respiratory Rate 16 Blood Pressure 124/64 Pulse Oximetry 100 05/23/18 00:00 05/23/18 01:00 05/23/18 02:00 Temperature Pulse Rate 72 82 84 Respiratory Rate Blood Pressure Pulse Oximetry 05/23/18 03:00 05/23/18 04:00 05/23/18 05:00 Temperature 98.4 F Pulse Rate 83 82 89 Respiratory Rate 16 Blood Pressure 112/60 Pulse Oximetry 98 05/23/18 06:00 Temperature Pulse Rate 79 Respiratory Rate Blood Pressure Pulse Oximetry Intake & Output 05/22/18 05/23/18 05/23/18 18:59 06:59 18:59 Intake Total 970 / 970 490 / 490 Output Total 1240 / 1240 50 / 50 Balance -270 / -270 440 / 440 Weight 54.9 kg Intake: IV 250 / 250 250 / 250 Heparin/D5W 25,000 U/250 mL 25, 250 / 250 000 unit In 250 ml @ Per Protocol IV.CONT TITRATE PRN Rx #:[id number] Vancomycin Inj 1,000 MG In NS 250 / 250 Inj 250 ML @ 250 mls/hr IV.SIG [facility] [place] Rx#:[id number] Oral 720 / 720 240 / 240 Output: Hemodialysis Amount 1200 / 1200 Wound Drainage 40 / 40 50 / 50 # 1 Left Upper Arm NATHAN Drain 45 / 45 # 2 Left Arm NATHAN Drain 5 / 5 Other: # Voids 3 2 Date of Last Bowel Movement 05/22/18 05/21/18 # Bowel Movements 3 Narrative: GENERAL: resting comfortably in bed.awake and alert SKIN: Warm and dry. HEAD: Normocephalic. EYES: No scleral icterus. No injection or drainage. NECK: Supple, trachea midline. No JVD. CARDIOVASCULAR: Regular rate , II/ systolic murmur.No gallops, or rubs. RESPIRATORY: Breath sounds equal bilaterally. No accessory muscle use. GASTROINTESTINAL: Abdomen soft, non-tender, nondistended. Ileostomy MUSCULOSKELETAL: No cyanosis, or edema. Left UE,mild swelling - sutures intact - at bedside- drain was pulled out- no signs of usrrounding erythema LE- good epripheral pulses, no edema Results - Labs CBC & Chem 7: 05/23/18 05:20 05/23/18 05:20 Laboratory Results - last 24 hr 05/22/18 05/22/18 05/22/18 14:07 14:07 22:53 WBC RBC Hgb Hct MCV MCH MCHC RDW Plt Count MPV Prelim Diff (Auto) Neut % (Auto) Lymph % (Auto) [place] % (Auto) Eos % (Auto) Baso % (Auto) Neut # (Auto) Lymph # (Auto) [place] # (Auto) Eos # (Auto) Baso # (Auto) WBC Differential Seg Neuts % (Manual) Lymphocytes % (Manual) Monocytes % (Manual) Eosinophils % (Manual) Abs Neuts (Manual) Nucleated RBCs/100 WBC Differential Comment Platelet Estimate Platelet Morphology RBC Morphology PT 10.9 INR 1.1 APTT 29.4 D 49.5 H D Sodium Potassium Chloride Carbon Dioxide Anion Gap BUN Creatinine Estimated GFR Random Glucose Calcium Phosphorus Magnesium Total Bilirubin AST ALT Alkaline Phosphatase Total Protein Albumin TSH Free T4 05/23/18 05/23/18 05/23/18 05:20 05:20 05:20 WBC 6.5 RBC 3.10 L Hgb 9.6 L Hct 29.1 L MCV 94.1 MCH 31.0 MCHC 32.9 RDW 17.3 H Plt Count 71 L MPV 8.8 Prelim Diff (Auto) Slide review pending Neut % (Auto) 47.4 Lymph % (Auto) 38.0 [place] % (Auto) 7.9 Eos % (Auto) 5.9 H Baso % (Auto) 0.8 Neut # (Auto) 3.1 Lymph # (Auto) 2.5 [place] # (Auto) 0.5 Eos # (Auto) 0.4 Baso # (Auto) 0.1 WBC Differential Manual diff final Seg Neuts % (Manual) 58 Lymphocytes % (Manual) 31 Monocytes % (Manual) 7 Eosinophils % (Manual) 4 Abs Neuts (Manual) 3.8 Nucleated RBCs/100 WBC 2 H Differential Comment . Platelet Estimate Low L Platelet Morphology Normal RBC Morphology Normal PT 11.8 H INR 1.2 APTT 56.3 H Sodium 132 L Potassium 4.7 Chloride 98 Carbon Dioxide 28.8 Anion Gap 5 BUN 34 H Creatinine 3.92 H Estimated GFR 11 L Random Glucose 86 Calcium 8.7 Phosphorus 2.1 L Magnesium 1.7 Total Bilirubin 0.3 AST 18 ALT 19 Alkaline Phosphatase 139 H Total Protein 6.4 D Albumin 2.6 L TSH 1.530 Free T4 0.82 Microbiology 05/19/18 04:28 Blood - Peripheral Aerobic Blood Culture - Preliminary No growth in 3 days 05/19/18 04:28 Blood - Peripheral Anaerobic Blood Culture - Preliminary No growth in 3 days 05/19/18 04:25 Blood - Peripheral Aerobic Blood Culture - Preliminary No growth in 3 days 05/19/18 04:25 Blood - Peripheral Anaerobic Blood Culture - Preliminary No growth in 3 days - Procedures Date: 05/18/18 17:57 Initialization Date: 05/18/18 17:57 Preoperative Diagnosis: Left upper extremity abscess Postoperative Diagnosis: Left upper extremity seroma Date of procedure: 05/18/18 Procedure: #1 incision and drainage of a left axillary seroma #2 incision and drainage of the left arm seroma Anesthesia: ELVIRA Surgeon: Jameson Omalley MD Estimated blood loss (mL): 400 Operation and Findings: Findings #1 symptomatic left arm and eft axillary large seroma. There is no evidence of infection intraoperatively. #2 I obtained intraoperative Gram stain that was negative for organisms. #3 I will attempt left upper extremity AV graft preservation. will await final culture, patient may need graft explantation. Description of the procedure The patient was taken to the operating room, laid supine on the OR table. After general trach anesthesia the patient was prepped and draped in the standard sterile fashion. Timeout was called with all members in the OR in agreement. An incision was made in the left arm and dissection was taken down through the subcutaneous tissues electrocautery. The proximal inflow of the AV graft was identified and proximal control was obtained. No attention was turned to the arm fluid collection. The incision was made and dissection was taken down through the subcutaneous tissues electrocautery. The fluid collection was entered and a large amount of serous fluid that was blood-tinged was obtained. There is no purulent discharge identified into the cavity. The seroma capsule was excised. Cultures were obtained and sent for permanent cultures and Gram stain. Hemostasis was achieved. Now attention was turned to the left axillary fluid collection. The previously healed scar was reopened. The fluid was drained and was noted to be serous. The seroma capsule was excised. And hemostasis achieved. There is extensive oozing was noted throughout the whole procedure. Hemostasis was achieved using. 2 #19 NATHAN drain placed into the wounds and brought through the skin using a different stab wound and secured using a nylon suture. The wound was closed in multiple layers of Vicryl suture followed by nylon suture. Sterile dressing and a compression dressing was applied. There was a good thrill into the AV graft. There is a palpable radial pulse at the end of the procedure. The patient tolerated the procedure well and was taken to recovery unit in stable condition. Conclusion 77-year-old female status post left upper extremity AV graft revision. She was admitted to the hospital with a possible AV graft infection. There is a small amount of purulent discharge on physical exam but intraoperatively there were 2 large seromas with no evidence of infection. I drained the seroma and will attempt graft preservation. I will follow with the final culture to determine if graft explantation is needed. Assessment and Plan - Plan 77-year-old female admitted secondary to left arm graft infection and cellulitis. S/P surgical intervention which revealed 2 large seromas that were drained. Continue to follow cultures. Vascular surgery and Nephrology following. Will need to bridge back to Coumadin. Left arm graft infection Left arm cellulitis Appreciate vascular surgery following. Exam on admission showed a small amount of purulent discharge. Intraoperatively there were 2 large seromas that were drained. Nephrology following. Continue broad-spectrum antibiotics with Zosyn and vancomycin. Vancomycin dosing per nephrology. Follow cultures. No growth so far. ID ff Vascular surgery ff drain removed from Left arm today 05/23 End-stage renal disease Chronic dialysis dependence Nephrology following =Continue hemodialysis. Appreciate nephrology assistance Acute on chronic anemia secondary to blood loss. s/p seroma drainage as above. Follow CBC. = Hemoglobin stable. Hypertension Continue baseline treatment Follow blood pressures Adjust treatments as needed DVT (deep venous thrombosis) Pulmonary embolism Continue heparin. Will need to bridge back to Coumadin if no other procedures planned. Patient is normally on Coumadin. = 05/21. Cleared to restart heparin drip. RESTART COUMADIN 5MG PO DAILY FOR GOAL OF 2.0 TO 3.0 15 beats of ventricular tachycardia On 05/21. Asymptomatic. Basic labs reviewed. Cardiology ff - Lexiscan study doen today- negative History of diverticulosis History of bowel perforation related to diverticulitis Ileostomy in place Supportive care Follow clinically DVT prophylaxis Heparin/coumadin Discussed Condition With: Patient, nurse Discharge Planning: Hopefully home in the next few days when cleared by infectious disease, vascular surgery. =May need bridging back to warfarin for DVT. Unable to do Lovenox due to renal failure. START RELOADING COUMADIN AT 5MG PO DAILY FOR GOAL OF 2.0 TO 3.0 Code Status: FULL CODE Discussed Condition With: RN AND PT Discharge Planning: ONCE INR IS THERAPEUTIC AND CLEARED BY ID AND NEPHROLOGY
[2018-05-23 10:11] LABS: Hemoglobin A1c 5.3 % (4.3-6.0)
--- NOTE | 2018-05-23 10:50 | NM ---
EXAM DATE: 05/23/2018 10:44 AM EST AGE/SEX: 77 years / Female INDICATIONS:Abnormal EKG. . Shortness of breath for one day. CLINICAL DATA: This is the patient's initial encounter. Patient reports that signs and symptoms have been present for 1 day and indicates a pain score of 0/10. MEDICAL/SURGICAL HISTORY: Renal disease, end stage. Hypertension. Hysterectomy. Colostomy. COMPARISON: No prior exams available for comparison. No external comparison. DOSE: 8.5 mCi Tc 99m Myoview at rest 25.4 mCi [id number] at stress 0.4 mg Lexiscan STRESS SYMPTOMS: Dyspnea and dizziness. EJECTION FRACTION: >70 % TECHNIQUE: The patient underwent pharmacologic stress with infusion of prescribed dose. Continuous ECG tracing was monitored during stress. Gated SPECT imaging was performed after stress and conventi onal SPECT imaging was performed at rest. The examination was performed on a SPECT/CT scanner, both attenuation and non-corrected datasets were reviewed. FINDINGS: Distribution: The maximum perfused segment at stress is in the anteroseptal wall. Perfusion Study: The pattern of perfusion at stress is within normal limits. Gated Study: There are intact wall motion and wall thickening without hypokinetic or dyskinetic segm ents. The ejection fraction is calculated at >70%. RISK CATEGORY: Low (<1% Annual Motality Rate) CONCLUSION: Negative examination. Electronically signed by: Amos Gil MD 05/23/2018 10:49 AM EST
--- NOTE | 2018-05-23 10:59 | P.PNNP ---
Subjective Interval history: Patient is doing well undergoing nuclear scan for cardiac stress test Physical Exam Vital signs: Vital Signs 05/22/18 12:00 05/22/18 13:00 05/22/18 14:00 Temperature Pulse Rate 92 H 94 H 106 H Respiratory Rate Blood Pressure Pulse Oximetry 05/22/18 15:00 05/22/18 16:00 05/22/18 17:00 Temperature 98.3 F Pulse Rate 91 H 90 90 Respiratory Rate 16 Blood Pressure 99/47 L Pulse Oximetry 98 05/22/18 18:00 05/22/18 19:00 05/22/18 20:00 Temperature 98.2 F Pulse Rate 106 H 95 H 98 H Respiratory Rate 22 Blood Pressure 148/77 H Pulse Oximetry 100 05/22/18 21:00 05/22/18 22:00 05/22/18 23:00 Temperature 98.6 F Pulse Rate 98 H 92 H 92 H Respiratory Rate 16 Blood Pressure 124/64 Pulse Oximetry 100 05/23/18 00:00 05/23/18 01:00 05/23/18 02:00 Temperature Pulse Rate 72 82 84 Respiratory Rate Blood Pressure Pulse Oximetry 05/23/18 03:00 05/23/18 04:00 05/23/18 05:00 Temperature 98.4 F Pulse Rate 83 82 89 Respiratory Rate 16 Blood Pressure 112/60 Pulse Oximetry 98 05/23/18 06:00 Temperature Pulse Rate 79 Respiratory Rate Blood Pressure Pulse Oximetry Intake & Output 05/22/18 05/23/18 05/23/18 18:59 06:59 18:59 Intake Total 970 / 970 490 / 490 Output Total 1240 / 1240 50 / 50 Balance -270 / -270 440 / 440 Weight 54.9 kg Intake: IV 250 / 250 250 / 250 Heparin/D5W 25,000 U/250 mL 25, 250 / 250 000 unit In 250 ml @ Per Protocol IV.CONT TITRATE PRN Rx #:[id number] Vancomycin Inj 1,000 MG In NS 250 / 250 Inj 250 ML @ 250 mls/hr IV.SIG [facility] [place] Rx#:[id number] Oral 720 / 720 240 / 240 Output: Hemodialysis Amount 1200 / 1200 Wound Drainage 40 / 40 50 / 50 # 1 Left Upper Arm NATHAN Drain 30 45 / 45 # 2 Left Arm NATHAN Drain 5 / 5 Other: # Voids 3 2 Date of Last Bowel Movement 05/22/18 05/21/18 # Bowel Movements 3 Narrative: GENERAL: resting comfortably in bed. SKIN: Warm and dry. HEAD: Normocephalic. EYES: No scleral icterus. No injection or drainage. NECK: Supple, trachea midline. No JVD. CARDIOVASCULAR: Regular rate , II/ systolic murmur.No gallops, or rubs. RESPIRATORY: Breath sounds equal bilaterally. No accessory muscle use. GASTROINTESTINAL: Abdomen soft, non-tender, nondistended. Ileostomy MUSCULOSKELETAL: No cyanosis, or edema. Right upper extremity with dressing clean dry and intact. Peripheral perfusion intact. Assessment and Plan - Assessment (1) ESRD on dialysis Code(s): N18.6 - End stage renal disease; Z99.2 - Dependence on renal dialysis Status: Chronic (2) Hypertension Code(s): I10 - Essential (primary) hypertension Status: Chronic Qualifiers: Hypertension type: renovascular hypertension Qualified Code(s): I15.0 - Renovascular hypertension (3) Sepsis Code(s): A41.9 - Sepsis, unspecified organism Status: Acute (4) Cellulitis of left upper arm Code(s): L03.114 - Cellulitis of left upper limb Status: Acute (5) Hyperkalemia Code(s): E87.5 - Hyperkalemia Status: Acute - Plan Patient is seen during hemodialysis she is tolerating it well Left arm is better after seroma drainage, drain still in the left arm wrapped in dressing Hemodialysis next Saturday can be discharged from nephrology point of view Cardiac stress test is pending
[2018-05-23] MEDS: Lactobacillus Acidophilus/L. Spores Tablet PO SCH ×3 (11:17→17:02)
--- NOTE | 2018-05-23 11:39 | P.PNVS ---
Subjective Procedure: incision and drainage of L axillary/L arm seroma Subjective/Hospital Course: 77/F s/p I&D Left axillary/arm seroma POD 5 doing well, pain controlled Objective Vital Signs / I&O: Vital Signs 05/22/18 12:00 05/22/18 13:00 05/22/18 14:00 Temperature Pulse Rate 92 H 94 H 106 H Respiratory Rate Blood Pressure Pulse Oximetry 05/22/18 15:00 05/22/18 16:00 05/22/18 17:00 Temperature 98.3 F Pulse Rate 91 H 90 90 Respiratory Rate 16 Blood Pressure 99/47 L Pulse Oximetry 98 05/22/18 18:00 05/22/18 19:00 05/22/18 20:00 Temperature 98.2 F Pulse Rate 106 H 95 H 98 H Respiratory Rate 22 Blood Pressure 148/77 H Pulse Oximetry 100 05/22/18 21:00 05/22/18 22:00 05/22/18 23:00 Temperature 98.6 F Pulse Rate 98 H 92 H 92 H Respiratory Rate 16 Blood Pressure 124/64 Pulse Oximetry 100 05/23/18 00:00 05/23/18 01:00 05/23/18 02:00 Temperature Pulse Rate 72 82 84 Respiratory Rate Blood Pressure Pulse Oximetry 05/23/18 03:00 05/23/18 04:00 05/23/18 05:00 Temperature 98.4 F Pulse Rate 83 82 89 Respiratory Rate 16 Blood Pressure 112/60 Pulse Oximetry 98 05/23/18 06:00 Temperature Pulse Rate 79 Respiratory Rate Blood Pressure Pulse Oximetry Intake & Output 05/22/18 05/23/18 05/23/18 18:59 06:59 18:59 Intake Total 970 / 970 490 / 490 Output Total 1240 / 1240 50 / 50 Balance -270 / -270 440 / 440 Weight 54.9 kg Intake: IV 250 / 250 250 / 250 Heparin/D5W 25,000 U/250 mL 25, 250 / 250 000 unit In 250 ml @ Per Protocol IV.CONT TITRATE PRN Rx #:[id number] Vancomycin Inj 1,000 MG In NS 250 / 250 Inj 250 ML @ 250 mls/hr IV.SIG [facility] [place] Rx#:[id number] Oral 720 / 720 240 / 240 Output: Hemodialysis Amount 1200 / 1200 Wound Drainage 40 / 40 50 / 50 # 1 Left Upper Arm NATHAN Drain 30 / 30 45 / 45 # 2 Left Arm NATHAN Drain 5 / 5 Other: # Voids 3 2 Date of Last Bowel Movement 05/22/18 05/21/18 # Bowel Movements 3 Exam: LUE wounds CDI Drains with Serous DC Pulses: LUE graft with good thrill Palpable radial pulse Laboratory Results - last 24 hr 05/22/18 05/22/18 05/22/18 14:07 14:07 22:53 WBC RBC Hgb Hct MCV MCH MCHC RDW Plt Count MPV Prelim Diff (Auto) Neut % (Auto) Lymph % (Auto) [place] % (Auto) Eos % (Auto) Baso % (Auto) Neut # (Auto) Lymph # (Auto) [place] # (Auto) Eos # (Auto) Baso # (Auto) WBC Differential Seg Neuts % (Manual) Lymphocytes % (Manual) Monocytes % (Manual) Eosinophils % (Manual) Abs Neuts (Manual) Nucleated RBCs/100 WBC Differential Comment Platelet Estimate Platelet Morphology RBC Morphology PT 10.9 INR 1.1 APTT 29.4 D 49.5 H D Sodium Potassium Chloride Carbon Dioxide Anion Gap BUN Creatinine Estimated GFR Random Glucose Hemoglobin A1c Calcium Phosphorus Magnesium Total Bilirubin AST ALT Alkaline Phosphatase Total Protein Albumin TSH Free T4 05/23/18 05/23/18 05/23/18 05:20 05:20 05:20 WBC 6.5 RBC 3.10 L Hgb 9.6 L Hct 29.1 L MCV 94.1 MCH 31.0 MCHC 32.9 RDW 17.3 H Plt Count 71 L MPV 8.8 Prelim Diff (Auto) Slide review pending Neut % (Auto) 47.4 Lymph % (Auto) 38.0 [place] % (Auto) 7.9 Eos % (Auto) 5.9 H Baso % (Auto) 0.8 Neut # (Auto) 3.1 Lymph # (Auto) 2.5 [place] # (Auto) 0.5 Eos # (Auto) 0.4 Baso # (Auto) 0.1 WBC Differential Manual diff final Seg Neuts % (Manual) 58 Lymphocytes % (Manual) 31 Monocytes % (Manual) 7 Eosinophils % (Manual) 4 Abs Neuts (Manual) 3.8 Nucleated RBCs/100 WBC 2 H Differential Comment . Platelet Estimate Low L Platelet Morphology Normal RBC Morphology Normal PT INR APTT Sodium 132 L Potassium 4.7 Chloride 98 Carbon Dioxide 28.8 Anion Gap 5 BUN 34 H Creatinine 3.92 H Estimated GFR 11 L Random Glucose 86 Hemoglobin A1c 5.3 Calcium 8.7 Phosphorus 2.1 L Magnesium 1.7 Total Bilirubin 0.3 AST 18 ALT 19 Alkaline Phosphatase 139 H Total Protein 6.4 D Albumin 2.6 L TSH 1.530 Free T4 0.82 05/23/18 05:20 WBC RBC Hgb Hct MCV MCH MCHC RDW Plt Count MPV Prelim Diff (Auto) Neut % (Auto) Lymph % (Auto) [place] % (Auto) Eos % (Auto) Baso % (Auto) Neut # (Auto) Lymph # (Auto) Cross # (Auto) Eos # (Auto) Baso # (Auto) WBC Differential Seg Neuts % (Manual) Lymphocytes % (Manual) Monocytes % (Manual) Eosinophils % (Manual) Abs Neuts (Manual) Nucleated RBCs/100 WBC Differential Comment Platelet Estimate Platelet Morphology RBC Morphology PT 11.8 H INR 1.2 APTT 56.3 H Sodium Potassium Chloride Carbon Dioxide Anion Gap BUN Creatinine Estimated GFR Random Glucose Hemoglobin A1c Calcium Phosphorus Magnesium Total Bilirubin AST ALT Alkaline Phosphatase Total Protein Albumin TSH Free T4 Microbiology 05/19/18 04:28 Aerobic Blood Culture - Preliminary Blood - Peripheral No growth in 4 days Anaerobic Blood Culture - Preliminary No growth in 4 days 05/19/18 04:25 Aerobic Blood Culture - Preliminary Blood - Peripheral No growth in 4 days Anaerobic Blood Culture - Preliminary No growth in 4 days Assessment and Plan - Plan 77/F s/p Left upper extremity I&D (seroma) culture NTD DC drains FU with final cultures and ID recs
[2018-05-23] MEDS: Sodium Chloride 0.9% 2 ML Flush BID IV.FLUSH SCH ×2 (14:08→20:29)
[2018-05-23] MEDS: Heparin Drip 25,000 UNIT/250 ML BAG IV.CONT PRN (15:27)
[2018-05-23] MEDS: Morphine Inj 4 MG/ML Vial IV.PUSH PRN (20:27)
[2018-05-24] MEDS: Morphine Inj 4 MG/ML Vial IV.PUSH PRN (03:31)
[2018-05-24 04:03] LABS: Calcium 9.2 mg/dL (8.5-10.1); Carbon Dioxide 25.1 meq/L (21.0-32.0); Potassium 5.4 meq/L (3.5-5.1)
--- NOTE | 2018-05-24 06:58 | P.PNVS ---
Subjective Post Op Day #: 6 Procedure: incision and drainage of L axillary/L arm seroma Subjective/Hospital Course: looks good; arm less swollen and steady improvement in hand mobility from swelling. no complaints Objective Vital Signs / I&O: Vital Signs 05/23/18 07:00 05/23/18 08:00 05/23/18 12:00 Temperature 98.4 F Pulse Rate 74 79 92 H Respiratory Rate 18 Blood Pressure 121/64 Pulse Oximetry 100 05/23/18 12:30 05/23/18 13:00 05/23/18 14:00 Temperature Pulse Rate 92 H 106 H 96 H Respiratory Rate 20 Blood Pressure 153/70 H Pulse Oximetry 100 05/23/18 15:00 05/23/18 16:00 05/23/18 17:00 Temperature Pulse Rate 92 H 94 H 92 H Respiratory Rate 20 Blood Pressure Pulse Oximetry 98 05/23/18 18:00 05/23/18 19:00 05/23/18 20:00 Temperature 98.1 F Pulse Rate 90 85 85 Respiratory Rate 18 Blood Pressure 144/73 H Pulse Oximetry 98 05/23/18 21:00 05/23/18 22:00 05/23/18 23:00 Temperature 98.2 F Pulse Rate 92 H 90 82 Respiratory Rate 18 Blood Pressure 134/66 Pulse Oximetry 97 05/24/18 00:00 05/24/18 01:00 05/24/18 02:00 Temperature Pulse Rate 82 84 80 Respiratory Rate Blood Pressure Pulse Oximetry 05/24/18 03:00 05/24/18 04:00 05/24/18 05:00 Temperature 98.1 F Pulse Rate 82 82 86 Respiratory Rate 18 Blood Pressure 151/66 H Pulse Oximetry 96 05/24/18 06:00 Temperature Pulse Rate 81 Respiratory Rate Blood Pressure Pulse Oximetry Intake & Output 05/23/18 05/23/18 05/24/18 06:59 18:59 06:59 Intake Total 490 / 490 1130 / 1130 480 / 480 Output Total 50 / 50 3 / 3 Balance 440 / 440 1127 / 1127 480 / 480 Weight 54.9 kg 55.4 kg Intake: IV 250 / 250 250 / 250 Heparin/D5W 25,000 U/250 mL 25, 250 / 250 000 unit In 250 ml @ Per Protocol IV.CONT TITRATE PRN Rx #:[id number] Vancomycin Inj 1,000 MG In NS 250 / 250 Inj 250 ML @ 250 mls/hr IV.SIG [facility] [place] Rx#:[id number] Oral 240 / 240 880 / 880 480 / 480 Output: Urine 3 / 3 Wound Drainage 50 / 50 # 1 Left Upper Arm NATHAN Drain 45 / 45 # 2 Left Arm NATHAN Drain 5 / 5 Other: # Voids 2 1 Date of Last Bowel Movement 05/21/18 05/23/18 05/23/18 # Bowel Movements 1 Exam: L UE proximal incision c/d/i with no swelling distal incision with modest swelling but intact no erythema good hand strength Laboratory Results - last 24 hr 05/23/18 05/23/18 05/24/18 05:20 05:20 03:12 WBC Differential Manual diff final Seg Neuts % (Manual) 58 Lymphocytes % (Manual) 31 Monocytes % (Manual) 7 Eosinophils % (Manual) 4 Abs Neuts (Manual) 3.8 Nucleated RBCs/100 WBC 2 H Platelet Estimate Low L Platelet Morphology Normal RBC Morphology Normal APTT Sodium 131 L Potassium 5.4 H Chloride 98 Carbon Dioxide 25.1 Anion Gap 8 BUN 49 H Creatinine 4.85 H Estimated GFR 9 L Random Glucose 87 Hemoglobin A1c 5.3 Calcium 9.2 05/24/18 03:12 WBC Differential Seg Neuts % (Manual) Lymphocytes % (Manual) Monocytes % (Manual) Eosinophils % (Manual) Abs Neuts (Manual) Nucleated RBCs/100 WBC Platelet Estimate Platelet Morphology RBC Morphology APTT 59.5 H Sodium Potassium Chloride Carbon Dioxide Anion Gap BUN Creatinine Estimated GFR Random Glucose Hemoglobin A1c Calcium Microbiology 05/19/18 04:28 Aerobic Blood Culture - Preliminary Blood - Peripheral No growth in 4 days Anaerobic Blood Culture - Preliminary No growth in 4 days 05/19/18 04:25 Aerobic Blood Culture - Preliminary Blood - Peripheral No growth in 4 days Anaerobic Blood Culture - Preliminary No growth in 4 days Assessment and Plan - Assessment (1) Cellulitis of left upper arm Code(s): L03.114 - Cellulitis of left upper limb Status: Acute - Plan POD#6 s/p drainage of seroma all cultures NGTD drains out incisions ok clear for discharge from a vascular surgery standpoint
[2018-05-24] MEDS: Lactobacillus Acidophilus/L. Spores Tablet PO SCH ×2 (08:22→13:00)
[2018-05-24] MEDS: Sodium Chloride 0.9% 2 ML Flush BID IV.FLUSH SCH (08:23)
--- NOTE | 2018-05-24 09:22 | P.PNNP ---
Subjective Interval history: Patient seen in HD, alert, no pain in the arm, no SOB. Physical Exam Vital signs: Vital Signs 05/23/18 12:00 05/23/18 12:30 05/23/18 13:00 Temperature Pulse Rate 92 H 92 H 106 H Respiratory Rate 20 Blood Pressure 153/70 H Pulse Oximetry 100 05/23/18 14:00 05/23/18 15:00 05/23/18 16:00 Temperature Pulse Rate 96 H 92 H 94 H Respiratory Rate 20 Blood Pressure Pulse Oximetry 98 05/23/18 17:00 05/23/18 18:00 05/23/18 19:00 Temperature 98.1 F Pulse Rate 92 H 90 85 Respiratory Rate 18 Blood Pressure 144/73 H Pulse Oximetry 98 05/23/18 20:00 05/23/18 21:00 05/23/18 22:00 Temperature Pulse Rate 85 92 H 90 Respiratory Rate Blood Pressure Pulse Oximetry 05/23/18 23:00 05/24/18 00:00 05/24/18 01:00 Temperature 98.2 F Pulse Rate 82 82 84 Respiratory Rate 18 Blood Pressure 134/66 Pulse Oximetry 97 05/24/18 02:00 05/24/18 03:00 05/24/18 04:00 Temperature 98.1 F Pulse Rate 80 82 82 Respiratory Rate 18 Blood Pressure 151/66 H Pulse Oximetry 96 05/24/18 05:00 05/24/18 06:00 05/24/18 07:00 Temperature 97.0 F L Pulse Rate 86 81 73 Respiratory Rate 20 Blood Pressure 146/73 H Pulse Oximetry 99 05/24/18 08:00 Temperature Pulse Rate 76 Respiratory Rate Blood Pressure Pulse Oximetry Intake & Output 05/23/18 05/24/18 05/24/18 18:59 06:59 18:59 Intake Total 1130 / 1130 480 / 480 Output Total 3 / 3 Balance 1127 / 1127 480 / 480 Weight 55.4 kg Intake: IV 250 / 250 Heparin/D5W 25,000 U/250 mL 25, 250 / 250 000 unit In 250 ml @ Per Protocol IV.CONT TITRATE PRN Rx #:[id number] Oral 880 / 880 480 / 480 Output: Urine 3 / 3 Other: # Voids 1 Date of Last Bowel Movement 11/30/18 11/30/18 12/01/18 # Bowel Movements 1 Narrative: GENERAL: resting comfortably in bed.awake and alert SKIN: Warm and dry. HEAD: Normocephalic. EYES: No scleral icterus. No injection or drainage. NECK: Supple, trachea midline. No JVD. CARDIOVASCULAR: Regular rate , II/ systolic murmur.No gallops, or rubs. RESPIRATORY: Breath sounds equal bilaterally. No accessory muscle use. GASTROINTESTINAL: Abdomen soft, non-tender, nondistended. Ileostomy MUSCULOSKELETAL: No cyanosis, or edema. Left UE,mild swelling - covered with dressing. LE- good peripheral pulses, mild edema Assessment and Plan - Assessment (1) ESRD on dialysis Code(s): N18.6 - End stage renal disease; Z99.2 - Dependence on renal dialysis Status: Chronic (2) Hypertension Code(s): I10 - Essential (primary) hypertension Status: Chronic Qualifiers: Hypertension type: renovascular hypertension Qualified Code(s): I15.0 - Renovascular hypertension (3) Sepsis Code(s): A41.9 - Sepsis, unspecified organism Status: Acute (4) Cellulitis of left upper arm Code(s): L03.114 - Cellulitis of left upper limb Status: Acute (5) Hyperkalemia Code(s): E87.5 - Hyperkalemia Status: Acute - Plan Patient is seen during hemodialysis she is tolerating it well Left arm is better after seroma drainage, drain still in the left arm wrapped in dressing Hemodialysis now, can be discharged from nephrology point of view Vancomycin with HD today. Hgb is stable, on Epogen.
[2018-05-24] MEDS: Vancomycin Inj 1,000 MG in Sodium Chlor 0.9% Inj 250 ML IV.SIG SCH (10:48)
--- NOTE | 2018-05-24 14:18 | P.PN ---
Subjective Interval history: doing great, had HD this am no nausea or vomiing, no pain afebrile minimal pain arm Physical Exam Vital signs: Vital Signs 05/23/18 15:00 05/23/18 16:00 05/23/18 17:00 Temperature Pulse Rate 92 H 94 H 92 H Respiratory Rate 20 Blood Pressure Pulse Oximetry 98 05/23/18 18:00 05/23/18 19:00 05/23/18 20:00 Temperature 98.1 F Pulse Rate 90 85 85 Respiratory Rate 18 Blood Pressure 144/73 H Pulse Oximetry 98 05/23/18 21:00 05/23/18 22:00 05/23/18 23:00 Temperature 98.2 F Pulse Rate 92 H 90 82 Respiratory Rate 18 Blood Pressure 134/66 Pulse Oximetry 97 05/24/18 00:00 05/24/18 01:00 05/24/18 02:00 Temperature Pulse Rate 82 84 80 Respiratory Rate Blood Pressure Pulse Oximetry 05/24/18 03:00 05/24/18 04:00 05/24/18 05:00 Temperature 98.1 F Pulse Rate 82 82 86 Respiratory Rate 18 Blood Pressure 151/66 H Pulse Oximetry 96 05/24/18 06:00 05/24/18 07:00 05/24/18 08:00 Temperature 97.0 F L Pulse Rate 81 73 76 Respiratory Rate 20 Blood Pressure 146/73 H Pulse Oximetry 99 05/24/18 12:00 05/24/18 13:00 Temperature Pulse Rate 80 101 H Respiratory Rate Blood Pressure Pulse Oximetry Intake & Output 05/23/18 05/24/18 05/24/18 18:59 06:59 18:59 Intake Total 1130 / 1130 480 / 480 Output Total 3 / 3 1000 / 1000 Balance 1127 / 1127 480 / 480 -1000 / -1000 Weight 55.4 kg Intake: IV 250 / 250 Heparin/D5W 25,000 U/250 mL 25, 250 / 250 000 unit In 250 ml @ Per Protocol IV.CONT TITRATE PRN Rx #:[id number] Oral 880 / 880 480 / 480 Output: Urine 3 / 3 Hemodialysis Amount 1000 / 1000 Other: # Voids 1 Date of Last Bowel Movement 05/23/18 05/23/18 05/24/18 # Bowel Movements 1 Narrative: anicteric neck- right IJ in place lungs- no rales regular rhythm abdomen soft, nontender LUE- dressing in place- moves all finger and elbows, drains were taken out LE no edema Results - Labs CBC & Chem 7: 05/23/18 05:20 05/24/18 03:12 Laboratory Results - last 24 hr 05/24/18 05/24/18 03:12 03:12 APTT 59.5 H Sodium 131 L Potassium 5.4 H Chloride 98 Carbon Dioxide 25.1 Anion Gap 8 BUN 49 H Creatinine 4.85 H Estimated GFR 9 L Random Glucose 87 Calcium 9.2 Microbiology 05/19/18 04:28 Blood - Peripheral Aerobic Blood Culture - Final No growth in 5 days 05/19/18 04:28 Blood - Peripheral Anaerobic Blood Culture - Final No growth in 5 days 05/19/18 04:25 Blood - Peripheral Aerobic Blood Culture - Final No growth in 5 days 05/19/18 04:25 Blood - Peripheral Anaerobic Blood Culture - Final No growth in 5 days - Procedures Date: 05/18/18 17:57 Initialization Date: 05/18/18 17:57 Preoperative Diagnosis: Left upper extremity abscess Postoperative Diagnosis: Left upper extremity seroma Date of procedure: 05/18/18 Procedure: #1 incision and drainage of a left axillary seroma #2 incision and drainage of the left arm seroma Anesthesia: [facility] Surgeon: Jameson Omalley MD Estimated blood loss (mL): 400 Operation and Findings: Findings #1 symptomatic left arm and eft axillary large seroma. There is no evidence of infection intraoperatively. #2 I obtained intraoperative Gram stain that was negative for organisms. #3 I will attempt left upper extremity AV graft preservation. will await final culture, patient may need graft explantation. Description of the procedure The patient was taken to the operating room, laid supine on the OR table. After general trach anesthesia the patient was prepped and draped in the standard sterile fashion. Timeout was called with all members in the OR in agreement. An incision was made in the left arm and dissection was taken down through the subcutaneous tissues electrocautery. The proximal inflow of the AV graft was identified and proximal control was obtained. No attention was turned to the arm fluid collection. The incision was made and dissection was taken down through the subcutaneous tissues electrocautery. The fluid collection was entered and a large amount of serous fluid that was blood-tinged was obtained. There is no purulent discharge identified into the cavity. The seroma capsule was excised. Cultures were obtained and sent for permanent cultures and Gram stain. Hemostasis was achieved. Now attention was turned to the left axillary fluid collection. The previously healed scar was reopened. The fluid was drained and was noted to be serous. The seroma capsule was excised. And hemostasis achieved. There is extensive oozing was noted throughout the whole procedure. Hemostasis was achieved using. 2 #19 NATHAN drain placed into the wounds and brought through the skin using a different stab wound and secured using a nylon suture. The wound was closed in multiple layers of Vicryl suture followed by nylon suture. Sterile dressing and a compression dressing was applied. There was a good thrill into the AV graft. There is a palpable radial pulse at the end of the procedure. The patient tolerated the procedure well and was taken to recovery unit in stable condition. Conclusion 77-year-old female status post left upper extremity AV graft revision. She was admitted to the hospital with a possible AV graft infection. There is a small amount of purulent discharge on physical exam but intraoperatively there were 2 large seromas with no evidence of infection. I drained the seroma and will attempt graft preservation. I will follow with the final culture to determine if graft explantation is needed. Assessment and Plan - Plan 77-year-old female admitted secondary to left arm graft infection and cellulitis. S/P surgical intervention which revealed 2 large seromas that were drained. Continue to follow cultures. Vascular surgery and Nephrology following. Will need to bridge back to Coumadin. Left arm graft infection Left arm cellulitis Appreciate vascular surgery following. Exam on admission showed a small amount of purulent discharge. Intraoperatively there were 2 large seromas that were drained. Nephrology following. Continue broad-spectrum antibiotics with Zosyn and vancomycin. Vancomycin dosing per nephrology. - Follow cultures. No growth so far. ID ff Vascular surgery ff drain removed from Left arm today 05/23 prn pain meds End-stage renal disease Chronic dialysis dependence Nephrology following =Continue hemodialysis. Appreciate nephrology assistance - ff up with nephrology- Dr. Borden- and Elena for HD- T// Acute on chronic anemia secondary to blood loss. s/p seroma drainage as above. Follow CBC. = Hemoglobin stable. Hypertension Continue baseline treatment Follow blood pressures Adjust treatments as needed DVT (deep venous thrombosis) Pulmonary embolism Continue heparin. Will need to bridge back to Coumadin if no other procedures planned. Patient is normally on Coumadin. d/w her to take coumadin 5 mg daily- ff INR Saturday 15 beats of ventricular tachycardia On 05/21. Asymptomatic. Basic labs reviewed. Cardiology ff - Lexiscan study doen today- negative - continue meds - OP ff up with cardiology History of diverticulosis History of bowel perforation related to diverticulitis Ileostomy in place Supportive care Follow clinically DVT prophylaxis Heparin/coumadin Discussed Condition With: Patient, nurse Discharge Planning: DC today- cleared by vascular. ID notes- no need for antibiotics restart home coumadin regimen- INR as OP- Saturday on 5 mg daily Code Status: FULL CODE Discussed Condition With: RN AND PT Discharge Planning: home today OP ff up labs- for INR
--- NOTE | 2018-05-24 14:39 | P.DS ---
Date of admission: 05/17/18 17:32 Primary care physician: UNKNOWN Anticipated date of discharge: 05/24/18 Brief History from admission: Mrs. Hare is a 77-year-old female. She has a chronic medical history of dialysis dependence with left arm graft. Previously she has had infection of the left arm which was treated with vancomycin and Keflex. She is been infection free but returns again complaining of 3 days of worsening redness, chills, and suspected infection. Indeed, her left arm shows strong evidence for cellulitic infection and suspicion for graft infection. Sepsis criteria are not present at time of admit but suspicion for serious infection remains based on clinical exam and patient's reported symptoms. Zosyn and vancomycin are provided at the deltoid in the ER at approximately 1600 on 05/17/2018. Patient's only other complaint is headache. Patient update on day of discharge: afebrile no nausea or vomiting minimal apin DS: Medications - Discharge Medications Prescriptions: oxycodone-acetaminophen [Percocet] 1 tab PO Q6HR PRN #20 tab PRN Reason: pain warfarin [Coumadin] 5 mg PO DAILY@1600 30 Days tab DS: Summary - Time Spent with Patient Total time spent providing and/or coordinating discharge services: - Quality: VTE Deep Vein Thrombosis/Pulmonary Embolism Present on Admission: No Exam Vital signs: Vital Signs 05/23/18 15:00 05/23/18 16:00 05/23/18 17:00 Temperature Pulse Rate 92 H 94 H 92 H Respiratory Rate 20 Blood Pressure Pulse Oximetry 98 05/23/18 18:00 05/23/18 19:00 05/23/18 20:00 Temperature 98.1 F Pulse Rate 90 85 85 Respiratory Rate 18 Blood Pressure 144/73 H Pulse Oximetry 98 05/23/18 21:00 05/23/18 22:00 05/23/18 23:00 Temperature 98.2 F Pulse Rate 92 H 90 82 Respiratory Rate 18 Blood Pressure 134/66 Pulse Oximetry 97 05/24/18 00:00 05/24/18 01:00 05/24/18 02:00 Temperature Pulse Rate 82 84 80 Respiratory Rate Blood Pressure Pulse Oximetry 05/24/18 03:00 05/24/18 04:00 05/24/18 05:00 Temperature 98.1 F Pulse Rate 82 82 86 Respiratory Rate 18 Blood Pressure 151/66 H Pulse Oximetry 96 05/24/18 06:00 05/24/18 07:00 05/24/18 08:00 Temperature 97.0 F L Pulse Rate 81 73 76 Respiratory Rate 20 Blood Pressure 146/73 H Pulse Oximetry 99 05/24/18 12:00 05/24/18 13:00 05/24/18 14:00 Temperature Pulse Rate 80 101 H 101 H Respiratory Rate Blood Pressure Pulse Oximetry Intake & Output 05/23/18 05/24/18 05/24/18 18:59 06:59 18:59 Intake Total 1130 / 1130 480 / 480 Output Total 3 / 3 1000 / 1000 Balance 1127 / 1127 480 / 480 -1000 / -1000 Weight 55.4 kg Intake: IV 250 / 250 Heparin/D5W 25,000 U/250 mL 25, 250 / 250 000 unit In 250 ml @ Per Protocol IV.CONT TITRATE PRN Rx #:[id number] Oral 880 / 880 480 / 480 Output: Urine 3 / 3 Hemodialysis Amount 1000 / 1000 Other: # Voids 1 Date of Last Bowel Movement 05/23/18 05/23/18 05/24/18 # Bowel Movements 1 Narrative: anicteric neck- right IJ in place lungs- no rales regular rhythm abdomen soft, nontender LUE- dressing in place- moves all finger and elbows, drains were taken out LE no edema Results Procedures completed during hospitalization: Date: 05/18/18 17:57 Initialization Date: 05/18/18 17:57 Preoperative Diagnosis: Left upper extremity abscess Postoperative Diagnosis: Left upper extremity seroma Date of procedure: 05/18/18 Procedure: #1 incision and drainage of a left axillary seroma #2 incision and drainage of the left arm seroma Anesthesia: [facility] Surgeon: Jameson Omalley MD Estimated blood loss (mL): 400 Operation and Findings: Findings #1 symptomatic left arm and eft axillary large seroma. There is no evidence of infection intraoperatively. #2 I obtained intraoperative Gram stain that was negative for organisms. #3 I will attempt left upper extremity AV graft preservation. will await final culture, patient may need graft explantation. Description of the procedure The patient was taken to the operating room, laid supine on the OR table. After general trach anesthesia the patient was prepped and draped in the standard sterile fashion. Timeout was called with all members in the OR in agreement. An incision was made in the left arm and dissection was taken down through the subcutaneous tissues electrocautery. The proximal inflow of the AV graft was identified and proximal control was obtained. No attention was turned to the arm fluid collection. The incision was made and dissection was taken down through the subcutaneous tissues electrocautery. The fluid collection was entered and a large amount of serous fluid that was blood-tinged was obtained. There is no purulent discharge identified into the cavity. The seroma capsule was excised. Cultures were obtained and sent for permanent cultures and Gram stain. Hemostasis was achieved. Now attention was turned to the left axillary fluid collection. The previously healed scar was reopened. The fluid was drained and was noted to be serous. The seroma capsule was excised. And hemostasis achieved. There is extensive oozing was noted throughout the whole procedure. Hemostasis was achieved using. 2 #19 NATHAN drain placed into the wounds and brought through the skin using a different stab wound and secured using a nylon suture. The wound was closed in multiple layers of Vicryl suture followed by nylon suture. Sterile dressing and a compression dressing was applied. There was a good thrill into the AV graft. There is a palpable radial pulse at the end of the procedure. The patient tolerated the procedure well and was taken to recovery unit in stable condition. Conclusion 77-year-old female status post left upper extremity AV graft revision. She was admitted to the hospital with a possible AV graft infection. There is a small amount of purulent discharge on physical exam but intraoperatively there were 2 large seromas with no evidence of infection. I drained the seroma and will attempt graft preservation. I will follow with the final culture to determine if graft explantation is needed. Labs on day of discharge: Labs from last 24 hours 05/24/18 05/24/18 03:12 03:12 APTT 59.5 H Sodium 131 L Potassium 5.4 H Chloride 98 Carbon Dioxide 25.1 Anion Gap 8 BUN 49 H Creatinine 4.85 H Estimated GFR 9 L Random Glucose 87 Calcium 9.2 - Impressions ITS Impressions Myocardial Perfusion Scan Nuc Med 05/23/18 00:00 CONCLUSION: Negative examination. Discharge Plan - Discharge Disposition Patient Disposition: Discharge Home - Discharge Condition Condition: Stable - Discharge Order Discharge Orders: Discharge Order (Routine); Ordered 05/24/18 Ordered By: Alfea Lacierda - Discharge Details Anticipated Discharge Date: 05/24/18 - Physicians Team Primary Care Provider: UNKNOWN, Attending Provider: Nu Marsh Other Providers: Dewayne Yanez MD ; Robles Ventura MD ; Kristin Foster ; Linda Harper MD ; Dmitriy Hatch MD - Rxs /Orders / Referrals /Forms Prescriptions: New oxycodone-acetaminophen [Percocet] 5-325 mg Tablet 1 tab PO Q6HR PRN (Reason: pain) Qty: 20 RF: 0 warfarin [Coumadin] 5 mg Tablet 5 mg PO DAILY@1600 30 Days RF: 5 Continue metoprolol succinate 50 mg Tablet Extended Release 24 Hr 50 mg PO BID Discontinued cephalexin [Keflex] 500 mg Capsule 500 mg PO BID tramadol 50 mg Tablet 50 mg PO Q8HR warfarin 3 mg tablet 3 mg PO Q OTHER DAY warfarin 4 mg Tablet 4 mg PO Q OTHER DAY Ambulatory Orders / Order Sets / DME: Prothrombin Time INR (Routine) Location: Determined by Patient Ordered By: Nu Marsh Referrals: UNKNOWN, [Primary Care Provider] - See Instructions - Discharge Instructions Patient Printed Instructions: Incision and Drainage (DC)
--- NOTE | 2018-05-24 15:57 | P.PNCA ---
Subjective Interval history: Tele showed no SVT, no arrhythmia. No chest pain Discussed with son at bedside Ready to go home. Medications and Allergies Active Medications: Active Medications Acetaminophen (Tylenol) 650 mg PO Q4H PRN PRN Reason: Temp > 100.4 Last Admin: 05/19/18 12:00 Dose: 650 mg Hydrocodone Bitart/Acetaminophen ([place] 5/325) 2 tab PO Q4H PRN PRN Reason: PAIN SCALE 1 TO 10 Last Admin: 05/24/18 13:00 Dose: 2 tab Al Hydroxide/Mg Hydroxide (Milk Of Narayan Lam) 30 ml PO Q12H PRN PRN Reason: Mild Constipation Clonidine HCl (Catapres) 0.1 mg PO UNSCH PRN PRN Reason: SEE LABEL COMMENTS Diphenhydramine HCl (Benadryl) 25 mg PO UNSCH PRN PRN Reason: SEE LABEL COMMENTS Epoetin Justice (Epogen Inj) 4,000 unit IV.PUSH UNSCH PRN PRN Reason: SEE LABEL COMMENTS Last Admin: 05/24/18 12:00 Dose: 4,000 unit Gelatin (Gelfoam 12 Mm/7 Mm Topical) 1 foam TOPICAL PRN PRN PRN Reason: help stop bleeding from site Gentamicin Sulfate (Gentamicin Inj) 20 mg OTHER WITH DIALYSIS PRN PRN Reason: Dwell Gentamycin Lock Last Admin: 05/24/18 12:00 Dose: 20 mg Heparin Sodium (Porcine) (Heparin Inj) 8,000 units OTHER WITH DIALYSIS PRN PRN Reason: for machine prime Heparin Sodium (Porcine) (Heparin Inj) 1,000 units OTHER WITH DIALYSIS PRN PRN Reason: Dwell Heparin to Fill Catheter Last Admin: 05/22/18 11:03 Dose: 1,000 units Hydromorphone HCl (Dilaudid Pf Inj) 1 mg IV.PUSH Q2H PRN PRN Reason: SEVERE PAIN Last Admin: 05/23/18 05:15 Dose: 1 mg Heparin Sodium/Dextrose (Heparin/D5w 25,000 U/250 Ml) 25,000 unit in 250 mls @ 0 mls/hr IV.CONT TITRATE PRN; Protocol PRN Reason: Per Protocol Last Admin: 05/23/18 15:27 Dose: 1,100 units/hr, 11 mls/hr Albumin Human (Flexbumin 25% Inj) 100 mls @ 60 mls/hr IV.SIG WITH DIALYSIS PRN PRN Reason: hypotension / volume replace Last Infusion: 05/18/18 09:26 Dose: Infused Sodium Chloride (Ns Inj) 1,000 mls @ 0 mls/hr OTHER .Q0M PRN PRN Reason: for prime and rinse back Sodium Chloride (Ns Inj) 1,000 mls @ 200 mls/hr OTHER .Q5H PRN PRN Reason: for dialyzer flush PRN Sodium Chloride (Ns Inj) 1,000 mls @ 0 mls/hr IV.CONT .Q0M PRN PRN Reason: hypotension / volume replace Vancomycin HCl 1,000 mg/ (Sodium Chloride) 250 mls @ 250 mls/hr IV.SIG WITH DIALYSIS [facility] Last Admin: 05/24/18 10:48 Dose: 250 mls/hr Lactobacillus Acidophilus (Lactinex) 1 tab PO TID [facility] Last Admin: 05/24/18 13:00 Dose: 1 tab Mannitol (Mannitol Inj) 12.5 gm IV.PUSH UNSCH PRN PRN Reason: hypotension / volume replace Metoprolol Succinate (Toprol Xl) 50 mg PO BID [facility] Last Admin: 05/24/18 08:22 Dose: 50 mg Morphine Sulfate (Morphine Inj) 2 mg IV.PUSH Q4H PRN PRN Reason: Pain 3 to 6 Morphine Sulfate (Morphine Inj) 4 mg IV.PUSH Q4H PRN PRN Reason: Pain 7 to 10 Last Admin: 05/24/18 03:31 Dose: 4 mg Nitroglycerin (Nitrostat Sl) 0.4 mg SL Q5M PRN PRN Reason: CHEST PAIN Ondansetron HCl (Zofran Inj) 4 mg IV.PUSH Q6H PRN PRN Reason: NAUSEA OR VOMITING Last Admin: 05/23/18 16:59 Dose: 4 mg Ondansetron HCl (Zofran Inj) 4 mg IV.PUSH UNSCH PRN PRN Reason: NAUSEA OR VOMITING Sodium Chloride (Ns Flush) 5 ml IV.FLUSH PRN PRN PRN Reason: flush each lumen during HD Last Admin: 05/21/18 08:13 Dose: 5 ml Sodium Chloride (Ns Flush) 2 ml IV.FLUSH BID [facility] Last Admin: 05/24/18 08:23 Dose: 2 ml Sodium Chloride (Ns Flush) 2 ml IV.FLUSH PRN PRN PRN Reason: FLUSH AFTER USING IV ACCESS Warfarin Sodium (Coumadin) 5 mg PO DAILY@1600 [place] Last Admin: 05/23/18 15:30 Dose: 5 mg Allergies Allergy/AdvReac Type Severity Reaction Status Date / Time Sulfa (Sulfonamide Allergy Swelling Verified 05/17/18 12:38 Antibiotics) Home Medications Medication Instructions Recorded Confirmed Type metoprolol succinate 50 mg PO BID 02/05/18 05/18/18 History Physical Exam Vital signs: Vital Signs 05/23/18 16:00 05/23/18 17:00 05/23/18 18:00 Temperature Pulse Rate 94 H 92 H 90 Respiratory Rate Blood Pressure Pulse Oximetry 05/23/18 19:00 05/23/18 20:00 05/23/18 21:00 Temperature 98.1 F Pulse Rate 85 85 92 H Respiratory Rate 18 Blood Pressure 144/73 H Pulse Oximetry 98 05/23/18 22:00 05/23/18 23:00 05/24/18 00:00 Temperature 98.2 F Pulse Rate 90 82 82 Respiratory Rate 18 Blood Pressure 134/66 Pulse Oximetry 97 05/24/18 01:00 05/24/18 02:00 05/24/18 03:00 Temperature 98.1 F Pulse Rate 84 80 82 Respiratory Rate 18 Blood Pressure 151/66 H Pulse Oximetry 96 05/24/18 04:00 05/24/18 05:00 05/24/18 06:00 Temperature Pulse Rate 82 86 81 Respiratory Rate Blood Pressure Pulse Oximetry 05/24/18 07:00 05/24/18 08:00 05/24/18 12:00 Temperature 97.0 F L Pulse Rate 73 76 80 Respiratory Rate 20 Blood Pressure 146/73 H Pulse Oximetry 99 05/24/18 13:00 05/24/18 14:00 05/24/18 14:39 Temperature 97.3 F L Pulse Rate 101 H 101 H 82 Respiratory Rate 20 Blood Pressure 109/54 L Pulse Oximetry 95 Intake & Output 05/23/18 05/24/18 05/24/18 18:59 06:59 18:59 Intake Total 1130 / 1130 480 / 480 Output Total 3 3 1000 / 1000 Balance 1127 / 1127 480 / 480 -1000 / -1000 Weight 55.4 kg Intake: IV 250 / 250 Heparin/D5W 25,000 U/250 mL 25, 250 / 250 000 unit In 250 ml @ Per Protocol IV.CONT TITRATE PRN Rx #:[id number] Oral 880 / 880 480 / 480 Output: Urine 3 / 3 Hemodialysis Amount 1000 / 1000 Other: # Voids 1 Date of Last Bowel Movement 05/23/18 05/23/18 05/24/18 # Bowel Movements 1 - Constitutional no acute distress - Routine HEENT Exam Eye: Present: EOMI, PERRL, conjunctivae pink ENT: Present: mucous membranes dry - Routine Neck Exam Present: supple, full ROM. Absent: JVD, carotid bruit - Routine Respiratory Exam Present: CTA bilaterally - Routine Cardiovascular Exam Present: RRR, S1, S2 - Routine Abdominal Exam Present: soft, normoactive bowel sounds - Routine Extremities Exam Absent: edema - Routine Neurological Exam Present: alert, oriented X3 - Routine Psychiatric Exam Present: normal affect Results 05/23/18 05:20 05/24/18 03:12 Cardiac Enzymes 05/23/18 Range/Units 05:20 AST 18 (15-37) U/L Coagulation 05/22/18 05/22/18 05/23/18 Range/Units 14:07 22:53 05:20 PT 11.8 H (9.8-11.6) sec APTT 29.4 D 49.5 H D 56.3 H (23.4-31.7) sec 05/24/18 Range/Units 03:12 PT (9.8-11.6) sec APTT 59.5 H (23.4-31.7) sec CBC 05/23/18 Range/Units 05:20 WBC 6.5 (4.0-11.0) th/mm3 RBC 3.10 L (4.00-5.30) mil/mm3 Hgb 9.6 L (11.6-15.3) gm/dL Hct 29.1 L (35.0-46.0) % Plt Count 71 L (150-450) th/mm3 Neut # (Auto) 3.1 (1.8-7.7) th/mm3 Lymph # (Auto) 2.5 (1.0-4.8) th/mm3 [place] # (Auto) 0.5 (0.0-0.9) th/mm3 Eos # (Auto) 0.4 (0.0-0.4) th/mm3 Baso # (Auto) 0.1 (0.0-0.2) th/mm3 Comprehensive Metabolic Panel 05/23/18 05/24/18 Range/Units 05:20 03:12 Sodium 132 L 131 L (136-145) meq/L Potassium 4.7 5.4 H (3.5-5.1) meq/L Chloride 98 98 (98-107) meq/L Carbon Dioxide 28.8 25.1 (21.0-32.0) meq/L BUN 34 H 49 H (7-18) mg/dL Creatinine 3.92 H 4.85 H (0.50-1.00) mg/dL Calcium 8.7 9.2 (8.5-10.1) mg/dL AST 18 (15-37) U/L ALT 19 (10-53) U/L Alkaline Phosphatase 139 H (45-117) U/L Total Protein 6.4 D (6.4-8.2) g/dL Albumin 2.6 L (3.4-5.0) g/dL Intake and Output 05/24/18 05/24/18 05/24/18 06:59 14:59 22:59 Intake Total 480 / 480 Output Total 1000 / 1000 Balance 480 / 480 -1000 / -1000 Intake: Oral 480 / 480 Output: Hemodialysis Amount 1000 / 1000 Other: # Voids 1 Date of Last Bowel Movement 05/23/18 05/24/18 # Bowel Movements 1 Weight 55.4 kg - Imaging and Cardiology Imaging: Impressions Myocardial Perfusion Scan Nuc Med 05/23/18 00:00 CONCLUSION: Negative examination. Assessment and Plan - Plan 77-year-old female with ESRD on HD, HTN, DVT/PE on chronic anticoagulation who was admitted for left upper extremity dialysis graft infection/seroma. Seroma drained yesterday. During admission she was noted to have 15 beats of NSVT and we were consulted for this. NSVT: No further recurrence. 05/23/18 Lexiscan showed no ischemia. cont metoprolol XL 50mg BID. no chest pain. A fib: Paroxysmal. On chronic anticoagulation with warfarin as outpatient Agreed discharge planning today. Follow up with [facility] cardiology in 1-2 weeks
== END 2018-05-24 16:11 | disposition home or self-care (01) ==
LOC: NEDDLT 12:03 → N05 17:32 → HCIS 05-18 18:02 → HCPC 05-18 22:15 → HCIS 05-21 12:37
PROVIDERS: ADMIT Internal Medicine; ATTEND Internal Medicine